=== PATIENT | female | born 1955 | race Caucasian/White ===

== ENCOUNTER 2022-09-21 10:07 | Outpatient (OUT) | payer MEDICARE, SELFPAY ==
--- NOTE | 2022-09-21 10:11 | XR_ITS ---
The [address] [address] Patient Name: GILLIAN HERMOSILLO MRN: [id number] date: 1955 Sex: F Assigned Patient Location: [facility] Current Patient Location: [facility] Accession/Order Number: [id number] Exam Date: 09/21/2022 10:30 Report Date: 09/21/2022 16:41 At the request of: JOSEPH DOOLEY Procedure: XR DEXA axial skeleton EXAMINATION: XR DEXA axial skeleton, 09/21/2022 10:30 AM EDT HISTORY: Postmenopausal Z78.0 COMPARISON: 2018. TECHNIQUE: Dual-energy X-ray absorptiometry (DEXA) bone density study performed for the axial skeleton. HISTORY: Postmenopausal Z78.0 FINDINGS: Bone mineral density AP spine L1-L4 measures 1.083 g/sq cm. T score -0.8. WHO classification: Normal. The lowest bone mineral densities the left femoral trochanter measuring 0.671 g/sq cm. T score -1.6. WHO classification: Osteopenia IMPRESSION: Osteopenia. Moderate fracture risk Electronically authenticated by: ENIO MOHAN Date: 09/21/2022 16:41
== END 2022-09-21 10:08 | disposition home or self-care (01) ==
LOC: RAD 10:07
PROVIDERS: PCP Family Medicine; Visit Provider Physician Assistant
DX: Z78.0 Asymptomatic menopausal state (principal); M85.852 Other specified disorders of bone density and structure, left thigh
CPT/HCPCS: 77080

== ENCOUNTER 2022-10-18 11:01 | Emergency (ER) | payer MEDICARE, SELFPAY ==
[2022-10-18 11:05] VITALS: BP 143/91; PULSE 95; RESP 18; TEMP 36.9; O2SAT 97; BMI 26.0
--- NOTE | 2022-10-18 11:16 | ED.LOWEXI1 ---
HPI - Extremity Injury (Lower) General Chief Complaint: Extremity Injury, Lower Stated Complaint: lower extremity injury right fallon Time Seen by Provider: 10/18/22 11:08 Source: patient Mode of arrival: walk-in Limitations: no limitations History of Present Illness HPI Narrative: 66-year-old female presents for a wound to her right lower leg sustained a week ago at the gym when she tripped and fell and scraped her leg. Now it's red. She is worried about infection. It's been more than ten years since her last tetanus shot. No purulent drainage and no fever. Related Data Previous Rx's Medication Instructions Recorded amoxicillin 875 mg-potassium 1 tab PO BID #20 tabs 10/18/22 clavulanate 125 mg tablet Allergies Allergy/AdvReac Type Severity Reaction Status Date / Time codeine Allergy Severe Verified 10/18/22 11:08 Review of Systems ROS Narrative A ten point review of systems is negative except as noted above. Exam Narrative Exam Narrative: Nurses note and vital signs reviewed and patient is not hypoxic. General: The patient appears well and in no apparent distress. Patient is resting comfortably on cart. Skin: Warm, dry, no pallor noted. there are two adjacent abrasions on the right lower leg anterolaterally. There is some mild surrounding erythema. No abscess appearing drainage or lymphangitis. Head: Normocephalic, atraumatic Eye: Normal conjunctiva, no drainage Ears, Nose, Mouth, and Throat: oral mucosa is moist. Nares patent. Cardiovascular: Regular Rate and Rhythm Respiratory: Patient is in no distress, no accessory muscle use, lungs are clear to auscultation, no wheezing, rales or rhonchi Back: non-tender GI: soft and nontender Musculoskeletal: The patient has no evidence of calf tenderness, no pitting edema, symmetrical pulses noted bilaterally Neurological: A&O, normal speech Psychiatric: Cooperative Constitutional Vital Signs, click to edit/add: Last Vital Signs Temp 98.4 F 10/18/22 11:05 Pulse 95 H 10/18/22 11:05 Resp 18 10/18/22 11:05 BP 143/91 H 10/18/22 11:05 Pulse Ox 97 10/18/22 11:05 O2 Del Method Room Air 10/18/22 11:05 Course Vital Signs Vital signs: Vital Signs Temperature 98.4 F 10/18/22 11:05 Pulse Rate 95 H 10/18/22 11:05 Respiratory Rate 18 10/18/22 11:05 Blood Pressure 143/91 H 10/18/22 11:05 Pulse Oximetry 97 10/18/22 11:05 Oxygen Delivery Method Room Air 10/18/22 11:05 Temperature 98.4 F 10/18/22 11:05 Pulse Rate 95 H 10/18/22 11:05 Respiratory Rate 18 10/18/22 11:05 Blood Pressure 143/91 H 10/18/22 11:05 Pulse Oximetry 97 10/18/22 11:05 Oxygen Delivery Method Room Air 10/18/22 11:05 MDM - Extremity Injury (Lower) MDM Narrative Medical decision making narrative: She has mild cellulitis of her leg. She doesn't require admission the hospital. She was given IM Ancef and tetanus status was updated and she was prescribed Augmentin. Treatment diagnosis and follow-up were discussed with the patient. Differential Diagnosis Differential diagnosis: Likely other (cellulitis, abscess, abrasion) Discharge Plan Discharge Chief Complaint: Extremity Injury, Lower Clinical Impression: Cellulitis Patient Disposition: Home, Self-Care Time of Disposition Decision: 11:40 Condition: Good Mode of Transportation: Private Vehicle Prescriptions / Home Meds: New amoxicillin-pot clavulanate 875-125 mg tablet 1 tab PO BID Qty: 20 0RF Instructions: Cellulitis (ED), Warm Compress or Soak (ED) Stand Alone Forms: Portal Instructions Referrals: Kenan Valle MD [Primary Care Provider] - 1 week
[2022-10-18] MEDS: ADACEL DIPH,PERTUSS(ACELL),TET VAC/PF 0.5 ML ADULT SYRINGE IM (11:38)
[2022-10-18] MEDS: CEFAZOLIN SODIUM 1,000 MG VIAL 1000 MG IM (11:47)
== END 2022-10-18 12:02 | disposition home or self-care (01) ==
PROVIDERS: Emergency Provider Emergency Medicine; PCP Family Medicine
DX: L03.115 Cellulitis of right lower limb (principal); Z23 Encounter for immunization
CPT/HCPCS: 90471; 90715; 96372; 99284

== ENCOUNTER 2022-10-21 17:39 | Emergency (ER) | payer MEDICARE, SELFPAY ==
[2022-10-21 17:51] VITALS: BP 143/93; PULSE 80; RESP 16; TEMP 36.7; O2SAT 100; BMI 26.0
--- NOTE | 2022-10-21 18:09 | ED_ITS ---
Documented by User: Belen Girard 10/21/22 18:12 HPI - General Adult General Chief complaint: Extremity Injury, Lower Stated complaint: WOUND CHECK Time Seen by Provider: 10/21/22 17:47 Source: patient Mode of arrival: walk-in History of Present Illness HPI narrative: Patient presents to the emergency room for recheck of her right lower extremity wound. Patient injured her leg while at the gym several weeks ago. She is currently on antibiotics. She states she's been covering it at night and leaving open to air during the day. wound has grass and debris in the wound. Is dry and no acute drainage noted. Appears to be healing well. Related Data Previous Rx's Medication Instructions Recorded amoxicillin 875 mg-potassium 1 tab PO BID #20 tabs 10/18/22 clavulanate 125 mg tablet etodolac 400 mg tablet (Lodine) 400 mg PO Q8H PRN pain #20 tabs 10/18/22 Allergies Allergy/AdvReac Type Severity Reaction Status Date / Time codeine Allergy Severe Verified 10/18/22 11:08 Review of Systems ROS Narrative All Systems are negative except as noted/marked.All systems reviewed and otherwise negative [facility] Medical History (Updated 10/21/22 @ 18:10 by Mandy Darden) Exam Constitutional Vital Signs, click to edit/add: Last Vital Signs Temp 98.0 F 10/21/22 17:51 Pulse 80 10/21/22 17:51 Resp 16 10/21/22 17:51 BP 143/93 H 10/21/22 17:51 Pulse Ox 100 10/21/22 17:51 O2 Del Method Room Air 10/21/22 17:51 Course Vital Signs Vital signs: Vital Signs Temperature 98.0 F 10/21/22 17:51 Pulse Rate 80 10/21/22 17:51 Respiratory Rate 16 10/21/22 17:51 Blood Pressure 143/93 H 10/21/22 17:51 Pulse Oximetry 100 10/21/22 17:51 Oxygen Delivery Method Room Air 10/21/22 17:51 Temperature 98.0 F 10/21/22 17:51 Pulse Rate 80 10/21/22 17:51 Respiratory Rate 16 10/21/22 17:51 Blood Pressure 143/93 H 10/21/22 17:51 Pulse Oximetry 100 10/21/22 17:51 Oxygen Delivery Method Room Air 10/21/22 17:51 Medical Decision Making MDM Narrative Medical decision making narrative: Patient presents here for wound evaluation. I explained to pt to keep covered during day and open to air at night. Keep it clean and dry. Patient told continue with her antibiotics. We did clean the area and redress it with bacitracin dressing. Medical Records Medical records reviewed: Yes I reviewed the patient's medical records Discharge Plan Discharge Chief Complaint: Extremity Injury, Lower Clinical Impression: Visit for wound check Patient Disposition: Home, Self-Care Time of Disposition Decision: 18:08 Condition: Good Mode of Transportation: Private Vehicle Prescriptions / Home Meds: No Action amoxicillin-pot clavulanate 875-125 mg tablet 1 tab PO BID Qty: 20 0RF etodolac [Lodine] 400 mg tablet 400 mg PO Q8H PRN (Reason: pain) Qty: 20 0RF Instructions: Abrasion (ED), Acute Wounds (ED) Stand Alone Forms: Portal Instructions Referrals: Kenan Valle MD [Primary Care Provider] - 1 week Discharge Date/Time: 10/21/22 18:37 Documented by User: Vida Perez MD 10/21/22 18:58 HPI - General Adult General Chief complaint: Extremity Injury, Lower Stated complaint: WOUND CHECK Time Seen by Provider: 10/21/22 17:47 Related Data Previous Rx's Medication Instructions Recorded amoxicillin 875 mg-potassium 1 tab PO BID #20 tabs 10/18/22 clavulanate 125 mg tablet etodolac 400 mg tablet (Lodine) 400 mg PO Q8H PRN pain #20 tabs 10/18/22 Allergies Allergy/AdvReac Type Severity Reaction Status Date / Time codeine Allergy Severe Verified 10/18/22 11:08 [facility] Medical History (Updated 10/21/22 @ 18:10 by Mandy Darden) Exam Constitutional Vital Signs, click to edit/add: Last Vital Signs Temp 98.0 F 10/21/22 17:51 Pulse 80 10/21/22 17:51 Resp 16 10/21/22 17:51 BP 143/93 H 10/21/22 17:51 Pulse Ox 100 10/21/22 17:51 O2 Del Method Room Air 10/21/22 17:51 Course Vital Signs Vital signs: Vital Signs Temperature 98.0 F 10/21/22 17:51 Pulse Rate 80 10/21/22 17:51 Respiratory Rate 16 10/21/22 17:51 Blood Pressure 143/93 H 10/21/22 17:51 Pulse Oximetry 100 10/21/22 17:51 Oxygen Delivery Method Room Air 10/21/22 17:51 Temperature 98.0 F 10/21/22 17:51 Pulse Rate 80 10/21/22 17:51 Respiratory Rate 16 10/21/22 17:51 Blood Pressure 143/93 H 10/21/22 17:51 Pulse Oximetry 100 10/21/22 17:51 Oxygen Delivery Method Room Air 10/21/22 17:51 Medical Decision Making MDM Narrative Medical decision making narrative: Patient presents here for wound evaluation. I explained to pt to keep covered during day and open to air at night. Keep it clean and dry. Patient told continue with her antibiotics. We did clean the area and redress it with bacitracin dressing. Attending physician attestation I have reviewed the mid-level documentation, agree with the documentation, medical decision making and treatment plan as outlined by the mid-level provider. Discharge Plan Discharge Chief Complaint: Extremity Injury, Lower Clinical Impression: Visit for wound check Patient Disposition: Home, Self-Care Time of Disposition Decision: 18:08 Condition: Good Mode of Transportation: Private Vehicle Prescriptions / Home Meds: No Action amoxicillin-pot clavulanate 875-125 mg tablet 1 tab PO BID Qty: 20 0RF etodolac [Lodine] 400 mg tablet 400 mg PO Q8H PRN (Reason: pain) Qty: 20 0RF Instructions: Abrasion (ED), Acute Wounds (ED) Stand Alone Forms: Portal Instructions Referrals: Kenan Valle MD [Primary Care Provider] - 1 week Discharge Date/Time: 10/21/22 18:37
[2022-10-21] MEDS: BACITRACIN 0.9 GM PACKET 1 PACKET TOPICAL (18:35)
== END 2022-10-21 18:37 | disposition home or self-care (01) ==
PROVIDERS: Emergency Provider Emergency Medicine; PCP Family Medicine
DX: Z48.00 Encounter for change or removal of nonsurgical wound dressing (principal)
CPT/HCPCS: 99282

== ENCOUNTER 2023-01-21 10:26 | Outpatient (OUT) | payer MEDICARE, SELFPAY ==
[2023-01-21 11:10] LABS: Basophils Absolute Auto 0.1 10^3/uL (0.0-0.1); Basophils Percent Auto 1.5 % (0.2-2.0); Eosinophils Absolute Auto 0.1 10^3/uL (0.0-0.7); Eosinophils Percent Auto 1.5 % (0.9-7.0); Hematocrit 38.2 % (36.0-48.0); Hemoglobin 12.2 g/dL (12.0-16.0); Immature Granulocytes Abs Auto 0.01 10^3/uL (0.00-0.03); Immature Granulocytes Pct Auto 0.3 % (0.0-0.5); Lymphocytes Absolute Auto 1.2 10^3/uL (1.2-3.8); Mean Corpuscular HGB Conc 31.9 g/dL (29.9-35.2); Mean Corpuscular Hemoglobin 26.9 pg (26.7-34.0); Mean Corpuscular Volume 84.1 fL (81.0-99.0); Mean Platelet Volume 9.9 fL (9.5-13.5); Monocytes Absolute Auto 0.3 10^3/uL (0.3-0.8); Monocytes Percent Auto 8.9 % (1.7-12.0); Neutrophils Absolute Auto 1.8 10^3/uL (1.4-6.5); Neutrophils Percent Auto 52.8 % (43.0-75.0); Platelet Count 264 10^3/uL (150-450); Red Blood Count 4.54 10^6/uL (4.20-5.40); Red Cell Distribution Width 14.2 % (11.0-15.0); White Blood Count 3.4 10^3/uL (4.0-11.0)
[2023-01-21 11:41] LABS: Alanine Aminotransferase 24 U/L (14-59); Alkaline Phosphatase 93 U/L (46-116); Anion Gap 13.7; Aspartate Amino Transferase 66 U/L (15-37); BUN Creatinine Ratio 13.9; Bilirubin Total 0.4 mg/dL (0.2-1.0); Calcium 9.2 mg/dL (8.5-10.1); Carbon Dioxide 24.8 mmol/L (21.0-32.0); Chloride 102 mmol/L (98-107); Chol HDL Ratio 2.1; Cholesterol 208 mg/dL (<=200); Estimated GFR (African America >60 (>=60); Estimated GFR (Non-African Ame 55 (>=60); Free T3 3.13 pg/mL (2.18-3.98); Glucose 87 mg/dL (74-106); HDL Cholesterol 97 mg/dL (40-60); Potassium 3.5 mmol/L (3.5-5.1); Sodium 137 mmol/L (136-145); Thyroid Stimulating Hormone 0.954 uIU/mL (0.358-3.740); Triglycerides 77 mg/dL (<=150); VLDL CHOLESTEROL 15.4 mg/dL
[2023-01-21 18:43] LABS: Estimated Average Glucose 103 mg/dL; Glycohemoglobin A1C 5.2 % (4.5-6.2)
== END 2023-01-21 10:27 | disposition home or self-care (01) ==
LOC: LAB 10:27
PROVIDERS: PCP Family Medicine; Visit Provider Family Medicine
DX: K21.9 Gastro-esophageal reflux disease without esophagitis (principal); Z23 Encounter for immunization; E04.2 Nontoxic multinodular goiter; F41.0 Panic disorder [episodic paroxysmal anxiety]; M85.80 Other specified disorders of bone density and structure, unspecified site; E78.5 Hyperlipidemia, unspecified; R73.09 Other abnormal glucose; E55.9 Vitamin D deficiency, unspecified
CPT/HCPCS: 36415; 80053; 80061; 82306; 83036; 84436; 84443; 84481; 85025

== ENCOUNTER 2023-05-29 21:09 | Outpatient (REF) | payer MEDICARE, SELFPAY ==
--- OUTSIDE RECORDS SUMMARY | 2023-05-29 21:15 | XMS_ITS | CCD ---
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 Role Phone PHYSICIAN, DEFAULT Unavailable Unavailable PHYSICIAN, DEFAULT Unavailable Unavailable JANINE VALLELAS Unavailable Unavailable JI, ABDULAZIM Unavailable Unavailable JI, ABDULAZIM Unavailable Unavailable JANINE VALLELAS Unavailable Unavailable ANAMIKA VALLE Unavailable Unavailable MS Unavailable Unavailable JI, ABDULAZIM Unavailable Unavailable MS Unavailable Unavailable BOUCHRA HARPER Unavailable Unavailable ANAMIKA VALLE Referring Unavailable ANAMIKA VALLE Primary Care Unavailable ANAMIKA VALLE Referring Unavailable ANAMIKA VALLE Primary Care Unavailable Anamika Valle Primary Care Provider MD Anamika Valle Primary Care Provider [phone] Self, Referral Attending Provider Unavailable DR ANAMIKA VALLE Admitting Unavailable TORI, DR WILLSON Attending Unavailable DR ANAMIKA VALLE Primary Care Unavailable DR ANAMIKA VALLE Consulting Unavailable DR Jeronimo Castle Consulting Unavailable DR ANAMIKA VALLE Primary Care Unavailable DR ERIS REHMAN Admitting Unavailable FLACO, DR ERIS Irwin Attending Unavailable DR ERIS REHMAN Consulting Unavailable DR Jeronimo Castle Consulting Unavailable DEXTER SAUNDERS Consulting Unavailable KELLY LEWIS Consulting Unavailable JERONIMO HERNANDES Consulting Unavailable DR ANAMIKA VALLE Admitting Unavailable DR ANAMIKA VALLE Attending Unavailable DR ANAMIKA VALLE Primary Care Unavailable DR ANAMIKA VALLE Consulting Unavailable Corrine, DR Decker Consulting Unavailable DR ANAMIKA VALLE Admitting Unavailable TORI, DR WILLSON Attending Unavailable DR ANAMIKA VALLE Primary Care Unavailable DR ANAMIKA VALLE Consulting Unavailable MARQUES, DR ENIO Vasquez Consulting Unavailable DR ANAMIKA VALLE Admitting Unavailable DR ANAMIKA VALLE Attending Unavailable DR ANAMIKA VALLE Primary Care Unavailable TORI, DR WILLSON Consulting Unavailable TOIR, DR WILLSON Admitting Unavailable TORI, DR WILLSON Attending Unavailable DR ANAMIKA VALLE Primary Care Unavailable TORI, DR WILLSON Consulting Unavailable WEST, DR ENIO Vasquez Consulting Unavailable DESTINI DOOLEY Admitting Unavailable DESTINI DOOLEY Attending Unavailable DR ANAMIKA VALLE Primary Care Unavailable DESTINI DOOLEY Consulting Unavailable Rubén MANUEL Attending Unavailable Anamika Valle Referring Unavailable Anamika Valle MD Primary Care Provider [phone] Anamika Valle MD Unavailable ANAMIKA VALLE Referring Unavailable ANAMIKA VALLE Primary Care Unavailable CLAIRE MORALES Attending Unavailable MD Anamika Valle Primary Care Provider [phone] Self, Referral Attending Provider Unavailable Anamika Valle Primary Care Unavailable Self, Referral Attending Unavailable Self, Referral Admitting Unavailable MONIE NAVARRO Attending Unavailable MONIE NAVARRO Attending Unavailable MONIE NAVARRO Attending Unavailable Allergies Allergy Classification Reported Allergen(s) Allergy Type Date of Onset Reaction(s) Facility (6 sources) Codeine; Translations: [CODEINE] Drug Allergy 5 Nausea Only [facility] Repository (1 source) Etodolac Drug Allergy 7 [facility] Repository (1 source) no latex allergy [Other] Propensity to adverse reactions 5 [facility] (1 source) OTHER; Translations: [OTHER] Propensity to adverse reactions (disorder) 5 [facility] Repository (1 source) Unable to Assess Drug allergy (disorder) 9 [facility] Repository Medications Current Medications Medication Drug Class(es) Dates Sig (Normalized) Sig (Original) cephalexin 500 mg oral capsule (2 sources) Cephalosporin Antibacterial Start: 06-01-2018 take 1 capsule by mouth three times daily cephALEXin (KEFLEX) 500 MG capsule Take 1 capsule by mouth 3 times daily 21 capsule 0 06/01/2018 Active Completed/Discontinued Medications Medication Drug Class(es) Dates Sig (Normalized) Sig (Original) ALPRAZolam 0.5 mg oral tablet (1 source) Benzodiazepine Start: 07-03-2006 take 1 tablet by mouth once at bedtime alprazolam (XANAX) 0.5 mg ORAL Tab Indications: Subjective tinnitus , Mixed conductive and sensorineural hearing loss ONE BY MOUTH EVERY HS 30 6 07/03/2006 Active Comment on above: ONE BY MOUTH EVERY H S amitriptyline hydrochloride 50 mg oral tablet (1 source) Tricyclic Antidepressant Start: 10-20-2022 take 1 tablet by mouth once daily in the evening amitriptyline (ELAVIL) 50 mg tablet Take 50 mg by mouth every evening. 0 10/20/2022 Active Comment on above: Take 50 mg by mouth every evening. amoxicillin 875 mg / clavulanate 125 mg oral tablet (1 source) Penicillin-class Antibacterial Start: 10-18-2022 take 1 tablet by mouth every twelve hours amoxicillin-clavula te acid (AUGMENTIN) 875-125 mg per tablet Take 1 tablet by mouth every 12 hours. 0 10/18/2022 Active Comment on above: Take 1 tablet by diego th every 12 hours. cyclobenzaprine hydrochloride 10 mg oral tablet (1 source) Muscle Relaxant Start: 09-14-2022 take 1 tablet by mouth three times daily cyclobenzaprine (FLEXERIL) 10 mg tablet Take 10 mg by mouth three times daily. 0 09/14/2022 Active Comment on above: Take 10 mg by mouth three times daily. doxepin hydrochloride 10 mg oral capsule (1 source) Tricyclic Antidepressant Start: 10-20-2022 take 1-2 capsules by mouth at bedtime as needed for anxiety doxepin capsule 10 mg TAKE 1 TO 2 CAPSULES BY MOUTH AT BEDTIME NEEDED FOR ANXIETY 0 10/20/2022 Active Comment on above: TAKE 1 TO 2 CAPSULES BY MOUTH AT BEDTIME NEEDED FOR ANXIETY estrogens, conjugated (prison) 0.625 mg oral tablet (1 source) Estrogen Start: 11-29-2004 take 1 tablet by mouth once daily PREMARIN 0.625 MG ORAL TAB Take one(1) tablet daily. 0 11/29/2004 Active Comment on above: Take one(1) tablet d aily. famotidine 40 mg oral tablet (1 source) Histamine-2 Receptor Antagonist Start: 09-14-2022 take 1 tablet by mouth twice daily, then take 1 tablet by mouth at bedtime famotidine (PEPCID) 40 mg tablet TAKE 1 TABLET BY MOUTH TWICE DAILY with one dose being AT BEDTIME 0 09/14/2022 Active Comment on above: TAKE 1 TABLET BY DIEGO TH TWICE DAILY with one dose being AT BEDTIME meloxicam 7.5 mg oral tablet (1 source) Nonsteroidal Anti-inflammatory Drug Start: 10-17-2022 take 1 tablet by mouth once meloxicam (MOBIC) 7.5 mg tablet Take 1 tablet by mouth every afternoon. 0 10/17/2022 Active Comment on above: Take 1 tablet by diego th every afternoon. pantoprazole 40 mg delayed release oral tablet (1 source) Proton Pump Inhibitor Start: 07-15-2022 take 1 tablet by mouth once pantoprazole DR (PROTONIX) 40 mg tablet Take 1 tablet by mouth every afternoon. 0 07/15/2022 Active Comment on above: Take 1 tablet by diego th every afternoon. raNITIdine 150 mg oral tablet (1 source) Histamine-2 Receptor Antagonist Start: 11-29-2004 take 1 tablet by mouth once daily ZANTAC 150 MG ORAL TAB Take one(1) tablet daily. 0 11/29/2004 Active Comment on above: Take one(1) tablet d aily. sucralfate 1000 mg oral tablet (1 source) Aluminum Complex Start: 09-14-2022 take 1 tablet by mouth four times daily at bedtime sucralfate (CARAFATE) 1 gram tablet TAKE 1 TABLET BY MOUTH FOUR TIMES DAILY (BEFORE MEALS & AT BEDTIME ON AN EMPTY STOMACH) 0 09/14/2022 Active Comment on above: TAKE 1 TABLET BY DIEGO TH FOUR TIMES DAILY (BEFORE MEALS & AT BEDTIME ON AN EMPTY STOMACH) Problems Active Problems Problem Classification Problem Date Documented Date Episodic/Chronic Abdominal hernia (3 sources) Ventral hernia without obstruction or gangrene; Translations: [Hernia of anterior abdominal wall] Onset: 09-05-2021 10-23-2022 Episodic Allergic reactions (1 source) Allergy status to narcotic agent status; Translations: [ALLERGY STATUS TO NARCOTIC AGENT STATUS] Onset: 03-17-2018 Episodic Immunizations and screening for infectious disease (1 source) Encounter for screening for human papillomavirus (HPV); Translations: [ENC SCREENING HUMAN PAPILLOMAVIRUS] Onset: 04-22-2022 Episodic Occlusion or stenosis of precerebral arteries (4 sources) Occlusion and stenosis of bilateral carotid arteries; Translations: [OCCLUSION AND STENOS ANDREAS CAROTID ART] Onset: 06-08-2021 Chronic Other connective tissue disease (4 sources) Radial styloid tenosynovitis [de Quervain]; Translations: [RADIAL STYLOID TENOSYNOVITIS [DE QUERVAIN]] Onset: 03-17-2018 Episodic Other ear and sense organ disorders (1 source) Conductive hearing loss; Translations: [Conductive hearing loss, unspecified] Onset: 11-14-2005 10-05-2022 Chronic Other screening for suspected conditions (not mental disorders or infectious disease) (4 sources) Encounter for screening for malignant neoplasm of cervix; Translations: [ENC SCREENING MALIG NEOPLASM CERV] Onset: 04-19-2022 Episodic Screening and history of mental health and substance abuse codes (1 source) Personal history of nicotine dependence; Translations: [PERSONAL HISTORY OF NICOTINE DEPENDENCE] Onset: 03-17-2018 Episodic Thyroid disorders (8 sources) Nontoxic single thyroid nodule; Translations: [Nontoxic multinodular goiter] Onset: 11-09-2021 Chronic Unclassified (2 sources) Unknown / UNK(Unknown) Onset: 03-17-2018 Unclassified (1 source) Encounter for screening mammogram for malignant neoplasm of breast; Translations: [Encounter for screening mammogram for malignant neoplasm of breast] Onset: 12-24-2022 Past or Other Problems Problem Classification Problem Date Documented Da te Episodic/Chronic Appendicitis and other appendiceal conditions (4 sources) Unspecified acute appendicitis; Translations: [UNSPECIFIED ACUTE APPENDICITIS] Onset: 08-31-2021 Episodic Deficiency and other anemia (1 source) Anemia, unspecified; Translations: [ANEMIA UNSPECIFIED] Onset: 11-10-2021 Episodic Diabetes mellitus without complication (1 source) Other abnormal glucose; Translations: [OTHER ABNORMAL GLUCOSE] Onset: 11-10-2021 Episodic Results Test Name Value Interpretation Reference Range Facility MM screening mammo BI w/CADo n 12-24-2022 MM screening mammo BI w/CAD [facility] [place] [address] Mammography Report Signed Patient: Xena Ewing MR#: [id number] : 1955 Acct:[id number] Age/Sex: 67 / F ADM Date: 12/24/22 Loc: [place] Room: Type: [facility] Attending Dr: Referral Self Copies to: Anamika Valle MD SELF,REFERRAL Ordering Provider: SELF,REFERRAL Date of Service: 12/24/22 MM/MM screening mammo BI w/CAD: SCREENING CLINICAL DATA: Screening for malignancy. BILATERAL SCREENING MAMMOGRAMS - FULL FIELD DIGITAL WITH TOMOSYNTHESIS AND CAD Tomosynthesis craniocaudal and mediolateral oblique views of both breasts were obtained using low- dose digital technique. Comparison is made to prior studies from December 02, 2019 through November 21, 2021. This examination was reviewed with the aid of CAD. There is a small amount of heterogeneously dense breast parenchyma been a retroareolar region. There are no developing masses, typically malignant calcifications or architectural distortion. There has been no significant interval change. MM/MM screening mammo BI w/CAD IMPRESSION: NO MAMMOGRAPHIC EVIDENCE OF MALIGNANCY. ROUTINE FOLLOW-UP IS RECOMMENDED IN ONE YEAR. RESULT CODE: 1 Negative DENSITY CODE: 3 (approximately 51-75% glandular) FOLLOW UP: 1YR The false-negative rate of mammography is approximately 10-percent. Management of a palpable abnormality must be based on clinical grounds. Patient was entered into a reminder system with a target due date for the next mammogram. Impression dictated by: Megan Lee M.D.12/24/2022 3:06 PM Dictation Location: [facility] Transcribed By: PINO 12/24/22 150 Dictated By: Megan Lee MD 12/24/22 150 Signed By: 12/24/22 1506 [facility] 10-23-2022 CNOV Office Visit (GENBMI ) -------- XENA EWING ([id number]) 1955 F T Date Time Provider Department 10/23/22 11:30 AM CLAIRE MORALES During your visit today, we recorded the following information about you: Pulse Blood pressure Weight Height 77/minute 125/71 73.1 kg 1.651 m Claire Morales MD 10/23/2022 7:37 PM Signed GENERAL SURGERY NEW PATIENT CONSULTATION HISTORY AND PHYSICAL Date: October 23, 2022 Time: 11:34 AM Name: Xena Ewing Ms. Ewing is here today for my opinion regarding ventral hernia. My final recommendation will be communicated back to the requesting physician by way of shared medical record or letter. HPI: Xena Ewing is a 66 year old female presents for evaluation of ventral hernia. Patient states she was told about this hernia at the time of the diagnosis of her acute appendicitis. She was not aware of it prior to that. She underwent lap appy on August 2021, surgery was uncomplicated, the hernia was not addressed at the time. She now presents for evaluation of this. Currently, she denies abdominal pain. She has some pain in the epigastric region when she does situps. Also has abdominal pain if she eats certain foods that don't agree with her. PAST MEDICAL HISTORY: GERD DeQuervain's tenosynovitis PAST SURGICAL HISTORY: Lap appy FAMILY HISTORY: No family history on file. SOCIAL HISTORY: Social History Tobacco Use Smoking status: Every Day Packs/day: 1.00 Years: 30.00 Total pack years: 30.00 Types: Cigarettes Smokeless tobacco: Current Tobacco comments: Vape Substance Use Topics Alcohol use: Never Comment: occasional Drug use: Yes Types: Marijuana Comment: Medical MEDICATIONS: Prior to Admission Medications: amoxicillin-clavulanic acid (AUGMENTIN) 875-125 mg per tablet Take 1 tablet by mouth every 12 hours. amitriptyline (ELAVIL) 50 mg tablet Take 50 mg by mouth every evening. cyclobenzaprine (FLEXERIL) 10 mg tablet Take 10 mg by mouth three times daily. doxepin capsule 10 mg TAKE 1 TO 2 CAPSULES BY MOUTH AT BEDTIME NEEDED FOR ANXIETY famotidine (PEPCID) 40 mg tablet TAKE 1 TABLET BY MOUTH TWICE DAILY with one dose being AT BEDTIME pantoprazole DR (PROTONIX) 40 mg tablet Take 1 tablet by mouth every afternoon. sucralfate (CARAFATE) 1 gram tablet TAKE 1 TABLET BY MOUTH FOUR TIMES DAILY (BEFORE MEALS AND AT BEDTIME ON AN EMPTY STOMACH) meloxicam (MOBIC) 7.5 mg tablet Take 1 tablet by mouth every afternoon. alprazolam (XANAX) 0.5 mg ORAL Tab ONE BY MOUTH EVERY HS PREMARIN 0.625 MG ORAL TAB Take one(1) tablet daily. (Patient not taking: Reported on 10/23/2022) ZANTAC 150 MG ORAL TAB Take one(1) tablet daily. (Patient not taking: Reported on 10/23/2022) No current facility-administered medications for this visit. ALLERGIES: ALLERGIES Allergen Reactions Codeine No Latex Allergy [O* REVIEW OF SYSTEMS: See HPI PHYSICAL EXAM: BP 125/71 Pulse 77 Ht 165.1 cm (5' 5 ) Wt 73.1 kg (161 lb 1.6 oz) BMI 26.81 kg/m? General appearance: AO, NAD Skin: warm Lungs: bilateral chest rise Heart: RRR Abdomen: soft, ND, hernia palpated supraumbilical, minimal reaction to deep palpation; healed lap scars Extremities: Normal exam of the extremities IMPRESSION: Patient is a 66yo F who presents after an incidentally-found ventral hernia. CT scan reviewed, supraumbilical fat-containing ventral hernia. Patient is currently asymptomatic from this, if not for the CT scan for appendicitis, she was unaware that she had this. I discussed with her the fat contents do not pose a risk for her currently, and that repair is not needed at this time given her lack of symptoms. I discussed with her signs to monitor for, and that repair can certainly be revisited if she develops any of those complaints. Claire Morales MD [facility] cc: Referring provider Anamika Valle [address] [facility] [id number] Medical Decision Making: Problems: Low: Stable chronic illness Data: Independent interpretation of test from other physician/QHCP Medical Decision Making Level: 3 - Low Referring Provider: ANAMIKA VALLE [[id number]] Allergies As of Date: 10/23/2022 Noted Allergy Reaction CODEINE 11/29/2004 no latex allergy [Other] 11/29/2004 Date Reviewed: 10/23/2022 Reviewed by: Shanice Juarez MA - Fully Assessed Reason for Visit: New Patient [172] Primary Visit Diagnosis:Ventral hernia without obstruction or gangrene [K43.9] Prescriptions as of 10/23/2022 - amoxicillin-clavulanic acid (AUGMENTIN) 875-125 mg per tablet Take 1 tablet by mouth every 12 hours. - amitriptyline (ELAVIL) 50 mg tablet Take 50 mg by mouth every evening. - cyclobenzaprine (FLEXERIL) 10 mg tablet Take 10 mg by mouth three times daily. - doxepin capsule 10 mg TAKE 1 TO 2 CAPSULES BY MOUTH AT BEDTIME NEEDED FOR ANXIETY - (more content not included)... Normal [facility] Physician Referralon 023 Physician Referral [id number]: 127 Normal [facility] PAP ACOG PANEL 2: 30 to 65on 04-26-2022 . . Normal [facility] Comment on above: Result Comment: Perf ormed at: WB Performed By: #### [id number] #### [facility] [address] [address] [address] Kayy Virgen Age Gdln ACOG Testing 30-65 Normal [facility] Comment on above: Performed By: #### [id number] #### [facility] [address] [address] [address] Kayy Virgen DIAGNOSIS: Comment Normal [facility] Comment on above: Result Comment: UNSA TISFACTORY FOR EVALUATION. Performed at: WB Performed By: #### [id number] #### [facility] [address] [address] [address] Kayy Virgen HPV Aptima Negative Normal Negative [facility] Comment on above: Result Comment: This nucleic acid amplification test detects fourteen high-risk HPV types (16,18,31,33,35,39,45,51,52,56,58,59,66,68) without differentiation. Performed at: =G Performed By: #### [id number] #### [facility] [address] [address] [address] Kayy Virgen HPV Genotype Reflex Comment Normal [facility] Comment on above: Result Comment: Crit eria not met, HPV Genotype not performed. Performed at: WB Performed By: #### 4 [id number] #### [facility] [address] [address] [address] Kayy Virgen Methodology: Comment Normal [facility] Comment on above: Result Comment: This liquid based ThinPrep(R) pap test was screened with the use of an image guided system. Performed at: WB Performed By: #### [id number] #### [facility] [address] [place] [address] Dr. Kayy Virgen Note: Comment Normal [facility] Comment on above: Result Comment: The Pap smear is a screening test designed to aid in the detection of premalignant and malignant conditions of the uterine cervix. It is not a diagnostic procedure and should not be used as the sole means of detecting cervical cancer. Both false-positive and false-negative reports do occur. . Performed at: WB Performed By: #### [id number] #### [facility] [address] [address] [address] Kayy Virgen Performed by: Comment Normal [facility] Comment on above: Result Comment: Arturo Peters, Engineering Operations Leader (ASCP) Performed at: [facility] Performed By: #### [id number] #### [facility] [address] [place] [address] Dr. Kayy Virgen QC reviewed by: Comment Normal [facility] Comment on above: Result Comment: Pepe Cordova, Supervisory Engineering Operations Leader (ASCP) Performed at: WB Performed By: #### 4 [id number] #### [facility] [address] [place] [address] Dr. Kayy Virgen Recommendation: Comment Normal [facility] Comment on above: Result Comment: Sugg est follow up as clinically appropriate. Performed at: WB Performed By: #### 4 [id number] #### [facility] [address] [place] [address] Dr. Kayy Virgen Specimen adequacy: Comment Normal [facility] Comment on above: Result Comment: Spec imen processed and examined but unsatisfactory for evaluation of epithelial abnormality because of insufficient cellularity. Performed at: WB Performed By: #### [id number] #### [facility] [address] [place] [address] Dr. Kayy Virgen US THYROIDon 01-05-2022 US THYROID EXAMINATION: US THYR OID HISTORY: Thyroid nodule COMPARISON: 06/29/2021, 06/21/2021 TECHNIQUE: Sonographic images of the thyroid gland were obtained. FINDINGS: The right thyroid lobe measures 5.6 x 2.9 x 2.4 cm. Single focal nodule Nodule 1:3.6 x 2.3 x 2.6 cm. Solid, hyperechoic, tall, smooth margins, no calcifications. TR 4 The thyroid isthmus measures 4 mm, homogeneous, no focal nodule The left thyroid lobe is normal in size, contour and homogeneous echotexture measuring 4.8 x 1.6 x 1.7 cm. No nodules over 1 cm IMPRESSION: Stable 3.6 cm right thyroid TR 4 nodule, previously biopsied TI-RADS: [employer] TI-RADS committee's white paper recommendations for thyroid lesions classified as TR3 (mildly suspicious) are listed below: > 1.5 cm. Follow-up ultrasound in 1, 3, and 5 years. > 2.5 cm. FNA. J. Am Anais Radiol 2017;14:587-595. Electronically authenticated by: ENIO MOHAN Date: 2022-01-05 15:25 Normal [facility] T4, T3U, FTI LABCORPon 11-10 Free Thyroxine Index 2.0 Normal 1.2-4.9 [facility] Comment on above: Performed By: #### T HYLC ####[facility] [address] [address]Dr. Kayy Virgen T3 Uptake 26 % Normal 24-39 [facility] Comment on above: Performed By: #### T HYLC ####[facility] [address] [id number]. Kayy Virgen T4 [Mass/Vol] 7.5 ug/dL Normal 4.5-12.0 [facility] Comment on above: Performed By: #### T HYLC ####[facility] [address] [address]Dr. Kayy Virgen CBC AUTO DIFFon 11-09-2021 BASO # 0.1 103/ul Normal 0.0-0.1 [facility] Comment on above: Performed By: #### C BC ####[facility] [address] [id number]. Kayy Virgen Basophils/100 WBC (Bld) 2.1 % Critically high 0.2-2.0 [facility] Comment on above: Performed By: #### C BC ####[facility] [address] [id number]. Kayy Virgen EO # 0.2 103/ul Normal 0.0-0.7 [facility] Comment on above: Performed By: #### C BC ####[facility] [address] [place], [place] [address]Dr. Kayy Virgen Eosinophils/100 WBC (Bld) 5.1 % Normal 0.9-7.0 [facility] Comment on above: Performed By: #### C BC ####[facility] [address] [place], [place] [address]Dr. Kayy Virgen Erythrocyte distribution width (RBC) [Ratio] 14.6 % Normal 11.0-15.0 [facility] Comment on above: Performed By: #### C BC ####[facility] [address] [place], [place] [address]Dr. Kayy Virgen Hematocrit (Bld) [Volume fraction] 38.5 % Normal 36.0-48.0 [facility] Comment on above: Performed By: #### C BC ####[facility] [address] [place], [place] [id number]. Kayy Virgen Hemoglobin (Bld) [Mass/Vol] 12.4 g/dL Normal 12.0-16.0 [facility] Comment on above: Performed By: #### C BC ####[facility] [address] [address]Dr. Kayy Virgen IG # 0.01 10e3/ul Normal 0.00-0.03 [facility] Comment on above: Performed By: #### C BC ####[facility] [address] [place], [place] [address]Dr. Kayy Virgen IG % 0.2 % Normal 0.0-0.5 [facility] Comment on above: Performed By: #### C BC ####[facility] [address] [id number]. Kayy Virgen LYMPH # 1.5 103/ul Normal 1.2-3.8 [facility] Comment on above: Performed By: #### C BC ####[facility] [address] [place], [place] [address]Cp. Kayy Virgen Lymphocytes/100 WBC (Bld) 33.7 % Normal 20.5-60.0 [facility] Comment on above: Performed By: #### C BC ####[facility] [address] [place] [id number]. Kayy Param MANUAL DIFF REQ NO Normal [facility] Comment on above: Performed By: #### C BC ####[facility] Zxsrqwohfn[address] [place] [id number]. Kayy Virgen MCH (RBC) [Entitic mass] 26.7 pg Normal 26.7-34.0 [facility] Comment on above: Performed By: #### C BC ####[facility] Pcndvirmwj[address] [place] [id number]. Kayy Virgen MCHC (RBC) [Mass/Vol] 32.2 g/dL Normal 29.9-35.2 [facility] Comment on above: Performed By: #### C BC ####[facility] [address]ipoibg[address] [place] [id number]. Kayy Virgen MCV (RBC) [Entitic vol] 82.8 fL Normal 81.0-99.0 [facility] Comment on above: Performed By: #### C BC ####[facility] Qxbbdvtova22[address] [place] [id number]. Kayy Virgen MONO # 0.5 103/ul Normal 0.3-0.8 [facility] Comment on above: Performed By: #### C BC ####[facility] Kxhyullmlb[address] [place] [id number]. Kayy Virgen Monocytes/100 WBC (Bld) 11.9 % Normal 1.7-12.0 [facility] Comment on above: Performed By: #### C BC ####[facility] Fqsrtajfru[address] [place] [id number]. Kayy Virgen NEUT # 2.0 103/ul Normal 1.4-6.5 [facility] Comment on above: Performed By: #### C BC ####[facility] Ljvxruseie[address] [place] [id number]. Kayy Param Neutrophils/100 WBC (Bld) 47.0 % Normal 43.0-75.0 [facility] Comment on above: Performed By: #### C BC ####[facility] Npgzxsrpkp[address] [place] [id number]. Kayy Virgen Platelet mean volume (Bld) [Entitic vol] 9.7 fL Normal 9.5-13.5 [facility] Comment on above: Performed By: #### C BC ####[facility] Rhkopmyxay[address] [place] [id number]. Kayy Virgen PLT 269 103/ul Normal 150-450 [facility] Comment on above: Performed By: #### C BC ####[facility] Defcufgbly[address] [place] [id number]. Kayy Virgen RBC 4.65 106/ul Normal 4.20-5.40 [facility] Comment on above: Performed By: #### C BC ####[facility] Fkahgqkwpy[address] [place] [id number]. Kayy Virgen WBC 4.3 103/ul Normal 4.0-11.0 [facility] Comment on above: Performed By: #### C BC ####[facility] [address]upstvlegl[address] [place] [id number] Virgen GLYCOHEMOGLOBIN A1Con 2021 ADA RECOMMENDATION SEE BELOW Normal [facility] Comment on above: Result Comment: ADA RECOMMENDED LIMIT 4.0 - 6.0 ADA THERAPEUTIC TARGET < 7.0 ACTION SUGGESTED > 7.0 Performed By: #### A 1C #### [facility] [address], [place] [address] Dr. Kayy Virgen Glucose [Mass/Vol] 117 mg/dL Normal [facility] Comment on above: Performed By: #### A 1C #### [facility] [address] [place] [address] Dr. Kayy Virgen HbA1c (Bld) [Mass fraction] 5.7 % Normal 4.5-6.2 [facility] Comment on above: Performed By: #### A 1C #### [facility] [address] [place] [address] Dr. Kayy Virgen IRONon 11-09-2021 Iron [Mass/Vol] 100.0 ug/dL Normal 50.0-170.0 [facility] Comment on above: Performed By: #### I STEPHANI #### [facility] [address] [place] [address] Dr. aKyy Virgen PROF 14(COMP METB)on 022 Albumin [Mass/Vol] 4.0 g/dL Normal 3.4-5.0 [facility] Comment on above: Performed By: #### C MP, TSH #### [facility] [address] [place] [address] Dr. Kayy Virgen Albumin/Globulin [Mass ratio] 1.1 {ratio} Normal [facility] Comment on above: Performed By: #### C MP, TSH #### [facility] [address] [place] [address] Dr. Kayy Virgen ALP [Catalytic activity/Vol] 109 U/L Normal 46-116 [facility] Comment on above: Performed By: #### C MP, TSH #### [facility] [address] [place] [address] Dr. Kayy Virgen ALT [Catalytic activity/Vol] 26 U/L Normal 14-59 [facility] Comment on above: Performed By: #### C MP, TSH #### [facility] [address] [place] [address] Dr. Kayy Virgen Anion gap [Moles/Vol] 11.2 mmol/L Normal [facility] Comment on above: Performed By: #### C MP, TSH #### [facility] [address] [place] [address] Dr. Kayy Virgen AST [Catalytic activity/Vol] 58 U/L Critically high 15-37 [facility] Comment on above: Performed By: #### C MP, TSH #### [facility] [address] [place] [address] [address] Kayy Virgen Bilirubin [Mass/Vol] 0.4 mg/dL Normal 0.2-1.0 [facility] Comment on above: Performed By: #### C MP, TSH #### [facility] [address] [place] [address] [address] Kayy Virgen Calcium [Mass/Vol] 9.8 mg/dL Normal 8.5-10.1 [facility] Comment on above: Performed By: #### C MP, TSH #### [facility] [address] [place] [address] [address] Kayy Virgen Chloride [Moles/Vol] 103 mmol/L Normal 98-107 [facility] Comment on above: Performed By: #### C MP, TSH #### [facility] [address] [place] [address] [address] Kayy Virgen CO2 [Moles/Vol] 28.2 mmol/L Normal 21.0-32.0 [facility] Comment on above: Performed By: #### C MP, TSH #### [facility] [address] [place] [address] [address] Kayy Virgen Creatinine [Mass/Vol] 0.98 mg/dL Normal 0.55-1.02 [facility] Comment on above: Performed By: #### C MP, TSH #### [facility] [address] [place] [address] [address] Kayy Virgen EGFR-AF CAMEROONIAN >60 Normal >=60 [facility] Comment on above: Performed By: #### C MP, TSH #### [facility] [address] [place] [address] [address] Kayy Virgen EGFR-NON AF CAMEROONIAN 57 mL/min/1.73m2 Critically low >=60 [facility] Comment on above: Performed By: #### C MP, TSH #### [facility] [address] [place] [address] [address] Kayy Virgen Globulin (S) [Mass/Vol] 3.8 g/dL Normal [facility] Comment on above: Performed By: #### C MP, TSH #### [facility] [address] [place] [address] [address] Kayy Virgen Glucose [Mass/Vol] 102 mg/dL Normal 74-106 [facility] Comment on above: Performed By: #### C MP, TSH #### [facility] [address] [place] [address] [address] Kayy Virgen Potassium [Moles/Vol] 4.4 mmol/L Normal 3.5-5.1 [facility] Comment on above: Performed By: #### C MP, TSH #### [facility] [address] [place] [address] [address] Kayy Virgen Protein [Mass/Vol] 7.8 g/dL Normal 6.4-8.2 [facility] Comment on above: Performed By: #### C MP, TSH #### [facility] [address] [place] [address] [address] Kayy Virgen Sodium [Moles/Vol] 138 mmol/L Normal 136-145 [facility] Comment on above: Performed By: #### C MP, TSH #### [facility] [address] [place] [address] [address] Kayy Virgen Urea nitrogen [Mass/Vol] 22.0 mg/dL Critically high 7.0-18.0 [facility] Comment on above: Performed By: #### C MP, TSH #### [facility] [address] [place] [address] [address] Kayy Virgen Urea nitrogen/Creatinine [Mass ratio] 22.4 mg/mg Normal [facility] Comment on above: Performed By: #### C MP, TSH #### [facility] [address] [place] [address] [address] Kayy Virgen TSHon 11-09-2021 TSH 1.200 uIU/mL Normal 0.358-3.740 [facility] Comment on above: Performed By: #### C MP, TSH #### [facility] [address] [place] [address] [address] Kayy Virgen AMYLASEon 08-31-2021 Amylase [Catalytic activity/Vol] 34 U/L Normal 25-115 [facility] Comment on above: Performed By: #### A MY, CMP, LIPA ####[facility] [address] [place] [address]Dr. Kayy Virgen CBC AUTO DIFFon 08-31-2021 BASO # 0.1 103/ul Normal 0.0-0.1 [facility] Comment on above: Performed By: #### C BC ####[facility] [address] [place] [address]Dr. Kayy Virgen Basophils/100 WBC (Bld) 0.8 % Normal 0.2-2.0 [facility] Comment on above: Performed By: #### C BC ####[facility] [address]ithfm[address] [place] [address]Dr. Kayy Virgen EO # 0.0 103/ul Normal 0.0-0.7 [facility] Comment on above: Performed By: #### C BC ####[facility] [address] [place], [place] [address]Dr. Kayy Virgen Eosinophils/100 WBC (Bld) 0.6 % Critically low 0.9-7.0 [facility] Comment on above: Performed By: #### C BC ####[facility] [address]eq[address] [place], [place] [address]Dr. Kayy Virgen Erythrocyte distribution width (RBC) [Ratio] 13.9 % Normal 11.0-15.0 [facility] Comment on above: Performed By: #### C BC ####[facility] [address]wo[address] [place], [place] [address]Dr. Kayy Virgen Hematocrit (Bld) [Volume fraction] 37.7 % Normal 36.0-48.0 [facility] Comment on above: Performed By: #### C BC ####[facility] [address] [place], [place] [address]Dr. Kayy Virgen Hemoglobin (Bld) [Mass/Vol] 12.3 g/dL Normal 12.0-16.0 [facility] Comment on above: Performed By: #### C BC ####[facility] [address]vkb[address] [place] [id number]. Kayy Virgen IG # 0.02 10e3/ul Normal 0.00-0.03 [facility] Comment on above: Performed By: #### C BC ####[facility] [address]xpucknl[address] [place] [id number]. Kayy Virgen IG % 0.3 % Normal 0.0-0.5 [facility] Comment on above: Performed By: #### C BC ####[facility] Aqubu[address] [place] [address]Dr. Kayy Virgen LYMPH # 1.4 103/ul Normal 1.2-3.8 [facility] Comment on above: Performed By: #### C BC ####[facility] [address]gcri[address] [place] [address]Dr. Shereesamia Virgen Lymphocytes/100 WBC (Bld) 20.8 % Normal 20.5-60.0 [facility] Comment on above: Performed By: #### C BC ####[facility] [address] [place] [address]Dr. Kayy Virgen MANUAL DIFF REQ NO Normal [facility] Comment on above: Performed By: #### C BC ####[facility] [address]umsdc[address] [place] [address]Dr. Kayy Virgen MCH (RBC) [Entitic mass] 26.9 pg Normal 26.7-34.0 [facility] Comment on above: Performed By: #### C BC ####[facility] [address]ucqpsr[address] [place] [address]Dr. Kayy Virgen MCHC (RBC) [Mass/Vol] 32.6 g/dL Normal 29.9-35.2 [facility] Comment on above: Performed By: #### C BC ####[facility] [address]thluht[address] [place] [address]Dr. Kayy Virgen MCV (RBC) [Entitic vol] 82.5 fL Normal 81.0-99.0 [facility] Comment on above: Performed By: #### C BC ####[facility] [address]coexlgw[address] [place] [id number]. Kayy Virgen MONO # 0.6 103/ul Normal 0.3-0.8 [facility] Comment on above: Performed By: #### C BC ####[facility] [address] [place] [address]Dr. Kayy Virgen Monocytes/100 WBC (Bld) 8.8 % Normal 1.7-12.0 [facility] Comment on above: Performed By: #### C BC ####[facility] E[address]crtkejs[address] [place] [address]Dr. Kayy Virgen NEUT # 4.5 103/ul Normal 1.4-6.5 [facility] Comment on above: Performed By: #### C BC ####[facility] [address] [place], [place] [address]Dr. Kayy Virgen Neutrophils/100 WBC (Bld) 68.7 % Normal 43.0-75.0 [facility] Comment on above: Performed By: #### C BC ####[facility] [address] [place], [place] [address]Dr. Kayy Virgen Platelet mean volume (Bld) [Entitic vol] 10.2 fL Normal 9.5-13.5 [facility] Comment on above: Performed By: #### C BC ####[facility] [address] [place], [place] [id number]. Kayy Virgen PLT 265 103/ul Normal 150-450 [facility] Comment on above: Performed By: #### C BC ####[facility] [address] [place], [place] [address]Dr. Kayy Virgen RBC 4.57 106/ul Normal 4.20-5.40 [facility] Comment on above: Performed By: #### C BC ####[facility] [address] [place], [place] [address]Dr. Kayy Virgen WBC 6.5 103/ul Normal 4.0-11.0 [facility] Comment on above: Performed By: #### C BC ####[facility] Unujt[address] [place], [place] [address]Dr. Kayy Virgen CT ABD/PELVIS WO CONon 08-31 CT ABD/PELVIS WO CON EXAMINATION: CT ABD/PELVIS WO CON HISTORY: UNSPECIFIED ABDOMINAL PAIN , acute bilateral lower quadrant pain COMPARISON: No relevant comparison available. TECHNIQUE: Axial, Coronal, and Sagittal images were created without IV contrast. Dose reduction techniques were achieved by using automated exposure control and/or adjustment of mA and/or kV according to patient size and/or use of iterative reconstruction technique. FINDINGS: LUNG BASES: No visible pulmonary or pleural disease. LIVER: No enlargement, atrophy, suspicious density, or significant focal lesion. BILIARY: No dilatation or calcification. PANCREAS: No lesion, fluid collection, or abnormal duct dilatation. SPLEEN: No enlargement or focal lesion. ADRENALS: No mass or enlargement. KIDNEYS: No mass, obstruction, or calcification. BOWEL/MESENTERY: Inflamed, dilated appendix 15 mm in diameter at its base, 8 mm in diameter at tip, with mild surrounding inflammatory changes. No free air or free fluid. No bowel obstruction. AORTA/VASCULAR: No aneurysm or dissection. RETROPERITONEUM: No mass or adenopathy. LYMPH NODES: No adenopathy. URINARY BLADDER: No visible focal wall thickening, lesion, or calculus. PELVIC ORGANS: No visible mass. Pelvic organs appropriate for patient age. ABDOMINAL WALL: Supraumbilical midline fat filled hernia, 4.4 cm in diameter. BONES: L5-S1 moderate degenerative disc disease. No bony lesion or fracture. OTHER: Negative. IMPRESSION: 1. Acute appendicitis 15 mm in diameter with mild-moderate periappendiceal inflammatory changes. Electronically authenticated by: JERONIMO CASTLE Date: 2021-08-31 12:25 Normal [facility] ER URINE PROFILEon 2 Bilirubin Ql (U) Negative Normal NEGATIVE [facility] Comment on above: Performed By: #### E RUR #### [facility] [address], [place] [address] Dr. Kayy Virgen Clarity (U) CLEAR Normal CLEAR [facility] Comment on above: Performed By: #### E RUR #### [facility] [address], [place] [address] Dr. Kayy Virgen Color (U) LT. YELLOW Normal YELLOW [facility] Comment on above: Performed By: #### E RUR #### [facility] [address] [place] [address] [address] Kayy CABRERA A micrscopic examina tion will be performed if indicated. Normal [facility] Comment on above: Performed By: #### E RUR #### [facility] [address] [place] [address] [address] Kayy Virgen Glucose Ql (U) Negative Normal NEGATIVE [facility] Comment on above: Performed By: #### E RUR #### [facility] [address] [place] [address] [address] Kayy Virgen Hemoglobin Ql (U) Negative Normal NEGATIVE [facility] Comment on above: Performed By: #### E RUR #### [facility] [address] [place] [address] Dr. Kayy Virgen Ketones Ql (U) Negative Normal NEGATIVE [facility] Comment on above: Performed By: #### E RUR #### [facility] [address] [place] [address] Dr. Kayy Virgen LEUKOCYTES Negative Normal NEGATIVE [facility] Comment on above: Performed By: #### E RUR #### [facility] [address] [place] [address] [address] Kayy Virgen Nitrite Ql (U) Negative Normal NEGATIVE [facility] Comment on above: Performed By: #### E RUR #### [facility] [address] [place] [address] Dr. Kayy Virgen pH (U) 6.0 [pH] Normal 5-9 [facility] Comment on above: Performed By: #### E RUR #### [facility] [address] [place] [address] Dr. Kayy Virgen SPEC GRAVITY <=1.005 Abnormal 1.005-<=1.025 [facility] Comment on above: Performed By: #### E RUR #### [facility] [address] [place] [address] Dr. Kayy Virgen UA PROTEIN Negative Normal NEGATIVE/ TRACE [facility] Comment on above: Performed By: #### E RUR #### [facility] [address] [place] [address] [address] Kayy Virgen UR MICRO IND NOT INDICATED Normal [facility] Comment on above: Performed By: #### E RUR #### [facility] [address] [place] [address] [address] Kayy Virgen Urobilinogen Qn (U) 0.2 {Cuauhtemoc'U}/dL Normal 0.2 - 1. 0 [facility] Comment on above: Performed By: #### E RUR #### [facility] [address] [place] [address] [address] Kayy Virgen LIPASEon 08-31-2021 Lipase [Catalytic activity/Vol] 73.0 U/L Normal 73.0-393.0 [facility] Comment on above: Performed By: #### A MY, CMP, LIPA #### [facility] [address] [place] [address] Dr. Kayy Virgen PROF 14(COMP METB)on 022 Albumin [Mass/Vol] 3.6 g/dL Normal 3.4-5.0 [facility] Comment on above: Performed By: #### A MY, CMP, LIPA ####[facility] [address] [place] [address]DrIrene Virgen Albumin/Globulin [Mass ratio] 0.9 {ratio} Normal [facility] Comment on above: Performed By: #### A MY, CMP, LIPA ####[facility] [address]ust[address] [place] [address]Dr. Kayy Virgen ALP [Catalytic activity/Vol] 98 U/L Normal 46-116 [facility] Comment on above: Performed By: #### A MY, CMP, LIPA ####[facility] [address] [place] [address]Dr. Kayy Virgen ALT [Catalytic activity/Vol] 22 U/L Normal 14-59 [facility] Comment on above: Performed By: #### A MY, CMP, LIPA ####[facility] [address]uttpusqf[address] [place] [address]DrIrene Virgen Anion gap [Moles/Vol] 12.6 mmol/L Normal [facility] Comment on above: Performed By: #### A MY, CMP, LIPA ####[facility] [address]pzoe[address] [place] [address]Dr. Kayy Virgen AST [Catalytic activity/Vol] 44 U/L Critically high 15-37 [facility] Comment on above: Performed By: #### A MY, CMP, LIPA ####[facility] Gigdmiteed[address] [place], [place] [address]Dr. Kayy Virgen Bilirubin [Mass/Vol] 0.5 mg/dL Normal 0.2-1.0 [facility] Comment on above: Performed By: #### A MY, CMP, LIPA ####[facility] [address] [place], [place] [address]Dr. Kayy Virgen Calcium [Mass/Vol] 9.2 mg/dL Normal 8.5-10.1 [facility] Comment on above: Performed By: #### A MY, CMP, LIPA ####[facility] [address] [place], [place] [address]Dr. Kayy Virgen Chloride [Moles/Vol] 104 mmol/L Normal 98-107 [facility] Comment on above: Performed By: #### A MY, CMP, LIPA ####[facility] [address] [place], [place] [address]Dr. Kayy Virgen CO2 [Moles/Vol] 24.3 mmol/L Normal 21.0-32.0 [facility] Comment on above: Performed By: #### A MY, CMP, LIPA ####[facility] [address] [place], [place] [address]Dr. Kayy Virgen Creatinine [Mass/Vol] 0.87 mg/dL Normal 0.55-1.02 [facility] Comment on above: Performed By: #### A MY, CMP, LIPA ####[facility] [address]brcyc[address] [place] [address]Dr. Kayy Virgen EGFR-AF CAMEROONIAN >60 Normal >=60 [facility] Comment on above: Performed By: #### A MY, CMP, LIPA ####[facility] [address]oj[address] [place] [id number]. Kayy Virgen EGFR-NON AF CAMEROONIAN >60 Normal >=60 [facility] Comment on above: Performed By: #### A MY, CMP, LIPA ####[facility] [address]beltpljik[address] [place] [address]Dr. Kayy Virgen Globulin (S) [Mass/Vol] 4.0 g/dL Normal [facility] Comment on above: Performed By: #### A MY, CMP, LIPA ####[facility] [address]jfcbc[address] [place] [address]Dr. Kayy Virgen Glucose [Mass/Vol] 96 mg/dL Normal 74-106 [facility] Comment on above: Performed By: #### A MY, CMP, LIPA ####[facility] [address]xwvngo[address] [place] [address]Dr. Kayy Virgen Potassium [Moles/Vol] 3.9 mmol/L Normal 3.5-5.1 [facility] Comment on above: Performed By: #### A MY, CMP, LIPA ####[facility] [address]vdbta[address] [place] [address]Dr. Kayy Virgen Protein [Mass/Vol] 7.6 g/dL Normal 6.4-8.2 [facility] Comment on above: Performed By: #### A MY, CMP, LIPA ####[facility] [address]zvix[address] [place] [address]Dr. Kayy Virgen Sodium [Moles/Vol] 137 mmol/L Normal 136-145 [facility] Comment on above: Performed By: #### A MY, CMP, LIPA ####[facility] [address]ffrfzxnl[address] [place] [address]Dr. Kayy Virgen Urea nitrogen [Mass/Vol] 11.0 mg/dL Normal 7.0-18.0 [facility] Comment on above: Performed By: #### A MY, CMP, LIPA ####[facility] [address]br[address] [place] [address]Dr. Kayy Virgen Urea nitrogen/Creatinine [Mass ratio] 12.6 mg/mg Normal [facility] Comment on above: Performed By: #### A MY, CMP, LIPA ####[facility] [address] [place], [place] [address]AwIrene Virgen US THYROID FN ASP BXon 07-05 US THYROID FN ASP BX Begin Addendum #1 COLLECTED DATE/TIME: 06/29/2021 13:56 EDT Final Diagnosis Report for [facility], [place], [place] (A/B) RIGHT THYROID NODULE; FINE NEEDLE ASPIRATION: -BENIGN FOLLICULAR NODULE. 07/05/[address] Valle. Verified with Laura that report was present in office. Original Report EXAMINATION: US THYROID FN ASP BX HISTORY: Thyroid nodule COMPARISON: Ultrasound thyroid 06/21/2021 TECHNIQUE: After obtaining informed consent, ultrasound-guided fine needle aspiration was performed in the usual sterile manner. FINDINGS: IMAGING: Ultrasound. BIOPSY NEEDLE: 21-gauge; 3 separate passes LOCATION: Right thyroid lobe 3.4 cm nodule. SPECIMEN TYPE: Cellular tissue. LOCAL ANESTHETIC: Buffered Xylocaine. COMPLICATIONS: None. LABORATORY: Prepared slide smears and washings for cell block evaluation. OTHER: Negative. PATHOLOGY: Pending. An addendum will be added when results are available. IMPRESSION: 1. Uneventful ultrasound guided fine needle aspiration (FNA). 2. Pathology results are pending. Normal [facility] US THYROIDon 06-21-2021 US THYROID EXAMINATION: US THYR OID HISTORY: Thyroid nodule COMPARISON: None TECHNIQUE: Sonographic images of the thyroid gland were obtained. FINDINGS: The right thyroid lobe is asymmetrically enlarged measuring 4.9 x 2.9 x 2.6 cm. Single focal nodule. Nodule 1: Mid lobe. 3.5 x 2.3 x 2.5 cm. Solid, isoechoic, tall, smooth margins, no calcifications. TR 4 The thyroid isthmus is homogeneous measuring 2.7 mm. No nodule. The left thyroid lobe is normal in size and contour with homogeneous echotexture measuring 5.0 x 1.6 x 1.7 cm. Single focal 5 mm nodule. IMPRESSION: 3.5 cm right thyroid nodule. Fine needle aspiration recommended TI-RADS: [employer] TI-RADS committee's white paper recommendations for thyroid lesions classified as TR4 (moderately suspicious) are listed below: > 1.0 cm. Follow-up ultrasound in 1, 2, 3, and 5 years. > 1.5 cm. FNA. J. Am Anais Radiol 2017;14:587-595. Electronically authenticated by: ENIO MOHAN Date: 2021-06-21 12:10 Normal [facility] US CAROTID ART BILon 03-24-2 022 US CAROTID ART ANDREAS EXAMINATION: US BRAGA TID ART ANDREAS HISTORY: Bilateral carotid artery occlusion ; chronic ringing in left ear COMPARISON: No relevant comparison available. TECHNIQUE: Duplex Doppler ultrasound analysis of carotid and vertebral arteries. . Bilateral carotid arterial duplex examination was performed using B-mode, color flow and spectral analysis. Carotid stenosis is reported according to validated velocity parameters, similar to NASCET criteria. FINDINGS: RIGHT CAROTID ARTERY: No visible stenosis or significant plaque. RIGHT VERTEBRAL: Antegrade flow. Subclavian: PSV: 91.7 cm/s EDV: 0.0 cm/s CCA: Prox: PSV: 93.0 cm/s EDV: 32.2 cm/s Mid: PSV: 73.6 cm/s EDV: 25.7 cm/s Distal: PSV: 94.2 cm/s EDV: 32.2 cm/s BULB: PSV: 63.2 cm/s EDV: 28.3 cm/s ICA: Prox: PSV: 68.4 cm/s EDV: 25.7 cm/s Mid: PSV: 79.9 cm/s EDV: 32.2 cm/s Distal: PSV: 101.1 cm/s EDV: 39.7 cm/s ECA: PSV: 99.5 cm/s EDV: 30.0 cm/s VERTEBRAL: PSV: 40.7 cm/s EDV: 14.5 cm/s ICA/CCA ratio: PSV: 1.1 EDV: 1.2 LEFT CAROTID ARTERY: No visible stenosis or significant plaque. LEFT VERTEBRAL: Antegrade flow. Subclavian: PSV: 143.7 cm/s EDV: 0.0 cm/s CCA: Prox: PSV: 122.4 cm/s EDV: 41.5 cm/s Mid: PSV: 66.1 cm/s EDV: 27.3 cm/s Distal: PSV: 74.2 cm/s EDV: 25.7 cm/s BULB: PSV: 53.2 cm/s EDV: 16.0 cm/s ICA: Prox: PSV: 74.1 cm/s EDV: 27.3 cm/s Mid: PSV: 80.6 cm/s EDV: 30.5 cm/s Distal: PSV: 93.5 cm/s EDV: 32.1 cm/s ECA: PSV: 98.4 cm/s EDV: 28.9 cm/s VERTEBRAL: PSV: 61.2 cm/s EDV: 22.5 cm/s ICA/CCA ratio: PSV: 1.3 EDV: 1.3 Other: Heterogeneous 3.6 cm nodule within right thyroid lobe. IMPRESSION: 1. 0-49% flow stenosis within the right and left carotid arteries. 2. No significant atherosclerotic disease. 3. Noted within the right thyroid lobe is a 3.6 cm heterogeneous nodule. Consider dedicated ultrasound evaluation of the thyroid gland. Spectral Doppler US Thresholds Stenosis (%) PSV (cm/sec) VICA/VCCA 0-49 <150 <2.5 50-69 150-225 2.5-4.0 >70 >225 >4.0 Electronically authenticated by: JERONIMO CASTLE Date: 2021-06-08 13:16 Normal [facility] Blood Occult Stool Screen #1 on 10-13-2019 Date, Stool #1 [id number] [facility] [place] [place] Date, Stool #2 NOT REPORTED [facility] [place] Date, Stool #3 NOT REPORTED [facility] [place] Hemoglobin.gastroin testinal spec 1 Ql (Stl) Negative NEGATIVE [facility] [place] Hemoglobin.gastroin testinal spec 2 Ql (Stl) NOT REPORTED NEGATIVE [facility] [place] Hemoglobin.gastroin testinal spec 3 Ql (Stl) NOT REPORTED NEGATIVE [facility] [place] Time, Stool #1 1200 [facility] [place] Time, Stool #2 NOT REPORTED [facility] [place] Time, Stool #3 NOT REPORTED [facility] [place] Occult Blood, Fecalon 2019 Occult Blood 1 Negative Normal [facility] Comment on above: Performed By: #### O BN #### [facility] [address] [place] [address] Cream Buyer: Eris Worthy MD Specimen [address] [facility] Comment on above: Performed By: #### O BN #### [facility] [address] [place] [address] Cream Buyer: Eris Worthy MD Specimen [address] [facility] Comment on above: Performed By: #### O BN #### [facility] [address] [place] [address] Cream Buyer: Eris Worthy MD Specimen 2 Date NOT REPORTED Normal [facility] Comment on above: Performed By: #### O BN #### [facility] [address] [place] [address] Cream Buyer: Eris Worthy MD Specimen 2 Time NOT REPORTED Normal [facility] Comment on above: Performed By: #### O BN #### [facility] [address] [place], [place] [id number] Cream Buyer: Eris Worthy MD Specimen 3 Date NOT REPORTED Normal [facility] Comment on above: Performed By: #### O BN #### [facility] [address] [place] [address] Cream Buyer: Eris Worthy MD Specimen 3 Time NOT REPORTED Normal [facility] Comment on above: Performed By: #### O BN #### [facility] [address] [place] [address] Cream Buyer: Eris Worthy MD Occult Blood 2 NOT REPORTED Normal NEG [facility] Comment on above: Performed By: #### O BN #### [facility] [address] [place] [address] Cream Buyer: Eris Worthy MD Occult Blood 3 NOT REPORTED Normal NEG [facility] Comment on above: Performed By: #### O BN #### [facility] [address] [place] [address] Cream Buyer: Eris Worthy MD Free Thyroxine Indexon 10-07 FTI Ratio 2.0 ug/dL Normal 1.4-3.1 [facility] Comment on above: Performed By: #### F TI, FE #### [address] [address] Cream Buyer: Otoniel Ash MD #### TSH, LIPR, CP, GLYHGB, CDP #### [address] [place] [address] Cream Buyer: Eris Worthy MD T4 [Mass/Vol] 29.74 % Normal 22.5-37.0 [facility] Comment on above: Performed By: #### F TI, FE #### [address] [address] Cream Buyer: Otoniel Ash MD #### TSH, LIPR, CP, GLYHGB, CDP #### [facility] [address] [place] [address] [place] [address] Cream Buyer: Eris Worthy MD T4 [Mass/Vol] 6.6 ug/dL Normal 4.5-10.9 [facility] Comment on above: Performed By: #### F TI, FE #### [address] [address] Cream Buyer: Otoniel Ash MD #### TSH, LIPR, CP, GLYHGB, CDP #### [facility] [address] [place] [address] [place] [address] Cream Buyer: Eris Worthy MD Ironon 10-08-2019 Iron [Mass/Vol] 73 ug/dL Normal 37-145 [facility] Comment on above: Performed By: #### F TI, FE #### [address] [address] Cream Buyer: Otoniel Ash MD #### TSH, LIPR, CP, GLYHGB, CDP #### [facility] [address] [place] [address] Cream Buyer: Eris Worthy MD T3 uptake and FTIon 10-08-19 Free Thyroxine Index 2 ug/dL 1.4 - 3.1 ug/dL [place] T4 [Mass/Vol] 29.74 % 22.5 - 37 % [place] T4, Total 6.6 ug/dL 4.5 - 10.9 ug/dL [place] CBC Auto Differentialon 09-16-2019 Basophils (Bld) [#/Vol] 0.07 10*3/uL [place] Basophils/100 WBC (Bld) 1 % 0 - 2 % [place] Differential Type NOT REPORTED [place] Eosinophils (Bld) [#/Vol] 0.06 10*3/uL [place] Eosinophils/100 WBC (Bld) 1 % 1 - 4 % [place] Erythrocyte distribution width (RBC) [Ratio] 14.5 % High 11.8 - 14.4 % [place] Hematocrit (Bld) [Volume fraction] 42.4 % 36.3 - 47.1 % [place] Hemoglobin (Bld) [Mass/Vol] 13.2 g/dL 11.9 - 15.1 g/dL [place] Immature granulocytes (Bld) [#/Vol] 10*3/uL [place] Immature granulocytes (Bld) [#/Vol] 0 % 0 [place] Interpretation and review of laboratory results Abnormal [place] Lymphocytes (Bld) [#/Vol] 1.87 10*3/uL [place] Lymphocytes/100 WBC (Bld) 33 % 24 - 43 % [place] MCH (RBC) [Entitic mass] 26.1 pg 25.2 - 33.5 pg [place] MCHC (RBC) [Mass/Vol] 31.1 g/dL 28.4 - 34.8 g/dL [place] MCV (RBC) [Entitic vol] 84.0 fL 82.6 - 102.9 fL [place] Monocytes (Bld) [#/Vol] 0.45 10*3/uL [place] Monocytes/100 WBC (Bld) 8 % 3 - 12 % [place] Platelet mean volume (Bld) [Entitic vol] 10.1 fL 8.1 - 13.5 fL [place] Platelets (Bld) [#/Vol] 270 10*3/uL [place] Platelets (Bld) [#/Vol] NOT REPORTED [place] RBC (Bld) [#/Vol] 5.05 10*6/uL 3.95 - 5.1 1 m/uL [place] RBC morphology finding Nom (Bld) NOT REPORTED [place] Segmented neutrophils/100 WBC (Bld) 57 % 36 - 65 % [place] Segs Absolute 3.17 [place] WBC (Bld) [#/Vol] 5.6 10*3/uL [place] WBC (Bld) [#/Vol] 0.0 10*3/uL 0.0 per 10 0 WBC [place] WBC Morphology NOT REPORTED [place] CBC with Diffon 10-07-2019 Abs. Basophil 0.07 k/uL Normal 0.00-0.20 [facility] Comment on above: Performed By: #### F TI, FE #### [facility] [address] [place] [address] Cream Buyer: Otoniel Ash MD #### TSH, LIPR, CP, GLYHGB, CDP #### [facility] [address] [place] [address] Cream Buyer: Ersi Worthy MD Abs.Imm.Granulocyte <0.03 Normal 0.00-0.30 [facility] Comment on above: Performed By: #### F TI, FE #### [address] [id number] Cream Buyer: Otoniel Ash MD #### TSH, LIPR, CP, GLYHGB, CDP #### [facility] [address] [place] [address] Dr. [place] [id number] Cream Buyer: Eris Worthy MD Abs.Neutrophil (Seg) 3.17 k/uL Normal 1.50-8.10 [facility] Comment on above: Performed By: #### F TI, FE #### [address] [address] Cream Buyer: Otoniel Ash MD #### TSH, LIPR, CP, GLYHGB, CDP #### [address] [place] [phone] Cream Buyer: Eris Worthy MD Basophils/100 WBC (Bld) 1 % Normal 0-2 [facility] Comment on above: Performed By: #### F TI, FE #### [address] [address] Cream Buyer: Otoniel Ash MD #### TSH, LIPR, CP, GLYHGB, CDP #### [address] [place] [phone] Cream Buyer: Eris Worthy MD Eosinophils (Bld) [#/Vol] 0.06 10*3/uL Normal 0.00-0.44 [facility] Comment on above: Performed By: #### F TI, FE #### [address] [id number] Cream Buyer: Otoniel Ash MD #### TSH, LIPR, CP, GLYHGB, CDP #### [facility] [address] [place] [address] Dr. [place] [id number] Cream Buyer: Eris Worthy MD Eosinophils/100 WBC (Bld) 1 % Normal 1-4 [facility] Comment on above: Performed By: #### F TI, FE #### [address] [address] Cream Buyer: Otoniel Ash MD #### TSH, LIPR, CP, GLYHGB, CDP #### [facility] [address] [place] [address] Dr. [place] [id number] Cream Buyer: Eris Worthy MD Erythrocyte distribution width (RBC) [Ratio] 14.5 % High 11.8-14.4 [facility] Comment on above: Performed By: #### F TI, FE #### [address] [address] Cream Buyer: Otoniel Ash MD #### TSH, LIPR, CP, GLYHGB, CDP #### [address] [place] [phone] Cream Buyer: Eris Wrothy MD Hematocrit (Bld) [Volume fraction] 42.4 % Normal 36.3-47.1 [facility] Comment on above: Performed By: #### F TI, FE #### [address] [address] Cream Buyer: Otoniel Ash MD #### TSH, LIPR, CP, GLYHGB, CDP #### [address] [place] [phone] Cream Buyer: Eris Worthy MD Hemoglobin (Bld) [Mass/Vol] 13.2 g/dL Normal 11.9-15.1 [facility] Comment on above: Performed By: #### F TI, FE #### [address] [id number] Cream Buyer: Otoniel Ash MD #### TSH, LIPR, CP, GLYHGB, CDP #### [address] [place] [phone] Cream Buyer: Eris Worthy MD Immature granulocytes (Bld) [#/Vol] 0 % Normal 0 [facility] Comment on above: Performed By: #### F TI, FE #### [address] [address] Cream Buyer: Otoniel Ash MD #### TSH, LIPR, CP, GLYHGB, CDP #### [address] [place] [phone] Cream Buyer: Eris Worthy MD Lymphocytes (Bld) [#/Vol] 1.87 10*3/uL Normal 1.10-3.70 [facility] Comment on above: Performed By: #### F TI, FE #### [place] [address] Cream Buyer: Otoniel Ash MD #### TSH, LIPR, CP, GLYHGB, CDP #### [address] [place] [phone] Cream Buyer: Eris Worthy MD Lymphocytes/100 WBC (Bld) 33 % Normal 24-43 [facility] Comment on above: Performed By: #### F TI, FE #### [place] [address] Cream Buyer: Otoniel Ash MD #### TSH, LIPR, CP, GLYHGB, CDP #### [address] [place] [phone] Cream Buyer: Eris Worthy MD MCH (RBC) [Entitic mass] 26.1 pg Normal 25.2-33.5 [facility] Comment on above: Performed By: #### F TI, FE #### [place] [address] Cream Buyer: Otoniel Ash MD #### TSH, LIPR, CP, GLYHGB, CDP #### [address] [place] [phone] Cream Buyer: Eris Worthy MD MCHC (RBC) [Mass/Vol] 31.1 g/dL Normal 28.4-34.8 [facility] Comment on above: Performed By: #### F TI, FE #### [address] [phone] Cream Buyer: Otoniel Ash MD #### TSH, LIPR, CP, GLYHGB, CDP #### [address] [place] [phone] Cream Buyer: Eris Worthy MD MCV (RBC) [Entitic vol] 84.0 fL Normal 82.6-102.9 [facility] Comment on above: Performed By: #### F TI, FE #### [place] [id number] Cream Buyer: Otoniel Ash MD #### TSH, LIPR, CP, GLYHGB, CDP #### [address] [place] [phone] Cream Buyer: Eris Worthy MD Monocytes (Bld) [#/Vol] 0.45 10*3/uL Normal 0.10-1.20 [facility] Comment on above: Performed By: #### F TI, FE #### [address] [id number] Cream Buyer: Otoniel Ash MD #### TSH, LIPR, CP, GLYHGB, CDP #### [address] [place] [phone] Cream Buyer: Eris Worthy MD Monocytes/100 WBC (Bld) 8 % Normal 3-12 [facility] Comment on above: Performed By: #### F TI, FE #### [address] [phone] Cream Buyer: Otoniel Ash MD #### TSH, LIPR, CP, GLYHGB, CDP #### [facility] [address] [place] [address] [place], [place] [phone] Cream Buyer: Eris Worthy MD Neutrophil (Seg) 57 % Normal 36-65 [facility] Comment on above: Performed By: #### F TI, FE #### [address] [address] Cream Buyer: Otoniel Ash MD #### TSH, LIPR, CP, GLYHGB, CDP #### [facility] [address] [place] [address] [place], [place] [phone] Cream Buyer: Eris Worthy MD NRBC Automated 0.0 per 100 WBC Normal 0.0 [facility] Comment on above: Performed By: #### F TI, FE #### [address] [id number] Cream Buyer: Otoniel Ash MD #### TSH, LIPR, CP, GLYHGB, CDP #### [facility] [address] [place] [address] [place] [phone] Cream Buyer: Eris Worthy MD Platelet mean volume (Bld) [Entitic vol] 10.1 fL Normal 8.1-13.5 [facility] Comment on above: Performed By: #### F TI, FE #### [address] [address] Cream Buyer: Otoniel Ash MD #### TSH, LIPR, CP, GLYHGB, CDP #### [address] [place], [place] [phone] Cream Buyer: Eris Worthy MD Platelets (Bld) [#/Vol] 270 10*3/uL Normal 138-453 [facility] Comment on above: Performed By: #### F TI, FE #### [address] [id number] Cream Buyer: Otoniel Ash MD #### TSH, LIPR, CP, GLYHGB, CDP #### [address] [place] [phone] Cream Buyer: Eris Worthy MD RBC (Bld) [#/Vol] 5.05 10*6/uL Normal 3.95-5.11 [facility] Comment on above: Performed By: #### F TI, FE #### [address] [address] Cream Buyer: Otoniel Ash MD #### TSH, LIPR, CP, GLYHGB, CDP #### [address] [place] [phone] ( Cream Buyer: Eris Worthy MD WBC (Bld) [#/Vol] 5.6 10*3/uL Normal 3.5-11.3 [facility] Comment on above: Performed By: #### F TI, FE #### [address] [address] Cream Buyer: Otoniel Ash MD #### TSH, LIPR, CP, GLYHGB, CDP #### [address] [place] [phone] Cream Buyer: Eris Worthy MD Auto Diff Performed NOT REPORTED Normal [facility] Comment on above: Performed By: #### F TI, FE #### [address] [address] Cream Buyer: Otoniel Ash MD #### TSH, LIPR, CP, GLYHGB, CDP #### [address] [place] [phone] Cream Buyer: Eris Worthy MD Platelets (Bld) [#/Vol] NOT REPORTED Normal [facility] Comment on above: Performed By: #### F TI, FE #### [address] [address] Cream Buyer: Otoniel Ash MD #### TSH, LIPR, CP, GLYHGB, CDP #### [facility] [address] [place] [address] Cream Buyer: Eris Worthy MD RBC morphology finding Nom (Bld) NOT REPORTED Normal [facility] Comment on above: Performed By: #### F TI, FE #### [address] [phone] Cream Buyer: Otoniel Ash MD #### TSH, LIPR, CP, GLYHGB, CDP #### [facility] [address] [place] [address] Cream Buyer: Eris Worthy MD WBC Morphology NOT REPORTED Normal [facility] Comment on above: Performed By: #### F TI, FE #### [address] [phone] Cream Buyer: Otoniel Ash MD #### TSH, LIPR, CP, GLYHGB, CDP #### [address] [place] [address] Cream Buyer: Eris Worthy MD Comp Metabolic Profon 2019 (cont.) [facility] Comment on above: Result Comment: Aver age GFR for 60-69 years old: 85 mL/min/1.73sq m Chronic Kidney Disease: <60 mL/min/1.73sq m Kidney failure: <15 mL/min/1.73sq m eGFR calculated using average adult body mass. Additional eGFR calculator available at: http://www.Youca.st.com/multiple_crcl_2012.htm Performed By: #### F TI, FE #### [address] [id number] Cream Buyer: Otoniel Ash MD #### TSH, LIPR, CP, GLYHGB, CDP #### [address] [place] [address] Cream Buyer: Eris Worthy MD Albumin [Mass/Vol] 4.5 g/dL Normal 3.5-5.2 [facility] Comment on above: Performed By: #### F TI, FE #### [address] [id number] Cream Buyer: Otoniel Ash MD #### TSH, LIPR, CP, GLYHGB, CDP #### [address] [place] [phone] Cream Buyer: Eris Worthy MD Albumin/Globulin [Mass ratio] 1.4 {ratio} Normal 1.0-2.5 [facility] Comment on above: Performed By: #### F TI, FE #### [address] [id number] Cream Buyer: Otoniel Ash MD #### TSH, LIPR, CP, GLYHGB, CDP #### [address] [place] [phone] Cream Buyer: Eris Worthy MD Alkaline Phos 94 U/L Normal 35-104 [facility] Comment on above: Performed By: #### F TI, FE #### [address] [phone] Cream Buyer: Otoniel Ash MD #### TSH, LIPR, CP, GLYHGB, CDP #### [address] [place] [phone] Cream Buyer: Eris Worthy MD ALT [Catalytic activity/Vol] 10 U/L Normal 5-33 [facility] Comment on above: Performed By: #### F TI, FE #### [address] [phone] Cream Buyer: Otoniel Ash MD #### TSH, LIPR, CP, GLYHGB, CDP #### [address] [place], [place] [phone] Cream Buyer: Eris Worthy MD Anion gap [Moles/Vol] 12 mmol/L Normal 9-17 [facility] Comment on above: Performed By: #### F TI, FE #### [address] [phone] Cream Buyer: Otoniel Ash MD #### TSH, LIPR, CP, GLYHGB, CDP #### [address] [place], [place] [phone] Cream Buyer: Eris Worthy MD AST [Catalytic activity/Vol] 40 U/L High <32 [facility] Comment on above: Performed By: #### F TI, FE #### [address] [phone] Cream Buyer: Otoniel Ash MD #### TSH, LIPR, CP, GLYHGB, CDP #### [address] [place], [place] [phone] Cream Buyer: Eris Worthy MD Bilirubin Ql (U) 0.27 mg/dL Low 0.3-1.2 [facility] Comment on above: Performed By: #### F TI, FE #### [address] [id number] Cream Buyer: Otoniel Ash MD #### TSH, LIPR, CP, GLYHGB, CDP #### [address] [place] [address] Cream Buyer: Eris Worthy MD BUN/CRE Ratio 22 High 9-20 [facility] Comment on above: Performed By: #### F TI, FE #### [address] [id number] Cream Buyer: Otoniel Ash MD #### TSH, LIPR, CP, GLYHGB, CDP #### [address] [place] [address] Cream Buyer: Eris Worthy MD Calcium [Mass/Vol] 10.0 mg/dL Normal 8.6-10.4 [facility] Comment on above: Performed By: #### F TI, FE #### [address] [id number] Cream Buyer: Otoniel Ash MD #### TSH, LIPR, CP, GLYHGB, CDP #### [address] [place] [address] Cream Buyer: Eris Worthy MD Chloride [Moles/Vol] 105 mmol/L Normal 98-107 [facility] Comment on above: Performed By: #### F TI, FE #### [address] [phone] Cream Buyer: Otoniel Ash MD #### TSH, LIPR, CP, GLYHGB, CDP #### [address] [place] [address] Cream Buyer: Eris Worthy MD CO2 [Moles/Vol] 21 mmol/L Normal 20-31 [facility] Comment on above: Performed By: #### F TI, FE #### [address] [id number] Cream Buyer: Otoniel Ash MD #### TSH, LIPR, CP, GLYHGB, CDP #### [address] [place] [address] Cream Buyer: Eris Worthy MD Creatinine [Mass/Vol] 0.79 mg/dL Normal 0.50-0.90 [facility] Comment on above: Performed By: #### F TI, FE #### [address] [id number] Cream Buyer: Otoniel Ash MD #### TSH, LIPR, CP, GLYHGB, CDP #### [address] [place], [place] [phone] Cream Buyer: Eris Worthy MD GFR, Amer >60 Normal >60 [facility] Comment on above: Performed By: #### F TI, FE #### [place] [address]37732 [place], [place] [phone] Cream Buyer: Otoniel Ash MD #### TSH, LIPR, CP, GLYHGB, CDP #### [address] [place] [address] Cream Buyer: Eris Worthy MD GFR,non Amer >60 Normal >60 [facility] Comment on above: Performed By: #### F TI, FE #### [address] [phone] Cream Buyer: Otoniel Ash MD #### TSH, LIPR, CP, GLYHGB, CDP #### [address] [place] [address] Cream Buyer: Eris Worthy MD Glucose [Mass/Vol] 99 mg/dL Normal 70-99 [facility] Comment on above: Performed By: #### F TI, FE #### [address] [id number] Cream Buyer: Otoniel Ash MD #### TSH, LIPR, CP, GLYHGB, CDP #### [address] [place], [place] [phone] Cream Buyer: Eris Worthy MD Potassium [Moles/Vol] 4.1 mmol/L Normal 3.7-5.3 [facility] Comment on above: Performed By: #### F TI, FE #### [address] [phone] Cream Buyer: Otoniel Ash MD #### TSH, LIPR, CP, GLYHGB, CDP #### [address] [place] [address] Cream Buyer: Eris Worthy MD Protein [Mass/Vol] 7.7 g/dL Normal 6.4-8.3 [facility] Comment on above: Performed By: #### F TI, FE #### [address] [id number] Cream Buyer: Otoniel Ash MD #### TSH, LIPR, CP, GLYHGB, CDP #### [address] [place] [address] Cream Buyer: Eris Worthy MD Sodium [Moles/Vol] 138 mmol/L Normal 135-144 [facility] Comment on above: Performed By: #### F TI, FE #### [address] [id number] Cream Buyer: Otoniel Ash MD #### TSH, LIPR, CP, GLYHGB, CDP #### [address] [place] [address] Cream Buyer: Eris Worthy MD Staging: Normal [facility] Comment on above: Result Comment: Stag e 1: Some kidney damage normal GFR Stage 2: Mild kidney damage GFR 60-89 Stage 3: Moderate kidney damage GFR 30-59 Stage 4: Severe kidney damage GFR 15-29 Stage 5: Severe kidney damage GFR <15 ESRD - chronic treatment by dialysis or transplant Performed By: #### F TI, FE #### [address] [id number] Cream Buyer: Otoniel Ash MD #### TSH, LIPR, CP, GLYHGB, CDP #### [address] [place] [address] Cream Buyer: Eris Worthy MD Urea nitrogen [Mass/Vol] 17 mg/dL Normal 8-23 [facility] Comment on above: Performed By: #### F TI, FE #### [address], [place] [id number] Cream Buyer: Otoniel Ash MD #### TSH, LIPR, CP, GLYHGB, CDP #### [facility] [address] [place] [address] Cream Buyer: Eris Worthy MD Comprehensive Metabolic Pane romy 10-07-2019 Albumin [Mass/Vol] 4.5 g/dL 3.5 - 5.2 g/dL [place], [place] Albumin/Globulin [Mass ratio] 1.4 {ratio} [place] ALP [Catalytic activity/Vol] 94 U/L 35 - 104 U/L [place] ALT [Catalytic activity/Vol] 10 U/L 5 - 33 U/L [place] Anion gap [Moles/Vol] 12 mmol/L 9 - 17 mmol/L [place] AST [Catalytic activity/Vol] 40 U/L High <32 [place] Bilirubin Ql (U) 0.27 mg/dL Low 0.3 - 1.2 mg/dL [place] Bun/Cre Ratio 22 [place] Calcium [Mass/Vol] 10.0 mg/dL 8.6 - 10. 4 mg/dL [place] Chloride [Moles/Vol] 105 mmol/L 98 - 107 mmol/L [place] CO2 [Moles/Vol] 21 mmol/L 20 - 31 mmol/L [place] Creatinine [Mass/Vol] 0.79 mg/dL 0.5 - 0.9 mg/dL [place] GFR >60 >60 mL/min [place] GFR Non- >60 >60 mL/min [place] Glucose [Mass/Vol] 99 mg/dL 70 - 99 mg/dL [place] Potassium [Moles/Vol] 4.1 mmol/L 3.7 - 5.3 mmol/L [place] Protein [Mass/Vol] 7.7 g/dL 6.4 - 8.3 g/dL [place] Sodium [Moles/Vol] 138 mmol/L 135 - 144 mmol/L [place] Urea nitrogen [Mass/Vol] 17 mg/dL 8 - 23 mg/dL [place] Hemoglobin A1Con 10-07-2019 HbA1c (Bld) [Mass fraction] 5.3 % Normal 4.8-5.9 [facility] Comment on above: Performed By: #### F TI, FE #### [facility] [address] [place] [address] Cream Buyer: Otoniel Ash MD #### TSH, LIPR, CP, GLYHGB, CDP #### [facility] [address] [place] [address] Cream Buyer: Eris Worthy MD HbA1c (Bld) [Mass fraction] 105 mg/dL Normal [facility] Comment on above: Result Comment: The ADA and AACC recommend providing the estimated average glucose result to permit better patient understanding of their HBA1c result. Performed By: #### F TI, FE #### [facility] [address] [place] [address] Cream Buyer: Otoniel Ash MD #### TSH, LIPR, CP, GLYHGB, CDP #### [facility] [address] [place] [address] Cream Buyer: Eris Worthy MD Glucose [Mass/Vol] 105 mg/dL [place] Comment on above: The ADA and AACC rec ommend providing the estimated average glucose result to permit better patient understanding of their HBA1c result. HbA1c (Bld) [Mass fraction] 5.3 % 4.8 - 5.9 % [place] Ironon 10-07-2019 Iron [Mass/Vol] 73 ug/dL 37 - 145 ug/dL [place] Lipid Panelon 10-07-2019 Cholesterol [Mass/Vol] 229 mg/dL High <200 [place] Comment on above: Cholesterol Guidelines: <200 Desirable 200-240 Borderline >240 Undesirable Cholesterol in HDL [Mass/Vol] 67 mg/dL >40 [place] Comment on above: HDL Guidelines: <40 Undesirable 40-59 Borderline >59 Desirable Cholesterol in LDL [Mass/Vol] 127 mg/dL 0 - 130 mg/dL [place] Comment on above: LDL Guidelines: <100 Desirable 100-129 Near to/above Desirable 130-159 Borderline >159 Undesirable Direct (measured) LDL and calculated LDL are not interchangeable tests. Cholesterol in VLDL [Mass/Vol] NOT REPORTED High 1 - 30 mg/dL [place] Cholesterol.total/C holesterol in HDL [Mass ratio] 3.4 {ratio} <5 [place] Triglyceride [Mass/Vol] 175 mg/dL High <150 [place] Comment on above: Triglyceride Guidelines: <150 Desirable 150-199 Borderline 200-499 High >499 Very high Based on AHA Guidelines for fasting triglyceride, December 2011. Lipid Profileon 10-07-2019 Cholesterol [Mass/Vol] 229 mg/dL High <200 [facility] Comment on above: Result Comment: Cholesterol Guidelines: <200 Desirable 200-240 Borderline >240 Undesirable Performed By: #### F TI, FE #### [address] [address] Cream Buyer: Otoniel Ash MD #### TSH, LIPR, CP, GLYHGB, CDP #### [facility] [address] [place] [address] Cream Buyer: Eris Worthy MD Cholesterol in HDL [Mass/Vol] 67 mg/dL Normal >40 [facility] Comment on above: Result Comment: HDL Guidelines: <40 Undesirable 40-59 Borderline >59 Desirable Performed By: #### F TI, FE #### [place] [id number] [place], [place] [id number] Cream Buyer: Otoniel Ash MD #### TSH, LIPR, CP, GLYHGB, CDP #### [facility] [address] [place] [address] Cream Buyer: Eris Worthy MD Cholesterol in LDL [Mass/Vol] 127 mg/dL Normal 0-130 [facility] Comment on above: Result Comment: LDL Guidelines: <100 Desirable 100-129 Near to/above Desirable 130-159 Borderline >159 Undesirable Direct (measured) LDL and calculated LDL are not interchangeable tests. Performed By: #### F TI, FE #### [address] [address] Cream Buyer: Otoniel Ash MD #### TSH, LIPR, CP, GLYHGB, CDP #### [facility] [address] [place] [address] [place] [place], [place] [id number] Cream Buyer: Eris Worthy MD Cholesterol.total/C holesterol in HDL [Mass ratio] 3.4 {ratio} Normal <5 [facility] Comment on above: Performed By: #### F TI, FE #### [address] [address] Cream Buyer: Otoniel Ash MD #### TSH, LIPR, CP, GLYHGB, CDP #### [address] [place] [id number] Cream Buyer: Eris Worthy MD Triglyceride [Mass/Vol] 175 mg/dL High <150 [facility] Comment on above: Result Comment: Triglyceride Guidelines: <150 Desirable 150-199 Borderline 200-499 High >499 Very high Based on AHA Guidelines for fasting triglyceride, December 2011. Performed By: #### F HUMBERTO, FE #### [address] [address] Cream Buyer: Otoniel Ash MD #### TSH, LIPR, CP, GLYHGB, CDP #### [address] [place], [place] [id number] Cream Buyer: Eris Worthy MD Cholesterol in VLDL [Mass/Vol] NOT REPORTED Normal 1-30 [facility] Comment on above: Performed By: #### F TI, FE #### [address] [address] Cream Buyer: Otoniel Ash MD #### TSH, LIPR, CP, GLYHGB, CDP #### [facility] [address] [place] [address] Cream Buyer: Eris Worthy MD Metabolic Panelon 10-07-2019 GFR/1.73 sq M predicted among non-blacks MDRD (S/P/Bld) [Vol rate/Area] [place] Comment on above: Stage 1: Some kidney damage normal GFR Stage 2: Mild kidney damage GFR 60-89 Stage 3: Moderate kidney damage GFR 30-59 Stage 4: Severe kidney damage GFR 15-29 Stage 5: Severe kidney damage GFR <15 ESRD - chronic treatment by dialysis or transplant Average GFR for 60-6 9 years old: 85 mL/min/1.73sq m Chronic Kidney Disease: <60 mL/min/1.73sq m Kidney failure: <15 mL/min/1.73sq m eGFR calculated using average adult body mass. Additional eGFR calculator available at: http://www.[employer]/multiple_crcl_2012.htm Otheron 10-07-2019 Interpretation and review of laboratory results Abnormal [place] TSH without Reflexon 020 TSH Qn 1.12 m[IU]/L [place], [place] Thyroid Stim. Horm.on 2019 TSH Qn 1.12 m[IU]/L Normal 0.30-5.00 [facility] Comment on above: Performed By: #### F TI, FE #### [facility] [address] [place] [address] Cream Buyer: Otoniel Ash MD #### TSH, LIPR, CP, GLYHGB, CDP #### [facility] [address] [place] [address] Cream Buyer: Eris Worthy MD Operative Reporton 8 Operative Report MR#: [id number] [facility] Pt. Name: Xena Ewing Room #: 0C Discharge Date: Birthdate: 1955 OPERATIVE REPORTDATE OF SURGERY: 03/17/2018SURGEON: Bart Holcomb M.D.PIPE MANUFACTURE SUPERVISOR: Carlton Galicia M.D.PREOPERATIVE DIAGNOSIS: Right recurrent de Quervain's tenosynovitis.POSTOPERAT LEEANN DIAGNOSIS: Right recurrent de Quervain's tenosynovitis.PROCEDURE PERFORMED: Revision release of right de Quervain'stenosynovitis. INTRAOPERATIVE FINDINGS: Some scarring around the tendon proximally with asignificant sub-sheath around extensor pollicis brevis.CLINICAL SUMMARY: The patient is a 62-year-old female who previouslyunderwent de Quervain's tenosynovitis at an outside facility. The patientcontinued to have symptoms in that region and subsequently sent to us forfurther evaluation and treatment. Diagnosis of recurrent de Quervain'stenosynovitis was made; therefore, we offered the patient extensorcompartment release of the 1st extensor compartment.OPERATIVE DETAILS: The patient was met in the preoperative holding areawhere informed consent was obtained. Surgical site was marked. Thepatient was wheeled back to the operating room where MAC anesthesia wasinduced and her right upper extremity was prepped and draped in normalsterile fashion. Time-out was performed to verify the patient, procedure,and laterality. No intraoperative antibiotics were necessary noradministered. We began the procedure by marking out an incision over theprevious transverse incision just proximal to the radial styloid at theregion of the 1st extensor compartment. We then infiltrated localanesthetic, then made a transverse incision, taking care to dissect slowlyto visualize the superficial radial nerve. We subsequently encountered theabductor pollicis longus tendon. It was somewhat scarred, but for the mostpart, released. Its range of motion demonstrated no subluxation volarly.We then explored further dorsally and found the extensor pollicis brevis,tendon did remain within a sheath that was significantly hypertrophied andstenotic. We then completely released this until the tendon was glidingfreely without subluxation. We then irrigated the wound with normalsaline and subsequently closed the wound with 4-0 Biosyn. The patienttolerated the procedure well. There were no complications. The patientwill be nonweightbearing to the right upper extremity. We will see thepatient back in 10 to [address] suture removal[address] Holcomb was presentfor all critical aspects of the procedure and was otherwise immediatelyavailable for assistance.Electronicall y Signed by:Bart Holcomb M.D. 03/17/2018 04:51 P Bart Holcomb M.D. I was present for the entire procedure. Date Dict: 03/17/2018/10:00 A/EMETERIO Andinoate Trans: 03/17/2018 11:55 [id number] cc: Anamika Valle M.D. [address] [facility] [address] Normal [facility] POC GLUCOSE LABon 03-17-2018 Glucose mass conc 89 mg/dL Normal 70-100 [facility] Comment on above: Performed By: #### 8 [address] ####[place] [address] Vital Signs Date Time Vital Sign Value Performing Clinician Jazmini adelina 10-23-2022 11:130400 Body height 165.1 cm Claire Morales MD Work Phone: [facility] 10-23-2022 11:13040 Body weight 73.07 kg Claire Morales MD Work Phone: [facility] 10-23-2022 11:13-0400 Diastolic blood pressure 71 mm[Hg] Claire Morales MD Work Phone: [facility] 10-23-2022 11:130400 Heart rate 77 /min Claire Morales MD Work Phone: [facility] 10-23-2022 11:13-0400 Systolic blood pressure 125 mm[Hg] Claire Morales MD Work Phone: [facility] Encounters Encounter Date Encounter Type Care Provider Facility Start: 05-09-2023 End: 05-09-2023 ambulatory MONIE NAVARRO Not Available Start: 03-28-2023 End: 03-28-2023 ambulatory MONIE Harrington JONNANTADAM Not Available Start: 01-30-2023 End: 01-30-2023 ambulatory MONIE Harrington JONNANTADAM Not Available Start: 12-24-2022 End: 12-24-2022 ambulatory Anamika Valle Facility:[facility] Start: 12-24-2022 End: 12-24-2022 ambulatory MD Anamika Valle Work Phone: [facility] Work Phone: Start: 12-24-2022 End: 12-24-2022 Patient encounter procedure MD Anamika aVlle Work Phone: [facility] Work Phone: Start: 10-23-2022 End: 10-24-2022 ambulatory ANAMIKA VALLE Facility:[facility] Start: 10-23-2022 End: 10-23-2022 Patient encounter procedure Claire Morales MD Work Phone: General Surgery Comment on above: Ventral hernia witho ut obstruction or gangrene (Primary Dx) Start: 09-14-2022 ambulatory Rubén MANUEL Facility : [facility] Start: 04-19-2022 End: 04-19-2022 ambulatory DESTINI DOOLEY Facility:[facility] Start: 01-05-2022 End: 01-06-[address] ANAMIKA VALLE Facility:[facility] Start: 12-21-2021 End: 12-21-2021 ambulatory MD Anamika Valle Work Phone: [facility] Work Phone: Start: 12-21-2021 End: 12-21-2021 Patient encounter procedure MD Anamika Valle Work Phone: [facility] Start: 11-09-2021 End: 11-10-[address] ANAMIKA VALLE Facility:[facility] Start: 08-31-2021 End: 08-31-[address] ANAMIKA VALLE Facility:[facility] Start: 06-29-2021 End: 06-29-[address] ANAMIKA VALLE Facility:[facility] Start: 06-21-2021 End: 06-22-[address] ANAMIKA VALLE Facility:[facility] Start: 06-08-2021 End: 06-09-[address] ANAMIKA VALLE Facility:[facility] Start: 10-13-2019 End: 10-14-2019 Patient encounter procedure ANAMIKA VALLE [facility] Start: 10-13-2019 End: 10-13-2019 Subsequent hospital visit by physician Anamika Valle [facility] Start: 10-07-2019 End: 10-08-2019 Patient encounter procedure ANAIMKA Irwin Babar [facility] Start: 10-07-2019 End: 10-07-2019 Subsequent hospital visit by physician [facility] Drawing Room [facility] Comment on above: Arrived Start: 03-17-2018 End: 03-18-2018 Patient encounter procedure GIOVANI HOLCOMB Facility:[facility] Start: 02-14-2018 End: 02-15-2018 Patient encounter procedure DEFAULT PHYSICIAN Facility:[facility] Procedures Date Procedure Procedure Detail Performing Clinician Start: 12-24-2022 Screening mammograph y of bilateral breasts MD Anamika Valle Work Phone: Start: 12-21-2021 Screening mammograph y of bilateral breasts MD Anamika Valle Work Phone: Start: 10-13-2019 Virus centrifuge enh ncd id imfluor stain ea ANAMIKA VALLE Start: 10-13-2019 BLOOD OCCULT STOOL S CREEN #1 Anamika Valle Work Phone: Start: 10-07-2019 Assay of iron ANAMIKA H OY Start: 10-07-2019 Assay of thyroid stimulating hormone tsh ANAMIKA HOY Start: 10-07-2019 Blood count complete auto&auto difrntl wbc ANAMIKA HOY Start: 10-07-2019 Comprehensive metabo lic panel ANAMIKA HOY Start: 10-07-2019 Hemoglobin glycosylated a1c ANAMIKA HOY Start: 10-07-2019 Lipid panel ANAMIKA HO Y Start: 10-07-2019 Thyroid horm uptk/th yroid hormone binding ratio ANAMIKA HOY Start: 10-07-2019 Assay of iron Anamika M Tori Work Phone: Start: 10-07-2019 Assay of thyroid stimulating hormone tsh Anamika Valle Work Phone: Start: 10-07-2019 Blood count complete auto&auto difrntl wbc Anamika Valle Work Phone: Start: 10-07-2019 Comprehensive metabo lic panel Anamika Valle Work Phone: Start: 10-07-2019 Hemoglobin glycosylated a1c Anamika Valle Work Phone: Start: 10-07-2019 Lipid panel Anamika Valle Work Phone: Start: 10-07-2019 Thyroid horm uptk/th yroid hormone binding ratio Anamika Valle Work Phone: Start: 03-17-2018 ANESTH LOWER ARM SURGERY [facility] Start: 03-17-2018 INCISION OF TENDON SHEATH ABDULAZIM JI Plan of Treatment Date Care Activity Detail Author Start: 06-01-2028 DTaP/Tdap/Td vaccine (2 - Td) DTaP/Tdap/Td vaccine (2 - Td) [place] Start: 10-06-2024 Lipid panel Lipid screen [place] Start: 11-16-2022 Influenza vaccination INFLUENZA (#1) [facility] Start: 04-21-2022 COVID-19 VACCINE (5 - Pfizer series) COVID-19 VACCINE (5 - Pfizer series) [facility] Start: 03-18-2022 ADVANCE DIRECTIVE DISCUSSION ADVANCE DIRECTIVE DISCUSSION [facility] Start: 03-18-2022 DEPRESSION ASSESSMENT DEPRESSION ASSESSMENT [facility] Start: 2021 BONE DENSITY BONE DENSITY [facility] Start: 11-17-2019 Influenza vaccination Flu vaccine (#1) [place] Start: 2006 Influenza vaccination LUNG CANCER SCREENING [facility] Start: 2006 Screening for malignant neoplasm of breast Breast cancer screen [place], [place] Start: 2006 Screening for malignant neoplasm of colon Colon cancer screen colonoscopy [place] Start: 2006 Shingles Vaccine (1 of 2) Shingles Vaccine (1 of 2) [place] Start: 2006 SHINGRIX VACCINE (1 of 2) SHINGRIX VACCINE (1 of 2) [facility] Start: 2001 COLOGUARD (FIT-DNA) COLOGUARD (FIT-DNA) [facility] Start: 2001 Colonoscopy COLONOSCOPY [facility] Start: 2001 COLORECTAL CANCER SCREENING COLORECTAL CANCER SCREENING [facility] Start: [address] COLONOGRAPHY [facility] Start: 2001 DIABETES SCREEN DIABETES SCREEN [facility] Start: 2001 FECAL OCCULT BLOOD FECAL OCCULT BLOOD [facility] Start: 2001 LIPID SCREEN LIPID SCREEN [facility] Start: 2001 SIGMOIDOSCOPY SIGMOIDOSCOPY [facility] Start: 1996 Lipid panel Lipid screen [place] Start: 1996 Mammography MAMMOGRAM [facility] Start: 1977 Screening for malignant neoplasm of cervix Cervical cancer screen [place] Start: 12-12-1975 Urine microalbumin profile DTAP,TDAP,TD (1 - Tdap) [facility] Start: 1974 HEPATITIS C SCREENING HEPATITIS C SCREENING [facility] Start: 1974 HIV SCREENING HIV SCREENING [facility] Start: 12-12-1971 HIV screening HIV screen [place] Start: 1962 PNEUMOCOCCAL: 65+ (1 - PCV) PNEUMOCOCCAL: 65+ (1 - PCV) [facility] Start: 1955 Hepatitis C screening Hepatitis C screen [place] Immunizations Immunization Date Immunization Notes Care Provider Angie stacy 06-01-2018 tetanus toxoid, redu tu diphtheria toxoid, and acellular pertussis vaccine, adsorbed [facility] [place] Payers Date Payer Category Payer Medicare [id number] 2022 Self-pay [id number] 2022 Medicare HUMANA MEDICARE HUMANA GOLD PLUS [id number] 2022-Present [phone] [address] [address] [place] [address] O [id number] 2019 Unknown [id number] 2019 Unknown [employer] M [employer] CHUCK - EXCHANGE [id number] 2019-Present [phone] [address] [place] [address] [id number] 1959 Medicare [id number] 1959 Medicare [id number] 1959 Private Health Insurance [facility] [id number] 1955 Unknown [id number] [id number] 47 1956 Unknown [id number] 2.16.840.1.429910.3.579.2.6 47 1956 Unknown [id number] 2.16.840.1.561253.3.579.2.1 73 1955 Unknown [id number] 2.16.840.1.362884.3.579.2.1 73 1956 Unknown [id number] 2.16.840.1.163284.3.579.2.5 93 1956 Unknown [id number] 2.16.840.1.894447.3.579.2.5 93 1956 Unknown [id number] 2.16.840.1.519141.3.579.2.5 93 1956 Unknown [id number] 2.16.840.1.211852.3.579.2.5 93 1956 Unknown [id number] 2.16.840.1.105761.3.579.2.5 93 1956 Unknown [id number] 2.16.840.1.197025.3.579.2.5 93 1956 Unknown [id number] 2.16.840.1.222944.3.579.2.5 93 1956 Unknown [id number] 2.16.840.1.497263.3.579.2.7 27 1955 Unknown [id number] 2.16.840.1.576681.3.579.2.1 259 1955 Unknown [id number] 2.16.840.1.349936.3.579.2.1 259 1955 Unknown [id number] 2.16.840.1.134373.3.579.2.1 259 Medicare Medicare [id number] Unknown [id number] Unknown Unknown HCAP/HFA/FAP Active [id number] Unknown [id number] 31 Social History Date Type Detail Facility [facility] [place] Start: 05-31-2018 Alcohol intake Ex-drinker (finding) [place] Start: 1955 Sex Assigned At Not on file [place] Exposure to SARS-CoV -2 (event) Not sure [place] Start: 1955 Sex Assigned At Female F [facility] Start: 10-23-2022 [facility] History of tobacco use Cigarette Smoker [facility] Start: 10-23-2022 Cigarettes smoked current (pack per day) - Reported 1 [facility] Start: 10-23-2022 Tobacco use and exposure User of smokeless tobacco [facility] Start: 10-23-2022 Alcohol intake Lifetime non-d roni (finding) [facility] Start: 10-23-2022 Tobacco use panel [facility] Start: 10-23-2022 Tobacco Comment [facility] Progress note 10-23-2022 Note Date & Type Note Facility 10-23-2022 Note HNO ID: [id number] Author: Claire Morales MD Service: ? Author Type: Physician Type: Progress Notes Filed: 10/23/2022 7:37 PM Note Text: GENERAL SURGERY NEW PATIENT CONSULTATION HISTORY AND PHYSICAL Date: October 23, 2022 Time: 11:34 AM Name: Xena Ewing Ms. Ewing is here today for my opinion regarding ventral hernia. My final recommendation will be communicated back to the requesting physician by way of shared medical record or letter. HPI: Xena Ewing is a 66 year old female presents for evaluation of ventral hernia. Patient states she was told about this hernia at the time of the diagnosis of her acute appendicitis. She was not aware of it prior to that. She underwent lap appy on August 2021, surgery was uncomplicated, the hernia was not addressed at the time. She now presents for evaluation of this. Currently, she denies abdominal pain. She has some pain in the epigastric region when she does situps. Also has abdominal pain if she eats certain foods that don't agree with her. PAST MEDICAL HISTORY: GERD DeQuervain's tenosynovitis PAST SURGICAL HISTORY: Lap appy FAMILY HISTORY: No family history on file. SOCIAL HISTORY: Social History Tobacco Use Smoking status: Every Day Packs/day: 1.00 Years: 30.00 Total pack years: 30.00 Types: Cigarettes Smokeless tobacco: Current Tobacco comments: Vape Substance Use Topics Alcohol use: Never Comment: occasional Drug use: Yes Types: Marijuana Comment: Medical MEDICATIONS: Prior to Admission Medications: amoxicillin-clavulanic acid (AUGMENTIN) 875-125 mg per tablet Take 1 tablet by mouth every 12 hours. amitriptyline (ELAVIL) 50 mg tablet Take 50 mg by mouth every evening. cyclobenzaprine (FLEXERIL) 10 mg tablet Take 10 mg by mouth three times daily. doxepin capsule 10 mg TAKE 1 TO 2 CAPSULES BY MOUTH AT BEDTIME NEEDED FOR ANXIETY famotidine (PEPCID) 40 mg tablet TAKE 1 TABLET BY MOUTH TWICE DAILY with one dose being AT BEDTIME pantoprazole DR (PROTONIX) 40 mg tablet Take 1 tablet by mouth every afternoon. sucralfate (CARAFATE) 1 gram tablet TAKE 1 TABLET BY MOUTH FOUR TIMES DAILY (BEFORE MEALS AND AT BEDTIME ON AN EMPTY STOMACH) meloxicam (MOBIC) 7.5 mg tablet Take 1 tablet by mouth every afternoon. alprazolam (XANAX) 0.5 mg ORAL Tab ONE BY MOUTH EVERY HS PREMARIN 0.625 MG ORAL TAB Take one(1) tablet daily. (Patient not taking: Reported on 10/23/2022) ZANTAC 150 MG ORAL TAB Take one(1) tablet daily. (Patient not taking: Reported on 10/23/2022) No current facility-administered medications for this visit. ALLERGIES: ALLERGIES Allergen Reactions Codeine No Latex Allergy [O* REVIEW OF SYSTEMS: See HPI PHYSICAL EXAM: BP 125/71 Pulse 77 Ht 165.1 cm (5' 5 ) Wt 73.1 kg (161 lb 1.6 oz) BMI 26.81 kg/m? General appearance: AO, NAD Skin: warm Lungs: bilateral chest rise Heart: RRR Abdomen: soft, ND, hernia palpated supraumbilical, minimal reaction to deep palpation; healed lap scars Extremities: Normal exam of the extremities IMPRESSION: Patient is a 66yo F who presents after an incidentally-found ventral hernia. CT scan reviewed, supraumbilical fat-containing ventral hernia. Patient is currently asymptomatic from this, if not for the CT scan for appendicitis, she was unaware that she had this. I discussed with her the fat contents do not pose a risk for her currently, and that repair is not needed at this time given her lack of symptoms. I discussed with her signs to monitor for, and that repair can certainly be revisited if she develops any of those complaints. Claire Morales MD Advanced Laparoscopic [facility] Bariatric Surgery cc: Referring provider Anamika Valle [facility] [address] Medical Decision Making: Problems: Low: Stable chronic illness Data: Independent interpretation of test from other physician/QHCP Medical Decision Making Level: 3 - Low [place] [facility] History of Present illness Narrative 10-23-2022 Claire Morales MD - 10/23/2022 11:34 AM EDT Note Date & Type Note Facility 10-23-2022 History of Presen t illness Narrative GENERAL SURGERY NEW PATIENT CONSULTATION HISTORY AND PHYSICAL Date: October 23, 2022 Time: 11:34 AM Name: Xena Ewing Ms. Ewing is here today for my opinion regarding ventral hernia. My final recommendation will be communicated back to the requesting physician by way of shared medical record or letter. HPI: Xena Ewing is a 66 year old female presents for evaluation of ventral hernia. Patient states she was told about this hernia at the time of the diagnosis of her acute appendicitis. She was not aware of it prior to that. She underwent lap appy on August 2021, surgery was uncomplicated, the hernia was not addressed at the time. She now presents for evaluation of this. Currently, she denies abdominal pain. She has some pain in the epigastric region when she does situps. Also has abdominal pain if she eats certain foods that don't agree with her. PAST MEDICAL HISTORY: GERD DeQuervain's tenosynovitis PAST SURGICAL HISTORY: Lap appy FAMILY HISTORY: No family history on file. SOCIAL HISTORY: Social History Tobacco Use Smoking status: Every Day Packs/day: 1.00 Years: 30.00 Total pack years: 30.00 Types: Cigarettes Smokeless tobacco: Current Tobacco comments: Vape Substance Use Topics Alcohol use: Never Comment: occasional Drug use: Yes Types: Marijuana Comment: Medical MEDICATIONS: Prior to Admission Medications: amoxicillin-clavulanic acid (AUGMENTIN) 875-125 mg per tablet Take 1 tablet by mouth every 12 hours. amitriptyline (ELAVIL) 50 mg tablet Take 50 mg by mouth every evening. cyclobenzaprine (FLEXERIL) 10 mg tablet Take 10 mg by mouth three times daily. doxepin capsule 10 mg TAKE 1 TO 2 CAPSULES BY MOUTH AT BEDTIME NEEDED FOR ANXIETY famotidine (PEPCID) 40 mg tablet TAKE 1 TABLET BY MOUTH TWICE DAILY with one dose being AT BEDTIME pantoprazole DR (PROTONIX) 40 mg tablet Take 1 tablet by mouth every afternoon. sucralfate (CARAFATE) 1 gram tablet TAKE 1 TABLET BY MOUTH FOUR TIMES DAILY (BEFORE MEALS & AT BEDTIME ON AN EMPTY STOMACH) meloxicam (MOBIC) 7.5 mg tablet Take 1 tablet by mouth every afternoon. alprazolam (XANAX) 0.5 mg ORAL Tab ONE BY MOUTH EVERY HS PREMARIN 0.625 MG ORAL TAB Take one(1) tablet daily. (Patient not taking: Reported on 10/23/2022) ZANTAC 150 MG ORAL TAB Take one(1) tablet daily. (Patient not taking: Reported on 10/23/2022) No current facility-administered medications for this visit. ALLERGIES: ALLERGIES Allergen Reactions Codeine No Latex Allergy [O* REVIEW OF SYSTEMS: See HPI PHYSICAL EXAM: BP 125/71 Pulse 77 Ht 165.1 cm (5' 5 ) Wt 73.1 kg (161 lb 1.6 oz) BMI 26.81 kg/m General appearance: AO, NAD Skin: warm Lungs: bilateral chest rise Heart: RRR Abdomen: soft, ND, hernia palpated supraumbilical, minimal reaction to deep palpation; healed lap scars Extremities: Normal exam of the extremities IMPRESSION: Patient is a 66yo F who presents after an incidentally-found ventral hernia. CT scan reviewed, supraumbilical fat-containing ventral hernia. Patient is currently asymptomatic from this, if not for the CT scan for appendicitis, she was unaware that she had this. I discussed with her the fat contents do not pose a risk for her currently, and that repair is not needed at this time given her lack of symptoms. I discussed with her signs to monitor for, and that repair can certainly be revisited if she develops any of those complaints. Claire Morales MD Advanced Laparoscopic and Bariatric Surgery cc: Referring provider Anamika Valle [address] [place] [id number] Medical Decision Making: Problems: Low: Stable chronic illness Data: Independent interpretation of test from other physician/QHCP Medical Decision Making Level: 3 - Low documented in this encounter [facility] Clinical Note 08-31-2021 Note Date & Type Note Facility 08-31-2021 Note OPERATIVE NOTE OPERATION DATE: 08/31/2021 PREOPERATIVE DIAGNOSIS: Acute appendicitis. POSTOPERATIVE DIAGNOSIS: Acute appendicitis. PROCEDURE PERFORMED: Laparoscopic appendectomy. SURGEON: Eris Rehman M.D. PIPE MANUFACTURE SUPERVISOR: PINA Corona ANESTHESIA: General, 0.5% Marcaine for local. SPECIMEN: Appendix. DISPOSITION: Patient was extubated in the operating room and taken to the PACU in fair condition. PROCEDURE: Patient was brought into the operating room, placed supine on the operating table. After establishment of general endotracheal anesthesia, patient's abdomen was prepped and draped in a sterile fashion and an infraumbilical incision was made. The incision was carried down through the skin using sharp dissection and through the soft tissue using electrocautery Bovie until reaching the anterior rectus fascia. The fascia was scored in the midline using electrocautery Bovie and grasped with Chris clamps and elevated. 0 Vicryl stay sutures were placed. Using blunt dissection, the peritoneum was visualized and visualized. It was grasped with hemostats and elevated and incised with the scalpel. The 12 mm balloon Roxana port was placed into the abdominal cavity and the balloon was insufflated and the abdomen insufflated with CO2 gas. The 5 mm port was placed in the right upper quadrant under direct laparoscopic visualization, and a second 5 mm port was placed in the left lower quadrant. Patient was placed in Trendelenburg position. The patient had adhesions of her cecum to the abdominal wall. This was easily taken down using blunt dissection with a laparoscopic peanut and electrocautery scissors. The appendix was visualized and it was inflamed and distended. A defect in the mesoappendix was created with the curved dissector. The base of the appendix was transected using an Endo-BARRERA stapler. The mesoappendix was transected using several firings of the Endo-BARRERA stapler. The appendix was placed in an Endocatch bag and removed via the infraumbilical port. The port was replaced and the abdomen re-insufflated with CO2 gas. There was some oozing from the staple line of the cecum. Two surgical clips were placed. Hemostasis was evident. The right lower quadrant was irrigated with normal saline and suctioned. The patient had a supraumbilical hernia. There were no contents. The hernia, at this time, will not be repaired. It was discussed with her prior to the surgery that, if she has any difficulties down the line, then we can repair it then. The infraumbilical port was removed and the fascia was re-approximated using the previously placed stay sutures. All the wounds were anesthetized with 0.5% Marcaine. The skin was re-approximated using 4-0 Monocryl subcuticular fashion. The incisions were cleaned with normal saline and dried. Tincture of Benzoin was placed on both sides of the incisions, and half inch Steri-Strips were placed along with dry sterile dressing. The patient was extubated in the operating room and taken to the PACU in fair condition. [facility] Signed and Approved by: DR ERIS REHMAN . 09/15/2021 06:33:00 [facility] Evaluation note Note Date & Type Note Facility Evaluation note No assessment information availa [facility] Work Phone: Evaluation note Note Date & Type Note Facility Evaluation note Diagnosis Ventral hernia without obstruction or gangrene- Primary Ventral hernia, unspecified, without mention of obstruction or gangrene documented in this encounter [facility] Summary Purpose Family History No Family History Records FoundNo Family History Records FoundNo Family History Records FoundNo Family History Records FoundNo Family History Records FoundNo Family History Records FoundNo Family History Records Found Advance Directives No Advanced Directives Records FoundDocuments on File Type Date 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 Advance Directives and Living Will Power of Unload Associate Advance Directive Response Recorded Date/ Time Advance Directives No June 06, 2 018 3:52pm Chief Complaint and Reason for Visit Chief Complaint Screening Additional Source Comments INFORMATION SOURCE (unrecogn ized section and content) DATE CREATED AUTHOR 03/21/2018 [facility] DATE CREATED AUTHOR AUTHOR'S ORGANIZ ATION 10/14/2019 [facility] DATE CREATED AUTHOR AUTHOR'S ORGANIZ ATION 04/27/2022 [facility] DATE CREATED AUTHOR AUTHOR'S ORGANIZ ATION 09/17/2022 [facility] DATE CREATED AUTHOR AUTHOR'S ORGANIZ ATION 10/27/2022 [facility] DATE CREATED AUTHOR AUTHOR'S ORGANIZ ATION 01/01/2023 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 Relationship Specialty Start Date End Date Anamika Valle MD PCP - General 10/24/04 Anamika Valle MD [address] [place] [address] Referring Family Medicine 10/05/22 Goals (unrecognized section and content) Goals may be documented in a n alternate sectionGoals may be documented in an alternate section Source Comments (unrecognize d section and content) In the event this informatio n is protected by the Federal Confidentiality of Alcohol and Drug Abuse Patient Records regulations: The Federal rules restrict any use of the information to criminally investigate or prosecute any alcohol or drug abuse patient.[facility] Reason for Visit (unrecogniz ed section and content) Reason Comments New Patient FOR RECORDS PERTAINING TO PATIENTS WHO ARE OR HAVE BEEN ENROLLED IN A CHEMICAL DEPENDENCY/SUBSTANCEABUSE PROGRAM, SOME INFORMATION MAY BE OMITTED. This clinical summary was aggregated from multiple sources. Caution should be exercised in using it in the provision of clinical care. This summary normalizes information from multiple sources, and as a consequence, information in this document may materially change the coding, format and clinical context of patient data. In addition, data may be omitted in some cases. CLINICAL DECISIONS SHOULD BE BASED ON THE PRIMARY CLINICAL RECORDS. [facility]. provides no warranty or guarantee of the accuracy or completeness of information in this document.
[2023-06-03 09:07] LABS: Age Gdln ACOG Testing Note (.); Pap IG (Image Guided) Note (.)
== END 2023-05-29 21:10 | disposition home or self-care (01) ==
LOC: LAB 21:09
PROVIDERS: PCP Family Medicine; Visit Provider Physician Assistant
DX: Z01.419 Encounter for gynecological examination (general) (routine) without abnormal findings (principal)
CPT/HCPCS: G0145

== ENCOUNTER 2023-07-08 16:32 | Outpatient (OUT) | payer MEDICARE, SELFPAY ==
--- NOTE | 2023-07-08 16:52 | XR_ITS ---
The [address] [address] Patient Name: GILLIAN HERMOSILLO MRN: [id number] date: 1955 Sex: F Assigned Patient Location: [facility] Current Patient Location: Accession/Order Number: [id number] Exam Date: 07/08/2023 16:42 Report Date: 07/09/2023 04:19 At the request of: ANAMIKA BENAVIDES Procedure: XR knee ANDREAS 3V PROCEDURE: XR knee ANDREAS 3V HISTORY: knee osteoarthritis M17.10 ; acute bilateral knee pain; no known injury COMPARISON: None. FINDINGS: BONES:Small periarticular degenerative osteophytes along the articular margins of all 3 compartments bilaterally. No significant joint space narrowing. No fracture, dislocation, bone lesion. SOFT TISSUES:No visible soft tissue swelling. EFFUSION:None visible. OTHER: Negative. XR/XR knee ANDREAS 3V IMPRESSION: 1. Only mild degenerative changes bilaterally. 2. No appreciable acute abnormality. Electronically authenticated by: DANNA HANNA Date: 07/09/2023 04:19
== END 2023-07-08 16:33 | disposition home or self-care (01) ==
LOC: RAD 16:33
PROVIDERS: PCP Family Medicine; Visit Provider Family Medicine
DX: M17.0 Bilateral primary osteoarthritis of knee (principal)
CPT/HCPCS: 73562

== ENCOUNTER 2023-10-07 15:16 | Outpatient (OUT) | payer MEDICARE, SELFPAY ==
--- OUTSIDE RECORDS SUMMARY | 2023-10-07 15:36 | XMS_ITS | CCD ---
Author Organization [facility] Care Team Providers Care Circle Beveler Name Role Phone PHYSICIAN, DEFAULT Unavailable Unavailable PHYSICIAN, DEFAULT Unavailable Unavailable MAKAYLA ANAMIKA Unavailable Unavailable JI, ABDULAZIM Unavailable Unavailable JI, ABDULAZIM Unavailable Unavailable JANINE VALLELAS Unavailable Unavailable ANAMIKA VALLE Unavailable Unavailable AL Unavailable Unavailable JI, ABDULAZIM Unavailable Unavailable AL Unavailable Unavailable BOUCHRA HARPER Unavailable Unavailable ANAMIKA VALLE Referring Unavailable ANAMIKA VALLE Primary Care Unavailable ANAMIKA VALLE Referring Unavailable ANAMIKA VALLE Primary Care Unavailable Anamika Valle Primary Care Provider MD Anamika Valle Primary Care Provider Self, Referral Attending Provider Unavailable DR ANAMIKA VALLE Admitting Unavailable MAKAYLA, DR WILLSON Attending Unavailable MAKAYLA, DR WILLSON Primary Care Unavailable DR ANAMIKA VALLE Consulting Unavailable DR Jeronimo Castle Consulting Unavailable DR ANAMIKA VALLE Primary Care Unavailable WIERICKA, DR ERIS Irwin Admitting Unavailable WIECEKatelin, DR ERIS Irwin Attending Unavailable WIERICKA, DR ERIS Irwin Consulting Unavailable DR Jeronimo Castle Consulting Unavailable DEXTER SAUNDERS Consulting Unavailable KELLY LEWIS Consulting Unavailable JERONIMO HERNANDES Consulting Unavailable DR ANAMIKA VALLE Admitting Unavailable MAKAYLA, DR WILLSON Attending Unavailable DR ANAMIKA VALLE Primary Care Unavailable DR ANAMIKA VALLE Consulting Unavailable Corrine, DR Decker Consulting Unavailable DR ANAMIKA VALLE Admitting Unavailable MAKAYLA, DR WILLSON Attending Unavailable DR ANAMIKA VALLE Primary Care Unavailable DR ANAMIKA VALLE Consulting Unavailable MARQUES, DR ENIO Vasquez Consulting Unavailable DR ANAMIKA VALLE Admitting Unavailable MAKAYLA, DR WILLSON Attending Unavailable MAKAYLA, DR WILLSON Primary Care Unavailable DR ANAMIKA VALLE Consulting Unavailable MAKAYLA, DR WILLSON Admitting Unavailable MAKAYLA, DR WILLSON Attending Unavailable MAKAYLA, DR WILLSON Primary Care Unavailable MAKAYLA, DR WILLSON Consulting Unavailable WEST, DR ENIO Vasquez Consulting Unavailable DESTINI DOOLEY Admitting Unavailable DESTINI DOOLEY Attending Unavailable MAKAYLA, DR WILLSON Primary Care Unavailable DESTINI DOOLEY Consulting Unavailable Rubén MANUEL Attending Unavailable Anamika Valle Referring Unavailable Anamika Valle MD Primary Care Provider [phone] Anamika Valle MD Unavailable ANAMIKA VALLE Referring Unavailable ANAMIKA VALLE Primary Care Unavailable CLAIRE MORALES Attending Unavailable MD Anamika Valle Primary Care Provider Self, Referral Attending Provider Unavailable Anamika Valle Primary Care Unavailable Self, Referral Attending Unavailable Self, Referral Admitting Unavailable MONIE NAVARRO Attending Unavailable MONIE NAVARRO Attending Unavailable MONIE NAVARRO Attending Unavailable DESI COKER Attending Unavailable MONIE NAVARRO Attending Unavailable MONIE NAVARRO Attending Unavailable Allergies Allergy Classification Reported Allergen(s) Allergy Type Date of Onset Reaction(s) Facility (6 sources) Codeine; Translations: [CODEINE] Drug Allergy 5 Nausea Only [facility] [place] Repository (1 source) Etodolac Drug Allergy 7 [facility] Repository (1 source) no latex allergy [Other] Propensity to adverse reactions 5 [facility] (1 source) OTHER; Translations: [OTHER] Propensity to adverse reactions (disorder) 5 [facility] Repository (1 source) Unable to Assess Drug allergy (disorder) 9 [facility] Repository Medications Current Medications Medication Drug [...] AT BEDTIME NEEDED FOR ANXIETY estrogens, conjugated (chcf) 0.625 mg oral tablet (1 source) Estrogen [...] n 12-24-2022 MM screening mammo BI w/CAD [facility] Main [place] [id number] Mammography Report Signed Patient: Xena Ewing MR#: [id number] : 1955 Acct:[id number] Age/Sex: 67 / F ADM Date: 12/24/22 Loc: [place] Room: Type: [facility] Attending Dr: Referral Self Copies to: Anamika [...] Megan Lee M.D.12/24/2022 3:06 PM Dictation Location: [facility] Transcribed By: [facility] 12/24/22 1506 Dictated By: Megan Lee MD 12/24/22 150 Signed By: 12/24/22 1506 [facility] CNOVon 10-23-2022 CNOV Office Visit (GENBMI ) -------- XENA EWING ([id number]) 1955 F T Date Time Provider Department [...] cc: Referring provider Anamika Valle [address] [facility] [id number] Medical Decision Making: Problems: Low: Stable chronic illness Data: Independent interpretation of test from other physician/QHCP Medical Decision Making Level: 3 - Low Referring Provider: ANAMIKA VALLE [[id number]] Allergies As of Date: 10/23/2022 Noted Allergy [...] ANXIETY - (more content not included)... Normal [facility] Physician Referralon 023 Physician Referral [phone] [id number]: 127 Normal [facility] PAP ACOG PANEL 2: 30 to 65on 04-26-2022 . . Normal [facility] Comment on above: Result Comment: Perf ormed at: WB Performed By: #### 4 [id number] #### [facility] [address] [place] [address] [address] Kayy Virgen Age Gdln ACOG Testing 30-65 Normal [facility] Comment on above: Performed By: #### 4 [id number] #### [facility] [address] [address] [address] Kayy Virgen DIAGNOSIS: Comment [facility] Comment on above: Result Comment: UNSA TISFACTORY FOR EVALUATION. Performed at: WB Performed By: #### 4 [id number] #### [facility] [address] [address] [address] Kayy Virgen HPV Aptima Negative Normal Negative [facility] Comment on above: Result Comment: This nucleic acid amplification test detects fourteen high-risk HPV types (16,18,31,33,35,39,45,51,52,56,58,59,66,68) without differentiation. Performed at: =G Performed By: #### 4 [id number] #### [facility] [address] [address] [address] Kayy Virgen HPV Genotype Reflex Comment Normal [facility] Comment on above: Result Comment: Crit eria not met, HPV Genotype not performed. Performed at: WB Performed By: #### 4 [id number] #### [facility] [address] [address] [address] Kayy Virgen Methodology: Comment Normal [facility] Comment on above: Result Comment: This liquid based ThinPrep(R) pap test was screened with the use of an image guided system. Performed at: WB Performed By: #### 4 [id number] #### [facility] [address] [address] [address] Kayy Virgen Note: Comment Normal [facility] Comment on above: Result Comment: The Pap smear is a screening test designed to aid in the detection of premalignant and malignant conditions of the uterine cervix. It is not a diagnostic procedure and should not be used as the sole means of detecting cervical cancer. Both false-positive and false-negative reports do occur. . Performed at: WB Performed By: #### 4 [id number] #### [facility] [address] [place] [address] Dr. Kayy Virgen Performed by: Comment Normal [facility] Comment on above: Result Comment: Arturo Peters, Collection Officer (ASCP) Performed at: KWCYT Performed By: #### 4 [id number] #### [facility] [address] [place] [address] Dr. Kayy Virgen QC reviewed by: Comment Normal [facility] Comment on above: Result Comment: Pepe Cordova, Supervisory Collection Officer (ASCP) Performed at: WB Performed By: #### 4 [id number] #### [facility] [address] [place] [address] Dr. Kayy Virgen Recommendation: Comment Normal [facility] Comment on above: Result Comment: Sugg est follow up as clinically appropriate. Performed at: WB Performed By: #### 4 [id number] #### [facility] [address] [address] [address] Kayy Virgen Specimen adequacy: Comment Normal [facility] Comment on above: Result Comment: Spec imen processed and examined but unsatisfactory for evaluation of epithelial abnormality because of insufficient cellularity. Performed at: WB Performed By: #### 4 [id number] #### [facility] [address] [place] [address] Dr. Kayy Virgen US THYROIDon 01-05-2022 US [...] TR 4 nodule, previously biopsied TI-RADS: The [employer] TI-RADS committee's white paper recommendations for thyroid lesions classified as TR3 (mildly suspicious) are listed below: > 1.5 cm. Follow-up ultrasound in 1, 3, and 5 years. > 2.5 cm. FNA. J. Am Anais Radiol 2017;14:587-595. Electronically authenticated by: ENIO MOHAN Date: 2022-01-05 15:25 Normal [facility] T4, T3U, FTI LABCORPon 11-10 Free Thyroxine Index 2.0 Normal 1.2-4.9 [facility] Comment on above: Performed By: #### T HYLC ####[facility] [address] [place] [address]Dr. Kayy Virgen T3 Uptake 26 % Normal 24-39 [facility] Comment on above: Performed By: #### T HYLC ####[facility] [address] [place] [address]Dr. Kayy Virgen T4 [Mass/Vol] 7.5 ug/dL Normal 4.5-12.0 [facility] Comment on above: Performed By: #### T HYLC ####[facility] [address] [place] [address]Dr. Kayy Virgen CBC AUTO DIFFon 11-09-2021 BASO # 0.1 103/ul Normal 0.0-0.1 [facility] Comment on above: Performed By: #### C BC ####[facility] [address] [place] [address]Dr. Kayy Virgen Basophils/100 WBC (Bld) 2.1 % Critically high 0.2-2.0 [facility] Comment on above: Performed By: #### C BC ####[facility] [address] [place], [place] [address]Dr. Kayy Virgen EO # 0.2 103/ul Normal 0.0-0.7 [facility] Comment on above: Performed By: #### C BC ####[facility] [address] [place], [place] [address]Dr. Kayy Virgen Eosinophils/100 WBC (Bld) 5.1 % Normal 0.9-7.0 [facility] Comment on above: Performed By: #### C BC ####[facility] [address] [place], [place] [address]Dr. Kayy Virgen Erythrocyte distribution width (RBC) [Ratio] 14.6 % Normal 11.0-15.0 [facility] Comment on above: Performed By: #### C BC ####[facility] [address] [place], [place] [address]Dr. Kayy Virgen Hematocrit (Bld) [Volume fraction] 38.5 % Normal 36.0-48.0 [facility] Comment on above: Performed By: #### C BC ####[facility] [address] [place], [place] [address]Dr. Kayy Virgen Hemoglobin (Bld) [Mass/Vol] 12.4 g/dL Normal 12.0-16.0 [facility] Comment on above: Performed By: #### C BC ####[facility] [address] [place], [place] [address]Dr. Kayy Virgen IG # 0.01 10e3/ul Normal 0.00-0.03 [facility] Comment on above: Performed By: #### C BC ####[facility] [address] [place], [place] [address]Dr. Kayy Virgen IG % 0.2 % Normal 0.0-0.5 [facility] Comment on above: Performed By: #### C BC ####[facility] [address] [place] [address]Dr. Kayy Virgen LYMPH # 1.5 103/ul Normal 1.2-3.8 [facility] Comment on above: Performed By: #### C BC ####[facility] [address] [place], [place] [address]Wi. Kayy Param Lymphocytes/100 WBC (Bld) 33.7 % Normal 20.5-60.0 [facility] Comment on above: Performed By: #### C BC ####[facility] [address] [place] [address]Dr. Kayy Param MANUAL DIFF REQ NO Normal [facility] Comment on above: Performed By: #### C BC ####[facility] [address] [place] [address]Dr. Kayy Param MCH (RBC) [Entitic mass] 26.7 pg Normal 26.7-34.0 [facility] Comment on above: Performed By: #### C BC ####[facility] [address] [place] [address]Dr. Kayy Virgen MCHC (RBC) [Mass/Vol] 32.2 g/dL Normal 29.9-35.2 [facility] Comment on above: Performed By: #### C BC ####[facility] [address] [place] [address]Dr. Kayy Param MCV (RBC) [Entitic vol] 82.8 fL Normal 81.0-99.0 [facility] Comment on above: Performed By: #### C BC ####[facility] [address] [place] [address]Dr. Kayy Virgen MONO # 0.5 103/ul Normal 0.3-0.8 [facility] Comment on above: Performed By: #### C BC ####[facility] [address] [place] [address]Dr. Kayy Param Monocytes/100 WBC (Bld) 11.9 % Normal 1.7-12.0 [facility] Comment on above: Performed By: #### C BC ####[facility] [address] [place] [address]Dr. Shereesamia Virgen NEUT # 2.0 103/ul Normal 1.4-6.5 [facility] Comment on above: Performed By: #### C BC ####[facility] [address] [place] [address]Dr. Kayy Virgen Neutrophils/100 WBC (Bld) 47.0 % Normal 43.0-75.0 [facility] Comment on above: Performed By: #### C BC ####[facility] [address] [place] [address]Dr. Kayy Virgen Platelet mean volume (Bld) [Entitic vol] 9.7 fL Normal 9.5-13.5 [facility] Comment on above: Performed By: #### C BC ####[facility] [address] [place] [address]Dr. Kayy Virgen PLT 269 103/ul Normal 150-450 [facility] Comment on above: Performed By: #### C BC ####[facility] [address] [place] [address]Dr. Kayy Viregn RBC 4.65 106/ul Normal 4.20-5.40 [facility] Comment on above: Performed By: #### C BC ####[facility] [address] [place] [address]Dr. Kayy Virgen WBC 4.3 103/ul Normal 4.0-11.0 [facility] Comment on above: Performed By: #### C BC ####[facility] [address] [place] [address]DrIrene Virgen GLYCOHEMOGLOBIN A1Con 2021 ADA RECOMMENDATION SEE BELOW Normal [facility] Comment on above: Result Comment: ADA RECOMMENDED LIMIT 4.0 - 6.0 ADA THERAPEUTIC TARGET < 7.0 ACTION SUGGESTED > 7.0 Performed By: #### A 1C #### [facility] [address] [place], [place] [address] Dr. Kayy Virgen Glucose [Mass/Vol] 117 mg/dL Normal [facility] Comment on above: Performed By: #### A 1C #### [facility] [address] [place] [address] Dr. Kayy Virgen HbA1c (Bld) [Mass fraction] 5.7 % Normal 4.5-6.2 [facility] Comment on above: Performed By: #### A 1C #### [facility] [address] [place] [address] Dr. Kayy Virgen IRONon 11-09-2021 Iron [Mass/Vol] 100.0 ug/dL Normal 50.0-170.0 [facility] Comment on above: Performed By: #### I STEPHANI #### [facility] [address] [place] [address] Dr. Kayy Virgen PROF 14(COMP METB)on 022 Albumin [Mass/Vol] 4.0 g/dL Normal 3.4-5.0 [facility] Comment on above: Performed By: #### C MP, TSH #### [facility] [address] [place] [address] Dr. Kayy Virgen Albumin/Globulin [Mass ratio] 1.1 {ratio} Normal [facility] Comment on above: Performed By: #### C MP, TSH #### [facility] [address] [place] [address] Dr. Kayy Virgen ALP [Catalytic activity/Vol] 109 U/L Normal 46-116 [facility] Comment on above: Performed By: #### C MP, TSH #### [facility] [address] [place] [address] Dr. Kayy Virgen ALT [Catalytic activity/Vol] 26 U/L Normal 14-59 [facility] Comment on above: Performed By: #### C MP, TSH #### [facility] [address] [place] [address] Dr. Kayy Virgen Anion gap [Moles/Vol] 11.2 mmol/L Normal [facility] Comment on above: Performed By: #### C MP, TSH #### [facility] [address] [place] [address] Dr. Kayy Virgen AST [Catalytic activity/Vol] 58 U/L Critically high 15-37 [facility] Comment on above: Performed By: #### C MP, TSH #### [facility] [address] [place] [address] [address] Kayy Virgen Bilirubin [Mass/Vol] 0.4 mg/dL Normal 0.2-1.0 [facility] Comment on above: Performed By: #### C MP, TSH #### [facility] [address] [place] [address] [address] Kayy Virgen Calcium [Mass/Vol] 9.8 mg/dL Normal 8.5-10.1 [facility] Comment on above: Performed By: #### C MP, TSH #### [facility] [address] [place] [address] Dr. Kayy Virgen Chloride [Moles/Vol] 103 mmol/L Normal 98-107 [facility] Comment on above: Performed By: #### C MP, TSH #### [facility] [address] [place] [address] Dr. Kayy Virgen CO2 [Moles/Vol] 28.2 mmol/L Normal 21.0-32.0 [facility] Comment on above: Performed By: #### C MP, TSH #### [facility] [address] [place] [address] Dr. Kayy Virgen Creatinine [Mass/Vol] 0.98 mg/dL Normal 0.55-1.02 [facility] Comment on above: Performed By: #### C MP, TSH #### [facility] [address] [place] [address] Dr. Kayy Virgen EGFR-AF EMIRATI >60 Normal >=60 [facility] Comment on above: Performed By: #### C MP, TSH #### [facility] [address] [place] [address] Dr. Kayy Virgen EGFR-NON AF EMIRATI 57 mL/min/1.73m2 Critically low >=60 [facility] Comment on above: Performed By: #### C MP, TSH #### [facility] [address] [place] [address] Dr. Kayy Virgen Globulin (S) [Mass/Vol] 3.8 g/dL Normal [facility] Comment on above: Performed By: #### C MP, TSH #### [facility] [address] [address] [address] Kayy Virgen Glucose [Mass/Vol] 102 mg/dL Normal 74-106 [facility] Comment on above: Performed By: #### C MP, TSH #### [facility] [address] [place] [address] Dr. Kayy Virgen Potassium [Moles/Vol] 4.4 mmol/L Normal 3.5-5.1 [facility] Comment on above: Performed By: #### C MP, TSH #### [facility] [address] [place] [address] Dr. Kayy Virgen Protein [Mass/Vol] 7.8 g/dL Normal 6.4-8.2 [facility] Comment on above: Performed By: #### C MP, TSH #### [facility] [address] [place] [address] Dr. Kayy Virgen Sodium [Moles/Vol] 138 mmol/L Normal 136-145 [facility] Comment on above: Performed By: #### C MP, TSH #### [facility] [address] [place] [address] Dr. Kayy Virgen Urea nitrogen [Mass/Vol] 22.0 mg/dL Critically high 7.0-18.0 [facility] Comment on above: Performed By: #### C MP, TSH #### [facility] [address] [place] [address] Dr. Kayy Virgen Urea nitrogen/Creatinine [Mass ratio] 22.4 mg/mg Normal [facility] Comment on above: Performed By: #### C MP, TSH #### [facility] [address] [place] [address] Dr. Kayy Virgen TSHon 11-09-2021 TSH 1.200 uIU/mL Normal 0.358-3.740 [facility] Comment on above: Performed By: #### C MP, TSH #### [facility] [address] [place] [address] Dr. Kayy Virgen AMYLASEon 08-31-2021 Amylase [Catalytic activity/Vol] 34 U/L Normal 25-115 [facility] Comment on above: Performed By: #### A MY, CMP, LIPA ####[facility] [address] [place] [address]Dr. Kayy Virgen CBC AUTO DIFFon 08-31-2021 BASO # 0.1 103/ul Normal 0.0-0.1 [facility] Comment on above: Performed By: #### C BC ####[facility] [address] [place] [address]Dr. Kayy Virgen Basophils/100 WBC (Bld) 0.8 % Normal 0.2-2.0 [facility] Comment on above: Performed By: #### C BC ####[facility] [address] [place] [address]DrIrene Virgen EO # 0.0 103/ul Normal 0.0-0.7 [facility] Comment on above: Performed By: #### C BC ####[facility] [address] [place] [address]Dr. Kayy Virgen Eosinophils/100 WBC (Bld) 0.6 % Critically low 0.9-7.0 [facility] Comment on above: Performed By: #### C BC ####[facility] [address] [place] [address]Dr. Kayy Virgen Erythrocyte distribution width (RBC) [Ratio] 13.9 % Normal 11.0-15.0 [facility] Comment on above: Performed By: #### C BC ####[facility] [address] [place] [address]Dr. Kayy Virgen Hematocrit (Bld) [Volume fraction] 37.7 % Normal 36.0-48.0 [facility] Comment on above: Performed By: #### C BC ####[facility] [address] [place] [address]Dr. Kayy Virgen Hemoglobin (Bld) [Mass/Vol] 12.3 g/dL Normal 12.0-16.0 [facility] Comment on above: Performed By: #### C BC ####[facility] [address] [place] [address]Dr. Kayy Virgen IG # 0.02 10e3/ul Normal 0.00-0.03 [facility] Comment on above: Performed By: #### C BC ####[facility] [address] [place] [address]Dr. Kayy Virgen IG % 0.3 % Normal 0.0-0.5 [facility] Comment on above: Performed By: #### C BC ####[facility] [address] [place] [address]Dr. Kayy Virgen LYMPH # 1.4 103/ul Normal 1.2-3.8 [facility] Comment on above: Performed By: #### C BC ####[facility] [address] [place] [address]Dr. Kayy Virgen Lymphocytes/100 WBC (Bld) 20.8 % Normal 20.5-60.0 [facility] Comment on above: Performed By: #### C BC ####[facility] [address] [place] [address]Dr. Shereesamia Virgen MANUAL DIFF REQ NO Normal [facility] Comment on above: Performed By: #### C BC ####[facility] [address] [place] [address]Dr. Kayy Virgen MCH (RBC) [Entitic mass] 26.9 pg Normal 26.7-34.0 [facility] Comment on above: Performed By: #### C BC ####[facility] [address] [place] [address]Dr. Kayy Virgen MCHC (RBC) [Mass/Vol] 32.6 g/dL Normal 29.9-35.2 [facility] Comment on above: Performed By: #### C BC ####[facility] [address] [place] [address]Dr. Kayy Virgen MCV (RBC) [Entitic vol] 82.5 fL Normal 81.0-99.0 [facility] Comment on above: Performed By: #### C BC ####[facility] [address] [place] [address]Dr. Kayy Virgen MONO # 0.6 103/ul Normal 0.3-0.8 [facility] Comment on above: Performed By: #### C BC ####[facility] [address] [place] [address]Dr. Kayy Virgen Monocytes/100 WBC (Bld) 8.8 % Normal 1.7-12.0 [facility] Comment on above: Performed By: #### C BC ####[facility] [address] [place] [address]Dr. Kayy Virgen NEUT # 4.5 103/ul Normal 1.4-6.5 [facility] Comment on above: Performed By: #### C BC ####[facility] [address] [place] [address]Dr. Kayy Virgen Neutrophils/100 WBC (Bld) 68.7 % Normal 43.0-75.0 [facility] Comment on above: Performed By: #### C BC ####[facility] [address] [place] [address]Dr. Kayy Virgen Platelet mean volume (Bld) [Entitic vol] 10.2 fL Normal 9.5-13.5 [facility] Comment on above: Performed By: #### C BC ####[facility] [address] [place] [address]Dr. Kayy Virgen PLT 265 103/ul Normal 150-450 [facility] Comment on above: Performed By: #### C BC ####[facility] [address] [place] [address]Dr. Kayy Virgen RBC 4.57 106/ul Normal 4.20-5.40 [facility] Comment on above: Performed By: #### C BC ####[facility] [address] [place] [address]Dr. Kayy Virgen WBC 6.5 103/ul Normal 4.0-11.0 [facility] Comment on above: Performed By: #### C BC ####[facility] [address] [place], [place] [address]Dr. Kayy Virgen CT ABD/PELVIS WO CONon 08-31 [...] JERONIMO CASTLE Date: 2021-08-31 12:25 Normal [facility] ER URINE PROFILEon 2 Bilirubin Ql (U) Negative Normal NEGATIVE [facility] Comment on above: Performed By: #### E RUR #### [facility] [address] [address] [address] Kayy Virgen Clarity (U) CLEAR Normal CLEAR [facility] Comment on above: Performed By: #### E RUR #### [facility] [address] [address] [address] Kayy Virgen Color (U) LT. YELLOW Normal YELLOW [facility] Comment on above: Performed By: #### E RUR #### [facility] [address] [address] [address] Kayy Virgen ERUDODIE A micrscopic examina tion will be performed if indicated. Normal [facility] Comment on above: Performed By: #### E RUR #### [facility] [address] [address] [address] Kayy Virgen Glucose Ql (U) Negative Normal NEGATIVE [facility] Comment on above: Performed By: #### E RUR #### [facility] [address] [address] [address] Kayy Virgen Hemoglobin Ql (U) Negative Normal NEGATIVE [facility] Comment on above: Performed By: #### E RUR #### [facility] [address] [place] [address] Dr. Kayy Virgen Ketones Ql (U) Negative Normal NEGATIVE [facility] Comment on above: Performed By: #### E RUR #### [facility] [address] [place] [address] Dr. Kayy Virgen LEUKOCYTES Negative Normal NEGATIVE [facility] Comment on above: Performed By: #### E RUR #### [facility] [address] [place] [address] Dr. Kayy Virgen Nitrite Ql (U) Negative Normal NEGATIVE [facility] Comment on above: Performed By: #### E RUR #### [facility] [address] [place] [address] Dr. Kayy Virgen pH (U) 6.0 [pH] Normal 5-9 [facility] Comment on above: Performed By: #### E RUR #### [facility] [address] [place] [address] Dr. Kayy Virgen SPEC GRAVITY <=1.005 Abnormal 1.005-<=1.025 [facility] Comment on above: Performed By: #### E RUR #### [facility] [address] [place] [address] Dr. Kayy Virgen UA PROTEIN Negative Normal NEGATIVE/ TRACE [facility] Comment on above: Performed By: #### E RUR #### [facility] [address] [address] [address] Kayy Virgen UR MICRO IND NOT INDICATED Normal [facility] Comment on above: Performed By: #### E RUR #### [facility] [address] [address] [address] Kayy Virgen Urobilinogen Qn (U) 0.2 {Cuauhtemoc'U}/dL Normal 0.2 - 1. 0 [facility] Comment on above: Performed By: #### E RUR #### [facility] [address] [address] [address] Kayy Virgen LIPASEon 08-31-2021 Lipase [Catalytic activity/Vol] 73.0 U/L Normal 73.0-393.0 [facility] Comment on above: Performed By: #### A MY, CMP, LIPA #### [facility] [address] [place] [address] Dr. Kayy Virgen PROF 14(COMP METB)on 022 Albumin [Mass/Vol] 3.6 g/dL Normal 3.4-5.0 [facility] Comment on above: Performed By: #### A MY, CMP, LIPA ####[facility] [address] [address]DrIrene Virgen Albumin/Globulin [Mass ratio] 0.9 {ratio} Normal [facility] Comment on above: Performed By: #### A MY, CMP, LIPA ####[facility] [address] [address]DrIrene Virgen ALP [Catalytic activity/Vol] 98 U/L Normal 46-116 [facility] Comment on above: Performed By: #### A MY, CMP, LIPA ####[facility] [address] [address]DrIrene Virgen ALT [Catalytic activity/Vol] 22 U/L Normal 14-59 [facility] Comment on above: Performed By: #### A MY, CMP, LIPA ####[facility] [address] [address]DrIrene Virgen Anion gap [Moles/Vol] 12.6 mmol/L Normal [facility] Comment on above: Performed By: #### A MY, CMP, LIPA ####[facility] [address] [address]Dr. Kayy Virgen AST [Catalytic activity/Vol] 44 U/L Critically high 15-37 [facility] Comment on above: Performed By: #### A MY, CMP, LIPA ####[facility] [address] [address]Dr. Kayy Virgen Bilirubin [Mass/Vol] 0.5 mg/dL Normal 0.2-1.0 [facility] Comment on above: Performed By: #### A MY, CMP, LIPA ####[facility] [address] [place], [place] [address]Dr. Kayy Virgen Calcium [Mass/Vol] 9.2 mg/dL Normal 8.5-10.1 [facility] Comment on above: Performed By: #### A MY, CMP, LIPA ####[facility] [address] [place], [place] [address]Dr. Kayy Virgen Chloride [Moles/Vol] 104 mmol/L Normal 98-107 [facility] Comment on above: Performed By: #### A MY, CMP, LIPA ####[facility] [address] [address]Dr. Kayy Virgen CO2 [Moles/Vol] 24.3 mmol/L Normal 21.0-32.0 [facility] Comment on above: Performed By: #### A MY, CMP, LIPA ####[facility] [address] [place], [place] [address]Dr. Kayy Virgen Creatinine [Mass/Vol] 0.87 mg/dL Normal 0.55-1.02 [facility] Comment on above: Performed By: #### A MY, CMP, LIPA ####[facility] [address] [address]Dr. Kayy Virgen EGFR-AF EMIRATI >60 Normal >=60 [facility] Comment on above: Performed By: #### A MY, CMP, LIPA ####[facility] [address] [id number]. Kayy Virgen EGFR-NON AF EMIRATI >60 Normal >=60 [facility] Comment on above: Performed By: #### A MY, CMP, LIPA ####[facility] [address] [address]Dr. Kayy Virgen Globulin (S) [Mass/Vol] 4.0 g/dL Normal [facility] Comment on above: Performed By: #### A MY, CMP, LIPA ####[facility] [address] [address]Dr. Kayy Virgen Glucose [Mass/Vol] 96 mg/dL Normal 74-106 [facility] Comment on above: Performed By: #### A MY, CMP, LIPA ####[facility] [address] [address]Dr. Kayy Virgen Potassium [Moles/Vol] 3.9 mmol/L Normal 3.5-5.1 [facility] Comment on above: Performed By: #### A MY, CMP, LIPA ####[facility] [address] [address]Dr. Kayy Virgen Protein [Mass/Vol] 7.6 g/dL Normal 6.4-8.2 [facility] Comment on above: Performed By: #### A MY, CMP, LIPA ####[facility] [address] [address]Dr. Kayy Virgen Sodium [Moles/Vol] 137 mmol/L Normal 136-145 [facility] Comment on above: Performed By: #### A MY, CMP, LIPA ####[facility] [address] [address]Dr. Kayy Virgen Urea nitrogen [Mass/Vol] 11.0 mg/dL Normal 7.0-18.0 [facility] Comment on above: Performed By: #### A MY, CMP, LIPA ####[facility] [address] [address]Dr. Kayy Virgen Urea nitrogen/Creatinine [Mass ratio] 12.6 mg/mg Normal [facility] Comment on above: Performed By: #### A MY, CMP, LIPA ####[facility] [address] [place], [place] [address]JwIrene Virgen US THYROID FN ASP BXon 07-05 US THYROID FN ASP BX Begin Addendum #1 COLLECTED DATE/TIME: 06/29/2021 13:56 EDT Final Diagnosis Report for [facility], [place] (A/B) RIGHT THYROID NODULE; FINE NEEDLE [...] 2. Pathology results are pending. Normal [facility] US THYROIDon 06-21-2021 US THYROID EXAMINATION: US [...] nodule. Fine needle aspiration recommended TI-RADS: The [employer] TI-RADS committee's white paper recommendations for thyroid lesions classified as TR4 (moderately suspicious) are listed below: > 1.0 cm. Follow-up ultrasound in 1, 2, 3, and 5 years. > 1.5 cm. FNA. J. Am Anais Radiol 2017;14:[id number]. Electronically authenticated by: ENIO MOHAN Date: 2021-06-21 12:10 Normal [facility] US CAROTID ART BILon -24-2 022 US CAROTID ART ANDREAS EXAMINATION: US [...] JERONIMO CASTLE Date: 2021-06-08 13:16 Normal [facility] Blood Occult Stool Screen #1 on 10-13-2019 Date, Stool #1 [id number] [facility] [place] [place] Date, Stool [...] 2019 Occult Blood 1 Negative Normal NEG [facility] Comment on above: Performed By: #### O BN #### [facility] [address] [place] [address] Talent Development Director: Eris Worthy MD Specimen 1 Date Normal [facility] Comment on above: Performed By: #### O BN #### [facility] [address] [place] [address] Talent Development Director: Eris Worthy MD Specimen 1 Time 1200 Normal [facility] Comment on above: Performed By: #### O BN #### [facility] [address] [place] [address] Talent Development Director: Eris Worthy MD Specimen 2 Date NOT REPORTED Normal [facility] Comment on above: Performed By: #### O BN #### [facility] [address] [place] [address] Talent Development Director: Eris Worthy MD Specimen 2 Time NOT REPORTED Normal [facility] Comment on above: Performed By: #### O BN #### [facility] [address] [place], [place] [id number] Talent Development Director: Eris Worthy MD Specimen 3 Date NOT REPORTED Normal [facility] Comment on above: Performed By: #### O BN #### [facility] [address] [place], [place] [id number] Talent Development Director: Eris Worthy MD Specimen 3 Time NOT REPORTED Normal [facility] Comment on above: Performed By: #### O BN #### [facility] [address] [place], [place] [id number] Talent Development Director: Eris Worthy MD Occult Blood 2 NOT REPORTED Normal NEG [facility] Comment on above: Performed By: #### O BN #### [facility] [address] [place] [address] Talent Development Director: Eris Worthy MD Occult Blood 3 NOT REPORTED Normal NEG [facility] Comment on above: Performed By: #### O BN #### [facility] [address] [place] [place] [address] Talent Development Director: Eris Worthy MD Free Thyroxine Indexon 10-07 FTI Ratio 2.0 ug/dL Normal 1.4-3.1 [facility] Comment on above: Performed By: #### F TI, FE #### [address] [id number] Talent Development Director: Otoniel Ash MD #### TSH, LIPR, CP, GLYHGB, CDP #### [facility] [address] [place] [place] [address] Talent Development Director: Eris Worthy MD T4 [Mass/Vol] 29.74 % Normal 22.5-37.0 [facility] Comment on above: Performed By: #### F TI, FE #### [address] [id number] Talent Development Director: Otoniel Ash MD #### TSH, LIPR, CP, GLYHGB, CDP #### [address] [place] [address] Talent Development Director: Eris Worthy MD T4 [Mass/Vol] 6.6 ug/dL Normal 4.5-10.9 [facility] Comment on above: Performed By: #### F TI, FE #### [address] [address] Talent Development Director: Otoniel Ash MD #### TSH, LIPR, CP, GLYHGB, CDP #### [address] [place] [address] Talent Development Director: Eris Worthy MD Ironon 10-08-2019 Iron [Mass/Vol] 73 ug/dL Normal 37-145 [facility] Comment on above: Performed By: #### F TI, FE #### [address] [address] Talent Development Director: Otoniel Ash MD #### TSH, LIPR, CP, GLYHGB, CDP #### [facility] [address] [place] [place] [address] Talent Development Director: Eris Worthy MD T3 uptake and FTIon 10-08-19 Free Thyroxine Index 2 ug/dL 1.4 - 3.1 ug/dL [place], [place] T4 [Mass/Vol] 29.74 % 22.5 - 37 % [place], [place] T4, Total 6.6 ug/dL 4.5 - 10.9 ug/dL [place], [place] CBC Auto Differentialon 09-16-2019 Basophils (Bld) [#/Vol] 0.07 10*3/uL [place] Basophils/100 WBC (Bld) 1 % 0 - 2 % [place] Differential Type NOT REPORTED [place] Eosinophils (Bld) [#/Vol] 0.06 10*3/uL [place] Eosinophils/100 WBC (Bld) 1 % 1 - 4 % [place] Erythrocyte distribution width (RBC) [Ratio] 14.5 % High 11.8 - 14.4 % [place] Hematocrit (Bld) [Volume fraction] 42.4 % 36.3 - 47.1 % [place] Hemoglobin (Bld) [Mass/Vol] 13.2 g/dL 11.9 - 15.1 g/dL [place] Immature granulocytes (Bld) [#/Vol] 10*3/uL [place] Immature granulocytes (Bld) [#/Vol] 0 % 0 [place] Interpretation and review of laboratory results Abnormal [place] Lymphocytes (Bld) [#/Vol] 1.87 10*3/uL [place] Lymphocytes/100 WBC (Bld) 33 % 24 - 43 % [place] MCH (RBC) [Entitic mass] 26.1 pg 25.2 - 33.5 pg [place] MCHC (RBC) [Mass/Vol] 31.1 g/dL 28.4 - 34.8 g/dL [place] MCV (RBC) [Entitic vol] 84.0 fL 82.6 - 102.9 fL [place] Monocytes (Bld) [#/Vol] 0.45 10*3/uL [place] Monocytes/100 WBC (Bld) 8 % 3 - 12 % [place] Platelet mean volume (Bld) [Entitic vol] 10.1 fL 8.1 - 13.5 fL [place] Platelets (Bld) [#/Vol] 270 10*3/uL [place] Platelets (Bld) [#/Vol] NOT REPORTED [place] RBC (Bld) [#/Vol] 5.05 10*6/uL 3.95 - 5.1 1 m/uL [place] RBC morphology finding Nom (Bld) NOT REPORTED [place] Segmented neutrophils/100 WBC (Bld) 57 % 36 - 65 % [place] Segs Absolute 3.17 [place] WBC (Bld) [#/Vol] 5.6 10*3/uL [place] WBC (Bld) [#/Vol] 0.0 10*3/uL 0.0 per 10 0 WBC [place] WBC Morphology NOT REPORTED [place], [place] CBC with Diffon 10-07-2019 Abs. Basophil 0.07 k/uL Normal 0.00-0.20 [facility] Comment on above: Performed By: #### F TI, FE #### [facility] [address] [place] [address] Talent Development Director: Otoniel Ash MD #### TSH, LIPR, CP, GLYHGB, CDP #### [facility] [address] [place] [address] Talent Development Director: Eris Worthy MD Abs.Imm.Granulocyte <0.03 Normal 0.00-0.30 [facility] Comment on above: Performed By: #### F TI, FE #### [address] [id number] Talent Development Director: Otoniel Ash MD #### TSH, LIPR, CP, GLYHGB, CDP #### [facility] [address] [place] [address] Dr. [place] [id number] Talent Development Director: Eris Worthy MD Abs.Neutrophil (Seg) 3.17 k/uL Normal 1.50-8.10 [facility] Comment on above: Performed By: #### F TI, FE #### [address] [id number] Talent Development Director: Otoniel Ash MD #### TSH, LIPR, CP, GLYHGB, CDP #### [address] [place] [address] Talent Development Director: Eris Worthy MD Basophils/100 WBC (Bld) 1 % Normal 0-2 [facility] Comment on above: Performed By: #### F TI, FE #### [address] [id number] Talent Development Director: Otoniel Ash MD #### TSH, LIPR, CP, GLYHGB, CDP #### [address] [place] [address] Talent Development Director: Eris Worthy MD Eosinophils (Bld) [#/Vol] 0.06 10*3/uL Normal 0.00-0.44 [facility] Comment on above: Performed By: #### F TI, FE #### [address] [id number] Talent Development Director: Otoniel Ash MD #### TSH, LIPR, CP, GLYHGB, CDP #### [facility] [address] [place] [address] Dr. [place] [address]83 Talent Development Director: Eris Worthy MD Eosinophils/100 WBC (Bld) 1 % Normal 1-4 [facility] Comment on above: Performed By: #### F TI, FE #### [address] [address] Talent Development Director: Otoniel Ash MD #### TSH, LIPR, CP, GLYHGB, CDP #### [address] [place] [address]83 Talent Development Director: Eris Worthy MD Erythrocyte distribution width (RBC) [Ratio] 14.5 % High 11.8-14.4 [facility] Comment on above: Performed By: #### F TI, FE #### [address] [address] Talent Development Director: Otoniel Ash MD #### TSH, LIPR, CP, GLYHGB, CDP #### [address] [place] [address]83 Talent Development Director: Eris Worthy MD Hematocrit (Bld) [Volume fraction] 42.4 % Normal 36.3-47.1 [facility] Comment on above: Performed By: #### F TI, FE #### [address] [address] Talent Development Director: Otoniel Ash MD #### TSH, LIPR, CP, GLYHGB, CDP #### [address] [place] [address]83 Talent Development Director: Eris Worthy MD Hemoglobin (Bld) [Mass/Vol] 13.2 g/dL Normal 11.9-15.1 [facility] Comment on above: Performed By: #### F TI, FE #### [address] [id number] Talent Development Director: Otoniel Ash MD #### TSH, LIPR, CP, GLYHGB, CDP #### [address] [place] [address]83 Talent Development Director: Eris Worthy MD Immature granulocytes (Bld) [#/Vol] 0 % Normal 0 [facility] Comment on above: Performed By: #### F TI, FE #### [address] [id number] Talent Development Director: Otoniel Ash MD #### TSH, LIPR, CP, GLYHGB, CDP #### [address] [place] [address]83 Talent Development Director: Eris Worthy MD Lymphocytes (Bld) [#/Vol] 1.87 10*3/uL Normal 1.10-3.70 [facility] Comment on above: Performed By: #### F HUMBERTO, FE #### [place] [id number] Talent Development Director: Otoniel Ash MD #### TSH, LIPR, CP, GLYHGB, CDP #### [address] [place] [address]83 Talent Development Director: Eris Worthy MD Lymphocytes/100 WBC (Bld) 33 % Normal 24-43 [facility] Comment on above: Performed By: #### F HUMBERTO, FE #### [place] [address] Talent Development Director: Otoniel Ash MD #### TSH, LIPR, CP, GLYHGB, CDP #### [address] [place] [address] Talent Development Director: Eris Worthy MD MCH (RBC) [Entitic mass] 26.1 pg Normal 25.2-33.5 [facility] Comment on above: Performed By: #### F TI, FE #### [place] [id number] Talent Development Director: Otoniel Ash MD #### TSH, LIPR, CP, GLYHGB, CDP #### [address] [place] [address]83 Talent Development Director: Eris Worthy MD MCHC (RBC) [Mass/Vol] 31.1 g/dL Normal 28.4-34.8 [facility] Comment on above: Performed By: #### F TI, FE #### [address] [id number] Talent Development Director: Otoniel Ash MD #### TSH, LIPR, CP, GLYHGB, CDP #### [address] [place] [address]83 Talent Development Director: Eris Worthy MD MCV (RBC) [Entitic vol] 84.0 fL Normal 82.6-102.9 [facility] Comment on above: Performed By: #### F TI, FE #### [address] [id number] Talent Development Director: Otoniel Ash MD #### TSH, LIPR, CP, GLYHGB, CDP #### [address] [place] [address]83 Talent Development Director: Eris Worthy MD Monocytes (Bld) [#/Vol] 0.45 10*3/uL Normal 0.10-1.20 [facility] Comment on above: Performed By: #### F TI, FE #### [address] [address] Talent Development Director: Otoniel Ash MD #### TSH, LIPR, CP, GLYHGB, CDP #### [address] [place] [address]1883 Talent Development Director: Eris Worthy MD Monocytes/100 WBC (Bld) 8 % Normal 3-12 [facility] Comment on above: Performed By: #### F TI, FE #### [address] [id number] Talent Development Director: Otoniel Ash MD #### TSH, LIPR, CP, GLYHGB, CDP #### [facility] [address] [place] [address] Talent Development Director: Eris Worthy MD Neutrophil (Seg) 57 % Normal 36-65 [facility] Comment on above: Performed By: #### F TI, FE #### [address] [id number] Talent Development Director: Otoniel Ash MD #### TSH, LIPR, CP, GLYHGB, CDP #### [facility] [address] [place], [place] 1087383 Talent Development Director: Eris Worthy MD NRBC Automated 0.0 per 100 WBC Normal 0.0 [facility] Comment on above: Performed By: #### F TI, FE #### [address] [address] Talent Development Director: Otoniel Ash MD #### TSH, LIPR, CP, GLYHGB, CDP #### [facility] [address] [place], [place] 729[address] Talent Development Director: Eris Worthy MD Platelet mean volume (Bld) [Entitic vol] 10.1 fL Normal 8.1-13.5 [facility] Comment on above: Performed By: #### F TI, FE #### [address] [address] Talent Development Director: Otoniel Ash MD #### TSH, LIPR, CP, GLYHGB, CDP #### [facility] [address] [place] [place] [address] Talent Development Director: Eris Worthy MD Platelets (Bld) [#/Vol] 270 10*3/uL Normal 138-453 [facility] Comment on above: Performed By: #### F TI, FE #### [address] [id number] Talent Development Director: Otoniel Ash MD #### TSH, LIPR, CP, GLYHGB, CDP #### [address] [place] [address] Talent Development Director: Eris Worthy MD RBC (Bld) [#/Vol] 5.05 10*6/uL Normal 3.95-5.11 [facility] Comment on above: Performed By: #### F TI, FE #### [address] [address] Talent Development Director: Otoniel Ash MD #### TSH, LIPR, CP, GLYHGB, CDP #### [address] [place] [address]1883 Talent Development Director: Eris Worthy MD WBC (Bld) [#/Vol] 5.6 10*3/uL Normal 3.5-11.3 [facility] Comment on above: Performed By: #### F TI, FE #### [address] [address] Talent Development Director: Otoniel Ash MD #### TSH, LIPR, CP, GLYHGB, CDP #### [address] [place] [address]1883 Talent Development Director: Eris Worthy MD Auto Diff Performed NOT REPORTED Normal [facility] Comment on above: Performed By: #### F TI, FE #### [address] [address] Talent Development Director: Otoniel Ash MD #### TSH, LIPR, CP, GLYHGB, CDP #### [address] [place] [address]1883 Talent Development Director: Eris Worthy MD Platelets (Bld) [#/Vol] NOT REPORTED Normal [facility] Comment on above: Performed By: #### F TI, FE #### [address] [id number] Talent Development Director: Otoniel Ash MD #### TSH, LIPR, CP, GLYHGB, CDP #### [address] [place] [address] Talent Development Director: Eris Worthy MD RBC morphology finding Nom (Bld) NOT REPORTED Normal [facility] Comment on above: Performed By: #### F TI, FE #### [address] [id number] Talent Development Director: Otoniel Ash MD #### TSH, LIPR, CP, GLYHGB, CDP #### [address] [place] [address] Talent Development Director: Eris Worthy MD WBC Morphology NOT REPORTED Normal [facility] Comment on above: Performed By: #### F TI, FE #### [address] [id number] Talent Development Director: Otoniel Ash MD #### TSH, LIPR, CP, GLYHGB, CDP #### [address] [place] [address] Talent Development Director: Eris Worthy MD Comp Metabolic Profon 2019 (cont.) Normal [facility] Comment on above: Result Comment: Aver age GFR for 60-69 years old: 85 mL/min/1.73sq m Chronic Kidney Disease: <60 mL/min/1.73sq m Kidney failure: <15 mL/min/1.73sq m eGFR calculated using average adult body mass. Additional eGFR calculator available at: http://www.[employer].com/multiple_crcl_2012.htm Performed By: #### F TI, FE #### [address] [address] Talent Development Director: Otoniel Ash MD #### TSH, LIPR, CP, GLYHGB, CDP #### [address] [place], [place] 0377283 Talent Development Director: Eris Worthy MD Albumin [Mass/Vol] 4.5 g/dL Normal 3.5-5.2 [facility] Comment on above: Performed By: #### F TI, FE #### [address] [id number] Talent Development Director: Otoniel Ash MD #### TSH, LIPR, CP, GLYHGB, CDP #### [address] [place] [id number] Talent Development Director: Eris Worthy MD Albumin/Globulin [Mass ratio] 1.4 {ratio} Normal 1.0-2.5 [facility] Comment on above: Performed By: #### F TI, FE #### [address] [id number] Talent Development Director: Otoniel Ash MD #### TSH, LIPR, CP, GLYHGB, CDP #### [address] [place], [place] [id number] Talent Development Director: Eris Worthy MD Alkaline Phos 94 U/L Normal 35-104 [facility] Comment on above: Performed By: #### F TI, FE #### [address] [address] Talent Development Director: Otoniel Ash MD #### TSH, LIPR, CP, GLYHGB, CDP #### [address] [place], [place] [id number] Talent Development Director: Eris Worthy MD ALT [Catalytic activity/Vol] 10 U/L Normal 5-33 [facility] [facility] Comment on above: Performed By: #### F TI, FE #### [address] [address] Talent Development Director: Otoniel Ash MD #### TSH, LIPR, CP, GLYHGB, CDP #### [address] [place], [place] [id number] Talent Development Director: Eris Worthy MD Anion gap [Moles/Vol] 12 mmol/L Normal 9-17 [facility] Comment on above: Performed By: #### F TI, FE #### [address] [id number] Talent Development Director: Otoniel Ash MD #### TSH, LIPR, CP, GLYHGB, CDP #### [address] [place], [place] [id number] Talent Development Director: Eris Worthy MD AST [Catalytic activity/Vol] 40 U/L High <32 [facility] Comment on above: Performed By: #### F TI, FE #### [address] [address] Talent Development Director: Otoniel Ash MD #### TSH, LIPR, CP, GLYHGB, CDP #### [address] [place], [place] [id number] Talent Development Director: Eris Worthy MD Bilirubin Ql (U) 0.27 mg/dL Low 0.3-1.2 [facility] Comment on above: Performed By: #### F TI, FE #### [address] [address] Talent Development Director: Otoniel Ash MD #### TSH, LIPR, CP, GLYHGB, CDP #### [address] [place], [place] [id number] Talent Development Director: Eris Worthy MD BUN/CRE Ratio 22 High 9-20 [facility] Comment on above: Performed By: #### F TI, FE #### [address] [address] Talent Development Director: Otoniel Ash MD #### TSH, LIPR, CP, GLYHGB, CDP #### [address] [place] [address] Talent Development Director: Eris Worthy MD Calcium [Mass/Vol] 10.0 mg/dL Normal 8.6-10.4 [facility] Comment on above: Performed By: #### F TI, FE #### [address] [id number] Talent Development Director: Otoniel Ash MD #### TSH, LIPR, CP, GLYHGB, CDP #### [address] [place] [address] Talent Development Director: Eris Worthy MD Chloride [Moles/Vol] 105 mmol/L Normal 98-107 [facility] Comment on above: Performed By: #### F TI, FE #### [address] [id number] Talent Development Director: Otoniel Ash MD #### TSH, LIPR, CP, GLYHGB, CDP #### [address] [place] [address] Talent Development Director: Eris Worthy MD CO2 [Moles/Vol] 21 mmol/L Normal 20-31 [facility] Comment on above: Performed By: #### F TI, FE #### [address] [id number] Talent Development Director: Otoniel Ash MD #### TSH, LIPR, CP, GLYHGB, CDP #### [address] [place] [address] Talent Development Director: Eris Worthy MD Creatinine [Mass/Vol] 0.79 mg/dL Normal 0.50-0.90 [facility] Comment on above: Performed By: #### F TI, FE #### [address] [id number] Talent Development Director: Otoniel Ash MD #### TSH, LIPR, CP, GLYHGB, CDP #### [facility] [address] [place], [place] [id number] Talent Development Director: Eris Worthy MD GFR, Amer >60 Normal >60 [facility] Comment on above: Performed By: #### F TI, FE #### [address] [place] [address] Talent Development Director: Otoniel Ash MD #### TSH, LIPR, CP, GLYHGB, CDP #### [facility] [address] [place] [address] Dr. [place], [place] [id number] Talent Development Director: Eris Worthy MD GFR,non Amer >60 Normal >60 [facility] Comment on above: Performed By: #### F TI, FE #### [address] [id number] Talent Development Director: Otoniel Ash MD #### TSH, LIPR, CP, GLYHGB, CDP #### [address] [place], [place] [id number] Talent Development Director: Eris Worthy MD Glucose [Mass/Vol] 99 mg/dL Normal 70-99 [facility] Comment on above: Performed By: #### F TI, FE #### [address] [address] Talent Development Director: Otoniel Ash MD #### TSH, LIPR, CP, GLYHGB, CDP #### [address] [place], [place] 5280583 Talent Development Director: Eris Worthy MD Potassium [Moles/Vol] 4.1 mmol/L Normal 3.7-5.3 [facility] Comment on above: Performed By: #### F TI, FE #### [address] 1010008 Talent Development Director: Otoniel Ash MD #### TSH, LIPR, CP, GLYHGB, CDP #### [address] [place], [place] [id number] Talent Development Director: Eris Worthy MD Protein [Mass/Vol] 7.7 g/dL Normal 6.4-8.3 [facility] Comment on above: Performed By: #### F TI, FE #### [address] [id number] Talent Development Director: Otoniel Ash MD #### TSH, LIPR, CP, GLYHGB, CDP #### [address] [place], [place] 7291083 Talent Development Director: Eris Worthy MD Sodium [Moles/Vol] 138 mmol/L Normal 135-144 [facility] Comment on above: Performed By: #### F TI, FE #### [address] [id number] Talent Development Director: Otoniel Ash MD #### TSH, LIPR, CP, GLYHGB, CDP #### [address] [place] [address] Talent Development Director: Eris Worthy MD Staging: Normal [facility] Comment on above: Result Comment: Stag e 1: Some kidney damage normal GFR Stage 2: Mild kidney damage GFR 60-89 Stage 3: Moderate kidney damage GFR 30-59 Stage 4: Severe kidney damage GFR 15-29 Stage 5: Severe kidney damage GFR <15 ESRD - chronic treatment by dialysis or transplant Performed By: #### F TI, FE #### [address] [id number] Talent Development Director: Otoniel Ash MD #### TSH, LIPR, CP, GLYHGB, CDP #### [address] [place] [address] Talent Development Director: Eris Worthy MD Urea nitrogen [Mass/Vol] 17 mg/dL Normal 8-23 [facility] Comment on above: Performed By: #### F TI, FE #### [facility] [address] [place] [address] Talent Development Director: Otoniel Ash MD #### TSH, LIPR, CP, GLYHGB, CDP #### [facility] [address] [place] [place] [address] Talent Development Director: Eris Worthy MD Comprehensive Metabolic Pane romy 10-07-2019 Albumin [Mass/Vol] 4.5 g/dL 3.5 - 5.2 g/dL [place], [place] Albumin/Globulin [Mass ratio] 1.4 {ratio} [place] ALP [Catalytic activity/Vol] 94 U/L 35 - 104 U/L [place] ALT [Catalytic activity/Vol] 10 U/L 5 - 33 U/L [place] Anion gap [Moles/Vol] 12 mmol/L 9 - 17 mmol/L [place] AST [Catalytic activity/Vol] 40 U/L High <32 [place] Bilirubin Ql (U) 0.27 mg/dL Low 0.3 - 1.2 mg/dL [place] Bun/Cre Ratio 22 High [place] Calcium [Mass/Vol] 10.0 mg/dL 8.6 - 10. 4 mg/dL [place] Chloride [Moles/Vol] 105 mmol/L 98 - 107 mmol/L [place] CO2 [Moles/Vol] 21 mmol/L 20 - 31 mmol/L [place] Creatinine [Mass/Vol] 0.79 mg/dL 0.5 - 0.9 mg/dL [place] GFR >60 >60 mL/min [place] GFR Non- >60 >60 mL/min [place] Glucose [Mass/Vol] 99 mg/dL 70 - 99 mg/dL [place] Potassium [Moles/Vol] 4.1 mmol/L 3.7 - 5.3 mmol/L [place] Protein [Mass/Vol] 7.7 g/dL 6.4 - 8.3 g/dL [place] Sodium [Moles/Vol] 138 mmol/L 135 - 144 mmol/L [place] Urea nitrogen [Mass/Vol] 17 mg/dL 8 - 23 mg/dL [place] Hemoglobin A1Con 10-07-2019 HbA1c (Bld) [Mass fraction] 5.3 % Normal 4.8-5.9 [facility] Comment on above: Performed By: #### F TI, FE #### [facility] [address] [place] [address] Talent Development Director: Otoniel Ash MD #### TSH, LIPR, CP, GLYHGB, CDP #### [facility] [address] [place] [place] [address] Talent Development Director: Eris Worthy MD HbA1c (Bld) [Mass fraction] 105 mg/dL Normal [facility] Comment on above: Result Comment: The ADA and AACC recommend providing the estimated average glucose result to permit better patient understanding of their HBA1c result. Performed By: #### F TI, FE #### [facility] [address] [place] [address] Talent Development Director: Otoniel Ash MD #### TSH, LIPR, CP, GLYHGB, CDP #### [facility] [address] [place] [place] [address] Talent Development Director: Eris Worthy MD Glucose [Mass/Vol] 105 mg/dL [place] Comment on above: The ADA and AACC rec ommend providing the estimated average glucose result to permit better patient understanding of their HBA1c result. HbA1c (Bld) [Mass fraction] 5.3 % 4.8 - 5.9 % [place] Ironon 10-07-2019 Iron [Mass/Vol] 73 ug/dL 37 - 145 ug/dL [place] Lipid Panelon 10-07-2019 Cholesterol [Mass/Vol] 229 mg/dL High <200 [place] Comment on above: Cholesterol Guidelines: <200 Desirable 200-240 Borderline >240 Undesirable Cholesterol in HDL [Mass/Vol] 67 mg/dL >40 [place] Comment on above: HDL Guidelines: <40 Undesirable 40-59 Borderline >59 Desirable Cholesterol in LDL [Mass/Vol] 127 mg/dL 0 - 130 mg/dL [place] Comment on above: LDL Guidelines: <100 Desirable 100-129 Near to/above Desirable 130-159 Borderline >159 Undesirable Direct (measured) LDL and calculated LDL are not interchangeable tests. Cholesterol in VLDL [Mass/Vol] NOT REPORTED High 1 - 30 mg/dL [place] Cholesterol.total/C holesterol in HDL [Mass ratio] 3.4 {ratio} <5 [place] Triglyceride [Mass/Vol] 175 mg/dL High <150 [place] Comment on above: Triglyceride Guidelines: <150 Desirable 150-199 Borderline 200-499 High >499 Very high Based on AHA Guidelines for fasting triglyceride, December 2011. Lipid Profileon 10-07-2019 Cholesterol [Mass/Vol] 229 mg/dL High <200 [facility] Comment on above: Result Comment: Cholesterol Guidelines: <200 Desirable 200-240 Borderline >240 Undesirable Performed By: #### F TI, FE #### [address] [id number] Talent Development Director: Otoniel Ash MD #### TSH, LIPR, CP, GLYHGB, CDP #### [facility] [address] [place] [address] [place] [address] Talent Development Director: Eris Worthy MD Cholesterol in HDL [Mass/Vol] 67 mg/dL Normal >40 [facility] Comment on above: Result Comment: HDL Guidelines: <40 Undesirable 40-59 Borderline >59 Desirable Performed By: #### F TI, FE #### [address] [id number] Talent Development Director: Otoniel Ash MD #### TSH, LIPR, CP, GLYHGB, CDP #### [facility] [address] [place] [address] [place] [address] Talent Development Director: Eris Worthy MD Cholesterol in LDL [Mass/Vol] 127 mg/dL Normal 0-130 [facility] Comment on above: Result Comment: LDL Guidelines: <100 Desirable 100-129 Near to/above Desirable 130-159 Borderline >159 Undesirable Direct (measured) LDL and calculated LDL are not interchangeable tests. Performed By: #### F TI, FE #### [address] [address] Talent Development Director: Otoniel Ash MD #### TSH, LIPR, CP, GLYHGB, CDP #### [facility] [address] [place] [address] Dr. [place], [place] [id number] Talent Development Director: Eris Worthy MD Cholesterol.total/C holesterol in HDL [Mass ratio] 3.4 {ratio} Normal <5 [facility] Comment on above: Performed By: #### F TI, FE #### [address] [address] Talent Development Director: Otoniel Ash MD #### TSH, LIPR, CP, GLYHGB, CDP #### [address] [place] [address] Talent Development Director: Eris Worthy MD Triglyceride [Mass/Vol] 175 mg/dL High <150 [facility] Comment on above: Result Comment: Triglyceride Guidelines: <150 Desirable 150-199 Borderline 200-499 High >499 Very high Based on AHA Guidelines for fasting triglyceride, December 2011. Performed By: #### F TI, FE #### [address] [address] Talent Development Director: Otoniel Ash MD #### TSH, LIPR, CP, GLYHGB, CDP #### [address] [place] [address] Talent Development Director: Eris Worthy MD Cholesterol in VLDL [Mass/Vol] NOT REPORTED Normal 1-30 [facility] Comment on above: Performed By: #### F TI, FE #### [address] [address] Talent Development Director: Otoniel Ash MD #### TSH, LIPR, CP, GLYHGB, CDP #### [facility] [address] [place] [place] [address] Talent Development Director: Eris Worthy MD Metabolic Panelon 10-07-2019 GFR/1.73 sq M predicted among non-blacks MDRD (S/P/Bld) [Vol rate/Area] [place] Comment on above: Stage 1: Some [...] body mass. Additional eGFR calculator available at: http://www.ProfitSee/multiple_crcl_2012.htm Otheron 10-07-2019 Interpretation and review of laboratory results Abnormal [place] TSH without Reflexon 020 TSH Qn 1.12 m[IU]/L [place], [place] Thyroid Stim. Horm.on 2019 TSH Qn 1.12 m[IU]/L Normal 0.30-5.00 [facility] Comment on above: Performed By: #### F TI, FE #### [facility] [address] [place] [address] Talent Development Director: Otoniel Ash MD #### TSH, LIPR, CP, GLYHGB, CDP #### [facility] [address] [place] [place] [address] Talent Development Director: Eris Worthy MD Operative Reporton 8 Operative Report MR#: [id number] [facility] Pt. Name: Xena Ewing Room #: 0C Discharge Date: Birthdate: 1955 OPERATIVE REPORTDATE OF SURGERY: 03/17/2018SURGEON: Bart Holcomb M.D.CULTURIST: Carlton Galicia M.D.PREOPERATIVE DIAGNOSIS: Right recurrent de [...] the procedure and was otherwise immediatelyavailable for assistance.Alin y Signed by:Bart Holcomb M.D. 03/17/2018 04:51 P Bart Holcomb M.D. I was present for the entire procedure. Date Dict: 03/17/2018/10:00 A/EMETERIO Andinoate Trans: 03/17/2018 11:55 A/[id number] cc: Anamika Valle M.D. [address] [facility] [phone] Normal [facility] POC GLUCOSE LABon 03-17-2018 Glucose mass conc 89 mg/dL Normal 70-100 [facility] Comment on above: Performed By: #### 8 5499 ####[facility] Vital Signs Date Time Vital Sign Value Performing Clinician Morena sahu 10-23-2022 11:13040 Body height 165.1 cm Claire Morales MD Work Phone: [facility] 10-23-2022 11:13040 Body weight 73.07 kg Claire Morales MD Work Phone: [facility] 10-23-2022 11:13-0400 Diastolic blood pressure 71 mm[Hg] Claire Morales MD Work Phone: [facility] 10-23-2022 11:13-0400 Heart rate 77 /min Claire Morales MD Work Phone: [facility] 10-23-2022 11:13040 Systolic blood pressure 125 mm[Hg] Claire Morales MD Work Phone: [facility] Encounters Encounter Date Encounter Type Care Provider Facility Start: 07-31-2023 End: 07-31-2023 ambulatory MONIE S LIEBENTHAL Not Available Start: 07-03-2023 End: 07-03-2023 ambulatory MONIE RENEEBENTHAL Not Available Start: 05-29-2023 End: 05-29-2023 ambulatory DESI COKER Not Available Start: 05-09-2023 End: 05-09-2023 ambulatory MONIE RENEEBENTHAL Not Available Start: 03-28-2023 End: 03-28-2023 ambulatory MONIE COYLENTHAL Not Available Start: 01-30-2023 End: 01-30-2023 ambulatory MONIE COYLENTHAL Not Available Start: 12-24-2022 End: 12-24-2022 ambulatory Anamika Valle Facility:[facility] Start: 12-24-2022 End: 12-24-2022 ambulatory MD Anamika Valle Work Phone: [facility] Work Phone: Start: 12-24-2022 End: 12-24-2022 Patient encounter procedure MD Anamika Valle Work Phone: [facility] Work Phone: Start: 10-23-2022 End: 10-24-2022 ambulatory ANAMIKA VALLE Facility:[facility] Start: 10-23-2022 End: 10-23-2022 Patient encounter procedure Claire Morales MD Work Phone: General Surgery Comment on above: Ventral hernia witho ut obstruction or gangrene (Primary Dx) Start: 09-14-2022 ambulatory Rubén MANUEL Facility :[facility] Start: 04-19-2022 End: 04-19-2022 ambulatory DESTINI DOOLEY Facility:[facility] Start: 01-05-2022 End: 01-06-[address] ANAMIKA VALLE Facility:[facility] Start: 12-21-2021 End: 12-21-2021 ambulatory MD Anamika Valle Work Phone: [facility] Work Phone: Start: 12-21-2021 End: 12-21-2021 Patient encounter procedure MD Anamika Valle [facility] Start: 11-09-2021 End: 11-10-[address] ANAMIKA VALLE Facility:[facility] Start: 08-31-2021 End: 08-31-[address] ANAMIKA VALLE Facility:[facility] Start: 06-29-2021 End: 06-29-[address] ANAMIKA VALLE Facility:[facility] Start: 06-21-2021 End: 06-22-[address] ANAMIKA VALLE Facility:[facility] Start: 06-08-2021 End: 06-09-[address] ANAMIKA VALLE Facility:[facility] Start: 10-13-2019 End: 10-14-2019 Patient encounter procedure [facility] Start: 10-13-2019 End: 10-13-2019 Subsequent hospital visit by physician Anamika Valle [facility] Start: 10-07-2019 End: 10-08-2019 Patient encounter procedure [facility] Start: 10-07-2019 End: 10-07-2019 Subsequent hospital visit by physician [facility] Drawing Room [facility] Comment on above: Arrived Start: 03-17-2018 End: 03-18-2018 Patient encounter procedure ABDULAZIM JI Facility:[facility] Start: 02-14-2018 End: 02-15-2018 Patient encounter procedure DEFAULT PHYSICIAN Facility:[facility] Procedures Date Procedure Procedure Detail [...] Assay of thyroid stimulating hormone tsh ANAMIKA VALLE Start: 10-07-2019 Blood count complete auto&auto difrntl wbc ANAMIKA VALLE Start: 10-07-2019 Comprehensive metabo lic panel ANAMIKA VALLE Start: 10-07-2019 Hemoglobin glycosylated a1c ANAMIKA VALLE Start: 10-07-2019 Lipid panel ANAMIKA Slater Start: 10-07-2019 Thyroid horm uptk/th yroid hormone binding ratio ANAMIKA VALLE Start: 10-07-2019 Assay of iron Anamika Valle Work Phone: Start: 10-07-2019 Assay of thyroid [...] - Td) DTaP/Tdap/Td vaccine (2 - Td) [place] Start: 10-06-2024 Lipid panel Lipid screen [place] Start: 11-16-2022 Influenza vaccination INFLUENZA (#1) [facility] Start: 04-21-2022 COVID-19 VACCINE (5 - Pfizer series) COVID-19 VACCINE (5 - Pfizer series) [facility] Start: 03-18-2022 ADVANCE DIRECTIVE DISCUSSION ADVANCE DIRECTIVE DISCUSSION [facility] Start: 03-18-2022 DEPRESSION ASSESSMENT DEPRESSION ASSESSMENT [facility] Start: 2021 BONE DENSITY BONE DENSITY [facility] Start: 11-17-2019 Influenza vaccination Flu vaccine (#1) [place] Start: 2006 Influenza vaccination LUNG CANCER SCREENING [facility] Start: 2006 Screening for malignant neoplasm of breast Breast cancer screen [place] Start: 2006 Screening for malignant neoplasm of colon Colon cancer screen colonoscopy [place] Start: 2006 Shingles Vaccine (1 of 2) Shingles Vaccine (1 of 2) [place] Start: 2006 SHINGRIX VACCINE (1 of 2) SHINGRIX VACCINE (1 of 2) [facility] Start: 2001 COLOGUARD (FIT-DNA) COLOGUARD (FIT-DNA) [facility] Start: 2001 Colonoscopy COLONOSCOPY [facility] Start: 2001 COLORECTAL CANCER SCREENING COLORECTAL CANCER SCREENING [facility] Start: [address] COLONOGRAPHY [facility] Start: 2001 DIABETES SCREEN DIABETES SCREEN [facility] Start: 2001 FECAL OCCULT BLOOD FECAL OCCULT BLOOD [facility] Start: 2001 LIPID SCREEN LIPID SCREEN [facility] Start: 2001 SIGMOIDOSCOPY SIGMOIDOSCOPY [facility] Start: 1996 Lipid panel Lipid screen [place] Start: 1996 Mammography MAMMOGRAM [facility] Start: 1977 Screening for malignant neoplasm of cervix Cervical cancer screen [place] Start: 12-12-1975 Urine microalbumin profile DTAP,TDAP,TD (1 - Tdap) [facility] Start: 1974 HEPATITIS C SCREENING HEPATITIS C SCREENING [facility] Start: 1974 HIV SCREENING HIV SCREENING [facility] Start: 12-12-1971 HIV screening HIV screen [place] Start: 1962 PNEUMOCOCCAL: 65+ (1 - PCV) PNEUMOCOCCAL: 65+ (1 - PCV) [facility] Start: 1955 Hepatitis C screening Hepatitis C screen [place] Immunizations Immunization Date Immunization Notes Care Provider Fa regis 06-01-2018 tetanus toxoid, redu tu diphtheria toxoid, and acellular pertussis vaccine, adsorbed M[facility] [place] Payers Date Payer Category Payer Medicare [id number] 2022 Self-pay [id number] 2022 Medicare HUMANA MEDICARE HUMANA GOLD PLUS [id number] 2022-Present [phone] [address] [address] [place] [address] HMO [id number] 2019 Unknown [id number] 2019 Unknown [employer] CHUCK - EXCHANGE [id number] 2019-Present [phone] [address] [place] [address] [id number] 1959 Medicare [id number] 1959 Medicare [id number] 1959 Private Health Insurance [facility] [id number] 1955 Unknown [id number] 2.16.840.1.964434.3.579.2.6 47 1956 Unknown [id number] 2.16.840.1.599353.3.579.2.6 47 1956 Unknown [id number] 2.16.840.1.575158.3.579.2.1 73 1955 Unknown [id number] 2.16.840.1.955751.3.579.2.1 73 1956 Unknown [id number] 2.16.840.1.181595.3.579.2.5 93 1956 Unknown [id number] 2.16.840.1.084251.3.579.2.5 93 1956 Unknown [id number] 2.16.840.1.954963.3.579.2.5 93 1956 Unknown [id number] 2.16.840.1.984623.3.579.2.5 93 1956 Unknown [id number] 2.16.840.1.848538.3.579.2.5 93 1956 Unknown [id number] 2.16.840.1.970982.3.579.2.5 93 1956 Unknown [id number] 2.16.840.1.812812.3.579.2.5 93 1956 Unknown [id number] 2.16.840.1.835616.3.579.2.7 27 1955 Unknown [id number] 2.16.840.1.542865.3.579.2.1 259 1955 Unknown [id number] 2.16.840.1.537802.3.579.2.1 259 1956 Unknown [id number] 2.16.840.1.624500.3.579.2.1 259 1956 Unknown [id number] 2.16.840.1.412080.3.579.2.1 259 1956 Unknown [id number] 2.16.840.1.560668.3.579.2.1 259 1955 Unknown [id number] 2.16.840.1.587459.3.579.2.1 259 Medicare Medicare [id number] Unknown [id number] Unknown Unknown HCAP/HFA/FAP Active [id number] Unknown [id number] 2.16.840.1.691960.3.579.2.5 31 Social History Date Type Detail Facility [facility]31-[facility] [place] Start: 05-31-2018 Alcohol intake Ex-drinker (finding) [place] Start: 1955 Sex Assigned At Not on file [place] Exposure to SARS-CoV -2 (event) Not sure [place] Start: 1955 Sex Assigned At Female F [facility] Start: 10-23-2022 Tobacco smoking stat us NHIS Smokes tobacco daily [facility] History of tobacco use [facility] Start: 10-23-2022 Cigarettes smoked current (pack per day) - Reported 1 [facility] Start: 10-23-2022 Tobacco use and exposure User of smokeless tobacco [facility] Start: 10-23-2022 Alcohol intake Lifetime non-d roni (finding) [facility] Start: 10-23-2022 Tobacco use panel [facility] Start: 10-23-2022 Tobacco [facility] note 10-23-2022 Note Date & Type Note Facility 10-23-2022 Note HNO ID: [id number] Author: Claire Morales MD Service: ? Author [...] cc: Referring provider Anamika Valle [address] [facility] [address] Medical Decision Making: Problems: Low: Stable chronic illness Data: Independent interpretation of test from other physician/QHCP Medical Decision Making Level: 3 - Low [facility] History of Present illness Narrative 10-23-2022 Claire [...] cc: Referring provider Anamika Valle [address] [facility] [address] Medical Decision Making: Problems: Low: Stable chronic illness Data: Independent interpretation of test from other physician/QHCP Medical Decision Making Level: 3 - Low documented in this encounter [facility] Note 08-31-2021 Note Date & Type Note Facility 08-31-2021 Note OPERATIVE NOTE OPERATION DATE: 08/31/2021 PREOPERATIVE DIAGNOSIS: Acute appendicitis. POSTOPERATIVE DIAGNOSIS: Acute appendicitis. PROCEDURE PERFORMED: Laparoscopic appendectomy. SURGEON: Eris Rehman M.D. CULTURIST: PINA Corona ANESTHESIA: General, 0.5% Marcaine for [...] taken to the PACU in fair condition. [facility] Signed and Approved by: DR ERIS REHMAN . 09/15/2021 06:33:00 [facility] Evaluation note Note Date & Type Note Facility Evaluation note [facility] Evaluation note Note Date & Type Note Facility Evaluation note Diagnosis Ventral hernia without obstruction or gangrene- Primary Ventral hernia, unspecified, without mention of obstruction or gangrene documented in this encounter [facility] Summary Purpose Family History No Family History Records FoundNo Family History Records FoundNo Family History Records FoundNo Family History Records FoundNo Family History Records FoundNo Family History Records FoundNo Family History Records Found Advance Directives No Advanced Directives Records FoundDocuments on File Type Date Recorded Patient Evp Sales Expl anation Advance Directives and Living Will Power of Weight Loss Counselor Advance Directive Response Recorded Date/ Time Advance Directives No June 06, 2 018 3:52pm Chief Complaint and Reason for Visit Chief Complaint Screening Additional Source Comments INFORMATION SOURCE (unrecogn ized section and content) DATE CREATED AUTHOR 03/21/2018 [facility] DATE CREATED AUTHOR AUTHOR'S ORGANIZ ATION [facility] DATE CREATED AUTHOR AUTHOR'S ORGANIZ ATION 04/27/2022 [facility] DATE CREATED AUTHOR AUTHOR'S ORGANIZ ATION 09/17/2022 [facility] DATE CREATED AUTHOR AUTHOR'S ORGANIZ ATION 10/27/2022 [facility] DATE CREATED AUTHOR AUTHOR'S ORGANIZ ATION 01/01/2023 [facility] DATE CREATED AUTHOR AUTHOR'S ORGANSAMMIE ATION 08/02/2023 [facility] [employer] Care Teams (unrecognized sec tion and content) Team Status: Active Member Role Status Dates Anamika Valle MD Primary Care Provider Active Team Status: Inactive Member Role Status Dates Anamika Valle MD Primary Care Provider Active Referral Self Attending Provider Active Circle Beveler Relationship Specialty Start Date End Date Anamika Valle MD PCP - General 10/24/04 Anamika Valle MD [address] [place] [address] Referring Family Medicine 10/05/22 Goals (unrecognized section [...] or prosecute any alcohol or drug abuse patient.[facility] Reason for Visit (unrecogniz ed section and [...] BE BASED ON THE PRIMARY CLINICAL RECORDS. [facility] [employer] [email or web address] provides no warranty or guarantee of the accuracy or completeness of information in this document.
[2023-10-07 15:40] LABS: Basophils Absolute Auto 0.1 10^3/uL (0.0-0.1); Basophils Percent Auto 1.2 % (0.2-2.0); Eosinophils Absolute Auto 0.1 10^3/uL (0.0-0.7); Eosinophils Percent Auto 2.1 % (0.9-7.0); Hematocrit 39.1 % (36.0-48.0); Hemoglobin 12.6 g/dL (12.0-16.0); Immature Granulocytes Abs Auto 0.01 10^3/uL (0.00-0.03); Immature Granulocytes Pct Auto 0.2 % (0.0-0.5); Lymphocytes Absolute Auto 1.3 10^3/uL (1.2-3.8); Lymphocytes Percent Auto 25.9 % (20.5-60.0); Mean Corpuscular HGB Conc 32.2 g/dL (29.9-35.2); Mean Corpuscular Hemoglobin 27.4 pg (26.7-34.0); Mean Platelet Volume 9.6 fL (9.5-13.5); Monocytes Absolute Auto 0.5 10^3/uL (0.3-0.8); Monocytes Percent Auto 9.2 % (1.7-12.0); Neutrophils Absolute Auto 3.2 10^3/uL (1.4-6.5); Neutrophils Percent Auto 61.4 % (43.0-75.0); Platelet Count 266 10^3/uL (150-450); Red Cell Distribution Width 14.4 % (11.0-15.0); White Blood Count 5.1 10^3/uL (4.0-11.0)
[2023-10-07 15:59] LABS: Partial Thromboplastin Time 29.1 sec (22.3-36.2); Prothrombin Time 10.6 sec (9.0-11.6)
[2023-10-07 16:17] LABS: Thyroid Stimulating Hormone 0.867 uIU/mL (0.358-3.740)
[2023-10-07 16:21] LABS: Free T4 1.07 ng/dL (0.76-1.46)
== END 2023-10-07 15:17 | disposition home or self-care (01) ==
LOC: LAB 15:17
PROVIDERS: PCP Family Medicine; Visit Provider Family Medicine
DX: R23.3 Spontaneous ecchymoses (principal); E03.9 Hypothyroidism, unspecified; D64.9 Anemia, unspecified; R53.83 Other fatigue
CPT/HCPCS: 36415; 82728; 83540; 84439; 84443; 85002; 85025; 85610; 85730

== ENCOUNTER 2024-01-01 09:52 | Outpatient (OUT) | payer MEDICARE, SELFPAY ==
--- OUTSIDE RECORDS SUMMARY | 2024-01-01 10:01 | XMS_ITS | CCD ---
Author Organization [facility] Care Team Providers Care Home Day Care Provider Name Role Phone PHYSICIAN, DEFAULT Unavailable Unavailable PHYSICIAN, DEFAULT Unavailable Unavailable HOY ANAMIKA Unavailable Unavailable JI, ABDULAZIM Unavailable Unavailable JI, ABDULAZIM Unavailable Unavailable HOBabar ANAMKIA Unavailable Unavailable JANINE VALLELAS Unavailable Unavailable [place] Unavailable Unavailable JI, ABDULAZIM Unavailable Unavailable [place] Unavailable Unavailable BOUCHRA HARPER Unavailable Unavailable ANAMIKA VALLE Referring Unavailable ANAMIKA VALLE Primary Care Unavailable ANAMIKA VALLE Referring Unavailable ANAMIKA VALLE Primary Care Unavailable Anamika Valle Primary Care Provider MD Anamika Valle Primary Care Provider [phone] Self, Referral Attending Provider Unavailable DR ANAMIKA VALLE Admitting Unavailable TORI, DR WILLSON Attending Unavailable TORI, DR WILLSON Primary Care Unavailable TORI, DR WILLSON Consulting Unavailable Corrine, DR Decker Consulting Unavailable DR ANAMIKA VALLE Primary Care Unavailable WIECEK, DR ERIS Irwin Admitting Unavailable WIECEK, DR ERIS Irwin Attending Unavailable WIECEK, DR ERIS Irwin Consulting Unavailable Corrine, DR Decker Consulting Unavailable DEXTER SAUNDERS Consulting Unavailable KELLY LEWIS Consulting Unavailable DANNA HERNANDES Consulting Unavailable DR ANAMIKA VALLE Admitting Unavailable TORI, DR WILLSON Attending Unavailable DR ANAMIKA VALLE Primary Care Unavailable DR ANAMIKA VALLE Consulting Unavailable Corrine, DR Decker Consulting Unavailable DR ANAMIKA VALLE Admitting Unavailable TORI, DR WILLSON Attending Unavailable TORI, DR WILLSON Primary Care Unavailable DR ANAMIKA VALLE Consulting Unavailable DR ENIO MOHAN V Consulting Unavailable DR ANAMIKA VALLE Admitting Unavailable TORI, DR WILLSON Attending Unavailable DR ANAMIKA VALLE Primary Care Unavailable TORI, DR WILLSON Consulting Unavailable TORI, DR WILLSON Admitting Unavailable DR ANAMIKA VALLE Attending Unavailable DR ANAMIKA VALLE Primary Care Unavailable DR ANAMIKA VALLE Consulting Unavailable MARQUES, DR ENIO Vasquez Consulting Unavailable DESTINI DOOLEY Admitting Unavailable DESTINI DOOLEY Attending Unavailable DR ANAMIKA VALLE Primary Care Unavailable DESTINI DOOLEY Consulting Unavailable Rubén MANUEL Attending Unavailable Anamika Valle Referring Unavailable Anamika Valle MD Primary Care Provider Anamika Valle MD Unavailable ANAMIKA VALLE Referring Unavailable ANAMIKA VALLE Primary Care Unavailable CLAIRE MORALES Attending Unavailable MD Anamika Valle Primary Care Provider Self, Referral Attending Provider Unavailable Anamika Valle MD Primary Care Provider MONIE NAVARRO Attending Unavailable MONIE NAVARRO Attending Unavailable MONIE NAVARRO Attending Unavailable DESI CURRY Attending Unavailable MONIE NAVARRO Attending Unavailable MONIE NAVARRO Attending Unavailable LUCY ESCOBAR Attending Unavailable Self, Referral Admitting Unavailable Self, Referral Attending Unavailable Anamika Valle Referring Unavailable Anamika Valle Primary Care Unavailable MD Anamika Valle Primary Care Provider [phone] MD Anamika Valle Referring Provider Self, Referral Attending Provider Unavailable Allergies Allergy Classification Reported Allergen(s) Allergy Type Date of Onset Reaction(s) Facility (9 sources) Codeine; Translations: [CODEINE] Drug Allergy 5 Nausea Only [facility] Repository (1 source) Etodolac Drug Allergy 7 [facility] Repository (1 source) no latex allergy [Other] Propensity to adverse reactions 5 [facility] (4 sources) OTHER; Translations: [OTHER] Propensity to adverse reactions (disorder) 5 [facility] Repository (3 sources) Etodolac Allergy to substance 3 [facility] (3 sources) Sulfonamides (Antibiotic) Drug Allergy 2 Hives [facility] (1 source) Unable to Assess Drug allergy (disorder) 9 [facility] Repository Medications Current Medications Medication Drug Class(es) Dates Sig (Normalized) Sig (Original) amitriptyline hydrochloride 50 mg oral tablet (4 sources) Tricyclic Antidepressant Start: 09-20-2022 amitriptyline (Elavil) 50 MG tablet 09/20/2022 Active Comment on above: Take 50 mg by mouth every evening. cephalexin 500 mg oral capsule (2 sources) Cephalosporin Antibacterial Start: 06-01-2018 take 1 capsule by mouth three times daily cephALEXin (KEFLEX) 500 MG capsule Take 1 capsule by mouth 3 times daily 21 capsule 0 06/01/2018 Active cyclobenzaprine hydrochloride 10 mg oral tablet (4 sources) Muscle Relaxant Start: 09-14-2022 take 1 tablet by mouth in the morning, then take 1 tablet by mouth in the evening, then take 1 tablet by mouth at bedtime cyclobenzaprine (Flexeril) 10 MG tablet Take 10 mg by mouth in the morning and 10 mg in the evening and 10 mg before bedtime. 09/14/2022 Active Comment on above: Take 10 mg by mouth three times daily. doxepin hydrochloride 10 mg oral capsule (4 sources) Tricyclic Antidepressant Start: 08-21-2022 take 1 capsule by mouth at bedtime as needed doxepin (SINEquan) 10 MG capsule TAKE 1 TO 2 CAPSULES BY MOUTH AT BEDTIME NEEDED FOR ANXIETY 08/21/2022 Active Comment on above: TAKE 1 TO 2 CAPSULES BY MOUTH AT BEDTIME NEEDED FOR ANXIETY famotidine 40 mg oral tablet (4 sources) Histamine-2 Receptor Antagonist Start: 09-14-2022 take 1 tablet by mouth twice daily, then take 1 tablet by mouth at bedtime famotidine (Pepcid) 40 MG tablet TAKE 1 TABLET BY MOUTH TWICE DAILY with one dose being AT BEDTIME 09/14/2022 Active Comment on above: TAKE 1 TABLET BY DIEGO TH TWICE DAILY with one dose being AT BEDTIME meloxicam 7.5 mg oral tablet (4 sources) Nonsteroidal Anti-inflammatory Drug Start: 10-17-2022 meloxicam (Mobic) 7.5 MG tablet 1 (one) time each day at the same time 10/17/2022 Active Comment on above: Take 1 tablet by diego th every afternoon. pantoprazole 40 mg delayed release oral tablet (4 sources) Proton Pump Inhibitor Start: 07-15-2022 take 1 tablet by mouth in the morning pantoprazole (ProtoNix) 40 MG EC tablet Take 40 mg by mouth in the morning. 07/15/2022 Active Start: 07-15-2022 take 1 tablet by mouth once pa ntoprazole DR (PROTONIX) 40 mg tablet Take 1 tablet by mouth every afternoon. 0 07/15/2022 Active Comment on above: Take 1 tablet by diego th every afternoon. sucralfate 1000 mg oral tablet (4 sources) Aluminum Complex Start: 09-14-2022 take 1 tablet by mouth four times daily at bedtime sucralfate (Carafate) 1 g tablet TAKE 1 TABLET BY MOUTH FOUR TIMES DAILY (BEFORE MEALS & AT BEDTIME ON AN EMPTY STOMACH) 09/14/2022 Active Comment on above: TAKE 1 TABLET BY DIEGO TH FOUR TIMES DAILY (BEFORE MEALS & AT BEDTIME ON AN EMPTY STOMACH) tiZANidine 4 mg oral tablet (3 sources) Central alpha-2 Adrenergic Agonist Start: 01-21-2023 take 2 tablets by mouth at bedtime tiZANidine (Zanaflex) 4 MG tablet 2 tablets Orally at bedtime for 90 days 01/21/2023 Active Completed/Discontinued Medications Medication Drug Class(es) Dates Sig (Normalized) Sig (Original) ALPRAZolam 0.5 mg oral tablet (1 source) Benzodiazepine Start: 07-03-2006 take 1 tablet by mouth once at bedtime alprazolam (XANAX) 0.5 mg ORAL Tab Indications: Subjective tinnitus , Mixed conductive and sensorineural hearing loss ONE BY MOUTH EVERY HS 30 6 07/03/2006 Active Comment on above: ONE BY MOUTH EVERY H S amoxicillin 875 mg / clavulanate 125 mg oral tablet (1 source) Penicillin-class Antibacterial Start: 10-18-2022 take 1 tablet by mouth every twelve hours amoxicillin-clavula te acid (AUGMENTIN) 875-125 mg per tablet Take 1 tablet by mouth every 12 hours. 0 10/18/2022 Active Comment on above: Take 1 tablet by diego th every 12 hours. estrogens, conjugated (chcf) 0.625 mg oral tablet (1 source) Estrogen Start: 11-29-2004 take 1 tablet by mouth once daily PREMARIN 0.625 MG ORAL TAB Take one(1) tablet daily. 0 11/29/2004 Active Comment on above: Take one(1) tablet d aily. raNITIdine 150 mg oral tablet (1 source) Histamine-2 Receptor Antagonist Start: 11-29-2004 take 1 tablet by mouth once daily ZANTAC 150 MG ORAL TAB Take one(1) tablet daily. 0 11/29/2004 Active Comment on above: Take one(1) tablet d aily. Problems Active Problems Problem Classification Problem Date Documented Date Episodic/Chronic Abdominal hernia (3 sources) Ventral hernia without obstruction or gangrene; Translations: [Hernia of anterior abdominal wall] Onset: 2 10-23-2022 Episodic Allergic reactions (1 source) Allergy status to narcotic agent status; Translations: [ALLERGY STATUS TO NARCOTIC AGENT STATUS] Onset: 8 Episodic Coagulation and hemorrhagic disorders (2 sources) Non-thrombocytopenic purpura; Translations: [Other nonthrombocytopenic purpura] 12-17-2023 Episodic Immunizations and screening for infectious disease (1 source) Encounter for screening for human papillomavirus (HPV); Translations: [ENC SCREENING HUMAN PAPILLOMAVIRUS] Onset: 3 Episodic Occlusion or stenosis of precerebral arteries (4 sources) Occlusion and stenosis of bilateral carotid arteries; Translations: [OCCLUSION AND STENOS ANDREAS CAROTID ART] Onset: 2 Chronic Other connective tissue disease (4 sources) Radial styloid tenosynovitis [de Quervain]; Translations: [RADIAL STYLOID TENOSYNOVITIS [DE QUERVAIN]] Onset: 8 Episodic Other ear and sense organ disorders (1 source) Conductive hearing loss; Translations: [Conductive hearing loss, unspecified] Onset: 6 10-05-2022 Chronic Other screening for suspected conditions (not mental disorders or infectious disease) (4 sources) Encounter for screening for malignant neoplasm of cervix; Translations: [ENC SCREENING MALIG NEOPLASM CERV] Onset: 3 Episodic Other skin disorders (2 sources) Actinic keratosis; Translations: [Actinic keratosis] 12-17-2023 Episodic Screening and history of mental health and substance abuse codes (1 source) Personal history of nicotine dependence; Translations: [PERSONAL HISTORY OF NICOTINE DEPENDENCE] Onset: 8 Episodic Thyroid disorders (8 sources) Nontoxic single thyroid nodule; Translations: [Nontoxic multinodular goiter] Onset: 2 Chronic Unclassified (2 sources) Unknown / UNK(Unknown) Onset: 8 Past or Other Problems Problem Classification Problem Date Documented Da te Episodic/Chronic Appendicitis and other appendiceal conditions (4 sources) Unspecified acute appendicitis; Translations: [UNSPECIFIED ACUTE APPENDICITIS] Onset: 08-31-2021 Episodic Deficiency and other anemia (1 source) Anemia, unspecified; Translations: [ANEMIA UNSPECIFIED] Onset: 11-10-2021 Episodic Diabetes mellitus without complication (1 source) Other abnormal glucose; Translations: [OTHER ABNORMAL GLUCOSE] Onset: 11-10-2021 Episodic Other connective tissue disease (3 sources) Pain in left foot; Translations: [Pain in left foot] Onset: 09-21-2022 09-21-2022 Episodic Results Test Name Value Interpretation Reference Range Facility MM screening mammo BI w/CADo n 12-27-2023 MM screening mammo BI w/CAD [facility] [place] [address] Mammography Report Signed Patient: Xena Ewing MR#: [id number] : 1955 Acct:[id number] Age/Sex: 68 / F ADM Date: 12/27/23 Loc: [place] Room: Type: [facility] Attending Dr: Referral Self Copies to: Anamika Valle MD SELF,REFERRAL Ordering Provider: SELF,REFERRAL Date of Service: 12/27/23 MM/MM screening mammo BI w/CAD: SCREENING CLINICAL DATA: Screening for malignancy. SCREENING MAMMOGRAM - FULL FIELD DIGITAL WITH TOMOSYNTHESIS AND CAD COMPARISON:Mammograms dating back to 2019 Tomosynthesis craniocaudal and mediolateral oblique views of both breasts were obtained using low- dose digital technique. This examination was reviewed with the aid of CAD. FINDINGS: The breast parenchyma is heterogeneously dense. There are no dominant masses, typically malignant calcifications or architectural distortion. [...] for the next mammogram. Impression dictated by: Blake Schmidt Jr., D.O.12/27/2023 1:07 PM Dictation Location: [facility] Transcribed By: PINO 12/27/231306 Dictated By: Blake Schmidt Jr, DO 12/27/231303 Signed By: 12/27/231306 Normal [facility] Panel Informationon 12-16 [facility] CNOV 10-23-2022 CNOV Office Visit (GENBMI ) -------- XENA EWING ([id number]) 1955 [facility] Date Time Provider Department 10/23/22 11:30 AM [...] Surgery cc: Referring provider Anamika Valle [address] [facility] [id number] Medical Decision Making: Problems: Low: Stable chronic illness Data: Independent interpretation of test from other physician/QP Medical Decision Making Level: 3 - Low Referring Provider: ANAMIKA VALLE [[id number]] Allergies As of Date: 10/23/2022 Noted Allergy [...] ANXIETY - (more content not included)... Normal [facility] Physician Referralon 023 Physician Referral [id number] [id number]: [id number] Normal [facility] PAP ACOG PANEL 2: 30 to 65on 04-26-2022 . . Normal [facility] Comment on above: Result Comment: Perf ormed at: WB Performed By: #### [id number] #### [facility] [address] [address] [address] Kayy Virgen Age Gdln ACOG Testing 30-65 Normal [facility] Comment on above: Performed By: #### 4 [id number] #### [facility] [address] [address] [address] Kayy Virgen DIAGNOSIS: Comment Normal [facility] Comment on above: Result Comment: UNSA TISFACTORY FOR EVALUATION. Performed at: WB Performed By: #### 4 [id number] #### [facility] [address] [address] [address] Kayy Virgen HPV Aptima Negative Normal Negative [facility] Comment on above: Result Comment: This nucleic acid amplification test detects fourteen high-risk HPV types (16,18,31,33,35,39,45,51,52,56,58,59,66,68) without differentiation. Performed at: =G Performed By: #### 4 [id number] #### [facility] [address] [place] [address] Dr. Kayy Virgen HPV Genotype Reflex Comment Normal [facility] Comment on above: Result Comment: Crit eria not met, HPV Genotype not performed. Performed at: WB Performed By: #### 4 [id number] #### [facility] [address] [place] [address] Dr. Kayy Virgen Methodology: Comment Normal [facility] Comment on above: Result Comment: This liquid based ThinPrep(R) pap test was screened with the use of an image guided system. Performed at: WB Performed By: #### 4 [id number] #### [facility] [address] [place] [address] Dr. Kayy Virgen Note: Comment Normal [facility] Comment on above: Result Comment: The Pap smear is a screening test designed to aid in the detection of premalignant and malignant conditions of the uterine cervix. It is not a diagnostic procedure and should not be used as the sole means of detecting cervical cancer. Both false-positive and false-negative reports do occur. . Performed at: WB Performed By: #### 4 [id number] #### [facility] [address] [place] [address] Dr. Kayy Virgen Performed by: Comment Normal [facility] Comment on above: Result Comment: Arturo Peters, General Lot Attendant (ASCP) Performed at: KWCYT Performed By: #### 4 [id number] #### [facility] [address] [address] [address] Kayy Virgen QC reviewed by: Comment Normal [facility] Comment on above: Result Comment: Pepe Cordova, Supervisory General Lot Attendant (ASCP) Performed at: WB Performed By: #### 4 [id number] #### [facility] [address] [address] [address] Kayy Virgen Recommendation: Comment Normal [facility] Comment on above: Result Comment: Sugg est follow up as clinically appropriate. Performed at: WB Performed By: #### 4 [id number] #### [facility] [address] [address] [address] Kayy Virgen Specimen adequacy: Comment Normal [facility] Comment on above: Result Comment: Spec imen processed and examined but unsatisfactory for evaluation of epithelial abnormality because of insufficient cellularity. Performed at: WB Performed By: #### 4 [id number] #### [facility] [address] [address] [address] Kayy Virgen US THYROIDon 01-05-2022 US [...] TR 4 nodule, previously biopsied TI-RADS: The [employer] TI-RADS committee's white paper recommendations for thyroid lesions classified as TR3 (mildly suspicious) are listed below: > 1.5 cm. Follow-up ultrasound in 1, 3, and 5 years. > 2.5 cm. FNA. J. Am Anais Radiol 2017;14:587-595. Electronically authenticated by: ENIO MOHAN Date: 2022-01-05 15:25 Normal [facility] T4, T3U, FTI LABCORPon 11-10 Free Thyroxine Index 2.0 Normal 1.2-4.9 [facility] Comment on above: Performed By: #### T HYLC ####[facility] [address] [address]Dr. Kayy Virgen T3 Uptake 26 % Normal 24-39 [facility] Comment on above: Performed By: #### T HYLC ####[facility] [address] [id number]. Kayy Virgen T4 [Mass/Vol] 7.5 ug/dL Normal 4.5-12.0 [facility] Comment on above: Performed By: #### T HYLC ####[facility] [address] [place], [place] [address]Dr. Kayy Param CBC AUTO DIFFon 11-09-2021 BASO # 0.1 103/ul Normal 0.0-0.1 [facility] Comment on above: Performed By: #### C BC ####[facility] [address] [place], [place] [address]Dr. Shereesamia Virgen Basophils/100 WBC (Bld) 2.1 % Critically high 0.2-2.0 [facility] Comment on above: Performed By: #### C BC ####[facility] [address] [place], [place] [address]Dr. Shereesamia Param EO # 0.2 103/ul Normal 0.0-0.7 [facility] Comment on above: Performed By: #### C BC ####[facility] [address] [place], [place] [address]Dr. Kayy Virgen Eosinophils/100 WBC (Bld) 5.1 % Normal 0.9-7.0 [facility] Comment on above: Performed By: #### C BC ####[facility] [address] [place], [place] [address]Dr. Kayy Virgen Erythrocyte distribution width (RBC) [Ratio] 14.6 % Normal 11.0-15.0 [facility] Comment on above: Performed By: #### C BC ####[facility] [address] [address]Dr. Kayy Virgen Hematocrit (Bld) [Volume fraction] 38.5 % Normal 36.0-48.0 [facility] Comment on above: Performed By: #### C BC ####[facility] [address] [address]Dr. Kayy Virgen Hemoglobin (Bld) [Mass/Vol] 12.4 g/dL Normal 12.0-16.0 [facility] Comment on above: Performed By: #### C BC ####[facility] [address] [place], [place] [address]Dr. Kayy Virgen IG # 0.01 10e3/ul Normal 0.00-0.03 [facility] Comment on above: Performed By: #### C BC ####[facility] [address] [place], [place] [address]Dr. Kayy Virgen IG % 0.2 % Normal 0.0-0.5 [facility] Comment on above: Performed By: #### C BC ####[facility] [address] [place], [place] [address]DrIrene Virgen LYMPH # 1.5 103/ul Normal 1.2-3.8 [facility] Comment on above: Performed By: #### C BC ####[facility] [address] [place], [place] [address]Dr. Kayy Virgen Lymphocytes/100 WBC (Bld) 33.7 % Normal 20.5-60.0 [facility] Comment on above: Performed By: #### C BC ####[facility] [address] [place], [place] [address]Dr. Kayy Virgen MANUAL DIFF REQ NO Normal [facility] Comment on above: Performed By: #### C BC ####[facility] [address] [address]Dr. Kayy Virgen MCH (RBC) [Entitic mass] 26.7 pg Normal 26.7-34.0 [facility] Comment on above: Performed By: #### C BC ####[facility] [address] [address]Dr. Kayy Virgen MCHC (RBC) [Mass/Vol] 32.2 g/dL Normal 29.9-35.2 [facility] Comment on above: Performed By: #### C BC ####[facility] [address] [address]Dr. Kayy Virgen MCV (RBC) [Entitic vol] 82.8 fL Normal 81.0-99.0 [facility] Comment on above: Performed By: #### C BC ####[facility] [address] [place], [place] [address]Dr. Kayy Virgen MONO # 0.5 103/ul Normal 0.3-0.8 [facility] Comment on above: Performed By: #### C BC ####[facility] [address] [place], [place] [address]Dr. Kayy Virgen Monocytes/100 WBC (Bld) 11.9 % Normal 1.7-12.0 [facility] Comment on above: Performed By: #### C BC ####[facility] [address] [place], [place] [address]Dr. Kayy Virgen NEUT # 2.0 103/ul Normal 1.4-6.5 [facility] Comment on above: Performed By: #### C BC ####[facility] [address] [place], [place] [address]Dr. Kayy Virgen Neutrophils/100 WBC (Bld) 47.0 % Normal 43.0-75.0 [facility] Comment on above: Performed By: #### C BC ####[facility] [address] [place], [place] [address]Dr. Kayy Virgen Platelet mean volume (Bld) [Entitic vol] 9.7 fL Normal 9.5-13.5 [facility] Comment on above: Performed By: #### C BC ####[facility] [address] [place], [place] [address]Dr. Kayy Virgen PLT 269 103/ul Normal 150-450 [facility] Comment on above: Performed By: #### C BC ####[facility] [address] [address]DrIrene Virgen RBC 4.65 106/ul Normal 4.20-5.40 [facility] Comment on above: Performed By: #### C BC ####[facility] [address] [id number] Virgen WBC 4.3 103/ul Normal 4.0-11.0 [facility] Comment on above: Performed By: #### C BC ####[facility] [address] [address]Dr. Kayy Virgen GLYCOHEMOGLOBIN A1Con 2021 ADA RECOMMENDATION SEE BELOW Normal [facility] Comment on above: Result Comment: ADA RECOMMENDED LIMIT 4.0 - 6.0 ADA THERAPEUTIC TARGET < 7.0 ACTION SUGGESTED > 7.0 Performed By: #### A 1C #### [facility] [address] [address] [address] Kayy Virgen Glucose [Mass/Vol] 117 mg/dL Normal [facility] Comment on above: Performed By: #### A 1C #### [facility] [address] [address] [address] Kayy Virgen HbA1c (Bld) [Mass fraction] 5.7 % Normal 4.5-6.2 [facility] Comment on above: Performed By: #### A 1C #### [facility] [address] [address] [address] Kayy Virgen IRONon 11-09-2021 Iron [Mass/Vol] 100.0 ug/dL Normal 50.0-170.0 [facility] Comment on above: Performed By: #### I STEPHANI #### [facility] [address] [address] [address] Kayy Virgen PROF 14(COMP METB)on 022 Albumin [Mass/Vol] 4.0 g/dL Normal 3.4-5.0 [facility] Comment on above: Performed By: #### C MP, TSH #### [facility] [address] [address] [address] Kayy Virgen Albumin/Globulin [Mass ratio] 1.1 {ratio} Normal [facility] Comment on above: Performed By: #### C MP, TSH #### [facility] [address] [address] [address] Kayy Virgen ALP [Catalytic activity/Vol] 109 U/L Normal 46-116 [facility] Comment on above: Performed By: #### C MP, TSH #### [facility] [address] [address] [address] Kayy Virgen ALT [Catalytic activity/Vol] 26 U/L Normal 14-59 [facility] Comment on above: Performed By: #### C MP, TSH #### [facility] [address] [place] [address] Dr. Kayy Virgen Anion gap [Moles/Vol] 11.2 mmol/L Normal [facility] Comment on above: Performed By: #### C MP, TSH #### [facility] [address] [place] [address] Dr. Kayy Virgen AST [Catalytic activity/Vol] 58 U/L Critically high 15-37 [facility] Comment on above: Performed By: #### C MP, TSH #### [facility] [address] [place] [address] Dr. Kayy Virgen Bilirubin [Mass/Vol] 0.4 mg/dL Normal 0.2-1.0 [facility] Comment on above: Performed By: #### C MP, TSH #### [facility] [address] [place] [address] Dr. Kayy Virgen Calcium [Mass/Vol] 9.8 mg/dL Normal 8.5-10.1 [facility] Comment on above: Performed By: #### C MP, TSH #### [facility] [address] [place] [address] Dr. Kayy Virgen Chloride [Moles/Vol] 103 mmol/L Normal 98-107 [facility] Comment on above: Performed By: #### C MP, TSH #### [facility] [address] [address] [address] Kayy Virgen CO2 [Moles/Vol] 28.2 mmol/L Normal 21.0-32.0 [facility] Comment on above: Performed By: #### C MP, TSH #### [facility] [address] [address] [address] Kayy Virgen Creatinine [Mass/Vol] 0.98 mg/dL Normal 0.55-1.02 [facility] Comment on above: Performed By: #### C MP, TSH #### [facility] [address] [address] [address] Kayy Virgen EGFR-AF COLOMBIAN >60 Normal >=60 [facility] Comment on above: Performed By: #### C MP, TSH #### [facility] [address] [address] [address] Kayy Virgen EGFR-NON AF COLOMBIAN 57 mL/min/1.73m2 Critically low >=60 [facility] Comment on above: Performed By: #### C MP, TSH #### [facility] [address] [address] [address] Kayy Virgen Globulin (S) [Mass/Vol] 3.8 g/dL Normal [facility] Comment on above: Performed By: #### C MP, TSH #### [facility] [address] [address] [address] Kayy Virgen Glucose [Mass/Vol] 102 mg/dL Normal 74-106 [facility] Comment on above: Performed By: #### C MP, TSH #### [facility] [address] [address] [address] Kayy Virgen Potassium [Moles/Vol] 4.4 mmol/L Normal 3.5-5.1 [facility] Comment on above: Performed By: #### C MP, TSH #### [facility] [address] [address] [address] Kayy Virgen Protein [Mass/Vol] 7.8 g/dL Normal 6.4-8.2 [facility] Comment on above: Performed By: #### C MP, TSH #### [facility] [address] [address] [address] Kayy Virgen Sodium [Moles/Vol] 138 mmol/L Normal 136-145 [facility] Comment on above: Performed By: #### C MP, TSH #### [facility] [address] [address] [address] Kayy Virgen Urea nitrogen [Mass/Vol] 22.0 mg/dL Critically high 7.0-18.0 [facility] Comment on above: Performed By: #### C MP, TSH #### [facility] [address] [address] [address] Kayy Virgen Urea nitrogen/Creatinine [Mass ratio] 22.4 mg/mg Normal [facility] Comment on above: Performed By: #### C MP, TSH #### [facility] [address] [address] [address] Kayy Virgen TSHon 11-09-2021 TSH 1.200 uIU/mL Normal 0.358-3.740 [facility] Comment on above: Performed By: #### C MP, TSH #### [facility] [address] [address] [address] Kayy Virgen AMYLASEon 08-31-2021 Amylase [Catalytic activity/Vol] 34 U/L Normal 25-115 [facility] Comment on above: Performed By: #### A MY, CMP, LIPA ####[facility] [address] [place], [place] [address]HeDr. Kayy Virgen CBC AUTO DIFFon 08-31-2021 BASO # 0.1 103/ul Normal 0.0-0.1 [facility] Comment on above: Performed By: #### C BC ####[facility] [address] [id number]. Kayy Virgen Basophils/100 WBC (Bld) 0.8 % Normal 0.2-2.0 [facility] Comment on above: Performed By: #### C BC ####[facility] [address] [id number]. Kayy Virgen EO # 0.0 103/ul Normal 0.0-0.7 [facility] Comment on above: Performed By: #### C BC ####[facility] [address] [address]Dr. Kayy Virgen Eosinophils/100 WBC (Bld) 0.6 % Critically low 0.9-7.0 [facility] Comment on above: Performed By: #### C BC ####[facility] [address] [place], [place] [address]Dr. Kayy Virgen Erythrocyte distribution width (RBC) [Ratio] 13.9 % Normal 11.0-15.0 [facility] Comment on above: Performed By: #### C BC ####[facility] [address] [place], [place] [address]Dr. Kayy Virgen Hematocrit (Bld) [Volume fraction] 37.7 % Normal 36.0-48.0 [facility] Comment on above: Performed By: #### C BC ####[facility] [address] [place], [place] [address]Dr. Kayy Virgen Hemoglobin (Bld) [Mass/Vol] 12.3 g/dL Normal 12.0-16.0 [facility] Comment on above: Performed By: #### C BC ####[facility] [address] [place], [place] [address]Dr. Kayy Virgen IG # 0.02 10e3/ul Normal 0.00-0.03 [facility] Comment on above: Performed By: #### C BC ####[facility] [address] [place], [place] [address]Dr. Kayy Virgen IG % 0.3 % Normal 0.0-0.5 [facility] Comment on above: Performed By: #### C BC ####[facility] [address] [place], [place] [address]Dr. Kayy Virgen LYMPH # 1.4 103/ul Normal 1.2-3.8 [facility] Comment on above: Performed By: #### C BC ####[facility] [address] [place], [place] [address]Dr. Kayy Virgen Lymphocytes/100 WBC (Bld) 20.8 % Normal 20.5-60.0 [facility] Comment on above: Performed By: #### C BC ####[facility] [address] [address]Dr. Kayy Virgen MANUAL DIFF REQ NO Normal [facility] Comment on above: Performed By: #### C BC ####[facility] [address] [id number]. Kayy Virgen MCH (RBC) [Entitic mass] 26.9 pg Normal 26.7-34.0 [facility] Comment on above: Performed By: #### C BC ####[facility] [address] [address]Dr. Kayy Virgen MCHC (RBC) [Mass/Vol] 32.6 g/dL Normal 29.9-35.2 [facility] Comment on above: Performed By: #### C BC ####[facility] [address] [place], [place] [address]Dr. Kayy Virgen MCV (RBC) [Entitic vol] 82.5 fL Normal 81.0-99.0 [facility] Comment on above: Performed By: #### C BC ####[facility] [address] [place], [place] [address]Dr. Kayy Virgen MONO # 0.6 103/ul Normal 0.3-0.8 [facility] Comment on above: Performed By: #### C BC ####[facility] [address] [place], [place] [address]Dr. Kayy Virgen Monocytes/100 WBC (Bld) 8.8 % Normal 1.7-12.0 [facility] Comment on above: Performed By: #### C BC ####[facility] [address] [place], [place] [address]DrIrene Virgen NEUT # 4.5 103/ul Normal 1.4-6.5 [facility] Comment on above: Performed By: #### C BC ####[facility] [address] [place], [place] [address]DrIrene Virgen Neutrophils/100 WBC (Bld) 68.7 % Normal 43.0-75.0 [facility] Comment on above: Performed By: #### C BC ####[facility] [address] [place], [place] [address]Mi. Kayy iVrgen Platelet mean volume (Bld) [Entitic vol] 10.2 fL Normal 9.5-13.5 [facility] Comment on above: Performed By: #### C BC ####[facility] [address] [place], [place] [address]Qt. Kayy Virgen PLT 265 103/ul Normal 150-450 [facility] Comment on above: Performed By: #### C BC ####[facility] [address] [place], [place] [address]Zs. Kayy Virgen RBC 4.57 106/ul Normal 4.20-5.40 [facility] Comment on above: Performed By: #### C BC ####[facility] [address] [place], [place] [address]Oj. Kayy Virgen WBC 6.5 103/ul Normal 4.0-11.0 [facility] Comment on above: Performed By: #### C BC ####[facility] [address] [place], [place] [address]Zp. Kayy Virgen CT ABD/PELVIS WO CONon 08-31 [...] mild-moderate periappendiceal inflammatory changes. Electronically authenticated by: DANNA HANNA Date: 2021-08-31 12:25 Normal [facility] ER URINE PROFILEon 2 Bilirubin Ql (U) Negative Normal NEGATIVE [facility] Comment on above: Performed By: #### E RUR #### [facility] [address] [place] [address] Dr. Kayy Virgen Clarity (U) CLEAR Normal CLEAR [facility] Comment on above: Performed By: #### E RUR #### [facility] [address] [place] [address] Dr. Kayy Virgen Color (U) LT. YELLOW Normal YELLOW [facility] Comment on above: Performed By: #### E RUR #### [facility] [address] [place] [address] Dr. Kayy Virgen ERUAHD A micrscopic examina tion will be performed if indicated. Normal [facility] Comment on above: Performed By: #### E RUR #### [facility] [address] [place] [address] Dr. Kayy Virgen Glucose Ql (U) Negative Normal NEGATIVE [facility] Comment on above: Performed By: #### E RUR #### [facility] [address] [place] [address] Dr. Kayy Virgen Hemoglobin Ql (U) Negative Normal NEGATIVE [facility] Comment on above: Performed By: #### E RUR #### [facility] [address] [place] [address] Dr. Kayy Virgen Ketones Ql (U) Negative Normal NEGATIVE [facility] Comment on above: Performed By: #### E RUR #### [facility] [address] [place] [address] Dr. Kayy Virgen LEUKOCYTES Negative Normal NEGATIVE [facility] Comment on above: Performed By: #### E RUR #### [facility] [address] [place] [address] Dr. Kayy Virgen Nitrite Ql (U) Negative Normal NEGATIVE [facility] Comment on above: Performed By: #### E RUR #### [facility] [address] [place] [address] Dr. Kayy Virgen pH (U) 6.0 [pH] Normal 5-9 [facility] Comment on above: Performed By: #### E RUR #### [facility] [address] [place] [address] Dr. Kayy Virgen SPEC GRAVITY <=1.005 Abnormal 1.005-<=1.025 [facility] Comment on above: Performed By: #### E RUR #### [facility] [address] [place] [address] Dr. Kayy Virgen UA PROTEIN Negative Normal NEGATIVE/ TRACE [facility] Comment on above: Performed By: #### E RUR #### [facility] [address] [place] [address] Dr. Kayy Virgen UR MICRO IND NOT INDICATED Normal [facility] Comment on above: Performed By: #### E RUR #### [facility] [address] [place] [address] Dr. Kayy Virgen Urobilinogen Qn (U) 0.2 {Cuauhtemoc'U}/dL Normal 0.2 - 1. 0 [facility] Comment on above: Performed By: #### E RUR #### [facility] [address] [place] [address] Dr. Kayy Virgen LIPASEon 08-31-2021 Lipase [Catalytic activity/Vol] 73.0 U/L Normal 73.0-393.0 [facility] Comment on above: Performed By: #### A MY, CMP, LIPA #### [facility] [address] [place] [address] Dr. Kayy Virgen PROF 14(COMP METB)on 022 Albumin [Mass/Vol] 3.6 g/dL Normal 3.4-5.0 [facility] Comment on above: Performed By: #### A MY, CMP, LIPA ####[facility] [address] [address]Dr. Kayy Virgen Albumin/Globulin [Mass ratio] 0.9 {ratio} Normal [facility] Comment on above: Performed By: #### A MY, CMP, LIPA ####[facility] [address] [address]Dr. Kayy Virgen ALP [Catalytic activity/Vol] 98 U/L Normal 46-116 [facility] Comment on above: Performed By: #### A MY, CMP, LIPA ####[facility] [address] [address]Dr. Kayy Virgen ALT [Catalytic activity/Vol] 22 U/L Normal 14-59 [facility] Comment on above: Performed By: #### A MY, CMP, LIPA ####[facility] [address] [address]Dr. Kayy Virgen Anion gap [Moles/Vol] 12.6 mmol/L Normal [facility] Comment on above: Performed By: #### A MY, CMP, LIPA ####[facility] [address] [address]Dr. Kayy Virgen AST [Catalytic activity/Vol] 44 U/L Critically high 15-37 [facility] Comment on above: Performed By: #### A MY, CMP, LIPA ####[facility] [address] [address]Dr. Kayy Virgen Bilirubin [Mass/Vol] 0.5 mg/dL Normal 0.2-1.0 [facility] Comment on above: Performed By: #### A MY, CMP, LIPA ####[facility] [address] [address]Dr. Kayy Virgen Calcium [Mass/Vol] 9.2 mg/dL Normal 8.5-10.1 [facility] Comment on above: Performed By: #### A MY, CMP, LIPA ####[facility] [address] [address]Dr. Kayy Virgen Chloride [Moles/Vol] 104 mmol/L Normal 98-107 [facility] Comment on above: Performed By: #### A MY, CMP, LIPA ####[facility] [address] [address]Dr. Kayy Virgen CO2 [Moles/Vol] 24.3 mmol/L Normal 21.0-32.0 [facility] Comment on above: Performed By: #### A MY, CMP, LIPA ####[facility] [address] [place], [place] [address]Dr. Kayy Virgen Creatinine [Mass/Vol] 0.87 mg/dL Normal 0.55-1.02 [facility] Comment on above: Performed By: #### A MY, CMP, LIPA ####[facility] [address] [place], [place] [address]Dr. Kayy Virgen EGFR-AF COLOMBIAN >60 Normal >=60 [facility] Comment on above: Performed By: #### A MY, CMP, LIPA ####[facility] [address] [place], [place] [address]Dr. Kayy Virgen EGFR-NON AF COLOMBIAN >60 Normal >=60 [facility] Comment on above: Performed By: #### A MY, CMP, LIPA ####[facility] [address] [place], [place] [address]Dr. Kayy Virgen Globulin (S) [Mass/Vol] 4.0 g/dL Normal [facility] Comment on above: Performed By: #### A MY, CMP, LIPA ####[facility] [address] [address]Dr. Kayy Virgen Glucose [Mass/Vol] 96 mg/dL Normal 74-106 [facility] Comment on above: Performed By: #### A MY, CMP, LIPA ####[facility] [address] [address]Dr. Kayy Virgen Potassium [Moles/Vol] 3.9 mmol/L Normal 3.5-5.1 [facility] Comment on above: Performed By: #### A MY, CMP, LIPA ####[facility] [address] [address]Dr. Kayy Virgen Protein [Mass/Vol] 7.6 g/dL Normal 6.4-8.2 [facility] Comment on above: Performed By: #### A MY, CMP, LIPA ####[facility] [address] [address]Dr. Kayy Virgen Sodium [Moles/Vol] 137 mmol/L Normal 136-145 [facility] Comment on above: Performed By: #### A MY, CMP, LIPA ####[facility] [address] [address]Dr. Kayy Virgen Urea nitrogen [Mass/Vol] 11.0 mg/dL Normal 7.0-18.0 [facility] Comment on above: Performed By: #### A MY, CMP, LIPA ####[facility] [address] [id number]. Kayy Virgen Urea nitrogen/Creatinine [Mass ratio] 12.6 mg/mg Normal [facility] Comment on above: Performed By: #### A MY, CMP, LIPA ####[facility] [address] [id number]. Kayy Virgen US THYROID FN ASP BXon 07-05 US THYROID FN ASP BX Begin Addendum #1 COLLECTED DATE/TIME: 06/29/2021 13:56 EDT Final Diagnosis Report for [facility] [place], [place] (A/B) RIGHT THYROID NODULE; FINE NEEDLE [...] (FNA). 2. Pathology results are pending. Normal [facility] US THYROIDon 06-21-2021 US THYROID EXAMINATION: US [...] nodule. Fine needle aspiration recommended TI-RADS: The [employer] TI-RADS committee's white paper recommendations for thyroid lesions classified as TR4 (moderately suspicious) are listed below: > 1.0 cm. Follow-up ultrasound in 1, 2, 3, and 5 years. > 1.5 cm. FNA. J. Am Anais Radiol 2017;14:[id number]. Electronically authenticated by: ENIO MOHAN Date: 2021-06-21 12:10 Normal [facility] US CAROTID ART BILon 022 US CAROTID ART ANDREAS EXAMINATION: US [...] 2.5-4.0 >70 >225 >4.0 Electronically authenticated by: DANNA HANNA Date: 2021-06-08 13:16 Normal [facility] Blood Occult Stool Screen #1 on 10-13-2019 Date, Stool #1 [id number] [facility] [place], [place] Date, Stool [...] 2019 Occult Blood 1 Negative Normal NEG [facility] Comment on above: Performed By: #### O BN #### [facility] [address] [place] [address] Boarding Specialist: Eris Worthy MD Specimen 1 Date [facility] Comment on above: Performed By: #### O BN #### [facility] [address] [place] [address] Boarding Specialist: Eris Worthy MD Specimen 1 Time 1200 Normal [facility] Comment on above: Performed By: #### O BN #### [facility] [address] [place] [address] Boarding Specialist: Eris Worthy MD Specimen 2 Date NOT REPORTED Normal [facility] Comment on above: Performed By: #### O BN #### [facility] [address] [place] [address] Boarding Specialist: Eris Worthy MD Specimen 2 Time NOT REPORTED Normal [facility] Comment on above: Performed By: #### O BN #### [facility] [address] [place] [address] Boarding Specialist: Eris Worthy MD Specimen 3 Date NOT REPORTED Normal [facility] Comment on above: Performed By: #### O BN #### [facility] [address] [place] [address] Boarding Specialist: Eris Worthy MD Specimen 3 Time NOT REPORTED Normal [facility] Comment on above: Performed By: #### O BN #### [facility] [address] [place] [address] Boarding Specialist: Eris Worthy MD Occult Blood 2 NOT REPORTED Normal NEG [facility] Comment on above: Performed By: #### O BN #### [facility] [address] [place] [address] Boarding Specialist: Eris Worthy MD Occult Blood 3 NOT REPORTED Normal NEG [facility] Comment on above: Performed By: #### O BN #### [facility] [address] [place], [place] [id number] Boarding Specialist: Eris Worthy MD Free Thyroxine Indexon 10-07 FTI Ratio 2.0 ug/dL Normal 1.4-3.1 [facility] Comment on above: Performed By: #### F TI, FE #### [facility] [address] [place], [place] [id number] Boarding Specialist: Otoniel Ash MD #### TSH, LIPR, CP, GLYHGB, CDP #### [facility] [address] [place] [address] Boarding Specialist: Eris Worthy MD T4 [Mass/Vol] 29.74 % Normal 22.5-37.0 [facility] Comment on above: Performed By: #### F TI, FE #### [address] [address] Boarding Specialist: Otoniel Ash MD #### TSH, LIPR, CP, GLYHGB, CDP #### [facility] [address] [place] [address] Dr[address] [place], [place] [id number] Boarding Specialist: Eris Worthy MD T4 [Mass/Vol] 6.6 ug/dL Normal 4.5-10.9 [facility] Comment on above: Performed By: #### F TI, FE #### [address] [address] Boarding Specialist: Otoniel Ash MD #### TSH, LIPR, CP, GLYHGB, CDP #### [address] [place] [address] Boarding Specialist: Eris Worthy MD Ironon 10-08-2019 Iron [Mass/Vol] 73 ug/dL Normal 37-145 [facility] Comment on above: Performed By: #### F TI, FE #### [address] [id number] Boarding Specialist: Otoniel Ash MD #### TSH, LIPR, CP, GLYHGB, CDP #### [facility] [address] [place] [address] Dr. [place], [place] [id number] Boarding Specialist: Eris Worthy MD T3 uptake and FTIon 10-08-19 Free Thyroxine Index 2 ug/dL 1.4 - 3.1 ug/dL [place], [place] T4 [Mass/Vol] 29.74 % 22.5 - 37 % [place], [place] T4, Total 6.6 ug/dL 4.5 - 10.9 ug/dL [place] CBC Auto Differentialon 09-16 Basophils (Bld) [#/Vol] 0.07 10*3/uL [place] Basophils/100 WBC (Bld) 1 % 0 - 2 % [place] Differential Type NOT REPORTED [place] Eosinophils (Bld) [#/Vol] 0.06 10*3/uL [place] Eosinophils/100 WBC (Bld) 1 % 1 - 4 % [place] Erythrocyte distribution width (RBC) [Ratio] 14.5 % High 11.8 - 14.4 % [place] Hematocrit (Bld) [Volume fraction] 42.4 % 36.3 - 47.1 % [place] Hemoglobin (Bld) [Mass/Vol] 13.2 g/dL 11.9 - 15.1 g/dL [place] Immature granulocytes (Bld) [#/Vol] 10*3/uL [place] Immature granulocytes (Bld) [#/Vol] 0 % 0 [place] Interpretation and review of laboratory results Abnormal [place] Lymphocytes (Bld) [#/Vol] 1.87 10*3/uL [place] Lymphocytes/100 WBC (Bld) 33 % 24 - 43 % [place] MCH (RBC) [Entitic mass] 26.1 pg 25.2 - 33.5 pg [place] MCHC (RBC) [Mass/Vol] 31.1 g/dL 28.4 - 34.8 g/dL [place] MCV (RBC) [Entitic vol] 84.0 fL 82.6 - 102.9 fL [place] Monocytes (Bld) [#/Vol] 0.45 10*3/uL [place] Monocytes/100 WBC (Bld) 8 % 3 - 12 % [place] Platelet mean volume (Bld) [Entitic vol] 10.1 fL 8.1 - 13.5 fL [place] Platelets (Bld) [#/Vol] 270 10*3/uL [place] Platelets (Bld) [#/Vol] NOT REPORTED [place] RBC (Bld) [#/Vol] 5.05 10*6/uL 3.95 - 5.1 1 m/uL [place] RBC morphology finding Nom (Bld) NOT REPORTED [place] Segmented neutrophils/100 WBC (Bld) 57 % 36 - 65 % [place] Segs Absolute 3.17 [place] WBC (Bld) [#/Vol] 5.6 10*3/uL [place] WBC (Bld) [#/Vol] 0.0 10*3/uL 0.0 per 10 0 WBC [place] WBC Morphology NOT REPORTED [place], [place] CBC with Diffon 10-07-2019 Abs. Basophil 0.07 k/uL Normal 0.00-0.20 [facility] Comment on above: Performed By: #### F HUMBERTO, FE #### [address] [address] Boarding Specialist: Otoniel Ash MD #### TSH, LIPR, CP, GLYHGB, CDP #### [address] [place] [id number] Boarding Specialist: Eris Worthy MD Abs.Imm.Granulocyte <0.03 Normal 0.00-0.30 [facility] Comment on above: Performed By: #### F HUMBERTO, FE #### [place] [id number] Boarding Specialist: Otoniel Ash MD #### TSH, LIPR, CP, GLYHGB, CDP #### [address] [place] [phone] Boarding Specialist: Eris Worthy MD Abs.Neutrophil (Seg) 3.17 k/uL Normal 1.50-8.10 [facility] Comment on above: Performed By: #### F HUMBERTO, FE #### [place] [id number] Boarding Specialist: Otoniel Ash MD #### TSH, LIPR, CP, GLYHGB, CDP #### [address] [place] [id number] Boarding Specialist: Eris Worthy MD Basophils/100 WBC (Bld) 1 % Normal 0-2 [facility] Comment on above: Performed By: #### F TI, FE #### [address] [address] Boarding Specialist: Otoniel Ash MD #### TSH, LIPR, CP, GLYHGB, CDP #### [address] [place] [id number] Boarding Specialist: Eris Worthy MD Eosinophils (Bld) [#/Vol] 0.06 10*3/uL Normal 0.00-0.44 [facility] Comment on above: Performed By: #### F TI, FE #### [place] [id number] Boarding Specialist: Otoniel Ash MD #### TSH, LIPR, CP, GLYHGB, CDP #### [address] [place] [id number] Boarding Specialist: Eris Worthy MD Eosinophils/100 WBC (Bld) 1 % Normal 1-4 [facility] Comment on above: Performed By: #### F TI, FE #### [place] [id number] Boarding Specialist: Otoniel Ash MD #### TSH, LIPR, CP, GLYHGB, CDP #### [address] [place] [id number] Boarding Specialist: Eris Worthy MD Erythrocyte distribution width (RBC) [Ratio] 14.5 % High 11.8-14.4 [facility] Comment on above: Performed By: #### F TI, FE #### [place] [id number] Boarding Specialist: Otoniel Ash MD #### TSH, LIPR, CP, GLYHGB, CDP #### [address] [place] [phone] Boarding Specialist: Eris Worthy MD Hematocrit (Bld) [Volume fraction] 42.4 % Normal 36.3-47.1 [facility] Comment on above: Performed By: #### F TI, FE #### [address] [id number] Boarding Specialist: Otoniel Ash MD #### TSH, LIPR, CP, GLYHGB, CDP #### [address] [place] [phone] Boarding Specialist: Eris Worthy MD Hemoglobin (Bld) [Mass/Vol] 13.2 g/dL Normal 11.9-15.1 [facility] Comment on above: Performed By: #### F TI, FE #### [address] [phone] Boarding Specialist: Otoniel Ash MD #### TSH, LIPR, CP, GLYHGB, CDP #### [address] [place] [phone] Boarding Specialist: Eris Worthy MD Immature granulocytes (Bld) [#/Vol] 0 % Normal 0 [facility] Comment on above: Performed By: #### F TI, FE #### [address] [id number] Boarding Specialist: Otoniel Ash MD #### TSH, LIPR, CP, GLYHGB, CDP #### [address] [place] [phone] Boarding Specialist: Eris Worthy MD Lymphocytes (Bld) [#/Vol] 1.87 10*3/uL Normal 1.10-3.70 [facility] Comment on above: Performed By: #### F TI, FE #### [address] [id number] Boarding Specialist: Otoniel Ash MD #### TSH, LIPR, CP, GLYHGB, CDP #### [facility] [address] [place] [address] Boarding Specialist: Eris Worthy MD Lymphocytes/100 WBC (Bld) 33 % Normal 24-43 [facility] Comment on above: Performed By: #### F TI, FE #### [address] [id number] Boarding Specialist: Otoniel Ash MD #### TSH, LIPR, CP, GLYHGB, CDP #### [facility] [address] [place] [id number] Boarding Specialist: Eris Worthy MD MCH (RBC) [Entitic mass] 26.1 pg Normal 25.2-33.5 [facility] Comment on above: Performed By: #### F TI, FE #### [address] [id number] Boarding Specialist: Otoniel Ash MD #### TSH, LIPR, CP, GLYHGB, CDP #### [address] [place] [facility] Boarding Specialist: Eris Worthy MD MCHC (RBC) [Mass/Vol] 31.1 g/dL Normal 28.4-34.8 [facility] Comment on above: Performed By: #### F TI, FE #### [address] [id number] Boarding Specialist: Otoniel Ash MD #### TSH, LIPR, CP, GLYHGB, CDP #### [facility] [address] [place] [facility] Boarding Specialist: Eris Worthy MD MCV (RBC) [Entitic vol] 84.0 fL Normal 82.6-102.9 [facility] Comment on above: Performed By: #### F TI, FE #### [address] [phone] Boarding Specialist: Otoniel Ash MD #### TSH, LIPR, CP, GLYHGB, CDP #### [address] [place] [id number] Boarding Specialist: Eris Worthy MD Monocytes (Bld) [#/Vol] 0.45 10*3/uL Normal 0.10-1.20 [facility] Comment on above: Performed By: #### F TI, FE #### [address] [phone] Boarding Specialist: Otoniel Ash MD #### TSH, LIPR, CP, GLYHGB, CDP #### [address] [place] [phone] Boarding Specialist: Eris Worthy MD Monocytes/100 WBC (Bld) 8 % Normal 3-12 [facility] Comment on above: Performed By: #### F TI, FE #### [address] [id number] Boarding Specialist: Otoniel Ash MD #### TSH, LIPR, CP, GLYHGB, CDP #### [address] [place] [phone] Boarding Specialist: Eris Worthy MD Neutrophil (Seg) 57 % Normal 36-65 [facility] Comment on above: Performed By: #### F TI, FE #### [address] [address] Boarding Specialist: Otoniel Ash MD #### TSH, LIPR, CP, GLYHGB, CDP #### [address] [place] [phone] Boarding Specialist: Eris Worthy MD NRBC Automated 0.0 per 100 WBC Normal 0.0 [facility] Comment on above: Performed By: #### F TI, FE #### [address] [phone] Boarding Specialist: Otoniel Ash MD #### TSH, LIPR, CP, GLYHGB, CDP #### [facility] [address] [place] [address] Boarding Specialist: Eris Worthy MD Platelet mean volume (Bld) [Entitic vol] 10.1 fL Normal 8.1-13.5 [facility] Comment on above: Performed By: #### F TI, FE #### [address] [address] Boarding Specialist: Otoniel Ash MD #### TSH, LIPR, CP, GLYHGB, CDP #### [address] [place], [place] [phone] Boarding Specialist: Eris Worthy MD Platelets (Bld) [#/Vol] 270 10*3/uL Normal 138-453 [facility] Comment on above: Performed By: #### F TI, FE #### [address] [address] Boarding Specialist: Otoniel Ash MD #### TSH, LIPR, CP, GLYHGB, CDP #### [address] [place], [place] [phone] Boarding Specialist: Eris Worthy MD RBC (Bld) [#/Vol] 5.05 10*6/uL Normal 3.95-5.11 [facility] Comment on above: Performed By: #### F TI, FE #### [address] [address] Boarding Specialist: Otoniel Ash MD #### TSH, LIPR, CP, GLYHGB, CDP #### [facility] [address] [place] [address] Boarding Specialist: Eris Worthy MD WBC (Bld) [#/Vol] 5.6 10*3/uL Normal 3.5-11.3 [facility] Comment on above: Performed By: #### F TI, FE #### [address] [address] Boarding Specialist: Otoniel Ash MD #### TSH, LIPR, CP, GLYHGB, CDP #### [facility] [address] [place] [address] [place], [place] [id number] Boarding Specialist: Eris Worthy MD Auto Diff Performed NOT REPORTED Normal [facility] Comment on above: Performed By: #### F TI, FE #### [address] [address] Boarding Specialist: Otoniel Ash MD #### TSH, LIPR, CP, GLYHGB, CDP #### [address] [place] [phone] Boarding Specialist: Eris Worthy MD Platelets (Bld) [#/Vol] NOT REPORTED Normal [facility] Comment on above: Performed By: #### F TI, FE #### [address] [address] Boarding Specialist: Otoniel Ash MD #### TSH, LIPR, CP, GLYHGB, CDP #### [address] [place] [phone] Boarding Specialist: Eris Worthy MD RBC morphology finding Nom (Bld) NOT REPORTED Normal [facility] Comment on above: Performed By: #### F TI, FE #### [address] [address] Boarding Specialist: Otoniel Ash MD #### TSH, LIPR, CP, GLYHGB, CDP #### [address] [place], [place] [phone] Boarding Specialist: Eris Worthy MD WBC Morphology NOT REPORTED Normal [facility] Comment on above: Performed By: #### F TI, FE #### [address] [phone] Boarding Specialist: Otoniel Ash MD #### TSH, LIPR, CP, GLYHGB, CDP #### [address] [place] [address] Boarding Specialist: Eris Worthy MD Comp Metabolic Profon 2019 (cont.) Normal [facility] Comment on above: Result Comment: Aver age GFR for 60-69 years old: 85 mL/min/1.73sq m Chronic Kidney Disease: <60 mL/min/1.73sq m Kidney failure: <15 mL/min/1.73sq m eGFR calculated using average adult body mass. Additional eGFR calculator available at: http://www.[employer]/multiple_crcl_2011.htm Performed By: #### F TI, FE #### [address] [address] Boarding Specialist: Otoniel Ash MD #### TSH, LIPR, CP, GLYHGB, CDP #### [address] [place] [address] Boarding Specialist: Eris Worthy MD Albumin [Mass/Vol] 4.5 g/dL Normal 3.5-5.2 [facility] Comment on above: Performed By: #### F TI, FE #### [address] [address] Boarding Specialist: Otoniel Ash MD #### TSH, LIPR, CP, GLYHGB, CDP #### [address] [place] [address] Boarding Specialist: Eris Worthy MD Albumin/Globulin [Mass ratio] 1.4 {ratio} Normal 1.0-2.5 [facility] Comment on above: Performed By: #### F TI, FE #### [address] [address] Boarding Specialist: Otoniel Ash MD #### TSH, LIPR, CP, GLYHGB, CDP #### [facility] [address] [place] [address] Boarding Specialist: Eris Worthy MD Alkaline Phos 94 U/L Normal 35-104 [facility] Comment on above: Performed By: #### F TI, FE #### [address] [phone] Boarding Specialist: Otoniel Ash MD #### TSH, LIPR, CP, GLYHGB, CDP #### [facility] [address] [place] [phone] Boarding Specialist: Eris Worthy MD ALT [Catalytic activity/Vol] 10 U/L Normal 5-33 [facility] Comment on above: Performed By: #### F TI, FE #### [address] [phone] Boarding Specialist: Otoniel Ash MD #### TSH, LIPR, CP, GLYHGB, CDP #### [facility] [address] [place] [phone] Boarding Specialist: Eris Worthy MD Anion gap [Moles/Vol] 12 mmol/L Normal 9-17 [facility] Comment on above: Performed By: #### F TI, FE #### [address] [address] Boarding Specialist: Otoniel Ash MD #### TSH, LIPR, CP, GLYHGB, CDP #### [facility] [address] [place] [address] Boarding Specialist: Eris Worthy MD AST [Catalytic activity/Vol] 40 U/L High <32 [facility] Comment on above: Performed By: #### F TI, FE #### [address] [phone] Boarding Specialist: Otoniel Ash MD #### TSH, LIPR, CP, GLYHGB, CDP #### [facility] [address] [place] [address] [place] [address] Boarding Specialist: Eris Worthy MD Bilirubin Ql (U) 0.27 mg/dL Low 0.3-1.2 [facility] Comment on above: Performed By: #### F TI, FE #### [address] [phone] Boarding Specialist: Otoniel Ash MD #### TSH, LIPR, CP, GLYHGB, CDP #### [facility] [address] [place] [address] Dr. [place] [phone] Boarding Specialist: Eris Worthy MD BUN/CRE Ratio 22 High 9-20 [facility] Comment on above: Performed By: #### F TI, FE #### [address] [phone] Boarding Specialist: Otoniel Ash MD #### TSH, LIPR, CP, GLYHGB, CDP #### [facility] [address] [place] [address] Dr. [place] [phone] Boarding Specialist: Eris Worthy MD Calcium [Mass/Vol] 10.0 mg/dL Normal 8.6-10.4 [facility] Comment on above: Performed By: #### F TI, FE #### [address] [id number] Boarding Specialist: Otoniel Ash MD #### TSH, LIPR, CP, GLYHGB, CDP #### [address] [place] [address] Boarding Specialist: Eris Worthy MD Chloride [Moles/Vol] 105 mmol/L Normal 98-107 [facility] Comment on above: Performed By: #### F TI, FE #### [address] [address] Boarding Specialist: Otoniel Ash MD #### TSH, LIPR, CP, GLYHGB, CDP #### [facility] [address] [place] [address] [place] [address] Boarding Specialist: Eris Worthy MD CO2 [Moles/Vol] 21 mmol/L Normal 20-31 [facility] Comment on above: Performed By: #### F TI, FE #### [address] [phone] Boarding Specialist: Otoniel Ash MD #### TSH, LIPR, CP, GLYHGB, CDP #### [facility] [address] [place] [address] Dr. [place] [phone] Boarding Specialist: Eris Worthy MD Creatinine [Mass/Vol] 0.79 mg/dL Normal 0.50-0.90 [facility] Comment on above: Performed By: #### F TI, FE #### [address] [phone] Boarding Specialist: Otoniel Ash MD #### TSH, LIPR, CP, GLYHGB, CDP #### [address] [place] [address] Boarding Specialist: Eris Worthy MD GFR, Amer >60 Normal >60 [facility] Comment on above: Performed By: #### F TI, FE #### [address] [address] Boarding Specialist: Otoniel Ash MD #### TSH, LIPR, CP, GLYHGB, CDP #### [facility] [address] [place] [address] [place] [address] Boarding Specialist: Ersi Worthy MD GFR,non Amer >60 Normal >60 [facility] Comment on above: Performed By: #### F TI, FE #### [address] [phone] Boarding Specialist: Otoniel Ash MD #### TSH, LIPR, CP, GLYHGB, CDP #### [address] [place] [address] Boarding Specialist: Eris Worthy MD Glucose [Mass/Vol] 99 mg/dL Normal 70-99 [facility] Comment on above: Performed By: #### F TI, FE #### [address] [phone] Boarding Specialist: Otoniel Ash MD #### TSH, LIPR, CP, GLYHGB, CDP #### [address] [place] [address] Boarding Specialist: Eris Worthy MD Potassium [Moles/Vol] 4.1 mmol/L Normal 3.7-5.3 [facility] Comment on above: Performed By: #### F TI, FE #### [address] [phone] Boarding Specialist: Otoniel Ash MD #### TSH, LIPR, CP, GLYHGB, CDP #### [address] [place] [address] Boarding Specialist: Eris Worthy MD Protein [Mass/Vol] 7.7 g/dL Normal 6.4-8.3 [facility] Comment on above: Performed By: #### F TI, FE #### [address] [phone] Boarding Specialist: Otoniel Ash MD #### TSH, LIPR, CP, GLYHGB, CDP #### [address] [place] [address] Boarding Specialist: Eris Worthy MD Sodium [Moles/Vol] 138 mmol/L Normal 135-144 [facility] Comment on above: Performed By: #### F TI, FE #### [address] [phone] Boarding Specialist: Otoniel Ash MD #### TSH, LIPR, CP, GLYHGB, CDP #### [facility] [address] [place] [address] [place] [address] Boarding Specialist: Eris Worthy MD Staging: Normal [facility] Comment on above: Result Comment: Stag e 1: Some kidney damage normal GFR Stage 2: Mild kidney damage GFR 60-89 Stage 3: Moderate kidney damage GFR 30-59 Stage 4: Severe kidney damage GFR 15-29 Stage 5: Severe kidney damage GFR <15 ESRD - chronic treatment by dialysis or transplant Performed By: #### F TI, FE #### [address] [address] Boarding Specialist: Otoniel Ash MD #### TSH, LIPR, CP, GLYHGB, CDP #### [address] [place] [address] Boarding Specialist: Eris Worthy MD Urea nitrogen [Mass/Vol] 17 mg/dL Normal - [facility] Comment on above: Performed By: #### F TI, FE #### [address] [address] Boarding Specialist: Otoniel Ash MD #### TSH, LIPR, CP, GLYHGB, CDP #### [facility] [address] [place] [address] [place] [address] Boarding Specialist: Eris Worthy MD [facility] Metabolic [facility] 10-07-2019 Albumin [Mass/Vol] 4.5 g/dL 3.5 - 5.2 g/dL [place], [place] Albumin/Globulin [Mass ratio] 1.4 {ratio} [place] ALP [Catalytic activity/Vol] 94 U/L 35 - 104 U/L [place] ALT [Catalytic activity/Vol] 10 U/L 5 - 33 U/L [place] Anion gap [Moles/Vol] 12 mmol/L 9 - 17 mmol/L [place] AST [Catalytic activity/Vol] 40 U/L High <32 [place] Bilirubin Ql (U) 0.27 mg/dL Low 0.3 - 1.2 mg/dL [place] Bun/Cre Ratio 22 High [place], [place] Calcium [Mass/Vol] 10.0 mg/dL 8.6 - 10. 4 mg/dL [place] Chloride [Moles/Vol] 105 mmol/L 98 - 107 mmol/L [place] CO2 [Moles/Vol] 21 mmol/L 20 - 31 mmol/L [place] Creatinine [Mass/Vol] 0.79 mg/dL 0.5 - 0.9 mg/dL [place] GFR >60 >60 mL/min [place] GFR Non- >60 >60 mL/min [place] Glucose [Mass/Vol] 99 mg/dL 70 - 99 mg/dL [place] Potassium [Moles/Vol] 4.1 mmol/L 3.7 - 5.3 mmol/L [place] Protein [Mass/Vol] 7.7 g/dL 6.4 - 8.3 g/dL [place] Sodium [Moles/Vol] 138 mmol/L 135 - 144 mmol/L [place] Urea nitrogen [Mass/Vol] 17 mg/dL 8 - 23 mg/dL [place] Hemoglobin A1Con 10-07-2019 HbA1c (Bld) [Mass fraction] 5.3 % Normal 4.8-5.9 [facility] Comment on above: Performed By: #### F TI, FE #### [facility] [address] [place] [address] Boarding Specialist: Otoniel Ash MD #### TSH, LIPR, CP, GLYHGB, CDP #### [facility] [address] [place] [address] Boarding Specialist: Eris Worthy MD HbA1c (Bld) [Mass fraction] 105 mg/dL Normal [facility] Comment on above: Result Comment: The ADA and AACC recommend providing the estimated average glucose result to permit better patient understanding of their HBA1c result. Performed By: #### F TI, FE #### [facility] [address] [place] [address] Boarding Specialist: Otoniel Ash MD #### TSH, LIPR, CP, GLYHGB, CDP #### [facility] [address] [place] [address] Boarding Specialist: Eris Worthy MD Glucose [Mass/Vol] 105 mg/dL [place] Comment on above: The ADA and AACC rec ommend providing the estimated average glucose result to permit better patient understanding of their HBA1c result. HbA1c (Bld) [Mass fraction] 5.3 % 4.8 - 5.9 % [place] Ironon 10-07-2019 Iron [Mass/Vol] 73 ug/dL 37 - 145 ug/dL [place] Lipid Panelon 10-07-2019 Cholesterol [Mass/Vol] 229 mg/dL High <200 [place] Comment on above: Cholesterol Guidelines: <200 Desirable 200-240 Borderline >240 Undesirable Cholesterol in HDL [Mass/Vol] 67 mg/dL >40 [place] Comment on above: HDL Guidelines: <40 Undesirable 40-59 Borderline >59 Desirable Cholesterol in LDL [Mass/Vol] 127 mg/dL 0 - 130 mg/dL [place] Comment on above: LDL Guidelines: <100 Desirable 100-129 Near to/above Desirable 130-159 Borderline >159 Undesirable Direct (measured) LDL and calculated LDL are not interchangeable tests. Cholesterol in VLDL [Mass/Vol] NOT REPORTED High 1 - 30 mg/dL [place] Cholesterol.total/C holesterol in HDL [Mass ratio] 3.4 {ratio} <5 [place] Triglyceride [Mass/Vol] 175 mg/dL High <150 [place] Comment on above: Triglyceride Guidelines: <150 Desirable 150-199 Borderline 200-499 High >499 Very high Based on AHA Guidelines for fasting triglyceride, December 2011. Lipid Profileon 10-07-2019 Cholesterol [Mass/Vol] 229 mg/dL High <200 [facility] Comment on above: Result Comment: Cholesterol Guidelines: <200 Desirable 200-240 Borderline >240 Undesirable Performed By: #### F TI, FE #### [address] [address] Boarding Specialist: Otoniel Ash MD #### TSH, LIPR, CP, GLYHGB, CDP #### [facility] [address] [place] [address] Dr. [place] [phone] Boarding Specialist: Eris Worthy MD Cholesterol in HDL [Mass/Vol] 67 mg/dL Normal >40 [facility] Comment on above: Result Comment: HDL Guidelines: <40 Undesirable 40-59 Borderline >59 Desirable Performed By: #### F TI, FE #### [address] [address] Boarding Specialist: Otoniel Ash MD #### TSH, LIPR, CP, GLYHGB, CDP #### [address] [place] [phone] Boarding Specialist: Eris Worthy MD Cholesterol in LDL [Mass/Vol] 127 mg/dL Normal 0-130 [facility] Comment on above: Result Comment: LDL Guidelines: <100 Desirable 100-129 Near to/above Desirable 130-159 Borderline >159 Undesirable Direct (measured) LDL and calculated LDL are not interchangeable tests. Performed By: #### F TI, FE #### [address] [address] Boarding Specialist: Otoniel Ash MD #### TSH, LIPR, CP, GLYHGB, CDP #### [address] [place] [phone] Boarding Specialist: Eris Worthy MD Cholesterol.total/C holesterol in HDL [Mass ratio] 3.4 {ratio} Normal <5 [facility] Comment on above: Performed By: #### F TI, FE #### [address] [address] Boarding Specialist: Otoniel Ash MD #### TSH, LIPR, CP, GLYHGB, CDP #### [facility] [address] [place] [address] Boarding Specialist: Eris Worthy MD Triglyceride [Mass/Vol] 175 mg/dL High <150 [facility] Comment on above: Result Comment: Triglyceride Guidelines: <150 Desirable 150-199 Borderline 200-499 High >499 Very high Based on AHA Guidelines for fasting triglyceride, December 2011. Performed By: #### F TI, FE #### [address] [id number] Boarding Specialist: Otoniel Ash MD #### TSH, LIPR, CP, GLYHGB, CDP #### [facility] [address] [place] [address] Boarding Specialist: Eris Worthy MD Cholesterol in VLDL [Mass/Vol] NOT REPORTED Normal 04-16 [facility] Comment on above: Performed By: #### F TI, FE #### [place] [id number] [place], [place] [id number] Boarding Specialist: Otoniel Ash MD #### TSH, LIPR, CP, GLYHGB, CDP #### [facility] [address] [place] [address] Boarding Specialist: Eris Worthy MD Metabolic Panelon 10-07-2019 GFR/1.73 sq M predicted among non-blacks MDRD (S/P/Bld) [Vol rate/Area] [facility], [place] Comment on above: Stage 1: Some kidney [...] body mass. Additional eGFR calculator available at: http://www.[employer]/multiple_crcl_2012.htm Otheron 10-07-2019 Interpretation and review of laboratory results Abnormal [place], [place] TSH without Reflexon 020 TSH Qn 1.12 m[IU]/L [place], [place] Thyroid Stim. Horm.on 2019 TSH Qn 1.12 m[IU]/L Normal 0.30-5.00 [facility] Comment on above: Performed By: #### F TI, FE #### [facility] [address] [place], [place] [id number] Boarding Specialist: Otoniel Ash MD #### TSH, LIPR, CP, GLYHGB, CDP #### [facility] [address] [place] [address] Boarding Specialist: Eris Worthy MD Operative Reporton 8 Operative Report MR#: [id number] [facility] Pt. Name: Xena Ewing Room #: 0C Discharge Date: Birthdate: 1955 OPERATIVE REPORTDATE OF SURGERY: 03/17/2018SURGEON: Bart Holcomb M.D.COLD ROLLER: Carlton Galicia M.D.PREOPERATIVE DIAGNOSIS: Right recurrent de [...] for the entire procedure. Date Dict: 03/17/2018/10:00 Finn/Chad Andino Trans: 03/17/2018 11:55 A/Marissa_JN:[id number] cc: Anamika Valle M.D. [address] [place] [facility] [id number] Normal [facility] POC GLUCOSE LABon 03-17-2018 Glucose mass conc 89 mg/dL Normal 70-100 [facility] Comment on above: Performed By: #### 8 5499 ####[facility] Vital Signs Date Time Vital Sign Value Performing Clinician Morena sahu 10-23-2022 11:130400 Body height 165.1 cm Claire Morales MD Work Phone: [facility] 10-23-2022 11:040 Body weight 73.07 kg Claire Morales MD Work Phone: [facility] 10-23-2022 11:040 Diastolic blood pressure 71 mm[Hg] Claire Morales MD Work Phone: [facility] 10-23-2022 11:040 Heart rate 77 /min Claire Morales MD Work Phone: [facility] 10-23-2022 11:[id number] Systolic blood pressure 125 mm[Hg] Claire Morales MD Work Phone: [facility] Encounters Encounter Date Encounter Type Care Provider Facility Start: 12-27-2023 End: 12-27-2023 Patient encounter procedure MD Anamika Valle Work Phone: [facility] Work Phone: Start: 12-27-2023 End: 12-27-2023 ambulatory Referral Self Facility:[facility] Start: 12-17-2023 End: 12-17-2023 Bamboo flowsheet Lucy A Felter THEATER EDUCATION TEACHER-[employer] LEAD TEACHER Work Phone: [facility] Start: 12-17-2023 End: 12-17-2023 Bamboo flowsheet Lucy A Felter THEATER EDUCATION TEACHER-[employer] LEAD TEACHER Work Phone: [facility] Start: 12-17-2023 End: 12-17-2023 Office outpatient new 20 minutes Lucy A Ramakrishnaer THEATER EDUCATION TEACHER-[employer]ESS[employer] LEAD TEACHER Work Phone: [facility] Comment on above: Other nonthrombocyto penic purpura (CMS/HCC) (Primary Dx); Actinic keratosis Start: 12-17-2023 End: 12-17-2023 ambulatory LUCY ESCOBAR Not Available Start: 07-31-2023 End: 07-31-2023 ambulatory MONIE NAVARRO Not Available Start: 07-03-2023 End: 07-03-2023 ambulatory MONIE Harrington LIEBENTHAL Not Available Start: 05-29-2023 End: 05-29-2023 ambulatory DESI CURRY Not Available Start: 05-09-2023 End: 05-09-2023 ambulatory MONIE RENEEBENTHAL Not Available Start: 03-28-2023 End: 03-28-2023 ambulatory MONIE RENEEBENTHAL Not Available Start: 01-30-2023 End: 01-30-2023 ambulatory MONIE COYLENTHAL Not Available Start: 12-24-2022 End: 12-24-2022 ambulatory MD Anamika Valle Work Phone: [facility] Work Phone: Start: 12-24-2022 End: 12-24-2022 Patient encounter procedure MD Anamika Valle Work Phone: [facility] Work Phone: Start: 10-23-2022 End: 10-24-2022 ambulatory ANAMIKA VALLE Facility:[facility] Start: 10-23-2022 End: 10-23-2022 Patient encounter procedure Claire Morales MD Work Phone: General Surgery Comment on above: Ventral hernia witho ut obstruction or gangrene (Primary Dx) Start: 09-14-2022 ambulatory Rubén MANUEL Facility :[facility] Start: 04-19-2022 End: 04-19-2022 ambulatory DESTINI DOOLEY Facility:[facility] Start: 01-05-2022 End: 01-06-[address] ANAMIKA VALLE Facility:[facility] Start: 12-21-2021 End: 12-21-2021 ambulatory MD Anamika Valle Work Phone: [facility] Work Phone: Start: 12-21-2021 End: 12-21-2021 Patient encounter procedure MD [facility] Val[facility] Start: 11-09-2021 End: 11-10-[address] ANAMIKA VALLE Facility:[facility] Start: 08-31-2021 End: 08-31-[address] ANAMIKA VALLE Facility:[facility] Start: 06-29-2021 End: 06-29-[address] ANAMIKA VALLE Facility:[facility] Start: 06-21-2021 End: 06-22-[address] ANAMIKA VALLE Facility:[facility] Start: 06-08-2021 End: 06-09-[address] ANAMIKA VALLE Facility:[facility] Start: 10-13-2019 End: 10-14-2019 Patient encounter procedure [facility] Start: 10-13-2019 End: 10-13-2019 Subsequent hospital visit by physician Anamika Valle [facility] Start: 10-07-2019 End: 10-08-2019 Patient encounter procedure [facility] Start: 10-07-2019 End: 10-07-2019 Subsequent hospital visit by physician [facility] Lab Drawing Room [facility] Laboratory Comment on above: Arrived Start: 03-17-2018 End: 03-18-2018 Patient encounter procedure GIOVANI JI Facility:[facility] Start: 02-14-2018 End: 02-15-2018 Patient encounter procedure DEFAULT PHYSICIAN Facility:[facility] Procedures Date Procedure Procedure Detail Performing Clinician Start: 12-27-2023 Screening mammograph y of bilateral breasts MD Anamika Valle Work Phone: Start: 12-17-2023 CRYOTHERAPY SKIN LESION Lucy Finn Escobar THEATER EDUCATION TEACH[employer]era Work Phone: Start: 12-24-2022 Screening mammograph y of bilateral breasts MD Anamika Valle Work Phone: Start: 04-19-2022 Mammography Lucy alvarez [employer] Work Phone: Start: 12-21-2021 Screening mammograph y of bilateral breasts MD Anamika Valle Work Phone: Start: 10-13-2019 Virus centrifuge enh ncd id imfluor stain juan diego VALLE Start: 10-13-2019 BLOOD OCCULT STOOL S CREEN #1 Anamika M Tori Work Phone: Start: 10-07-2019 Assay of iron [...] Start: 10-07-2019 Assay of iron Anamika M Hobabar Work Phone: Start: 10-07-2019 Assay of thyroid stimulating hormone tsh Anamika M Tori Work Phone: Start: 10-07-2019 Blood count complete auto&auto difrntl wbc Anamika M Tori Work Phone: Start: 10-07-2019 Comprehensive metabo lic panel Anamika M Tori Work Phone: Start: 10-07-2019 Hemoglobin glycosylated a1c Anamika Valle Work Phone: Start: 10-07-2019 Lipid panel Anamika M Tori Work Phone: Start: 10-07-2019 Thyroid horm uptk/th yroid hormone binding ratio Anamika Valle Work Phone: Start: 03-17-2018 ANESTH LOWER ARM SURGERY [facility]OUCHRA HARPER Start: 03-17-2018 INCISION OF TENDON SHEATH ABDULAZIM JI Plan of Treatment Date Care Activity Detail Author Start: 06-01-2028 DTaP/Tdap/Td vaccine (2 - Td) DTaP/Tdap/Td vaccine (2 - Td) [place], [place] Start: 10-06-2024 Lipid panel Lipid screen [place], [place] Start: 06-01-2024 End: 06-01-2024 Patient encounter procedure 06/01/2024 11:00 AM EDT Office Visit [facility] [address] [place] [address] [place] [address] Desi Curry, DO [address] [facility] [place] [address] [facility] Start: 12-17-2023 End: 12-17-2023 Patient encounter procedure 12/17/2023 11:05 AM EDT Office Visit [facility] [address] [place] [id number] Lucy Escobar, THEATER EDUCATION TEACHER-MONTESSORI LEAD TEACHER [address] [place] [address] Arrived [facility] Comment on above: Arrived Start: 11-17-2023 Influenza vaccination Influenza Vacc ine (#1) [facility] Start: 04-19-2023 Screening for malign ant neoplasm of breast Mammogram [facility] Start: 11-16-2022 Influenza vaccination INFLUENZA (#1) [facility] Start: 04-21-2022 COVID-19 VACCINE (5 - Pfizer series) COVID-19 VACCINE (5 - Pfizer series) [facility] Start: 03-18-2022 ADVANCE DIRECTIVE DISCUSSION ADVANCE DIRECTIVE DISCUSSION [facility] Start: 03-18-2022 DEPRESSION ASSESSMENT DEPRESSION ASS ESSMENT [facility] Start: 2021 BONE DENSITY BONE DENSITY [facility] Start: 2021 Pneumococcal Vaccine : 65+ Years (2 of 2 - PCV) Pneumococcal Vaccine: 65+ Years (2 of 2 - PCV) [facility] Start: 11-17-2019 Influenza vaccination Flu vaccine (# 1) [place], [place] Start: 2006 Influenza vaccination LUNG CANCER SC REENING [facility] Start: 2006 Screening for malign ant neoplasm of breast Breast cancer screen [place], [place] Start: 2006 Screening for malign ant neoplasm of colon Colon cancer screen colonoscopy [place], [place] Start: 2006 Shingles Vaccine (1 of 2) Shingles Vaccine (1 of 2) [place] Start: 2006 SHINGRIX VACCINE (1 of 2) SHINGRIX VACCINE (1 of 2) [facility] Start: 2001 COLOGUARD (FIT-DNA) COLOGUARD (FIT-D NA) [facility] Start: 2001 Colonoscopy COLONOSCOPY [facility] Start: 2001 COLORECTAL CANCER SCREENING COLORECTAL CANCER SCREENING [facility] Start: [address] COLONOGRAPHY [facility] Start: 2001 DIABETES SCREEN DIABETES SCREEN [facility] Start: 2001 FECAL OCCULT BLOOD FECAL OCCULT BLOO D [facility] Start: 2001 LIPID SCREEN LIPID SCREEN [facility] Start: 2001 SIGMOIDOSCOPY SIGMOIDOSCOPY [facility] Start: 1996 Lipid panel Lipid screen [place], [place] Start: 1996 Mammography MAMMOGRAM [facility] Start: 1977 Screening for malign ant neoplasm of cervix Cervical cancer screen [place], [place] Start: 12-12-1975 Urine microalbumin profile DTAP,TDAP,TD (1 - Tdap) [facility] Start: 1974 HEPATITIS C SCREENING HEPATITIS C [facility] Start: 1974 HIV SCREENING HIV SCREENING [facility] Start: 12-12-1971 HIV screening HIV screen [place], [place] Start: 1962 PNEUMOCOCCAL: 65+ (1 - PCV) PNEUMOCOCCAL: 65+ (1 - PCV) [facility] Start: 1956 Hepatitis C screening Hepatitis C [place], [place] Start: 1956 Screening for malign ant neoplasm of colon [facility] Immunizations Immunization Date Immunization Notes Care Provider Angie stacy 06-05-2018 influenza virus vaccine, unspecified formulation Lucy Escobar APRN-MONTESSORI LEAD TEACHER Work Phone: [facility] 06-01-2018 tetanus toxoid, redu tu diphtheria toxoid, and acellular pertussis vaccine, adsorbed Mth Room [place], [place] Payers Date Payer Category Payer Self-pay [id number] 2023 Medicare [id number] 2022 Medicare [id number] 2019 Unknown [id number] 2019 Unknown [employer] - EXCHANGE [id number] 2019-Present [phone] [address] [place] [address] [id number] 1959 Medicare [id number] 1959 Medicare [id number] [address] [facility] [id number] 1956 Unknown [id number] 2.16.840.1.509175.3.579.2.6 47 1956 Unknown [id number] 2.16.840.1.615050.3.579.2.6 47 1956 Unknown [id number] 2.16.840.1.714179.3.579.2.1 73 1956 Unknown [id number] 2.16.840.1.215232.3.579.2.1 73 1956 Unknown [id number] 2.16.840.1.715794.3.579.2.5 93 1956 Unknown [id number] 2.16.840.1.078638.3.579.2.5 93 1956 Unknown [id number] 2.16.840.1.097557.3.579.2.5 93 1956 Unknown [id number] 2.16.840.1.152381.3.579.2.5 93 1956 Unknown [id number] 2.16.840.1.790477.3.579.2.5 93 1956 Unknown [id number] 2.16.840.1.815131.3.579.2.5 93 1956 Unknown [id number] 2.16.840.1.830567.3.579.2.5 93 1956 Unknown [id number] 2.16.840.1.357527.3.579.2.7 27 1956 Unknown [id number] 2.16.840.1.981133.3.579.2.1 259 1956 Unknown [id number] 2.16.840.1.259100.3.579.2.1 259 1956 Unknown [id number] 2.16.840.1.700818.3.579.2.1 259 1956 Unknown [id number] 2.16.840.1.016087.3.579.2.1 259 1956 Unknown [id number] 2.16.840.1.857717.3.579.2.1 259 1956 Unknown [id number] 2.16.840.1.640648.3.579.2.1 259 1956 Unknown [id number] 2.16.840.1.240871.3.579.2.1 259 Medicare Medicare [id number] Unknown [id number] Unknown Unknown HCAP/HFA/FAP Active [id number] Unknown [id number] 2.16.840.1.290142.3.579.2.5 31 Social History Date Type Detail Facility Start: 05-31-2018 Tobacco smoking stat [facility] Former smoker [place], [place] Start: 05-31-2018 Alcohol intake Ex-drinker (finding) [place], [place] Start: 1955 Sex Assigned At Not on file M [place], [place] Exposure to SARS-CoV -2 (event) Not sure [place], [place] Start: 1955 Sex Assigned At Female F [facility] Start: 10-23-2022 Tobacco smoking stat us NHIS Smokes tobacco daily [facility] tobacco use [facility] Start: 10-23-2022 End: 12-17-2023 Cigarettes smoked current (pack per day) - Reported 1 [facility] Start: 10-23-2022 Tobacco use and exposure User of smokeless tobacco [facility] Start: 10-23-2022 End: 12-17-2023 Alcohol intake Lifetime non-drinker (finding) [facility] Start: 10-23-2022 End: 12-17-2023 Tobacco use panel [facility] Start: 10-23-2022 Tobacco [facility] Start: 09-21-2022 Tobacco smoking stat [facility] Never smoked tobacco [facility] Start: 04-27-2023 Alcohol Comment Caffine intake : 2-3 cups per day, coffee; tea [facility] History of Present illness Narrative 12-17-2023 Lucy Escobar, THEATER EDUCATION TEACHER-MONTESSORI LEAD TEACHER - 12/17/2023 11:05 AM EDT Note Date & Type Note Facility 12-17-2023 History of Presen t illness Narrative Lesions: Location: arms and legs Duration: about a month Quality: denies pain, denies itch Modifying factors: denies Associated symptoms: ' red spots' Treatments: lotion for dark spots New patient All pertinent medical history, medications, and allergies were reviewed. General Exam: alert , oriented to person, place, and time , normal affect, well appearing Unaccompanied A focused exam completed based on patient reported problems, see below: 1. Other nonthrombocytopenic purpura (CMS/HCC) (4) Left Forearm - Anterior, Left Lower Leg - Anterior, Right Forearm - Anterior, Right Lower Leg - Anterior Red or purple discolored spots on the skin Counseling and reassurance given. No treatment necessary. 2. Actinic keratosis Right Hand - Posterior Erythematous scaly papules Patient was counseled regarding these sun-induced growths that can develop into squamous cell carcinoma if left untreated. Discussed treatment with cryotherapy. It was emphasized that any treated lesions that fail to resolve should be re-evaluated. 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 Method: Liquid nitrogen was used to treat the lesion(s) with two 5-10 second freeze-thaw cycles. Number of lesions treated: 1 Post-procedure instructions: Instructions were given orally and in writing. The office will be contacted if the lesion fails to resolve despite treatment, or if a side effect develops such as abnormal crusting, scabbing, redness or tenderness Cryotherapy, skin lesion - Right Hand - Posterior Next Visit: prn for any new/changing lesions documented in this encounter [facility] Healthcare Progress note 10-23-2022 Note Date & Type Note Facility 10-23-2022 Note HNO ID: [id number] Author: Claire Morales MD Service: ? Author [...] cc: Referring provider Anamika Valle [address] [facility] [address] Medical Decision Making: Problems: Low: Stable chronic illness Data: Independent interpretation of test from other physician/QHCP Medical Decision Making Level: 3 - Low [facility] History of Present illness Narrative 10-23-2022 [...] Surgery cc: Referring provider Anamika Valle [address] [facility] [address] Medical Decision Making: Problems: Low: Stable chronic illness Data: Independent interpretation of test from other physician/QHCP Medical Decision Making Level: 3 - Low documented in this encounter [facility] Clinical Note 08-31-2021 Note Date & Type Note Facility 08-31-2021 Note OPERATIVE NOTE OPERATION DATE: 08/31/2021 PREOPERATIVE DIAGNOSIS: Acute appendicitis. POSTOPERATIVE DIAGNOSIS: Acute appendicitis. PROCEDURE PERFORMED: Laparoscopic appendectomy. SURGEON: Eris Rehman M.D. COLD ROLLER: PINA Corona ANESTHESIA: General, 0.5% Marcaine for [...] taken to the PACU in fair condition. [facility] Signed and Approved by: DR ERIS REHMAN . 09/15/2021 06:33:00 [facility] Evaluation note Note Date & Type Note Facility Evaluation note [facility] Evaluation note Note Date & Type Note Facility Evaluation note Diagnosis Ventral hernia without obstruction or gangrene- Primary Ventral hernia, unspecified, without mention of obstruction or gangrene documented in this encounter [facility] Evaluation note Note Date & Type Note Facility Evaluation note Diagnosis Other nonthrombocytopenic purpura (CMS/HCC)- Primary Actinic keratosis documented in this encounter [facility] Summary Purpose Family History No Family History Records FoundNo Family History Records FoundNo Family History Records FoundNo Family History Records FoundNo Family History Records FoundNo Family History Records FoundNo Family History Records Found Advance Directives Documents on File Type Date Recorded Patient Cause Analyst Expl anation Advance Directives and Living Will 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 [employer]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 Advance Directive Response Recorded Date/ Time Advance Directives No June 06, 2 018 3:52pm Chief Complaint and Reason for Visit Chief Complaint Screening Additional Source Comments INFORMATION SOURCE (unrecogn ized section and content) DATE CREATED AUTHOR 03/21/2018 [facility] DATE CREATED AUTHOR AUTHOR'S ORGANIZ ATION 10/14/2019 [facility] DATE CREATED AUTHOR AUTHOR'S ORGANIZ ATION 04/27/2022 [facility] DATE CREATED AUTHOR AUTHOR'S ORGANIZ ATION 09/17/2022 [facility] DATE CREATED AUTHOR AUTHOR'S ORGANIZ ATION 10/27/2022 [facility] DATE CREATED AUTHOR AUTHOR'S ORGANIZ ATION 12/18/2023 [facility] DATE CREATED AUTHOR AUTHOR'S ORGANIZ ATION 12/29/2023 [facility] Care Teams (unrecognized sec tion and content) Team Status: Active Member Role Status Dates Anamika Valle MD Primary Care Provider Active Team Status: Inactive Member Role Status Dates Anamika Valle MD Primary Care Provider Active Referral Self Attending Provider Active Home Day Care Provider Relationship Specialty Start Date End Date Anamika Valle MD PCP - General 10/24/04 Anamika Valle MD [address] [place] [address] Referring Family Medicine 10/05/22 Home Day Care Provider Relationship Specialty Start Date End Date Anamika Valle MD [address] [place] [address] PCP - General Family Medicine 09/21/22 Home Day Care Provider Relationship Specialty Start Date End Date Anamika Valle MD [address] [place] [address] PCP - General Family Medicine 09/21/22 Team Status: Inactive Member Role Status Dates Anamika Valle MD Primary Care Provide r, Referring Provider Active Start: December 27, 2023 End: December 27, 2023 Referral Self Attending Provider Active Start: O ctober 2023 End: December 27, 2023 Goals (unrecognized section and content) Goals may be documented in a n alternate sectionGoals may be documented in an alternate sectionGoals may be documented in an alternate section Source Comments (unrecognize d section and content) In the event this informatio n is protected by the Federal Confidentiality of Alcohol and Drug Abuse Patient Records regulations: The Federal rules restrict any use of the information to criminally investigate or prosecute any alcohol or drug abuse patient.[facility] Reason for Visit (unrecogniz ed section and content) Reason Comments New Patient Reason Comments Suspicious Skin Lesion FOR RECORDS PERTAINING TO PATIENTS WHO ARE [...] BE BASED ON THE PRIMARY CLINICAL RECORDS. [facility] [employer] [facility]. provides no warranty or guarantee of the accuracy or completeness of information in this document.
[2024-01-01 10:36] LABS: Basophils Percent Auto 1.2 % (0.2-2.0); Eosinophils Absolute Auto 0.1 10^3/uL (0.0-0.7); Eosinophils Percent Auto 3.1 % (0.9-7.0); Hematocrit 37.4 % (36.0-48.0); Hemoglobin 12.1 g/dL (12.0-16.0); Lymphocytes Absolute Auto 1.3 10^3/uL (1.2-3.8); Lymphocytes Percent Auto 38.3 % (20.5-60.0); Mean Corpuscular HGB Conc 32.4 g/dL (29.9-35.2); Mean Corpuscular Hemoglobin 27.3 pg (26.7-34.0); Mean Corpuscular Volume 84.4 fL (81.0-99.0); Mean Platelet Volume 9.6 fL (9.5-13.5); Monocytes Absolute Auto 0.3 10^3/uL (0.3-0.8); Monocytes Percent Auto 10.4 % (1.7-12.0); Neutrophils Absolute Auto 1.5 10^3/uL (1.4-6.5); Platelet Count 260 10^3/uL (150-450); Red Blood Count 4.43 10^6/uL (4.20-5.40); Red Cell Distribution Width 13.7 % (11.0-15.0); White Blood Count 3.3 10^3/uL (4.0-11.0)
[2024-01-01 10:50] LABS: INR 1.01; Partial Thromboplastin Time 28.6 sec (22.3-36.2); Prothrombin Time 10.7 sec (9.0-11.6)
[2024-01-01 11:45] LABS: Alanine Aminotransferase 22 U/L (14-59); Albumin Level 3.7 g/dL (3.4-5.0); Alkaline Phosphatase 71 U/L (46-116); Anion Gap 14.8; Aspartate Amino Transferase 73 U/L (15-37); BUN Creatinine Ratio 14.6; Bilirubin Total 0.3 mg/dL (0.2-1.0); Calcium 9.7 mg/dL (8.5-10.1); Carbon Dioxide 26.2 mmol/L (21.0-32.0); Chloride 105 mmol/L (98-107); Estimated GFR (African America >60 (>=60 mL/min/1.73m^2); Estimated GFR (Non-African Ame 53 (>=60 mL/min/1.73m^2); Globulin 3.6 g/dL; Glucose 80 mg/dL (74-106); Sodium 142 mmol/L (136-145); Thyroid Stimulating Hormone 1.019 uIU/mL (0.358-3.740); Total Protein 7.3 g/dL (6.4-8.2)
[2024-01-01 11:47] LABS: Free T4 0.92 ng/dL (0.76-1.46)
[2024-01-02 05:08] LABS: Vitamin B12 299 pg/mL (232-1245)
== END 2024-01-01 09:53 | disposition home or self-care (01) ==
LOC: LAB 09:54
PROVIDERS: PCP Family Medicine; Visit Provider Family Medicine
DX: R23.3 Spontaneous ecchymoses (principal); Z12.12 Encounter for screening for malignant neoplasm of rectum; D64.9 Anemia, unspecified; E03.9 Hypothyroidism, unspecified
CPT/HCPCS: 36415; 80053; 82607; 82728; 82746; 83540; 84439; 84443; 85025; 85610; 85730

== ENCOUNTER 2024-01-04 07:04 | Outpatient (REF) | payer MEDICARE, SELFPAY ==
[2024-01-05 18:23] LABS: Occult Blood Positive
[2024-01-05 18:24] LABS: Internal Control Within Normal Limits
--- OUTSIDE RECORDS SUMMARY | 2024-01-06 07:08 | XMS_ITS | CCD ---
Author Organization [facility] Care Team Providers Care Prior Authorization Technician Name Role Phone PHYSICIAN, DEFAULT Unavailable Unavailable PHYSICIAN, DEFAULT Unavailable Unavailable HOY ANAMIKA Unavailable Unavailable JI, ABDULAZIM Unavailable Unavailable JI, ABDULAZIM Unavailable Unavailable HONohemy ANAMIKA Unavailable Unavailable JANINE VALLELAS Unavailable Unavailable SC Unavailable Unavailable JI, ABDULAZIM Unavailable Unavailable SC Unavailable Unavailable BOUCHRA HARPER Unavailable Unavailable ANAMIKA [...] ANAMIKA VALLE Primary Care Unavailable WIECEK, DR ELISABETH Irwin Admitting Unavailable WIECEK, DR ELISABETH Irwin Attending Unavailable WIECEK, DR ELISABETH Irwin Consulting Unavailable Corrine, DR Decker Consulting [...] Unavailable DR ANAMIKA VALLE Primary Care Unavailable MAKAYLA, DR WILLSON Consulting Unavailable MAKAYLA, DR WILLSON Admitting Unavailable DR ANAMIKA VALLE Attending Unavailable DR ANAMIKA VALLE Primary Care Unavailable DR ANAMIKA VALLE Consulting Unavailable MARQUES, DR ENIO Vasquez Consulting Unavailable DESTINI DOOLEY Admitting Unavailable DESTINI DOOLEY Attending Unavailable DR ANAMIKA VALLE Primary Care Unavailable DESTINI DOOLEY Consulting Unavailable Rubén MANUEL Attending Unavailable Anamika Valle Referring Unavailable Anamika Valle MD Primary Care Provider [phone] Anamika Valle MD Unavailable ANAMIKA VALLE Referring Unavailable ANAMIKA VALLE Primary Care Unavailable CLAIRE MORALES Attending Unavailable MD Anamika Valle Primary Care Provider [phone] Self, Referral Attending Provider Unavailable Anamika Valle MD Primary Care Provider [phone] MONIE NAVARRO Attending Unavailable MONIE NAVARRO Attending Unavailable MONIE NAVARRO Attending Unavailable SEVERO CURRY Attending Unavailable MONIE NAVARRO Attending Unavailable MONIE NAVARRO Attending Unavailable SHIRIN ESCOBAR Attending Unavailable MD Anamika Valle Primary Care Provider [phone] MD Anamika Valle Referring Provider [phone] Self, Referral Attending Provider Unavailable Anamika Valle Referring Unavailable Anamika Valle Primary Care Unavailable Self, Referral Attending Unavailable Self, Referral Admitting Unavailable Allergies Allergy Classification Reported Allergen(s) Allergy Type Date of Onset Reaction(s) Facility (9 sources) Codeine; Translations: [CODEINE] Drug Allergy 5 Nausea Only [facility] (1 source) Etodolac Drug Allergy 7 [facility] (1 source) no latex allergy [Other] Propensity to adverse reactions 5 [facility] (4 sources) OTHER; Translations: [OTHER] Propensity to adverse reactions (disorder) 5 [facility] (3 sources) Etodolac Allergy to substance 3 [facility] (3 sources) Sulfonamides (Antibiotic) Drug Allergy 2 Hives [facility] (1 source) Unable to Assess Drug allergy (disorder) 9 [facility] Medications Current Medications [...] diego th every 12 hours. estrogens, conjugated (group home) 0.625 mg oral tablet (1 source) Estrogen [...] conditions (not mental disorders or infectious disease) (5 sources) Encounter for screening for malignant neoplasm of cervix; Translations: [Encounter for screening mammogram for malignant neoplasm of breast] Onset: 3 Episodic Other skin disorders (2 [...] n 12-27-2023 MM screening mammo BI w/CAD [facility] [place] [address] Mammography Report Signed Patient: Xena Ewing MR#: [id number] : 1955 Acct:[id number] Age/Sex: 68 / F ADM Date: 12/27/23 Loc: [place] Room: Type: [facility] Attending Dr: Referral Self Copies to: Anamika [...] Schmidt Jr., D.O.12/27/2023 1:07 PM Dictation Location: [facility] Transcribed By: PINO 12/27/231306 Dictated By: Blake Schmidt Jr, DO 12/27/231303 Signed By: 12/27/231306 Normal [facility] Panel Informationon 12-16 [facility] CNOV 10-23-2022 CNOV Office Visit (GENBMI ) -------- XENA EWING ([id number]) 1955 [facility] Date Time Provider Department 10/23/22 11:30 AM [...] Surgery cc: Referring provider Anamika Valle [address] [facility] [address] Medical Decision Making: Problems: Low: Stable chronic illness Data: [facility] Decision Making Level: 3 - Low Referring Provider: ANAMIKA VALLE [[id number]] Allergies As of Date: 10/23/2022 Noted Allergy [...] ANXIETY - (more content not included)... Normal [facility] Physician Referralon 023 Physician Referral [id number]: [id number] Normal [facility] PAP ACOG PANEL 2: 30 to 65on 04-26-2022 . . Normal [facility] Comment on above: Result Comment: Perf ormed at: WB Performed By: #### 4 [id number] #### [facility] [address] [address] [address] Kayy Virgen Age Gdln ACOG Testing 30-65 Normal [facility] Comment on above: Performed By: #### 4 [id number] #### [facility] [address] [place] [address] Dr. Kayy Virgen DIAGNOSIS: Comment Normal [facility] Comment on above: Result Comment: UNSA TISFACTORY FOR EVALUATION. Performed at: WB Performed By: #### 4 [id number] #### [facility] [address] [place] [address] Dr. Kayy Virgen HPV Aptima Negative Normal Negative [facility] Comment on above: Result Comment: This nucleic acid amplification test detects fourteen high-risk HPV types (16,18,31,33,35,39,45,51,52,56,58,59,66,68) without differentiation. Performed at: =G Performed By: #### 4 [id number] #### [facility] [address] [place] [address] Dr. Kayy Virgen HPV Genotype Reflex Comment Normal [facility] Comment on above: Result Comment: Crit eria not met, HPV Genotype not performed. Performed at: WB Performed By: #### 4 [id number] #### [facility] [address] [place] [address] Dr. Kayy Virgen Methodology: Comment Normal [facility] Comment on above: Result Comment: This liquid based ThinPrep(R) pap test was screened with the use of an image guided system. Performed at: WB Performed By: #### 4 [id number] #### [facility] [address] [place] [address] Dr. Kayy Virgen Note: Comment Normal [facility] Comment on above: Result Comment: The Pap smear is a screening test designed to aid in the detection of premalignant and malignant conditions of the uterine cervix. It is not a diagnostic procedure and should not be used as the sole means of detecting cervical cancer. Both false-positive and false-negative reports do occur. . Performed at: WB Performed By: #### 4 [id number] #### [facility] [address] [place] [address] Dr. Kayy Virgen Performed by: Comment Normal [facility] Comment on above: Result Comment: Arturo thy Fran, Recapper (ASCP) Performed at: KWCYT Performed By: #### 4 [id number] #### [facility] [address] [address] [address] Kayy Virgen QC reviewed by: Comment Normal [facility] Comment on above: Result Comment: Pepe Cordova, Supervisory Recapper (ASCP) Performed at: WB Performed By: #### 4 [id number] #### [facility] [address] [address] [address] Kayy Virgen Recommendation: Comment Normal [facility] Comment on above: Result Comment: Sugg est follow up as clinically appropriate. Performed at: WB Performed By: #### 4 [id number] #### [facility] [address] [place] [address] Dr. Kayy Virgen Specimen adequacy: Comment Normal [facility] Comment on above: Result Comment: Spec imen processed and examined but unsatisfactory for evaluation of epithelial abnormality because of insufficient cellularity. Performed at: WB Performed By: #### 4 [id number] #### [facility] [address] [address] [address] Kayy Virgen US THYROIDon 01-05-2022 US [...] TR 4 nodule, previously biopsied TI-RADS: The [employer] TI-RADS committee's white paper recommendations for thyroid lesions classified as TR3 (mildly suspicious) are listed below: > 1.5 cm. Follow-up ultrasound in 1, 3, and 5 years. > 2.5 cm. FNA. J. Am Anais Radiol 2017;14:587-595. Electronically authenticated by: ENIO MOHAN Date: 2022-01-05 15:25 Normal [facility] T4, T3U, FTI LABCORPon 11-10 Free Thyroxine Index 2.0 Normal 1.2-4.9 [facility] Comment on above: Performed By: #### T HYLC ####[facility] [address] [address]Dr. Kayy Virgen T3 Uptake 26 % Normal 24-39 [facility] Comment on above: Performed By: #### T HYLC ####[facility] [address] [place], [place] [address]Dr. Shereesamia Virgen T4 [Mass/Vol] 7.5 ug/dL Normal 4.5-12.0 [facility] Comment on above: Performed By: #### T HYLC ####[facility] [address] [place], [place] [address]Dr. Kayy Param CBC AUTO DIFFon 11-09-2021 BASO # 0.1 103/ul Normal 0.0-0.1 [facility] Comment on above: Performed By: #### C BC ####[facility] [address] [place], [place] [address]Dr. Shereesamia Virgen Basophils/100 WBC (Bld) 2.1 % Critically high 0.2-2.0 [facility] Comment on above: Performed By: #### C BC ####[facility] [address] [place], [place] [address]Dr. Kayy Param EO # 0.2 103/ul Normal 0.0-0.7 [facility] Comment on above: Performed By: #### C BC ####[facility] [address] [place], [place] [address]Dr. Kayy Virgen Eosinophils/100 WBC (Bld) 5.1 % Normal 0.9-7.0 [facility] Comment on above: Performed By: #### C BC ####[facility] [address] [place], [place] [address]Dr. Shereesamia Virgen Erythrocyte distribution width (RBC) [Ratio] 14.6 % Normal 11.0-15.0 [facility] Comment on above: Performed By: #### C BC ####[facility] [address] [address]Dr. Kayy Virgen Hematocrit (Bld) [Volume fraction] 38.5 % Normal 36.0-48.0 [facility] Comment on above: Performed By: #### C BC ####[facility] [address] [place], [place] [address]Dr. Kayy Virgen Hemoglobin (Bld) [Mass/Vol] 12.4 g/dL Normal 12.0-16.0 [facility] Comment on above: Performed By: #### C BC ####[facility] [address] [place], [place] [address]DrIrene Virgen IG # 0.01 10e3/ul Normal 0.00-0.03 [facility] Comment on above: Performed By: #### C BC ####[facility] [address] [place], [place] [address]DrIrene Virgen IG % 0.2 % Normal 0.0-0.5 [facility] Comment on above: Performed By: #### C BC ####[facility] [address] [place], [place] [address]DrIrene Virgen LYMPH # 1.5 103/ul Normal 1.2-3.8 [facility] Comment on above: Performed By: #### C BC ####[facility] [address] [place], [place] [address]DrIrene Virgen Lymphocytes/100 WBC (Bld) 33.7 % Normal 20.5-60.0 [facility] Comment on above: Performed By: #### C BC ####[facility] [address] [place], [place] [address]DrIrene Virgen MANUAL DIFF REQ NO Normal [facility] Comment on above: Performed By: #### C BC ####[facility] [address] [place], [place] [address]DrIrene Virgen MCH (RBC) [Entitic mass] 26.7 pg Normal 26.7-34.0 [facility] Comment on above: Performed By: #### C BC ####[facility] [address] [address]Dr. Kayy Virgen MCHC (RBC) [Mass/Vol] 32.2 g/dL Normal 29.9-35.2 [facility] Comment on above: Performed By: #### C BC ####[facility] [address] [place], [place] [address]DrIrene Virgen MCV (RBC) [Entitic vol] 82.8 fL Normal 81.0-99.0 [facility] Comment on above: Performed By: #### C BC ####[facility] [address] [place], [place] [address]DrIrene Virgen MONO # 0.5 103/ul Normal 0.3-0.8 [facility] Comment on above: Performed By: #### C BC ####[facility] [address] [place], [place] [address]Dr. Kayy Virgen Monocytes/100 WBC (Bld) 11.9 % Normal 1.7-12.0 [facility] Comment on above: Performed By: #### C BC ####[facility] [address] [place], [place] [address]DrIrene Virgen NEUT # 2.0 103/ul Normal 1.4-6.5 [facility] Comment on above: Performed By: #### C BC ####[facility] [address] [place], [place] [address]Dr. Kayy Virgen Neutrophils/100 WBC (Bld) 47.0 % Normal 43.0-75.0 [facility] Comment on above: Performed By: #### C BC ####[facility] [address] [place], [place] [address]DrIrene Virgen Platelet mean volume (Bld) [Entitic vol] 9.7 fL Normal 9.5-13.5 [facility] Comment on above: Performed By: #### C BC ####[facility] [address] [place], [place] [address]Dr. Kayy Virgen PLT 269 103/ul Normal 150-450 [facility] Comment on above: Performed By: #### C BC ####[facility] [address] [address]DrIrene Virgen RBC 4.65 106/ul Normal 4.20-5.40 [facility] Comment on above: Performed By: #### C BC ####[facility] [address] [id number] Virgen WBC 4.3 103/ul Normal 4.0-11.0 [facility] Comment on above: Performed By: #### C BC ####[facility] [address] [address]Dr. Kayy Virgen GLYCOHEMOGLOBIN A1Con 2021 ADA RECOMMENDATION SEE BELOW Normal [facility] Comment on above: Result Comment: ADA RECOMMENDED LIMIT 4.0 - 6.0 ADA THERAPEUTIC TARGET < 7.0 ACTION SUGGESTED > 7.0 Performed By: #### A 1C #### [facility] [address] [address] [address] aKyy Virgen Glucose [Mass/Vol] 117 mg/dL Normal [facility] Comment on above: Performed By: #### A 1C #### [facility] [address] [address] [address] Kayy Virgen HbA1c (Bld) [Mass fraction] 5.7 % Normal 4.5-6.2 [facility] Comment on above: Performed By: #### A 1C #### [facility] [address] [address] [address] Kayy Virgen IRONon 11-09-2021 Iron [Mass/Vol] 100.0 ug/dL Normal 50.0-170.0 [facility] Comment on above: Performed By: #### I STEPHANI #### [facility] [address] [address] [address] Kayy Virgen PROF 14(COMP METB)on 022 Albumin [Mass/Vol] 4.0 g/dL Normal 3.4-5.0 [facility] Comment on above: Performed By: #### C MP, TSH #### [facility] [address] [address] [address] Kayy Virgen Albumin/Globulin [Mass ratio] 1.1 {ratio} Normal [facility] Comment on above: Performed By: #### C MP, TSH #### [facility] [address] [address] [address] Kayy Virgen ALP [Catalytic activity/Vol] 109 U/L Normal 46-116 [facility] Comment on above: Performed By: #### C MP, TSH #### [facility] [address] [address] [address] Kayy Virgen ALT [Catalytic activity/Vol] 26 U/L Normal 14-59 [facility] Comment on above: Performed By: #### C MP, TSH #### [facility] [address] [address] [address] Kayy Virgen Anion gap [Moles/Vol] 11.2 mmol/L Normal [facility] Comment on above: Performed By: #### C MP, TSH #### [facility] [address] [address] [address] Kayy Virgen AST [Catalytic activity/Vol] 58 U/L Critically high 15-37 [facility] Comment on above: Performed By: #### C MP, TSH #### [facility] [address] [place] [address] Dr. Kayy Virgen Bilirubin [Mass/Vol] 0.4 mg/dL Normal 0.2-1.0 [facility] Comment on above: Performed By: #### C MP, TSH #### [facility] [address] [address] [address] Kayy Virgen Calcium [Mass/Vol] 9.8 mg/dL Normal 8.5-10.1 [facility] Comment on above: Performed By: #### C MP, TSH #### [facility] [address] [address] [address] Kayy Virgen Chloride [Moles/Vol] 103 mmol/L Normal 98-107 [facility] Comment on above: Performed By: #### C MP, TSH #### [facility] [address] [address] [address] Kayy Virgen CO2 [Moles/Vol] 28.2 mmol/L Normal 21.0-32.0 [facility] Comment on above: Performed By: #### C MP, TSH #### [facility] [address] [address] [address] Kayy Virgen Creatinine [Mass/Vol] 0.98 mg/dL Normal 0.55-1.02 [facility] Comment on above: Performed By: #### C MP, TSH #### [facility] [address] [address] [address] Kayy Virgen EGFR-AF FINNISH >60 Normal >=60 [facility] Comment on above: Performed By: #### C MP, TSH #### [facility] [address] [address] [address] Kayy Virgen EGFR-NON AF FINNISH 57 mL/min/1.73m2 Critically low >=60 [facility] Comment on above: Performed By: #### C MP, TSH #### [facility] [address] [address] [address] Kayy Virgen Globulin (S) [Mass/Vol] 3.8 g/dL Normal [facility] Comment on above: Performed By: #### C MP, TSH #### [facility] [address] [address] [address] Kayy Virgen Glucose [Mass/Vol] 102 mg/dL Normal 74-106 [facility] Comment on above: Performed By: #### C MP, TSH #### [facility] [address] [address] [address] Kayy Virgen Potassium [Moles/Vol] 4.4 mmol/L Normal 3.5-5.1 [facility] Comment on above: Performed By: #### C MP, TSH #### [facility] [address] [address] [address] Kayy Virgen Protein [Mass/Vol] 7.8 g/dL Normal 6.4-8.2 [facility] Comment on above: Performed By: #### C MP, TSH #### [facility] [address] [address] [address] Kayy Virgen Sodium [Moles/Vol] 138 mmol/L Normal 136-145 [facility] Comment on above: Performed By: #### C MP, TSH #### [facility] [address] [address] [address] Kayy Virgen Urea nitrogen [Mass/Vol] 22.0 mg/dL Critically high 7.0-18.0 [facility] Comment on above: Performed By: #### C MP, TSH #### [facility] [address] [address] [address] Kayy Virgen Urea nitrogen/Creatinine [Mass ratio] 22.4 mg/mg Normal [facility] Comment on above: Performed By: #### C MP, TSH #### [facility] [address] [address] [address] Kayy Virgen TSHon 11-09-2021 TSH 1.200 uIU/mL Normal 0.358-3.740 [facility] Comment on above: Performed By: #### C MP, TSH #### [facility] [address] [address] [address] Kayy Virgen AMYLASEon 08-31-2021 Amylase [Catalytic activity/Vol] 34 U/L Normal 25-115 [facility] Comment on above: Performed By: #### A MY, CMP, LIPA ####[facility] [address] [id number]. Kayy Virgen CBC AUTO DIFFon 08-31-2021 BASO # 0.1 103/ul Normal 0.0-0.1 [facility] Comment on above: Performed By: #### C BC ####[facility] [address] [id number]. Kayy Virgen Basophils/100 WBC (Bld) 0.8 % Normal 0.2-2.0 [facility] Comment on above: Performed By: #### C BC ####[facility] [address] [address]Dr. Kayy Virgen EO # 0.0 103/ul Normal 0.0-0.7 [facility] Comment on above: Performed By: #### C BC ####[facility] [address] [address]Dr. Kayy Virgen Eosinophils/100 WBC (Bld) 0.6 % Critically low 0.9-7.0 [facility] Comment on above: Performed By: #### C BC ####[facility] [address] [place], [place] [address]Dr. Kayy Virgen Erythrocyte distribution width (RBC) [Ratio] 13.9 % Normal 11.0-15.0 [facility] Comment on above: Performed By: #### C BC ####[facility] [address] [place], [place] [address]Dr. Kayy Virgen Hematocrit (Bld) [Volume fraction] 37.7 % Normal 36.0-48.0 [facility] Comment on above: Performed By: #### C BC ####[facility] [address] [place], [place] [address]Dr. Kayy Virgen Hemoglobin (Bld) [Mass/Vol] 12.3 g/dL Normal 12.0-16.0 [facility] Comment on above: Performed By: #### C BC ####[facility] [address] [place], [place] [address]Dr. Kayy Virgen IG # 0.02 10e3/ul Normal 0.00-0.03 [facility] Comment on above: Performed By: #### C BC ####[facility] [address] [place], [place] [address]Dr. Kayy Virgen IG % 0.3 % Normal 0.0-0.5 [facility] Comment on above: Performed By: #### C BC ####[facility] [address] [place], [place] [address]Dr. Kayy Virgen LYMPH # 1.4 103/ul Normal 1.2-3.8 [facility] Comment on above: Performed By: #### C BC ####[facility] [address] [place], [place] [address]Dr. Shereesamia Virgen Lymphocytes/100 WBC (Bld) 20.8 % Normal 20.5-60.0 [facility] Comment on above: Performed By: #### C BC ####[facility] [address] [address]Dr. Kayy Virgen MANUAL DIFF REQ NO Normal [facility] Comment on above: Performed By: #### C BC ####[facility] [address] [id number]. Kayy Virgen MCH (RBC) [Entitic mass] 26.9 pg Normal 26.7-34.0 [facility] Comment on above: Performed By: #### C BC ####[facility] [address] [address]Dr. Kayy Virgen MCHC (RBC) [Mass/Vol] 32.6 g/dL Normal 29.9-35.2 [facility] Comment on above: Performed By: #### C BC ####[facility] [address] [place], [place] [address]Dr. Kayy Virgen MCV (RBC) [Entitic vol] 82.5 fL Normal 81.0-99.0 [facility] Comment on above: Performed By: #### C BC ####[facility] [address] [place], [place] [address]Dr. Kayy Virgen MONO # 0.6 103/ul Normal 0.3-0.8 [facility] Comment on above: Performed By: #### C BC ####[facility] [address] [place], [place] [address]Dr. Kayy Virgen Monocytes/100 WBC (Bld) 8.8 % Normal 1.7-12.0 [facility] Comment on above: Performed By: #### C BC ####[facility] [address] [place], [place] [address]DrIrene Virgen NEUT # 4.5 103/ul Normal 1.4-6.5 [facility] Comment on above: Performed By: #### C BC ####[facility] [address] [place], [place] [address]Dr. Kayy Virgen Neutrophils/100 WBC (Bld) 68.7 % Normal 43.0-75.0 [facility] Comment on above: Performed By: #### C BC ####[facility] [address] [id number]. Kayy Virgen Platelet mean volume (Bld) [Entitic vol] 10.2 fL Normal 9.5-13.5 [facility] Comment on above: Performed By: #### C BC ####[facility] [address] [id number]. Kayy Virgen PLT 265 103/ul Normal 150-450 [facility] Comment on above: Performed By: #### C BC ####[facility] [address] [place], [place] [address]Mx. Kayy Virgen RBC 4.57 106/ul Normal 4.20-5.40 [facility] Comment on above: Performed By: #### C BC ####[facility] [address] [id number]. Kayy Virgen WBC 6.5 103/ul Normal 4.0-11.0 [facility] Comment on above: Performed By: #### C BC ####[facility] [address] [place], [place] [address]Y[address]. [address] CT ABD/PELVIS WO CONon 08-31 [...] DANNA HANNA Date: 2021-08-31 12:25 Normal [facility] ER URINE PROFILEon 2 Bilirubin Ql (U) Negative Normal NEGATIVE [facility] Comment on above: Performed By: #### E RUR #### [facility] [address] [place] [address] Dr. Kayy Virgen Clarity (U) CLEAR Normal CLEAR [facility] Comment on above: Performed By: #### E RUR #### [facility] [address] [place] [address] Dr. Kayy Virgen Color (U) LT. YELLOW Normal YELLOW [facility] Comment on above: Performed By: #### E RUR #### [facility] [address] [place] [address] Dr. Kayy Virgen ERUKATHLEEND A micrscopic examina tion will be performed if indicated. Normal [facility] Comment on above: Performed By: #### E RUR #### [facility] [address] [address] [address] Kayy Virgen Glucose Ql (U) Negative Normal NEGATIVE [facility] Comment on above: Performed By: #### E RUR #### [facility] [address] [address] [address] Kayy Virgen Hemoglobin Ql (U) Negative Normal NEGATIVE [facility] Comment on above: Performed By: #### E RUR #### [facility] [address] [place] [address] Dr. Kayy Virgen Ketones Ql (U) Negative Normal NEGATIVE [facility] Comment on above: Performed By: #### E RUR #### [facility] [address] [place] [address] Dr. Kayy Virgen LEUKOCYTES Negative Normal NEGATIVE [facility] Comment on above: Performed By: #### E RUR #### [facility] [address] [place] [address] Dr. Kayy Virgen Nitrite Ql (U) Negative Normal NEGATIVE [facility] Comment on above: Performed By: #### E RUR #### [facility] [address] [place] [address] Dr. Kayy Virgen pH (U) 6.0 [pH] Normal 5-9 [facility] Comment on above: Performed By: #### E RUR #### [facility] [address] [place] [address] Dr. Kayy Virgen SPEC GRAVITY <=1.005 Abnormal 1.005-<=1.025 [facility] Comment on above: Performed By: #### E RUR #### [facility] [address] [place] [address] Dr. Kayy Virgen UA PROTEIN Negative Normal NEGATIVE/ TRACE [facility] Comment on above: Performed By: #### E RUR #### [facility] [address] [place] [address] Dr. Kayy Virgen UR MICRO IND NOT INDICATED Normal [facility] Comment on above: Performed By: #### E RUR #### [facility] [address] [place] [address] Dr. Kayy Virgen Urobilinogen Qn (U) 0.2 {Cuauhtemoc'U}/dL Normal 0.2 - 1. 0 [facility] Comment on above: Performed By: #### E RUR #### [facility] [address] [place] [address] Dr. Kayy Virgen LIPASEon 08-31-2021 Lipase [Catalytic activity/Vol] 73.0 U/L Normal 73.0-393.0 [facility] Comment on above: Performed By: #### A MY, CMP, LIPA #### [facility] [address] [place] [address] Dr. Kayy Virgen PROF 14(COMP METB)on 022 Albumin [Mass/Vol] 3.6 g/dL Normal 3.4-5.0 [facility] Comment on above: Performed By: #### A MY, CMP, LIPA ####[facility] [address] [address]Dr. Kayy Virgen Albumin/Globulin [Mass ratio] 0.9 {ratio} Normal [facility] Comment on above: Performed By: #### A MY, CMP, LIPA ####[facility] [address] [place], [place] [address]Dr. Kayy Virgen ALP [Catalytic activity/Vol] 98 U/L Normal 46-116 [facility] Comment on above: Performed By: #### A MY, CMP, LIPA ####[facility] [address] [place], [place] [address]Dr. Kayy Virgen ALT [Catalytic activity/Vol] 22 U/L Normal 14-59 [facility] Comment on above: Performed By: #### A MY, CMP, LIPA ####[facility] [address] [place], [place] [address]Dr. Kayy Virgen Anion gap [Moles/Vol] 12.6 mmol/L Normal [facility] Comment on above: Performed By: #### A MY, CMP, LIPA ####[facility] [address] [place], [place] [address]Dr. Kayy Virgen AST [Catalytic activity/Vol] 44 U/L Critically high 15-37 [facility] Comment on above: Performed By: #### A MY, CMP, LIPA ####[facility] [address] [place], [place] [address]Dr. Kayy Virgen Bilirubin [Mass/Vol] 0.5 mg/dL Normal 0.2-1.0 [facility] Comment on above: Performed By: #### A MY, CMP, LIPA ####[facility] [address] [place], [place] [address]Dr. Kayy Virgen Calcium [Mass/Vol] 9.2 mg/dL Normal 8.5-10.1 [facility] Comment on above: Performed By: #### A MY, CMP, LIPA ####[facility] [address] [address]Dr. Kayy Virgen Chloride [Moles/Vol] 104 mmol/L Normal 98-107 [facility] Comment on above: Performed By: #### A MY, CMP, LIPA ####[facility] [address] [address]Dr. Kayy Virgen CO2 [Moles/Vol] 24.3 mmol/L Normal 21.0-32.0 [facility] Comment on above: Performed By: #### A MY, CMP, LIPA ####[facility] [address] [place], [place] [address]Dr. Kayy Virgen Creatinine [Mass/Vol] 0.87 mg/dL Normal 0.55-1.02 [facility] Comment on above: Performed By: #### A MY, CMP, LIPA ####[facility] [address] [place], [place] [address]Dr. Kayy Virgen EGFR-AF FINNISH >60 Normal >=60 [facility] Comment on above: Performed By: #### A MY, CMP, LIPA ####[facility] [address] [place], [place] [address]Dr. Kayy Virgen EGFR-NON AF FINNISH >60 Normal >=60 [facility] Comment on above: Performed By: #### A MY, CMP, LIPA ####[facility] [address] [place], [place] [address]Dr. Kayy Virgen Globulin (S) [Mass/Vol] 4.0 g/dL Normal [facility] Comment on above: Performed By: #### A MY, CMP, LIPA ####[facility] [address] [place], [place] [address]Dr. Kayy Virgen Glucose [Mass/Vol] 96 mg/dL Normal 74-106 [facility] Comment on above: Performed By: #### A MY, CMP, LIPA ####[facility] [address] [place], [place] [address]Dr. Kayy Vrigen Potassium [Moles/Vol] 3.9 mmol/L Normal 3.5-5.1 [facility] Comment on above: Performed By: #### A MY, CMP, LIPA ####[facility] [address] [phone]. Kayy Virgen Protein [Mass/Vol] 7.6 g/dL Normal 6.4-8.2 [facility] Comment on above: Performed By: #### A MY, CMP, LIPA ####[facility] [address] [phone]. Kayy Virgen Sodium [Moles/Vol] 137 mmol/L Normal 136-145 [facility] Comment on above: Performed By: #### A MY, CMP, LIPA ####[facility] [address] [phone]. Kayy Virgen Urea nitrogen [Mass/Vol] 11.0 mg/dL Normal 7.0-18.0 [facility] Comment on above: Performed By: #### A MY, CMP, LIPA ####[facility] [address] [phone]. Kayy Virgen Urea nitrogen/Creatinine [Mass ratio] 12.6 mg/mg Normal [facility] Comment on above: Performed By: #### A MY, CMP, LIPA ####[facility] [address] [phone]. Kayy Virgen US THYROID FN ASP BXon 07-05 US THYROID FN ASP BX Begin Addendum #1 COLLECTED DATE/TIME: 06/29/2021 13:56 EDT Final Diagnosis Report for [facility] [place] (A/B) RIGHT THYROID NODULE; FINE NEEDLE [...] (FNA). 2. Pathology results are pending. Normal [facility] US THYROIDon 06-21-2021 US THYROID EXAMINATION: [...] nodule. Fine needle aspiration recommended TI-RADS: The [employer] TI-RADS committee's white paper recommendations for thyroid lesions classified as TR4 (moderately suspicious) are listed below: > 1.0 cm. Follow-up ultrasound in 1, 2, 3, and 5 years. > 1.5 cm. FNA. J. Am Anais Radiol 2017;14:[id number]. Electronically authenticated by: ENIO MOHAN Date: 2021-06-21 12:10 Normal [facility] US CAROTID ART BILon 022 US CAROTID [...] by: DANNA HANNA Date: 2021-06-08 13:16 Normal [facility] Blood Occult Stool Screen #1 on 10-13-2019 Date, Stool #1 [id number] [facility] [place], [place] Date, Stool [...] 2019 Occult Blood 1 Negative Normal NEG [facility] Comment on above: Performed By: #### O BN #### [facility] [address] [place] [address] Manager Retail [employer]: Elisabeth Worthy MD Specimen 1 Date Normal [facility] Comment on above: Performed By: #### O BN #### [facility] [address] [place] [address] Manager Retail Store: Elisabeth Worthy MD Specimen 1 Time 1199 Normal [facility] Comment on above: Performed By: #### O BN #### [facility] [address] [place] [address] Manager Retail Store: Elisabeth Worthy MD Specimen 2 Date NOT REPORTED Normal [facility] Comment on above: Performed By: #### O BN #### [facility] [address] [place] [address] Manager Retail Store: Elisabeth Worthy MD Specimen 2 Time NOT REPORTED Normal [facility] Comment on above: Performed By: #### O BN #### [facility] [address] [place] [address] Manager Retail Store: Elisabeth Worthy MD Specimen 3 Date NOT REPORTED Normal [facility] Comment on above: Performed By: #### O BN #### [facility] [address] [place] [address] Manager Retail Store: Elisabeth Worthy MD Specimen 3 Time NOT REPORTED Normal [facility] Comment on above: Performed By: #### O BN #### [facility] [address] [place] [address] Manager Retail Store: Elisabeth Worthy MD Occult Blood 2 NOT REPORTED Normal NEG [facility] Comment on above: Performed By: #### O BN #### [facility] [address] [place] [address] Manager Retail Store: Elisabeth Worthy MD Occult Blood 3 NOT REPORTED Normal NEG [facility] Comment on above: Performed By: #### O BN #### [facility] [address] [place] [address] Manager Retail Store: Elisabeth Worthy MD Free Thyroxine Indexon 10-07 FTI Ratio 2.0 ug/dL Normal 1.4-3.1 [facility] Comment on above: Performed By: #### F TI, FE #### [facility] [address] [place] [address] Manager Retail Store: Otoniel Ash MD #### TSH, LIPR, CP, GLYHGB, CDP #### [facility] [address] [place] [address] Manager Retail Store: Elisabeth Worthy MD T4 [Mass/Vol] 29.74 % Normal 22.5-37.0 [facility] Comment on above: Performed By: #### F TI, FE #### [id number] [place] [address] Manager Retail Store: Otoniel Ash MD #### TSH, LIPR, CP, GLYHGB, CDP #### [facility] [address] [place] [address] [address] [place], [place] [phone] Manager Retail Store: Elisabeth Worthy MD T4 [Mass/Vol] 6.6 ug/dL Normal 4.5-10.9 [facility] Comment on above: Performed By: #### F TI, FE #### [address] [phone] Manager Retail Store: Otoniel Ash MD #### TSH, LIPR, CP, GLYHGB, CDP #### [facility] [address] [place] [address] [place] [address] Manager Retail Store: Elisabeth Worthy MD Ironon 10-08-2019 Iron [Mass/Vol] 73 ug/dL Normal 37-145 [facility] Comment on above: Performed By: #### F TI, FE #### [address] [phone] Manager Retail Store: Otoniel Ash MD #### TSH, LIPR, CP, GLYHGB, CDP #### [address] [place] [address] Manager Retail Store: Elisabeth Worthy MD T3 uptake and FTIon 10-08-19 Free Thyroxine Index 2 ug/dL 1.4 - 3.1 ug/dL [place] T4 [Mass/Vol] 29.74 % 22.5 - 37 % [place], [place] T4, Total 6.6 ug/dL 4.5 - 10.9 ug/dL [place] CBC Auto Differentialon 09-16 Basophils (Bld) [#/Vol] 0.07 10*3/uL [place] Basophils/100 WBC (Bld) 1 % 0 - 2 % [place] Differential Type NOT REPORTED [place] Eosinophils (Bld) [#/Vol] 0.06 10*3/uL [place] Eosinophils/100 WBC (Bld) 1 % 1 - 4 % [place] Erythrocyte distribution width (RBC) [Ratio] 14.5 % High 11.8 - 14.4 % [place] Hematocrit (Bld) [Volume fraction] 42.4 % 36.3 - 47.1 % [place] Hemoglobin (Bld) [Mass/Vol] 13.2 g/dL 11.9 - 15.1 g/dL [place] Immature granulocytes (Bld) [#/Vol] 10*3/uL [place] Immature granulocytes (Bld) [#/Vol] 0 % 0 [place] Interpretation and review of laboratory results Abnormal [place] Lymphocytes (Bld) [#/Vol] 1.87 10*3/uL [place] Lymphocytes/100 WBC (Bld) 33 % 24 - 43 % [place] MCH (RBC) [Entitic mass] 26.1 pg 25.2 - 33.5 pg [place] MCHC (RBC) [Mass/Vol] 31.1 g/dL 28.4 - 34.8 g/dL [place] MCV (RBC) [Entitic vol] 84.0 fL 82.6 - 102.9 fL [place] Monocytes (Bld) [#/Vol] 0.45 10*3/uL [place] Monocytes/100 WBC (Bld) 8 % 3 - 12 % [place] Platelet mean volume (Bld) [Entitic vol] 10.1 fL 8.1 - 13.5 fL [place] Platelets (Bld) [#/Vol] 270 10*3/uL [place] Platelets (Bld) [#/Vol] NOT REPORTED [place] RBC (Bld) [#/Vol] 5.05 10*6/uL 3.95 - 5.1 1 m/uL [place] RBC morphology finding Nom (Bld) NOT REPORTED [place] Segmented neutrophils/100 WBC (Bld) 57 % 36 - 65 % [place] Segs Absolute 3.17 [place] WBC (Bld) [#/Vol] 5.6 10*3/uL [place] WBC (Bld) [#/Vol] 0.0 10*3/uL 0.0 per 10 0 WBC [place] WBC Morphology NOT REPORTED [place], [place] CBC with Diffon 10-07-2019 Abs. Basophil 0.07 k/uL Normal 0.00-0.20 [facility] Comment on above: Performed By: #### F HUMBERTO, FE #### [address] [id number] Manager Retail Store: Otoniel Ash MD #### TSH, LIPR, CP, GLYHGB, CDP #### [address] [place] [phone] Manager Retail Store: Elisabeth Worthy MD Abs.Imm.Granulocyte <0.03 Normal 0.00-0.30 [facility] Comment on above: Performed By: #### Jeramie PAUL, FE #### [phone] Manager Retail Store: Otoniel Ash MD #### TSH, LIPR, CP, GLYHGB, CDP #### [address] [place] [phone] Manager Retail Store: Elisabeth Worthy MD Abs.Neutrophil (Seg) 3.17 k/uL Normal 1.50-8.10 [facility] Comment on above: Performed By: #### F HUMBERTO, FE #### [phone] Manager Retail Store: Otoniel Ash MD #### TSH, LIPR, CP, GLYHGB, CDP #### [address] [place] [phone] Manager Retail Store: Elisabeth Worthy MD Basophils/100 WBC (Bld) 1 % Normal 0-2 [facility] Comment on above: Performed By: #### F TI, FE #### [address] [phone] Manager Retail Store: Otoniel Ash MD #### TSH, LIPR, CP, GLYHGB, CDP #### [address] [place] [phone] Manager Retail Store: Elisabeth Worthy MD Eosinophils (Bld) [#/Vol] 0.06 10*3/uL Normal 0.00-0.44 [facility] Comment on above: Performed By: #### F TI, FE #### [phone] Manager Retail Store: Otoniel Ash MD #### TSH, LIPR, CP, GLYHGB, CDP #### [address] [place] [phone] Manager Retail Store: Elisabeth Worthy MD Eosinophils/100 WBC (Bld) 1 % Normal 1-4 [facility] Comment on above: Performed By: #### F TI, FE #### [address] [phone] Manager Retail Store: Otoniel Ash MD #### TSH, LIPR, CP, GLYHGB, CDP #### [address] [place] [phone] Manager Retail Store: Elisabeth Worthy MD Erythrocyte distribution width (RBC) [Ratio] 14.5 % High 11.8-14.4 [facility] Comment on above: Performed By: #### F TI, FE #### [phone] Manager Retail Store: Otoniel Ash MD #### TSH, LIPR, CP, GLYHGB, CDP #### [address] [place] [phone] Manager Retail Store: Elisabeth Worthy MD Hematocrit (Bld) [Volume fraction] 42.4 % Normal 36.3-47.1 [facility] Comment on above: Performed By: #### F TI, FE #### [address] [phone] Manager Retail Store: Otoniel Ash MD #### TSH, LIPR, CP, GLYHGB, CDP #### [address] [place] [phone] Manager Retail Store: Elisabeth Worthy MD Hemoglobin (Bld) [Mass/Vol] 13.2 g/dL Normal 11.9-15.1 [facility] Comment on above: Performed By: #### F TI, FE #### [address] [phone] Manager Retail Store: Otoniel Ash MD #### TSH, LIPR, CP, GLYHGB, CDP #### [address] [place] [phone] Manager Retail Store: Elisabeth Worthy MD Immature granulocytes (Bld) [#/Vol] 0 % Normal 0 [facility] Comment on above: Performed By: #### F TI, FE #### [address] [phone] Manager Retail Store: Otoniel Ash MD #### TSH, LIPR, CP, GLYHGB, CDP #### [address] [place] [phone] Manager Retail Store: Elisabeth Worthy MD Lymphocytes (Bld) [#/Vol] 1.87 10*3/uL Normal 1.10-3.70 [facility] Comment on above: Performed By: #### F TI, FE #### [address] [phone] Manager Retail Store: Otoniel Ash MD #### TSH, LIPR, CP, GLYHGB, CDP #### [facility] [address] [place] [address] Manager Retail Store: Elisabeth Worthy MD Lymphocytes/100 WBC (Bld) 33 % Normal 24-43 [facility] Comment on above: Performed By: #### F TI, FE #### [address] [phone] Manager Retail Store: Otoniel Ash MD #### TSH, LIPR, CP, GLYHGB, CDP #### [facility] [address] [place] [address] Manager Retail Store: Elisabeth Worthy MD MCH (RBC) [Entitic mass] 26.1 pg Normal 25.2-33.5 [facility] Comment on above: Performed By: #### F TI, FE #### [place] [address] Manager Retail Store: Otoniel Ash MD #### TSH, LIPR, CP, GLYHGB, CDP #### [address] [place] [id number] Manager Retail Store: Elisabeth Worthy MD MCHC (RBC) [Mass/Vol] 31.1 g/dL Normal 28.4-34.8 [facility] Comment on above: Performed By: #### F TI, FE #### [address] [phone] Manager Retail Store: Otoniel Ash MD #### TSH, LIPR, CP, GLYHGB, CDP #### [address] [place] [phone] Manager Retail Store: Elisabeth Worthy MD MCV (RBC) [Entitic vol] 84.0 fL Normal 82.6-102.9 [facility] Comment on above: Performed By: #### F TI, FE #### [address] [address] Manager Retail Store: Otoniel Ash MD #### TSH, LIPR, CP, GLYHGB, CDP #### [address] [place] [phone] Manager Retail Store: Elisabeth Worthy MD Monocytes (Bld) [#/Vol] 0.45 10*3/uL Normal 0.10-1.20 [facility] Comment on above: Performed By: #### F TI, FE #### [address] [address] Manager Retail Store: Otoniel Ash MD #### TSH, LIPR, CP, GLYHGB, CDP #### [address] [place] [phone] Manager Retail Store: Elisabeth Worthy MD Monocytes/100 WBC (Bld) 8 % Normal 3-12 [facility] Comment on above: Performed By: #### F TI, FE #### [address] [address] Manager Retail Store: Otoniel Ash MD #### TSH, LIPR, CP, GLYHGB, CDP #### [address] [place] [phone] Manager Retail Store: Elisabeth Worthy MD Neutrophil (Seg) 57 % Normal 36-65 [facility] Comment on above: Performed By: #### F TI, FE #### [address] [address] Manager Retail Store: Otoniel Ash MD #### TSH, LIPR, CP, GLYHGB, CDP #### [address] [place] [phone] Manager Retail Store: Elisabeth Worthy MD NRBC Automated 0.0 per 100 WBC Normal 0.0 [facility] Comment on above: Performed By: #### F TI, FE #### [address] [address] Manager Retail Store: Otoniel Ash MD #### TSH, LIPR, CP, GLYHGB, CDP #### [address] [place], [place] [phone] Manager Retail Store: Elisabeth Worthy MD Platelet mean volume (Bld) [Entitic vol] 10.1 fL Normal 8.1-13.5 [facility] Comment on above: Performed By: #### F TI, FE #### [address] [phone] Manager Retail Store: Otoniel Ash MD #### TSH, LIPR, CP, GLYHGB, CDP #### [address] [place] [phone] Manager Retail Store: Elisabeth Worthy MD Platelets (Bld) [#/Vol] 270 10*3/uL Normal 138-453 [facility] Comment on above: Performed By: #### F TI, FE #### [address] [address] Manager Retail Store: Otoniel Ash MD #### TSH, LIPR, CP, GLYHGB, CDP #### [address] [place], [place] [phone] Manager Retail Store: Elisabeth Worthy MD RBC (Bld) [#/Vol] 5.05 10*6/uL Normal 3.95-5.11 [facility] Comment on above: Performed By: #### F TI, FE #### [address] [phone] Manager Retail Store: Otoniel Ash MD #### TSH, LIPR, CP, GLYHGB, CDP #### [address] [place], [place] [phone] Manager Retail Store: Elisabeth Worthy MD WBC (Bld) [#/Vol] 5.6 10*3/uL Normal 3.5-11.3 [facility] Comment on above: Performed By: #### F TI, FE #### [address] [address] Manager Retail Store: Otoniel Ash MD #### TSH, LIPR, CP, GLYHGB, CDP #### [facility] [address] [place] [address] [address]. [place], [place] [phone] Manager Retail Store: Elisabeth Worthy MD Auto Diff Performed NOT REPORTED Normal [facility] Comment on above: Performed By: #### F TI, FE #### [address] [address] Manager Retail Store: Otoniel Ash MD #### TSH, LIPR, CP, GLYHGB, CDP #### [facility] [address] [place] [address] [address]. [place] [phone] Manager Retail Store: Elisabeth Worthy MD Platelets (Bld) [#/Vol] NOT REPORTED Normal [facility] Comment on above: Performed By: #### F TI, FE #### [address] [address] Manager Retail Store: Otoniel Ash MD #### TSH, LIPR, CP, GLYHGB, CDP #### [facility] [address] [place] [address] [address]. [place] [phone] Manager Retail Store: Elisabeth Worthy MD RBC morphology finding Nom (Bld) NOT REPORTED Normal [facility] Comment on above: Performed By: #### F TI, FE #### [address] [address] Manager Retail Store: Otoniel Ash MD #### TSH, LIPR, CP, GLYHGB, CDP #### [facility] [address] [place] [address] [address]. [place], [place] [phone] Manager Retail Store: Elisabeth Worthy MD WBC Morphology NOT REPORTED Normal [facility] Comment on above: Performed By: #### F TI, FE #### [address] [address] Manager Retail Store: Otoniel Ash MD #### TSH, LIPR, CP, GLYHGB, CDP #### [address] [place] [address] Manager Retail Store: Elisabeth Worthy MD Comp Metabolic Profon 2019 (cont.) [facility] Comment on above: Result Comment: Aver age GFR for 60-69 years old: 85 mL/min/1.73sq m Chronic Kidney Disease: <60 mL/min/1.73sq m Kidney failure: <15 mL/min/1.73sq m eGFR calculated using average adult body mass. Additional eGFR calculator available at: http://www.[employer]/multiple_crcl_2012.htm Performed By: #### F TI, FE #### [address] [address] Manager Retail Store: Otoniel Ash MD #### TSH, LIPR, CP, GLYHGB, CDP #### [address] [place] [address] Manager Retail Store: Elisabeth Worthy MD Albumin [Mass/Vol] 4.5 g/dL Normal 3.5-5.2 [facility] Comment on above: Performed By: #### F TI, FE #### [address] [address] Manager Retail Store: Otoniel Ash MD #### TSH, LIPR, CP, GLYHGB, CDP #### [address] [place] [address] Manager Retail Store: Elisabeth Worthy MD Albumin/Globulin [Mass ratio] 1.4 {ratio} Normal 1.0-2.5 [facility] Comment on above: Performed By: #### F TI, FE #### [address] [address] Manager Retail Store: Otoniel Ash MD #### TSH, LIPR, CP, GLYHGB, CDP #### [facility] [address] [place] [address] Manager Retail Store: Elisabeth Worthy MD Alkaline Phos 94 U/L Normal 35-104 [facility] Comment on above: Performed By: #### F TI, FE #### [address] [phone] Manager Retail Store: Otoniel Ash MD #### TSH, LIPR, CP, GLYHGB, CDP #### [facility] [address] [place] [phone] Manager Retail Store: Elisabeth Worthy MD ALT [Catalytic activity/Vol] 10 U/L Normal 5-33 [facility] Comment on above: Performed By: #### F TI, FE #### [address] [phone] Manager Retail Store: Otoniel Ash MD #### TSH, LIPR, CP, GLYHGB, CDP #### [facility] [address] [place] [phone] Manager Retail Store: Elisabeth Worthy MD Anion gap [Moles/Vol] 12 mmol/L Normal 9-17 [facility] Comment on above: Performed By: #### F TI, FE #### [address] [phone] Manager Retail Store: Otoniel Ash MD #### TSH, LIPR, CP, GLYHGB, CDP #### [facility] [address] [place] [address] Manager Retail Store: Elisabeth Worthy MD AST [Catalytic activity/Vol] 40 U/L High <32 [facility] Comment on above: Performed By: #### F TI, FE #### [address] [phone] Manager Retail Store: Otoniel Ash MD #### TSH, LIPR, CP, GLYHGB, CDP #### [facility] [address] [place] [address] [place] [address] Manager Retail Store: Elisabeth Worthy MD Bilirubin Ql (U) 0.27 mg/dL Low 0.3-1.2 [facility] Comment on above: Performed By: #### F TI, FE #### [address] [phone] Manager Retail Store: Otoniel Ash MD #### TSH, LIPR, CP, GLYHGB, CDP #### [facility] [address] [place] [address] [address]. [place] [phone] Manager Retail Store: Elisabeth Worthy MD BUN/CRE Ratio 22 High 9-20 [facility] Comment on above: Performed By: #### F TI, FE #### [address] [phone] Manager Retail Store: Otoniel Ash MD #### TSH, LIPR, CP, GLYHGB, CDP #### [facility] [address] [place] [address] Dr. [place] [phone] Manager Retail Store: Elisabeth Worthy MD Calcium [Mass/Vol] 10.0 mg/dL Normal 8.6-10.4 [facility] Comment on above: Performed By: #### F TI, FE #### [address] [phone] Manager Retail Store: Otoniel Ash MD #### TSH, LIPR, CP, GLYHGB, CDP #### [facility] [address] [place] [address] [place] [address] Manager Retail Store: Elisabeth Worthy MD Chloride [Moles/Vol] 105 mmol/L Normal 98-107 [facility] Comment on above: Performed By: #### F TI, FE #### [address] [phone] Manager Retail Store: Otoniel Ash MD #### TSH, LIPR, CP, GLYHGB, CDP #### [facility] [address] [place] [address] [place] [address] Manager Retail Store: Elisabeth Worthy MD CO2 [Moles/Vol] 21 mmol/L Normal 20-31 [facility] Comment on above: Performed By: #### F TI, FE #### [address] [phone] Manager Retail Store: Otoniel Ash MD #### TSH, LIPR, CP, GLYHGB, CDP #### [facility] [address] [place] [address] [place] [address] Manager Retail Store: Elisabeth Worthy MD Creatinine [Mass/Vol] 0.79 mg/dL Normal 0.50-0.90 [facility] Comment on above: Performed By: #### F TI, FE #### [address] [address] Manager Retail Store: Otoniel Ash MD #### TSH, LIPR, CP, GLYHGB, CDP #### [address] [place] [address] Manager Retail Store: Elisabeth Worthy MD GFR, Amer >60 Normal >60 [facility] Comment on above: Performed By: #### F TI, FE #### [address] [address] Manager Retail Store: Otoniel Ash MD #### TSH, LIPR, CP, GLYHGB, CDP #### [facility] [address] [place] [address] [place] [address] Manager Retail Store: Elisabeth Worthy MD GFR,non Amer >60 Normal >60 [facility] Comment on above: Performed By: #### F TI, FE #### [address] [address] Manager Retail Store: Otoniel Ash MD #### TSH, LIPR, CP, GLYHGB, CDP #### [address] [place] [address] Manager Retail Store: Elisabeth Worthy MD Glucose [Mass/Vol] 99 mg/dL Normal 70-99 [facility] Comment on above: Performed By: #### F TI, FE #### [address] [phone] Manager Retail Store: Otoniel Ash MD #### TSH, LIPR, CP, GLYHGB, CDP #### [address] [place] [address] Manager Retail Store: Elisabeth Worthy MD Potassium [Moles/Vol] 4.1 mmol/L Normal 3.7-5.3 [facility] Comment on above: Performed By: #### F TI, FE #### [address] [phone] Manager Retail Store: Otoniel Ash MD #### TSH, LIPR, CP, GLYHGB, CDP #### [address] [place] [address] Manager Retail Store: Elisabeth Worthy MD Protein [Mass/Vol] 7.7 g/dL Normal 6.4-8.3 [facility] Comment on above: Performed By: #### F TI, FE #### [address] [address] Manager Retail Store: Otoniel Ash MD #### TSH, LIPR, CP, GLYHGB, CDP #### [address] [place] [address] Manager Retail Store: Elisabeth Worthy MD Sodium [Moles/Vol] 138 mmol/L Normal 135-144 [facility] Comment on above: Performed By: #### F TI, FE #### [address] [phone] Manager Retail Store: Otoniel Ash MD #### TSH, LIPR, CP, GLYHGB, CDP #### [facility] [address] [place] [address] [place] [address] Manager Retail Store: Elisabeth Worthy MD Staging: Normal [facility] Comment on above: Result Comment: Stag e 1: Some kidney damage normal GFR Stage 2: Mild kidney damage GFR 60-89 Stage 3: Moderate kidney damage GFR 30-59 Stage 4: Severe kidney damage GFR 15-29 Stage 5: Severe kidney damage GFR <15 ESRD - chronic treatment by dialysis or transplant Performed By: #### F TI, FE #### [address] [phone] Manager Retail Store: Otoniel Ash MD #### TSH, LIPR, CP, GLYHGB, CDP #### [address] [place] [address] Manager Retail Store: Elisabeth Worthy MD Urea nitrogen [Mass/Vol] 17 mg/dL Normal 8-23 [facility] Comment on above: Performed By: #### F TI, FE #### [address] [phone] Manager Retail Store: Otoniel Ash MD #### TSH, LIPR, CP, GLYHGB, CDP #### [facility] [address] [place] [address] [place] [address] Manager Retail Store: Elisabeth Worthy MD [facility] Metabolic [facility] 10-07-2019 Albumin [Mass/Vol] 4.5 g/dL 3.5 - 5.2 g/dL [place] Albumin/Globulin [Mass ratio] 1.4 {ratio} [place] ALP [Catalytic activity/Vol] 94 U/L 35 - 104 U/L [place] ALT [Catalytic activity/Vol] 10 U/L 5 - 33 U/L [place] Anion gap [Moles/Vol] 12 mmol/L 9 - 17 mmol/L [place] AST [Catalytic activity/Vol] 40 U/L High <32 [place] Bilirubin Ql (U) 0.27 mg/dL Low 0.3 - 1.2 mg/dL [place] Bun/Cre Ratio 22 [place] Calcium [Mass/Vol] 10.0 mg/dL 8.6 - 10. 4 mg/dL [place] Chloride [Moles/Vol] 105 mmol/L 98 - 107 mmol/L [place] CO2 [Moles/Vol] 21 mmol/L 20 - 31 mmol/L [place] Creatinine [Mass/Vol] 0.79 mg/dL 0.5 - 0.9 mg/dL [place] GFR >60 >60 mL/min [place] GFR Non- >60 >60 mL/min [place] Glucose [Mass/Vol] 99 mg/dL 70 - 99 mg/dL [place] Potassium [Moles/Vol] 4.1 mmol/L 3.7 - 5.3 mmol/L [place] Protein [Mass/Vol] 7.7 g/dL 6.4 - 8.3 g/dL [place] Sodium [Moles/Vol] 138 mmol/L 135 - 144 mmol/L [place] Urea nitrogen [Mass/Vol] 17 mg/dL 8 - 23 mg/dL [place] Hemoglobin A1Con 10-07-2019 HbA1c (Bld) [Mass fraction] 5.3 % Normal 4.8-5.9 [facility] Comment on above: Performed By: #### F TI, FE #### [facility] [address] [place] [address] Manager Retail Store: Otoniel Ash MD #### TSH, LIPR, CP, GLYHGB, CDP #### [facility] [address] [place] [address] Manager Retail Store: Elisabeth Worthy MD HbA1c (Bld) [Mass fraction] 105 mg/dL Normal [facility] Comment on above: Result Comment: The ADA and AACC recommend providing the estimated average glucose result to permit better patient understanding of their HBA1c result. Performed By: #### F TI, FE #### [facility] [employer] [address] [place] [address] Manager Retail Store: Otoniel Ash MD #### TSH, LIPR, CP, GLYHGB, CDP #### [facility] [address] [place] [address] Manager Retail Store: Elisabeth Worthy MD Glucose [Mass/Vol] 105 mg/dL [place] Comment on above: The ADA and AACC rec ommend providing the estimated average glucose result to permit better patient understanding of their HBA1c result. HbA1c (Bld) [Mass fraction] 5.3 % 4.8 - 5.9 % [place] Ironon 10-07-2019 Iron [Mass/Vol] 73 ug/dL 37 - 145 ug/dL [place] Lipid Panelon 10-07-2019 Cholesterol [Mass/Vol] 229 mg/dL High <200 [place] Comment on above: Cholesterol Guidelines: <200 Desirable 200-240 Borderline >240 Undesirable Cholesterol in HDL [Mass/Vol] 67 mg/dL >40 [place] Comment on above: HDL Guidelines: <40 Undesirable 40-59 Borderline >59 Desirable Cholesterol in LDL [Mass/Vol] 127 mg/dL 0 - 130 mg/dL [place] Comment on above: LDL Guidelines: <100 Desirable 100-129 Near to/above Desirable 130-159 Borderline >159 Undesirable Direct (measured) LDL and calculated LDL are not interchangeable tests. Cholesterol in VLDL [Mass/Vol] NOT REPORTED High 1 - 30 mg/dL [place] Cholesterol.total/C holesterol in HDL [Mass ratio] 3.4 {ratio} <5 [place] Triglyceride [Mass/Vol] 175 mg/dL High <150 [place] Comment on above: Triglyceride Guidelines: <150 Desirable 150-199 Borderline 200-499 High >499 Very high Based on AHA Guidelines for fasting triglyceride, December 2011. Lipid Profileon 10-07-2019 Cholesterol [Mass/Vol] 229 mg/dL High <200 [facility] Comment on above: Result Comment: Cholesterol Guidelines: <200 Desirable 200-240 Borderline >240 Undesirable Performed By: #### F TI, FE #### [address] [address] Manager Retail Store: Otoniel Ash MD #### TSH, LIPR, CP, GLYHGB, CDP #### [address] [place] [phone] Manager Retail Store: Elisabeth Worthy MD Cholesterol in HDL [Mass/Vol] 67 mg/dL Normal >40 [facility] Comment on above: Result Comment: HDL Guidelines: <40 Undesirable 40-59 Borderline >59 Desirable Performed By: #### F TI, FE #### [address] [address] Manager Retail Store: Otoniel Ash MD #### TSH, LIPR, CP, GLYHGB, CDP #### [address] [place] [address] Manager Retail Store: Elisabeth Worthy MD Cholesterol in LDL [Mass/Vol] 127 mg/dL Normal 0-130 [facility] Comment on above: Result Comment: LDL Guidelines: <100 Desirable 100-129 Near to/above Desirable 130-159 Borderline >159 Undesirable Direct (measured) LDL and calculated LDL are not interchangeable tests. Performed By: #### F TI, FE #### [address] [address] Manager Retail Store: Otoniel Ash MD #### TSH, LIPR, CP, GLYHGB, CDP #### [address] [place] [address] Manager Retail Store: Elisabeth Worthy MD Cholesterol.total/C holesterol in HDL [Mass ratio] 3.4 {ratio} Normal <5 [facility] Comment on above: Performed By: #### F TI, FE #### [address] [id number] Manager Retail Store: Otoniel Ash MD #### TSH, LIPR, CP, GLYHGB, CDP #### [facility] [address] [place] [address] Manager Retail Store: Elisabeth Worthy MD Triglyceride [Mass/Vol] 175 mg/dL High <150 [facility] Comment on above: Result Comment: Triglyceride Guidelines: <150 Desirable 150-199 Borderline 200-499 High >499 Very high Based on AHA Guidelines for fasting triglyceride, December 2011. Performed By: #### F TI, FE #### [place] [id number] [place], [place] [phone] Manager Retail Store: Otoniel Ash MD #### TSH, LIPR, CP, GLYHGB, CDP #### [facility] [address] [place] [address] Manager Retail Store: Elisabeth Worthy MD Cholesterol in VLDL [Mass/Vol] NOT REPORTED Normal 04-16 [facility] Comment on above: Performed By: #### F TI, FE #### [facility] [address] [place], [place] [phone] Manager Retail Store: Otoniel Ash MD #### TSH, LIPR, CP, GLYHGB, CDP #### [facility] [address] [place] [address] Manager Retail Store: Elisabeth Worthy MD Metabolic Panelon 10-07-2019 GFR/1.73 sq M predicted among non-blacks MDRD (S/P/Bld) [Vol rate/Area] [facility], [place] Comment on above: Stage 1: Some kidney [...] body mass. Additional eGFR calculator available at: http://www.[employer].com/multiple_crcl_2012.htm Otheron 10-07-2019 Interpretation and review of laboratory results Abnormal [place] TSH without Reflexon 020 TSH Qn 1.12 m[IU]/L [place], [place] Thyroid Stim. Horm.on 2019 TSH Qn 1.12 m[IU]/L Normal 0.30-5.00 [facility] Comment on above: Performed By: #### F TI, FE #### [facility] [address] [place], [place] [id number] Manager Retail Store: Otoniel Ash MD #### TSH, LIPR, CP, GLYHGB, CDP #### [facility] [address] [place] [address] Manager Retail Store: Elisabeth Worthy MD Operative Reporton 8 Operative Report MR#: [id number] [facility] Pt. Name: Xena Ewing Room #: 0C Discharge Date: Birthdate: 1955 OPERATIVE REPORTDATE OF SURGERY: 03/17/2018SURGEON: Bart Holcomb M.D.PRODUCTION WORKER: Carlton Galicia M.D.PREOPERATIVE DIAGNOSIS: Right recurrent de [...] Dict: 03/17/2018/10:00 Finn/Chad Andino Trans: 03/17/2018 11:55 A/Marissa_JN:[id number] cc: Anamika Valle M.D. [address] [facility] [address] Normal [facility] POC GLUCOSE LABon 03-17-2018 Glucose mass conc 89 mg/dL Normal 70-100 [facility] Comment on above: Performed By: #### [id number] ####[facility] [place] [address], [facility] Vital Signs Date Time Vital Sign Value Performing Clinician Morena adelina 10-23-2022 11:130400 Body height 165.1 cm Claire Morales MD Work Phone: [facility] 10-23-2022 11:13040 Body weight 73.07 kg Claire Morales MD Work Phone: [facility] 10-23-2022 11:130400 Diastolic blood pressure 71 mm[Hg] Claire Morales MD Work Phone: [facility] 10-23-2022 11:130400 Heart rate 77 /min Claire Moarles MD Work Phone: [facility] 10-23-2022 11:130400 Systolic blood pressure 125 mm[Hg] Claire Morales MD Work Phone: [facility] Encounters Encounter Date Encounter Type Care Provider Facility Start: 12-27-2023 End: 12-27-2023 Patient encounter procedure MD Anamika Valle Work Phone: [facility] Work Phone: Start: 12-27-2023 End: 12-27-2023 ambulatory MD Anamika Valle Work Phone: [facility] Work Phone: Start: 12-17-2023 End: 12-17-2023 Bamboo flowsheet Shirin A Felter FLIGHT COORDINATOR-HYDROMETER CALIBRATOR Work Phone: [facility] Start: 12-17-2023 End: 12-17-2023 Bamboo flowsheet Shirin A Felter FLIGHT COORDINATOR-HYDROMETER CALIBRATOR Work Phone: [facility] Start: 12-17-2023 End: 12-17-2023 Office outpatient new 20 minutes Shirin A Felter FLIGHT COORDINATOR-HYDROMETER CALIBRATOR Work Phone: [facility] Comment on above: Other nonthrombocyto penic purpura (CMS/HCC) (Primary Dx); Actinic keratosis Start: 12-17-2023 End: 12-17-2023 ambulatory SHIRIN ESCOBAR Not Available Start: 07-31-2023 End: 07-31-2023 ambulatory MONIE NAVARRO Not Available Start: 07-03-2023 End: 07-03-2023 ambulatory MONIE RENEEBENTHAL Not Available Start: 05-29-2023 End: 05-29-2023 ambulatory SEVERO CURRY Not Available Start: 05-09-2023 End: 05-09-2023 ambulatory MONIE COYLENTHAL Not Available Start: 03-28-2023 End: 03-28-2023 ambulatory MONIE COYLENTHAL Not Available Start: 01-30-2023 End: 01-30-2023 ambulatory MONIE COYLENTADAM Not Available Start: 12-24-2022 End: 12-24-2022 ambulatory MD Anamika Valle Work Phone: [facility] Work Phone: Start: 12-24-2022 End: 12-24-2022 Patient encounter procedure MD Anamika Valle Work Phone: [facility] Work Phone: Start: 10-23-2022 End: 10-24-2022 ambulatory ANAMIKA VALLE Facility:[facility] Start: 10-23-2022 End: 10-23-2022 Patient encounter procedure Claire Morales MD Work Phone: General Surgery Comment on above: Ventral hernia witho ut obstruction or gangrene (Primary Dx) Start: 09-14-2022 ambulatory Rubén MANUEL Facility [facility] Start: 04-19-2022 End: 04-19-2022 ambulatory DESTINI DOOLEY Facility:[facility] Start: 01-05-2022 End: 01-06-[address] ANAMIKA VALLE Facility:[facility] Start: 12-21-2021 End: 12-21-2021 ambulatory MD Anamika Valle Work Phone: [facility] Work Phone: Start: 12-21-2021 End: 12-21-2021 Patient encounter procedure MD Anamika Valle Work Phone: [facility] Start: 11-09-2021 End: 11-10-[address] ANAMIKA VALLE Facility:[facility] Start: 08-31-2021 End: 08-31-[address] ANAMIKA VALLE Facility:[facility] Start: 06-29-2021 End: 06-29-[address] ANAMIKA VALLE Facility:[facility] Start: 06-21-2021 End: 06-22-[address] ANAMIKA VALLE Facility:[facility] Start: 06-08-2021 End: 06-09-[address] ANAMIKA VALLE Facility:[facility] Start: 10-13-2019 End: 10-14-2019 Patient encounter procedure [facility] Start: 10-13-2019 End: 10-13-2019 Subsequent hospital visit by physician Anamika Valle [facility] Start: 10-07-2019 End: 10-08-2019 Patient encounter procedure [facility] Start: 10-07-2019 End: 10-07-2019 Subsequent hospital visit by physician [facility] Drawing Room [facility] Comment on above: Arrived Start: 03-17-2018 End: 03-18-2018 Patient encounter procedure REMYAlida SEWELLJI Facility:[facility] Start: 02-14-2018 End: 02-15-2018 Patient encounter procedure DEFAULT PHYSICIAN Facility:[facility] Procedures Date Procedure Procedure Detail Performing Clinician Start: 12-27-2023 Screening mammograph y of bilateral breasts MD Anamika Valle Work Phone: Start: 12-17-2023 CRYOTHERAPY SKIN LESION Shirin Escobar FLIGHT COORDINATOR-HYDROMETER CALIBRATOR Work Phone: Start: 12-24-2022 Screening mammograph y of bilateral breasts MD Anamika Valle Work Phone: Start: 04-19-2022 Mammography Shirin alvarez FLIGHT COORDINATOR-HYDROMETER CALIBRATOR Work Phone: Start: 12-21-2021 Screening mammograph y of bilateral breasts MD Anamika Hoy Work Phone: Start: 10-13-2019 Virus centrifuge enh ncd id imfluor stain ea ANAMIKA HOY Start: 10-13-2019 BLOOD OCCULT STOOL S CREEN #1 Anamika M Hoy Work Phone: Start: 10-07-2019 Assay of iron [...] Start: 10-07-2019 Assay of iron Anamika M Hoy Work Phone: Start: 10-07-2019 Assay of thyroid stimulating hormone tsh Anamika M Hoy Work Phone: Start: 10-07-2019 Blood count complete auto&auto difrntl wbc Anamika M Hoy Work Phone: Start: 10-07-2019 Comprehensive metabo lic panel Anamika M Hoy Work Phone: Start: 10-07-2019 Hemoglobin glycosylated a1c Anamika M Hoy Work Phone: Start: 10-07-2019 Lipid panel Anamika M Hoy Work Phone: Start: 10-07-2019 Thyroid horm uptk/th yroid hormone binding ratio Anamika M Hoy Work Phone: Start: 03-17-2018 ANESTH LOWER ARM SURGERY [facility]OU[facility]RA [facility]PER Start: 03-17-2018 INCISION OF TENDON SHEATH ABDULAZIM JI Plan of Treatment Date Care Activity Detail Author Start: 06-01-2028 DTaP/Tdap/Td vaccine (2 - Td) DTaP/Tdap/Td vaccine (2 - Td) [place] Start: 10-06-2024 Lipid panel Lipid screen [place], [place] Start: 06-01-2024 End: 06-01-2024 Patient encounter procedure 06/01/2024 11:00 AM EDT Office Visit [facility] [address] [place] [id number] Severo Curry DO [address] [place] [address] [facility] Start: 12-17-2023 End: 12-17-2023 Patient encounter procedure 12/17/2023 11:05 AM EDT Office Visit [facility] [address] [place] [address] Shawn Shirin A, FLIGHT COORDINATOR-HYDROMETER CALIBRATOR [address] [place] [address] Arrived [facility] Comment on above: Arrived Start: 11-17-2023 Influenza vaccination Influenza Vacc ine (#1) [facility] Start: 04-19-2023 Screening for malign ant neoplasm of breast Mammogram [facility] Start: 11-16-2022 Influenza vaccination INFLUENZA (#1) [facility] Start: 04-21-2022 COVID-19 VACCINE (5 - Pfizer series) COVID-19 VACCINE (5 - Pfizer series) [facility] Start: 03-18-2022 ADVANCE DIRECTIVE DISCUSSION ADVANCE DIRECTIVE DISCUSSION [facility] Start: 03-18-2022 DEPRESSION ASSESSMENT DEPRESSION ASS ESSMENT [facility] Start: 2021 BONE DENSITY BONE DENSITY [facility] Start: 2021 Pneumococcal Vaccine : 65+ Years (2 of 2 - PCV) Pneumococcal Vaccine: 65+ Years (2 of 2 - PCV) [facility] Start: 11-17-2019 Influenza vaccination Flu vaccine (# 1) [place] Start: 2006 Influenza vaccination LUNG CANCER SC RAMIRO [facility] Start: 2006 Screening for malign ant neoplasm of breast Breast cancer screen [place], [place] Start: 2006 Screening for malign ant neoplasm of colon Colon cancer screen colonoscopy [place] Start: 2006 Shingles Vaccine (1 of 2) Shingles Vaccine (1 of 2) [place] Start: 2006 SHINGRIX VACCINE (1 of 2) SHINGRIX VACCINE (1 of 2) [facility] Start: 2001 COLOGUARD (FIT-DNA) COLOGUARD (FIT-D NA) [facility] Start: 2001 Colonoscopy COLONOSCOPY [facility] Start: 2001 COLORECTAL CANCER SCREENING COLORECTAL CANCER SCREENING [facility] Start: [address] COLONOGRAPHY [facility] Start: 2001 DIABETES SCREEN DIABETES SCREEN [facility] Start: 2001 FECAL OCCULT BLOOD FECAL OCCULT BLOO D [facility] Start: 2001 LIPID SCREEN LIPID SCREEN [facility] Start: 2001 SIGMOIDOSCOPY SIGMOIDOSCOPY [facility] Start: 1996 Lipid panel Lipid screen [place], [place] Start: 1996 Mammography MAMMOGRAM [facility] Start: 1977 Screening for malign ant neoplasm of cervix Cervical cancer screen [place] Start: 12-12-1975 Urine microalbumin profile DTAP,TDAP,TD (1 - Tdap) [facility] Start: 1974 HEPATITIS C SCREENING HEPATITIS C [facility] Start: 1974 HIV SCREENING HIV SCREENING [facility] Start: 12-12-1971 HIV screening HIV screen [place], [place] Start: 1962 PNEUMOCOCCAL: 65+ (1 - PCV) PNEUMOCOCCAL: 65+ (1 - PCV) [facility] Start: 1955 Hepatitis C screening Hepatitis C [place], [place] Start: 1955 Screening for malign ant neoplasm of colon [facility] Immunizations Immunization Date Immunization Notes Care Provider Angie stacy 06-05-2018 influenza virus vaccine, unspecified formulation Shirin Escobar FLIGHT COORDINATOR-HYDROMETER CALIBRATOR Work Phone: [facility] 06-01-2018 tetanus toxoid, redu tu diphtheria toxoid, and acellular pertussis vaccine, adsorbed [facility] [place] Payers Date Payer Category Payer Self-pay [id number] 2023 Medicare [id number] 2022 Medicare [id number] 2019 Unknown [id number] 2019 Unknown [employer] - EXCHANGE [id number] 2019-Present [phone] [address] [place] [address] [id number] 1959 Medicare [id number] 1959 Medicare [id number] 1959 Private Health Insurance [facility] [id number] 1955 Unknown [id number] 2.16.840.1.969381.3.579.2.6 47 1956 Unknown [id number] 2.16.840.1.237499.3.579.2.6 47 1956 Unknown [id number] 2.16.840.1.193690.3.579.2.1 73 1956 Unknown [id number] 2.16.840.1.229654.3.579.2.1 73 1956 Unknown [id number] 2.16.840.1.468513.3.579.2.5 93 1956 Unknown [id number] 2.16.840.1.636592.3.579.2.5 93 1956 Unknown [id number] 2.16.840.1.234104.3.579.2.5 93 1956 Unknown [id number] 2.16.840.1.907153.3.579.2.5 93 1956 Unknown [id number] 2.16.840.1.532494.3.579.2.5 93 1956 Unknown [id number] 2.16.840.1.943481.3.579.2.5 93 1956 Unknown [id number] 2.16.840.1.716330.3.579.2.5 93 1956 Unknown [id number] 2.16.840.1.506510.3.579.2.7 27 1955 Unknown [id number] 2.16.840.1.693161.3.579.2.1 259 1956 Unknown [id number] 2.16.840.1.550429.3.579.2.1 259 1956 Unknown [id number] 2.16.840.1.244074.3.579.2.1 259 1956 Unknown [id number] 2.16.840.1.293819.3.579.2.1 259 1956 Unknown [id number] 2.16.840.1.230426.3.579.2.1 259 1956 Unknown [id number] 2.16.840.1.311748.3.579.2.1 259 1956 Unknown [id number] 2.16.840.1.653075.3.579.2.1 259 Medicare Medicare [id number] Unknown [id number] Unknown Unknown HCAP/HFA/FAP Active [id number] Unknown [id number] 2.16.840.1.806807.3.579.2.5 31 Social History Date Type Detail Facility Start: 05-31-2018 [facility] [place] Start: 05-31-2018 Alcohol intake Ex-drinker (finding) [place] Start: 1955 Sex Assigned At Not on file M [place] Exposure to SARS-CoV -2 (event) Not sure [place] Start: 1955 Sex Assigned At Female F [facility] Start: 10-23-2022 Tobacco smoking stat [facility] History of tobacco use Cigarette Smoker [facility] Start: 10-23-2022 End: 12-17-2023 Cigarettes smoked current (pack per day) - Reported 1 [facility] Start: 10-23-2022 Tobacco use and exposure User of smokeless tobacco [facility] Start: 10-23-2022 End: 12-17-2023 Alcohol intake Lifetime non-drinker (finding) [facility] Start: 10-23-2022 End: 12-17-2023 Tobacco use panel [facility] Start: 10-23-2022 [facility] Start: 09-21-2022 [facility] tobacco [facility] Start: 04-27-2023 Alcohol Comment Caffine intake : 2-3 cups per day, coffee; tea [facility] History of Present illness Narrative 12-17-2023 EVE Estrada - 12/17/2023 11:05 AM EDT Note Date [...] limited to risks of scarring, darker or costuming supervisor pigmentary changes, recurrence, incomplete removal and infection. [...] any new/changing lesions documented in this encounter [facility] Progress note 10-23-2022 Note Date & Type Note Facility 10-23-2022 Note HNO ID: [id number] Author: Claire Morales MD Service: ? Author [...] cc: Referring provider Anamika Valle [address] [facility] [id number] Medical Decision Making: Problems: Low: Stable chronic illness Data: Independent interpretation of test from other physician/QHCP Medical Decision Making Level: 3 - Low [facility] History of Present illness Narrative 10-23-2022 Claire [...] cc: Referring provider Anamika Valle [address] [facility] [id number] Medical Decision Making: Problems: Low: Stable chronic illness Data: Independent interpretation of test from other physician/QHCP Medical Decision Making Level: 3 - Low documented in this encounter [facility] Clinical Note 08-31-2021 Note Date & Type Note Facility 08-31-2021 Note OPERATIVE NOTE OPERATION DATE: 08/31/2021 PREOPERATIVE DIAGNOSIS: Acute appendicitis. POSTOPERATIVE DIAGNOSIS: Acute appendicitis. PROCEDURE PERFORMED: Laparoscopic appendectomy. SURGEON: Elisabeth Rehman M.D. PRODUCTION WORKER: PINA Corona ANESTHESIA: General, 0.5% Marcaine for [...] taken to the PACU in fair condition. [facility] Signed and Approved by: DR ELISABETH REHMAN . 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 Advance Directives and Living Will Power of Wire Drawing Die Maker Advance Directive Response Recorded Date/ Time Advance Directives No June 06, 2 018 3:52pm Chief Complaint and Reason for Visit Chief Complaint Screening Additional Source Comments INFORMATION SOURCE (unrecogn ized section and content) DATE CREATED AUTHOR 03/21/2018 [facility] DATE CREATED AUTHOR AUTHOR'S ORGANIZ ATION 10/14/2019 [facility] DATE CREATED AUTHOR AUTHOR'S ORGANIZ ATION 04/27/2022 [facility] DATE CREATED AUTHOR AUTHOR'S ORGANIZ ATION 09/17/2022 [facility] DATE CREATED AUTHOR AUTHOR'S ORGANIZ ATION 10/27/2022 [facility] DATE CREATED AUTHOR AUTHOR'S ORGANIZ ATION 12/18/2023 [facility] EPIC DATE CREATED AUTHOR AUTHOR'S ORGANIZ ATION 01/03/2024 [facility] Care Teams (unrecognized sec tion and content) Team Status: Active Member Role Status Dates Anamika Valle MD Primary Care Provider Active Team Status: Inactive Member Role Status Dates Anamika Valle MD Primary Care Provider Active Referral Self Attending Provider Active Prior Authorization Technician Relationship Specialty Start Date End Date Anamika Valle MD PCP - General 10/24/04 Anamika Valle MD [address] [place] [address] Referring Family Medicine 10/05/22 Prior Authorization Technician Relationship Specialty Start Date End Date Anamika Valle MD [address] [place] [address] PCP - General Family Medicine 09/21/22 Prior Authorization Technician Relationship Specialty Start Date End Date Anamika Valle MD [address] [place] [address] PCP - General Family Medicine 09/21/22 Team [...] or prosecute any alcohol or drug abuse patient.[facility] Reason for Visit (unrecogniz ed section and [...] BE BASED ON THE PRIMARY CLINICAL RECORDS. [facility]. provides no warranty or guarantee of the accuracy or completeness of information in this document.
== END 2024-01-04 07:05 | disposition home or self-care (01) ==
LOC: LAB 07:04
PROVIDERS: PCP Family Medicine; Visit Provider Family Medicine
DX: R23.3 Spontaneous ecchymoses (principal); Z12.12 Encounter for screening for malignant neoplasm of rectum; D64.9 Anemia, unspecified; E03.9 Hypothyroidism, unspecified
CPT/HCPCS: G0328

== ENCOUNTER 2024-01-19 06:28 | Emergency (ER) | payer MEDICARE, SELFPAY ==
[2024-01-19 06:35] VITALS: BP 118/82; PULSE 52; TEMP 36.4; O2SAT 99; BMI 22.0
--- OUTSIDE RECORDS SUMMARY | 2024-01-19 06:35 | XMS_ITS | CCD ---
Author Organization [facility] Care Team Providers Care Illuminating Engineer Name Role Phone PHYSICIAN, DEFAULT Unavailable Unavailable PHYSICIAN, DEFAULT Unavailable Unavailable TORI ANAMIKA Unavailable Unavailable IJ, ABDULAZIM Unavailable Unavailable JI, ABDULAZIM Unavailable Unavailable JANINE VALLELAS Unavailable Unavailable JANINE VALLELAS Unavailable Unavailable VT Unavailable Unavailable JI, ABDULAZIM Unavailable Unavailable VT Unavailable Unavailable BOUCHRA HARPER Unavailable Unavailable ANAMIKA [...] Consulting Unavailable TORI, DR WILLSON Admitting Unavailable TORI, DR WILLSON Attending Unavailable TORI, DR WILLSON Primary Care Unavailable TORI, DR WILLSON Consulting Unavailable MARQUES, DR ENIO Vasquez Consulting Unavailable DESTINI DOOLEY Admitting Unavailable DESTINI DOOLEY Attending Unavailable TORI, DR WILLSON Primary Care Unavailable DESTINI DOOLEY Consulting Unavailable Anamika Valle MD Primary Care Provider [phone] Anamika Valle MD Unavailable ANAMIKA VALLE Referring Unavailable ANAMIKA VALLE Primary Care Unavailable CLAIRE MORALES Attending Unavailable MD Anamika Valle Primary Care Provider [phone] Self, Referral Attending Provider Unavailable Anamika Valle MD Primary Care Provider [phone] MONIE NAVARRO Attending Unavailable MELANIE, MONIE Harrington Attending Unavailable MONIE NAVARRO Attending Unavailable DESI CURRY Attending Unavailable MELANIE, MONIE Harrington Attending Unavailable MONIE NAVARRO Attending Unavailable LUCY ESCOBAR Attending Unavailable MD Anamika Valle Primary Care Provider [phone] MD Anamika aVlle Referring Provider [phone] Self, Referral Attending Provider Unavailable Anamika Valle Referring Unavailable Anamika Valle Primary Care Unavailable Self, Referral Attending Unavailable Self, Referral Admitting Unavailable Rubén MANUEL Attending Unavailable Anamika Valle Referring Unavailable Allergies Allergy Classification Reported Allergen(s) Allergy Type Date of Onset Reaction(s) Facility (9 sources) Codeine; Translations: [CODEINE] Drug Allergy 5 Nausea Only [facility] Repository (1 source) Etodolac Drug Allergy 7 [facility] (1 source) no latex allergy [Other] Propensity to adverse reactions 5 [facility] (4 sources) OTHER; Translations: [OTHER] Propensity to adverse reactions (disorder) 5 [facility] Repository (3 sources) Etodolac Allergy to substance 3 [facility] (3 sources) Sulfonamides (Antibiotic) Drug Allergy 2 Hives [facility] (1 source) Unable to Assess Drug allergy (disorder) 9 [facility] Repository Medications Current Medications Medication Drug [...] diego th every 12 hours. estrogens, conjugated (snf) 0.625 mg oral tablet (1 source) Estrogen [...] Test Name Value Interpretation Reference Range Facility Provider Letteron 01-10-2024 Provider Letter Provider Letter January 10, 2024 XEAN EWING [address] [place] [address] [address] [place] [id number] : 1955 Dear Gildardo, We have been trying to reach you with no success regarding a referral from Dr Valle. It is important that you return our call upon receiving this letter. Also, at the time of your call, please provide us with your current information. Thank you for your prompt attention to this matter. Sincerely, [facility] General Surgery [phone] Normal [facility] MM screening mammo BI w/CADo n 12-27-2023 MM screening mammo BI w/CAD [facility] [address] [place] [id number] Mammography Report Signed Patient: Xena Ewing MR#: [id number] : 1955 Acct:[id number] Age/Sex: 68 / F ADM Date: 12/27/23 Loc: [place] Room: Type: [facility] Attending Dr: Referral Self Copies [...] for the next mammogram. Impression dictated by: Terra Tam Jr.OIrene12/27/2023 1:07 PM Dictation Location: [facility] Transcribed By: [facility] 12/27/23 1307 Dictated By: Blake Schmidt Jr, DO 12/27/23 1304 Signed By: 12/27/23 1307 Normal [facility] Information 12-16 [facility] 10-23-2022 CNOV Office Visit (GENBMI ) -------- XENA EWING ([id number]) 1955 F T Date Time Provider Department [...] provider Anamika Valle [address] [facility] [id number] Medical Decision Making: Problems: Low: Stable chronic illness Data: Independent interpretation of test from other physician/QHCP Medical Decision Making Level: 3 - Low Referring Provider: ANAMIKA VALLE [[id number]] Allergies As of Date: 10/23/2022 Noted Allergy [...] ANXIETY - (more content not included)... Normal [facility] PAP ACOG PANEL 2: 30 to 65on 04-26-2022 . . Normal [facility] Comment on above: Result Comment: Perf ormed at: WB Performed By: #### [id number] #### [facility] [address] [address] [address] Kayy Virgen Age Gdln ACOG Testing 30-65 Normal [facility] Comment on above: Performed By: #### 4 [id number] #### [facility] [address] [address] [address] Kayy Virgen DIAGNOSIS: Comment Normal [facility] Comment on above: Result Comment: UNSA TISFACTORY FOR EVALUATION. Performed at: WB Performed By: #### 4 [id number] #### [facility] [address] [place] [address] Dr. Kayy Virgen HPV Aptima Negative Normal Negative [facility] Comment on above: Result Comment: This nucleic acid amplification test detects fourteen high-risk HPV types (16,18,31,33,35,39,45,51,52,56,58,59,66,68) without differentiation. Performed at: =G Performed By: #### 4 [id number] #### [facility] [address] [address] [address] Kayy Virgen HPV Genotype Reflex Comment Normal [facility] Comment on above: Result Comment: Crit eria not met, HPV Genotype not performed. Performed at: WB Performed By: #### 4 [id number] #### [facility] [address] [address] [address] Kayy Virgen Methodology: Comment [facility] Comment on above: Result Comment: This liquid based ThinPrep(R) pap test was screened with the use of an image guided system. Performed at: WB Performed By: #### 4 [id number] #### [facility] [address] [place] [address] Dr. Kayy Virgen Note: Comment Normal [facility] Comment on above: Result Comment: The Pap smear is a screening test designed to aid in the detection of premalignant and malignant conditions of the uterine cervix. It is not a diagnostic procedure and should not be used as the sole means of detecting cervical cancer. Both false-positive and false-negative reports do occur. . Performed at: WB Performed By: #### 4 [id number] #### [facility] [address] [place] [address] Dr. Kayy Virgen Performed by: Comment Normal [facility] Comment on above: Result Comment: Arturo Peters, Information Technology Technician (ASCP) Performed at: KWCYT Performed By: #### 4 [id number] #### [facility] [address] [place] [address] Dr. Kayy Virgen QC reviewed by: Comment Normal [facility] Comment on above: Result Comment: Pepe Cordova, Supervisory Information Technology Technician (ASCP) Performed at: WB Performed By: #### 4 [id number] #### [facility] [address] [place] [address] Dr. Kayy Virgen Recommendation: Comment Normal [facility] Comment on above: Result Comment: Sugg est follow up as clinically appropriate. Performed at: WB Performed By: #### 4 [id number] #### [facility] [address] [place] [address] Dr. Kayy Virgen Specimen adequacy: Comment Normal [facility] Comment on above: Result Comment: Spec imen processed and examined but unsatisfactory for evaluation of epithelial abnormality because of insufficient cellularity. Performed at: WB Performed By: #### 4 [id number] #### [facility] [address] [place] [address] Dr. Kayy Virgen US THYROIDon 01-05-2022 US [...] TR 4 nodule, previously biopsied TI-RADS: The [place] [employer] TI-RADS committee's white paper recommendations for thyroid lesions classified as TR3 (mildly suspicious) are listed below: > 1.5 cm. Follow-up ultrasound in 1, 3, and 5 years. > 2.5 cm. FNA. J. Am Anais Radiol 2017;14:587-595. Electronically authenticated by: ENIO MOHAN Date: 2022-01-05 15:25 Normal [facility] T4, T3U, FTI LABCORPon 11-10 Free Thyroxine Index 2.0 Normal 1.2-4.9 [facility] Comment on above: Performed By: #### T HYLC ####[facility] [address] [place] [address]Dr. Kayy Virgen T3 Uptake 26 % Normal 24-39 [facility] Comment on above: Performed By: #### T HYLC ####[facility] [address] [place] [id number]. Kayy Virgen T4 [Mass/Vol] 7.5 ug/dL Normal 4.5-12.0 [facility] Comment on above: Performed By: #### T HYLC ####[facility] [address] [place] [phone]. Kayy Virgen CBC AUTO DIFFon 11-09-2021 BASO # 0.1 103/ul Normal 0.0-0.1 [facility] Comment on above: Performed By: #### C BC ####[facility] [address] [place] [id number]. Kayy Virgen Basophils/100 WBC (Bld) 2.1 % Critically high 0.2-2.0 [facility] Comment on above: Performed By: #### C BC ####[facility] [address] [place] [address]Dr. Kayy Virgen EO # 0.2 103/ul Normal 0.0-0.7 [facility] Comment on above: Performed By: #### C BC ####[facility] [address] [place] [address]Dr. Kayy Virgen Eosinophils/100 WBC (Bld) 5.1 % Normal 0.9-7.0 [facility] Comment on above: Performed By: #### C BC ####[facility] [address] [place], [place] [address]Dr. Kayy Virgen Erythrocyte distribution width (RBC) [Ratio] 14.6 % Normal 11.0-15.0 [facility] Comment on above: Performed By: #### C BC ####[facility] [address] [place], [place] [address]Dr. Kayy Virgen Hematocrit (Bld) [Volume fraction] 38.5 % Normal 36.0-48.0 [facility] Comment on above: Performed By: #### C BC ####[facility] [address] [place], [place] [address]Dr. Kayy Virgen Hemoglobin (Bld) [Mass/Vol] 12.4 g/dL Normal 12.0-16.0 [facility] Comment on above: Performed By: #### C BC ####[facility] [address] [place], [place] [address]Dr. Kayy Virgen IG # 0.01 10e3/ul Normal 0.00-0.03 [facility] Comment on above: Performed By: #### C BC ####[facility] [address] [place], [place] [address]Dr. Kayy Virgen IG % 0.2 % Normal 0.0-0.5 [facility] Comment on above: Performed By: #### C BC ####[facility] [address] [place], [place] [address]Dr. Kayy Virgen LYMPH # 1.5 103/ul Normal 1.2-3.8 [facility] Comment on above: Performed By: #### C BC ####[facility] [address] [place], [place] [address]Dr. Kayy Virgen Lymphocytes/100 WBC (Bld) 33.7 % Normal 20.5-60.0 [facility] Comment on above: Performed By: #### C BC ####[facility] [address] [place] [address]Dr. Kayy Virgen MANUAL DIFF REQ NO Normal [facility] Comment on above: Performed By: #### C BC ####[facility] [address] [place] [phone]. Kayy Virgen MCH (RBC) [Entitic mass] 26.7 pg Normal 26.7-34.0 [facility] Comment on above: Performed By: #### C BC ####[facility] [address] [place] [address]Dr. Kayy Virgen MCHC (RBC) [Mass/Vol] 32.2 g/dL Normal 29.9-35.2 [facility] Comment on above: Performed By: #### C BC ####[facility] [address] [place], [place] [address]Dr. Kayy Virgen MCV (RBC) [Entitic vol] 82.8 fL Normal 81.0-99.0 [facility] Comment on above: Performed By: #### C BC ####[facility] [address] [place], [place] [address]Dr. Kayy Virgen MONO # 0.5 103/ul Normal 0.3-0.8 [facility] Comment on above: Performed By: #### C BC ####[facility] [address] [place], [place] [address]Dr. Kayy Virgen Monocytes/100 WBC (Bld) 11.9 % Normal 1.7-12.0 [facility] Comment on above: Performed By: #### C BC ####[facility] [address] [place], [place] [address]Dr. Kayy Virgen NEUT # 2.0 103/ul Normal 1.4-6.5 [facility] Comment on above: Performed By: #### C BC ####[facility] [address] [place], [place] [address]Dr. Kayy Virgen Neutrophils/100 WBC (Bld) 47.0 % Normal 43.0-75.0 [facility] Comment on above: Performed By: #### C BC ####[facility] [address] [place] [phone] Virgen Platelet mean volume (Bld) [Entitic vol] 9.7 fL Normal 9.5-13.5 [facility] Comment on above: Performed By: #### C BC ####[facility] [address] [place] [address]Dr. Kayy Virgen PLT 269 103/ul Normal 150-450 [facility] Comment on above: Performed By: #### C BC ####[facility] [address] [place] [address]Dr. Kayy Virgen RBC 4.65 106/ul Normal 4.20-5.40 [facility] Comment on above: Performed By: #### C BC ####[facility] [address] [place] [address]DrIrene Virgen WBC 4.3 103/ul Normal 4.0-11.0 [facility] Comment on above: Performed By: #### C BC ####[facility] [address] [place] [phone]. Kayy Virgen GLYCOHEMOGLOBIN A1Con 2021 ADA RECOMMENDATION SEE BELOW Normal [facility] Comment on above: Result Comment: ADA RECOMMENDED LIMIT 4.0 - 6.0 ADA THERAPEUTIC TARGET < 7.0 ACTION SUGGESTED > 7.0 Performed By: #### A 1C #### [facility] [address] [address] [address] Kayy Virgen Glucose [Mass/Vol] 117 mg/dL Normal [facility] Comment on above: Performed By: #### A 1C #### [facility] [address] [address] [address] Kayy Virgen HbA1c (Bld) [Mass fraction] 5.7 % Normal 4.5-6.2 [facility] Comment on above: Performed By: #### A 1C #### [facility] [address] [address] [address] Kayy Virgen IRONon 08-25-2022 Iron [Mass/Vol] 100.0 ug/dL Normal 50.0-170.0 [facility] Comment on above: Performed By: #### I STEPHANI #### [facility] [address] [place] [address] Dr. Kayy Virgen PROF 14(COMP METB)on 022 Albumin [Mass/Vol] 4.0 g/dL Normal 3.4-5.0 [facility] Comment on above: Performed By: #### C MP, TSH #### [facility] [address] [place] [address] Dr. Kayy Virgen Albumin/Globulin [Mass ratio] 1.1 {ratio} Normal [facility] Comment on above: Performed By: #### C MP, TSH #### [facility] [address] [place] [address] Dr. Kayy Virgen ALP [Catalytic activity/Vol] 109 U/L Normal 46-116 [facility] Comment on above: Performed By: #### C MP, TSH #### [facility] [address] [place] [address] Dr. Kayy Virgen ALT [Catalytic activity/Vol] 26 U/L Normal 14-59 [facility] Comment on above: Performed By: #### C MP, TSH #### [facility] [address] [place] [address] Dr. Kayy Virgen Anion gap [Moles/Vol] 11.2 mmol/L Normal [facility] Comment on above: Performed By: #### C MP, TSH #### [facility] [address] [place] [address] Dr. Kayy Virgen AST [Catalytic activity/Vol] 58 U/L Critically high 15-37 [facility] Comment on above: Performed By: #### C MP, TSH #### [facility] [address] [place] [address] Dr. Kayy Virgen Bilirubin [Mass/Vol] 0.4 mg/dL Normal 0.2-1.0 [facility] Comment on above: Performed By: #### C MP, TSH #### [facility] [address] [place] [address] Dr. Kayy Virgen Calcium [Mass/Vol] 9.8 mg/dL Normal 8.5-10.1 [facility] Comment on above: Performed By: #### C MP, TSH #### [facility] [address] [place] [address] Dr. Kayy Virgen Chloride [Moles/Vol] 103 mmol/L Normal 98-107 [facility] Comment on above: Performed By: #### C MP, TSH #### [facility] [address] [place] [address] Dr. Kayy Virgen CO2 [Moles/Vol] 28.2 mmol/L Normal 21.0-32.0 [facility] Comment on above: Performed By: #### C MP, TSH #### [facility] [address] [place] [address] Dr. Kayy Virgen Creatinine [Mass/Vol] 0.98 mg/dL Normal 0.55-1.02 [facility] Comment on above: Performed By: #### C MP, TSH #### [facility] [address] [place] [address] Dr. Kayy Virgen EGFR-AF ENGLISH >60 Normal >=60 [facility] Comment on above: Performed By: #### C MP, TSH #### [facility] [address] [place] [address] Dr. Kayy Virgen EGFR-NON AF ENGLISH 57 mL/min/1.73m2 Critically low >=60 [facility] Comment on above: Performed By: #### C MP, TSH #### [facility] [address] [place] [address] Dr. Kayy Virgen Globulin (S) [Mass/Vol] 3.8 g/dL Normal [facility] Comment on above: Performed By: #### C MP, TSH #### [facility] [address] [place] [address] Dr. Kayy Virgen Glucose [Mass/Vol] 102 mg/dL Normal 74-106 [facility] Comment on above: Performed By: #### C MP, TSH #### [facility] [address] [place] [address] Dr. Kayy Virgen Potassium [Moles/Vol] 4.4 mmol/L Normal 3.5-5.1 [facility] Comment on above: Performed By: #### C MP, TSH #### [facility] [address] [address] [address] Kayy Virgen Protein [Mass/Vol] 7.8 g/dL Normal 6.4-8.2 [facility] Comment on above: Performed By: #### C MP, TSH #### [facility] [address] [address] [address] Kayy Virgen Sodium [Moles/Vol] 138 mmol/L Normal 136-145 [facility] Comment on above: Performed By: #### C MP, TSH #### [facility] [address] [place] [address] Dr. Kayy Virgen Urea nitrogen [Mass/Vol] 22.0 mg/dL Critically high 7.0-18.0 [facility] Comment on above: Performed By: #### C MP, TSH #### [facility] [address] [place] [address] Dr. Kayy Virgen Urea nitrogen/Creatinine [Mass ratio] 22.4 mg/mg Normal [facility] Comment on above: Performed By: #### C MP, TSH #### [facility] [address] [place] [address] Dr. Kayy Virgen TSHon 11-09-2021 TSH 1.200 uIU/mL Normal 0.358-3.740 [facility] Comment on above: Performed By: #### C MP, TSH #### [facility] [address] [place] [address] Dr. Kayy Virgen AMYLASEon 08-31-2021 Amylase [Catalytic activity/Vol] 34 U/L Normal 25-115 [facility] Comment on above: Performed By: #### A MY, CMP, LIPA ####[facility] [address] [address]Dr. Kayy Virgen CBC AUTO DIFFon 08-31-2021 BASO # 0.1 103/ul Normal 0.0-0.1 [facility] Comment on above: Performed By: #### C BC ####[facility] [address] [id number]. Kayy Virgen Basophils/100 WBC (Bld) 0.8 % Normal 0.2-2.0 [facility] Comment on above: Performed By: #### C BC ####[facility] [address] [place], [place] [address]Dr. Kayy Virgen EO # 0.0 103/ul Normal 0.0-0.7 [facility] Comment on above: Performed By: #### C BC ####[facility] [address] [place], [place] [address]Dr. Kayy Virgen Eosinophils/100 WBC (Bld) 0.6 % Critically low 0.9-7.0 [facility] Comment on above: Performed By: #### C BC ####[facility] [address] [place], [place] [address]Dr. Kayy Virgen Erythrocyte distribution width (RBC) [Ratio] 13.9 % Normal 11.0-15.0 [facility] Comment on above: Performed By: #### C BC ####[facility] [address] [place], [place] [address]Dr. Kayy Virgen Hematocrit (Bld) [Volume fraction] 37.7 % Normal 36.0-48.0 [facility] Comment on above: Performed By: #### C BC ####[facility] [address] [place], [place] [address]Dr. Kayy Virgen Hemoglobin (Bld) [Mass/Vol] 12.3 g/dL Normal 12.0-16.0 [facility] Comment on above: Performed By: #### C BC ####[facility] [address] [place], [place] [address]Dr. Kayy Virgen IG # 0.02 10e3/ul Normal 0.00-0.03 [facility] Comment on above: Performed By: #### C BC ####[facility] [address] [place], [place] [address]Dr. Kayy Virgen IG % 0.3 % Normal 0.0-0.5 [facility] Comment on above: Performed By: #### C BC ####[facility] [address] [place] [address]Dr. Kayy Virgen LYMPH # 1.4 103/ul Normal 1.2-3.8 [facility] Comment on above: Performed By: #### C BC ####[facility] [address] [place] [address]Dr. Kayy Virgen Lymphocytes/100 WBC (Bld) 20.8 % Normal 20.5-60.0 [facility] Comment on above: Performed By: #### C BC ####[facility] [address] [place] [address]Dr. Kayy Virgen MANUAL DIFF REQ NO Normal [facility] Comment on above: Performed By: #### C BC ####[facility] [address] [place] [address]Dr. Kayy Virgen MCH (RBC) [Entitic mass] 26.9 pg Normal 26.7-34.0 [facility] Comment on above: Performed By: #### C BC ####[facility] [address] [place] [address]Dr. Kayy Virgen MCHC (RBC) [Mass/Vol] 32.6 g/dL Normal 29.9-35.2 [facility] Comment on above: Performed By: #### C BC ####[facility] [address] [address]Dr. Kayy Virgen MCV (RBC) [Entitic vol] 82.5 fL Normal 81.0-99.0 [facility] Comment on above: Performed By: #### C BC ####[facility] [address] [place] [address]Dr. Kayy Virgen MONO # 0.6 103/ul Normal 0.3-0.8 [facility] Comment on above: Performed By: #### C BC ####[facility] [address] [address]Dr. Kayy Virgen Monocytes/100 WBC (Bld) 8.8 % Normal 1.7-12.0 [facility] Comment on above: Performed By: #### C BC ####[facility] [address] [place] [address]Dr. Kayy Virgen NEUT # 4.5 103/ul Normal 1.4-6.5 [facility] Comment on above: Performed By: #### C BC ####[facility] [address] [place] [address]Dr. Kayy Virgen Neutrophils/100 WBC (Bld) 68.7 % Normal 43.0-75.0 [facility] Comment on above: Performed By: #### C BC ####[facility] [address] [address]Dr. Kayy Virgen Platelet mean volume (Bld) [Entitic vol] 10.2 fL Normal 9.5-13.5 [facility] Comment on above: Performed By: #### C BC ####[facility] [address] [place], [place] [address]Dr. Kayy Virgen PLT 265 103/ul Normal 150-450 [facility] Comment on above: Performed By: #### C BC ####[facility] [address] [address]Dr. Kayy Virgen RBC 4.57 106/ul Normal 4.20-5.40 [facility] Comment on above: Performed By: #### C BC ####[facility] [address] [place], [place] [address]Dr. Kayy Virgen WBC 6.5 103/ul Normal 4.0-11.0 [facility] Comment on above: Performed By: #### C BC ####[facility] [address] [place], [place] [address]Dr. Kayy Virgen CT ABD/PELVIS WO CONon 08-31 [...] by: JERONIMO CASTLE Date: 2021-08-31 12:25 Normal [facility] ER URINE PROFILEon 2 Bilirubin Ql (U) Negative Normal NEGATIVE [facility] Comment on above: Performed By: #### E RUR #### [facility] [address] [place] [address] Dr. Kayy Virgen Clarity (U) CLEAR Normal CLEAR [facility] Comment on above: Performed By: #### E RUR #### [facility] [address] [place] [address] Dr. Kayy Virgen Color (U) LT. YELLOW Normal YELLOW [facility] Comment on above: Performed By: #### E RUR #### [facility] [address] [place] [address] Dr. Kayy Virgen ERUKATHLEEND A micrscopic examina tion will be performed if indicated. Normal [facility] Comment on above: Performed By: #### E RUR #### [facility] [address] [place] [address] Dr. Kayy Virgen Glucose Ql (U) Negative Normal NEGATIVE [facility] Comment on above: Performed By: #### E RUR #### [facility] [address] [place] [address] Dr. Kayy Virgen Hemoglobin Ql (U) Negative Normal NEGATIVE [facility] Comment on above: Performed By: #### E RUR #### [facility] [address] [place] [address] Dr. Kayy Virgen Ketones Ql (U) Negative Normal NEGATIVE [facility] Comment on above: Performed By: #### E RUR #### [facility] [address] [place] [address] Dr. Kayy Virgen LEUKOCYTES Negative Normal NEGATIVE [facility] Comment on above: Performed By: #### E RUR #### [facility] [address] [place] [address] Dr. Kayy Virgen Nitrite Ql (U) Negative Normal NEGATIVE [facility] Comment on above: Performed By: #### E RUR #### [facility] [address] [place] [address] Dr. Kayy Virgen pH (U) 6.0 [pH] Normal 5-9 [facility] Comment on above: Performed By: #### E RUR #### [facility] [address] [place] [address] Dr. Kayy Virgen SPEC GRAVITY <=1.005 Abnormal 1.005-<=1.025 [facility] Comment on above: Performed By: #### E RUR #### [facility] [address] [place] [address] Dr. Kayy Virgen UA PROTEIN Negative Normal NEGATIVE/ TRACE [facility] Comment on above: Performed By: #### E RUR #### [facility] [address] [place] [address] Dr. Kayy Virgen UR MICRO IND NOT INDICATED Normal [facility] Comment on above: Performed By: #### E RUR #### [facility] [address] [place] [address] Dr. Kayy Virgen Urobilinogen Qn (U) 0.2 {Cuauhtemoc'U}/dL Normal 0.2 - 1. 0 [facility] Comment on above: Performed By: #### E RUR #### [facility] [address] [address] [address] Kayy Virgen LIPASEon 08-31-2021 Lipase [Catalytic activity/Vol] 73.0 U/L Normal 73.0-393.0 [facility] Comment on above: Performed By: #### A MY, CMP, LIPA #### [facility] [address] [address] [address] Kayy Virgen PROF 14(COMP METB)on 022 Albumin [Mass/Vol] 3.6 g/dL Normal 3.4-5.0 [facility] Comment on above: Performed By: #### A MY, CMP, LIPA ####[facility] [address] [address]Dr. Kayy iVrgen Albumin/Globulin [Mass ratio] 0.9 {ratio} Normal [facility] Comment on above: Performed By: #### A MY, CMP, LIPA ####[facility] [address] [address]Dr. Kayy Virgen ALP [Catalytic activity/Vol] 98 U/L Normal 46-116 [facility] Comment on above: Performed By: #### A MY, CMP, LIPA ####[facility] [address] [address]Dr. Kayy Virgen ALT [Catalytic activity/Vol] 22 U/L Normal 14-59 [facility] Comment on above: Performed By: #### A MY, CMP, LIPA ####[facility] [address] [address]Dr. Kayy Virgen Anion gap [Moles/Vol] 12.6 mmol/L Normal [facility] Comment on above: Performed By: #### A MY, CMP, LIPA ####[facility] [address] [address]Dr. Kayy Virgen AST [Catalytic activity/Vol] 44 U/L Critically high 15-37 [facility] Comment on above: Performed By: #### A MY, CMP, LIPA ####[facility] [address] [address]Dr. Kayy Virgen Bilirubin [Mass/Vol] 0.5 mg/dL Normal 0.2-1.0 [facility] Comment on above: Performed By: #### A MY, CMP, LIPA ####[facility] [address] [place], [place] [address]Dr. Kayy Virgen Calcium [Mass/Vol] 9.2 mg/dL Normal 8.5-10.1 [facility] Comment on above: Performed By: #### A MY, CMP, LIPA ####[facility] [address] [place], [place] [address]Dr. Kayy Virgen Chloride [Moles/Vol] 104 mmol/L Normal 98-107 [facility] Comment on above: Performed By: #### A MY, CMP, LIPA ####[facility] [address] [place], [place] [address]Dr. Kayy Virgen CO2 [Moles/Vol] 24.3 mmol/L Normal 21.0-32.0 [facility] Comment on above: Performed By: #### A MY, CMP, LIPA ####[facility] [address] [place], [place] [address]Dr. Kayy Virgen Creatinine [Mass/Vol] 0.87 mg/dL Normal 0.55-1.02 [facility] Comment on above: Performed By: #### A MY, CMP, LIPA ####[facility] [address] [place], [place] [address]Dr. Kayy Virgen EGFR-AF ENGLISH >60 Normal >=60 [facility] Comment on above: Performed By: #### A MY, CMP, LIPA ####[facility] [address] [place], [place] [address]Dr. Kayy Virgen EGFR-NON AF ENGLISH >60 Normal >=60 [facility] Comment on above: Performed By: #### A MY, CMP, LIPA ####[facility] [address] [place], [place] [address]Dr. Kayy Virgen Globulin (S) [Mass/Vol] 4.0 g/dL Normal [facility] Comment on above: Performed By: #### A MY, CMP, LIPA ####[facility] [address] [address]Dr. Kayy Virgen Glucose [Mass/Vol] 96 mg/dL Normal 74-106 [facility] Comment on above: Performed By: #### A MY, CMP, LIPA ####[facility] [address] [address]Dr. Kayy Virgen Potassium [Moles/Vol] 3.9 mmol/L Normal 3.5-5.1 [facility] Comment on above: Performed By: #### A MY, CMP, LIPA ####[facility] [address] [address]Dr. Kayy Virgen Protein [Mass/Vol] 7.6 g/dL Normal 6.4-8.2 [facility] Comment on above: Performed By: #### A MY, CMP, LIPA ####[facility] [address] [address]Dr. Kayy Virgen Sodium [Moles/Vol] 137 mmol/L Normal 136-145 [facility] Comment on above: Performed By: #### A MY, CMP, LIPA ####[facility] [address] [address]Dr. Kayy Virgen Urea nitrogen [Mass/Vol] 11.0 mg/dL Normal 7.0-18.0 [facility] Comment on above: Performed By: #### A MY, CMP, LIPA ####[facility] [address] [address]Dr. Kayy Virgen Urea nitrogen/Creatinine [Mass ratio] 12.6 mg/mg Normal [facility] Comment on above: Performed By: #### A MY, CMP, LIPA ####[facility] [address] [address]Dr. Kayy Virgen US THYROID FN ASP BXon 07-05 US THYROID FN ASP BX Begin Addendum #1 COLLECTED DATE/TIME: 06/29/2021 13:56 EDT Final Diagnosis Report for [facility] [place] (A/B) RIGHT THYROID NODULE; FINE NEEDLE [...] (FNA). 2. Pathology results are pending. Normal [facility] US THYROIDon 06-21-2021 US THYROID [...] nodule. Fine needle aspiration recommended TI-RADS: The [employer] TI-RADS committee's white paper recommendations for thyroid lesions classified as TR4 (moderately suspicious) are listed below: > 1.0 cm. Follow-up ultrasound in 1, 2, 3, and 5 years. > 1.5 cm. FNA. J. Am Anais Radiol 2017;14:587-595. Electronically authenticated by: ENIO MOHAN Date: 2021-06-21 12:10 Normal [facility] US CAROTID ART BILon 06-08- 022 US CAROTID ART ANDREAS EXAMINATION: US [...] by: JERONIMO CASTLE Date: 2021-06-08 13:16 Normal [facility] Blood Occult Stool Screen #1 on 10-13-2019 Date, Stool #1 [id number] [facility] [place], [place] Date, Stool [...] 2019 Occult Blood 1 Negative Normal NEG [facility] Comment on above: Performed By: #### O BN #### Lab [address] [place] [address] Merchandise Clerk: Eris Worthy MD Specimen 1 Date [facility] Comment on above: Performed By: #### O BN #### [facility] [address] [place] [address] Merchandise Clerk: Eris Worthy MD Specimen 1 Time 1200 Normal [facility] Comment on above: Performed By: #### O BN #### [facility] [address] [place] [address] Merchandise Clerk: Eris Worthy MD Specimen 2 Date NOT REPORTED Normal [facility] Comment on above: Performed By: #### O BN #### Lab [address] [place], [place] [id number] Merchandise Clerk: Eris Worthy MD Specimen 2 Time NOT REPORTED Normal [facility] Comment on above: Performed By: #### O BN #### [facility] [address] [place] [address] Merchandise Clerk: Eris Worthy MD Specimen 3 Date NOT REPORTED Normal [facility] Comment on above: Performed By: #### O BN #### Lab [address] [place], [place] [id number] Merchandise Clerk: Eris Worthy MD Specimen 3 Time NOT REPORTED Normal [facility] Comment on above: Performed By: #### O BN #### [facility] [address] [place], [place] [id number] Merchandise Clerk: Eris Worthy MD Occult Blood 2 NOT REPORTED Normal NEG [facility] Comment on above: Performed By: #### O BN #### Lab [address] [place] [address] Merchandise Clerk: Eris Worthy MD Occult Blood 3 NOT REPORTED Normal NEG [facility] Comment on above: Performed By: #### O BN #### [facility] [address] [place] [address] Merchandise Clerk: Eris Worthy MD Free Thyroxine Indexon 10-07 FTI Ratio 2.0 ug/dL Normal 1.4-3.1 [facility] Comment on above: Performed By: #### F TI, FE #### [address] [address] Merchandise Clerk: Otoniel Ash MD #### TSH, LIPR, CP, GLYHGB, CDP #### [address] [place] [address] Merchandise Clerk: Eris Worthy MD T4 [Mass/Vol] 29.74 % Normal 22.5-37.0 [facility] Comment on above: Performed By: #### F TI, FE #### [address] [address] Merchandise Clerk: Otoniel Ash MD #### TSH, LIPR, CP, GLYHGB, CDP #### [address] [place] [id number] Merchandise Clerk: Eris Worthy MD T4 [Mass/Vol] 6.6 ug/dL Normal 4.5-10.9 [facility] Comment on above: Performed By: #### F TI, FE #### [address] [address] Merchandise Clerk: Otoniel Ash MD #### TSH, LIPR, CP, GLYHGB, CDP #### [address] [place] [address] Merchandise Clerk: MD Porfirio Clineon 10-08-2019 Iron [Mass/Vol] 73 ug/dL Normal 37-145 [facility] Comment on above: Performed By: #### F TI, FE #### [address] [address] Merchandise Clerk: Otoniel Ash MD #### TSH, LIPR, CP, GLYHGB, CDP #### [address] [place] [address] Merchandise Clerk: Eris Worthy MD T3 uptake and FTIon 10-08-19 Free Thyroxine Index 2 ug/dL 1.4 - 3.1 ug/dL [place] T4 [Mass/Vol] 29.74 % 22.5 - 37 % [place] T4, Total 6.6 ug/dL 4.5 - 10.9 ug/dL [place] CBC Auto Differentialon -04 19-2019 Basophils (Bld) [#/Vol] 0.07 10*3/uL [place] Basophils/100 WBC (Bld) 1 % 0 - 2 % [place] Differential Type NOT REPORTED [place] Eosinophils (Bld) [#/Vol] 0.06 10*3/uL [place] Eosinophils/100 WBC (Bld) 1 % 1 - 4 % [place] Erythrocyte distribution width (RBC) [Ratio] 14.5 % High 11.8 - 14.4 % [place] Hematocrit (Bld) [Volume fraction] 42.4 % 36.3 - 47.1 % [place] Hemoglobin (Bld) [Mass/Vol] 13.2 g/dL 11.9 - 15.1 g/dL [place] Immature granulocytes (Bld) [#/Vol] 10*3/uL [place] Immature granulocytes (Bld) [#/Vol] 0 % 0 [place] Interpretation and review of laboratory results Abnormal [place] Lymphocytes (Bld) [#/Vol] 1.87 10*3/uL [place] Lymphocytes/100 WBC (Bld) 33 % 24 - 43 % [place] MCH (RBC) [Entitic mass] 26.1 pg 25.2 - 33.5 pg [place] MCHC (RBC) [Mass/Vol] 31.1 g/dL 28.4 - 34.8 g/dL [place] MCV (RBC) [Entitic vol] 84.0 fL 82.6 - 102.9 fL [place] Monocytes (Bld) [#/Vol] 0.45 10*3/uL [place] Monocytes/100 WBC (Bld) 8 % 3 - 12 % [place] Platelet mean volume (Bld) [Entitic vol] 10.1 fL 8.1 - 13.5 fL [place] Platelets (Bld) [#/Vol] 270 10*3/uL [place] Platelets (Bld) [#/Vol] NOT REPORTED [place] RBC (Bld) [#/Vol] 5.05 10*6/uL 3.95 - 5.1 1 m/uL [place] RBC morphology finding Nom (Bld) NOT REPORTED [place] Segmented neutrophils/100 WBC (Bld) 57 % 36 - 65 % [place] Segs Absolute 3.17 [place] WBC (Bld) [#/Vol] 5.6 10*3/uL [place] WBC (Bld) [#/Vol] 0.0 10*3/uL 0.0 per 10 0 WBC [place] WBC Morphology NOT REPORTED [place], [place] CBC with Diffon 10-07-2019 Abs. Basophil 0.07 k/uL Normal 0.00-0.20 [facility] Comment on above: Performed By: #### F TI, FE #### [address] [id number] Merchandise Clerk: Otoniel Ash MD #### TSH, LIPR, CP, GLYHGB, CDP #### [address] [place] [address] Merchandise Clerk: Eris Worthy MD Abs.Imm.Granulocyte <0.03 Normal 0.00-0.30 [facility] Comment on above: Performed By: #### F TI, FE #### [address] [id number] Merchandise Clerk: Otoniel Ash MD #### TSH, LIPR, CP, GLYHGB, CDP #### Lab [address] [place] [address] [place] [address] Merchandise Clerk: Eris Worthy MD Abs.Neutrophil (Seg) 3.17 k/uL Normal 1.50-8.10 [facility] Comment on above: Performed By: #### F TI, FE #### [address] [address] Merchandise Clerk: Otoniel Ash MD #### TSH, LIPR, CP, GLYHGB, CDP #### [address] [place] [id number] Merchandise Clerk: Eris Worthy MD Basophils/100 WBC (Bld) 1 % Normal 0-2 [facility] Comment on above: Performed By: #### F TI, FE #### [place] [address] Merchandise Clerk: Otoniel Ash MD #### TSH, LIPR, CP, GLYHGB, CDP #### [address] [place] [id number] Merchandise Clerk: Eris Worthy MD Eosinophils (Bld) [#/Vol] 0.06 10*3/uL Normal 0.00-0.44 [facility] Comment on above: Performed By: #### F TI, FE #### [place] [address] Merchandise Clerk: Otoniel Ash MD #### TSH, LIPR, CP, GLYHGB, CDP #### [address] [place] [phone] Merchandise Clerk: Eris Worthy MD Eosinophils/100 WBC (Bld) 1 % Normal 1-4 [facility] Comment on above: Performed By: #### F TI, FE #### [place] [address] Merchandise Clerk: Otoniel Ash MD #### TSH, LIPR, CP, GLYHGB, CDP #### [address] [place] [id number] Merchandise Clerk: Eris Worthy MD Erythrocyte distribution width (RBC) [Ratio] 14.5 % High 11.8-14.4 [facility] Comment on above: Performed By: #### F TI, FE #### [address] [address] Merchandise Clerk: Otoniel Ash MD #### TSH, LIPR, CP, GLYHGB, CDP #### [address] [place] [id number] Merchandise Clerk: Eris Worthy MD Hematocrit (Bld) [Volume fraction] 42.4 % Normal 36.3-47.1 [facility] Comment on above: Performed By: #### F TI, FE #### [address] [id number] Merchandise Clerk: Otoniel Ash MD #### TSH, LIPR, CP, GLYHGB, CDP #### [address] [place] [id number] Merchandise Clerk: Eris Worthy MD Hemoglobin (Bld) [Mass/Vol] 13.2 g/dL Normal 11.9-15.1 [facility] Comment on above: Performed By: #### F TI, FE #### [address] [address] Merchandise Clerk: Ootniel Ash MD #### TSH, LIPR, CP, GLYHGB, CDP #### [address] [place] [phone] Merchandise Clerk: Eris Worthy MD Immature granulocytes (Bld) [#/Vol] 0 % Normal 0 [facility] Comment on above: Performed By: #### F TI, FE #### [address] [id number] Merchandise Clerk: Otoniel Ash MD #### TSH, LIPR, CP, GLYHGB, CDP #### [address] [place] [address] Merchandise Clerk: Eris Worthy MD Lymphocytes (Bld) [#/Vol] 1.87 10*3/uL Normal 1.10-3.70 [facility] Comment on above: Performed By: #### F TI, FE #### [address] [id number] Merchandise Clerk: Otoniel Ash MD #### TSH, LIPR, CP, GLYHGB, CDP #### [address] [place] [address] Merchandise Clerk: Eris Worthy MD Lymphocytes/100 WBC (Bld) 33 % Normal 24-43 [facility] Comment on above: Performed By: #### F TI, FE #### [address] [id number] Merchandise Clerk: Otoniel Ash MD #### TSH, LIPR, CP, GLYHGB, CDP #### [address] [place] [id number] Merchandise Clerk: Eris Worthy MD MCH (RBC) [Entitic mass] 26.1 pg Normal 25.2-33.5 [facility] Comment on above: Performed By: #### F TI, FE #### [address] [id number] Merchandise Clerk: Otoniel Ash MD #### TSH, LIPR, CP, GLYHGB, CDP #### [address] [place] [address] Merchandise Clerk: Eris Worthy MD MCHC (RBC) [Mass/Vol] 31.1 g/dL Normal 28.4-34.8 [facility] Comment on above: Performed By: #### F TI, FE #### [address] [id number] Merchandise Clerk: Otoniel Ash MD #### TSH, LIPR, CP, GLYHGB, CDP #### [address] [place] [id number] ( Merchandise Clerk: Eris Worthy MD MCV (RBC) [Entitic vol] 84.0 fL Normal 82.6-102.9 [facility] Comment on above: Performed By: #### F TI, FE #### [address] [address] Merchandise Clerk: Otoniel Ash MD #### TSH, LIPR, CP, GLYHGB, CDP #### [address] [place] [id number] ( Merchandise Clerk: Eris Worthy MD Monocytes (Bld) [#/Vol] 0.45 10*3/uL Normal 0.10-1.20 [facility] Comment on above: Performed By: #### F TI, FE #### [place] [address] Merchandise Clerk: Otoniel sAh MD #### TSH, LIPR, CP, GLYHGB, CDP #### [address] [place] [phone] Merchandise Clerk: Eris Worthy MD Monocytes/100 WBC (Bld) 8 % Normal 3-12 [facility] Comment on above: Performed By: #### F TI, FE #### [address] [address] Merchandise Clerk: Otoniel Ash MD #### TSH, LIPR, CP, GLYHGB, CDP #### [address] [place] [phone] Merchandise Clerk: Eris Worthy MD Neutrophil (Seg) 57 % Normal 36-65 [facility] Comment on above: Performed By: #### F TI, FE #### [address] [address] Merchandise Clerk: Otoniel Ash MD #### TSH, LIPR, CP, GLYHGB, CDP #### [address] [place] [address] Merchandise Clerk: Eris Worthy MD NRBC Automated 0.0 per [address] [facility] Comment on above: Performed By: #### F TI, FE #### [address] [id number] Merchandise Clerk: Otoniel Ash MD #### TSH, LIPR, CP, GLYHGB, CDP #### [address] [place] [phone] Merchandise Clerk: Eris Worthy MD Platelet mean volume (Bld) [Entitic vol] 10.1 fL Normal 8.1-13.5 [facility] Comment on above: Performed By: #### F TI, FE #### [place] [address] Merchandise Clerk: Otoniel Ash MD #### TSH, LIPR, CP, GLYHGB, CDP #### [address] [place] [phone] Merchandise Clerk: Eris Worthy MD Platelets (Bld) [#/Vol] 270 10*3/uL Normal 138-453 [facility] Comment on above: Performed By: #### F TI, FE #### [address] [id number] Merchandise Clerk: Otoniel Ash MD #### TSH, LIPR, CP, GLYHGB, CDP #### [address] [place] [phone] Merchandise Clerk: Eris Worthy MD RBC (Bld) [#/Vol] 5.05 10*6/uL Normal 3.95-5.11 [facility] Comment on above: Performed By: #### F TI, FE #### [address] [address] Merchandise Clerk: Otoniel Ash MD #### TSH, LIPR, CP, GLYHGB, CDP #### [address] [place] [phone] Merchandise Clerk: Eris Worthy MD WBC (Bld) [#/Vol] 5.6 10*3/uL Normal 3.5-11.3 [facility] Comment on above: Performed By: #### F TI, FE #### [address] [address] Merchandise Clerk: Otoniel Ash MD #### TSH, LIPR, CP, GLYHGB, CDP #### [address] [place] [phone] Merchandise Clerk: Eris Worthy MD Auto Diff Performed NOT REPORTED Normal [facility] Comment on above: Performed By: #### F TI, FE #### [address] [address] Merchandise Clerk: Otoniel Ash MD #### TSH, LIPR, CP, GLYHGB, CDP #### [address] [place] [phone] Merchandise Clerk: Eris Worthy MD Platelets (Bld) [#/Vol] NOT REPORTED Normal [facility] Comment on above: Performed By: #### F TI, FE #### [address] [address] Merchandise Clerk: Otoniel Ash MD #### TSH, LIPR, CP, GLYHGB, CDP #### [address] [place] [phone] Merchandise Clerk: Eris Worthy MD RBC morphology finding Nom (Bld) NOT REPORTED Normal [facility] Comment on above: Performed By: #### F TI, FE #### [address] [id number] Merchandise Clerk: Otoniel Ash MD #### TSH, LIPR, CP, GLYHGB, CDP #### [address] [place] [address] Merchandise Clerk: Eris Worthy MD WBC Morphology NOT REPORTED Normal [facility] Comment on above: Performed By: #### F TI, FE #### [address] [address] Merchandise Clerk: Otoniel Ash MD #### TSH, LIPR, CP, GLYHGB, CDP #### [address] [place] [address] Merchandise Clerk: Eris Worthy MD Comp Metabolic Profon 2019 (cont.) Normal [facility] Comment on above: Result Comment: Aver age GFR for 60-69 years old: 85 mL/min/1.73sq m Chronic Kidney Disease: <60 mL/min/1.73sq m Kidney failure: <15 mL/min/1.73sq m eGFR calculated using average adult body mass. Additional eGFR calculator available at: http://www.[employer]/multiple_crcl_2012.htm Performed By: #### F TI, FE #### [address] [id number] Merchandise Clerk: Otoniel Ash MD #### TSH, LIPR, CP, GLYHGB, CDP #### [address] [place] [address] Merchandise Clerk: Eris Worthy MD Albumin [Mass/Vol] 4.5 g/dL Normal 3.5-5.2 [facility] Comment on above: Performed By: #### F TI, FE #### [address] [address] Merchandise Clerk: Otoniel Ash MD #### TSH, LIPR, CP, GLYHGB, CDP #### Lab [address] [place], [place] [id number] Merchandise Clerk: Eris Worthy MD Albumin/Globulin [Mass ratio] 1.4 {ratio} Normal 1.0-2.5 [facility] Comment on above: Performed By: #### F TI, FE #### [address] [id number] Merchandise Clerk: Otoniel Ash MD #### TSH, LIPR, CP, GLYHGB, CDP #### Lab [address] [place] [address] Merchandise Clerk: Eris Worthy MD Alkaline Phos 94 U/L Normal 35-104 [facility] Comment on above: Performed By: #### F TI, FE #### [address] [id number] Merchandise Clerk: Otoniel Ash MD #### TSH, LIPR, CP, GLYHGB, CDP #### Lab [address] [place] [address] Merchandise Clerk: Eris Worthy MD ALT [Catalytic activity/Vol] 10 U/L Normal 5-33 [facility] Comment on above: Performed By: #### F TI, FE #### [address] [id number] Merchandise Clerk: Otoniel Ash MD #### TSH, LIPR, CP, GLYHGB, CDP #### Lab [address] [place], [place] 0757[address] Merchandise Clerk: Eris Worthy MD Anion gap [Moles/Vol] 12 mmol/L Normal 9-17 [facility] Comment on above: Performed By: #### F TI, FE #### [address] [id number] Merchandise Clerk: Otoniel Ash MD #### TSH, LIPR, CP, GLYHGB, CDP #### Lab [address] [place], [place] [id number] Merchandise Clerk: Eris Worthy MD AST [Catalytic activity/Vol] 40 U/L High <32 [facility] Comment on above: Performed By: #### F TI, FE #### [address] [id number] Merchandise Clerk: Otoniel Ash MD #### TSH, LIPR, CP, GLYHGB, CDP #### Lab [address] [place] [id number] Merchandise Clerk: Eris Worthy MD Bilirubin Ql (U) 0.27 mg/dL Low 0.3-1.2 [facility] Comment on above: Performed By: #### F TI, FE #### [address] [id number] Merchandise Clerk: Otoniel Ash MD #### TSH, LIPR, CP, GLYHGB, CDP #### [address] [place] [phone] Merchandise Clerk: Eris Worthy MD BUN/CRE Ratio 22 High 9-20 [facility] Comment on above: Performed By: #### F TI, FE #### [address] [id number] Merchandise Clerk: Otoniel Ash MD #### TSH, LIPR, CP, GLYHGB, CDP #### Lab [address] [place] [address] [place] [id number] Merchandise Clerk: Eris Worthy MD Calcium [Mass/Vol] 10.0 mg/dL Normal 8.6-10.4 [facility] Comment on above: Performed By: #### F TI, FE #### [address] [id number] Merchandise Clerk: Otoniel Ash MD #### TSH, LIPR, CP, GLYHGB, CDP #### Lab [address] [place] [address] Merchandise Clerk: Eris Worthy MD Chloride [Moles/Vol] 105 mmol/L Normal 98-107 [facility] Comment on above: Performed By: #### F TI, FE #### [address] [id number] Merchandise Clerk: Otoniel Ash MD #### TSH, LIPR, CP, GLYHGB, CDP #### Lab [address] [place] [address] Merchandise Clerk: Eris Worthy MD CO2 [Moles/Vol] 21 mmol/L Normal 20-31 [facility] Comment on above: Performed By: #### F TI, FE #### [address] [id number] Merchandise Clerk: Otoniel Ash MD #### TSH, LIPR, CP, GLYHGB, CDP #### [facility] [address] [place] [address] Merchandise Clerk: Eris Worthy MD Creatinine [Mass/Vol] 0.79 mg/dL Normal 0.50-0.90 [facility] Comment on above: Performed By: #### F TI, FE #### [address] [address] Merchandise Clerk: Otoniel Ash MD #### TSH, LIPR, CP, GLYHGB, CDP #### [facility] [address] [place] [address] Merchandise Clerk: Eris Worthy MD GFR, Amer >60 Normal >60 [facility] Comment on above: Performed By: #### F TI, FE #### [address] [id number] Merchandise Clerk: Otoniel Ash MD #### TSH, LIPR, CP, GLYHGB, CDP #### [facility] [address] [place] [address] Merchandise Clerk: Eris Worthy MD GFR,non Amer >60 Normal >60 [facility] Comment on above: Performed By: #### F TI, FE #### [address] [id number] Merchandise Clerk: Otoniel Ash MD #### TSH, LIPR, CP, GLYHGB, CDP #### Lab [address] [place] [address] Merchandise Clerk: Eris Worthy MD Glucose [Mass/Vol] 99 mg/dL Normal 70-99 [facility] Comment on above: Performed By: #### F TI, FE #### [address] [address] Merchandise Clerk: Otoniel Ash MD #### TSH, LIPR, CP, GLYHGB, CDP #### [address] [place] [address] Merchandise Clerk: Eris Worthy MD Potassium [Moles/Vol] 4.1 mmol/L Normal 3.7-5.3 [facility] Comment on above: Performed By: #### F TI, FE #### [address] [address] Merchandise Clerk: Otoniel Ash MD #### TSH, LIPR, CP, GLYHGB, CDP #### [address] [place] [address] Merchandise Clerk: Eris Worthy MD Protein [Mass/Vol] 7.7 g/dL Normal 6.4-8.3 [facility] Comment on above: Performed By: #### F TI, FE #### [address] [id number] Merchandise Clerk: Otoniel Ash MD #### TSH, LIPR, CP, GLYHGB, CDP #### Lab [address] [place] [address] Merchandise Clerk: Eris Worthy MD Sodium [Moles/Vol] 138 mmol/L Normal 135-144 [facility] Comment on above: Performed By: #### F TI, FE #### [address] [id number] Merchandise Clerk: Otoniel Ash MD #### TSH, LIPR, CP, GLYHGB, CDP #### [facility] [address] [place] [address] Merchandise Clerk: Eris Worthy MD Staging: Normal [facility] Comment on above: Result Comment: Stag e 1: Some kidney damage normal GFR Stage 2: Mild kidney damage GFR 60-89 Stage 3: Moderate kidney damage GFR 30-59 Stage 4: Severe kidney damage GFR 15-29 Stage 5: Severe kidney damage GFR <15 ESRD - chronic treatment by dialysis or transplant Performed By: #### F TI, FE #### [address] [address] Merchandise Clerk: Otoniel Ash MD #### TSH, LIPR, CP, GLYHGB, CDP #### [address] [place] [address] Merchandise Clerk: Eris Worthy MD Urea nitrogen [Mass/Vol] 17 mg/dL Normal 8-23 [facility] Comment on above: Performed By: #### F TI, FE #### [address] [address] Merchandise Clerk: Otoniel Ash MD #### TSH, LIPR, CP, GLYHGB, CDP #### [facility] [address] [place] [address] Merchandise Clerk: Eris Worthy MD [facility] Metabolic [facility] 10-07-2019 Albumin [Mass/Vol] 4.5 g/dL 3.5 - 5.2 g/dL [place] Albumin/Globulin [Mass ratio] 1.4 {ratio} [place] ALP [Catalytic activity/Vol] 94 U/L 35 - 104 U/L [place] ALT [Catalytic activity/Vol] 10 U/L 5 - 33 U/L [place] Anion gap [Moles/Vol] 12 mmol/L 9 - 17 mmol/L [place] AST [Catalytic activity/Vol] 40 U/L High <32 [place] Bilirubin Ql (U) 0.27 mg/dL Low 0.3 - 1.2 mg/dL [place] Bun/Cre Ratio 22 High [place], [place] Calcium [Mass/Vol] 10.0 mg/dL 8.6 - 10. 4 mg/dL [place] Chloride [Moles/Vol] 105 mmol/L 98 - 107 mmol/L [place] CO2 [Moles/Vol] 21 mmol/L 20 - 31 mmol/L [place] Creatinine [Mass/Vol] 0.79 mg/dL 0.5 - 0.9 mg/dL [place] GFR >60 >60 mL/min [place] GFR Non- >60 >60 mL/min [place] Glucose [Mass/Vol] 99 mg/dL 70 - 99 mg/dL [place] Potassium [Moles/Vol] 4.1 mmol/L 3.7 - 5.3 mmol/L [place] Protein [Mass/Vol] 7.7 g/dL 6.4 - 8.3 g/dL [place] Sodium [Moles/Vol] 138 mmol/L 135 - 144 mmol/L [place] Urea nitrogen [Mass/Vol] 17 mg/dL 8 - 23 mg/dL [place] Hemoglobin A1Con 10-07-2019 HbA1c (Bld) [Mass fraction] 5.3 % Normal 4.8-5.9 [facility] Comment on above: Performed By: #### F TI, FE #### [facility] [address] [place], [place] [id number] Merchandise Clerk: Otoniel Ash MD #### TSH, LIPR, CP, GLYHGB, CDP #### Lab [address] [place], [place] [id number] Merchandise Clerk: Eris Worthy MD HbA1c (Bld) [Mass fraction] 105 mg/dL Normal [facility] Comment on above: Result Comment: The ADA and AACC recommend providing the estimated average glucose result to permit better patient understanding of their HBA1c result. Performed By: #### F TI, FE #### [facility] [address] [place], [place] [id number] Merchandise Clerk: Otoniel Ash MD #### TSH, LIPR, CP, GLYHGB, CDP #### Lab [address] [place] [address] [place] [address] Merchandise Clerk: Eris Worthy MD Glucose [Mass/Vol] 105 mg/dL [place] Comment on above: The ADA and AACC rec ommend providing the estimated average glucose result to permit better patient understanding of their HBA1c result. HbA1c (Bld) [Mass fraction] 5.3 % 4.8 - 5.9 % [place] Ironon 10-07-2019 Iron [Mass/Vol] 73 ug/dL 37 - 145 ug/dL [place] Lipid Panelon 10-07-2019 Cholesterol [Mass/Vol] 229 mg/dL High <200 [place] Comment on above: Cholesterol Guidelines: <200 Desirable 200-240 Borderline >240 Undesirable Cholesterol in HDL [Mass/Vol] 67 mg/dL >40 [place] Comment on above: HDL Guidelines: <40 Undesirable 40-59 Borderline >59 Desirable Cholesterol in LDL [Mass/Vol] 127 mg/dL 0 - 130 mg/dL [place] Comment on above: LDL Guidelines: <100 Desirable 100-129 Near to/above Desirable 130-159 Borderline >159 Undesirable Direct (measured) LDL and calculated LDL are not interchangeable tests. Cholesterol in VLDL [Mass/Vol] NOT REPORTED High 1 - 30 mg/dL [place] Cholesterol.total/C holesterol in HDL [Mass ratio] 3.4 {ratio} <5 [place] Triglyceride [Mass/Vol] 175 mg/dL High <150 [place] Comment on above: Triglyceride Guidelines: <150 Desirable 150-199 Borderline 200-499 High >499 Very high Based on AHA Guidelines for fasting triglyceride, December 2011. Lipid Profileon 10-07-2019 Cholesterol [Mass/Vol] 229 mg/dL High <200 [facility] Comment on above: Result Comment: Cholesterol Guidelines: <200 Desirable 200-240 Borderline >240 Undesirable Performed By: #### F TI, FE #### [address] [address] Merchandise Clerk: Otoniel Ash MD #### TSH, LIPR, CP, GLYHGB, CDP #### Lab [address] [place] [address] [place] [address] Merchandise Clerk: Eris Worthy MD Cholesterol in HDL [Mass/Vol] 67 mg/dL Normal >40 [facility] Comment on above: Result Comment: HDL Guidelines: <40 Undesirable 40-59 Borderline >59 Desirable Performed By: #### F TI, FE #### [address] [address] Merchandise Clerk: Otoniel Ash MD #### TSH, LIPR, CP, GLYHGB, CDP #### Lab [address] [place] [address] [place] [address] Merchandise Clerk: Eris Worthy MD Cholesterol in LDL [Mass/Vol] 127 mg/dL Normal 0-130 [facility] Comment on above: Result Comment: LDL Guidelines: <100 Desirable 100-129 Near to/above Desirable 130-159 Borderline >159 Undesirable Direct (measured) LDL and calculated LDL are not interchangeable tests. Performed By: #### F TI, FE #### [address] [id number] Merchandise Clerk: Otoniel Ash MD #### TSH, LIPR, CP, GLYHGB, CDP #### Lab [address] [place], [place] [id number] Merchandise Clerk: Eris Worthy MD Cholesterol.total/C holesterol in HDL [Mass ratio] 3.4 {ratio} Normal <5 [facility] Comment on above: Performed By: #### F TI, FE #### [address] [address] Merchandise Clerk: Otoniel Ash MD #### TSH, LIPR, CP, GLYHGB, CDP #### Lab [address] [place] [address] [place] [address] Merchandise Clerk: Eris Worthy MD Triglyceride [Mass/Vol] 175 mg/dL High <150 [facility] Comment on above: Result Comment: Triglyceride Guidelines: <150 Desirable 150-199 Borderline 200-499 High >499 Very high Based on AHA Guidelines for fasting triglyceride, December 2011. Performed By: #### F TI, FE #### [address] [address] Merchandise Clerk: Otoniel Ash MD #### TSH, LIPR, CP, GLYHGB, CDP #### [address] [place] [address] Merchandise Clerk: Eris Worthy MD Cholesterol in VLDL [Mass/Vol] NOT REPORTED Normal 04-16 [facility] Comment on above: Performed By: #### F TI, FE #### [address] [address] Merchandise Clerk: Otoniel Ash MD #### TSH, LIPR, CP, GLYHGB, CDP #### [address] [place] [address] Merchandise Clerk: Eris Worthy MD Metabolic Panelon 10-07-2019 GFR/1.73 sq M predicted among non-blacks MDRD (S/P/Bld) [Vol rate/Area] [facility] [place], [place] Comment on above: Stage 1: Some kidney [...] body mass. Additional eGFR calculator available at: http://www.Red Stamp/multiple_crcl_2012.htm Otheron 10-07-2019 Interpretation and review of laboratory results Abnormal [place] TSH without Reflexon 020 TSH Qn 1.12 m[IU]/L [place], [place] Thyroid Stim. Horm.on 2019 TSH Qn 1.12 m[IU]/L Normal 0.30-5.00 [facility] Comment on above: Performed By: #### F TI, FE #### [facility] [address] [place], [place] [id number] Merchandise Clerk: Otoniel Ash MD #### TSH, LIPR, CP, GLYHGB, CDP #### Lab [address] [place] [address] Merchandise Clerk: Eris Worthy MD Operative Reporton 8 Operative Report MR#: [id number] [facility] Pt. Name: Xena Ewing Room #: 0C Discharge Date: Birthdate: 1955 OPERATIVE REPORTDATE OF SURGERY: 03/17/2018SURGEON: Bart Holcomb M.D.DYE RANGE TENDER: Carlton Galicia M.D.PREOPERATIVE DIAGNOSIS: Right recurrent de [...] Dict: 03/17/2018/10:00 A/EMETERIO Andinoate Trans: 03/17/2018 11:55 [id number] cc: Anamika Valle M.D. [address] [place] [address] Normal [facility] POC GLUCOSE LABon 03-17-2018 Glucose mass conc 89 mg/dL Normal 70-100 [facility] Comment on above: Performed By: #### 8 5499 ####[facility] Vital Signs Date Time Vital Sign Value Performing Clinician Morena sahu 10-23-2022 11:13-0400 Body height 165.1 cm Claire Morales MD Work Phone: [facility] 10-23-2022 11:13-0400 Body weight 73.07 kg Claire Morales MD Work Phone: [facility] 10-23-2022 11:13-0400 Diastolic blood pressure 71 mm[Hg] Claire Morales MD Work Phone: [facility] 10-23-2022 11:13-0400 Heart rate 77 /min Claire Morales MD Work Phone: [facility] 10-23-2022 11:13-0400 Systolic blood pressure 125 mm[Hg] Claire Morales MD Work Phone: [facility] Encounters Encounter Date Encounter Type Care Provider Facility Start: 02-05-2024 ambulatory Rubén MANUEL Facility : [facility] Start: 12-27-2023 End: 12-27-2023 Patient encounter procedure MD Anamika Valle Work Phone: [facility] Work Phone: Start: 12-27-2023 End: 12-27-2023 ambulatory MD Anamika Valle Work Phone: [facility] Work Phone: Start: 12-17-2023 End: 12-17-2023 Bamboo flowsheet Lucy Briseno Felter ROOF BOLTER OPERATOR-SOCIAL WORK PROFESSOR Work Phone: [facility] Start: 12-17-2023 End: 12-17-2023 Bamboo flowsheet Lucy Briseno Felter ROOF BOLTER OPERATOR-SOCIAL WORK PROFESSOR Work Phone: [facility] Start: 12-17-2023 End: 12-17-2023 Office outpatient new 20 minutes Lucy Durbiner ROOF BOLTER OPERATOR-SOCIAL WORK PROFESSOR Work Phone: [facility] Comment on above: Other nonthrombocyto penic purpura (CMS/HCC) (Primary Dx); Actinic keratosis Start: 12-17-2023 End: 12-17-2023 ambulatory LUCY ESCOBAR Not Available Start: 07-31-2023 End: 07-31-2023 ambulatory MONIE S LIEBENTHAL Not Available Start: 07-03-2023 End: 07-03-2023 ambulatory MONIE S LIEBENTHAL Not Available Start: 05-29-2023 End: 05-29-2023 ambulatory DESI CURRY Not Available Start: 05-09-2023 End: 05-09-2023 ambulatory MONIE S LIEBENTHAL Not Available Start: 03-28-2023 End: 03-28-2023 ambulatory MONIE S LIEBENTHAL Not Available Start: 01-30-2023 End: 01-30-2023 ambulatory MONIE S LIEBENTHAL Not Available Start: 12-24-2022 End: 12-24-2022 ambulatory MD Anamika Valle Work Phone: [facility] Work Phone: Start: 12-24-2022 End: 12-24-2022 Patient encounter procedure MD Anamika Valle Work Phone: [facility] Work Phone: Start: 10-23-2022 End: 10-24-2022 ambulatory ANAMIKA VALLE Facility:[facility] Start: 10-23-2022 End: 10-23-2022 Patient encounter procedure Claire Morales MD Work Phone: General Surgery Comment on above: Ventral hernia witho ut obstruction or gangrene (Primary Dx) Start: 04-19-2022 End: 04-19-2022 ambulatory DESTINI DOOLEY Facility:[facility] Start: 01-05-2022 End: 01-06-[address] ANAMIKA VALLE Facility:[facility] Start: 12-21-2021 End: 12-21-2021 ambulatory MD Anamika Valle Work Phone: [facility] Work Phone: Start: 12-21-2021 End: 12-21-2021 Patient encounter procedure MD Anamika Valle Work Phone: [facility] Start: 11-09-2021 End: 11-10-[address] ANAMIKA VALLE Facility:[facility] Start: 08-31-2021 End: 08-31-[address] ANAMIKA VALLE Facility:[facility] Start: 06-29-2021 End: 06-29-[address] ANAMIKA VALLE Facility:[facility] Start: 06-21-2021 End: 06-22-[address] ANAMIKA VALLE Facility:[facility] Start: 06-08-2021 End: 06-09-[address] ANAMIKA VALLE Facility:[facility] Start: 10-13-2019 End: 10-14-2019 Patient encounter procedure [facility] Start: 10-13-2019 End: 10-13-2019 Subsequent hospital visit by physician Anamika Valle [facility] Start: 10-07-2019 End: 10-08-2019 Patient encounter procedure [facility] Start: 10-07-2019 End: 10-07-2019 Subsequent hospital visit by physician [facility] Lab Drawing Room [facility] Laboratory Comment on above: Arrived Start: 03-17-2018 End: 03-18-2018 Patient encounter procedure GIOVANI SEWELLAPHA Facility:[facility] Start: 02-14-2018 End: 02-15-2018 Patient encounter procedure DEFAULT PHYSICIAN Facility:[facility] Procedures Date Procedure Procedure Detail Performing Clinician Start: 12-27-2023 Screening mammograph y of bilateral breasts MD Anamika Valle Work Phone: Start: 12-17-2023 CRYOTHERAPY SKIN LESION Lucy Escobar ROOF BOLTER OPERATOR-SOCIAL WORK PROFESSOR Work Phone: Start: 12-24-2022 Screening mammograph y of bilateral breasts MD Anamika Valle Work Phone: Start: 04-19-2022 Mammography Lucy alvarez ROOF BOLTER OPERATOR-SOCIAL WORK PROFESSOR Work Phone: Start: 12-21-2021 Screening mammograph y [...] of thyroid stimulating hormone tsh Anamika M Griffiny Work Phone: Start: 10-07-2019 Blood count complete [...] - Td) DTaP/Tdap/Td vaccine (2 - Td) [facility] JOSE ALBERTO Start: 10-06-2024 Lipid panel Lipid screen [place] Start: 06-01-2024 End: 06-01-2024 Patient encounter procedure 06/01/2024 11:00 AM EDT Office Visit [facility] [address] [place] [address] Deis Curry DO [address] [place] [address] [facility] Start: 12-17-2023 End: 12-17-2023 Patient encounter procedure 12/17/2023 11:05 AM EDT Office Visit [facility] [address] [place] [address] Lucy Escobar, ROOF BOLTER OPERATOR-SOCIAL WORK PROFESSOR [address] [place] [address] Arrived [facility] Comment on above: Arrived Start: 11-17-2023 Influenza vaccination Influenza Vacc ine (#1) [facility] Start: 04-19-2023 Screening for malign ant neoplasm of breast Mammogram [facility] Start: 11-16-2022 Influenza vaccination INFLUENZA (#1) [facility] Start: 04-21-2022 COVID-19 VACCINE (5 - Pfizer series) COVID-19 VACCINE (5 - Pfizer series) [facility] Start: 03-18-2022 ADVANCE DIRECTIVE DISCUSSION ADVANCE DIRECTIVE DISCUSSION [facility] Start: 03-18-2022 DEPRESSION ASSESSMENT DEPRESSION ASS ESSMENT [facility] Start: 2021 BONE DENSITY BONE DENSITY [facility] Start: 2021 Pneumococcal Vaccine : 65+ Years (2 of 2 - PCV) Pneumococcal Vaccine: 65+ Years (2 of 2 - PCV) [facility] Start: 11-17-2019 Influenza vaccination Flu vaccine (# 1) [place] Start: 2006 Influenza vaccination LUNG CANCER [facility] Start: 2006 Screening for malign ant neoplasm of breast Breast cancer screen [place], [place] Start: 2006 Screening for malign ant neoplasm of colon Colon cancer screen colonoscopy [place] Start: 2006 Shingles Vaccine (1 of 2) Shingles Vaccine (1 of 2) [place] Start: 2006 SHINGRIX VACCINE (1 of 2) SHINGRIX VACCINE (1 of 2) [facility] Start: 2001 COLOGUARD (FIT-DNA) COLOGUARD (FIT-D NA) [facility] Start: 2001 Colonoscopy COLONOSCOPY [facility] Start: 2001 COLORECTAL CANCER SCREENING COLORECTAL CANCER SCREENING [facility] Start: [address] COLONOGRAPHY [facility] Start: 2001 DIABETES SCREEN DIABETES SCREEN [facility] Start: 2001 FECAL OCCULT BLOOD FECAL OCCULT BLOO D [facility] Start: 2001 LIPID SCREEN LIPID SCREEN [facility] Start: 2001 SIGMOIDOSCOPY SIGMOIDOSCOPY [facility] Start: 1996 Lipid panel Lipid screen [place], [place] Start: 1996 Mammography MAMMOGRAM [facility] Start: 1977 Screening for malign ant neoplasm of cervix Cervical cancer screen [place], [place] Start: 12-12-1975 Urine microalbumin profile DTAP,TDAP,TD (1 - Tdap) [facility] Start: 1974 HEPATITIS C SCREENING HEPATITIS C [facility] Start: 1974 HIV SCREENING HIV SCREENING [facility] Start: 12-12-1971 HIV screening HIV screen [place], [place] Start: 1962 PNEUMOCOCCAL: 65+ (1 - PCV) PNEUMOCOCCAL: 65+ (1 - PCV) [facility] Start: 1956 Hepatitis C screening Hepatitis C [place], [place] Start: 1955 Screening for malign ant neoplasm of colon [facility] Immunizations Immunization Date Immunization Notes Care Provider Angie stacy 06-05-2018 influenza virus vaccine, unspecified formulation Lucy Escobar ROOF BOLTER OPERATOR-SOCIAL WORK PROFESSOR Work Phone: [facility] 06-01-2018 tetanus toxoid, redu tu diphtheria toxoid, and acellular pertussis vaccine, adsorbed Mth Room [place], [place] Payers Date Payer Category Payer Self-pay [id number] 2023 Medicare [id number] 2022 Medicare [id number] 2019 Unknown [id number] 2019 Unknown [employer] M [employer] CHUCK - EXCHANGE [id number] 2019-Present [phone] [address] [place] [address] [id number] 1959 Medicare [id number] 1959 Medicare [id number] 1959 Private Health Insurance [id number] 1955 Unknown [id number] 2.16.840.1.523183.3.579.2.6 47 1956 Unknown [id number] 2.16.840.1.356250.3.579.2.6 47 1956 Unknown [id number] 2.16.840.1.446349.3.579.2.1 73 1956 Unknown [id number] 2.16.840.1.120126.3.579.2.1 73 1956 Unknown [id number] 2.16.840.1.978408.3.579.2.5 93 1956 Unknown [id number] 2.16.840.1.906766.3.579.2.5 93 1956 Unknown [id number] 2.16.840.1.136394.3.579.2.5 93 1956 Unknown [id number] 2.16.840.1.211096.3.579.2.5 93 1956 Unknown [id number] 2.16.840.1.673794.3.579.2.5 93 1956 Unknown [id number] 2.16.840.1.780581.3.579.2.5 93 1956 Unknown [id number] 2.16.840.1.784709.3.579.2.5 93 1956 Unknown [id number] 2.16.840.1.735420.3.579.2.1 259 1956 Unknown [id number] 2.16.840.1.841778.3.579.2.1 259 1956 Unknown [id number] 2.16.840.1.940798.3.579.2.1 259 1956 Unknown [id number] 2.16.840.1.911720.3.579.2.1 259 1956 Unknown [id number] 2.16.840.1.737063.3.579.2.1 259 1956 Unknown [id number] 2.16.840.1.623363.3.579.2.1 259 1956 Unknown [id number] 2.16.840.1.048886.3.579.2.1 259 1956 Unknown [id number] 2.16.840.1.142500.3.579.2.7 27 Medicare Medicare [id number] Unknown [id number] Unknown Unknown HCAP/HFA/FAP Active [id number] Unknown [id number] 2.16.840.1.458336.3.579.2.5 31 Social History Date Type Detail Facility Start: 05-31-2018 [facility] [place] Start: 05-31-2018 Alcohol intake Ex-drinker (finding) [place] Start: 1955 Sex Assigned At Not on file [place], [place] Exposure to SARS-CoV -2 (event) Not sure [place] Start: 1955 Sex Assigned At Female F [facility] Start: 10-23-2022 [facility] History of tobacco use Cigarette Smoker [facility] Start: 10-23-2022 End: 12-17-2023 Cigarettes smoked current (pack per day) - Reported 1 [facility] Start: 10-23-2022 Tobacco use and exposure User of smokeless tobacco [facility] Start: 10-23-2022 End: 12-17-2023 Alcohol intake Lifetime non-drinker (finding) [facility] Start: 10-23-2022 End: 12-17-2023 Tobacco use panel [facility] Start: 10-23-2022 Tobacco [facility] Start: 09-21-2022 [facility] Never smoked tobacco [facility] Start: 04-27-2023 Alcohol Comment Caffine intake : 2-3 cups per day, coffee; tea [facility] History of Present illness Narrative 12-17-2023 uLcy Escobar, ROOF BOLTER OPERATOR-SOCIAL WORK PROFESSOR - 12/17/2023 11:05 AM EDT Note Date [...] limited to risks of scarring, darker or kilnman pigmentary changes, recurrence, incomplete removal and infection. [...] any new/changing lesions documented in this encounter [facility] Progress note 10-23-2022 Note Date & Type Note Facility 10-23-2022 Note HNO ID: [id number] Author: Claire Morales MD Service: ? Author [...] Bariatric Surgery cc: Referring provider Anamika Valle [facility] [address] Medical Decision Making: Problems: Low: Stable chronic illness Data: Independent interpretation of test from other physician/QHCP Medical Decision Making Level: 3 - Low [facility] History of Present illness Narrative 10-23-2022 Claire [...] of shared medical record or letter. HPI: Xean Ewing is a 66 year old female [...] and Bariatric Surgery cc: Referring provider Anamika M Tori [address] [facility] [address] Medical Decision Making: Problems: Low: Stable chronic illness Data: Independent interpretation of test from other physician/QHCP Medical Decision Making Level: 3 - Low documented in this encounter [facility] Clinical Note 08-31-2021 Note Date & Type Note Facility 08-31-2021 Note OPERATIVE NOTE OPERATION DATE: 08/31/2021 PREOPERATIVE DIAGNOSIS: Acute appendicitis. POSTOPERATIVE DIAGNOSIS: Acute appendicitis. PROCEDURE PERFORMED: Laparoscopic appendectomy. SURGEON: Eris Rehman M.D. DYE RANGE TENDER: PINA Corona ANESTHESIA: General, 0.5% Marcaine for [...] taken to the PACU in fair condition. [facility] Signed and Approved by: DR ERIS REHMAN . 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 Advance Directives and Living Will Power of Gunnery/Ordnance Officer Advance Directive Response Recorded Date/ Time Advance Directives No June 06 018 3:52pm Chief Complaint and Reason for Visit Chief Complaint Screening Additional Source Comments INFORMATION SOURCE (unrecogn ized section and content) DATE CREATED AUTHOR 03/21/2018 [facility] DATE CREATED AUTHOR AUTHOR'S ORGANIZ ATION 10/14/2019 [facility] DATE CREATED AUTHOR AUTHOR'S ORGANIZ ATION 04/27/2022 [facility] DATE CREATED AUTHOR AUTHOR'S ORGANIZ ATION 10/27/2022 [facility] DATE CREATED AUTHOR AUTHOR'S ORGANIZ ATION 12/18/2023 [facility] EPIC DATE CREATED AUTHOR AUTHOR'S ORGANIZ ATION 01/03/2024 [facility] DATE CREATED AUTHOR AUTHOR'S ORGANIZ ATION 01/14/[address] [facility] Care Teams (unrecognized sec tion and content) Team Status: Active Member Role Status Dates Anamika Valle MD Primary Care Provider Active Team Status: Inactive Member Role Status Dates Anamika Valle MD Primary Care Provider Active Referral Self Attending Provider Active Illuminating Engineer Relationship Specialty Start Date End Date Anamika Valle MD PCP - General 10/24/04 Anamika Valle MD [address] [place] [address] Referring Family Medicine 10/05/22 Illuminating Engineer Relationship Specialty Start Date End Date Anamika Valle MD [address] [place] [address] PCP - General Family Medicine 09/21/22 Illuminating Engineer Relationship Specialty Start Date End Date Anamika Valle MD [address] [place] [address] PCP - General Family Medicine 09/21/22 Team Status: Inactive Member Role Status Dates Anamika Valle MD Primary Care Provide r, Referring Provider Active Start: December 27, 2023 End: December 27, 2023 Referral Self Attending Provider Active Start: O ct2023 End: December 27, 2023 Goals (unrecognized section [...] or prosecute any alcohol or drug abuse patient.[facility] Reason for Visit (unrecogniz ed section [...] BE BASED ON THE PRIMARY CLINICAL RECORDS. [facility] provides no warranty or guarantee of the accuracy or completeness of information in this document.
--- NOTE | 2024-01-19 06:46 | XR_ITS ---
The [address] [address] Patient Name: GILLIAN HERMOSILLO MRN: [id number] date: 1955 Sex: F Assigned Patient Location: ER Current Patient Location: ER Accession/Order Number: [id number] Exam Date: 01/19/2024 06:49 Report Date: 01/19/2024 07:08 At the request of: MICHELLE PEREIRA Procedure: XR knee LT 4V PROCEDURE: XR knee LT 4V HISTORY: pain COMPARISON: XR knee bilateral 422 24 mm in FINDINGS: BONES:Small periarticular degenerative osteophytes. No fracture, dislocation, or significant joint space narrowing. SOFT TISSUES:No visible soft tissue swelling. EFFUSION:Small joint effusion. OTHER: Negative. XR/XR knee LT 4V IMPRESSION: 1. Small joint effusion and mild degenerative joint disease. Electronically authenticated by: DANNA HANNA Date: 01/19/2024 07:08
[2024-01-19] MEDS: KETOROLAC TROMETHAMINE 30 MG/ML VIAL 15 MG IM (07:34)
--- NOTE | 2024-01-19 08:48 | ED.LOWEXI1 ---
HPI HPI - Extremity Injury (Lower) General Chief Complaint: Extremity Injury, Lower Stated Complaint: LE PAIN Time Seen by Provider: 01/19/24 06:44 Source: patient Mode of arrival: Wheelchair Limitations: no limitations History of Present Illness HPI Narrative: The patient is coming to us with a left knee pain and inability to put weight on her knee since yesterday night she mentioned that she was in a wedding and apparently the pain started while she was dancing, and then she could not stand up on her feet she did not have any fall or injury other than that Related Data Home Medications ?Medication ?Instructions ?Recorded ?Confirmed amitriptyline 50 mg tablet mg 01/19/24 doxepin 10 mg capsule mg 01/19/24 latanoprost 0.005 % eye drops drp ophthalmic (eye) 01/19/24 tizanidine 4 mg tablet mg 01/19/24 Previous Rx's ?Medication ?Instructions ?Recorded diclofenac sodium 50 mg 50 mg PO Q12H PRN pain #14 tabs 01/19/24 tablet,delayed release Allergies Allergy/AdvReac Type Severity Reaction Status Date / Time codeine Allergy Severe Unknown Verified 01/19/24 06:43 Sulfa (Sulfonamide Allergy Unknown Verified 01/19/24 06:43 Antibiotics) Opioid HPI Opioid Management Most Recent Pain and Opioid Data: Last Pain Scale 10 01/19/24 07:34 01/19/24 Last ED Pain Assessment 01/19/24 06:51 Last MAR Pain Assessment 01/19/24 07:34 Review of Systems ROS Status of ROS 10 or more systems reviewed and unremarkable except as noted in history and below [facility] Medical History (Updated 01/19/24 @ 07:44 by Malu Duke MD) Appendicitis ?K37 - Unspecified appendicitis (ICD-10) Social History Little interest or pleasure in doing things: not at all Feeling down, depressed, or hopeless: not at all Exam Narrative Exam Narrative: Nurses notes and vital signs reviewed and patient is not hypoxic. Left knee exam: The patient have a mild effusion of the knee with no redness no hotness no tenderness on palpation but the patient have pain with flexion of the knee with full flexion and extension preserved General: Well-appearing and in no apparent distress. Skin: Warm, dry, no pallor noted. No rash. Head: Normocephalic, atraumatic. Neck: Supple, non-tender. Eye: Pupils are equal, round and EOMI. No scleral icterus. Ears, Nose, Mouth, and Throat: TM are clear, no nasal mucosal hypertrophy. Oral mucosa is moist, no posterior oropharynx erythema, uvula is mid-line Cardiovascular: Regular Rate and Rhythm without murmur, gallop or rub. Respiratory: No accessory muscle use or respiratory distress. Lungs are clear to auscultation, no wheezing, rales or rhonchi Chest Wall: no tenderness Back: No midline thoracic or lumbar vertebral tenderness. No CVA tenderness Musculoskeletal: normal ROM, no calf or popliteal tenderness, no lower extremity edema/swelling GI: Abdomen is soft, non-distended. Normal bowel sounds. No masses appreciated. No tenderness to palpation. No rebound, guarding, or rigidity noted. Neurological: A&O x4. No cranial nerve dysfunction observed. No truncal ataxia. Moves all extremities. Sensation intact. Psychiatric: Cooperative and interactive. Normal mood and affect. Constitutional Vital Signs, click to edit/add: Last Vital Signs Temp 97.5 F L 01/19/24 06:35 Pulse 52 L 01/19/24 06:35 Resp 18 01/19/24 06:35 BP 118/82 01/19/24 06:35 Pulse Ox 99 01/19/24 06:35 O2 Del Method Room Air 01/19/24 06:35 Course Vital Signs Vital signs: Vital Signs Temperature 97.5 F L 01/19/24 06:35 Pulse Rate 52 L 01/19/24 06:35 Respiratory Rate 18 01/19/24 06:35 Blood Pressure 118/82 01/19/24 06:35 Pulse Oximetry 99 01/19/24 06:35 Oxygen Delivery Method Room Air 01/19/24 06:35 Temperature 97.5 F L 01/19/24 06:35 Pulse Rate 52 L 01/19/24 06:35 Respiratory Rate 18 01/19/24 06:35 Blood Pressure 118/82 01/19/24 06:35 Pulse Oximetry 99 01/19/24 06:35 Oxygen Delivery Method Room Air 01/19/24 06:35 MDM - Extremity Injury (Lower) MDM Narrative Medical decision making narrative: X-ray of the patient left knee shows mild effusion The patient had a knee immobilizer applied she was provided Toradol for pain She was discharged with nonweightbearing using walker as she did not want the crutches She mentioned that she have a walker at home and right now she will just follow-up with orthopedic as outpatient she was discharged with Voltaren pills as well with elevation rest and follow-up with orthopedic as the plan The patient is to follow up with primary care physician in next 2-3 days or to return to the emergency department should any of the signs or symptoms worsen or new symptoms develop. The patient agrees with the following Diagnosis and Treatment plan and the patient will be discharged home. Discharge Plan Discharge Chief Complaint: Extremity Injury, Lower Clinical Impression: Injury of knee, ligament Patient Disposition: Home, Self-Care Time of Disposition Decision: 07:43 Condition: Good Prescriptions / Home Meds: New diclofenac sodium 50 mg tablet,delayed release (DR/EC) 50 mg PO Q12H PRN (Reason: pain) Qty: 14 0RF No Action latanoprost 0.005 % drops OPHTHALMIC (EYE) tizanidine 4 mg tablet doxepin 10 mg capsule amitriptyline 50 mg tablet Print Language: Setswana Instructions: Knee Sprain (DC) Referrals: Kenan Valle MD [Primary Care Provider] - 1 week Jeronimo Romero MD [Physician] - 1 week Discharge Date/Time: 01/19/24 07:50
== END 2024-01-19 07:50 | disposition home or self-care (01) ==
PROVIDERS: Emergency Provider Student in an Organized Health Care Education/Training Program; PCP Family Medicine
DX: S89.82XA Other specified injuries of left lower leg, initial encounter (principal); X50.9XXA Other and unspecified overexertion or strenuous movements or postures, initial encounter
CPT/HCPCS: 73564; 96372; 99284; J1885

== ENCOUNTER 2024-01-21 07:38 | Outpatient (RCR) | payer MEDICARE, SELFPAY | END 2024-02-06 08:50 | disposition home or self-care (01) | LOC: HEMC 07:38 | PROVIDERS: PCP Family Medicine; Visit Provider Internal Medicine Hematology & Oncology | DX: R23.3 Spontaneous ecchymoses (principal); F17.290 Nicotine dependence, other tobacco product, uncomplicated; D72.819 Decreased white blood cell count, unspecified; R79.89 Other specified abnormal findings of blood chemistry; Z90.710 Acquired absence of both cervix and uterus | CPT/HCPCS: G0463 ==

== ENCOUNTER 2024-02-10 08:54 | Outpatient (OUT) | payer MEDICARE, SELFPAY ==
--- NOTE | 2024-02-10 09:01 | US_ITS ---
The [address] [address] Patient Name: GILLIAN HERMOSILLO MRN: [id number] date: 1955 Sex: F Assigned Patient Location: US Current Patient Location: Accession/Order Number: [id number] Exam Date: 02/10/2024 09:10 Report Date: 02/11/2024 06:42 At the request of: GEORGES BURNS Procedure: US right upper quadrant EXAMINATION: US right upper quadrant HISTORY: Spontaneous Ecchymoses COMPARISON: CT abdomen pelvis 08/31/2021 TECHNIQUE: Transabdominal evaluation of the right upper quadrant. FINDINGS: LIVER: Normal size and echotexture. Color Doppler demonstrates patent hepatic veins. PORTAL VEIN: Duplex Doppler demonstrates normal hepatopetal flow pattern with flow velocity averaging 25 cm/s. GALLBLADDER: No visible gallstones, wall thickening, or pericholecystic free fluid. Negative sonographic Burr's sign. BILIARY: No abnormal dilation or stones. Common bile duct diameter is within normal limits. PANCREAS: No visible mass, abnormal atrophy, or duct dilation. KIDNEY: No hydronephrosis. No visible mass or stones. Size: 9.3 x 4.5 x 4.0 cm US/US right upper quadrant IMPRESSION: 1. No abnormal or suspicious findings to account for patient's symptoms. Electronically authenticated by: DANNA HANNA Date: 02/11/2024 06:42
--- OUTSIDE RECORDS SUMMARY | 2024-02-10 09:15 | XMS_ITS | CCD ---
Author Organization [facility] Care Team Providers Care External Grinder Name Role Phone PHYSICIAN, DEFAULT Unavailable Unavailable PHYSICIAN, DEFAULT Unavailable Unavailable JANINE VALLELAS Unavailable Unavailable JI, ABDULAZIM Unavailable Unavailable JI, ABDULAZIM Unavailable Unavailable JANINE VALLELAS Unavailable Unavailable ANAMIKA VALLE Unavailable Unavailable [place] Unavailable Unavailable JI, ABDULAZIM Unavailable Unavailable [place] Unavailable Unavailable BOUCHRA HARPER Unavailable Unavailable ANAMIKA [...] ANAMIKA VALLE Primary Care Unavailable WIERICKA, DR ELISABETH Irwin Admitting Unavailable WIECEK, DR ELISABETH Irwin Attending Unavailable WIWOODYK, DR ELISABETH Irwin Consulting Unavailable Corrine, DR Decker Consulting Unavailable DEXTER SAUNDERS Consulting Unavailable KELLY LEWIS Consulting Unavailable DANNA HERNANDES Consulting Unavailable DR ANAMIKA VALLE Admitting Unavailable DR ANAMIKA VALLE Attending Unavailable DR ANAMIKA VALLE Primary Care Unavailable DR ANAMIKA VALLE Consulting Unavailable DR Danna Castle Consulting Unavailable DR ANAMIKA VALLE Admitting Unavailable MAKAYLA, DR WILLSON Attending Unavailable DR ANAMIKA VALLE Primary Care Unavailable DR ANAMIKA VALLE Consulting Unavailable DR ENIO MOHAN V Consulting Unavailable DR ANAMIKA VALLE Admitting Unavailable DR ANAMIKA VALLE Attending Unavailable MAKAYLA, DR WILLSON Primary Care [...] Referring Provider Self, Referral Attending Provider Unavailable Anamika Valle Referring Unavailable Anamika Valle Primary Care Unavailable Self, Referral Attending Unavailable Self, Referral Admitting Unavailable Anamika Valle Primary Care Physician GEORGES BURNS Attending Unavailable GRANT GEORGES Admitting Unavailable Rubén MANUEL Attending Unavailable Anamika Valle Referring Unavailable GEORGES BURNS Attending Unavailable GRANT GEORGES Admitting Unavailable Allergies Allergy Classification Reported Allergen(s) Allergy Type Date of Onset Reaction(s) Facility (12 sources) Codeine; Translations: [CODEINE] Drug Allergy 11-30-19 05 Nausea Only, Gastrointestinal irritation (disorder) [facility] Repository (1 source) Etodolac Drug Allergy 03-21-19 17 [facility] Repository (1 source) no latex allergy [Other] Propensity to adverse reactions 11-30-19 05 [facility] (4 sources) OTHER; Translations: [OTHER] Propensity to adverse reactions (disorder) 11-30-19 05 [facility] Repository (3 sources) Etodolac Allergy to substance 07-07-20 23 [facility] Healthcare (3 sources) Sulfonamides (Antibiotic) Drug Allergy 07-14-19 22 Hives [facility] Healthcare (1 source) Unable to Assess Drug allergy (disorder) 10-07-19 19 [facility] Repository (3 sources) Ciprofloxacin; Translations: [ciprofloxacin] Drug Allergy Patient reported problems (finding) [facility] [place] Medications Current Medications Medication Drug Class(es) Dates Sig (Normalized) Sig (Original) amitriptyline hydrochloride 50 mg oral tablet (6 sources) Tricyclic Antidepressant Start: 01-27-2024 take 1 tablet by mouth once daily at bedtime amitriptyline 50 mg Tab 50 mg = 1 tab(s), Oral, Once a day (at bedtime), Refills(s) 0 Start Date: 01/27/24 Status: Ordered Start: 09-20-2022 amitriptyline (Elavil) 50 MG tablet 09/20/2022 Active Comment on above: Take 50 mg by mouth every evening. Biotin (2 sources) Start: biotin Refills(s) 0 Start Date: 01/27/24 Status: Ordered cephalexin 500 mg oral capsule (2 sources) Cephalosporin Antibacterial Start: take 1 capsule by mouth three times daily cephALEXin (KEFLEX) 500 MG capsule Take 1 capsule by mouth 3 times daily 21 capsule 0 06/01/2018 Active cyclobenzaprine hydrochloride 10 mg oral tablet (4 sources) Muscle Relaxant Start: 023 take 1 tablet by mouth in the [...] daily. doxepin hydrochloride 10 mg oral capsule (6 sources) Tricyclic Antidepressant Start: take 1 capsule by mouth once daily doxepin 10 mg Cap 10 mg = 1 cap(s), Oral, Daily, Refills(s) 0 Start Date: 01/27/24 Status: Ordered Start: 08-21-2022 take 1 capsule by mo uth at bedtime as needed doxepin (SINEquan) 10 MG capsule TAKE 1 TO 2 CAPSULES BY MOUTH AT BEDTIME NEEDED FOR ANXIETY 08/21/2022 Active Comment on above: TAKE 1 TO 2 CAPSULES BY MOUTH AT BEDTIME NEEDED FOR ANXIETY famotidine 40 mg oral tablet (6 sources) Histamine-2 Receptor Antagonist Start: 01-27-2024 take 1 tablet by mouth twice daily Pepcid 40 mg Tab 40 mg = 1 tab(s), Oral, BID, Refills(s) 0 Start Date: 01/27/24 Status: Ordered Start: 09-14-2022 take 1 tablet by diego th twice daily, then take 1 tablet by mouth at bedtime famotidine (Pepcid) 40 MG tablet TAKE 1 TABLET BY MOUTH TWICE DAILY with one dose being AT BEDTIME 09/14/2022 Active Comment on above: TAKE 1 TABLET BY DIEGO TH TWICE DAILY with one dose being AT BEDTIME latanoprost 0.05 mg/ml ophthalmic suspension (2 sources) Prostaglandin Analog Start: 01-27-20 take 1 drop(s) into the eye(s) once daily in the evening latanoprost 0.005% ophthalmic emulsion 1 drop(s), Eye-Both, qPM, Refill(s) 0 Start Date: 01/27/24 Status: Ordered meloxicam 7.5 mg oral tablet (4 sources) Nonsteroidal Anti-inflammatory Drug Start: 10-18-19 meloxicam (Mobic) 7.5 MG tablet 1 (one) time each day at the same time 10/17/2022 Active Comment on above: Take 1 tablet by diego th every afternoon. Multi Vitamins oral tablet (2 sources) Start: 01-27-20 take 1 tablet by mouth once daily Multi Vitamins oral tablet 1 tab(s), Oral, Daily, Refill(s) 0 Start Date: 01/27/24 Status: Ordered pantoprazole 40 mg delayed release oral tablet (6 sources) Proton Pump Inhibitor Start: 01-27-20 take 1 tablet by mouth once daily Protonix 40 mg Tab-DR 40 mg = 1 tab(s), Oral, Daily, Refills(s) 0 Start Date: 01/27/24 Status: Ordered Start: 07-15-2022 take 1 tablet by diego th in the morning pantoprazole (ProtoNix) 40 MG EC tablet Take 40 mg by mouth in the morning. 07/15/2022 Active Comment on above: Take 1 [...] EMPTY STOMACH) tiZANidine 4 mg oral tablet (5 sources) Central alpha-2 Adrenergic Agonist Start: 01-27-2024 take 2 tablets by mouth at bedtime tiZANidine 4 mg Tab 8 mg = 2 tab(s), Oral, Bedtime, Refills(s) 0 Start Date: 01/27/24 Status: Ordered Start: 01-21-2023 take 2 tablets by mo ut at bedtime tiZANidine (Zanaflex) 4 MG tablet [...] diego th every 12 hours. estrogens, conjugated (detention) 0.625 mg oral tablet (1 source) Estrogen [...] purpura; Translations: [Other nonthrombocytopenic purpura] 12-17-2023 Episodic Esophageal disorders (2 sources) Gastroesophageal reflux disease 01-27-2024 Chronic Immunizations and screening for infectious disease (1 source) Encounter for screening for human papillomavirus (HPV); Translations: [ENC SCREENING HUMAN PAPILLOMAVIRUS] Onset: 3 Episodic Occlusion or stenosis of precerebral arteries (4 sources) Occlusion and stenosis of bilateral carotid arteries; Translations: [OCCLUSION AND STENOS ANDREAS CAROTID ART] Onset: 2 Chronic Other bone disease and musculoskeletal deformities (2 sources) Osteopenia 01-27-2024 Episodic Other circulatory disease (2 sources) Raynaud's phenomenon 01-27-2024 Chronic Other connective tissue disease (4 sources) Radial styloid tenosynovitis [de Quervain]; Translations: [RADIAL STYLOID TENOSYNOVITIS [DE QUERVAIN]] Onset: 8 Episodic Other diseases of kidney and ureters (2 sources) Cyst of kidney 01-27-2024 Episodic Other ear and sense organ disorders (1 source) Conductive hearing loss; Translations: [Conductive hearing loss, unspecified] Onset: 6 10-05-2022 Chronic Other ear and sense organ disorders (2 sources) Bilateral hearing loss Onset: 2 01-27-2024 Chronic Other gastrointestinal disorders (1 source) Abnormal feces; Translations: [Other fecal abnormalities] Onset: 4 Episodic Other gastrointestinal disorders (4 sources) Occult blood in stools 01-27-2024 Episodic Other nervous system disorders (2 sources) Complex regional pain syndrome type I 01-27-2024 Chronic Other screening for suspected conditions (not [...] HISTORY OF NICOTINE DEPENDENCE] Onset: 8 Episodic Spondylosis; intervertebral disc disorders; other back problems (4 sources) Cervical disc disorder; Translations: [Disorder of lumbar disc] 01-27-2024 Chronic Thyroid disorders (10 sources) Nontoxic single thyroid nodule; Translations: [Nontoxic multinodular goiter] Onset: 2 Chronic Unclassified (2 sources) Unknown / UNK(Unknown) Onset: 8 Varicose veins of lower extremity (2 sources) Varicose veins of lower extremity 01-27-2024 Episodic Past or Other Problems Problem Classification Problem [...] Test Name Value Interpretation Reference Range Facility COAGULATIONOrdered By: Jeffrey Nelson on 02-06-2024 Platelet function (closure time) collagen+EPINEPHrine induced (Bld) [Time] 96 s Normal 70 - 138 second(s) [facility] Comment on above: Interpretive Data: N ormal ASA vWD Glanzmann s Thrombasthenia ------- ------ ------- COL/EPI Normal Abnormal Abnormal Abnormal Col/ADP Normal Normal Abnormal Abnormal Plt Function Assayon Platelet function (closure time) collagen+EPINEPHrine induced (Bld) [Time] 96 second(s) Normal 70-138 [facility] Comment on above: Result Comment: Norm al ASA vWD Glanzmann???s Thrombasthenia ------- ------ ------- COL/EPI Normal Abnormal Abnormal Abnormal Col/ADP Normal Normal Abnormal Abnormal Performed By: #### 1 [id number] #### [facility] [address] [place] [address] Reference Laboratory Testing Ordered By: Paulette Frye on 02-06-2024 Test Code 469803 [id number] Invalid Interpretation Code [facility] Test Name von Willebrand Invalid Interpretation Code [facility] Ambulatory Visit Summaryon 1 04-06-2023 Ambulatory Visit Summary Ambulatory Visit Summary XENA EWING :1955 Visit Date:02/05/2024 Ambulatory Visit Instructions Your Diagnosis Positive fecal occult blood test Your Care Team Attending Physician - MAR CLARKE, Rubén Holman Primary Care Physician - Makayla CLARKE, Anamika Referring Physician - Anamika Valle MD This Is Your Medications List Contact prescribing physician if questions or concerns amitriptyline (amitriptyline 50 mg Tab) biotin doxepin (doxepin 10 mg Cap) famotidine (Pepcid 40 mg Tab) latanoprost ophthalmic (latanoprost 0.005% ophthalmic emulsion) multivitamin (Multi Vitamins oral tablet) pantoprazole (Protonix 40 mg Tab-DR) tizanidine (tiZANidine 4 mg Tab) Procedures Performed Appendectomy, Carpal tunnel release, Colonoscopy, Re-release of carpal tunnel, SHEILA BSO - Total abdominal hysterectomy and bilateral salpingo-oophorectomy. Discharge Vitals Heart Rate (Peripheral) 72 Respiratory Rate 16 Blood Pressure 132/84 Height 165 cm Height 65 in Weight 60.8 kg Weight 134.041 lb BMI 22.33 Medications What How Much When Instructions Unchanged amitriptyline (amitriptyline 50 mg Tab) 1 Tablets By Mouth Once a day (at bedtime) Contact prescribing physician if questions or concerns Unchanged biotin Contact prescribing physician if questions or concerns Unchanged doxepin (doxepin 10 mg Cap) 1 Capsules By Mouth Every day Contact prescribing physician if questions or concerns Unchanged famotidine (Pepcid 40 mg Tab) 1 Tablets By Mouth 2 times a day Contact prescribing physician if questions or concerns Unchanged latanoprost ophthalmic (latanoprost 0.005% ophthalmic emulsion) 1 Drops Both eyes Once a day (in the evening) Contact prescribing physician if questions or concerns Unchanged multivitamin (Multi Vitamins oral tablet) 1 Tablets By Mouth Every day Contact prescribing physician if questions or concerns Unchanged pantoprazole (Protonix 40 mg Tab-DR) 1 Tablets By Mouth Every day Contact prescribing physician if questions or concerns Unchanged tizanidine (tiZANidine 4 mg Tab) 2 Tablets By Mouth At bedtime Contact prescribing physician if questions or concerns Allergies Cipro (Patient reported problems) codeine (Gastrointestinal upset) Problems Ongoing - Any problem that you are currently receiving treatment for. Bilateral hearing loss Cervical disc disorder Complex regional pain syndrome type I Gastroesophageal reflux disease Lumbar disc disease Multinodular goiter Occult blood positive stool Osteopenia Positive fecal occult blood test Raynaud's phenomenon Renal cyst, left Varicose vein of leg Patient Survey You may receive a survey via text or e-mail asking about your office visit. Please share your experience with us by completing your survey. We appreciate your feedback and thank you for choosing us for your care. Normal [facility] Provider Letteron 01-10-2024 Provider Letter Provider Letter January 10, 2024 XENA EWING [address] [place] [address] : 1955 Dear Ms. Ewing, We have been trying to reach you with no success regarding a referral from Dr Valle. It is important that you return our call upon receiving this letter. Also, at the time of your call, please provide us with your current information. Thank you for your prompt attention to this matter. Sincerely, [facility] General Surgery [phone] Normal [facility] MM screening mammo BI w/CADo n 12-27-2023 MM screening mammo BI w/CAD [facility] Main [place] [address] [place] [address] Mammography Report Signed Patient: Xena Ewing MR#: [id number] : 1955 Acct:[id number] Age/Sex: 68 / F ADM Date: 12/27/23 Loc: [place] Room: Type: [facility] Attending Dr: Referral Self Copies to: Anamika [...] mammogram. Impression dictated by: Blake Schmidt Jr., D.OIrene12/27/2023 1:07 PM Dictation Location: [facility] Transcribed By: [facility] 12/27/23 1307 Dictated By: Blake Schmidt Jr, DO 12/27/23 1304 Signed By: 12/27/23 1307 Normal [facility] No Panel Informationon 12-16 [facility] 10-23-2022 CNOV Office Visit (GENBMI ) XENA EWING ([id number]) 1955 F [facility] Date Time Provider Department 10/23/22 11:30 AM [...] [address] [facility] [address] Medical Decision Making: Problems: Low: Stable chronic illness Data: Independent interpretation of test from other physician/QHCP Medical Decision Making Level: 3 - Low Referring Provider: ANAMIKA VALLE [[id number]] Allergies As of Date: 10/23/2022 Noted Allergy [...] ANXIETY - (more content not included)... Normal [facility] PAP ACOG PANEL 2: 30 to 65on 04-26-2022 . . Normal [facility] Comment on above: Result Comment: Perf ormed at: WB Performed By: #### 4 [id number] #### [facility] [address] [address] [address] Kayy Virgen Age Gdln ACOG Testing 30-65 Normal [facility] Comment on above: Performed By: #### 4 [id number] #### [facility] [address] [address] [address] Kayy Virgen DIAGNOSIS: Comment Normal [facility] Comment on above: Result Comment: UNSA TISFACTORY FOR EVALUATION. Performed at: WB Performed By: #### 4 [id number] #### [facility] [address] [address] [address] Kayy Virgen HPV Aptima Negative Normal Negative [facility] Comment on above: Result Comment: This nucleic acid amplification test detects fourteen high-risk HPV types (16,18,31,33,35,39,45,51,52,56,58,59,66,68) without differentiation. Performed at: =G Performed By: #### 4 [id number] #### [facility] [address] [address] [address] Kayy Virgen HPV Genotype Reflex Comment Normal [facility] Comment on above: Result Comment: Crit eria not met, HPV Genotype not performed. Performed at: WB Performed By: #### 4 [id number] #### [facility] [address] [place] [address] Dr. Kayy Virgen Methodology: Comment [facility] Comment on above: Result Comment: This liquid based ThinPrep(R) pap test was screened with the use of an image guided system. Performed at: WB Performed By: #### 4 [id number] #### [facility] [address] [place] [address] Dr. Kayy Virgen Note: Comment Normal [facility] Comment on above: Result [...] Performed at: WB Performed By: #### 4 [id number] #### [facility] [address] [place] [address] Dr. Kayy Virgen Performed by: Comment Normal [facility] Comment on above: Result Comment: Arturo Peters, Pick Up And Delivery Driver (ASCP) Performed at: KWCYT Performed By: #### 4 [id number] #### [facility] [address] [place] [address] Dr. Kayy Virgen QC reviewed by: Comment Normal [facility] Comment on above: Result Comment: Pepe Cordova, Supervisory Pick Up And Delivery Driver (ASCP) Performed at: WB Performed By: #### 4 [id number] #### [facility] [address] [place] [address] Dr. Kayy Virgen Recommendation: Comment Normal [facility] Comment on above: Result Comment: Sugg est follow up as clinically appropriate. Performed at: WB Performed By: #### 4 [id number] #### [facility] [address] [place] [address] Dr. Kayy Virgen Specimen adequacy: Comment Normal [facility] Comment on above: Result Comment: Spec imen processed and examined but unsatisfactory for evaluation of epithelial abnormality because of insufficient cellularity. Performed at: WB Performed By: #### 4 [id number] #### [facility] [address] [place], [place] [address] Dr. Kayy Virgen US THYROIDon 01-05-2022 US [...] TR 4 nodule, previously biopsied TI-RADS: The [employer] TI-RADS committee's white paper recommendations for thyroid lesions classified as TR3 (mildly suspicious) are listed below: > 1.5 cm. Follow-up ultrasound in 1, 3, and 5 years. > 2.5 cm. FNA. J. Am Anais Radiol 2017;14:587-595. Electronically authenticated by: ENIO MOHAN Date: 2022-01-05 15:25 Normal [facility] T4, T3U, FTI LABCORPon 11-10 Free Thyroxine Index 2.0 Normal 1.2-4.9 [facility] Comment on above: Performed By: #### T HYLC ####[facility] [address] [address]DrIrene Virgen T3 Uptake 26 % Normal 24-39 [facility] Comment on above: Performed By: #### T HYLC ####[facility] [address] [place], [place] [address]CfIrene Virgen T4 [Mass/Vol] 7.5 ug/dL Normal 4.5-12.0 The [facility] Comment on above: Performed By: #### T HYLC ####[facility] [address] [id number]. Kayy Virgen CBC AUTO DIFFon 11-09-2021 BASO # 0.1 103/ul Normal 0.0-0.1 [facility] Comment on above: Performed By: #### C BC ####[facility] [address] [address]Dr. Kayy Virgen Basophils/100 WBC (Bld) 2.1 % Critically high 0.2-2.0 [facility] Comment on above: Performed By: #### C BC ####[facility] [address] [place], [place] [address]Dr. Kayy Virgen EO # 0.2 103/ul Normal 0.0-0.7 [facility] Comment on above: Performed By: #### C BC ####[facility] [address] [place], [place] [address]Dr. Kayy Virgen Eosinophils/100 WBC (Bld) 5.1 % Normal 0.9-7.0 [facility] Comment on above: Performed By: #### C BC ####[facility] [address] [place], [place] [address]Dr. Kayy Virgen Erythrocyte distribution width (RBC) [Ratio] 14.6 % Normal 11.0-15.0 [facility] Comment on above: Performed By: #### C BC ####[facility] [address] [place], [place] [address]Dr. Kayy Virgen Hematocrit (Bld) [Volume fraction] 38.5 % Normal 36.0-48.0 [facility] Comment on above: Performed By: #### C BC ####[facility] [address] [place], [place] [address]Dr. Kayy Virgen Hemoglobin (Bld) [Mass/Vol] 12.4 g/dL Normal 12.0-16.0 [facility] Comment on above: Performed By: #### C BC ####[facility] [address] [place], [place] [address]Dr. Kayy Virgen IG # 0.01 10e3/ul Normal 0.00-0.03 [facility] Comment on above: Performed By: #### C BC ####[facility] [address] [place], [place] [address]Dr. Kayy Virgen IG % 0.2 % Normal 0.0-0.5 [facility] Comment on above: Performed By: #### C BC ####[facility] [address] [address]DrIrene Virgen LYMPH # 1.5 103/ul Normal 1.2-3.8 [facility] Comment on above: Performed By: #### C BC ####[facility] [address] [address]Dr. Kayy Virgen Lymphocytes/100 WBC (Bld) 33.7 % Normal 20.5-60.0 [facility] Comment on above: Performed By: #### C BC ####[facility] [address] [place], [place] [address]DrIrene Virgen MANUAL DIFF REQ NO Normal [facility] Comment on above: Performed By: #### C BC ####[facility] [address] [address]DrIrene Virgen MCH (RBC) [Entitic mass] 26.7 pg Normal 26.7-34.0 [facility] Comment on above: Performed By: #### C BC ####[facility] [address] [place], [place] [address]DrIrene Virgen MCHC (RBC) [Mass/Vol] 32.2 g/dL Normal 29.9-35.2 [facility] Comment on above: Performed By: #### C BC ####[facility] [address] [place], [place] [address]DrIrene Virgen MCV (RBC) [Entitic vol] 82.8 fL Normal 81.0-99.0 [facility] Comment on above: Performed By: #### C BC ####[facility] [address] [place], [place] [address]DrIrene Virgen MONO # 0.5 103/ul Normal 0.3-0.8 [facility] Comment on above: Performed By: #### C BC ####[facility] [address] [place], [place] [address]DrIrene Virgen Monocytes/100 WBC (Bld) 11.9 % Normal 1.7-12.0 [facility] Comment on above: Performed By: #### C BC ####[facility] [address] [address]Dr. Kayy Virgen NEUT # 2.0 103/ul Normal 1.4-6.5 [facility] Comment on above: Performed By: #### C BC ####[facility] [address] [address]Dr. Kayy Virgen Neutrophils/100 WBC (Bld) 47.0 % Normal 43.0-75.0 [facility] Comment on above: Performed By: #### C BC ####[facility] [address] [address]Dr. Kayy Virgen Platelet mean volume (Bld) [Entitic vol] 9.7 fL Normal 9.5-13.5 [facility] Comment on above: Performed By: #### C BC ####[facility] [address] [address]Dr. Kayy Virgen PLT 269 103/ul Normal 150-450 [facility] Comment on above: Performed By: #### C BC ####[facility] [address] [address]Dr. Kayy Virgen RBC 4.65 106/ul Normal 4.20-5.40 [facility] Comment on above: Performed By: #### C BC ####[facility] [address] [address]Dr. Kayy Virgen WBC 4.3 103/ul Normal 4.0-11.0 [facility] Comment on above: Performed By: #### C BC ####[facility] [address] [address]Dr. Kayy Virgen GLYCOHEMOGLOBIN A1Con 2021 ADA RECOMMENDATION SEE BELOW Normal [facility] Comment on above: Result Comment: ADA RECOMMENDED LIMIT 4.0 - 6.0 ADA THERAPEUTIC TARGET < 7.0 ACTION SUGGESTED > 7.0 Performed By: #### A 1C #### [facility] [address] [address] [address] Kayy Virgen Glucose [Mass/Vol] 117 mg/dL Normal [facility] Comment on above: Performed By: #### A 1C #### [facility] [address] [place] [address] Dr. Kayy Virgen HbA1c (Bld) [Mass fraction] 5.7 % Normal 4.5-6.2 [facility] Comment on above: Performed By: #### A 1C #### [facility] [address] [place] [address] Dr. Kayy Virgen IRONon 11-09-2021 Iron [Mass/Vol] 100.0 ug/dL Normal 50.0-170.0 [facility] Comment on above: Performed By: #### I STEPHANI #### [facility] [address] [place] [address] Dr. Kayy Virgen PROF 14(COMP METB)on Albumin [Mass/Vol] 4.0 g/dL Normal 3.4-5.0 [facility] Comment on above: Performed By: #### C MP, TSH #### [facility] [address] [place] [address] Dr. Kayy Virgen Albumin/Globulin [Mass ratio] 1.1 {ratio} Normal [facility] Comment on above: Performed By: #### C MP, TSH #### [facility] [address] [place] [address] Dr. Kayy Virgen ALP [Catalytic activity/Vol] 109 U/L Normal 46-116 [facility] Comment on above: Performed By: #### C MP, TSH #### [facility] [address] [place] [address] Dr. Kayy Virgen ALT [Catalytic activity/Vol] 26 U/L Normal 14-59 [facility] Comment on above: Performed By: #### C MP, TSH #### [facility] [address] [place] [address] Dr. Kayy Virgen Anion gap [Moles/Vol] 11.2 mmol/L Normal [facility] Comment on above: Performed By: #### C MP, TSH #### [facility] [address] [address] [address] Kayy Virgen AST [Catalytic activity/Vol] 58 U/L Critically high 15-37 [facility] Comment on above: Performed By: #### C MP, TSH #### [facility] [address] [address] [address] Kayy Virgen Bilirubin [Mass/Vol] 0.4 mg/dL Normal 0.2-1.0 [facility] Comment on above: Performed By: #### C MP, TSH #### [facility] [address] [address] [address] Kayy Virgen Calcium [Mass/Vol] 9.8 mg/dL Normal 8.5-10.1 [facility] Comment on above: Performed By: #### C MP, TSH #### [facility] [address] [place] [address] Dr. Kayy Virgen Chloride [Moles/Vol] 103 mmol/L Normal 98-107 [facility] Comment on above: Performed By: #### C MP, TSH #### [facility] [address] [address] [address] Kayy Virgen CO2 [Moles/Vol] 28.2 mmol/L Normal 21.0-32.0 [facility] Comment on above: Performed By: #### C MP, TSH #### [facility] [address] [place] [address] Dr. Kayy Virgen Creatinine [Mass/Vol] 0.98 mg/dL Normal 0.55-1.02 [facility] Comment on above: Performed By: #### C MP, TSH #### [facility] [address] [place] [address] Dr. Kayy Virgen EGFR-AF HUNGARIAN >60 Normal >=60 [facility] Comment on above: Performed By: #### C MP, TSH #### [facility] [address] [place] [address] Dr. Kayy Virgen EGFR-NON AF HUNGARIAN 57 mL/min/1.73m2 Critically low >=60 [facility] Comment on above: Performed By: #### C MP, TSH #### [facility] [address] [address] [address] Kayy Virgen Globulin (S) [Mass/Vol] 3.8 g/dL Normal [facility] Comment on above: Performed By: #### C MP, TSH #### [facility] [address] [address] [address] Kayy Virgen Glucose [Mass/Vol] 102 mg/dL Normal 74-106 [facility] Comment on above: Performed By: #### C MP, TSH #### [facility] [address] [address] [address] Kayy Virgen Potassium [Moles/Vol] 4.4 mmol/L Normal 3.5-5.1 [facility] Comment on above: Performed By: #### C MP, TSH #### [facility] [address] [place] [address] Dr. Kayy Virgen Protein [Mass/Vol] 7.8 g/dL Normal 6.4-8.2 [facility] Comment on above: Performed By: #### C MP, TSH #### [facility] [address] [place] [address] Dr. Kayy Virgen Sodium [Moles/Vol] 138 mmol/L Normal 136-145 [facility] Comment on above: Performed By: #### C MP, TSH #### [facility] [address] [place] [address] Dr. Kayy Virgen Urea nitrogen [Mass/Vol] 22.0 mg/dL Critically high 7.0-18.0 [facility] Comment on above: Performed By: #### C MP, TSH #### [facility] [address] [place] [address] Dr. Kayy Virgen Urea nitrogen/Creatinine [Mass ratio] 22.4 mg/mg Normal [facility] Comment on above: Performed By: #### C MP, TSH #### [facility] [address] [place] [address] Dr. Kayy Virgen TSHon 11-09-2021 TSH 1.200 uIU/mL Normal 0.358-3.740 [facility] Comment on above: Performed By: #### C MP, TSH #### [facility] [address] [place], [place] [address] Dr. Kayy Virgen AMYLASEon 08-31-2021 Amylase [Catalytic activity/Vol] 34 U/L Normal 25-115 [facility] Comment on above: Performed By: #### A MY, CMP, LIPA ####[facility] [address] [id number] Virgen CBC AUTO DIFFon 08-31-2021 BASO # 0.1 103/ul Normal 0.0-0.1 [facility] Comment on above: Performed By: #### C BC ####[facility] [address] [address]DrIrene Virgen Basophils/100 WBC (Bld) 0.8 % Normal 0.2-2.0 [facility] Comment on above: Performed By: #### C BC ####[facility] [address] [place], [place] [address]Dr. Kayy Virgen EO # 0.0 103/ul Normal 0.0-0.7 [facility] Comment on above: Performed By: #### C BC ####[facility] [address] [place], [place] [address]Dr. Kayy Virgen Eosinophils/100 WBC (Bld) 0.6 % Critically low 0.9-7.0 [facility] Comment on above: Performed By: #### C BC ####[facility] [address] [place], [place] [address]DrIrene Virgen Erythrocyte distribution width (RBC) [Ratio] 13.9 % Normal 11.0-15.0 [facility] Comment on above: Performed By: #### C BC ####[facility] [address] [place], [place] [address]DrIrene Virgen Hematocrit (Bld) [Volume fraction] 37.7 % Normal 36.0-48.0 [facility] Comment on above: Performed By: #### C BC ####[facility] [address] [place], [place] [address]DrIrene Virgen Hemoglobin (Bld) [Mass/Vol] 12.3 g/dL Normal 12.0-16.0 [facility] Comment on above: Performed By: #### C BC ####[facility] [address] [address]DrIrene [place] Virgen IG # 0.02 10e3/ul Normal 0.00-0.03 [facility] Comment on above: Performed By: #### C BC ####[facility] [address] [address]Dr. Kayy Virgen IG % 0.3 % Normal 0.0-0.5 [facility] Comment on above: Performed By: #### C BC ####[facility] [address] [place], [place] [address]DrIrene Virgen LYMPH # 1.4 103/ul Normal 1.2-3.8 [facility] Comment on above: Performed By: #### C BC ####[facility] [address] [place], [place] [address]DrIrene Virgen Lymphocytes/100 WBC (Bld) 20.8 % Normal 20.5-60.0 [facility] Comment on above: Performed By: #### C BC ####[facility] [address] [place], [place] [address]DrIrene [place] Virgen MANUAL DIFF REQ NO Normal [facility] Comment on above: Performed By: #### C BC ####[facility] [address] [place], [place] [address]DrIrene Virgen MCH (RBC) [Entitic mass] 26.9 pg Normal 26.7-34.0 [facility] Comment on above: Performed By: #### C BC ####[facility] [address] [place], [place] [address]DrIrene Sherees[place]ia Virgen MCHC (RBC) [Mass/Vol] 32.6 g/dL Normal 29.9-35.2 [facility] Comment on above: Performed By: #### C BC ####[facility] [address] [place], [place] [address]DrIrene Virgen MCV (RBC) [Entitic vol] 82.5 fL Normal 81.0-99.0 [facility] Comment on above: Performed By: #### C BC ####[facility] [address] [address]DrIrene Virgen MONO # 0.6 103/ul Normal 0.3-0.8 [facility] Comment on above: Performed By: #### C BC ####[facility] [address] [address]DrIrene Virgen Monocytes/100 WBC (Bld) 8.8 % Normal 1.7-12.0 [facility] Comment on above: Performed By: #### C BC ####[facility] [address] [place], [place] [address]DrIrene Virgen NEUT # 4.5 103/ul Normal 1.4-6.5 [facility] Comment on above: Performed By: #### C BC ####[facility] [address] [place], [place] [address]Dr. Kayy Virgen Neutrophils/100 WBC (Bld) 68.7 % Normal 43.0-75.0 [facility] Comment on above: Performed By: #### C BC ####[facility] [address] [place], [place] [address]DrIrene Virgen Platelet mean volume (Bld) [Entitic vol] 10.2 fL Normal 9.5-13.5 [facility] Comment on above: Performed By: #### C BC ####[facility] [address] [place], [place] [address]Dr. Kayy Virgen PLT 265 103/ul Normal 150-450 [facility] Comment on above: Performed By: #### C BC ####[facility] [address] [place], [place] [id number] Virgen RBC 4.57 106/ul Normal 4.20-5.40 [facility] Comment on above: Performed By: #### C BC ####[facility] [address] [id number] Virgen WBC 6.5 103/ul Normal 4.0-11.0 [facility] Comment on above: Performed By: #### C BC ####[facility] [address] [place], [place] [address]F[address]. Kay[address] Virgen CT ABD/PELVIS WO CONon 08-31 [...] periappendiceal inflammatory changes. Electronically authenticated by: DANNA CASTLE Date: 2021-08-31 12:25 Normal [facility] ER URINE PROFILEon 2 Bilirubin Ql (U) Negative Normal NEGATIVE [facility] Comment on above: Performed By: #### E RUR #### [facility] [address] [address] [address] Kayy Virgen Clarity (U) CLEAR Normal CLEAR [facility] Comment on above: Performed By: #### E RUR #### [facility] [address] [address] [address] Kayy Virgen Color (U) LT. YELLOW Normal YELLOW [facility] Comment on above: Performed By: #### E RUR #### [facility] [address] [place] [address] Dr. Kayy CABRERA A micrscopic examination will be performed if indicated. Normal [facility] Comment on above: Performed By: #### E RUR #### [facility] [address] [place] [address] Dr. Kayy Virgen Glucose Ql (U) Negative Normal NEGATIVE [facility] Comment on above: Performed By: #### E RUR #### [facility] [address] [place] [address] Dr. Kayy Virgen Hemoglobin Ql (U) Negative Normal NEGATIVE [facility] Comment on above: Performed By: #### E RUR #### [facility] [address] [place] [address] Dr. Kayy Virgen Ketones Ql (U) Negative Normal NEGATIVE The [facility] Comment on above: Performed By: #### E RUR #### [facility] [address] [place] [address] Dr. Kayy Virgen LEUKOCYTES Negative Normal NEGATIVE [facility] Comment on above: Performed By: #### E RUR #### [facility] [address] [place] [address] Dr. Kayy Virgen Nitrite Ql (U) Negative Normal NEGATIVE [facility] Comment on above: Performed By: #### E RUR #### [facility] [address] [place] [address] Dr. Kayy Virgen pH (U) 6.0 [pH] Normal 5-9 [facility] Comment on above: Performed By: #### E RUR #### [facility] [address] [place] [address] Dr. Kayy Virgen SPEC GRAVITY <=1.005 Abnormal 1.005-<=1.02 5 [facility] Comment on above: Performed By: #### E RUR #### [facility] [address] [place] [address] Dr. Kayy Virgen UA PROTEIN Negative Normal NEGATIVE/ TRACE [facility] Comment on above: Performed By: #### E RUR #### [facility] [address] [address] [address] Kayy Virgen UR MICRO IND NOT INDICATED Normal The [facility] Comment on above: Performed By: #### E RUR #### [facility] [address] [address] [address] Kayy Virgen Urobilinogen Qn (U) 0.2 {Cuauhtemoc'U}/dL Normal 0.2 - 1. 0 [facility] Comment on above: Performed By: #### E RUR #### [facility] [address] [place] [address] Dr. Kayy Virgen LIPASEon 08-31-2021 Lipase [Catalytic activity/Vol] 73.0 U/L Normal 73.0-393.0 [facility] Comment on above: Performed By: #### A MY, CMP, LIPA #### [facility] [address] [place] [address] Dr. Kayy Virgen PROF 14(COMP METB)on 022 Albumin [Mass/Vol] 3.6 g/dL Normal 3.4-5.0 [facility] Comment on above: Performed By: #### A MY, CMP, LIPA ####[facility] [address] [address]DrIrene Virgen Albumin/Globulin [Mass ratio] 0.9 {ratio} Normal [facility] Comment on above: Performed By: #### A MY, CMP, LIPA ####[facility] [address] [address]DrIrene Virgen ALP [Catalytic activity/Vol] 98 U/L Normal 46-116 [facility] Comment on above: Performed By: #### A MY, CMP, LIPA ####[facility] [address] [address]DrIrene Virgen ALT [Catalytic activity/Vol] 22 U/L Normal 14-59 [facility] Comment on above: Performed By: #### A MY, CMP, LIPA ####[facility] [address] [address]Dr. Kayy Virgen Anion gap [Moles/Vol] 12.6 mmol/L Normal [facility] Comment on above: Performed By: #### A MY, CMP, LIPA ####[facility] [address] [address]Dr. Kayy Virgen AST [Catalytic activity/Vol] 44 U/L Critically high 15-37 [facility] Comment on above: Performed By: #### A MY, CMP, LIPA ####[facility] [address] [address]Dr. Kayy Virgen Bilirubin [Mass/Vol] 0.5 mg/dL Normal 0.2-1.0 [facility] Comment on above: Performed By: #### A MY, CMP, LIPA ####[facility] [address] [place], [place] [address]Dr. Kayy Virgen Calcium [Mass/Vol] 9.2 mg/dL Normal 8.5-10.1 [facility] Comment on above: Performed By: #### A MY, CMP, LIPA ####[facility] [address] [place], [place] [address]Dr. Kayy Virgen Chloride [Moles/Vol] 104 mmol/L Normal 98-107 [facility] Comment on above: Performed By: #### A MY, CMP, LIPA ####[facility] [address] [place], [place] [address]Dr. Kayy Virgen CO2 [Moles/Vol] 24.3 mmol/L Normal 21.0-32.0 [facility] Comment on above: Performed By: #### A MY, CMP, LIPA ####[facility] [address] [place], [place] [address]Dr. Kayy Virgen Creatinine [Mass/Vol] 0.87 mg/dL Normal 0.55-1.02 [facility] Comment on above: Performed By: #### A MY, CMP, LIPA ####[facility] [address] [place], [place] [address]Dr. Kayy Virgen EGFR-AF HUNGARIAN >60 Normal >=60 [facility] Comment on above: Performed By: #### A MY, CMP, LIPA ####[facility] [address] [address]Dr. Kayy Virgen EGFR-NON AF HUNGARIAN >60 Normal >=60 [facility] Comment on above: Performed By: #### A MY, CMP, LIPA ####[facility] [address] [address]Dr. Kayy Virgen Globulin (S) [Mass/Vol] 4.0 g/dL Normal [facility] Comment on above: Performed By: #### A MY, CMP, LIPA ####[facility] [address] [address]Dr. Kayy Virgen Glucose [Mass/Vol] 96 mg/dL Normal 74-106 [facility] Comment on above: Performed By: #### A MY, CMP, LIPA ####[facility] [address] [place], [place] [address]Dr. Kayy Virgen Potassium [Moles/Vol] 3.9 mmol/L Normal 3.5-5.1 [facility] Comment on above: Performed By: #### A MY, CMP, LIPA ####[facility] [address] [place], [place] [address]Dr. Kayy Virgen Protein [Mass/Vol] 7.6 g/dL Normal 6.4-8.2 [facility] Comment on above: Performed By: #### A MY, CMP, LIPA ####[facility] [address] [address]Dr. Kayy Virgen Sodium [Moles/Vol] 137 mmol/L Normal 136-145 [facility] Comment on above: Performed By: #### A MY, CMP, LIPA ####[facility] [address] [address]Dr. Kayy Virgen Urea nitrogen [Mass/Vol] 11.0 mg/dL Normal 7.0-18.0 [facility] Comment on above: Performed By: #### A MY, CMP, LIPA ####[facility] [address] [place], [place] [address]Ig. Kayy Vrigen Urea nitrogen/Creatinine [Mass ratio] 12.6 mg/mg Normal [facility] Comment on above: Performed By: #### A MY, VASU, LIPFinn ####[facility] [address] [place], [place] [address]Cl. Kayy Virgen US THYROID FN ASP BXon 07-05 US THYROID FN ASP BX Begin Addendum #1 COLLECTED DATE/TIME: 06/29/2021 13:56 EDT Final Diagnosis Report for [facility] [place] (A/B) RIGHT THYROID NODULE; FINE NEEDLE [...] 2. Pathology results are pending. Normal [facility] US THYROIDon 06-21-2021 US THYROID [...] nodule. Fine needle aspiration recommended TI-RADS: The [employer] TI-RADS committee's white paper recommendations for thyroid lesions classified as TR4 (moderately suspicious) are listed below: > 1.0 cm. Follow-up ultrasound in 1, 2, 3, and 5 years. > 1.5 cm. FNA. J. Am Anais Radiol 2017;14:[id number]. Electronically authenticated by: ENIO MOHAN Date: 2021-06-21 12:10 Normal [facility] US CAROTID ART BILon 022 [...] >70 >225 >4.0 Electronically authenticated by: DANNA CASTLE Date: 2021-06-08 13:16 Normal [facility] Blood Occult Stool Screen #1 on 10-13-2019 Date, Stool #1 [id number] [facility] [place] [place] Date, Stool #2 NOT REPORTED [facility] [place] Date, Stool #3 NOT REPORTED [facility] [place] Hemoglobin.gastrointe stinal spec 1 Ql (Stl) Negative NEGATIVE [facility] [place] Hemoglobin.gastrointe stinal spec 2 Ql (Stl) NOT REPORTED NEGATIVE [facility] [place] Hemoglobin.gastrointe stinal spec 3 Ql (Stl) NOT REPORTED NEGATIVE [facility] [place] Time, Stool #1 1200 [facility] [place] Time, Stool #2 NOT REPORTED [facility] [place] Time, Stool #3 NOT REPORTED [facility] [place] Occult Blood, Fecalon 2019 Occult Blood 1 Negative Normal NEG [facility] Comment on above: Performed By: #### O BN #### [facility] [address] [place], [place] [id number] Customer Sales Service Manager: Elisabeth Worthy MD Specimen 1 Date [facility] Comment on above: Performed By: #### O BN #### [facility] [address] [place], [place] [id number] Customer Sales Service Manager: Elisabeth Worthy MD Specimen 1 Time 1200 Normal [facility] Comment on above: Performed By: #### O BN #### [facility] [address] [place], [place] [id number] Customer Sales Service Manager: Elisabeth Worthy MD Specimen 2 Date NOT REPORTED Normal [facility] Comment on above: Performed By: #### O BN #### [facility] [address] [place], [place] [id number] Customer Sales Service Manager: Elisabeth Worthy MD Specimen 2 Time NOT REPORTED Normal [facility] Comment on above: Performed By: #### O BN #### [facility] [address] [place], [place] [id number] Customer Sales Service Manager: Elisabeth Worthy MD Specimen 3 Date NOT REPORTED Normal [facility] Comment on above: Performed By: #### O BN #### [facility] [address] [place], [place] [id number] Customer Sales Service Manager: Elisabeth Worthy MD Specimen 3 Time NOT REPORTED Normal [facility] Comment on above: Performed By: #### O BN #### [facility] [address] [place] [address] Customer Sales Service Manager: Elisabeth Worthy MD Occult Blood 2 NOT REPORTED Normal NEG [facility] Comment on above: Performed By: #### O BN #### [facility] [address] [place] [address] Customer Sales Service Manager: Elisabeth Worthy MD Occult Blood 3 NOT REPORTED Normal NEG [facility] Comment on above: Performed By: #### O BN #### [facility] [address] [place] [address] Dr[address] [place], [place] [id number] Customer Sales Service Manager: Elisabeth Worthy MD Free Thyroxine Indexon 10-07 FTI Ratio 2.0 ug/dL Normal 1.4-3.1 [facility] Comment on above: Performed By: #### F TI, FE #### [address] [address] Customer Sales Service Manager: Otoniel Ash MD #### TSH, LIPR, CP, GLYHGB, CDP #### [address] [place] [address] Customer Sales Service Manager: Elisabeth Worthy MD T4 [Mass/Vol] 29.74 % Normal 22.5-37.0 [facility] Comment on above: Performed By: #### F TI, FE #### [address] [address] Customer Sales Service Manager: Otoniel Ash MD #### TSH, LIPR, CP, GLYHGB, CDP #### [address] [place], [place] [id number] Customer Sales Service Manager: Elisabeth Worthy MD T4 [Mass/Vol] 6.6 ug/dL Normal 4.5-10.9 [facility] Comment on above: Performed By: #### F TI, FE #### [address] [address] Customer Sales Service Manager: Otoniel Ash MD #### TSH, LIPR, CP, GLYHGB, CDP #### [address] [place] [address] Customer Sales Service Manager: Elisabeth Worthy MD Ironon 10-08-2019 Iron [Mass/Vol] 73 ug/dL Normal 37-145 [facility] Comment on above: Performed By: #### F TI, FE #### [facility] [address] [place] [address] Customer Sales Service Manager: Otoniel Ash MD #### TSH, LIPR, CP, GLYHGB, CDP #### [facility] [address] [place] [address] Customer Sales Service Manager: Elisabeth Worthy MD T3 uptake and FTIon 10-08-19 20 Free Thyroxine Index 2 ug/dL 1.4 - 3 .1 ug/dL [place] T4 [Mass/Vol] 29.74 % 22.5 - 37 % [place] T4, Total 6.6 ug/dL 4.5 - 10.9 ug/dL [place] CBC Auto Differentialon 09-16 Basophils (Bld) [#/Vol] 0.07 10*3/uL [place] Basophils/100 WBC (Bld) 1 % 0 - 2 % [place] Differential Type NOT REPORTED [place] Eosinophils (Bld) [#/Vol] 0.06 10*3/uL [place] Eosinophils/100 WBC (Bld) 1 % 1 - 4 % [place] Erythrocyte distribution width (RBC) [Ratio] 14.5 % High 11.8 - 14.4 % [place] Hematocrit (Bld) [Volume fraction] 42.4 % 36.3 - 47.1 % [place] Hemoglobin (Bld) [Mass/Vol] 13.2 g/dL 11.9 - 15.1 g/dL [place] Immature granulocytes (Bld) [#/Vol] 10*3/uL [place] Immature granulocytes (Bld) [#/Vol] 0 % 0 [place] Interpretation and review of laboratory results Abnormal [place] Lymphocytes (Bld) [#/Vol] 1.87 10*3/uL [place] Lymphocytes/100 WBC (Bld) 33 % 24 - 43 % [place] MCH (RBC) [Entitic mass] 26.1 pg 25.2 - 33.5 pg [place] MCHC (RBC) [Mass/Vol] 31.1 g/dL 28.4 - 34.8 g/dL [place] MCV (RBC) [Entitic vol] 84.0 fL 82.6 - 102.9 fL [place] Monocytes (Bld) [#/Vol] 0.45 10*3/uL [place] Monocytes/100 WBC (Bld) 8 % 3 - 12 % [place] Platelet mean volume (Bld) [Entitic vol] 10.1 fL 8.1 - 13.5 fL [place] Platelets (Bld) [#/Vol] 270 10*3/uL [place] Platelets (Bld) [#/Vol] NOT REPORTED [place] RBC (Bld) [#/Vol] 5.05 10*6/uL 3.95 - 5.1 1 m/uL [place] RBC morphology finding Nom (Bld) NOT REPORTED [place] Segmented neutrophils/100 WBC (Bld) 57 % 36 - 65 % [place] Segs Absolute 3.17 [place] WBC (Bld) [#/Vol] 5.6 10*3/uL [place] WBC (Bld) [#/Vol] 0.0 10*3/uL 0.0 per 10 0 WBC [place] WBC Morphology NOT REPORTED [place] CBC with Diffon 10-07-2019 Abs. Basophil 0.07 k/uL Normal 0.00-0.20 [facility] Comment on above: Performed By: #### F TI, FE #### [facility] [address] [place] [address] Customer Sales Service Manager: Otoniel Ash MD #### TSH, LIPR, CP, GLYHGB, CDP #### [facility] [address] [place] [address] Customer Sales Service Manager: Elisabeth Worthy MD Abs.Imm.Granulocyte <0.03 Normal 0.00-0.30 [facility] Comment on above: Performed By: #### F HUMBERTO, FE #### [place] [address] Customer Sales Service Manager: Otoniel Ash MD #### TSH, LIPR, CP, GLYHGB, CDP #### [address] [place] [address] Customer Sales Service Manager: Elisabeth Worthy MD Abs.Neutrophil (Seg) 3.17 k/uL Normal 1.50-8.10 [facility] Comment on above: Performed By: #### F HUMBERTO, FE #### [place] [address] Customer Sales Service Manager: Otoniel Ash MD #### TSH, LIPR, CP, GLYHGB, CDP #### [address] [place] [address] Customer Sales Service Manager: Elisabeth Worthy MD Basophils/100 WBC (Bld) 1 % Normal 0-2 [facility] Comment on above: Performed By: #### F HUMBERTO, FE #### [place] [address] Customer Sales Service Manager: Otoniel Ash MD #### TSH, LIPR, CP, GLYHGB, CDP #### [address] [place] [address] Customer Sales Service Manager: Elisabeth Worthy MD Eosinophils (Bld) [#/Vol] 0.06 10*3/uL Normal 0.00-0.44 [facility] Comment on above: Performed By: #### F TI, FE #### [place] [phone] Customer Sales Service Manager: Otoniel Ash MD #### TSH, LIPR, CP, GLYHGB, CDP #### [address] [place] [phone] Customer Sales Service Manager: Elisabeth Worthy MD Eosinophils/100 WBC (Bld) 1 % Normal 1-4 [facility] Comment on above: Performed By: #### F TI, FE #### [address] [phone] Customer Sales Service Manager: Otoniel Ash MD #### TSH, LIPR, CP, GLYHGB, CDP #### [address] [place] [phone] Customer Sales Service Manager: Elisabeth Worthy MD Erythrocyte distribution width (RBC) [Ratio] 14.5 % High 11.8-14.4 [facility] Comment on above: Performed By: #### F TI, FE #### [address] [phone] Customer Sales Service Manager: Otoniel Ash MD #### TSH, LIPR, CP, GLYHGB, CDP #### [address] [place] [phone] Customer Sales Service Manager: Elisabeth Worthy MD Hematocrit (Bld) [Volume fraction] 42.4 % Normal 36.3-47.1 [facility] Comment on above: Performed By: #### F TI, FE #### [address] [phone] Customer Sales Service Manager: Otoniel Ash MD #### TSH, LIPR, CP, GLYHGB, CDP #### [address] [place] [phone] Customer Sales Service Manager: Elisabeth Worthy MD Hemoglobin (Bld) [Mass/Vol] 13.2 g/dL Normal 11.9-15.1 [facility] Comment on above: Performed By: #### F TI, FE #### [address] [phone] Customer Sales Service Manager: Otoniel Ash MD #### TSH, LIPR, CP, GLYHGB, CDP #### [facility] [address] [place] [phone] Customer Sales Service Manager: Elisabeth Worthy MD Immature granulocytes (Bld) [#/Vol] 0 % Normal 0 [facility] Comment on above: Performed By: #### F TI, FE #### [address] [address] Customer Sales Service Manager: Otoniel Ash MD #### TSH, LIPR, CP, GLYHGB, CDP #### [facility] [address] [place] [phone] Customer Sales Service Manager: Elisabeth Worthy MD Lymphocytes (Bld) [#/Vol] 1.87 10*3/uL Normal 1.10-3.70 [facility] Comment on above: Performed By: #### F TI, FE #### [place] [phone] Customer Sales Service Manager: Otoniel Ash MD #### TSH, LIPR, CP, GLYHGB, CDP #### [address] [place] [phone] Customer Sales Service Manager: Elisabeth Worthy MD Lymphocytes/100 WBC (Bld) 33 % Normal 24-43 [facility] Comment on above: Performed By: #### F TI, FE #### [place] [phone] Customer Sales Service Manager: Otoniel Ash MD #### TSH, LIPR, CP, GLYHGB, CDP #### [facility] [address] [place] [address] Dr[place] [phone] Customer Sales Service Manager: Elisabeth Worthy MD MCH (RBC) [Entitic mass] 26.1 pg Normal 25.2-33.5 [facility] Comment on above: Performed By: #### F TI, FE #### [address] [phone] Customer Sales Service Manager: Otoniel Ash MD #### TSH, LIPR, CP, GLYHGB, CDP #### [address] [place] [address] Customer Sales Service Manager: Elisabeth Worthy MD MCHC (RBC) [Mass/Vol] 31.1 g/dL Normal 28.4-34.8 [facility] Comment on above: Performed By: #### F TI, FE #### [address] [phone] Customer Sales Service Manager: Otoniel Ash MD #### TSH, LIPR, CP, GLYHGB, CDP #### [address] [place] [phone] Customer Sales Service Manager: Elisabeth Worthy MD MCV (RBC) [Entitic vol] 84.0 fL Normal 82.6-102.9 [facility] Comment on above: Performed By: #### F TI, FE #### [place] [phone] Customer Sales Service Manager: Otoniel Ash MD #### TSH, LIPR, CP, GLYHGB, CDP #### [address] [place] [address] Customer Sales Service Manager: Elisabeth Worthy MD Monocytes (Bld) [#/Vol] 0.45 10*3/uL Normal 0.10-1.20 [facility] Comment on above: Performed By: #### F TI, FE #### [address] [address] Customer Sales Service Manager: Otoniel Ash MD #### TSH, LIPR, CP, GLYHGB, CDP #### [address] [place] [address] Customer Sales Service Manager: Elisabeth Worthy MD Monocytes/100 WBC (Bld) 8 % Normal 3-12 [facility] Comment on above: Performed By: #### F TI, FE #### [address] [phone] Customer Sales Service Manager: Otoniel Ash MD #### TSH, LIPR, CP, GLYHGB, CDP #### [address] [place] [address] Customer Sales Service Manager: Elisabeth Worthy MD Neutrophil (Seg) 57 % Normal 36-65 [facility] Comment on above: Performed By: #### F TI, FE #### [address] [phone] Customer Sales Service Manager: Otoniel Ash MD #### TSH, LIPR, CP, GLYHGB, CDP #### [address] [place] [address] Customer Sales Service Manager: Elisabeth Worthy MD NRBC Automated 0.0 per 100 WBC Normal 0.0 [facility] Comment on above: Performed By: #### F TI, FE #### [address] [address] Customer Sales Service Manager: Otoniel Ash MD #### TSH, LIPR, CP, GLYHGB, CDP #### [address] [place] [address] Customer Sales Service Manager: Elisabeth Worthy MD Platelet mean volume (Bld) [Entitic vol] 10.1 fL Normal 8.1-13.5 [facility] Comment on above: Performed By: #### F TI, FE #### [address] [phone] Customer Sales Service Manager: Otoniel Ash MD #### TSH, LIPR, CP, GLYHGB, CDP #### [address] [place] [address] Customer Sales Service Manager: Elisabeth Worthy MD Platelets (Bld) [#/Vol] 270 10*3/uL Normal 138-453 [facility] Comment on above: Performed By: #### F TI, FE #### [address] [address] Customer Sales Service Manager: Otoniel Ash MD #### TSH, LIPR, CP, GLYHGB, CDP #### [address] [place], [place] [phone] Customer Sales Service Manager: Elisabeth Worthy MD RBC (Bld) [#/Vol] 5.05 10*6/uL Normal 3.95-5.11 [facility] Comment on above: Performed By: #### F TI, FE #### [address] [address] Customer Sales Service Manager: Otoniel Ash MD #### TSH, LIPR, CP, GLYHGB, CDP #### [address] [place] [phone] Customer Sales Service Manager: Elisabeth Worthy MD WBC (Bld) [#/Vol] 5.6 10*3/uL Normal 3.5-11.3 [facility] Comment on above: Performed By: #### F TI, FE #### [address] [address] Customer Sales Service Manager: Otoniel Ash MD #### TSH, LIPR, CP, GLYHGB, CDP #### [address] [place] [address] Customer Sales Service Manager: Elisabeth Worthy MD Auto Diff Performed NOT REPORTED Normal [facility] Comment on above: Performed By: #### F TI, FE #### [address] [address] Customer Sales Service Manager: Otoniel Ash MD #### TSH, LIPR, CP, GLYHGB, CDP #### [address] [place], [place] [phone] Customer Sales Service Manager: Elisabeth Worthy MD Platelets (Bld) [#/Vol] NOT REPORTED Normal [facility] Comment on above: Performed By: #### F TI, FE #### [address] [address] Customer Sales Service Manager: Otoniel Ash MD #### TSH, LIPR, CP, GLYHGB, CDP #### [facility] [address] [place] [address] Dr[address] [place], [place] [phone] Customer Sales Service Manager: Elisabeth Worthy MD RBC morphology finding Nom (Bld) NOT REPORTED Normal [facility] Comment on above: Performed By: #### F TI, FE #### [address] [address] Customer Sales Service Manager: Otoniel Ash MD #### TSH, LIPR, CP, GLYHGB, CDP #### [address] [place], [place] [phone] Customer Sales Service Manager: Elisabeth Worthy MD WBC Morphology NOT REPORTED Normal [facility] Comment on above: Performed By: #### F TI, FE #### [address] [address] Customer Sales Service Manager: Otoniel Ash MD #### TSH, LIPR, CP, GLYHGB, CDP #### [address] [place], [place] [phone] Customer Sales Service Manager: Elisabeth Worthy MD Comp Metabolic Profon 2019 (cont.) Normal [facility] Comment on above: Result Comment: Aver age GFR for 60-69 years old: 85 mL/min/1.73sq m Chronic Kidney Disease: <60 mL/min/1.73sq m Kidney failure: <15 mL/min/1.73sq m eGFR calculated using average adult body mass. Additional eGFR calculator available at: http://www.[employer].com/multiple_crcl_2012.htm Performed By: #### F TI, FE #### [address] [phone] Customer Sales Service Manager: Otoniel Ash MD #### TSH, LIPR, CP, GLYHGB, CDP #### [facility] [address] [place], [place] [phone] Customer Sales Service Manager: Elisabeth Worthy MD Albumin [Mass/Vol] 4.5 g/dL Normal 3.5-5.2 [facility] Comment on above: Performed By: #### F TI, FE #### [address] [address] Customer Sales Service Manager: Otoniel Ash MD #### TSH, LIPR, CP, GLYHGB, CDP #### [facility] [address] [place] [address] Customer Sales Service Manager: Elisabeth Worthy MD Albumin/Globulin [Mass ratio] 1.4 {ratio} Normal 1.0-2.5 [facility] Comment on above: Performed By: #### F TI, FE #### [address] [address] Customer Sales Service Manager: Otoniel Ash MD #### TSH, LIPR, CP, GLYHGB, CDP #### [facility] [address] [place] [address] Dr. [place] [phone] Customer Sales Service Manager: Elisabeth Worthy MD Alkaline Phos 94 U/L Normal 35-104 [facility] Comment on above: Performed By: #### F TI, FE #### [address] [address] Customer Sales Service Manager: Otoniel Ash MD #### TSH, LIPR, CP, GLYHGB, CDP #### [address] [place] [phone] Customer Sales Service Manager: Elisabeth Worthy MD ALT [Catalytic activity/Vol] 10 U/L Normal 5-33 [facility] Comment on above: Performed By: #### F TI, FE #### [address] [address] Customer Sales Service Manager: Otoniel Ash MD #### TSH, LIPR, CP, GLYHGB, CDP #### [facility] [address] [place] [address] Customer Sales Service Manager: Elisabeth Worthy MD Anion gap [Moles/Vol] 12 mmol/L Normal 9-17 [facility] Comment on above: Performed By: #### F TI, FE #### [address] [address] Customer Sales Service Manager: Otoniel Ash MD #### TSH, LIPR, CP, GLYHGB, CDP #### [facility] [address] [place] [phone] Customer Sales Service Manager: Elisabeth Worthy MD AST [Catalytic activity/Vol] 40 U/L High <32 [facility] Comment on above: Performed By: #### F TI, FE #### [address] [address] Customer Sales Service Manager: Otoniel Ash MD #### TSH, LIPR, CP, GLYHGB, CDP #### [facility] [address] [place] [phone] Customer Sales Service Manager: Elisabeth Worthy MD Bilirubin Ql (U) 0.27 mg/dL Low 0.3-1.2 [facility] Comment on above: Performed By: #### F TI, FE #### [address] [address] Customer Sales Service Manager: Otoniel Ash MD #### TSH, LIPR, CP, GLYHGB, CDP #### [facility] [address] [address] Customer Sales Service Manager: Elisabeth Worthy MD BUN/CRE Ratio 22 High 9-20 [facility] Comment on above: Performed By: #### F TI, FE #### [address] [address] Customer Sales Service Manager: Otoniel Ash MD #### TSH, LIPR, CP, GLYHGB, CDP #### [facility] [address] [place] [address] Customer Sales Service Manager: Elisabeth Worthy MD Calcium [Mass/Vol] 10.0 mg/dL Normal 8.6-10.4 [facility] Comment on above: Performed By: #### F TI, FE #### [address] [phone] Customer Sales Service Manager: Otoniel Ash MD #### TSH, LIPR, CP, GLYHGB, CDP #### [address] [place] [phone] Customer Sales Service Manager: Elisabeth Worthy MD Chloride [Moles/Vol] 105 mmol/L Normal 98-107 [facility] Comment on above: Performed By: #### F TI, FE #### [address] [address] Customer Sales Service Manager: Otoniel Ash MD #### TSH, LIPR, CP, GLYHGB, CDP #### [address] [place] [phone] Customer Sales Service Manager: Elisabeth Worthy MD CO2 [Moles/Vol] 21 mmol/L Normal 20-31 [facility] Comment on above: Performed By: #### F TI, FE #### [address] [phone] Customer Sales Service Manager: Otoniel Ash MD #### TSH, LIPR, CP, GLYHGB, CDP #### [facility] [address] [place] [address] [place] [address] Customer Sales Service Manager: Elisabeth Worthy MD Creatinine [Mass/Vol] 0.79 mg/dL Normal 0.50-0.90 [facility] Comment on above: Performed By: #### F TI, FE #### [address] [phone] Customer Sales Service Manager: Otoniel Ash MD #### TSH, LIPR, CP, GLYHGB, CDP #### [facility] [address] [place] [address] [place] [address] Customer Sales Service Manager: Elisabeth Worthy MD GFR, Amer >60 Normal >60 [facility] Comment on above: Performed By: #### F TI, FE #### [address] [phone] Customer Sales Service Manager: Otnoiel Ash MD #### TSH, LIPR, CP, GLYHGB, CDP #### [address] [place] [address] Customer Sales Service Manager: Elisabeth Worthy MD GFR,non Amer >60 Normal >60 [facility] Comment on above: Performed By: #### F TI, FE #### [address] [phone] Customer Sales Service Manager: Otoniel Ash MD #### TSH, LIPR, CP, GLYHGB, CDP #### [address] [place] [address] Customer Sales Service Manager: Elisabeth Worthy MD Glucose [Mass/Vol] 99 mg/dL Normal 70-99 [facility] Comment on above: Performed By: #### F TI, FE #### [address] [phone] Customer Sales Service Manager: Otoniel Ash MD #### TSH, LIPR, CP, GLYHGB, CDP #### [address] [place] [address] Customer Sales Service Manager: Elisabeth Worthy MD Potassium [Moles/Vol] 4.1 mmol/L Normal 3.7-5.3 [facility] Comment on above: Performed By: #### F TI, FE #### [address] [phone] Customer Sales Service Manager: Otoniel Ash MD #### TSH, LIPR, CP, GLYHGB, CDP #### [address] [place] [address] Customer Sales Service Manager: Elisabeth Worthy MD Protein [Mass/Vol] 7.7 g/dL Normal 6.4-8.3 [facility] Comment on above: Performed By: #### F TI, FE #### [address] [phone] Customer Sales Service Manager: Otoniel Ash MD #### TSH, LIPR, CP, GLYHGB, CDP #### [address] [place] [address] Customer Sales Service Manager: Elisabeth Worthy MD Sodium [Moles/Vol] 138 mmol/L Normal 135-144 [facility] Comment on above: Performed By: #### F TI, FE #### [address] [phone] Customer Sales Service Manager: Otoniel Ash MD #### TSH, LIPR, CP, GLYHGB, CDP #### [address] [place] [address] Customer Sales Service Manager: Elisabeth Worthy MD Staging: Normal [facility] Comment on above: Result Comment: Stag e 1: Some kidney damage normal GFR Stage 2: Mild kidney damage GFR 60-89 Stage 3: Moderate kidney damage GFR 30-59 Stage 4: Severe kidney damage GFR 15-29 Stage 5: Severe kidney damage GFR <15 ESRD - chronic treatment by dialysis or transplant Performed By: #### F TI, FE #### [address] [phone] Customer Sales Service Manager: Otoniel Ash MD #### TSH, LIPR, CP, GLYHGB, CDP #### [address] [place] [address] Customer Sales Service Manager: Elisabeth Worthy MD Urea nitrogen [Mass/Vol] 17 mg/dL Normal 8-23 [facility] Comment on above: Performed By: #### F TI, FE #### [facility] [address] [place] [address] Customer Sales Service Manager: Otoniel Ash MD #### TSH, LIPR, CP, GLYHGB, CDP #### [facility] [address] [place] [address] Customer Sales Service Manager: Elisabeth Worthy MD Comprehensive Metabolic Pane [facility] 10-07-2019 Albumin [Mass/Vol] 4.5 g/dL 3.5 - 5.2 g/dL [place] Albumin/Globulin [Mass ratio] 1.4 {ratio} [place] ALP [Catalytic activity/Vol] 94 U/L 35 - 104 U/L [place] ALT [Catalytic activity/Vol] 10 U/L 5 - 33 U/L [place] Anion gap [Moles/Vol] 12 mmol/L 9 - 17 mmol/L [place] AST [Catalytic activity/Vol] 40 U/L High <32 [place] Bilirubin Ql (U) 0.27 mg/dL Low 0.3 - 1.2 mg/dL [place] Bun/Cre Ratio 22 High [place] Calcium [Mass/Vol] 10.0 mg/dL 8.6 - 10. 4 mg/dL [place] Chloride [Moles/Vol] 105 mmol/L 98 - 10 7 mmol/L [place] CO2 [Moles/Vol] 21 mmol/L 20 - 31 mmol/L [place] Creatinine [Mass/Vol] 0.79 mg/dL 0.5 - 0.9 mg/dL [place] GFR >60 >60 mL/min [place] GFR Non- >60 >60 mL/min [place] Glucose [Mass/Vol] 99 mg/dL 70 - 99 mg/dL [place] Potassium [Moles/Vol] 4.1 mmol/L 3.7 - 5.3 mmol/L [place] Protein [Mass/Vol] 7.7 g/dL 6.4 - 8.3 g/dL [place] Sodium [Moles/Vol] 138 mmol/L 135 - 144 mmol/L [place] Urea nitrogen [Mass/Vol] 17 mg/dL 8 - 23 mg/dL [place] Hemoglobin A1Con 10-07-2019 HbA1c (Bld) [Mass fraction] 5.3 % Normal 4.8-5.9 [facility] Comment on above: Performed By: #### F TI, FE #### [facility] [address] [place] [address] Customer Sales Service Manager: Otoniel Ash MD #### TSH, LIPR, CP, GLYHGB, CDP #### [facility] [address] [place] [address] Customer Sales Service Manager: Elisabeth Worthy MD HbA1c (Bld) [Mass fraction] 105 mg/dL Normal [facility] Comment on above: Result Comment: The ADA and AACC recommend providing the estimated average glucose result to permit better patient understanding of their HBA1c result. Performed By: #### F TI, FE #### [facility] [address] [place] [address] Customer Sales Service Manager: Otoniel Ash MD #### TSH, LIPR, CP, GLYHGB, CDP #### [address] [place] [address] Customer Sales Service Manager: Elisabeth Worthy MD Glucose [Mass/Vol] 105 mg/dL [place] Comment on above: The ADA and AACC rec ommend providing the estimated average glucose result to permit better patient understanding of their HBA1c result. HbA1c (Bld) [Mass fraction] 5.3 % 4.8 - 5.9 % [place] Ironon 10-07-2019 Iron [Mass/Vol] 73 ug/dL 37 - 145 ug/dL [place] Lipid Panelon 10-07-2019 Cholesterol [Mass/Vol] 229 mg/dL High <200 [place] Comment on above: Cholesterol Guidelines: <200 Desirable 200-240 Borderline >240 Undesirable Cholesterol in HDL [Mass/Vol] 67 mg/dL >40 [place] Comment on above: HDL Guidelines: <40 Undesirable 40-59 Borderline >59 Desirable Cholesterol in LDL [Mass/Vol] 127 mg/dL 0 - 130 mg/dL [place] Comment on above: LDL Guidelines: <100 Desirable 100-129 Near to/above Desirable 130-159 Borderline >159 Undesirable Direct (measured) LDL and calculated LDL are not interchangeable tests. Cholesterol in VLDL [Mass/Vol] NOT REPORTED High 1 - 30 mg/dL [place] Cholesterol.total/Cho lesterol in HDL [Mass ratio] 3.4 {ratio} <5 [place] Triglyceride [Mass/Vol] 175 mg/dL High <150 [place] Comment on above: Triglyceride Guidelines: <150 Desirable 150-199 Borderline 200-499 High >499 Very high Based on AHA Guidelines for fasting triglyceride, December 2011. Lipid Profileon 10-07-2019 Cholesterol [Mass/Vol] 229 mg/dL High <200 [facility] Comment on above: Result Comment: Cholesterol Guidelines: <200 Desirable 200-240 Borderline >240 Undesirable Performed By: #### F TI, FE #### [address] [address] Customer Sales Service Manager: Otoniel Ash MD #### TSH, LIPR, CP, GLYHGB, CDP #### [facility] [address] [place] [address] [place] [address] Customer Sales Service Manager: Elisabeth Worthy MD Cholesterol in HDL [Mass/Vol] 67 mg/dL Normal >40 [facility] Comment on above: Result Comment: HDL Guidelines: <40 Undesirable 40-59 Borderline >59 Desirable Performed By: #### F TI, FE #### [address] [phone] Customer Sales Service Manager: Otoniel Ash MD #### TSH, LIPR, CP, GLYHGB, CDP #### [facility] [address] [place] [address] [place] [address] Customer Sales Service Manager: Elisabeth Worthy MD Cholesterol in LDL [Mass/Vol] 127 mg/dL Normal 0-130 [facility] Comment on above: Result Comment: LDL Guidelines: <100 Desirable 100-129 Near to/above Desirable 130-159 Borderline >159 Undesirable Direct (measured) LDL and calculated LDL are not interchangeable tests. Performed By: #### F TI, FE #### [address] [address] Customer Sales Service Manager: Otoniel Ash MD #### TSH, LIPR, CP, GLYHGB, CDP #### [facility] [address] [place] [address] Customer Sales Service Manager: Elisabeth Worthy MD Cholesterol.total/Cho lesterol in HDL [Mass ratio] 3.4 {ratio} Normal <5 [facility] Comment on above: Performed By: #### F TI, FE #### [address] [address] Customer Sales Service Manager: Otoniel Ash MD #### TSH, LIPR, CP, GLYHGB, CDP #### [address] [place], [facility] Customer Sales Service Manager: Elisabeth Worthy MD Triglyceride [Mass/Vol] 175 mg/dL High <150 [facility] Comment on above: Result Comment: Triglyceride Guidelines: <150 Desirable 150-199 Borderline 200-499 High >499 Very high Based on AHA Guidelines for fasting triglyceride, December 2011. Performed By: #### F TI, FE #### [address] [address] Customer Sales Service Manager: Otoniel Ash MD #### TSH, LIPR, CP, GLYHGB, CDP #### [address] [place] [address] Customer Sales Service Manager: Elisabeth Worthy MD Cholesterol in VLDL [Mass/Vol] NOT REPORTED Normal 1-30 [facility] Comment on above: Performed By: #### F TI, FE #### [facility] [address] [place], [place] [id number] Customer Sales Service Manager: Otoniel Ash MD #### TSH, LIPR, CP, GLYHGB, CDP #### [facility] [address] [place] [address] Customer Sales Service Manager: Elisabeth Worthy MD Metabolic Panelon 10-07-2019 GFR/1.73 sq M predicted among non-blacks MDRD (S/P/Bld) [Vol rate/Area] [place], [place] Comment on above: Stage 1: Some [...] body mass. Additional eGFR calculator available at: http://www.Botanical Tans/multiple_crcl_2012.htm Otheron 10-07-2019 Interpretation and review of laboratory results Abnormal [place], [place] TSH without Reflexon 020 TSH Qn 1.12 m[IU]/L [place] Thyroid Stim. Horm.on 2019 TSH Qn 1.12 m[IU]/L Normal 0.30-5.00 [facility] Comment on above: Performed By: #### F HUMBERTO FE #### [id number] [place], [place] [id number] Customer Sales Service Manager: Otoniel Ash MD #### TSH, LIPR, CP, GLYHGB, CDP #### [facility] [address] [place] [address] [place] [address] Customer Sales Service Manager: Elisabeth Worthy MD Operative Reporton 8 Operative Report MR#: [id number] [facility] Pt. Name: Xena Ewing Room #: 0C Discharge Date: Birthdate: 1955 OPERATIVE REPORTDATE OF SURGERY: 03/17/2018SURGEON: Bart Holcomb M.D.CHORAL TEACHER: Carlton Galicia M.D.PREOPERATIVE DIAGNOSIS: Right recurrent de Quervain's tenosynovitis.POSTOPERA TIVE DIAGNOSIS: Right recurrent de Quervain's tenosynovitis.PROCEDURE PERFORMED: Revision release of right de Quervain'stenosynovitis .INTRAOPERATIVE FINDINGS: Some scarring around the tendon proximally [...] procedure well. There were no complications. The patientclevelandll ace nonweightbearing to the right upper extremity. We will see thepatient back in 10 to 14 [address] for suture removal[address] Dr. Holcomb was presentfor all critical aspects of the procedure and was otherwise immediatelyavailable for assistance.Electronical ly Signed by:Bart Holcomb M.D. 03/17/2018 04:51 P Alicia Holcomb M.D. I was present for the entire procedure. Date Dict: 03/17/2018/10:00 A/Carlton Galicia, EMETERIOate Trans: 03/17/2018 11:55 A/Marissa_JN:[id number]: Anamika Valle M.D. [address] [facility] [address] [address] [facility] POC GLUCOSE LABon 03-17-2018 Glucose mass conc 89 mg/dL Normal 70-[address] [facility] Comment on above: Performed By: #### 8 [id number] ####[facility] Vital Signs Date Time Vital Sign Value Performing Clinician Morena sahu 02-05-2024 14:03-0500 Blood Pressure Location Super [facility] 02-05-2024 14:03-0500 Diastolic blood pressure 84 mm[Hg] GlowbioticsL [facility] 02-05-2024 14:03-0500 Heart rate 72 /min Super [facility] 02-05-2024 14:03-0500 Respiratory rate 16 /min Rubén HuitongdaL [facility] 02-05-2024 14:03-0500 Systolic blood pressure 132 mm[Hg] Rubén ACEVEDOL [facility] 10-23-2022 11:13-0400 Body height 165.1 cm Claire Morales MD Work Phone: [facility] 10-23-2022 11:130400 Body weight 73.07 kg Claire Morales MD Work Phone: [facility] 10-23-2022 11:13-0400 Diastolic blood pressure 71 mm[Hg] Claire Morales MD Work Phone: [facility] 10-23-2022 11:13-0400 Heart rate 77 /min Claire Morales MD Work Phone: [facility] 10-23-2022 11:13-0400 Systolic blood pressure 125 mm[Hg] Claire Morales MD Work Phone: [facility] Encounters Encounter Date Encounter Type Care Provider Facility Start: 02-06-2024 End: 02-06-2024 ambulatory GEORGES BURNS Facility:[facility] Start: 02-06-2024 End: 02-06-[address] GEORGES BURNS [facility] Start: 02-05-2024 End: 02-05-2024 ambulatory Rubén MANUEL Facility:[facility] Start: 02-05-2024 End: 02-05-2024 Patient encounter procedure Rubén MANUEL [facility] Start: 12-27-2023 End: 12-27-2023 Patient encounter procedure MD Anamika Valle Work Phone: [facility] Work Phone: Start: 12-27-2023 End: 12-27-2023 ambulatory MD Anamika Valle Work Phone: [facility] Work Phone: Start: 12-17-2023 End: 12-17-2023 Bamboo flowsheet Shirin Durbiner [facility] Work Phone: [facility] Start: 12-17-2023 End: 12-17-2023 Bamboo flowsheet Shirin Durbiner [facility] Work Phone: [facility] Start: 12-17-2023 End: 12-17-2023 Office outpatient new 20 minutes Shirin Escobar [facility] Work Phone: [facility] Comment on [...] 12-24-2022 ambulatory MD Anamika Valle Work Phone: [facility] Work Phone: Start: 12-24-2022 End: 12-24-2022 Patient encounter procedure MD Anamika Valle Work Phone: [facility] Work Phone: Start: 10-23-2022 End: 10-24-2022 ambulatory ANAMIKA VALLE Facility:[facility] Start: 10-23-2022 End: 10-23-2022 Patient encounter procedure Claire Morales MD Work Phone: General Surgery Comment on above: Ventral hernia witho ut obstruction or gangrene (Primary Dx) Start: 04-19-2022 End: 04-19-2022 ambulatory DESTINI DOOLEY Facility:[facility] Start: 01-05-2022 End: 01-06-[address] ANAMIKA VALLE Facility:[facility] Start: 12-21-2021 End: 12-21-2021 ambulatory MD Anamika Valle Work Phone: [facility] Work Phone: Start: 12-21-2021 End: 12-21-2021 Patient encounter procedure MD Anamika Valle Work Phone: [facility] Start: 11-09-2021 End: 11-10-[address] ANAMIKA VALLE Facility:[facility] Start: 08-31-2021 End: 08-31-[address] ANAMIKA VALLE Facility:[facility] Start: 06-29-2021 End: 06-29-[address] ANAMIKA VALLE Facility:[facility] Start: 06-21-2021 End: 06-22-[address] ANAMIKA VALLE Facility:[facility] Start: 06-08-2021 End: 06-09-[address] ANAMIKA VALLE Facility:[facility] Start: 10-13-2019 End: 10-14-2019 Patient encounter procedure [facility] Start: 10-13-2019 End: 10-13-2019 Subsequent hospital visit by physician Anamika Valle [facility] Start: 10-07-2019 End: 10-08-2019 Patient encounter procedure [facility] Start: 10-07-2019 End: 10-07-2019 Subsequent hospital visit by physician [facility] Drawing Room [facility] Laboratory Comment on above: Arrived Start: 03-17-2018 End: 03-18-2018 Patient encounter procedure GIOVANI HOLCOMB Facility:[facility] Start: 02-14-2018 End: 02-15-2018 Patient encounter procedure DEFAULT PHYSICIAN Facility:[facility] Procedures Date Procedure Procedure Detail Performing Clinician Start: 12-27-2023 Screening mammograph y of bilateral breasts MD Anamika Valle Work Phone: Start: 12-17-2023 CRYOTHERAPY SKIN LESION Shirin Escobar [facility] Work Phone: Start: 12-24-2022 Screening mammograph y of bilateral breasts MD Anamika Valle Work Phone: Start: 04-19-2022 Mammography Shirin alvarez [facility] Work Phone: Start: 12-21-2021 Screening mammograph y [...] 03-17-2018 INCISION OF TENDON SHEATH ABDULAZIM JI Appendectomy Rubén MANUEL Colonoscopy Rubén MANUEL Decompression of med vernon nerve Rubén MANUEL Re-release of carpal tunnel Rubén MANUEL Total abdominal hysterectomy with bilateral salpingo-oophorectomy Rubén MANUEL Plan of Treatment Date Care Activity Detail Author Start: 06-01-2028 DTaP/Tdap/Td vaccine (2 - Td) DTaP/Tdap/Td vaccine (2 - Td) [place], [place] Start: 10-06-2024 Lipid panel Lipid screen [place], [place] Start: 06-01-2024 End: 06-01-2024 Patient encounter procedure 06/01/2024 11:00 AM EDT Office Visit [facility] [address] [place] [id number] Severo Curry DO [address] [place] [address] [facility] Start: 12-17-2023 End: 12-17-2023 Patient encounter procedure 12/17/2023 11:05 AM EDT Office Visit [facility] [address] [place] [id number] Shirin Escobar, [facility] [address] [place] [address] Arrived [facility] Comment on above: Arrived Start: 11-17-2023 Influenza vaccination Influenza Vacc ine (#1) [facility] Start: 04-19-2023 Screening for malign ant neoplasm of breast Mammogram [facility] Start: 11-16-2022 Influenza vaccination INFLUENZA (#1) [facility] Start: 04-21-2022 COVID-19 VACCINE (5 - Pfizer series) COVID-19 VACCINE (5 - Pfizer series) [facility] Start: 03-18-2022 ADVANCE DIRECTIVE DISCUSSION ADVANCE DIRECTIVE DISCUSSION [facility] Start: 03-18-2022 DEPRESSION ASSESSMENT DEPRESSION ASS ESSMENT [facility] Start: 2021 BONE DENSITY BONE DENSITY [facility] Start: 2021 Pneumococcal Vaccine : 65+ Years (2 of 2 - PCV) Pneumococcal Vaccine: 65+ Years (2 of 2 - PCV) [facility] Start: 11-17-2019 Influenza vaccination Flu vaccine (# 1) [place], [place] Start: 2006 Influenza vaccination LUNG CANCER [facility] Start: 2006 Screening for malign ant neoplasm of breast Breast cancer screen [place], [place] Start: 2006 Screening for malign ant neoplasm of colon Colon cancer screen colonoscopy [place], [place] Start: 2006 Shingles Vaccine (1 of 2) Shingles Vaccine (1 of 2) [place] Start: 2006 SHINGRIX VACCINE (1 of 2) SHINGRIX VACCINE (1 of 2) [facility] Start: 2001 COLOGUARD (FIT-DNA) COLOGUARD (FIT-D NA) [facility] Start: 2001 Colonoscopy COLONOSCOPY [facility] Start: 2001 COLORECTAL CANCER SCREENING COLORECTAL CANCER SCREENING [facility] Start: [address] COLONOGRAPHY [facility] Start: 2001 DIABETES SCREEN DIABETES SCREEN [facility] Start: 2001 FECAL OCCULT BLOOD FECAL OCCULT BLOO D [facility] Start: 2001 LIPID SCREEN LIPID SCREEN [facility] Start: 2001 SIGMOIDOSCOPY SIGMOIDOSCOPY [facility] Start: 1996 Lipid panel Lipid screen [place], [place] Start: 1996 Mammography MAMMOGRAM [facility] Start: 1977 Screening for malign ant neoplasm of cervix Cervical cancer screen [place] Start: 12-12-1975 Urine microalbumin profile DTAP,TDAP,TD (1 - Tdap) [facility] Start: 1974 HEPATITIS C SCREENING HEPATITIS C [facility] Start: 1974 HIV SCREENING HIV SCREENING [facility] Start: 12-12-1971 HIV screening HIV screen [place], [place] Start: 1962 PNEUMOCOCCAL: 65+ (1 - PCV) PNEUMOCOCCAL: 65+ (1 - PCV) [facility] Start: 1955 Hepatitis C screening Hepatitis C [place], [place] Start: 1955 Screening for malign ant neoplasm of colon [facility] Immunizations Immunization Date Immunization Notes Care Provider [place] 12-19-2021 SARS-CoV-2 (COVID-19 ) [id number] Rubén NILL [facility] 04-04-2021 SARS-CoV-2 (COVID-19 ) mRNA BNT-162b2 vax Rubén NILL [facility] 12-16-2020 SARS-CoV-2 (COVID-19 ) mRNA BNT-162b2 vax Rubén NILL [facility] 11-28-2020 SARS-CoV-2 (COVID-19 ) mRNA BNT-162b2 vax Rubén NILL [facility] 06-05-2018 influenza virus vaccine, unspecified formulation Shirin Shawn SCOTT-[facility] PRES[facility] Work Phone: [facility] 06-01-2018 tetanus toxoid, redu tu diphtheria toxoid, and acellular pertussis vaccine, adsorbed [place], [place] Payers Date Payer Category Payer Self-pay [id number] 2023 Medicare [id number] 2022 Medicare [id number] 2019 Unknown [id number] 2019 Unknown [employer] M [employer] CHUCK - EXCHANGE [id number] 2019-Present [phone] [address] [place] [address] [id number] 1959 Medicare [id number] 1959 Medicare [id number] 1959 [facility] Health Insurance [facility] [id number] 1955 Unknown [id number] 2.16.840.1.280852.3.579.2.6 47 1955 Unknown [id number] 2.16.840.1.465913.3.579.2.6 47 1955 Unknown [id number] 2.16.840.1.562404.3.579.2.1 73 1955 Unknown [id number] 2.16.840.1.087959.3.579.2.1 73 1955 Unknown [id number] 2.16.840.1.762068.3.579.2.5 93 1955 Unknown [id number] 2.16.840.1.720789.3.579.2.5 93 1956 Unknown [id number] 2.16.840.1.039988.3.579.2.5 93 1956 Unknown [id number] 2.16.840.1.102487.3.579.2.5 93 1956 Unknown [id number] 2.16.840.1.199317.3.579.2.5 93 1956 Unknown [id number] 2.16.840.1.525536.3.579.2.5 93 1956 Unknown [id number] 2.16.840.1.857968.3.579.2.5 93 1956 Unknown [id number] 2.16.840.1.240425.3.579.2.1 259 1955 Unknown [id number] 2.16.840.1.417446.3.579.2.1 259 1956 Unknown [id number] 2.16.840.1.073530.3.579.2.1 259 1956 Unknown [id number] 2.16.840.1.405017.3.579.2.1 259 1956 Unknown [id number] 2.16.840.1.687259.3.579.2.1 259 1956 Unknown [id number] 2.16.840.1.155139.3.579.2.1 259 1956 Unknown [id number] 2.16.840.1.664562.3.579.2.1 259 1956 Unknown [id number] 2.16.840.1.976883.3.579.2.7 27 1955 Unknown [id number] 2.16.840.1.654913.3.579.2.7 27 Medicare Medicare [id number] Unknown [id number] Unknown Unknown HCAP/HFA/FAP Active [id number] Unknown [id number] 2.16.840.1.804506.3.579.2.5 31 Social History Date Type Detail Facility Start: 05-31-2018 End: 02-05-2024 Tobacco smoking status NHIS Former smoker [facility] Start: 05-31-2018 Alcohol intake Ex-drinker (finding) [place], [place] Start: 1955 Sex Assigned At Not on file [place], [place] Exposure to SARS-CoV -2 (event) Not sure [place], [place] Start: 1955 Sex Assigned At Female F [facility] Start: 10-23-2022 Tobacco smoking stat us SDIS Smokes tobacco daily [facility] History of tobacco use Cigarette Smoker C [facility] Start: 10-23-2022 End: 12-17-2023 Cigarettes smoked current (pack per day) - Reported 1 [facility] Start: 10-23-2022 Tobacco use and exposure User of smokeless tobacco [facility] Start: 10-23-2022 End: 12-17-2023 Alcohol intake Lifetime non-drinker (finding) [facility] Start: 10-23-2022 End: 12-17-2023 Tobacco use panel [facility] Start: 10-23-2022 Tobacco Comment [facility] Start: 09-21-2022 Tobacco smoking stat [facility] Never smoked tobacco [facility] Start: 04-27-2023 Alcohol Comment Caffine intake : 2-3 cups per day, coffee; tea [facility] Functional Status Date Assessment Result Facility 02-05-2024 Functional Status N/A [facility] [place] Clinical Notes 08-31-2021 to 02-06-2024 Shirin Escobar APRN-ARTURO - 12/17/2023 11:05 AM EDTFClaire carrera MD - 10/23/2022 11:34 AM EDT Note Date & Type Note Facility 02-06-2024 Evaluation + Plan note Diagnostic Tests Pendingvon Willebrand Factor (vWF) Ag 02/06/24Lupus Anticoagulant 02/06/24vWF Activity 02/06/24 [facility] 02-05-2024 Note General Surgery Offi ce/Clinic Note Chief Complaint consultation for positive occult stool HPI Staff 68 year old female presents on consultation from Dr. Valle for positive occult stool. Denies abdominal or rectal pain. No rectal bleeding or change in bowel habits. Denies nausea or vomiting. No unexplained weight loss. Previous colonoscopy completed greater than 10 years ago and reported normal per patient- operative report could not be found. History of Present Illness 68 yo female with h/o GERD, lumbar disc disease, multinodular goiter, Raynaud's phenomenon, referred for positive fecal occult blood test; patient denies change in bms or gross blood in stools, no abd complaints; abd operations significant for appendectomy and SHEILA with BSO; no asa or NSAID use; vapes daily; no fmhx of GI malignancy or IBD. Review of Systems PHQ Score Initial Depression Screen Score: 0 SCORE ROS - Provider Constitutional: no fever, no sweats, no weight loss. Eyes: no glasses, no blurred vision, no visual loss. ENMT: no dentures, no hoarseness, no swallowing difficulties, no hearing loss, no ear infection(s), no nose bleeds. Cardiovascular: normal blood pressure, no chest pain, regular heartbeat, no heart murmur. Respiratory: no shortness of breath, no cough, no asthma, no wheezing. Gastrointestinal: no nausea, no vomiting, no diarrhea, no constipation, no blood in stool, no change in bowel habits, no abdominal pain, no hepatitis. Genitourinary: no kidney stones, no urine infection, no dysuria. Musculoskeletal: no pain, no weakness. Skin: no changing moles, no rash, no skin lumps. Neurologic: no seizures, no epilepsy, no headache. Psychiatric: no emotional or psychiatric problem. Heme/Lymph: no bleeding problems, no anemia, no blood clots, no transfusions. Allergy/Immunologic: no swollen lymph nodes/glands, no IV drug abuse. Other: Additional ROS info: Except as noted in the above Review of Systems and in the History of Present Illness, all other systems have been reviewed and are negative or noncontributory. Physical Exam Vitals & Measurements HR: 72(Peripheral) RR: 16 BP: 132/84 HT: 65 in HT: 165 cm WT: 60.8 kg WT: 134.041 lb BMI: 22.33 HEENT: normal conjunctiva, sclera clear, no scleral icterus, EOM intact, PERRLA, oral mucosa moist without lesions. Neck: trachea midline, no mass, symmetric, no thyromegaly or nodules, no adenopathy Respiratory: lungs CTA, respirations non labored. Cardiovascular: regular rate and rhythm, no murmur, no pedal edema or varicosities. Gastrointestinal: soft, non distended, no tenderness, no masses, no palpable hernias, diastasis recti no, no hepatosplenomegaly; normal bs Lymphatic: no cervical adenopathy, no supraclavicular adenopathy. Musculoskeletal: normal gait, digits and nails without infection, nodes, cyanosis, clubbing. Skin: no rashes, no lesions, no ulcers, no subcutaneous nodules, induration. Psychiatric/Neuro: oriented to time, place, person, judgement normal, affect appropriate for age, insight intact, no focal deficits. Tests: labs reviewedreview of old records completed , Discussed surgical options, risks, and possible complications with patient. Assessment/Plan 1. Positive fecal occult blood test (R19.5: Other fecal abnormalities) plan colonoscopy under anesthesia, informed consent obtained. Follow-up No qualifying data available Problem List/Past Medical History Ongoing Bilateral hearing loss Cervical disc disorder Complex regional pain syndrome type I Gastroesophageal reflux disease Lumbar disc disease Multinodular goiter Occult blood positive stool Osteopenia Positive fecal occult blood test Raynaud's phenomenon Renal cyst, left Varicose vein of leg Historical No qualifying data Procedure/Surgical History Appendectomy, Carpal tunnel release, Colonoscopy, Re-release of carpal tunnel, SHEILA BSO - Total abdominal hysterectomy and bilateral salpingo-oophorectomy. Medications amitriptyline 50 mg Tab, 50 mg= 1 tab(s), Oral, Once a day (at bedtime) biotin doxepin 10 mg Cap, 10 mg= 1 cap(s), Oral, Daily latanoprost 0.005% ophthalmic emulsion, 1 drop(s), Eye-Both, qPM Multi Vitamins oral tablet, 1 tab(s), Oral, Daily Pepcid 40 mg Tab, 40 mg= 1 tab(s), Oral, BID Protonix 40 mg Tab-DR, 40 mg= 1 tab(s), Oral, Daily tiZANidine 4 mg Tab, 8 mg= 2 tab(s), Oral, Bedtime Allergies Cipro (Patient reported problems) codeine (Gastrointestinal upset) Social History Alcohol - Denies Alcohol Use, 02/05/2024 Substance Abuse Current, Marijuana, Daily, 02/05/2024 Tobacco Former smoker, quit more than 30 days ago Tobacco Use:. Current vaping or e-cigarette use Smokeless Tobacco Use:. Cigarettes, Vaping, 1 per day. Started age 16.0 Years., 02/05/2024 Family History Diabetes mellitus type 2: Father and Sister. Hypertension: Father. Immunizations Vaccine Date Status SARS-CoV-2 (COVID-19) [id number] 12/19/2021 Recorded SARS-CoV-2 ( (more content not included)... [facility] Comment on above: Result Comment: Elec tronically Signed By: MAR CLARKE, Rubén Robbins\Date and Time Signed: 02/05/24 14:40 EST 12-17-2023 History of Present illness Narrative Lesions: Location: arms and legs [...] limited to risks of scarring, darker or produce weigher pigmentary changes, recurrence, incomplete removal and infection. [...] any new/changing lesions documented in this encounter [facility] 10-23-2022 Note HNO ID: [id number] Author: Claire Morales MD Service: ? Author [...] Bariatric Surgery cc: Referring provider Anamika Valle [facility] [address] Medical Decision Making: Problems: Low: Stable chronic illness Data: Independent interpretation of test from other physician/QHCP Medical Decision Making Level: 3 - Low [facility] 10-23-2022 History of Present illness Narrative GENERAL SURGERY NEW PATIENT CONSULTATION [...] HISTORY: GERD DeQuervain's tenosynovitis PAST SURGICAL HISTORY: Danelle vallesy FAMILY HISTORY: No family history on file. [...] Surgery cc: Referring provider Anamika Valle [address] [place] [phone] Medical Decision Making: Problems: Low: Stable chronic illness Data: Independent interpretation of test from other physician/QHCP Medical Decision Making Level: 3 - Low documented in this encounter [facility] 08-31-2021 Note OPERATIVE NOTE OPERATION DATE: 08/31/2021 PREOPERATIVE DIAGNOSIS: Acute appendicitis. POSTOPERATIVE DIAGNOSIS: Acute appendicitis. PROCEDURE PERFORMED: Laparoscopic appendectomy. SURGEON: Elisabeth Rehman M.D. CHORAL TEACHER: PINA Corona ANESTHESIA: General, 0.5% Marcaine for [...] taken to the PACU in fair condition. [facility] Signed and Approved by: DR ELISABETH REHMAN . 09/15/2021 06:33:00 [facility] Evaluation + Plan note No data available for this section [facility] [place] Evaluation note No assessment inform ation available [facility] Work Phone: Evaluation note Diagnosis Ventral hernia without obstruction or gangrene- Primary Ventral hernia, unspecified, without mention of obstruction or gangrene documented in this encounter [facility] note* Diagnosis Other nonthrombocytopenic purpura (CMS/HCC)- Primary Actinic keratosis [facility] Dis[facility] No data available for this section [facility] Progress note No data available for this [facility] Family History No Family History Records FoundNo Family History Records FoundNo Family History Records FoundNo Family History Records FoundNo Family History Records FoundNo Family History Records Found No data available for this section No data available for this section No Family History Records FoundNo Family History Records Found Advance Directives No Advanced Directives Records FoundDocuments on File Type Date Recorded Patient Bronc Buster Expl anation Advance Directives and Living Will Power of Game Show Host Advance Directive Response Recorded Date/ Time Advance Directives No June 06, 018 3:52pm Chief Complaint and Reason for Visit Chief Complaint Screening Additional Source Comments INFORMATION SOURCE (unrecogn ized section and content) DATE CREATED AUTHOR 03/21/2018 [facility] DATE CREATED AUTHOR AUTHOR'S ORGANIZ ATION 10/14/2019 [facility] DATE CREATED AUTHOR AUTHOR'S ORGANIZ ATION 04/27/2022 [facility] DATE CREATED AUTHOR AUTHOR'S ORGANIZ ATION 10/27/[address] [facility] DATE CREATED AUTHOR AUTHOR'S ORGANIZ ATION 12/18/2023 [facility] EPIC DATE CREATED AUTHOR AUTHOR'S ORGANIZ ATION 01/03/2024 [facility] DATE CREATED AUTHOR AUTHOR'S ORGANIZ ATION 02/08/2024 [facility] DATE CREATED AUTHOR AUTHOR'S ORGANIZ ATION 02/10/2024 [facility] Care Teams (unrecognized sec tion and content) Team Status: Active Member Role Status Dates Anamika Valle MD Primary Care Provider Active Team Status: Inactive Member Role Status Dates Anamika Valle MD Primary Care Provider Active Referral Self Attending Provider Active External Grinder Relationship Specialty Start Date End Date Anamika Valle MD PCP - General 8/9/05 Anamika Valle MD [address] [place] [facility] [place] [address] Referring Family Medicine 10/05/22 External Grinder Relationship Specialty Start Date End Date Anamika Valle MD [address] [place] [address] PCP - General Family Medicine 09/21/22 External Grinder Relationship Specialty Start Date End Date Anamika Valle MD [address] [place] [address] PCP - General Family Medicine 09/21/22 Team [...] may be documented in an alternate section No data available for this section No data available for this section Source Comments (unrecognize d section and content) In the event this informatio n is protected by the Federal Confidentiality of Alcohol and Drug Abuse Patient Records regulations: The Federal rules restrict any use of the information to criminally investigate or prosecute any alcohol or drug abuse patient.[facility] Reason for Visit (unrecogniz ed section [...] BE BASED ON THE PRIMARY CLINICAL RECORDS. [facility]. provides no warranty or guarantee of the accuracy or completeness of information in this document.
== END 2024-02-10 08:55 | disposition home or self-care (01) ==
LOC: US 08:54
PROVIDERS: PCP Family Medicine; Visit Provider Internal Medicine Hematology & Oncology
DX: R23.3 Spontaneous ecchymoses (principal)
CPT/HCPCS: 76705

== ENCOUNTER 2024-02-27 07:49 | Outpatient (RCR) | payer MEDICARE, SELFPAY ==
--- OUTSIDE RECORDS SUMMARY | 2024-02-27 08:12 | XMS_ITS | CCD ---
Author Organization [facility] Care Team Providers Care Supervisor Audit Clerks Name Role Phone PHYSICIAN, DEFAULT Unavailable Unavailable PHYSICIAN, DEFAULT Unavailable Unavailable JANINE VALLELAS Unavailable Unavailable JI, ABDULAZIM Unavailable Unavailable JI, ABDULAZIM Unavailable Unavailable JANINE VALLELAS Unavailable Unavailable ANAMIKA VALLE Unavailable Unavailable TN Unavailable Unavailable JI, ABDULAZIM Unavailable Unavailable TN Unavailable Unavailable BOUCHRA HARPER Unavailable Unavailable ANAMIKA VALLE Referring Unavailable ANAMIKA VALLE Primary Care Unavailable ANAMIKA VALLE Referring Unavailable ANAMIKA VALLE Primary Care Unavailable Anamika Valle Primary Care Provider MD Anamika Valle Primary Care Provider [phone] Self, Referral Attending Provider Unavailable DR ANAMIKA VALLE Admitting Unavailable MAKAYLA, DR WILLSON Attending Unavailable MAKAYLA, DR WILLSON Primary Care Unavailable DR ANAMIKA VALLE Consulting Unavailable DR Danna Castle Consulting Unavailable DR ANAMIKA VALLE Primary Care Unavailable WIERICKA, DR ELISABETH Irwin Admitting Unavailable WIECEKatelin, DR ELISABETH Irwin Attending Unavailable WIERICKA, DR ELISABETH Irwin Consulting Unavailable DR Danna Castle Consulting Unavailable DEXTER SAUNDERS Consulting Unavailable [...] Care Unavailable MAKAYLA, DR WILLSON Consulting Unavailable MARQUES, DR ENIO Vasquez Consulting Unavailable DESTINI DOOLEY Admitting Unavailable DESTINI DOOLEY Attending Unavailable MAKAYLA, DR WILLSON Primary Care Unavailable DESTINI DOOLEY Consulting Unavailable Anamika Valle MD Primary Care Provider [phone] Anamika Valle MD Unavailable ANAMIKA VALLE Referring Unavailable ANAMIKA VALLE Primary Care Unavailable CLAIRE MORALES Attending Unavailable MD Anamika Valle Primary Care Provider Self, Referral Attending Provider Unavailable Anamika Valle MD Primary Care Provider [phone] MONIE NAVARRO Attending Unavailable MONIE NAVARRO [...] Admitting Unavailable Anamika Valle Primary Care Physician GRANT, GEORGES Attending Unavailable GRANT, GEORGES Admitting Unavailable Rubén MANUEL Attending Unavailable Anamika Valle Referring Unavailable GRANT, GEORGES Attending Unavailable GRANT, GEORGES Admitting Unavailable Allergies Allergy Classification Reported Allergen(s) Allergy Type Date of Onset Reaction(s) Facility (12 sources) Codeine; Translations: [CODEINE] Drug Allergy 11-30-19 05 Nausea Only, Gastrointestinal irritation (disorder) [facility] Repository (1 source) Etodolac Drug Allergy 03-21-19 17 [facility] Repository (1 source) no latex allergy [Other] Propensity to adverse reactions 11-30-19 05 [facility] (4 sources) OTHER; Translations: [OTHER] Propensity to adverse reactions (disorder) 11-30-19 05 [facility] Repository (3 sources) Etodolac Allergy to substance 09-22-19 23 [facility] (3 sources) Sulfonamides (Antibiotic) Drug Allergy 07-14-19 22 Hives [facility] (1 source) Unable to Assess Drug allergy (disorder) 10-07-19 19 [facility] Repository (3 sources) Ciprofloxacin; Translations: [ciprofloxacin] Drug Allergy Patient reported problems (finding) [facility] General Surgery [place] Medications Current Medications Medication Drug Class(es) Dates [...] oral capsule (2 sources) Cephalosporin Antibacterial Start: 019 take 1 capsule by mouth three times [...] Start: 01-21-2023 take 2 tablets by mo [facility] at bedtime tiZANidine (Zanaflex) 4 MG tablet [...] on above: Take 1 tablet by diego every 12 hours. estrogens, conjugated (assisted) 0.625 mg oral tablet (1 source) Estrogen [...] Test Name Value Interpretation Reference Range Facility Lupus Anticoagon 02-10-2024 aPTT.lupus sensitive Coag (PPP) [Time] 29.4 second(s) Invalid Interpretation Code 0.0-43.5 [facility] Comment on above: Performed By: #### 2 [id number] #### [facility] [address] [place] [address] dRVVT Coag (PPP) [Time] 32.8 second(s) Invalid Interpretation Code 0.0-47.0 [facility] Comment on above: Performed By: #### 2 [id number] #### [facility] [address] [place] [address] Lupus anticoagulant two screening tests W Reflex Coag (PPP) [Interp] Comment: Invalid Interpretation Code [facility] Comment on above: Result Comment: No l upus anticoagulant was detected. Performed at: [address] [id number] MD Andrew Wilburn Performed By: #### 2 [id number] #### [facility] [address] [place] [address] vWF Activityon 02-10-2024 vWf ristocetin cofactor act actual/normal Platelet aggregation (PPP) [Relative time] 346 % High 50-200 [facility] Comment on above: Result Comment: Perf ormed at: [address] [id number] MD Andrew Wilburn Performed By: #### 2 [id number] #### [facility] [address] [place] [address] von Willebrand Factor (vWF) Agon 02-10-2024 vWf Ag actual/normal IA (PPP) [Relative mass conc] 368 % High 50-200 [facility] Comment on above: Result Comment: VWF may elevate in normal , in samples drawn from patients (particularly children) who are visibly stressed at the time of phlebotomy, as acute phase reactants, or in response to certain drug therapies such as DDAVP. These and other situations may increase levels compared to baseline values. For these reasons, it may be necessary to repeat testing to make a diagnosis of VWD. This test was developed and its performance characteristics determined by [employer]. It has not been cleared or approved by the Food and Drug Administration. Performed at: [address] [id number] MD Andrew Wilburn Performed By: #### 2 [id number] #### [facility] [address] [place] [address] COAGULATIONOrdered By: Jeffrey Nelson on 02-06-2024 Platelet function (closure time) collagen+EPINEPHrine induced (Bld) [Time] 96 s Normal 70 - 138 second(s) [facility] Comment on above: Interpretive Data: N ormal ASA vWD Glanzmann s Thrombasthenia ------- ------ ------- COL/EPI Normal Abnormal Abnormal Abnormal Col/ADP Normal Normal Abnormal Abnormal Plt Function Assayon Platelet function (closure time) collagen+EPINEPHrine induced (Bld) [Time] 96 second(s) Normal 70-138 [facility] Comment on above: Result Comment: Norm al ASA vWD Glanzmann???s Thrombasthenia ------- ------ ------- COL/EPI Normal Abnormal Abnormal Abnormal Col/ADP Normal Normal Abnormal Abnormal Performed By: #### 1 [id number] #### [facility] [address] [place] [address] Reference Laboratory Testing Ordered By: Paulette Frye on 02-06-2024 Test Code 930713 1 Invalid Interpretation Code [facility] Test Name von Willebrand Invalid Interpretation Code [facility] Ambulatory Visit Summaryon 1 04-06-2023 Ambulatory Visit [...] for choosing us for your care. Normal [facility] Provider Letteron 01-10-2024 Provider Letter Provider Letter January 10, 2024 XENA EWING [address] [place] [address] [address] [place], [place] [id number] : 1955 Dear Ms. Ewing, We have been trying to reach you with no success regarding a referral from Dr Valle. It is important that you return our call upon receiving this letter. Also, at the time of your call, please provide us with your current information. Thank you for your prompt attention to this matter. Sincerely, [facility] General Surgery [phone] Normal [facility] MM screening mammo BI w/CADo n 12-27-2023 MM screening mammo BI w/CAD [place] [address] Mammography Report Signed Patient: Xena Ewing MR#: [id number] : 1955 Acct:[id number] Age/Sex: 68 / F ADM Date: 12/27/23 Loc: [place] Room: Type: [facility] Attending Dr: Referral Self Copies to: Anamika [...] Jr., D.O.12/27/2023 1:07 PM Dictation Location: [facility] Transcribed By: PINO 12/27/23 1307 Dictated By: Blake Schmidt Jr, DO 12/27/23 1304 Signed By: 12/27/23 1307 Normal [facility] No Panel Informationon 12-16 [facility] CNOV 10-23-2022 CNOV Office Visit (GENBMI ) XENA EWING ([id number]) 1955 F [facility] Date Time Provider Department 10/23/22 11:30 AM [...] Surgery cc: Referring provider Anamika Valle [address] [facility] [address] Medical Decision Making: Problems: Low: Stable chronic illness Data: Independent interpretation of test from other physician/QP Medical Decision Making Level: 3 - Low Referring Provider: ANAMIKA VALLE [[id number]] Allergies As of Date: 10/23/2022 Noted Allergy [...] ANXIETY - (more content not included)... Normal [facility] PAP ACOG PANEL 2: 30 to 65on 04-26-2022 . . Normal [facility] Comment on above: Result Comment: Perf ormed at: WB Performed By: #### 4 [id number] #### [facility] [address] [address] [address] Kayy Virgen Age Gdln ACOG Testing 30-65 Normal [facility] Comment on above: Performed By: #### 4 [id number] #### [facility] [address] [address] [address] Kayy Virgen DIAGNOSIS: Comment Normal [facility] Comment on above: Result Comment: UNSA TISFACTORY FOR EVALUATION. Performed at: WB Performed By: #### 4 [id number] #### [facility] [address] [address] [address] Kayy Virgen HPV Aptima Negative Normal Negative [facility] Comment on above: Result Comment: This nucleic acid amplification test detects fourteen high-risk HPV types (16,18,31,33,35,39,45,51,52,56,58,59,66,68) without differentiation. Performed at: =G Performed By: #### 4 [id number] #### [facility] [address] [place] [address] Dr. Kayy Virgen HPV Genotype Reflex Comment Normal [facility] Comment on above: Result Comment: Crit eria not met, HPV Genotype not performed. Performed at: WB Performed By: #### 4 [id number] #### [facility] [address] [place] [address] Dr. Kayy Virgen Methodology: Comment Normal [facility] Comment on above: Result Comment: This liquid based ThinPrep(R) pap test was screened with the use of an image guided system. Performed at: WB Performed By: #### 4 [id number] #### [facility] [address] [place] [address] Dr. Kayy Virgen Note: Comment Normal [facility] Comment on above: Result Comment: The Pap smear is a screening test designed to aid in the detection of premalignant and malignant conditions of the uterine cervix. It is not a diagnostic procedure and should not be used as the sole means of detecting cervical cancer. Both false-positive and false-negative reports do occur. . Performed at: WB Performed By: #### 4 [id number] #### [facility] [address] [place] [address] Dr. Kayy Virgen Performed by: Comment Normal [facility] Comment on above: Result Comment: Arturo Peters, Personal Vehicle Advisor (ASCP) Performed at: [facility] Performed By: #### 4 [id number] #### [facility] [address] [place] [address] Dr. Kayy Virgen QC reviewed by: Comment Normal [facility] Comment on above: Result Comment: Pepe Cordova, Supervisory Personal Vehicle Advisor (ASCP) Performed at: WB Performed By: #### 4 [id number] #### [facility] [address] [place] [address] Dr. Kayy Virgen Recommendation: Comment Normal [facility] Comment on above: Result Comment: Sugg est follow up as clinically appropriate. Performed at: WB Performed By: #### 4 [id number] #### [facility] [address] [address] [address] Kayy Virgen Specimen adequacy: Comment Normal [facility] Comment on above: Result Comment: Spec imen processed and examined but unsatisfactory for evaluation of epithelial abnormality because of insufficient cellularity. Performed at: WB Performed By: #### 4 [id number] #### [facility] [address] Kayy Virgen US THYROIDon 01-05-2022 US [...] TR 4 nodule, previously biopsied TI-RADS: The [employer] TI-RADS committee's white paper recommendations for thyroid lesions classified as TR3 (mildly suspicious) are listed below: > 1.5 cm. Follow-up ultrasound in 1, 3, and 5 years. > 2.5 cm. FNA. J. Am Anais Radiol 2017;14:587-595. Electronically authenticated by: ENIO MOHAN Date: 2022-01-05 15:25 Normal [facility] T4, T3U, FTI LABCORPon 11-10 Free Thyroxine Index 2.0 Normal 1.2-4.9 [facility] Comment on above: Performed By: #### T HYLC ####[facility] [address] [address]Dr. Kayy Virgen T3 Uptake 26 % Normal 24-39 [facility] Comment on above: Performed By: #### T HYLC ####[facility] [address] [id number]. Kayy Virgen T4 [Mass/Vol] 7.5 ug/dL Normal 4.5-12.0 [facility] Comment on above: Performed By: #### T HYLC ####[facility] [address] [address]Dr. Kayy Virgen CBC AUTO DIFFon 11-09-2021 BASO # 0.1 103/ul Normal 0.0-0.1 [facility] Comment on above: Performed By: #### C BC ####[facility] [address] [id number]. Kayy Param Basophils/100 WBC (Bld) 2.1 % Critically high 0.2-2.0 [facility] Comment on above: Performed By: #### C BC ####[facility] [address] [place], [place] [address]Dr. Kayy Param EO # 0.2 103/ul Normal 0.0-0.7 [facility] Comment on above: Performed By: #### C BC ####[facility] [address] [place], [place] [address]Dr. Kayy Virgen Eosinophils/100 WBC (Bld) 5.1 % Normal 0.9-7.0 [facility] Comment on above: Performed By: #### C BC ####[facility] [address] [place], [place] [address]Dr. Kayy Virgen Erythrocyte distribution width (RBC) [Ratio] 14.6 % Normal 11.0-15.0 [facility] Comment on above: Performed By: #### C BC ####[facility] [address] [place], [place] [address]Dr. Kayy Virgen Hematocrit (Bld) [Volume fraction] 38.5 % Normal 36.0-48.0 [facility] Comment on above: Performed By: #### C BC ####[facility] [address] [place], [place] [address]Dr. Kayy Virgen Hemoglobin (Bld) [Mass/Vol] 12.4 g/dL Normal 12.0-16.0 [facility] Comment on above: Performed By: #### C BC ####[facility] [address] [id number]. Shereesamia Param IG # 0.01 10e3/ul Normal 0.00-0.03 [facility] Comment on above: Performed By: #### C BC ####[facility] [address] [address]Dr. Kayy Virgen IG % 0.2 % Normal 0.0-0.5 [facility] Comment on above: Performed By: #### C BC ####[facility] [address] [address]Dr. Kayy Virgen LYMPH # 1.5 103/ul Normal 1.2-3.8 [facility] Comment on above: Performed By: #### C BC ####[facility] [address] [address]Dr. Kayy Virgen Lymphocytes/100 WBC (Bld) 33.7 % Normal 20.5-60.0 [facility] Comment on above: Performed By: #### C BC ####[facility] [address] [address]Dr. Kayy Virgen MANUAL DIFF REQ NO Normal [facility] Comment on above: Performed By: #### C BC ####[facility] [address] [address]Dr. Kayy Virgen MCH (RBC) [Entitic mass] 26.7 pg Normal 26.7-34.0 [facility] Comment on above: Performed By: #### C BC ####[facility] [address] [address]Dr. Shereesamia Virgen MCHC (RBC) [Mass/Vol] 32.2 g/dL Normal 29.9-35.2 [facility] Comment on above: Performed By: #### C BC ####[facility] [address] [address]Dr. Kayy Virgen MCV (RBC) [Entitic vol] 82.8 fL Normal 81.0-99.0 [facility] Comment on above: Performed By: #### C BC ####[facility] [address] [address]Dr. Kayy Virgen MONO # 0.5 103/ul Normal 0.3-0.8 [facility] Comment on above: Performed By: #### C BC ####[facility] [address] [address]Dr. Kayy Virgen Monocytes/100 WBC (Bld) 11.9 % Normal 1.7-12.0 [facility] Comment on above: Performed By: #### C BC ####[facility] [address] [address]Dr. Kayy Virgen NEUT # 2.0 103/ul Normal 1.4-6.5 [facility] Comment on above: Performed By: #### C BC ####[facility] [address] [address]Dr. Kayy Virgen Neutrophils/100 WBC (Bld) 47.0 % Normal 43.0-75.0 [facility] Comment on above: Performed By: #### C BC ####[facility] [address] [place], [place] [address]Dr. Kayy Virgen Platelet mean volume (Bld) [Entitic vol] 9.7 fL Normal 9.5-13.5 [facility] Comment on above: Performed By: #### C BC ####[facility] [address] [address]Dr. Kayy Virgen PLT 269 103/ul Normal 150-450 [facility] Comment on above: Performed By: #### C BC ####[facility] [address] [address]Dr. Kayy Virgen RBC 4.65 106/ul Normal 4.20-5.40 [facility] Comment on above: Performed By: #### C BC ####[facility] [address] [address]Dr. Kayy Virgen WBC 4.3 103/ul Normal 4.0-11.0 [facility] Comment on above: Performed By: #### C BC ####[facility] [address] [address]Dr. Kayy Virgen GLYCOHEMOGLOBIN A1Con 2021 ADA RECOMMENDATION SEE BELOW Normal [facility] Comment on above: Result Comment: ADA RECOMMENDED LIMIT 4.0 - 6.0 ADA THERAPEUTIC TARGET < 7.0 ACTION SUGGESTED > 7.0 Performed By: #### A 1C #### [facility] [address] [place] [address] Dr. Kayy Virgen Glucose [Mass/Vol] 117 mg/dL Normal [facility] Comment on above: Performed By: #### A 1C #### [facility] [address] [place] [address] Dr. Kayy Virgen HbA1c (Bld) [Mass fraction] 5.7 % Normal 4.5-6.2 [facility] Comment on above: Performed By: #### A 1C #### [facility] [address] [place] [address] Dr. Kayy Virgen IRONon 11-09-2021 Iron [Mass/Vol] 100.0 ug/dL Normal 50.0-170.0 [facility] Comment on above: Performed By: #### I STEPHANI #### [facility] [address] [place] [address] Dr. Kayy Virgen PROF 14(COMP METB)on 022 Albumin [Mass/Vol] 4.0 g/dL Normal 3.4-5.0 [facility] Comment on above: Performed By: #### C MERRILL, TSH #### [facility] [address] [place] [address] Dr. Kayy Virgen Albumin/Globulin [Mass ratio] 1.1 {ratio} Normal [facility] Comment on above: Performed By: #### C MERRILL, TSH #### [facility] [address] [place] [address] Dr. Kayy Virgen ALP [Catalytic activity/Vol] 109 U/L Normal 46-116 [facility] Comment on above: Performed By: #### C MERRILL, TSH #### [facility] [address] [place] [address] Dr. Kayy Virgen ALT [Catalytic activity/Vol] 26 U/L Normal 14-59 [facility] Comment on above: Performed By: #### C MP, TSH #### [facility] [address] [address] [address] Kayy Virgen Anion gap [Moles/Vol] 11.2 mmol/L Normal [facility] Comment on above: Performed By: #### C MP, TSH #### [facility] [address] [address] [address] Kayy Virgen AST [Catalytic activity/Vol] 58 U/L Critically high 15-37 [facility] Comment on above: Performed By: #### C MP, TSH #### [facility] [address] [place] [address] Dr. Kayy Virgen Bilirubin [Mass/Vol] 0.4 mg/dL Normal 0.2-1.0 [facility] Comment on above: Performed By: #### C MP, TSH #### [facility] [address] [address] [address] Kayy Virgen Calcium [Mass/Vol] 9.8 mg/dL Normal 8.5-10.1 [facility] Comment on above: Performed By: #### C MP, TSH #### [facility] [address] [place] [address] Dr. Kayy Virgen Chloride [Moles/Vol] 103 mmol/L Normal 98-107 [facility] Comment on above: Performed By: #### C MP, TSH #### [facility] [address] [place] [address] Dr. Kayy Virgen CO2 [Moles/Vol] 28.2 mmol/L Normal 21.0-32.0 [facility] Comment on above: Performed By: #### C MP, TSH #### [facility] [address] [place] [address] Dr. Kayy Virgen Creatinine [Mass/Vol] 0.98 mg/dL Normal 0.55-1.02 [facility] Comment on above: Performed By: #### C MP, TSH #### [facility] [address] [place] [address] Dr. Kayy Virgen EGFR-AF SWEDISH >60 Normal >=60 [facility] Comment on above: Performed By: #### C MP, TSH #### [facility] [address] [address] [address] Kayy Virgen EGFR-NON AF SWEDISH 57 mL/min/1.73m2 Critically low >=60 [facility] Comment on above: Performed By: #### C MP, TSH #### [facility] [address] [address] [address] Kayy Virgen Globulin (S) [Mass/Vol] 3.8 g/dL Normal [facility] Comment on above: Performed By: #### C MP, TSH #### [facility] [address] [address] [address] Kayy Virgen Glucose [Mass/Vol] 102 mg/dL Normal 74-106 [facility] Comment on above: Performed By: #### C MP, TSH #### [facility] [address] [address] [address] Kayy Virgen Potassium [Moles/Vol] 4.4 mmol/L Normal 3.5-5.1 [facility] Comment on above: Performed By: #### C MP, TSH #### [facility] [address] [place] [address] Dr. Kayy Virgen Protein [Mass/Vol] 7.8 g/dL Normal 6.4-8.2 [facility] Comment on above: Performed By: #### C MP, TSH #### [facility] [address] [address] [address] Kayy Virgen Sodium [Moles/Vol] 138 mmol/L Normal 136-145 [facility] Comment on above: Performed By: #### C MP, TSH #### [facility] [address] [address] [address] Kayy Virgen Urea nitrogen [Mass/Vol] 22.0 mg/dL Critically high 7.0-18.0 [facility] Comment on above: Performed By: #### C MP, TSH #### [facility] [address] [address] [address] Kayy Virgen Urea nitrogen/Creatinine [Mass ratio] 22.4 mg/mg Normal [facility] Comment on above: Performed By: #### C MP, TSH #### [facility] [address] [place] [address] Dr. Kayy Virgen TSHon 11-09-2021 TSH 1.200 uIU/mL Normal 0.358-3.740 [facility] Comment on above: Performed By: #### C MP, TSH #### [facility] [address] [address] [address] Kayy Virgen AMYLASEon 08-31-2021 Amylase [Catalytic activity/Vol] 34 U/L Normal 25-115 [facility] Comment on above: Performed By: #### A MY, CMP, LIPA ####[facility] [address] [place], [place] [address]DrIrene Virgen CBC AUTO DIFFon 08-31-2021 BASO # 0.1 103/ul Normal 0.0-0.1 [facility] Comment on above: Performed By: #### C BC ####[facility] [address] [address]Dr. Kayy Virgen Basophils/100 WBC (Bld) 0.8 % Normal 0.2-2.0 [facility] Comment on above: Performed By: #### C BC ####[facility] [address] [place], [place] [address]Dr. Kayy Virgen EO # 0.0 103/ul Normal 0.0-0.7 [facility] Comment on above: Performed By: #### C BC ####[facility] L[address] [place], [place] [address]Dr. Kayy Virgen Eosinophils/100 WBC (Bld) 0.6 % Critically low 0.9-7.0 [facility] Comment on above: Performed By: #### C BC ####[facility] X[address] [place], [place] [address]Dr. Kayy Virgen Erythrocyte distribution width (RBC) [Ratio] 13.9 % Normal 11.0-15.0 [facility] Comment on above: Performed By: #### C BC ####[facility] [address] [address]Dr. Kayy Virgen Hematocrit (Bld) [Volume fraction] 37.7 % Normal 36.0-48.0 [facility] Comment on above: Performed By: #### C BC ####[facility] [address] [address]Dr. Kayy Virgen Hemoglobin (Bld) [Mass/Vol] 12.3 g/dL Normal 12.0-16.0 [facility] Comment on above: Performed By: #### C BC ####[facility] [address] [place], [place] [address]Dr. Kayy Virgen IG # 0.02 10e3/ul Normal 0.00-0.03 [facility] Comment on above: Performed By: #### C BC ####[facility] [address] [place], [place] [address]Dr. Kayy Virgen IG % 0.3 % Normal 0.0-0.5 [facility] Comment on above: Performed By: #### C BC ####[facility] [address] [place], [place] [address]Dr. Kayy Virgen LYMPH # 1.4 103/ul Normal 1.2-3.8 [facility] Comment on above: Performed By: #### C BC ####[facility] W[address] [place], [place] [address]Dr. Kayy Virgen Lymphocytes/100 WBC (Bld) 20.8 % Normal 20.5-60.0 [facility] Comment on above: Performed By: #### C BC ####[facility] [address] [place], [place] [address]Dr. Kayy Virgen MANUAL DIFF REQ NO Normal [facility] Comment on above: Performed By: #### C BC ####[facility] [address] [place], [place] [address]Dr. Kayy Virgen MCH (RBC) [Entitic mass] 26.9 pg Normal 26.7-34.0 [facility] Comment on above: Performed By: #### C BC ####[facility] [address] [id number]. Kayy Param MCHC (RBC) [Mass/Vol] 32.6 g/dL Normal 29.9-35.2 [facility] Comment on above: Performed By: #### C BC ####[facility] [address] [id number]. Kayy Virgen MCV (RBC) [Entitic vol] 82.5 fL Normal 81.0-99.0 [facility] Comment on above: Performed By: #### C BC ####[facility] [address] [place], [place] [address]Dr. Kayy Virgen MONO # 0.6 103/ul Normal 0.3-0.8 [facility] Comment on above: Performed By: #### C BC ####[facility] [address] [place], [place] [address]Dr. Kayy Virgen Monocytes/100 WBC (Bld) 8.8 % Normal 1.7-12.0 [facility] Comment on above: Performed By: #### C BC ####[facility] [address]we[address] [place], [place] [address]Dr. Kayy Virgen NEUT # 4.5 103/ul Normal 1.4-6.5 [facility] Comment on above: Performed By: #### C BC ####[facility] I[address] [place], [place] [address]Dr. Kayy Virgen Neutrophils/100 WBC (Bld) 68.7 % Normal 43.0-75.0 [facility] Comment on above: Performed By: #### C BC ####[facility] W[address] [place], [place] [address]Dr. Kayy Virgen Platelet mean volume (Bld) [Entitic vol] 10.2 fL Normal 9.5-13.5 [facility] Comment on above: Performed By: #### C BC ####[facility] [address] [place], [place] [id number]. Kayy Virgen PLT 265 103/ul Normal 150-450 [facility] Comment on above: Performed By: #### C BC ####[facility] [address] [place], [place] [address]Kc. Kayy Virgen RBC 4.57 106/ul Normal 4.20-5.40 [facility] Comment on above: Performed By: #### C BC ####[facility] [address] [place], [place] [address]UqIrene Virgen WBC 6.5 103/ul Normal 4.0-11.0 [facility] Comment on above: Performed By: #### C BC ####[facility] [address] [place], [place] [address]Bg. Kayy Virgen CT ABD/PELVIS WO CONon 08-31 [...] DANNA CASTLE Date: 2021-08-31 12:25 Normal [facility] ER URINE PROFILEon 2 Bilirubin Ql (U) Negative Normal NEGATIVE [facility] Comment on above: Performed By: #### E RUR #### [facility] [address] [place] [address] Dr. Kayy Virgen Clarity (U) CLEAR Normal CLEAR [facility] Comment on above: Performed By: #### E RUR #### [facility] [address] [place] [address] Dr. Kayy Virgen Color (U) LT. YELLOW Normal YELLOW [facility] Comment on above: Performed By: #### E RUR #### [facility] [address] [place] [address] Dr. Kayy CABRERA A micrscopic examination will be performed if indicated. Normal [facility] Comment on above: Performed By: #### E RUR #### [facility] [address] [place] [address] Dr. Kayy Virgen Glucose Ql (U) Negative Normal NEGATIVE [facility] Comment on above: Performed By: #### E RUR #### [facility] [address] [place] [address] Dr. Kayy Virgen Hemoglobin Ql (U) Negative Normal NEGATIVE [facility] Comment on above: Performed By: #### E RUR #### [facility] [address] [place] [address] Dr. Kayy Virgen Ketones Ql (U) Negative Normal NEGATIVE [facility] Comment on above: Performed By: #### E RUR #### [facility] [address] [place] [address] Dr. Kayy Virgen LEUKOCYTES Negative Normal NEGATIVE [facility] Comment on above: Performed By: #### E RUR #### [facility] [address] [place] [address] Dr. Kayy Virgen Nitrite Ql (U) Negative Normal NEGATIVE [facility] Comment on above: Performed By: #### E RUR #### [facility] [address] [place] [address] Dr. Kayy Virgen pH (U) 6.0 [pH] Normal 5-9 [facility] Comment on above: Performed By: #### E RUR #### [facility] [address] [address] [address] Kayy Virgen SPEC GRAVITY <=1.005 Abnormal 1.005-<=1.02 5 [facility] Comment on above: Performed By: #### E RUR #### [facility] [address] [address] [address] Kayy Virgen UA PROTEIN Negative Normal NEGATIVE/ TRACE [facility] Comment on above: Performed By: #### E RUR #### [facility] [address] [address] [address] Kayy Virgen UR MICRO IND NOT INDICATED Normal [facility] Comment on above: Performed By: #### E RUR #### [facility] [address] [place] [address] Dr. Kayy Virgen Urobilinogen Qn (U) 0.2 {Cuauhtemoc'U}/dL Normal 0.2 - 1. 0 [facility] Comment on above: Performed By: #### E RUR #### [facility] [address] [place] [address] Dr. Kayy Virgen LIPASEon 08-31-2021 Lipase [Catalytic activity/Vol] 73.0 U/L Normal 73.0-393.0 [facility] Comment on above: Performed By: #### A MY, CMP, LIPA #### [facility] [address] [address] [address] Kayy Virgen PROF 14(COMP METB)on 022 Albumin [Mass/Vol] 3.6 g/dL Normal 3.4-5.0 [facility] Comment on above: Performed By: #### A MY, CMP, LIPA ####[facility] [address] [place], [place] [address]Dr. Kayy Virgen Albumin/Globulin [Mass ratio] 0.9 {ratio} Normal [facility] Comment on above: Performed By: #### A MY, CMP, LIPA ####[facility] [address] [address]Dr. Kayy Virgen ALP [Catalytic activity/Vol] 98 U/L Normal 46-116 [facility] Comment on above: Performed By: #### A MY, CMP, LIPA ####[facility] [address] [address]Dr. Kayy Virgen ALT [Catalytic activity/Vol] 22 U/L Normal 14-59 [facility] Comment on above: Performed By: #### A MY, CMP, LIPA ####[facility] [address] [address]Dr. Kayy Virgen Anion gap [Moles/Vol] 12.6 mmol/L Normal Th e [facility] Comment on above: Performed By: #### A MY, CMP, LIPA ####[facility] [address] [address]Dr. Kayy Virgen AST [Catalytic activity/Vol] 44 U/L Critically high 15-37 [facility] Comment on above: Performed By: #### A MY, CMP, LIPA ####[facility] [address] [address]Dr. Kayy Virgen Bilirubin [Mass/Vol] 0.5 mg/dL Normal 0.2-1.0 [facility] Comment on above: Performed By: #### A MY, CMP, LIPA ####[facility] [address] [address]Dr. Kayy Virgen Calcium [Mass/Vol] 9.2 mg/dL Normal 8.5-10.1 [facility] Comment on above: Performed By: #### A MY, CMP, LIPA ####[facility] [address] [address]Dr. Kayy Virgen Chloride [Moles/Vol] 104 mmol/L Normal 98-107 [facility] Comment on above: Performed By: #### A MY, CMP, LIPA ####[facility] [address] [address]Dr. Kayy Virgen CO2 [Moles/Vol] 24.3 mmol/L Normal 21.0-32.0 [facility] Comment on above: Performed By: #### A MY, CMP, LIPA ####[facility] [address] [id number]. Kayy Virgen Creatinine [Mass/Vol] 0.87 mg/dL Normal 0.55-1.02 [facility] Comment on above: Performed By: #### A MY, CMP, LIPA ####[facility] [address] [address]Dr. Kayy Virgen EGFR-AF SWEDISH >60 Normal >=60 [facility] Comment on above: Performed By: #### A MY, CMP, LIPA ####[facility] [address] [address]Dr. Kayy Virgen EGFR-NON AF SWEDISH >60 Normal >=60 [facility] Comment on above: Performed By: #### A MY, CMP, LIPA ####[facility] [address] [address]Dr. Kayy Virgen Globulin (S) [Mass/Vol] 4.0 g/dL Normal [facility] Comment on above: Performed By: #### A MY, CMP, LIPA ####[facility] [address] [address]Dr. Kayy Virgen Glucose [Mass/Vol] 96 mg/dL Normal 74-106 [facility] Comment on above: Performed By: #### A MY, CMP, LIPA ####[facility] [address] [address]Dr. Kayy Virgen Potassium [Moles/Vol] 3.9 mmol/L Normal 3.5-5.1 [facility] Comment on above: Performed By: #### A MY, CMP, LIPA ####[facility] [address] [address]Dr. Kayy Virgen Protein [Mass/Vol] 7.6 g/dL Normal 6.4-8.2 [facility] Comment on above: Performed By: #### A MY, CMP, LIPA ####[facility] [address] [address]Dr. Kayy Virgen Sodium [Moles/Vol] 137 mmol/L Normal 136-145 [facility] Comment on above: Performed By: #### A MY, CMP, LIPA ####[facility] [address] [place], [place] [address]Mk. Kayy Virgen Urea nitrogen [Mass/Vol] 11.0 mg/dL Normal 7.0-18.0 [facility] Comment on above: Performed By: #### A MY, CMP, LIPA ####[facility] [address] [place], [place] [address]Fw. Kayy Virgen Urea nitrogen/Creatinine [Mass ratio] 12.6 mg/mg Normal [facility] Comment on above: Performed By: #### A MY, CMP, LIPA ####[facility] [address] [place], [place] [address]Ln. Kayy Virgen US THYROID FN ASP BXon 07-05 US THYROID FN ASP BX Begin Addendum #1 COLLECTED DATE/TIME: 06/29/2021 13:56 EDT Final Diagnosis Report for [facility] [place], [place] (A/B) RIGHT THYROID NODULE; FINE NEEDLE [...] 2. Pathology results are pending. Normal [facility] US THYROIDon 06-21-2021 US THYROID EXAMINATION: [...] nodule. Fine needle aspiration recommended TI-RADS: The [employer] TI-RADS committee's white paper recommendations for thyroid lesions classified as TR4 (moderately suspicious) are listed below: > 1.0 cm. Follow-up ultrasound in 1, 2, 3, and 5 years. > 1.5 cm. FNA. J. Am Anais Radiol 2017;14:[id number]. Electronically authenticated by: ENIO MOHAN Date: 2021-06-21 12:10 Normal [facility] US CAROTID ART BILon 24-2 022 US CAROTID ART ANDREAS EXAMINATION: US [...] DANNA CASTLE Date: 2021-06-08 13:16 Normal [facility] Blood Occult Stool Screen #1 on 10-13-2019 Date, Stool #1 [id number] [facility] [place], [place] Date, Stool #2 NOT REPORTED [facility] [place] Date, Stool #3 NOT REPORTED [facility] [place] Hemoglobin.gastrointe stinal spec 1 Ql (Stl) Negative NEGATIVE [facility] [place] Hemoglobin.gastrointe stinal spec 2 Ql (Stl) NOT REPORTED NEGATIVE [facility] [place] Hemoglobin.gastrointe stinal spec 3 Ql (Stl) NOT REPORTED NEGATIVE [facility] [place] Time, Stool #[address] [facility] [place] [place] Time, Stool #2 NOT REPORTED [facility] [place] Time, Stool #3 NOT REPORTED [facility] [place] Occult Blood, Fecalon 2019 Occult Blood 1 Negative Normal NEG [facility] Comment on above: Performed By: #### O BN #### [facility] [address] [place], [place] [phone] Customer Relations Consultant: Elisabeth Worthy MD Specimen 1 Date [facility] Comment on above: Performed By: #### O BN #### [facility] [address] [place], [place] [id number] Customer Relations Consultant: Elisabeth Worthy MD Specimen 1 Time 1199 [facility] Comment on above: Performed By: #### O BN #### [facility] [address] [place], [place] [phone] Customer Relations Consultant: Elisabeth Worthy MD Specimen 2 Date NOT REPORTED Normal [facility] Comment on above: Performed By: #### O BN #### [facility] [address] [place], [place] [phone] Customer Relations Consultant: Elisabeth Worthy MD Specimen 2 Time NOT REPORTED Normal [facility] Comment on above: Performed By: #### O BN #### [facility] [address] [place], [place] [phone] Customer Relations Consultant: Elisabeth Worthy MD Specimen 3 Date NOT REPORTED Normal [facility] Comment on above: Performed By: #### O BN #### [facility] [address] [place] [address] Customer Relations Consultant: Elisabeth Worthy MD Specimen 3 Time NOT REPORTED Normal [facility] Comment on above: Performed By: #### O BN #### [facility] [address] [place] [address] Customer Relations Consultant: Elisabeth Worthy MD Occult Blood 2 NOT REPORTED Normal NEG [facility] Comment on above: Performed By: #### O BN #### [facility] [address] [place] [address] Customer Relations Consultant: Elisabeth Worthy MD Occult Blood 3 NOT REPORTED Normal NEG [facility] Comment on above: Performed By: #### O BN #### [facility] [address] [place] [address] Customer Relations Consultant: Elisabeth Worthy MD Free Thyroxine Indexon 10-07 FTI Ratio 2.0 ug/dL Normal 1.4-3.1 [facility] Comment on above: Performed By: #### F TI, FE #### [address] [address] Customer Relations Consultant: Otoniel Ash MD #### TSH, LIPR, CP, GLYHGB, CDP #### [address] [place] [address] Customer Relations Consultant: Elisabeth Worthy MD T4 [Mass/Vol] 29.74 % Normal 22.5-37.0 [facility] Comment on above: Performed By: #### F TI, FE #### [address] [address] Customer Relations Consultant: Otoniel Ash MD #### TSH, LIPR, CP, GLYHGB, CDP #### [facility] [address] [place] [address] Customer Relations Consultant: Elisabeth Worthy MD T4 [Mass/Vol] 6.6 ug/dL Normal 4.5-10.9 [facility] Comment on above: Performed By: #### F TI, FE #### [address] [phone] Customer Relations Consultant: Otoniel Ash MD #### TSH, LIPR, CP, GLYHGB, CDP #### [facility] [address] [place] [address] Customer Relations Consultant: Elisabeth Worthy MD Ironon 10-08-2019 Iron [Mass/Vol] 73 ug/dL Normal 37-145 [facility] Comment on above: Performed By: #### F TI, FE #### [facility] [address] [place], [place] [phone] Customer Relations Consultant: Otoniel Ash MD #### TSH, LIPR, CP, GLYHGB, CDP #### [facility] [address] [place] [address] Customer Relations Consultant: Elisabeth Worthy MD T3 uptake and FTIon 10-08-19 Free Thyroxine Index 2 ug/dL 1.4 - 3 .1 ug/dL [place] T4 [Mass/Vol] 29.74 % 22.5 - 37 % [place] T4, Total 6.6 ug/dL 4.5 - 10.9 ug/dL [place] CBC Auto Differentialon 09-16 Basophils (Bld) [#/Vol] 0.07 10*3/uL [place] Basophils/100 WBC (Bld) 1 % 0 - 2 % [place] Differential Type NOT REPORTED [place] Eosinophils (Bld) [#/Vol] 0.06 10*3/uL [place] Eosinophils/100 WBC (Bld) 1 % 1 - 4 % [place] Erythrocyte distribution width (RBC) [Ratio] 14.5 % High 11.8 - 14.4 % [place] Hematocrit (Bld) [Volume fraction] 42.4 % 36.3 - 47.1 % [place] Hemoglobin (Bld) [Mass/Vol] 13.2 g/dL 11.9 - 15.1 g/dL [place] Immature granulocytes (Bld) [#/Vol] 10*3/uL [place] Immature granulocytes (Bld) [#/Vol] 0 % 0 [place] Interpretation and review of laboratory results Abnormal [place] Lymphocytes (Bld) [#/Vol] 1.87 10*3/uL [place] Lymphocytes/100 WBC (Bld) 33 % 24 - 43 % [place] MCH (RBC) [Entitic mass] 26.1 pg 25.2 - 33.5 pg [place] MCHC (RBC) [Mass/Vol] 31.1 g/dL 28.4 - 34.8 g/dL [place] MCV (RBC) [Entitic vol] 84.0 fL 82.6 - 102.9 fL [place] Monocytes (Bld) [#/Vol] 0.45 10*3/uL [place] Monocytes/100 WBC (Bld) 8 % 3 - 12 % [place] Platelet mean volume (Bld) [Entitic vol] 10.1 fL 8.1 - 13.5 fL [place] Platelets (Bld) [#/Vol] 270 10*3/uL [place] Platelets (Bld) [#/Vol] NOT REPORTED [place] RBC (Bld) [#/Vol] 5.05 10*6/uL 3.95 - 5.1 1 m/uL [place] RBC morphology finding Nom (Bld) NOT REPORTED [place] Segmented neutrophils/100 WBC (Bld) 57 % 36 - 65 % [place] Segs Absolute 3.17 [place] WBC (Bld) [#/Vol] 5.6 10*3/uL [place] WBC (Bld) [#/Vol] 0.0 10*3/uL 0.0 per 10 0 WBC [place] WBC Morphology NOT REPORTED [place] CBC with Diffon 10-07-2019 Abs. Basophil 0.07 k/uL Normal 0.00-0.20 [facility] Comment on above: Performed By: #### F TI, FE #### [address] [address] Customer Relations Consultant: Otoniel Ash MD #### TSH, LIPR, CP, GLYHGB, CDP #### [address] [place] [phone] Customer Relations Consultant: Elisabeth Worthy MD Abs.Imm.Granulocyte <0.03 Normal 0.00-0.30 [facility] Comment on above: Performed By: #### F TI, FE #### [address] [address] Customer Relations Consultant: Otoniel Ash MD #### TSH, LIPR, CP, GLYHGB, CDP #### [address] [place] [phone] Customer Relations Consultant: Elisabeth Worthy MD Abs.Neutrophil (Seg) 3.17 k/uL Normal 1.50-8.10 [place] Comment on above: Performed By: #### F TI, FE #### [address] [address] Customer Relations Consultant: Otoniel Ash MD #### TSH, LIPR, CP, GLYHGB, CDP #### [address] [place] [phone] Customer Relations Consultant: Elisabeth Worthy MD Basophils/100 WBC (Bld) 1 % Normal 0-2 [facility] Comment on above: Performed By: #### F TI, FE #### [address] [address] Customer Relations Consultant: Otoniel Ash MD #### TSH, LIPR, CP, GLYHGB, CDP #### [address] [place] [phone] Customer Relations Consultant: Elisabeth Worthy MD Eosinophils (Bld) [#/Vol] 0.06 10*3/uL Normal 0.00-0.44 [facility] Comment on above: Performed By: #### F TI, FE #### [address] [address] Customer Relations Consultant: Otoniel Ash MD #### TSH, LIPR, CP, GLYHGB, CDP #### [facility] [address] [place] [address] [place] [address] Customer Relations Consultant: Elisabeth Worthy MD Eosinophils/100 WBC (Bld) 1 % Normal 1-4 [facility] Comment on above: Performed By: #### F TI, FE #### [address] [phone] Customer Relations Consultant: Otoniel Ash MD #### TSH, LIPR, CP, GLYHGB, CDP #### [address] [place] [phone] Customer Relations Consultant: Elisabeth Worthy MD Erythrocyte distribution width (RBC) [Ratio] 14.5 % High 11.8-14.4 [facility] Comment on above: Performed By: #### F TI, FE #### [place] [address] Customer Relations Consultant: Otoniel Ash MD #### TSH, LIPR, CP, GLYHGB, CDP #### [address] [place] [phone] Customer Relations Consultant: Elisabeth Worthy MD Hematocrit (Bld) [Volume fraction] 42.4 % Normal 36.3-47.1 [facility] Comment on above: Performed By: #### F TI, FE #### [address] [phone] Customer Relations Consultant: Otoniel Ash MD #### TSH, LIPR, CP, GLYHGB, CDP #### [address] [place] [phone] Customer Relations Consultant: Elisabeth Worthy MD Hemoglobin (Bld) [Mass/Vol] 13.2 g/dL Normal 11.9-15.1 [facility] Comment on above: Performed By: #### F TI, FE #### [address] [address] Customer Relations Consultant: Otoniel Ash MD #### TSH, LIPR, CP, GLYHGB, CDP #### [address] [place] [phone] Customer Relations Consultant: Elisabeth Worthy MD Immature granulocytes (Bld) [#/Vol] 0 % Normal 0 [facility] Comment on above: Performed By: #### F TI, FE #### [address] [address] Customer Relations Consultant: Otoniel Ash MD #### TSH, LIPR, CP, GLYHGB, CDP #### [address] [place] [phone] Customer Relations Consultant: Elisabeth Worthy MD Lymphocytes (Bld) [#/Vol] 1.87 10*3/uL Normal 1.10-3.70 [facility] Comment on above: Performed By: #### F TI, FE #### [address] [phone] Customer Relations Consultant: Otoniel Ash MD #### TSH, LIPR, CP, GLYHGB, CDP #### [address] [place] [phone] Customer Relations Consultant: Elisabeth Worthy MD Lymphocytes/100 WBC (Bld) 33 % Normal 24-43 [facility] Comment on above: Performed By: #### F TI, FE #### [address] [phone] Customer Relations Consultant: Otoniel Ash MD #### TSH, LIPR, CP, GLYHGB, CDP #### [address] [place] [phone] Customer Relations Consultant: Elisabeth Worthy MD MCH (RBC) [Entitic mass] 26.1 pg Normal 25.2-33.5 [facility] Comment on above: Performed By: #### F TI, FE #### [address] [phone] Customer Relations Consultant: Otoniel Ash MD #### TSH, LIPR, CP, GLYHGB, CDP #### [address] [place] [phone] Customer Relations Consultant: Elisabeth Worthy MD MCHC (RBC) [Mass/Vol] 31.1 g/dL Normal 28.4-34.8 [facility] Comment on above: Performed By: #### F TI, FE #### [address] [phone] Customer Relations Consultant: Otoniel Ash MD #### TSH, LIPR, CP, GLYHGB, CDP #### [address] [place] [phone] Customer Relations Consultant: Elisabeth Worthy MD MCV (RBC) [Entitic vol] 84.0 fL Normal 82.6-102.9 [facility] Comment on above: Performed By: #### F TI, FE #### [address] [phone] Customer Relations Consultant: Otoniel Ash MD #### TSH, LIPR, CP, GLYHGB, CDP #### [address] [place] [address] Customer Relations Consultant: Elisabeth Worthy MD Monocytes (Bld) [#/Vol] 0.45 10*3/uL Normal 0.10-1.20 [facility] Comment on above: Performed By: #### F TI, FE #### [address] [phone] Customer Relations Consultant: Otoniel Ash MD #### TSH, LIPR, CP, GLYHGB, CDP #### [facility] [address] [place] [address] Customer Relations Consultant: Elisabeth Worthy MD Monocytes/100 WBC (Bld) 8 % Normal 3-12 [facility] Comment on above: Performed By: #### F TI, FE #### [facility] [address] [place], [place] [phone] Customer Relations Consultant: Otoniel Ash MD #### TSH, LIPR, CP, GLYHGB, CDP #### [facility] [address] [place] [address] Customer Relations Consultant: Elisabeth Worthy MD Neutrophil (Seg) 57 % Normal 36-65 [facility] Comment on above: Performed By: #### F TI, FE #### [address] [phone] Customer Relations Consultant: Otoniel Ash MD #### TSH, LIPR, CP, GLYHGB, CDP #### [facility] [address] [place] [address] Customer Relations Consultant: Elisabeth Worthy MD NRBC Automated 0.0 per 100 WBC Normal 0.0 [facility] Comment on above: Performed By: #### F TI, FE #### [place] [address] [place], [place] [phone] Customer Relations Consultant: Otoniel Ash MD #### TSH, LIPR, CP, GLYHGB, CDP #### [facility] [address] [place] [address] Customer Relations Consultant: Elisabeth Worthy MD Platelet mean volume (Bld) [Entitic vol] 10.1 fL Normal 8.1-13.5 [facility] Comment on above: Performed By: #### F TI, FE #### [place] [address] [place], [place] [phone] Customer Relations Consultant: Otoniel Ash MD #### TSH, LIPR, CP, GLYHGB, CDP #### [facility] [address] [place] [address] Customer Relations Consultant: Elisabeth Worthy MD Platelets (d) [#/Vol] 270 10*3/uL Normal 138-453 [facility] Comment on above: Performed By: #### F TI, FE #### [address] [address] Customer Relations Consultant: Otoniel Ash MD #### TSH, LIPR, CP, GLYHGB, CDP #### [address] [place] [phone] ( Customer Relations Consultant: Elisabeth Worthy MD RBC (Bld) [#/Vol] 5.05 10*6/uL Normal 3.95-5.11 [facility] Comment on above: Performed By: #### F TI, FE #### [address] [address] Customer Relations Consultant: Otoniel Ash MD #### TSH, LIPR, CP, GLYHGB, CDP #### [address] [place], [place] [phone] Customer Relations Consultant: Elisabeth Worthy MD WBC (d) [#/Vol] 5.6 10*3/uL Normal 3.5-11.3 [facility] Comment on above: Performed By: #### F TI, FE #### [address] [address] Customer Relations Consultant: Otoniel Ash MD #### TSH, LIPR, CP, GLYHGB, CDP #### [address] [place], [place] [phone] Customer Relations Consultant: Elisabeth Worthy MD Auto Diff Performed NOT REPORTED Normal [facility] Comment on above: Performed By: #### F TI, FE #### [address] [phone] Customer Relations Consultant: Otoniel Ash MD #### TSH, LIPR, CP, GLYHGB, CDP #### [address] [place] [address] Customer Relations Consultant: Elisabeth Worthy MD Platelets (Bld) [#/Vol] NOT REPORTED Normal [facility] Comment on above: Performed By: #### F TI, FE #### [address] [address] Customer Relations Consultant: Otoniel Ash MD #### TSH, LIPR, CP, GLYHGB, CDP #### [address] [place] [address] Customer Relations Consultant: Elisabeth Worthy MD RBC morphology finding Nom (Bld) NOT REPORTED Normal [facility] Comment on above: Performed By: #### F TI, FE #### [address] [address] Customer Relations Consultant: Otoniel Ash MD #### TSH, LIPR, CP, GLYHGB, CDP #### [address] [place] [address] Customer Relations Consultant: Elisabeth Worthy MD WBC Morphology NOT REPORTED Normal [facility] Comment on above: Performed By: #### F TI, FE #### [address] [address] Customer Relations Consultant: Otoniel Ash MD #### TSH, LIPR, CP, GLYHGB, CDP #### [address] [place] [address] Customer Relations Consultant: Elisabeth Worthy MD Comp Metabolic Profon 2019 (cont.) Normal [facility] Comment on above: Result Comment: Aver age GFR for 60-69 years old: 85 mL/min/1.73sq m Chronic Kidney Disease: <60 mL/min/1.73sq m Kidney failure: <15 mL/min/1.73sq m eGFR calculated using average adult body mass. Additional eGFR calculator available at: http://www.UserMojo.SmartMove/multiple_crcl_2012.htm Performed By: #### F TI, FE #### [address] [address] Customer Relations Consultant: Otoniel Ash MD #### TSH, LIPR, CP, GLYHGB, CDP #### [address] [place] [phone] Customer Relations Consultant: Elisabeth Worthy MD Albumin [Mass/Vol] 4.5 g/dL Normal 3.5-5.2 [facility] Comment on above: Performed By: #### F TI, FE #### [address] [address] Customer Relations Consultant: Otoniel Ash MD #### TSH, LIPR, CP, GLYHGB, CDP #### [address] [place] [phone] Customer Relations Consultant: Elisabeth Worthy MD Albumin/Globulin [Mass ratio] 1.4 {ratio} Normal 1.0-2.5 [facility] Comment on above: Performed By: #### F TI, FE #### [address] [address] Customer Relations Consultant: Otoniel Ash MD #### TSH, LIPR, CP, GLYHGB, CDP #### [address] [place], [place] [phone] Customer Relations Consultant: Elisabeth Worthy MD Alkaline Phos 94 U/L Normal 35-104 [facility] Comment on above: Performed By: #### F TI, FE #### [address] [address] Customer Relations Consultant: Otoniel Ash MD #### TSH, LIPR, CP, GLYHGB, CDP #### [address] [place], [place] [phone] Customer Relations Consultant: Elisabeth Worthy MD ALT [Catalytic activity/Vol] 10 U/L Normal 5-33 [facility] Comment on above: Performed By: #### F TI, FE #### [address] [phone] Customer Relations Consultant: Otoniel Ash MD #### TSH, LIPR, CP, GLYHGB, CDP #### [address] [place], [place] [phone] Customer Relations Consultant: Elisabeth Worthy MD Anion gap [Moles/Vol] 12 mmol/L Normal 9-17 [facility] Comment on above: Performed By: #### F TI, FE #### [address] [phone] Customer Relations Consultant: Otoniel Ash MD #### TSH, LIPR, CP, GLYHGB, CDP #### [address] [place], [place] [phone] Customer Relations Consultant: Elisabeth Worthy MD AST [Catalytic activity/Vol] 40 U/L High <32 [facility] Comment on above: Performed By: #### F TI, FE #### [address] [phone] Customer Relations Consultant: Otoniel Ash MD #### TSH, LIPR, CP, GLYHGB, CDP #### [address] [place], [place] [phone] Customer Relations Consultant: Elisabeth Worthy MD Bilirubin Ql (U) 0.27 mg/dL Low 0.3-1.2 [facility] Comment on above: Performed By: #### F TI, FE #### [address] [phone] Customer Relations Consultant: Otoniel Ash MD #### TSH, LIPR, CP, GLYHGB, CDP #### [facility] [address] [place], [place] [phone] Customer Relations Consultant: Elisabeth Worthy MD BUN/CRE Ratio 22 High 9-20 [facility] Comment on above: Performed By: #### F TI, FE #### [address] [phone] Customer Relations Consultant: Otoniel Ash MD #### TSH, LIPR, CP, GLYHGB, CDP #### [address] [place], [place] [phone] Customer Relations Consultant: Elisabeth Worthy MD Calcium [Mass/Vol] 10.0 mg/dL Normal 8.6-10.4 [facility] Comment on above: Performed By: #### F TI, FE #### [address] [phone] Customer Relations Consultant: Otoniel Ash MD #### TSH, LIPR, CP, GLYHGB, CDP #### [address] [place], [place] [phone] Customer Relations Consultant: Elisabeth Worthy MD Chloride [Moles/Vol] 105 mmol/L Normal 98-107 [place] Comment on above: Performed By: #### F TI, FE #### [address] [address] Customer Relations Consultant: Otoniel Ash MD #### TSH, LIPR, CP, GLYHGB, CDP #### [address] [place], [place] [phone] Customer Relations Consultant: Elisabeth Worthy MD CO2 [Moles/Vol] 21 mmol/L Normal 20-31 [facility] Comment on above: Performed By: #### F TI, FE #### [address] [phone] Customer Relations Consultant: Otoniel Ash MD #### TSH, LIPR, CP, GLYHGB, CDP #### [address] [place], [place] [phone] Customer Relations Consultant: Elisabeth Worthy MD Creatinine [Mass/Vol] 0.79 mg/dL Normal 0.50-0.90 [facility] Comment on above: Performed By: #### F TI, FE #### [address] [phone] Customer Relations Consultant: Otoniel Ash MD #### TSH, LIPR, CP, GLYHGB, CDP #### [address] [place] [address] Customer Relations Consultant: Elisabeth Worthy MD GFR, Amer >60 Normal >60 [facility] Comment on above: Performed By: #### F TI, FE #### [address] [phone] Customer Relations Consultant: Otoniel Ash MD #### TSH, LIPR, CP, GLYHGB, CDP #### [address] [place], [place] [phone] Customer Relations Consultant: Elisabeth Worthy MD GFR,non Amer >60 Normal >60 [place] Comment on above: Performed By: #### F TI, FE #### [address] [address] Customer Relations Consultant: Otoniel Ash MD #### TSH, LIPR, CP, GLYHGB, CDP #### [address] [place], [place] [phone] Customer Relations Consultant: Elisabeth Worthy MD Glucose [Mass/Vol] 99 mg/dL Normal 70-99 [facility] Comment on above: Performed By: #### F TI, FE #### [address] [address] Customer Relations Consultant: Otoniel Ash MD #### TSH, LIPR, CP, GLYHGB, CDP #### [address] [place], [place] [phone] Customer Relations Consultant: Elisabeth Worthy MD Potassium [Moles/Vol] 4.1 mmol/L Normal 3.7-5.3 [facility] Comment on above: Performed By: #### F TI, FE #### [place] [address] [place] [address] Customer Relations Consultant: Otoniel Ash MD #### TSH, LIPR, CP, GLYHGB, CDP #### [address] [place], [place] [phone] Customer Relations Consultant: Elisabeth Worthy MD Protein [Mass/Vol] 7.7 g/dL Normal 6.4-8.3 [facility] Comment on above: Performed By: #### F TI, FE #### [address] [phone] Customer Relations Consultant: Otoniel Ash MD #### TSH, LIPR, CP, GLYHGB, CDP #### [address] [place], [place] [phone] Customer Relations Consultant: Elisabeth Worthy MD Sodium [Moles/Vol] 138 mmol/L Normal 135-144 [facility] Comment on above: Performed By: #### F TI, FE #### [place] [address] [place], [place] [phone] Customer Relations Consultant: Otoniel Ash MD #### TSH, LIPR, CP, GLYHGB, CDP #### [address] [place], [place] [phone] Customer Relations Consultant: Elisabeth Worthy MD Staging: Normal [facility] Comment on above: Result Comment: Stag e 1: Some kidney damage normal GFR Stage 2: Mild kidney damage GFR 60-89 Stage 3: Moderate kidney damage GFR 30-59 Stage 4: Severe kidney damage GFR 15-29 Stage 5: Severe kidney damage GFR <15 ESRD - chronic treatment by dialysis or transplant Performed By: #### F TI, FE #### [facility] [address] [place], [place] [phone] Customer Relations Consultant: Otoniel Ash MD #### TSH, LIPR, CP, GLYHGB, CDP #### [facility] [address] [place], [place] [phone] Customer Relations Consultant: Elisabeth Worthy MD Urea nitrogen [Mass/Vol] 17 mg/dL Normal 8-23 [facility] Comment on above: Performed By: #### F TI, FE #### [facility] [address] [place], [place] [phone] Customer Relations Consultant: Otoniel Ash MD #### TSH, LIPR, CP, GLYHGB, CDP #### [facility] [address] [place] [address] Customer Relations Consultant: Elisabeth Worthy MD Comprehensive Metabolic Pane [facility] 10-07-2019 Albumin [Mass/Vol] 4.5 g/dL 3.5 - 5.2 g/dL [place], [place] Albumin/Globulin [Mass ratio] 1.4 {ratio} [place] ALP [Catalytic activity/Vol] 94 U/L 35 - 104 U/L [place] ALT [Catalytic activity/Vol] 10 U/L 5 - 33 U/L [place] Anion gap [Moles/Vol] 12 mmol/L 9 - 17 mmol/L [place] AST [Catalytic activity/Vol] 40 U/L High <32 [place] Bilirubin Ql (U) 0.27 mg/dL Low 0.3 - 1.2 mg/dL [place] Bun/Cre Ratio 22 High [place] Calcium [Mass/Vol] 10.0 mg/dL 8.6 - 10. 4 mg/dL [place] Chloride [Moles/Vol] 105 mmol/L 98 - 10 7 mmol/L [place] CO2 [Moles/Vol] 21 mmol/L 20 - 31 mmol/L [place] Creatinine [Mass/Vol] 0.79 mg/dL 0.5 - 0.9 mg/dL [place] GFR >60 >60 mL/min [place], [place] GFR Non- >60 >60 mL/min [place] Glucose [Mass/Vol] 99 mg/dL 70 - 99 mg/dL [place] Potassium [Moles/Vol] 4.1 mmol/L 3.7 - 5.3 mmol/L [place] Protein [Mass/Vol] 7.7 g/dL 6.4 - 8.3 g/dL [place] Sodium [Moles/Vol] 138 mmol/L 135 - 144 mmol/L [place] Urea nitrogen [Mass/Vol] 17 mg/dL 8 - 23 mg/dL [place] Hemoglobin A1Con 10-07-2019 HbA1c (Bld) [Mass fraction] 5.3 % Normal 4.8-5.9 [facility] Comment on above: Performed By: #### F TI, FE #### [address] [address] Customer Relations Consultant: Otoniel Ash MD #### TSH, LIPR, CP, GLYHGB, CDP #### [address] [place] [address] Customer Relations Consultant: Elisabeth Worthy MD HbA1c (Bld) [Mass fraction] 105 mg/dL Normal [facility] Comment on above: Result Comment: The ADA and AACC recommend providing the estimated average glucose result to permit better patient understanding of their HBA1c result. Performed By: #### F TI, FE #### [place] [address] [place] [address] Customer Relations Consultant: Otoniel Ash MD #### TSH, LIPR, CP, GLYHGB, CDP #### [facility] [address] [place] [address] Customer Relations Consultant: Elisabeth Worthy MD Glucose [Mass/Vol] 105 mg/dL [place] Comment on above: The ADA and AACC rec ommend providing the estimated average glucose result to permit better patient understanding of their HBA1c result. HbA1c (Bld) [Mass fraction] 5.3 % 4.8 - 5.9 % [place] Ironon 10-07-2019 Iron [Mass/Vol] 73 ug/dL 37 - 145 ug/dL [place] Lipid Panelon 10-07-2019 Cholesterol [Mass/Vol] 229 mg/dL High <200 [place] Comment on above: Cholesterol Guidelines: <200 Desirable 200-240 Borderline >240 Undesirable Cholesterol in HDL [Mass/Vol] 67 mg/dL >40 [place] Comment on above: HDL Guidelines: <40 Undesirable 40-59 Borderline >59 Desirable Cholesterol in LDL [Mass/Vol] 127 mg/dL 0 - 130 mg/dL [place] Comment on above: LDL Guidelines: <100 Desirable 100-129 Near to/above Desirable 130-159 Borderline >159 Undesirable Direct (measured) LDL and calculated LDL are not interchangeable tests. Cholesterol in VLDL [Mass/Vol] NOT REPORTED High 1 - 30 mg/dL [place] Cholesterol.total/Cho lesterol in HDL [Mass ratio] 3.4 {ratio} <5 [place] Triglyceride [Mass/Vol] 175 mg/dL High <150 [place] Comment on above: Triglyceride Guidelines: <150 Desirable 150-199 Borderline 200-499 High >499 Very high Based on AHA Guidelines for fasting triglyceride, December 2011. Lipid Profileon 10-07-2019 Cholesterol [Mass/Vol] 229 mg/dL High <200 [facility] Comment on above: Result Comment: Cholesterol Guidelines: <200 Desirable 200-240 Borderline >240 Undesirable Performed By: #### F TI, FE #### [facility] [address] [place] [address] Customer Relations Consultant: Otoniel Ash MD #### TSH, LIPR, CP, GLYHGB, CDP #### [facility] [address] [place] [address] Customer Relations Consultant: Elisabeth Worthy MD Cholesterol in HDL [Mass/Vol] 67 mg/dL Normal >40 [facility] Comment on above: Result Comment: HDL Guidelines: <40 Undesirable 40-59 Borderline >59 Desirable Performed By: #### F TI, FE #### [address] [address] Customer Relations Consultant: Otoniel Ash MD #### TSH, LIPR, CP, GLYHGB, CDP #### [address] [place] [address] Customer Relations Consultant: Elisabeth Worthy MD Cholesterol in LDL [Mass/Vol] 127 mg/dL Normal 0-130 [facility] Comment on above: Result Comment: LDL Guidelines: <100 Desirable 100-129 Near to/above Desirable 130-159 Borderline >159 Undesirable Direct (measured) LDL and calculated LDL are not interchangeable tests. Performed By: #### F TI, FE #### [address] [address] Customer Relations Consultant: Otoniel Ash MD #### TSH, LIPR, CP, GLYHGB, CDP #### [address] [place] [address] Customer Relations Consultant: Elisabeth Worthy MD Cholesterol.total/Cho lesterol in HDL [Mass ratio] 3.4 {ratio} Normal <5 [facility] Comment on above: Performed By: #### F TI, FE #### [address] [address] Customer Relations Consultant: Otoniel Ash MD #### TSH, LIPR, CP, GLYHGB, CDP #### [address] [place] [address] Customer Relations Consultant: Elisabeth Worthy MD Triglyceride [Mass/Vol] 175 mg/dL High <150 [facility] Comment on above: Result Comment: Triglyceride Guidelines: <150 Desirable 150-199 Borderline 200-499 High >499 Very high Based on AHA Guidelines for fasting triglyceride, December 2011. Performed By: #### F TI, FE #### [address] [address] Customer Relations Consultant: Otoniel Ash MD #### TSH, LIPR, CP, GLYHGB, CDP #### [facility] [address] [place] [address] Customer Relations Consultant: Elisabeth Worthy MD Cholesterol in VLDL [Mass/Vol] NOT REPORTED Normal 1-30 [facility] Comment on above: Performed By: #### F TI, FE #### [facility] [address] [place], [place] [phone] Customer Relations Consultant: Otoniel Ash MD #### TSH, LIPR, CP, GLYHGB, CDP #### [facility] [address] [place] [address] Customer Relations Consultant: Elisabeth Worthy MD Metabolic Panelon 10-07-2019 GFR/1.73 sq M predicted among non-blacks MDRD (S/P/Bld) [Vol rate/Area] [place] Comment on above: Stage 1: Some [...] body mass. Additional eGFR calculator available at: http://www.UserMojo.SmartMove/multiple_crcl_2011.htm Otheron 10-07-2019 Interpretation and review of laboratory results Abnormal [place] TSH without Reflexon 020 TSH Qn 1.12 m[IU]/L [place] Thyroid Stim. Horm.on 2019 TSH Qn 1.12 m[IU]/L Normal 0.30-5.00 [facility] Comment on above: Performed By: #### F TI, FE #### [facility] [address] [place], [place] [phone] Customer Relations Consultant: Otoniel Ash MD #### TSH, LIPR, CP, GLYHGB, CDP #### [facility] [address] [place] [address] Customer Relations Consultant: Elisabeth Worthy MD Operative Reporton 8 Operative Report MR#: [id number] [facility] Pt. Name: Xena Ewing Room #: 0C Discharge Date: Birthdate: 1955 OPERATIVE REPORTDATE OF SURGERY: 03/17/2018SURGEON: Bart Holcomb M.D.CHARCOAL UNLOADER: Carlton Galicia M.D.PREOPERATIVE DIAGNOSIS: Right recurrent de [...] for the entire procedure. Date Dict: 03/17/2018/10:00 Finn/EMETERIO Andinoate Trans: 03/17/2018 11:55 [id number] 0cc: Anamika Valle M.D. [address] [facility] [address] Normal [facility] POC GLUCOSE LABon 03-17-2018 Glucose mass conc 89 mg/dL Normal 70-100 [facility] Comment on above: Performed By: #### 8 [id number] ####[facility] Vital Signs Date Time Vital Sign Value Performing Clinician Morena sahu 02-05-2024 14:03-0500 Blood Pressure Location Rubén MANUEL [facility] 02-05-2024 14:03-0500 Diastolic blood pressure 84 mm[Hg] Rubén MANUEL [facility] 02-05-2024 14:03-0500 Heart rate 72 /min Rubén ACEVEDOL [facility] 02-05-2024 14:03-0500 Respiratory rate 16 /min Rubén NILL [facility] 02-05-2024 14:03-0500 Systolic blood pressure 132 mm[Hg] Rubén NILL [facility] 10-23-2022 11:13-0400 Body height 165.1 cm Claire Morales MD Work Phone: [facility] 10-23-2022 11:13-0400 Body weight 73.07 kg Claire Morales MD Work Phone: [facility] 10-23-2022 11:13-0400 Diastolic blood pressure 71 mm[Hg] Claire Morales MD Work Phone: [facility] 10-23-2022 11:13-0400 Heart rate 77 /min Claire Morales MD Work Phone: [facility] 10-23-2022 11:13-0400 Systolic blood pressure 125 mm[Hg] Claire Morales MD Work Phone: [facility] Encounters Encounter Date Encounter Type Care Provider Facility Start: 02-06-2024 End: 02-06-2024 ambulatory GEORGES BURNS [place] [place]: 02-06-2024 End: 02-06-[address] GEORGES BURNS [facility] Start: 02-05-2024 End: 02-05-2024 ambulatory Rubén MANUEL Facility:[facility] Start: 02-05-2024 End: 02-05-2024 Patient encounter procedure Rubén ACEVEDOL [facility] Start: 12-27-2023 End: 12-27-2023 Patient encounter procedure MD Anamika Valle Work Phone: [facility] Work Phone: Start: 12-27-2023 End: 12-27-2023 ambulatory MD Anamika Valle Work Phone: [facility] Work Phone: Start: 12-17-2023 End: 12-17-2023 Bamboo flowsheet Shirin A Felter SOLAR RESOURCE ASSESSOR-JOB PRINTER APPRENTICE Work Phone: [facility] Start: 12-17-2023 End: 12-17-2023 Bamboo flowsheet Shirin A Felter SOLAR RESOURCE ASSESSOR-JOB PRINTER APPRENTICE Work Phone: [facility] Start: 12-17-2023 End: 12-17-2023 Office outpatient new 20 minutes Shirin A Felter SOLAR RESOURCE ASSESSOR-JOB PRINTER APPRENTICE Work Phone: [facility] Comment on above: Other nonthrombocyto penic purpura (CMS/HCC) (Primary Dx); Actinic keratosis Start: 12-17-2023 End: 12-17-2023 ambulatory SHIRIN A FELTER Not Available Start: 07-31-2023 End: 07-31-2023 ambulatory MONIE S LIEBENTHAL Not Available Start: 07-03-2023 End: 07-03-2023 ambulatory MONIE S LIEBENTHAL Not Available Start: 05-29-2023 End: 05-29-2023 ambulatory SEVERO SHEELA Not Available Start: 05-09-2023 End: 05-09-2023 ambulatory MONIE S LIEBENTHAL Not Available Start: 03-28-2023 End: 03-28-2023 ambulatory MONIE S LIEBENTHAL Not Available Start: 01-30-2023 End: 01-30-2023 ambulatory MONIE S LIEBENTHAL Not Available Start: 12-24-2022 End: 12-24-2022 ambulatory MD Anamika Valle Work Phone: [facility] Work Phone: Start: 12-24-2022 End: 12-24-2022 Patient encounter procedure MD Anamika Valle Work Phone: [facility] Work Phone: Start: 10-23-2022 [...] 12-21-2021 ambulatory MD Anamika Valle Work Phone: [facility] Work Phone: Start: 12-21-2021 End: 12-21-2021 Patient encounter procedure MD Anamika Valle Work Phone: [facility] Start: 11-09-2021 End: 11-10-[address] ANAMIKA VALLE Facility:[facility] Start: 08-31-2021 End: 08-31-[address] ANAMIKA VALLE Facility:[facility] Start: 06-29-2021 End: 06-29-[address] ANAMIKA VALLE Facility:[facility] Start: 06-21-2021 End: 06-22-[address] ANAMIKA VALLE Facility:[facility] Start: 06-08-2021 End: 06-09-[address] ANAMIKA VALLE Facility:[facility] Start: 10-13-2019 End: 10-14-2019 Patient encounter procedure [facility] Start: 10-13-2019 End: 10-13-2019 Subsequent hospital visit by physician Anamika Valle [facility] Start: 10-07-2019 End: 10-08-2019 Patient encounter procedure [facility] Start: 10-07-2019 End: 10-07-2019 Subsequent hospital visit by physician [facility] Drawing Room [facility] Comment on above: Arrived Start: 03-17-2018 End: 03-18-2018 Patient encounter procedure GIOVANI HOLCOMB Facility:[facility] Start: 02-14-2018 End: 02-15-2018 Patient encounter procedure DEFAULT PHYSICIAN Facility:[facility] Procedures Date Procedure Procedure Detail Performing Clinician Start: 12-27-2023 Screening mammograph y of bilateral breasts MD Anamika Valle Work Phone: Start: 12-17-2023 CRYOTHERAPY SKIN LESION Shirin Escobar SOLAR RESOURCE ASSESSOR-JOB PRINTER APPRENTICE Work Phone: Start: 12-24-2022 Screening mammograph y of bilateral breasts MD Anamika Valle Work Phone: Start: 04-19-2022 Mammography Shirin Luna lter SOLAR RESOURCE ASSESSORCo-Work Work Phone: Start: 12-21-2021 Screening mammograph y of bilateral breasts MD Anamika Valle Work Phone: Start: 10-13-2019 Virus centrifuge enh ncd id imfluor stain ea ANAMIKA VALLE Start: 10-13-2019 BLOOD OCCULT STOOL S CREEN #1 Anamika M Makayla Work Phone: Start: 10-07-2019 Assay of iron [...] of thyroid stimulating hormone tsh Anamika M Makayla Work Phone: Start: 10-07-2019 Blood count complete [...] OF TENDON SHEATH ABDULAZIM JI Appendectomy Rubén NILL Colonoscopy Rubén NILL Decompression of med vernon nerve Rubén NILL Re-release of carpal tunnel Rubén NILL Total abdominal hysterectomy with bilateral salpingo-oophorectomy Rubén NILL Plan of Treatment Date Care Activity Detail Author Start: 06-01-2028 DTaP/Tdap/Td vaccine (2 - Td) DTaP/Tdap/Td vaccine (2 - Td) [place], [place] Start: 10-06-2024 Lipid panel Lipid screen [place], [place] Start: 06-01-2024 End: 06-01-2024 Patient encounter procedure 06/01/2024 11:00 AM EDT Office Visit [facility] [address] [id number] Severo Curry, [address] Pascual Vargas, [facility] Start: 12-17-2023 End: 12-17-2023 Patient encounter procedure 12/17/2023 11:05 AM EDT Office Visit [facility] [address] [place] [address] Shirin Escobar APRN-JOB PRINTER APPRENTICE [address] [place] [address] Arrived [facility] Comment on above: Arrived Start: 11-17-2023 Influenza vaccination Influenza Vacc ine (#1) [facility] Start: 04-19-2023 Screening for malign ant neoplasm of breast Mammogram [facility] Start: 11-16-2022 Influenza vaccination INFLUENZA (#1) [facility] Start: 04-21-2022 COVID-19 VACCINE (5 - Pfizer series) COVID-19 VACCINE (5 - Pfizer series) [facility] Start: 03-18-2022 ADVANCE DIRECTIVE DISCUSSION ADVANCE DIRECTIVE DISCUSSION [facility] Start: 03-18-2022 DEPRESSION ASSESSMENT DEPRESSION ASS ESSMENT [facility] Start: 2021 BONE DENSITY BONE DENSITY [facility] Start: 2021 Pneumococcal Vaccine : 65+ Years (2 of 2 - PCV) Pneumococcal Vaccine: 65+ Years (2 of 2 - PCV) [facility] Start: 11-17-2019 Influenza vaccination Flu vaccine (# 1) [place], [place] Start: 2006 Influenza vaccination LUNG CANCER SC REENING [facility] Start: 2006 Screening for malign ant neoplasm of breast Breast cancer screen [place], [place] Start: 2006 Screening for malign ant neoplasm of colon Colon cancer screen colonoscopy [place], [place] Start: 2006 Shingles Vaccine (1 of 2) Shingles Vaccine (1 of 2) [place] Start: 2006 SHINGRIX VACCINE (1 of 2) SHINGRIX VACCINE (1 of 2) [facility] Start: 2001 COLOGUARD (FIT-DNA) COLOGUARD (FIT-D NA) [facility] Start: 2001 Colonoscopy COLONOSCOPY [facility] Start: 2001 COLORECTAL CANCER SCREENING COLORECTAL CANCER SCREENING [facility] Start: [address] COLONOGRAPHY [facility] Start: 2001 DIABETES SCREEN DIABETES SCREEN [facility] Start: 2001 FECAL OCCULT BLOOD FECAL OCCULT BLOO D [facility] Start: 2001 LIPID SCREEN LIPID SCREEN [facility] Start: 2001 SIGMOIDOSCOPY SIGMOIDOSCOPY [facility] Start: 1996 Lipid panel Lipid screen [place], [place] Start: 1996 Mammography MAMMOGRAM [facility] Start: 1977 Screening for malign ant neoplasm of cervix Cervical cancer screen [place], [place] Start: 12-12-1975 Urine microalbumin profile DTAP,TDAP,TD (1 - Tdap) [facility] Start: 1974 HEPATITIS C SCREENING HEPATITIS C [facility] Start: 1974 HIV SCREENING HIV SCREENING [facility] Start: 12-12-1971 HIV [facility] [place] [place] Start: 1962 PNEUMOCOCCAL: 65+ (1 - PCV) PNEUMOCOCCAL: 65+ (1 - PCV) [facility] Start: 1956 Hepatitis C screening Hepatitis C ma katherine [place], [place] Start: 1956 Screening for malign ant neoplasm of colon [facility] Immunizations Immunization Date Immunization Notes Care Provider Angie sandoval 12-19-2021 SARS-CoV-2 (COVID-19 ) [id number] Rubén ACEVEDOL [facility] 04-04-2021 SARS-CoV-2 (COVID-19 ) mRNA BNT-162b2 vax Rubén NILL [facility] 12-16-2020 SARS-CoV-2 (COVID-19 ) mRNA BNT-162b2 vax Rubén NILL [facility] 11-28-2020 SARS-CoV-2 (COVID-19 ) mRNA BNT-162b2 vax Rubén NILL [facility] 06-05-2018 influenza virus vaccine, unspecified formulation Shirin Escobar SOLAR RESOURCE ASSESSOR-JOB PRINTER APPRENTICE Work Phone: [facility] 06-01-2018 tetanus toxoid, redu tu diphtheria toxoid, and acellular pertussis vaccine, adsorbed Mth Room [place], [place] Payers Date Payer Category Payer Self-pay [id number] 2023 Medicare [id number] 2022 Medicare [id number] 2019 Unknown [id number] 2019 Unknown [employer] - EXCHANGE [id number] 2019-Present [phone] [address] [place] [address] [id number] 1959 Medicare [id number] 1959 Medicare [id number] 1959 Private Health Insurance [facility] [id number] 1956 Unknown [id number] 2.16.840.1.456124.3.579.2.6 47 1956 Unknown [id number] 2.16.840.1.817975.3.579.2.6 47 1956 Unknown [id number] 2.16.840.1.844318.3.579.2.1 73 1956 Unknown [id number] 2.16.840.1.543382.3.579.2.1 73 1956 Unknown [id number] 2.16.840.1.155715.3.579.2.5 93 1956 Unknown [id number] 2.16.840.1.370592.3.579.2.5 93 1956 Unknown [id number] 2.16.840.1.275542.3.579.2.5 93 1956 Unknown [id number] 2.16.840.1.048601.3.579.2.5 93 1956 Unknown [id number] 2.16.840.1.864980.3.579.2.5 93 1956 Unknown [id number] 2.16.840.1.330260.3.579.2.5 93 1956 Unknown [id number] 2.16.840.1.746704.3.579.2.5 93 1956 Unknown [id number] 2.16.840.1.172055.3.579.2.1 259 1956 Unknown [id number] 2.16.840.1.536492.3.579.2.1 259 1956 Unknown [id number] 2.16.840.1.385272.3.579.2.1 259 1956 Unknown [id number] 2.16.840.1.146479.3.579.2.1 259 1956 Unknown [id number] 2.16.840.1.863797.3.579.2.1 259 1956 Unknown [id number] 2.16.840.1.192087.3.579.2.1 259 1956 Unknown [id number] 2.16.840.1.103030.3.579.2.1 259 1956 Unknown [id number] 2.16.840.1.435951.3.579.2.7 27 1956 Unknown [id number] 2.16.840.1.138285.3.579.2.7 27 Medicare Medicare [id number] Unknown [id number] Unknown Unknown HCAP/HFA/FAP Active [id number] Unknown [id number] 2.16.840.1.543117.3.579.2.5 31 Social History Date Type Detail Facility Start: 05-31-2018 End: 02-05-2024 Tobacco smoking status MOIS Former smoker [facility] Start: 05-31-2018 Alcohol intake Ex-drinker (finding) [place], [place] Start: 09-26-1956 Sex Assigned At Not on file M [facility], [place] Exposure to SARS-CoV -2 (event) Not sure [place], [place] Start: 1955 Sex Assigned At Female F [facility] Start: 10-23-2022 [facility] History of tobacco use Cigarette Smoker C [facility] Start: 10-23-2022 End: 12-17-2023 Cigarettes smoked current (pack per day) - Reported 1 [facility] Start: 10-23-2022 Tobacco use and exposure User of smokeless tobacco [facility] Start: 10-23-2022 End: 12-17-2023 Alcohol intake Lifetime non-drinker (finding) [facility] Start: 10-23-2022 End: 12-17-2023 Tobacco use panel [facility] Start: 10-23-2022 Tobacco Comment Vape [facility] Start: 09-21-2022 [facility] Start: 04-27-2023 Alcohol Comment Caffine intake : 2-3 cups per day, coffee; tea [facility] Functional Status Date Assessment Result Facility 02-05-2024 Functional Status N/A [facility] Clinical Notes 08-31-2021 to 02-06-2024 EVE Estrada - 12/17/2023 11:05 AM Claire Segundo MD - 10/23/2022 11:34 AM EDT Note Date & Type Note Facility 02-06-2024 Evaluation + Plan note Diagnostic Tests Pendingvon Willebrand Factor (vWF) Ag 02/06/24Lupus Anticoagulant 02/06/24vWF Activity 02/06/24 [facility] 02-05-2024 Note General Surgery Offi ce/Clinic Note [...] Father. Immunizations Vaccine Date Status SARS-CoV-2 (COVID-19) [id number] 12/19/2021 Recorded SARS-CoV-2 ( (more content not included)... [facility] Comment on above: Result Comment: Elec [...] limited to risks of scarring, darker or cd manufacturing supervisor pigmentary changes, recurrence, incomplete removal and [...] any new/changing lesions documented in this encounter [facility] 10-23-2022 Note HNO ID: [id number] Author: Claire Morales MD Service: ? Author [...] cc: Referring provider Anamika Valle [address] [facility] [address] Medical Decision Making: Problems: Low: Stable chronic illness Data: Independent interpretation of test from other physician/QHCP Medical Decision Making Level: 3 - Low [facility] 10-23-2022 History of Present illness Narrative GENERAL [...] Bariatric Surgery cc: Referring provider Anamika Valle [address] [place] [phone] Medical Decision Making: Problems: Low: Stable chronic illness Data: Independent interpretation of test from other physician/QHCP Medical Decision Making Level: 3 - Low documented in this encounter [facility] 08-31-2021 Note OPERATIVE NOTE OPERATION DATE: 08/31/2021 PREOPERATIVE DIAGNOSIS: Acute appendicitis. POSTOPERATIVE DIAGNOSIS: Acute appendicitis. PROCEDURE PERFORMED: Laparoscopic appendectomy. SURGEON: Elisabeth Rehman M.D. CHARCOAL UNLOADER: PINA Corona ANESTHESIA: General, 0.5% Marcaine for [...] taken to the PACU in fair condition. [facility] Signed and Approved by: DR ELISABETH REHMAN . 09/15/2021 06:33:00 [facility] Evaluation + Plan note No data available for this section [facility] Evaluation note No assessment inform ation available [facility] Work Phone: Evaluation note Diagnosis Ventral hernia without obstruction or gangrene- Primary Ventral hernia, unspecified, without mention of obstruction or gangrene documented in this encounter [facility] Diagnosis Other nonthrombocytopenic purpura (CMS/HCC)- Primary Actinic keratosis documented in this encounter [facility] No data available for this section [facility] Progress note No data available for this section [facility] Summary Purpose Family History No Family History [...] FoundDocuments on File Type Date Recorded 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 Advance Directives and Living Will Power of Cnc Service Technician Advance Directive Response Recorded Date/ Time Advance Directives No June 06, 2 018 3:52pm Chief Complaint and Reason for Visit Chief Complaint Screening Additional Source Comments INFORMATION SOURCE (unrecogn ized section and content) DATE CREATED AUTHOR 03/21/2018 [facility] DATE CREATED AUTHOR AUTHOR'S ORGANIZ ATION [facility] DATE CREATED AUTHOR AUTHOR'S ORGANIZ ATION 04/27/2022 [facility] DATE CREATED AUTHOR AUTHOR'S ORGANIZ ATION 10/27/2022 [facility] DATE CREATED AUTHOR AUTHOR'S ORGANIZ ATION 12/18/2023 [facility] DATE CREATED AUTHOR AUTHOR'S ORGANIZ ATION 01/03/2024 [facility] DATE CREATED AUTHOR AUTHOR'S ORGANIZ ATION 02/08/2024 [facility] DATE CREATED AUTHOR AUTHOR'S ORGANIZ ATION 02/13/[address] [facility] Care Teams (unrecognized sec tion and content) Team Status: Active Member Role Status Dates Anamika Valle MD Primary Care Provider Active Team Status: Inactive Member Role Status Dates Anamika Valle MD Primary Care Provider Active Referral Self Attending Provider Active Supervisor Audit Clerks Relationship Specialty Start Date End Date Anamika Valle MD PCP - General 10/24/04 Anamika Valle MD [address] [facility] [place] [address] Referring Family Medicine 10/05/22 Supervisor Audit Clerks Relationship Specialty Start Date End Date Anamika Valle MD [address] [place] [address] PCP - General Family Medicine 09/21/22 Supervisor Audit Clerks Relationship Specialty Start Date End Date Anamika Valle MD [address] [place] [address] PCP - General Family Medicine 09/21/22 Team [...] or prosecute any alcohol or drug abuse patient.[facility] Reason for Visit (unrecogniz ed section and [...] BE BASED ON THE PRIMARY CLINICAL RECORDS. [facility]. provides no warranty or guarantee of the accuracy or completeness of information in this document.
== END 2024-03-02 08:06 | disposition home or self-care (01) ==
LOC: HEMC 07:49
PROVIDERS: PCP Family Medicine; Visit Provider Internal Medicine Hematology & Oncology
DX: R58 Hemorrhage, not elsewhere classified (principal); F17.290 Nicotine dependence, other tobacco product, uncomplicated
CPT/HCPCS: G0463

== ENCOUNTER 2024-03-19 11:13 | Outpatient (OUT) | payer MEDICARE, SELFPAY | END 2024-03-19 11:14 | disposition home or self-care (01) | LOC: PST 11:13 | PROVIDERS: PCP Family Medicine; Visit Provider Surgery | DX: R19.5 Other fecal abnormalities (principal) ==

== ENCOUNTER 2024-03-23 12:16 | Outpatient (OUT) | payer MEDICARE, SELFPAY ==
--- NOTE | 2024-03-23 | XR_ITS ---
The [address] [address] Patient Name: GILLIAN HERMOSILLO MRN: [id number] date: 1955 Sex: F Assigned Patient Location: Current Patient Location: Accession/Order Number: [id number] Exam Date: 03/23/2024 12:22 Report Date: 03/23/2024 13:18 At the request of: DANNA KAPOOR Procedure: XR knee ANDREAS 4V EXAMINATION: XR knee ANDREAS 4V HISTORY: BILATERAL KNEE PAIN COMPARISON: No relevant comparison available. FINDINGS: RIGHT FINDINGS: BONES: Normal. No significant arthropathy or acute abnormality. Minimal marginal osteophyte formation SOFT TISSUES: Negative. No visible soft tissue swelling. OTHER: Negative. LEFT FINDINGS: BONES: Normal. No significant arthropathy or acute abnormality. Minimal marginal osteophyte formation SOFT TISSUES: Negative. No visible soft tissue swelling. OTHER: Negative. XR/XR knee ANDREAS 4V IMPRESSION: No acute abnormality Electronically authenticated by: ENIO MOHAN Date: 03/23/2024 13:18
== END 2024-03-23 12:17 | disposition home or self-care (01) ==
LOC: EC 12:16
PROVIDERS: PCP Family Medicine; Visit Provider Orthopaedic Surgery
DX: M17.0 Bilateral primary osteoarthritis of knee (principal)
CPT/HCPCS: 73564

== ENCOUNTER 2024-04-01 10:10 | Outpatient (OUT) | payer MEDICARE, SELFPAY ==
--- NOTE | 2024-04-01 10:12 | CT_ITS ---
[address] [address] Patient Name: GILLIAN HERMOSILLO MRN: [id number] date: 1955 Sex: F Assigned Patient Location: CT Current Patient Location: Accession/Order Number: [id number] Exam Date: 04/01/2024 10:23 Report Date: 04/02/2024 05:08 At the request of: GEORGES BURNS Procedure: CT lung screening low-dose EXAM: CT lung screening low-dose HISTORY: Tobacco Use Z72.0 COMPARISON: None. TECHNIQUE: Routine low-dose CT lung screen without intravenous contrast. Dose reduction techniques were achieved by using automated exposure control and/or adjustment of mA and/or kV according to patient size and/or use of iterative reconstruction technique. FINDINGS: Cardiovascular: Moderate atheromatous calcification left anterior descending coronary artery. Mild atheromatous calcification along the aortic arch, origin of the left subclavian artery and proximal abdominal aorta. Lung: Paraseptal and centrilobular emphysema. Mild irregular biapical pleural parenchymal scarring. Mild reticular atelectasis within the lingula. Nodules: There is a 6.5 mm noncalcified pleural-based right middle lobe nodule (series 3 image 101). There is a 3 mm noncalcified perifissural nodule right major fissure (series 3 image 98). There is a 4.6 mm noncalcified left apical nodule (series 3 image 18). There is a 2 mm noncalcified left upper lobe nodule (series 3 image 93). There is a 6.6 mm noncalcified pleural-based left upper lobe nodule abutting the left major fissure (series 3 image 101). There is a 2.3 mm noncalcified left lower lobe nodule (series 3 image 101). Lymphadenopathy: There are no pathologically enlarged lymph nodes. Other: Small amount of retained secretions within the trachea. The esophagus is unremarkable. Asymmetric enlargement of the right lobe of the thyroid gland containing a 3.2 cm hypodense nodule. Please refer to the thyroid ultrasound examination dated 01/05/2022 for additional information. Upper abdomen: Mild atheromatous calcification proximal abdominal aorta. Osseous: The bony structures are osteopenic. There is mild dextroscoliosis of the thoracic spine. There are discogenic degenerative changes at numerous levels along the spine. CT/CT lung screening low-dose IMPRESSION: Paraseptal and centrilobular emphysema. Noncalcified nodules ranging in size from 2 mm to 6.6 mm. There are no pathologically enlarged lymph nodes. A low-dose CT examination of the chest in 6 months is recommended. Atherosclerotic disease as described. Small amount of retained secretions within the trachea. Asymmetrical enlargement of the right lobe of the thyroid gland containing a 3.2 cm hypodense nodule. Please refer to the thyroid ultrasound examination dated 01/05/2022 for additional information. Chronic osseous findings as described. Lung rads score 3. A low-dose CT examination of the chest in 6 months is recommended. Electronically authenticated by: SHAREE EUCEDA Date: 04/02/2024 05:08
--- OUTSIDE RECORDS SUMMARY | 2024-04-01 10:30 | XMS_ITS | CCD ---
Author Organization [facility] Care Team Providers Care Research And Development Specialist Name Role Phone PHYSICIAN, DEFAULT Unavailable Unavailable PHYSICIAN, DEFAULT Unavailable Unavailable JANINE VALLELAS Unavailable Unavailable JI, ABDULAZIM Unavailable Unavailable JI, ABDULAZIM Unavailable Unavailable JANINE VALLELAS Unavailable Unavailable ANAMIKA VALLE Unavailable Unavailable NM Unavailable Unavailable JI, ABDULAZIM Unavailable Unavailable NM Unavailable Unavailable BOUCHRA HARPER Unavailable Unavailable ANAMIKA VALLE Referring Unavailable ANAMIKA VALLE Primary Care Unavailable ANAMIKA VALLE Referring Unavailable ANAMIKA VALLE Primary Care Unavailable Anamika Valle Primary Care Provider [phone] MD Anamika Valle Primary Care Provider [phone] Self, Referral Attending Provider Unavailable DR [...] Unavailable Anamika Valle MD Primary Care Provider MD Anamika Valle Primary Care Provider MD Anamika Valle Referring Provider Self, Referral Attending Provider Unavailable Anamika Valle Referring Unavailable Anamika Valle Primary Care Unavailable Self, Referral Attending Unavailable Self, Referral Admitting Unavailable Anamika Valle Primary Care Physician GRANT, GEORGES Attending Unavailable GRANT, GEORGES Admitting Unavailable Rubén MANUEL Attending Unavailable Anamika Valle Referring Unavailable GRANT, GEORGES Attending Unavailable GRANT, GEORGES Admitting Unavailable MONIE NAVARRO Attending Unavailable MONIE NAVARRO Attending Unavailable SEVERO CURRY Attending Unavailable MONIE NAVARRO Attending Unavailable MONIE NAVARRO Attending Unavailable SHIRIN ESCOBAR Attending Unavailable SEMAJ SANCHEZ Attending Unavailable Allergies Allergy Classification Reported Allergen(s) Allergy Type Date of Onset Reaction(s) Facility (15 sources) Codeine; Translations: [CODEINE] Drug Allergy 11-30-19 05 Nausea Only, Gastrointestinal irritation (disorder) [facility] Repository (1 source) Etodolac Drug Allergy 03-21-19 17 [facility] Repository (1 source) no latex allergy [Other] Propensity to adverse reactions 11-30-19 05 [facility] (7 sources) OTHER; Translations: [OTHER] Propensity to adverse reactions (disorder) 11-30-19 05 [facility] Repository (6 sources) Etodolac Allergy to substance 09-22-19 23 [facility] (6 sources) Sulfonamides (Antibiotic) Drug Allergy 07-14-19 22 Hives [facility] (1 source) Unable to Assess Drug allergy (disorder) 10-07-19 19 [facility] Repository (3 sources) Ciprofloxacin; Translations: [ciprofloxacin] Drug Allergy Patient reported problems (finding) [facility] Medications Current Medications Medication Drug Class(es) Dates Sig (Normalized) Sig (Original) amitriptyline hydrochloride 50 mg oral tablet (9 sources) Tricyclic Antidepressant Start: 09-20-2022 amitriptyline (Elavil) 50 MG tablet 09/20/2022 Active Comment on above: Take 50 mg by mouth every evening. Biotin (2 sources) Start: 01-27-2024 biotin Refills(s) 0 Start Date: 01/27/24 Status: Ordered cephalexin 500 mg oral capsule (2 sources) Cephalosporin Antibacterial Start: 06-01-2018 take 1 capsule by mouth three times daily cephALEXin (KEFLEX) 500 MG capsule Take 1 capsule by mouth 3 times daily 21 capsule 0 06/01/2018 Active cyclobenzaprine hydrochloride 10 mg oral tablet (7 sources) Muscle Relaxant Start: 09-14-2022 take 1 [...] daily. doxepin hydrochloride 10 mg oral capsule (9 sources) Tricyclic Antidepressant Start: 08-21-2022 take 1 capsule by mouth at bedtime as needed doxepin (SINEquan) 10 MG capsule TAKE 1 TO 2 CAPSULES BY MOUTH AT BEDTIME NEEDED FOR ANXIETY 08/21/2022 Active Comment on above: TAKE 1 TO 2 CAPSULES BY MOUTH AT BEDTIME NEEDED FOR ANXIETY famotidine 40 mg oral tablet (9 sources) Histamine-2 Receptor Antagonist Start: 09-14-2022 take [...] ophthalmic suspension (2 sources) Prostaglandin Analog Start: 01-27-2024 take 1 drop(s) into the eye(s) once daily in the evening latanoprost 0.005% ophthalmic emulsion 1 drop(s), Eye-Both, qPM, Refill(s) 0 Start Date: 01/27/24 Status: Ordered meloxicam 7.5 mg oral tablet (7 sources) Nonsteroidal Anti-inflammatory Drug Start: 10-17-2022 meloxicam (Mobic) 7.5 MG tablet 1 (one) time each day at the same time 10/17/2022 Active Comment on above: Take 1 tablet by diego th every afternoon. Multi Vitamins oral tablet (2 sources) Start: 01-27-2024 take 1 tablet by mouth once daily Multi Vitamins oral tablet 1 tab(s), Oral, Daily, Refill(s) 0 Start Date: 01/27/24 Status: Ordered pantoprazole 40 mg delayed release oral tablet (9 sources) Proton Pump Inhibitor Start: 07-15-2022 take 1 tablet by mouth in the morning pantoprazole (ProtoNix) 40 MG EC tablet Take 40 mg by mouth in the morning. 07/15/2022 Active Comment on above: Take 1 tablet by diego th every afternoon. sucralfate 1000 mg oral tablet (7 sources) Aluminum Complex Start: 09-14-2022 take 1 [...] EMPTY STOMACH) tiZANidine 4 mg oral tablet (8 sources) Central alpha-2 Adrenergic Agonist Start: 01-21-2023 [...] diego th every 12 hours. estrogens, conjugated (senior living) 0.625 mg oral tablet (1 source) Estrogen [...] [ENC SCREENING HUMAN PAPILLOMAVIRUS] Onset: 3 Episodic Mycoses (2 sources) Pain in toe; Translations: [Tinea unguium] 03-19-2024 Episodic Neoplasms of unspecified nature or uncertain behavior (2 sources) Neoplasm of uncertain behavior of skin; Translations: [Neoplasm of uncertain behavior of skin] 03-19-2024 Episodic Occlusion or stenosis of precerebral arteries (4 sources) Occlusion and stenosis of bilateral carotid arteries; Translations: [OCCLUSION AND STENOS JEANNE CAROTID ART] Onset: 2 Chronic Other bone disease and musculoskeletal deformities (2 sources) Osteopenia 01-27-2024 Episodic Other circulatory disease (2 sources) Raynaud's phenomenon 01-27-2024 Chronic Other connective tissue disease (4 sources) Radial styloid tenosynovitis [de Quervain]; Translations: [RADIAL STYLOID TENOSYNOVITIS [DE QUERVAIN]] Onset: 8 Episodic Other connective tissue disease (8 sources) Pain in left foot; Translations: [Pain in left foot] Onset: 3 09-21-2022 Episodic Other connective tissue disease (2 sources) Pain in right foot; Translations: [Pain in right foot] 03-19-2024 Episodic Other diseases of kidney and ureters [...] Varicose veins of lower extremity 01-27-2024 Episodic Viral infection (2 sources) Verruca plantaris; Translations: [Plantar wart] 03-19-2024 Episodic Past or Other Problems Problem Classification [...] Test Name Value Interpretation Reference Range Facility Lab Miscellaneous-LCon 03-23 Lab Miscellaneous COMMENT Invalid Interpretation Code [facility] Comment on above: Result Comment: Test Ordered: [id number] von Willebrand Genes Result Comment [facility] PDF report to be sent separately This test was developed and its performance characteristics determined by [facility]. It has not been cleared or approved by the Food and Drug Administration. Performed at: [address] [id number] PhD Alfred Hwang Performed By: #### 1 [id number] #### [facility] [address] [place] [address] Lupus Anticoagon 02-10-2024 aPTT.lupus sensitive Coag (PPP) [Time] 29.4 second(s) Invalid Interpretation Code 0.0-43.5 [facility] Comment on above: Performed By: #### 2 [id number] #### [facility] [address] [place] [address] dRVVT Coag (PPP) [Time] 32.8 second(s) Invalid Interpretation Code 0.0-47.0 [facility] Comment on above: Performed By: #### 2 [id number] #### [facility] [address] [place] [address] Lupus anticoagulant two screening tests W Reflex Coag (PPP) [Interp] Comment: Invalid Interpretation Code [facility] Comment on above: Result Comment: No l upus anticoagulant was detected. Performed at: [address] [id number] MD Andrew Wilburn Performed By: #### 2 [id number] #### [facility] [address] [place] [address] vWF Activityon 02-10-2024 vWf ristocetin cofactor act actual/normal Platelet aggregation (PPP) [Relative time] 346 % High 50-200 [facility] Comment on above: Result Comment: Perf ormed at: [address] [id number] MD Andrew Wilburn Performed By: #### 2 [id number] #### [facility] [address] [place] [address] von Willebrand Factor (vWF) Agon 02-10-2024 vWf Ag actual/normal IA (PPP) [Relative mass conc] 368 % High 50-200 [facility] Comment on above: Result Comment: VWF [...] developed and its performance characteristics determined by [employer]. It has not been cleared or approved by the Food and Drug Administration. Performed at: [address] [id number] MD Andrew Wilburn Performed By: #### 2 [id number] #### [facility] [address] [place] [id number] COAGULATIONOrdered By: Jeffrey Nelson on 02-06-2024 Platelet function (closure time) collagen+EPINEPHrine induced (Bld) [Time] 96 s Normal 70 - 138 second(s) [facility] Man [facility] Comment on above: Interpretive Data: N june ANDINO vWD Glarajimann s Thrombasthenia ------- ------ ------- COL/EPI Normal Abnormal Abnormal Abnormal Col/ADP Normal Normal Abnormal Abnormal Lab Miscellaneous-LCon 02-05 Test Code 407265 Invalid Interpretation Code [facility] Comment on above: Performed By: #### 1 [id number] #### [facility] [address] [place] [address] Test Name von Willebrand Invalid Interpretation Code [facility] Comment on above: Performed By: #### 1 [id number] #### [facility] [address] [id number] Plt Function Assayon 024 Platelet function (closure time) collagen+EPINEPHrine induced (Bld) [Time] 96 second(s) Normal 70-138 [facility] Comment on above: Result Comment: Ángel ross ASA vWD Dilip???s Thrombasthenia ------- ------ ------- COL/EPI Normal Abnormal Abnormal Abnormal Col/ADP Normal Normal Abnormal Abnormal Performed By: #### 1 [id number] #### [facility] [address] [place] [address] Reference Laboratory Testing Ordered By: Paulette Frye on 02-06-2024 Test Code 485780 1 Invalid Interpretation Code [facility] Test Name von Willebrand Invalid Interpretation Code [facility] Summaryon 1 04-06-2023 Ambulatory Visit Summary Ambulatory Visit Summary XENA EWING :1955 Visit Date:02/05/2024 Ambulatory Visit Instructions Your Diagnosis Positive fecal occult blood test Your Care Team Attending Physician - MAR CLARKE, Rubén Holman Primary Care Physician - Anamika Valle MD Referring Physician - Anamika Valle MD This [...] for choosing us for your care. Normal [facility] Provider Letteron 01-10-2024 Provider Letter Provider Letter January 10, 2024 XENA EWING [address] [place] [address] : 1955 Dear Ms. Ewing, We have been trying to reach you with no success regarding a referral from Dr Valle. It is important that you return our call upon receiving this letter. Also, at the time of your call, please provide us with your current information. Thank you for your prompt attention to this matter. Sincerely, [facility] General Surgery [phone] Normal [facility] MM screening mammo BI w/CADo n 12-27-2023 MM screening mammo BI w/CAD [facility] [place] [address] [place] [address] Mammography Report Signed Patient: Xena Ewing MR#: [id number] : 1955 Acct:[id number] Age/Sex: 68 / F ADM Date: 12/27/23 Loc: [place] Room: Type: [facility] Attending Dr: Referral Self Copies to: Anamika [...] Schmidt Jr., D.O.12/27/2023 1:07 PM Dictation Location: [facility] Transcribed By: PINO 12/27/231306 Dictated By: Blake Schmidt Jr, DO 12/27/231303 Signed By: 12/27/231306 Normal [facility] Panel Informationon 12-16 [facility] CNOV 10-23-2022 CNOV Office Visit (GENBMI ) XENA EWING ([id number]) 1955 [facility] Date Time Provider Department 10/23/22 11:30 AM [...] Surgery cc: Referring provider Anamika Valle [address] [facility] [address] Medical Decision Making: Problems: Low: Stable chronic illness Data: Independent interpretation of test [facility] other [facility] Medical Decision Making Level: 3 - Low Referring Provider: ANAMIKA VALLE [[id number]] Allergies As of Date: 10/23/2022 Noted Allergy [...] ANXIETY - (more content not included)... Normal [facility] PAP ACOG PANEL 2: 30 to 65on 04-26-2022 . . Normal [facility] Comment on above: Result Comment: Perf ormed at: WB Performed By: #### 4 [id number] #### [facility] [address] [address] [address] Kayy Virgen Age Gdln ACOG Testing 30-65 Normal [facility] Comment on above: Performed By: #### 4 [id number] #### [facility] [address] [place] [address] Dr. Kayy Virgen DIAGNOSIS: Comment Normal [facility] Comment on above: Result Comment: UNSA TISFACTORY FOR EVALUATION. Performed at: WB Performed By: #### 4 [id number] #### [facility] [address] [place] [address] Dr. Kayy Virgen HPV Aptima Negative Normal Negative [facility] Comment on above: Result Comment: This nucleic acid amplification test detects fourteen high-risk HPV types (16,18,31,33,35,39,45,51,52,56,58,59,66,68) without differentiation. Performed at: =G Performed By: #### 4 [id number] #### [facility] [address] [place] [address] Dr. Kayy Virgen HPV Genotype Reflex Comment Normal [facility] Comment on above: Result Comment: Crit eria not met, HPV Genotype not performed. Performed at: WB Performed By: #### 4 [id number] #### [facility] [address] [place] [address] Dr. Kayy Virgen Methodology: Comment Normal [facility] Comment on above: Result Comment: This liquid based ThinPrep(R) pap test was screened with the use of an image guided system. Performed at: WB Performed By: #### 4 [id number] #### [facility] [address] [place] [address] Dr. Kayy Virgen Note: Comment Normal [facility] Comment on above: Result Comment: The Pap smear is a screening test designed to aid in the detection of premalignant and malignant conditions of the uterine cervix. It is not a diagnostic procedure and should not be used as the sole means of detecting cervical cancer. Both false-positive and false-negative reports do occur. . Performed at: WB Performed By: #### 4 [id number] #### [facility] [address] [place] [address] Dr. Kayy Virgen Performed by: Comment Normal [facility] Comment on above: Result Comment: Arturo Peters, Newspaper Writer (ASCP) Performed at: [facility] Performed By: #### 4 [id number] #### [facility] [address] [place] [address] Dr. Kayy Virgen QC reviewed by: Comment Normal [facility] Comment on above: Result Comment: Pepe Cordova, Supervisory Newspaper Writer (ASCP) Performed at: WB Performed By: #### 4 [id number] #### [facility] [address] [address] [address] Kayy Virgen Recommendation: Comment Normal [facility] Comment on above: Result Comment: Sugg est follow up as clinically appropriate. Performed at: WB Performed By: #### 4 [id number] #### [facility] [address] [address] [address] Kayy Virgen Specimen adequacy: Comment Normal [facility] Comment on above: Result Comment: Spec imen processed and examined but unsatisfactory for evaluation of epithelial abnormality because of insufficient cellularity. Performed at: WB Performed By: #### 4 [id number] #### [facility] [address] [place] [address] Dr. Kayy Virgen US THYROIDon 01-05-2022 US [...] TR 4 nodule, previously biopsied TI-RADS: The [employer] TI-RADS committee's white paper recommendations for thyroid lesions classified as TR3 (mildly suspicious) are listed below: > 1.5 cm. Follow-up ultrasound in 1, 3, and 5 years. > 2.5 cm. FNA. J. Am Anais Radiol 2017;14:587-595. Electronically authenticated by: ENIO MOHAN Date: 2022-01-05 15:25 Normal [facility] T4, T3U, FTI LABCORPon 11-10 Free Thyroxine Index 2.0 Normal 1.2-4.9 [facility] Comment on above: Performed By: #### T HYLC ####[facility] [address] [address]Dr. Kayy Virgen T3 Uptake 26 % Normal 24-39 [facility] Comment on above: Performed By: #### T HYLC ####[facility] [address] [place], [place] [address]Dr. Kayy Virgen T4 [Mass/Vol] 7.5 ug/dL Normal 4.5-12.0 [facility] Comment on above: Performed By: #### T HYLC ####[facility] [address] [place], [place] [address]Dr. Kayy Virgen CBC AUTO DIFFon 11-09-2021 BASO # 0.1 103/ul Normal 0.0-0.1 [facility] Comment on above: Performed By: #### C BC ####[facility] [address] [place], [place] [address]Dr. Kayy Param Basophils/100 WBC (Bld) 2.1 % Critically high 0.2-2.0 [facility] Comment on above: Performed By: #### C BC ####[facility] [address] [place], [place] [address]Dr. Kayy Virgen EO # 0.2 103/ul Normal 0.0-0.7 [facility] Comment on above: Performed By: #### C BC ####[facility] [address] [place], [place] [address]Dr. Shereesamia Virgen Eosinophils/100 WBC (Bld) 5.1 % Normal 0.9-7.0 [facility] Comment on above: Performed By: #### C BC ####[facility] [address] [place], [place] [address]Dr. Kayy Virgen Erythrocyte distribution width (RBC) [Ratio] 14.6 % Normal 11.0-15.0 [facility] Comment on above: Performed By: #### C BC ####[facility] [address] [id number]. Kayy Virgen Hematocrit (Bld) [Volume fraction] 38.5 % Normal 36.0-48.0 [facility] Comment on above: Performed By: #### C BC ####[facility] [address] [id number]. Kayy Param Hemoglobin (Bld) [Mass/Vol] 12.4 g/dL Normal 12.0-16.0 [facility] Comment on above: Performed By: #### C BC ####[facility] [address] [address]Dr. Shereesamia Virgen IG # 0.01 10e3/ul Normal 0.00-0.03 [facility] Comment on above: Performed By: #### C BC ####[facility] [address] [address]Dr. Kayy Virgen IG % 0.2 % Normal 0.0-0.5 [facility] Comment on above: Performed By: #### C BC ####[facility] [address] [address]Dr. Shereesamia Virgen LYMPH # 1.5 103/ul Normal 1.2-3.8 [facility] Comment on above: Performed By: #### C BC ####[facility] [address] [address]Dr. Shereesamia Virgen Lymphocytes/100 WBC (Bld) 33.7 % Normal 20.5-60.0 [facility] Comment on above: Performed By: #### C BC ####[facility] [address] [address]Dr. Shereesamia Virgen MANUAL DIFF REQ NO Normal [facility] Comment on above: Performed By: #### C BC ####[facility] [address] [address]Dr. Kayy Param MCH (RBC) [Entitic mass] 26.7 pg Normal 26.7-34.0 [facility] Comment on above: Performed By: #### C BC ####[facility] [address] [place], [place] [address]Dr. Kayy Praam MCHC (RBC) [Mass/Vol] 32.2 g/dL Normal 29.9-35.2 [facility] Comment on above: Performed By: #### C BC ####[facility] [address] [id number]. Kayy Param MCV (RBC) [Entitic vol] 82.8 fL Normal 81.0-99.0 [facility] Comment on above: Performed By: #### C BC ####[facility] [address] [id number]. Shereesamia Param MONO # 0.5 103/ul Normal 0.3-0.8 [facility] Comment on above: Performed By: #### C BC ####[facility] [address] [address]Dr. Kayy Virgen Monocytes/100 WBC (Bld) 11.9 % Normal 1.7-12.0 [facility] Comment on above: Performed By: #### C BC ####[facility] [address] [address]Dr. Shereesamia Param NEUT # 2.0 103/ul Normal 1.4-6.5 [facility] Comment on above: Performed By: #### C BC ####[facility] [address] [id number]. Shereesamia Virgen Neutrophils/100 WBC (Bld) 47.0 % Normal 43.0-75.0 [facility] Comment on above: Performed By: #### C BC ####[facility] [address] [place] [id number]. Kayy Param Platelet mean volume (Bld) [Entitic vol] 9.7 fL Normal 9.5-13.5 [facility] Comment on above: Performed By: #### C BC ####[facility] [address] [id number]. Kayy Virgen PLT 269 103/ul Normal 150-450 [facility] Comment on above: Performed By: #### C BC ####[facility] [address] [id number] Virgen RBC 4.65 106/ul Normal 4.20-5.40 [facility] Comment on above: Performed By: #### C BC ####[facility] [address] [id number] Virgen WBC 4.3 103/ul Normal 4.0-11.0 [facility] Comment on above: Performed By: #### C BC ####[facility] [address] [id number]. Kayy Virgen GLYCOHEMOGLOBIN A1Con 2021 ADA RECOMMENDATION SEE BELOW Normal [facility] Comment on above: Result Comment: ADA RECOMMENDED LIMIT 4.0 - 6.0 ADA THERAPEUTIC TARGET < 7.0 ACTION SUGGESTED > 7.0 Performed By: #### A 1C #### [facility] [address] [address] [address] Kayy Virgen Glucose [Mass/Vol] 117 mg/dL Normal [facility] Comment on above: Performed By: #### A 1C #### [facility] [address] [address] [address] Kayy Virgen HbA1c (Bld) [Mass fraction] 5.7 % Normal 4.5-6.2 [facility] Comment on above: Performed By: #### A 1C #### [facility] [address] [address] [address] Kayy Virgen IRONon 11-09-2021 Iron [Mass/Vol] 100.0 ug/dL Normal 50.0-170.0 [facility] Comment on above: Performed By: #### I STEPHANI #### [facility] [address] [address] [address] Kayy Virgen PROF 14(COMP METB)on 022 Albumin [Mass/Vol] 4.0 g/dL Normal 3.4-5.0 [facility] Comment on above: Performed By: #### C MP, TSH #### [facility] [address] [address] [address] Kayy Virgen Albumin/Globulin [Mass ratio] 1.1 {ratio} Normal [facility] Comment on above: Performed By: #### C MP, TSH #### [facility] [address] [address] [address] Kayy Virgen ALP [Catalytic activity/Vol] 109 U/L Normal 46-116 [facility] Comment on above: Performed By: #### C MP, TSH #### [facility] [address] [address] [address] Kayy Virgen ALT [Catalytic activity/Vol] 26 U/L Normal 14-59 [facility] Comment on above: Performed By: #### C MP, TSH #### [facility] [address] [address] [address] Kayy Virgen Anion gap [Moles/Vol] 11.2 mmol/L Normal [facility] Comment on above: Performed By: #### C MP, TSH #### [facility] [address] [address] [address] Kayy Virgen AST [Catalytic activity/Vol] 58 U/L Critically high 15-37 [facility] Comment on above: Performed By: #### C MP, TSH #### [facility] [address] [address] Dr. Kayy Virgen Bilirubin [Mass/Vol] 0.4 mg/dL Normal 0.2-1.0 [facility] Comment on above: Performed By: #### C MP, TSH #### [facility] [address] [address] [address] Kayy Virgen Calcium [Mass/Vol] 9.8 mg/dL Normal 8.5-10.1 [facility] Comment on above: Performed By: #### C MP, TSH #### [facility] [address] [address] [address] Kayy Virgen Chloride [Moles/Vol] 103 mmol/L Normal 98-107 [facility] Comment on above: Performed By: #### C MP, TSH #### [facility] [address] [address] [address] Kayy Virgen CO2 [Moles/Vol] 28.2 mmol/L Normal 21.0-32.0 [facility] Comment on above: Performed By: #### C MP, TSH #### [facility] [address] [address] [address] Kayy Virgen Creatinine [Mass/Vol] 0.98 mg/dL Normal 0.55-1.02 [facility] Comment on above: Performed By: #### C MP, TSH #### [facility] [address] [address] [address] Kayy Virgen EGFR-AF ETHIOPIAN >60 Normal >=60 [facility] Comment on above: Performed By: #### C MP, TSH #### [facility] [address] [address] [address] Kayy Virgen EGFR-NON AF ETHIOPIAN 57 mL/min/1.73m2 Critically low >=60 [facility] Comment on above: Performed By: #### C MP, TSH #### [facility] [address] [address] [address] Kayy Virgen Globulin (S) [Mass/Vol] 3.8 g/dL Normal [facility] Comment on above: Performed By: #### C MP, TSH #### [facility] [address] [address] [address] Kayy Virgen Glucose [Mass/Vol] 102 mg/dL Normal 74-106 [facility] Comment on above: Performed By: #### C MP, TSH #### [facility] [address] [address] [address] Kayy Virgen Potassium [Moles/Vol] 4.4 mmol/L Normal 3.5-5.1 [facility] Comment on above: Performed By: #### C MP, TSH #### [facility] [address] [address] [address] Kayy Virgen Protein [Mass/Vol] 7.8 g/dL Normal 6.4-8.[address] [facility] Comment on above: Performed By: #### C MP, TSH #### [facility] [address] [address] [address] Kayy Virgen Sodium [Moles/Vol] 138 mmol/L Normal 136-145 [facility] Comment on above: Performed By: #### C MP, TSH #### [facility] [address] [address] [address] Kayy Virgen Urea nitrogen [Mass/Vol] 22.0 mg/dL Critically high 7.0-18.0 [facility] Comment on above: Performed By: #### C MP, TSH #### [facility] [address] [address] [address] Kayy Virgen Urea nitrogen/Creatinine [Mass ratio] 22.4 mg/mg Normal [facility] Comment on above: Performed By: #### C MP, TSH #### [facility] [address] [address] [address] Kayy Virgen TSHon 11-09-2021 TSH 1.200 uIU/mL Normal 0.358-3.740 [facility] Comment on above: Performed By: #### C MP, TSH #### [facility] [address] [place] [address] Dr. Kayy Virgen AMYLASEon 08-31-2021 Amylase [Catalytic activity/Vol] 34 U/L Normal 25-115 [facility] Comment on above: Performed By: #### A MY, CMP, LIPA ####[facility] [address] [place], [place] [address]Dr. Kayy Virgen CBC AUTO DIFFon 08-31-2021 BASO # 0.1 103/ul Normal 0.0-0.1 [facility] Comment on above: Performed By: #### C BC ####[facility] [address] [address]Dr. Kayy Virgen Basophils/100 WBC (Bld) 0.8 % Normal 0.2-2.0 [facility] Comment on above: Performed By: #### C BC ####[facility] [address] [place], [place] [address]DrIrene Virgen EO # 0.0 103/ul Normal 0.0-0.7 [facility] Comment on above: Performed By: #### C BC ####[facility] [address] [place], [place] [address]Dr. Kayy Virgen Eosinophils/100 WBC (Bld) 0.6 % Critically low 0.9-7.0 [facility] Comment on above: Performed By: #### C BC ####[facility] [address] [address]Dr. Kayy Virgen Erythrocyte distribution width (RBC) [Ratio] 13.9 % Normal 11.0-15.0 [facility] Comment on above: Performed By: #### C BC ####[facility] [address] [address]Dr. Kayy Virgen Hematocrit (Bld) [Volume fraction] 37.7 % Normal 36.0-48.0 [facility] Comment on above: Performed By: #### C BC ####[facility] [address] [address]Dr. Kayy Virgen Hemoglobin (Bld) [Mass/Vol] 12.3 g/dL Normal 12.0-16.0 [facility] Comment on above: Performed By: #### C BC ####[facility] [address] [place], [place] [address]Dr. Kayy Virgen IG # 0.02 10e3/ul Normal 0.00-0.03 [facility] Comment on above: Performed By: #### C BC ####[facility] [address] [place], [place] [address]Dr. Kayy Virgen IG % 0.3 % Normal 0.0-0.5 [facility] Comment on above: Performed By: #### C BC ####[facility] [address] [place], [place] [address]Dr. Kayy Virgen LYMPH # 1.4 103/ul Normal 1.2-3.8 [facility] Comment on above: Performed By: #### C BC ####[facility] [address] [place], [place] [address]Dr. Kayy Virgen Lymphocytes/100 WBC (Bld) 20.8 % Normal 20.5-60.0 [facility] Comment on above: Performed By: #### C BC ####[facility] [address] [address]Dr. Kayy Param MANUAL DIFF REQ NO Normal [facility] Comment on above: Performed By: #### C BC ####[facility] [address] [address]Dr. Kayy Virgen MCH (RBC) [Entitic mass] 26.9 pg Normal 26.7-34.0 [facility] Comment on above: Performed By: #### C BC ####[facility] [address] [place], [place] [address]Dr. Kayy Param MCHC (RBC) [Mass/Vol] 32.6 g/dL Normal 29.9-35.2 [facility] Comment on above: Performed By: #### C BC ####[facility] [address] [place], [place] [address]Dr. Shereesamia Virgen MCV (RBC) [Entitic vol] 82.5 fL Normal 81.0-99.0 [facility] Comment on above: Performed By: #### C BC ####[facility] [address] [place], [place] [address]Dr. Kayy Param MONO # 0.6 103/ul Normal 0.3-0.8 [facility] Comment on above: Performed By: #### C BC ####[facility] [address] [place], [place] [address]Dr. Kayy Virgen Monocytes/100 WBC (Bld) 8.8 % Normal 1.7-12.0 [facility] Comment on above: Performed By: #### C BC ####[facility] [address] [place], [place] [address]Dr. Shereesamia Param NEUT # 4.5 103/ul Normal 1.4-6.5 [facility] Comment on above: Performed By: #### C BC ####[facility] [address] [place], [place] [address]Dr. Kayy Virgen Neutrophils/100 WBC (Bld) 68.7 % Normal 43.0-75.0 [facility] Comment on above: Performed By: #### C BC ####[facility] [address] [place], [place] [id number]. Kayy Virgen Platelet mean volume (Bld) [Entitic vol] 10.2 fL Normal 9.5-13.5 [facility] Comment on above: Performed By: #### C BC ####[facility] [address] [place], [place] [address]St. Kayy Virgen PLT 265 103/ul Normal 150-450 [facility] Comment on above: Performed By: #### C BC ####[facility] [address] [place], [place] [address]Dv. Kayy Virgen RBC 4.57 106/ul Normal 4.20-5.40 [facility] Comment on above: Performed By: #### C BC ####[facility] [address] [id number]. Kayy Virgen WBC 6.5 103/ul Normal 4.0-11.0 [facility] Comment on above: Performed By: #### C BC ####[facility] [id number] Kayy Virgen CT ABD/PELVIS WO CONon 08-31 [...] DANNA CASTLE Date: 2021-08-31 12:25 Normal [facility] ER URINE PROFILEon 2 Bilirubin Ql (U) Negative Normal NEGATIVE [facility] Comment on above: Performed By: #### E RUR #### [facility] [address] [place] [address] Dr. Kayy Virgen Clarity (U) CLEAR Normal CLEAR [facility] Comment on above: Performed By: #### E RUR #### [facility] [address] [place] [address] Dr. Kayy Virgen Color (U) LT. YELLOW Normal YELLOW [facility] Comment on above: Performed By: #### E RUR #### [facility] [address] [place] [address] Dr. Kayy Virgen ERUDODIE A micrscopic examination will be performed if indicated. Normal [facility] Comment on above: Performed By: #### E RUR #### [facility] [address] [place] [address] Dr. Kayy Virgen Glucose Ql (U) Negative Normal NEGATIVE [facility] Comment on above: Performed By: #### E RUR #### [facility] [address] [place] [address] Dr. Kayy Virgen Hemoglobin Ql (U) Negative Normal NEGATIVE [facility] Comment on above: Performed By: #### E RUR #### [facility] [address] [place] [address] Dr. Kayy Virgen Ketones Ql (U) Negative Normal NEGATIVE [facility] Comment on above: Performed By: #### E RUR #### [facility] [address] [place] [address] Dr. Kayy Virgen LEUKOCYTES Negative Normal NEGATIVE [facility] Comment on above: Performed By: #### E RUR #### [facility] [address] [place] [address] Dr. Kayy Virgen Nitrite Ql (U) Negative Normal NEGATIVE [facility] Comment on above: Performed By: #### E RUR #### [facility] [address] [place] [address] Dr. Kayy Virgen pH (U) 6.0 [pH] Normal 5-9 [facility] Comment on above: Performed By: #### E RUR #### [facility] [address] [place] [address] Dr. Kayy Virgen SPEC GRAVITY <=1.005 Abnormal 1.005-<=1.02 5 [facility] Comment on above: Performed By: #### E RUR #### [facility] [address] [place] [address] Dr. Kayy Virgen UA PROTEIN Negative Normal NEGATIVE/ TRACE [facility] Comment on above: Performed By: #### E RUR #### [facility] [address] [place] [address] Dr. Kayy Virgen UR MICRO IND NOT INDICATED Normal [facility] Comment on above: Performed By: #### E RUR #### [facility] [address] [place] [address] Dr. Kayy Virgen Urobilinogen Qn (U) 0.2 {Cuauhtemoc'U}/dL Normal 0.2 - 1. 0 [facility] Comment on above: Performed By: #### E RUR #### [facility] [address] [place] [address] Dr. Kayy Virgen LIPASEon 08-31-2021 Lipase [Catalytic activity/Vol] 73.0 U/L Normal 73.0-393.0 [facility] Comment on above: Performed By: #### A MY, CMP, LIPA #### [facility] [address] [place] [address] Dr. Kayy Virgen PROF 14(COMP METB)on 022 Albumin [Mass/Vol] 3.6 g/dL Normal 3.4-5.0 [facility] Comment on above: Performed By: #### A MY, CMP, LIPA ####[facility] [address] [address]Dr. Kayy Param Albumin/Globulin [Mass ratio] 0.9 {ratio} Normal [facility] Comment on above: Performed By: #### A MY, CMP, LIPA ####[facility] [address] [address]Dr. Shereesamia Param ALP [Catalytic activity/Vol] 98 U/L Normal 46-116 [facility] Comment on above: Performed By: #### A MY, CMP, LIPA ####[facility] [address] [address]Dr. Kayy Virgen ALT [Catalytic activity/Vol] 22 U/L Normal 14-59 [facility] Comment on above: Performed By: #### A MY, CMP, LIPA ####[facility] [address] [place], [place] [address]Dr. Kayy Virgen Anion gap [Moles/Vol] 12.6 mmol/L Normal [facility] Comment on above: Performed By: #### A MY, CMP, LIPA ####[facility] [address] [place], [place] [address]Dr. Kayy Virgen AST [Catalytic activity/Vol] 44 U/L Critically high 15-37 [facility] Comment on above: Performed By: #### A MY, CMP, LIPA ####[facility] [address] [place], [place] [address]Dr. Kayy Virgen Bilirubin [Mass/Vol] 0.5 mg/dL Normal 0.2-1.0 [facility] Comment on above: Performed By: #### A MY, CMP, LIPA ####[facility] [address] [place], [place] [address]Dr. Kayy Virgen Calcium [Mass/Vol] 9.2 mg/dL Normal 8.5-10.1 [facility] Comment on above: Performed By: #### A MY, CMP, LIPA ####[facility] [address] [place], [place] [address]Dr. Kayy Virgen Chloride [Moles/Vol] 104 mmol/L Normal 98-107 [facility] Comment on above: Performed By: #### A MY, CMP, LIPA ####[facility] [address] [address]Dr. Kayy Virgen CO2 [Moles/Vol] 24.3 mmol/L Normal 21.0-32.0 [facility] Comment on above: Performed By: #### A MY, CMP, LIPA ####[facility] [address] [address]Dr. Kayy Virgen Creatinine [Mass/Vol] 0.87 mg/dL Normal 0.55-1.02 [facility] Comment on above: Performed By: #### A MY, CMP, LIPA ####[facility] [address] [address]Dr. Kayy Virgen EGFR-AF ETHIOPIAN >60 Normal >=60 [facility] Comment on above: Performed By: #### A MY, CMP, LIPA ####[facility] [address] [place], [place] [address]Dr. Kayy Virgen EGFR-NON AF ETHIOPIAN >60 Normal >=60 [facility] Comment on above: Performed By: #### A MY, CMP, LIPA ####[facility] [address] [address]Dr. Kayy Virgen Globulin (S) [Mass/Vol] 4.0 g/dL Normal [facility] Comment on above: Performed By: #### A MY, CMP, LIPA ####[facility] [address] [address]Dr. Kayy Virgen Glucose [Mass/Vol] 96 mg/dL Normal 74-[address] [facility] Comment on above: Performed By: #### A MY, CMP, LIPA ####[facility] [address] [address]Dr. Kayy Virgen Potassium [Moles/Vol] 3.9 mmol/L Normal 3.5-5.1 [facility] Comment on above: Performed By: #### A MY, CMP, LIPA ####[facility] [address] [place], [place] [address]Mu. Kayy Virgen Protein [Mass/Vol] 7.6 g/dL Normal 6.4-8.[address] [facility] Comment on above: Performed By: #### A MY, CMP, LIPA ####[facility] [address] [place], [place] [address]Gd. Kayy Virgen Sodium [Moles/Vol] 137 mmol/L Normal 136-[address] [facility] Comment on above: Performed By: #### A MY, CMP, LIPA ####[facility] [address] [place], [place] [address]Gh. Kayy Virgen Urea nitrogen [Mass/Vol] 11.0 mg/dL Normal 7.0-18.0 [facility] Comment on above: Performed By: #### A MY, CMP, LIPA ####[facility] [address] [place], [place] [address]Ke. Kayy Virgen Urea nitrogen/Creatinine [Mass ratio] 12.6 mg/mg Normal [facility] Comment on above: Performed By: #### A MY, CMP, LIPA ####[facility] [address] [place], [place] [address]Gl. Kayy Virgen US THYROID FN ASP BXon 07-05 US THYROID FN ASP BX Begin Addendum #1 COLLECTED DATE/TIME: 06/29/2021 13:56 EDT Final Diagnosis Report for [facility] [place] [place] (A/B) RIGHT THYROID NODULE; FINE NEEDLE [...] (FNA). 2. Pathology results are pending. Normal [facility] US THYROIDon 06-21-2021 US THYROID EXAMINATION: [...] nodule. Fine needle aspiration recommended TI-RADS: The [employer] TI-RADS committee's white paper recommendations for thyroid lesions classified as TR4 (moderately suspicious) are listed below: > 1.0 cm. Follow-up ultrasound in 1, 2, 3, and 5 years. > 1.5 cm. FNA. J. Am Anais Radiol 2017;14:[id number]. Electronically authenticated by: ENIO MOHAN Date: 2021-06-21 12:10 Normal [facility] US CAROTID ART BILon 06-08- 022 US CAROTID ART JEANNE EXAMINATION: US BRAGA TID ART JEANNE HISTORY: Bilateral carotid artery occlusion ; chronic [...] by: DANNA CASTLE Date: 2021-06-08 13:16 Normal [facility] Blood Occult Stool Screen #1 on 10-13-2019 Date, Stool #1 [id number] [facility] [place], [place] Date, Stool #2 [...] 2019 Occult Blood 1 Negative Normal NEG [facility] Comment on above: Performed By: #### O BN #### [facility] [address] [place], [place] [id number] Director Of [employer]: Elisabeth Worthy MD Specimen 1 Date [facility] Comment on above: Performed By: #### O BN #### [facility] [address] [place], [place] [id number] Director Of [employer]: Elisabeth Worthy MD Specimen 1 Time 1199 Normal [facility] Comment on above: Performed By: #### O BN #### [facility] [address] [place], [place] [id number] Director Of [employer]: Elisabeth Worthy MD Specimen 2 Date NOT REPORTED Normal [facility] Comment on above: Performed By: #### O BN #### [facility] [address] [place] [address] Director Of [employer]: Elisabeth Worthy MD Specimen 2 Time NOT REPORTED Normal [facility] Comment on above: Performed By: #### O BN #### [facility] [address] [place], [place] [id number] Director Of [employer]: Elisabeth Worthy MD Specimen 3 Date NOT REPORTED Normal [facility] Comment on above: Performed By: #### O BN #### [facility] [address] [place], [place] [id number] Director Of [employer]: Elisabeth Worthy MD Specimen 3 Time NOT REPORTED Normal [facility] Comment on above: Performed By: #### O BN #### [facility] [address] [place], [place] [id number] Director Of [employer]: Elisabeth Worthy MD Occult Blood 2 NOT REPORTED Normal NEG [facility] Comment on above: Performed By: #### O BN #### [facility] [address] [place], [place] [id number] Director Of [employer]: Elisabeth Worthy MD Occult Blood 3 NOT REPORTED Normal NEG [facility] Comment on above: Performed By: #### O BN #### [facility] [address] [place], [place] [id number] Director Of [employer]: Elisabeth Worthy MD Free Thyroxine Indexon 10-07 FTI Ratio 2.0 ug/dL Normal 1.4-3.1 [facility] Comment on above: Performed By: #### F TI, FE #### [address] [id number] Director [employer]: Otoniel Ash MD #### TSH, LIPR, CP, GLYHGB, CDP #### [facility] [address] [place], [place] [id number] Director Of [employer]: Elisabeth Worthy MD T4 [Mass/Vol] 29.74 % Normal 22.5-37.0 [facility] Comment on above: Performed By: #### F TI, FE #### [address] [place], [place] [address] Director Of [employer]: Otoniel Ash MD #### TSH, LIPR, CP, GLYHGB, CDP #### [facility] [address] [place] [address] Director Of [employer]: Elisabeth Worthy MD T4 [Mass/Vol] 6.6 ug/dL Normal 4.5-10.9 [facility] Comment on above: Performed By: #### F TI, FE #### [address] [id number] Director [employer]: Otoniel Ash MD #### TSH, LIPR, CP, GLYHGB, CDP #### [facility] [address] [place] [address] Director Of [employer]: Elisabeth Worthy MD Ironon 10-08-2019 Iron [Mass/Vol] 73 ug/dL Normal 37-145 [facility] Comment on above: Performed By: #### F TI, FE #### [address] [id number] Director Of [employer]: Otoniel Ash MD #### TSH, LIPR, CP, GLYHGB, CDP #### [facility] [address] [place] [address] [place] [address] Director Of [employer]: Elisabeth Worthy MD T3 uptake and FTIon 10-08-19 Free Thyroxine Index 2 ug/dL 1.4 - 3 .1 ug/dL [place] T4 [Mass/Vol] 29.74 % 22.5 - 37 % [place] T4, Total 6.6 ug/dL 4.5 - 10.9 ug/dL [place] CBC Auto Differentialon 09-16 Basophils (Bld) [#/Vol] 0.07 10*3/uL [place] Basophils/100 WBC (Bld) 1 % 0 - 2 % [place] Differential Type NOT REPORTED [place] Eosinophils (Bld) [#/Vol] 0.06 10*3/uL [place] Eosinophils/100 WBC (Bld) 1 % 1 - 4 % [place] Erythrocyte distribution width (RBC) [Ratio] 14.5 % High 11.8 - 14.4 % [place] Hematocrit (Bld) [Volume fraction] 42.4 % 36.3 - 47.1 % [place] Hemoglobin (Bld) [Mass/Vol] 13.2 g/dL 11.9 - 15.1 g/dL [place] Immature granulocytes (Bld) [#/Vol] 10*3/uL [place] Immature granulocytes (Bld) [#/Vol] 0 % 0 [place] Interpretation and review of laboratory results Abnormal [place] Lymphocytes (Bld) [#/Vol] 1.87 10*3/uL [place] Lymphocytes/100 WBC (Bld) 33 % 24 - 43 % [place] MCH (RBC) [Entitic mass] 26.1 pg 25.2 - 33.5 pg [place] MCHC (RBC) [Mass/Vol] 31.1 g/dL 28.4 - 34.8 g/dL [place] MCV (RBC) [Entitic vol] 84.0 fL 82.6 - 102.9 fL [place] Monocytes (Bld) [#/Vol] 0.45 10*3/uL [place] Monocytes/100 WBC (Bld) 8 % 3 - 12 % [place] Platelet mean volume (Bld) [Entitic vol] 10.1 fL 8.1 - 13.5 fL [place] Platelets (Bld) [#/Vol] 270 10*3/uL [place] Platelets (Bld) [#/Vol] NOT REPORTED [place] RBC (Bld) [#/Vol] 5.05 10*6/uL 3.95 - 5.1 1 m/uL [place] RBC morphology finding Nom (Bld) NOT REPORTED [place] Segmented neutrophils/100 WBC (Bld) 57 % 36 - 65 % [place] Segs Absolute 3.17 [place] WBC (Bld) [#/Vol] 5.6 10*3/uL [place] WBC (Bld) [#/Vol] 0.0 10*3/uL 0.0 per 10 0 WBC [place] WBC Morphology NOT REPORTED [place] CBC with Diffon 10-07-2019 Abs. Basophil 0.07 k/uL Normal 0.00-0.20 [facility] Comment on above: Performed By: #### F TI, FE #### [address] [address] Director [employer]: Otoniel Ash MD #### TSH, LIPR, CP, GLYHGB, CDP #### [address] [place] [id number] Director Of [employer]: Elisabeth Worthy MD Abs.Imm.Granulocyte <0.03 Normal 0.00-0.30 [facility] Comment on above: Performed By: #### F TI, FE #### [address] [address] Director [employer]: Otoniel Ash MD #### TSH, LIPR, CP, GLYHGB, CDP #### [address] [place] [id number] Director Of [employer]: Elisabeth Worthy MD Abs.Neutrophil (Seg) 3.17 k/uL Normal 1.50-8.10 [facility] Comment on above: Performed By: #### F TI, FE #### [address] [address] Director [employer]: Otoniel Ash MD #### TSH, LIPR, CP, GLYHGB, CDP #### [address] [place] [phone] Director [employer]: Elisabeth Worthy MD Basophils/100 WBC (Bld) 1 % Normal 0-2 [facility] Comment on above: Performed By: #### F TI, FE #### [address] [phone] Director [employer]: Otoniel Ash MD #### TSH, LIPR, CP, GLYHGB, CDP #### [address] [place] [phone] Director [employer]: Elisabeth Worthy MD Eosinophils (Bld) [#/Vol] 0.06 10*3/uL Normal 0.00-0.44 [facility] Comment on above: Performed By: #### F TI, FE #### [address] [address] Director [employer]: Otoniel Ash MD #### TSH, LIPR, CP, GLYHGB, CDP #### [address] [place] [phone] Director [employer]: Elisabeth Worthy MD Eosinophils/100 WBC (Bld) 1 % Normal 1-4 [facility] Comment on above: Performed By: #### F TI, FE #### [address] [id number] Director Of [employer] Real Estate: Otoniel Ash MD #### TSH, LIPR, CP, GLYHGB, CDP #### [address] [place] [phone] Director Of [employer] Real Estate: Elisabeth Worthy MD Erythrocyte distribution width (RBC) [Ratio] 14.5 % High 11.8-14.4 [facility] Comment on above: Performed By: #### F TI, FE #### [address] [id number] Director Of [employer] Real [employer]: Otoniel Ash MD #### TSH, LIPR, CP, GLYHGB, CDP #### [address] [place] [address] Director Of [employer] Estate: Elisabeth Worthy MD Hematocrit (Bld) [Volume fraction] 42.4 % Normal 36.3-47.1 [facility] Comment on above: Performed By: #### F TI, FE #### [address] [id number] Director Of [employer]: Otoniel Ash MD #### TSH, LIPR, CP, GLYHGB, CDP #### [facility] [address] [place] [address] Dr. [place] [phone] Director Of [employer]: Elisabeth Worthy MD Hemoglobin (Bld) [Mass/Vol] 13.2 g/dL Normal 11.9-15.1 [facility] Comment on above: Performed By: #### F TI, FE #### [address] [address] Director Of [employer]: Otoniel Ash MD #### TSH, LIPR, CP, GLYHGB, CDP #### [address] [place] [phone] Director Of [employer]: Elisabeth Worthy MD Immature granulocytes (Bld) [#/Vol] 0 % Normal 0 [facility] Comment on above: Performed By: #### F TI, FE #### [address] [address] Director Of [employer]: Otoniel Ash MD #### TSH, LIPR, CP, GLYHGB, CDP #### [address] [place] [phone] Director Of [employer]: Elisabeth Worthy MD Lymphocytes (Bld) [#/Vol] 1.87 10*3/uL Normal 1.10-3.70 [facility] Comment on above: Performed By: #### F TI, FE #### [address] [id number] Director Of [employer]: Otoniel Ash MD #### TSH, LIPR, CP, GLYHGB, CDP #### [address] [place] [phone] Director Of [employer]: Elisabeth Worthy MD Lymphocytes/100 WBC (Bld) 33 % Normal 24-43 [facility] Comment on above: Performed By: #### F TI, FE #### [address] [id number] Director Of [employer]: Otoniel Ash MD #### TSH, LIPR, CP, GLYHGB, CDP #### [address] [place] [phone] Director Of [employer]: Elisabeth Worthy MD MCH (RBC) [Entitic mass] 26.1 pg Normal 25.2-33.5 [facility] Comment on above: Performed By: #### F TI, FE #### [address] [id number] Director Of [employer]: Otoniel Ash MD #### TSH, LIPR, CP, GLYHGB, CDP #### [address] [place] [phone] Director Of [employer]: Elisabeth Worthy MD MCHC (RBC) [Mass/Vol] 31.1 g/dL Normal 28.4-34.8 [facility] Comment on above: Performed By: #### F HUMBERTO, FE #### [address] [id number] Director Of [employer]: Otoniel Ash MD #### TSH, LIPR, CP, GLYHGB, CDP #### [address] [place] [phone] Director Of [employer]: Elisabeth Worthy MD MCV (RBC) [Entitic vol] 84.0 fL Normal 82.6-102.9 [facility] Comment on above: Performed By: #### F TI, FE #### [address] [phone] Director Of [employer]: Otoniel Ash MD #### TSH, LIPR, CP, GLYHGB, CDP #### [address] [place] [phone] Director Of [employer]: Elisabeth Worthy MD Monocytes (Bld) [#/Vol] 0.45 10*3/uL Normal 0.10-1.20 [facility] Comment on above: Performed By: #### F TI, FE #### [address] [address] Director Of [employer]: Otoniel Ash MD #### TSH, LIPR, CP, GLYHGB, CDP #### [address] [place], [place] [id number] Director Of [employer]: Elisabeth Worthy MD Monocytes/100 WBC (Bld) 8 % Normal 3-12 [facility] Comment on above: Performed By: #### F TI, FE #### [address] [id number] Director Of [employer]: Otoniel Ash MD #### TSH, LIPR, CP, GLYHGB, CDP #### [address] [place] [phone] Director Of [employer]: Elisabeth Worthy MD Neutrophil (Seg) 57 % Normal 36-65 [facility] Comment on above: Performed By: #### F TI, FE #### [address] [address] Director Of [employer]: Otoniel Ash MD #### TSH, LIPR, CP, GLYHGB, CDP #### [address] [place], [place] [id number] Director Of [employer]: Elisabeth Worthy MD NRBC Automated 0.0 per 100 WBC Normal 0.0 [facility] Comment on above: Performed By: #### F TI, FE #### [address] [address] Director Of [employer]: Otoniel Ash MD #### TSH, LIPR, CP, GLYHGB, CDP #### [address] [place], [place] [id number] Director Of [employer]: Elisabeth Worthy MD Platelet mean volume (Bld) [Entitic vol] 10.1 fL Normal 8.1-13.5 [facility] Comment on above: Performed By: #### F TI, FE #### [address] [address] Director Of [employer]: Otoniel Ash MD #### TSH, LIPR, CP, GLYHGB, CDP #### [address] [place], [place] [id number] Director Of [employer]: Elisabeth Worthy MD Platelets (Bld) [#/Vol] 270 10*3/uL Normal 138-453 [facility] Comment on above: Performed By: #### F TI, FE #### [address] [address] Director Of [employer]: Otoniel Ash MD #### TSH, LIPR, CP, GLYHGB, CDP #### [address] [place], [place] [id number] Director Of [employer]: Elisabeth Worthy MD RBC (Bld) [#/Vol] 5.05 10*6/uL Normal 3.95-5.11 [facility] Comment on above: Performed By: #### F TI, FE #### [address] [address] Director Of [employer]: Otoniel Ash MD #### TSH, LIPR, CP, GLYHGB, CDP #### [address] [place], [place] [id number] Director Of [employer]: Elisabeth Worthy MD WBC (Bld) [#/Vol] 5.6 10*3/uL Normal 3.5-11.3 [facility] Comment on above: Performed By: #### F TI, FE #### [address] [address] Director Of [employer]: Otoniel Ash MD #### TSH, LIPR, CP, GLYHGB, CDP #### [address] [place] [phone] Director Of [employer]: Elisabeth Worthy MD Auto Diff Performed NOT REPORTED Normal [facility] Comment on above: Performed By: #### F TI, FE #### [address] [address] Director Of [employer]: Otoniel Ash MD #### TSH, LIPR, CP, GLYHGB, CDP #### [address] [place] [phone] Director Of [employer]: Elisabeth Worthy MD Platelets (Bld) [#/Vol] NOT REPORTED Normal [facility] Comment on above: Performed By: #### F TI, FE #### [place] [address] Director Of [employer]: Otoniel Ash MD #### TSH, LIPR, CP, GLYHGB, CDP #### [address] [place] [phone] Director Of [employer]: Elisabeth Worthy MD RBC morphology finding Nom (Bld) NOT REPORTED Normal [facility] Comment on above: Performed By: #### F TI, FE #### [address] [address] Director Of [employer]: Otoniel Ash MD #### TSH, LIPR, CP, GLYHGB, CDP #### [address] [place] [phone] Director Of [employer]: Elisabeth Worthy MD WBC Morphology NOT REPORTED Normal [facility] Comment on above: Performed By: #### F TI, FE #### [address] [address] Director Of [employer]: Otoniel Ash MD #### TSH, LIPR, CP, GLYHGB, CDP #### [address] [place] [address] Director Of [employer]: Elisabeth Worthy MD Comp Metabolic Profon 2019 (cont.) Normal [facility] Comment on above: Result Comment: Aver age GFR for 60-69 years old: 85 mL/min/1.73sq m Chronic Kidney Disease: <60 mL/min/1.73sq m Kidney failure: <15 mL/min/1.73sq m eGFR calculated using average adult body mass. Additional eGFR calculator available at: http://www.[employer]/multiple_crcl_2011.htm Performed By: #### F HUMBERTO FE #### [address] [id number] Director Of [employer]: Otoniel Ash MD #### TSH, LIPR, CP, GLYHGB, CDP #### [address] [place] [address] Director Of [employer]: Elisabeth Worthy MD Albumin [Mass/Vol] 4.5 g/dL Normal 3.5-5.2 [facility] Comment on above: Performed By: #### Jeramie PAUL, FE #### [address] [phone] Director Of [employer]: Otoniel Ash MD #### TSH, LIPR, CP, GLYHGB, CDP #### [address] [place] [address] Director Of [employer]: Elisabeth Worthy MD Albumin/Globulin [Mass ratio] 1.4 {ratio} Normal 1.0-2.5 [facility] Comment on above: Performed By: #### F HUMBERTO, FE #### [address] [phone] Director Of [employer]: Otoniel Ash MD #### TSH, LIPR, CP, GLYHGB, CDP #### [address] [place] [address] Director Of [employer]: Elisabeth Worthy MD Alkaline Phos 94 U/L Normal 35-104 [facility] Comment on above: Performed By: #### F TI, FE #### [address] [id number] Director Of [employer]: Otoniel Ash MD #### TSH, LIPR, CP, GLYHGB, CDP #### [address] [place] [address] Director Of [employer]: Elisabeth Worthy MD ALT [Catalytic activity/Vol] 10 U/L Normal 5-33 [facility] Comment on above: Performed By: #### F TI, FE #### [address] [id number] Director Of [employer]: Otoniel Ash MD #### TSH, LIPR, CP, GLYHGB, CDP #### [address] [place] [phone] Director Of [employer]: Elisabeth Worthy MD Anion gap [Moles/Vol] 12 mmol/L Normal 9-17 [facility] Comment on above: Performed By: #### F TI, FE #### [address] [id number] Director Of [employer]: Otoniel Ash MD #### TSH, LIPR, CP, GLYHGB, CDP #### [address] [place] [address] Director Of [employer]: Elisabeth Worthy MD AST [Catalytic activity/Vol] 40 U/L High <32 [facility] Comment on above: Performed By: #### F TI, FE #### [address] [phone] Director Of [employer]: Otoniel Ash MD #### TSH, LIPR, CP, GLYHGB, CDP #### [address] [place] [address] Director Of [employer]: Elisabeth Worthy MD Bilirubin Ql (U) 0.27 mg/dL Low 0.3-1.2 [facility] Comment on above: Performed By: #### F TI, FE #### [address] [phone] Director Of [employer]: Otoniel Ash MD #### TSH, LIPR, CP, GLYHGB, CDP #### [address] [place] [phone] Director Of [employer]: Elisabeth Worthy MD BUN/CRE Ratio 22 High 9-20 [facility] Comment on above: Performed By: #### F TI, FE #### [address] [phone] Director Of [employer]: Otoniel Ash MD #### TSH, LIPR, CP, GLYHGB, CDP #### [address] [place] [phone] Director Of [employer]: Elisabeth Worthy MD Calcium [Mass/Vol] 10.0 mg/dL Normal 8.6-10.4 [facility] Comment on above: Performed By: #### F TI, FE #### [address] [id number] Director Of [employer]: Otoniel Ash MD #### TSH, LIPR, CP, GLYHGB, CDP #### [address] [place] [phone] Director Of [employer]: Elisabeth Worthy MD Chloride [Moles/Vol] 105 mmol/L Normal 98-107 [facility] Comment on above: Performed By: #### F TI, FE #### [address] [phone] Director Of [employer]: Otoniel Ash MD #### TSH, LIPR, CP, GLYHGB, CDP #### [address] [place] [address] Director Of [employer]: Elisabeth Worthy MD CO2 [Moles/Vol] 21 mmol/L Normal 20-31 [facility] Comment on above: Performed By: #### F TI, FE #### [address] [address] Director Of [employer]: Otoniel Ash MD #### TSH, LIPR, CP, GLYHGB, CDP #### [address] [place], [place] [id number] Director Of [employer]: Elisabeth Worthy MD Creatinine [Mass/Vol] 0.79 mg/dL Normal 0.50-0.90 [facility] Comment on above: Performed By: #### F TI, FE #### [address] [id number] Director Of [employer]: Otoniel Ash MD #### TSH, LIPR, CP, GLYHGB, CDP #### [address] [place], [place] [id number] Director Of [employer]: Elisabeth Worthy MD GFR, Amer >60 Normal >60 [facility] Comment on above: Performed By: #### F TI, FE #### [address] [address] Director Of [employer]: Otoniel Ash MD #### TSH, LIPR, CP, GLYHGB, CDP #### [address] [place], [place] [id number] Director Of [employer]: Elisabeth Worthy MD GFR,non Amer >60 Normal >60 [facility] Comment on above: Performed By: #### F TI, FE #### [address] [address] Director Of [employer]: Otoniel Ash MD #### TSH, LIPR, CP, GLYHGB, CDP #### [address] [place], [place] [id number] Director Of [employer]: Elisabeth Worthy MD Glucose [Mass/Vol] 99 mg/dL Normal 70-99 [facility] Comment on above: Performed By: #### F TI, FE #### [address] [phone] Director Of [employer]: Otoniel Ash MD #### TSH, LIPR, CP, GLYHGB, CDP #### [address] [place] [address] Director Of [employer]: Elisabeth Worthy MD Potassium [Moles/Vol] 4.1 mmol/L Normal 3.7-5.3 [facility] Comment on above: Performed By: #### F TI, FE #### [address] [phone] Director Of [employer]: Otoniel Ash MD #### TSH, LIPR, CP, GLYHGB, CDP #### [address] [place], [place] [phone] Director Of [employer]: Elisabeth Worthy MD Protein [Mass/Vol] 7.7 g/dL Normal 6.4-8.3 [facility] Comment on above: Performed By: #### F TI, FE #### [address] [id number] Director Of [employer]: Otoniel Ash MD #### TSH, LIPR, CP, GLYHGB, CDP #### [address] [place] [address] Director Of [employer]: Elisabeth Worthy MD Sodium [Moles/Vol] 138 mmol/L Normal 135-144 [facility] Comment on above: Performed By: #### F TI, FE #### [address] [phone] Director Of [employer]: Otoniel Ash MD #### TSH, LIPR, CP, GLYHGB, CDP #### [address] [place] [address] Director Of [employer]: Elisabeth Worthy MD Staging: Normal [facility] Comment on above: Result Comment: Stag e 1: Some kidney damage normal GFR Stage 2: Mild kidney damage GFR 60-89 Stage 3: Moderate kidney damage GFR 30-59 Stage 4: Severe kidney damage GFR 15-29 Stage 5: Severe kidney damage GFR <15 ESRD - chronic treatment by dialysis or transplant Performed By: #### F TI, FE #### [place] [address] [place] [address] Director Of [employer]: Otoniel Ash MD #### TSH, LIPR, CP, GLYHGB, CDP #### [facility] [address] [place] [address] [place] [address] Director Of [employer]: Elisabeth Worthy MD Urea nitrogen [Mass/Vol] 17 mg/dL Normal 8-23 [facility] Comment on above: Performed By: #### F TI, FE #### [place] [address] [place] [address] Director Of [employer]: Otoniel Ash MD #### TSH, LIPR, CP, GLYHGB, CDP #### [address] [place] [address] Director Of [employer]: Elisabeth Worthy MD Comprehensive Metabolic Pane [facility] 10-07-2019 Albumin [Mass/Vol] 4.5 g/dL 3.5 - 5.2 g/dL [place] Albumin/Globulin [Mass ratio] 1.4 {ratio} [place] ALP [Catalytic activity/Vol] 94 U/L 35 - 104 U/L [place] ALT [Catalytic activity/Vol] 10 U/L 5 - 33 U/L [place] Anion gap [Moles/Vol] 12 mmol/L 9 - 17 mmol/L [place] AST [Catalytic activity/Vol] 40 U/L High <32 [place] Bilirubin Ql (U) 0.27 mg/dL Low 0.3 - 1.2 mg/dL [place] Bun/Cre Ratio 22 High [place] Calcium [Mass/Vol] 10.0 mg/dL 8.6 - 10. 4 mg/dL [place] Chloride [Moles/Vol] 105 mmol/L 98 - 10 7 mmol/L [place] CO2 [Moles/Vol] 21 mmol/L 20 - 31 mmol/L [place] Creatinine [Mass/Vol] 0.79 mg/dL 0.5 - 0.9 mg/dL [place] GFR >60 >60 mL/min [place], [place] GFR Non- >60 >60 mL/min [place] Glucose [Mass/Vol] 99 mg/dL 70 - 99 mg/dL [place] Potassium [Moles/Vol] 4.1 mmol/L 3.7 - 5.3 mmol/L [place] Protein [Mass/Vol] 7.7 g/dL 6.4 - 8.3 g/dL [place] Sodium [Moles/Vol] 138 mmol/L 135 - 144 mmol/L [place] Urea nitrogen [Mass/Vol] 17 mg/dL 8 - 23 mg/dL [place] Hemoglobin A1Con 10-07-2019 HbA1c (Bld) [Mass fraction] 5.3 % Normal 4.8-5.9 [facility] Comment on above: Performed By: #### F HUMBERTO, FE #### [facility] [address] [facility] [place] [address] Director Of [employer]: Otoniel Ash MD #### TSH, LIPR, CP, GLYHGB, CDP #### [facility] [address] [place] [address] Director Of [employer]: Elisabeth Worthy MD HbA1c (Bld) [Mass fraction] 105 mg/dL Normal [facility] Comment on above: Result Comment: The ADA and AACC recommend providing the estimated average glucose result to permit better patient understanding of their HBA1c result. Performed By: #### F TI, FE #### [place] [address] [place] [address] Director Of [employer]: Otoniel Ash MD #### TSH, LIPR, CP, GLYHGB, CDP #### [facility] [address] [place] [address] Director Of [employer]: Elisabeth Worthy MD Glucose [Mass/Vol] 105 mg/dL [place] Comment on above: The ADA and AACC rec ommend providing the estimated average glucose result to permit better patient understanding of their HBA1c result. HbA1c (Bld) [Mass fraction] 5.3 % 4.8 - 5.9 % [place] Ironon 10-07-2019 Iron [Mass/Vol] 73 ug/dL 37 - 145 ug/dL [place] Lipid Panelon 10-07-2019 Cholesterol [Mass/Vol] 229 mg/dL High <200 [place] Comment on above: Cholesterol Guidelines: <200 Desirable 200-240 Borderline >240 Undesirable Cholesterol in HDL [Mass/Vol] 67 mg/dL >40 [place] Comment on above: HDL Guidelines: <40 Undesirable 40-59 Borderline >59 Desirable Cholesterol in LDL [Mass/Vol] 127 mg/dL 0 - 130 mg/dL [place] Comment on above: LDL Guidelines: <100 Desirable 100-129 Near to/above Desirable 130-159 Borderline >159 Undesirable Direct (measured) LDL and calculated LDL are not interchangeable tests. Cholesterol in VLDL [Mass/Vol] NOT REPORTED High 1 - 30 mg/dL [place] Cholesterol.total/Cho lesterol in HDL [Mass ratio] 3.4 {ratio} <5 [place] Triglyceride [Mass/Vol] 175 mg/dL High <150 [place] Comment on above: Triglyceride Guidelines: <150 Desirable 150-199 Borderline 200-499 High >499 Very high Based on AHA Guidelines for fasting triglyceride, December 2011. Lipid Profileon 10-07-2019 Cholesterol [Mass/Vol] 229 mg/dL High <200 [facility] Comment on above: Result Comment: Cholesterol Guidelines: <200 Desirable 200-240 Borderline >240 Undesirable Performed By: #### F TI, FE #### [facility] [address] [place] [address] Director Of [employer]: Otoniel Ash MD #### TSH, LIPR, CP, GLYHGB, CDP #### [address] [place] [address] Director Of [employer]: Elisabeth Worthy MD Cholesterol in HDL [Mass/Vol] 67 mg/dL Normal >40 [facility] Comment on above: Result Comment: HDL Guidelines: <40 Undesirable 40-59 Borderline >59 Desirable Performed By: #### F TI, FE #### [address] [address] Director Of [employer]: Otoniel Ash MD #### TSH, LIPR, CP, GLYHGB, CDP #### [address] [place] [address] Director Of [employer]: Elisabeth Worthy MD Cholesterol in LDL [Mass/Vol] 127 mg/dL Normal 0-130 [facility] Comment on above: Result Comment: LDL Guidelines: <100 Desirable 100-129 Near to/above Desirable 130-159 Borderline >159 Undesirable Direct (measured) LDL and calculated LDL are not interchangeable tests. Performed By: #### F TI, FE #### [address] [address] Director Of [employer]: Otoniel Ash MD #### TSH, LIPR, CP, GLYHGB, CDP #### [address] [place] [address] Director Of [employer]: Elisabeth Worthy MD Cholesterol.total/Cho lesterol in HDL [Mass ratio] 3.4 {ratio} Normal <5 [facility] Comment on above: Performed By: #### F TI, FE #### [address] [address] Director Of [employer]: Otoniel Ash MD #### TSH, LIPR, CP, GLYHGB, CDP #### [address] [place] [address] Director Of [employer]: Elisabeth Worthy MD Triglyceride [Mass/Vol] 175 mg/dL High <150 [facility] Comment on above: Result Comment: Triglyceride Guidelines: <150 Desirable 150-199 Borderline 200-499 High >499 Very high Based on AHA Guidelines for fasting triglyceride, December 2011. Performed By: #### F TI, FE #### [facility] [address] [place], [place] [id number] Director Of [employer]: Otoniel Ash MD #### TSH, LIPR, CP, GLYHGB, CDP #### [facility] [address] [place] [address] Director Of [employer]: Elisabeth Worthy MD Cholesterol in VLDL [Mass/Vol] NOT REPORTED Normal 04-16 [facility] Comment on above: Performed By: #### F TI, FE #### [facility] [address] [place], [place] [id number] Director Of [employer]: Otoniel Ash MD #### TSH, LIPR, CP, GLYHGB, CDP #### [facility] [address] [place] [address] Director Of [employer]: Elisabeth Worthy MD Metabolic Panelon 10-07-2019 GFR/1.73 sq M predicted among non-blacks MDRD (S/P/Bld) [Vol rate/Area] [place], [place] Comment on above: Stage 1: Some [...] body mass. Additional eGFR calculator available at: http://www.[employer]duct[employer]/multiple_crcl_2012.htm Otheron 10-07-2019 Interpretation and review of laboratory results Abnormal [place] TSH without Reflexon 020 TSH Qn 1.12 m[IU]/L [place] Thyroid Stim. Horm.on 2019 TSH Qn 1.12 m[IU]/L Normal 0.30-5.00 [facility] Comment on above: Performed By: #### F TI, FE #### [facility] [address] [place] [address] Director Of [employer]: Otoniel Ash MD #### TSH, LIPR, CP, GLYHGB, CDP #### [facility] [address] [place] [address] Director Of [employer]: Elisabeth Worthy MD Operative Reporton 8 Operative Report MR#: [id number] [facility] Pt. Name: Xena Ewing Room #: 0C Discharge Date: Birthdate: 1955 OPERATIVE REPORTDATE OF SURGERY: 03/17/2018SURGEON: Bart Holcomb M.D.COPPER PLATE PRINTER: Carlton Galicia M.D.PREOPERATIVE DIAGNOSIS: Right recurrent de [...] Dict: 03/17/2018/10:00 Finn/Chad Andino Trans: 03/17/2018 11:55 A/Marissa_JN:[id number]: Anamika Valle M.D. [facility] [address] [facility] [place] [facility] [id number] Normal [facility] POC GLUCOSE LABon 03-17-2018 Glucose mass conc 89 mg/dL Normal 70-100 [facility] Comment on above: Performed By: #### 8 [id number] ####[facility] Vital Signs Date Time Vital Sign Value Performing Clinician Facility 03-19-2024 15:44-0500 Body height 165.1 cm Semaj Sanchez DPM Work Phone: [facility] 03-19-2024 15:44-0500 Body mass index (BMI) [Ratio] 21.47 kg/m2 Semaj Sanchez DPM Work Phone: [facility] 03-19-2024 15:44-0500 Body weight 58.51 kg Semaj Sanchez DPM Work Phone: [facility] 03-19-2024 15:44-0500 Respiratory rate 18 /min Semaj Sanchez DPM Work Phone: [facility] 02-05-2024 14:03-0500 Blood Pressure Location Rubén NILL [facility] 02-05-2024 14:03-0500 Diastolic blood pressure 84 mm[Hg] Rubén NILL [facility] 02-05-2024 14:03-0500 Heart rate 72 /min Rubén NILL [facility] 02-05-2024 14:03-0500 Respiratory rate 16 /min Rubén NILL [facility] 02-05-2024 14:03-0500 Systolic blood pressure 132 mm[Hg] Rubén NILL [facility] 10-23-2022 11:13-0400 Body height 165.1 cm Claire Morales MD Work Phone: [facility] 10-23-2022 11:13-0400 Body weight 73.07 kg Claire Morales MD Work Phone: [facility] 10-23-2022 11:13-0400 Diastolic blood pressure 71 mm[Hg] Claire Morales MD Work Phone: [facility] 10-23-2022 11:130 Heart rate 77 /min Claire Morales MD Work Phone: [facility] 10-23-2022 11:130400 Systolic blood pressure 125 mm[Hg] Claire Morales MD Work Phone: [facility] Encounters Encounter Date Encounter Type Care Provider Facility Start: 03-19-2024 End: 03-19-2024 Office outpatient visit 15 minutes Semaj Sanchez DPM Work Phone: [facility] Comment on above: Neoplasm of uncertai n behavior of skin (Primary Dx); Verruca plantaris; Foot pain, right; Foot pain, left; Pain due to onychomycosis of toenails of both feet Start: 03-19-2024 End: 03-19-2024 ambulatory SEMAJ SANCHEZ Not Available Start: 03-19-2024 End: 03-19-2024 Bamboo flowsheet Semaj Sanchez DPM Work Phone: [facility] Start: 03-19-2024 End: 03-19-2024 Bamboo flowsheet Semaj Sanchez DPM Work Phone: [facility] Start: 02-06-2024 End: 02-06-2024 ambulatory GEORGES BURNS Facility:[facility] Start: 02-06-2024 End: 02-06-[address] GEORGES BURNS [facility] Start: 02-05-2024 End: 02-05-2024 ambulatory Rubén MANUEL Facility:[facility] Start: 02-05-2024 End: 02-05-2024 Patient encounter procedure Rubén MANUEL [facility] Start: 12-27-2023 End: 12-27-2023 Patient encounter procedure MD Anamika Valle Work Phone: [facility] Work Phone: Start: 12-27-2023 End: 12-27-2023 ambulatory MD Anamika Valle Work Phone: [facility] Work Phone: Start: 12-17-2023 End: 12-17-2023 Bamboo flowsheet Shirin Durbiner TABLE HAND-CONTROLS DESIGNER Work Phone: [facility] Start: 12-17-2023 End: 12-17-2023 Bamboo flowsheet Shirin Briseno Felter TABLE HAND-CONTROLS DESIGNER Work Phone: [facility] Start: 12-17-2023 End: 12-17-2023 Office outpatient new 20 minutes Shirin Durbiner TABLE HAND-CONTROLS DESIGNER Work Phone: [facility] Comment on [...] 12-24-2022 ambulatory MD Anamika Valle Work Phone: [facility] Work Phone: Start: 12-24-2022 End: 12-24-2022 Patient encounter procedure MD Anamika Valle Work Phone: [facility] Work Phone: Start: 10-23-2022 End: 10-24-2022 ambulatory ANAMIKA VALLE Facility:[facility] Start: 10-23-2022 End: 10-23-2022 Patient encounter procedure Claire Morales MD Work Phone: General Surgery Comment on above: Ventral hernia witho ut obstruction or gangrene (Primary Dx) Start: 04-19-2022 End: 04-19-2022 ambulatory DESTINI DOOLEY Facility:[facility] Start: 01-05-2022 End: 01-06-[address] ANAMIKA VALLE Facility:[facility] Start: 12-21-2021 End: 12-21-2021 ambulatory MD Anamika Valle Work Phone: [facility] Work Phone: Start: 12-21-2021 End: 12-21-2021 Patient encounter procedure MD Anamika Valle Work Phone: [facility] Start: 11-09-2021 End: 11-10-[address] ANAMIKA VALLE Facility:[facility] Start: 08-31-2021 End: 08-31-[address] ANAMIKA VALLE Facility:[facility] Start: 06-29-2021 End: 06-29-[address] ANAMIKA VALLE Facility:[facility] Start: 06-21-2021 End: 06-22-[address] ANAMIKA VALLE Facility:[facility] Start: 06-08-2021 End: 06-09-[address] ANAMIKA VALLE Facility:[facility] Start: 10-13-2019 End: 10-14-2019 Patient encounter procedure [facility] Start: 10-13-2019 End: 10-13-2019 Subsequent hospital visit by physician Anamika Valle [facility] Start: 10-07-2019 End: 10-08-2019 Patient encounter procedure [facility] Start: 10-07-2019 End: 10-07-2019 Subsequent hospital visit by physician [facility] Drawing Room [facility] Comment on above: Arrived Start: 03-17-2018 End: 03-18-2018 Patient encounter procedure GIOVANI HOLCOMB Facility:[facility] Start: 02-14-2018 End: 02-15-2018 Patient encounter procedure DEFAULT PHYSICIAN Facility:[facility] Procedures Date Procedure Procedure Detail Performing Clinician Start: 12-27-2023 Screening mammograph y of bilateral breasts MD Anamika Valle Work Phone: Start: 12-17-2023 CRYOTHERAPY SKIN LESION Shirin Escobar TABLE HAND-CONTROLS DESIGNER Work Phone: Start: 12-24-2022 Screening mammograph y of bilateral breasts MD Anamika Valle Work Phone: Start: 04-19-2022 Mammography Shirin alvarez TABLE HANDFraxion Work Phone: Start: 12-21-2021 Screening mammograph y [...] horm uptk/th yroid hormone binding ratio ANAMIKA HOBabar Start: 10-07-2019 Assay of iron Anamika M [...] OF TENDON SHEATH ABDULAZIM JI Appendectomy Rubén ACEVEDOL Colonoscopy Rubén NILL Decompression of med vernon nerve Rubén NILL Re-release of carpal tunnel Rubén NILL Total abdominal hysterectomy with bilateral salpingo-oophorectomy Rubén ACEVEDOL Plan of Treatment Date Care Activity Detail Author Start: 06-01-2028 DTaP/Tdap/Td vaccine (2 - Td) DTaP/Tdap/Td vaccine (2 - Td) [place], [place] Start: 10-06-2024 Lipid panel Lipid screen [place], [place] Start: 06-01-2024 End: 06-01-2024 Patient encounter procedure 06/01/2024 11:00 AM EDT Office Visit [facility] [address] [place] [address] Severo Curry DO [address] [place] [address] [facility] Start: 03-19-2024 End: 03-19-2024 Patient encounter procedure 03/19/2024 3:50 PM EST Office Visit [facility] [address] [place] [phone] Semaj Sanchez, DPM [address] [facility] [address] [place] [address] [facility] Start: 12-17-2023 End: 12-17-2023 Patient encounter procedure 12/17/2023 11:05 AM EDT Office Visit [facility] [address] [place] [address] Shirin Escobar, TABLE HAND-CONTROLS DESIGNER [address] [place] [address] Arrived [facility] Comment on above: Arrived Start: 11-17-2023 Influenza vaccination Influenza Vacc ine (#1) [facility] Start: 04-19-2023 Screening for malign ant neoplasm of breast Mammogram [facility] Start: 11-16-2022 Influenza vaccination INFLUENZA (#1) [facility] Start: 04-21-2022 COVID-19 VACCINE (5 - Pfizer series) COVID-19 VACCINE (5 - Pfizer series) [facility] Start: 03-18-2022 ADVANCE DIRECTIVE DISCUSSION ADVANCE DIRECTIVE DISCUSSION [facility] Start: 03-18-2022 DEPRESSION ASSESSMENT DEPRESSION ASS ESSMENT [facility] Start: 2021 BONE DENSITY BONE DENSITY [facility] Start: 2021 Pneumococcal Vaccine : 65+ Years (2 of 2 - PCV) Pneumococcal Vaccine: 65+ Years (2 of 2 - PCV) [facility] Start: 11-17-2019 Influenza vaccination Flu vaccine (# 1) [place], [place] Start: 2006 Influenza vaccination LUNG CANCER SC REENING [facility] Start: 2006 Screening for malign ant neoplasm of breast Breast cancer screen [place], [place] Start: 2006 Screening for malign ant neoplasm of colon Colon cancer screen colonoscopy [place] Start: 2006 Shingles Vaccine (1 of 2) Shingles Vaccine (1 of 2) [place] Start: 2006 SHINGRIX VACCINE (1 of 2) SHINGRIX VACCINE (1 of 2) [facility] Start: 2001 COLOGUARD (FIT-DNA) COLOGUARD (FIT-D NA) [facility] Start: 2001 Colonoscopy COLONOSCOPY [facility] Start: 2001 COLORECTAL CANCER SCREENING COLORECTAL CANCER SCREENING [facility] Start: [address] COLONOGRAPHY [facility] Start: 2001 DIABETES SCREEN DIABETES SCREEN [facility] Start: 2001 FECAL OCCULT BLOOD FECAL OCCULT BLOO D [facility] Start: 2001 LIPID SCREEN LIPID SCREEN [facility] Start: 2001 SIGMOIDOSCOPY SIGMOIDOSCOPY [facility] Start: 1996 Lipid panel Lipid screen [place], [place] Start: 1996 Mammography MAMMOGRAM [facility] Start: 1977 Screening for malign ant neoplasm of cervix Cervical cancer screen [place], [place] Start: 12-12-1975 Urine microalbumin profile DTAP,TDAP,TD (1 - Tdap) [facility] Start: 1974 HEPATITIS C SCREENING HEPATITIS C [facility] Start: 1974 HIV SCREENING HIV SCREENING [facility] Start: 12-12-1971 [facility] [place] [place] Start: 1962 PNEUMOCOCCAL: 65+ (1 - PCV) PNEUMOCOCCAL: 65+ (1 - PCV) [facility] Start: 1956 Hepatitis C screening Hepatitis C ok katherine [place], [place] Start: 1956 Screening for malign ant neoplasm of colon [facility] Immunizations Immunization Date Immunization Notes Care Provider Angie sandoval 12-19-2021 SARS-CoV-2 (COVID-19 ) [id number] Rubén MANUEL [facility] 04-04-2021 SARS-CoV-2 (COVID-19 ) mRNA BNT-162b2 vax Rubén ACEVEDOL [facility] 12-16-2020 SARS-CoV-2 (COVID-19 ) mRNA BNT-162b2 vax Rubén ACEVEDOL [facility] 11-28-2020 SARS-CoV-2 (COVID-19 ) mRNA BNT-162b2 vax Rubén ACEVEDOL [facility] 06-05-2018 influenza virus vaccine, unspecified formulation Shirin Escobar APRN-CONTROLS DESIGNER Work Phone: [facility] 06-01-2018 tetanus toxoid, redu tu diphtheria toxoid, and acellular pertussis vaccine, adsorbed Mth Room [place], [place] Payers Date Payer Category Payer Self-pay [id number] 2023 Medicare (Managed Care) JAVIER DAY [id number] 2023 Medicare [id number] 2022 Medicare [id number] 2019 Unknown [id number] 2019 Unknown [employer] M [employer] CHUCK - EXCHANGE [id number] 2019-Present [phone] [address] [place] [address] [id number] 1959 Medicare [id number] 1959 Medicare [id number] 1959 Private Health Insurance 101 [id number] 1956 Unknown [id number] 2.16.840.1.875408.3.579.2. 647 1956 Unknown [id number] 2.16.840.1.510339.3.579.2. 647 1956 Unknown [id number] 2.16.840.1.994469.3.579.2. 173 1956 Unknown [id number] 2.16.840.1.120421.3.579.2. 173 1956 Unknown [id number] 2.16.840.1.898617.3.579.2. 593 1956 Unknown [id number] 2.16.840.1.194763.3.579.2. 593 1956 Unknown [id number] 2.16.840.1.930296.3.579.2. 593 1956 Unknown [id number] 2.16.840.1.381488.3.579.2. 593 1956 Unknown [id number] 2.16.840.1.717987.3.579.2. 593 1956 Unknown [id number] 2.16.840.1.535567.3.579.2. 593 1956 Unknown [id number] 2.16.840.1.010183.3.579.2. 593 1956 Unknown [id number] 2.16.840.1.040190.3.579.2. 727 1956 Unknown [id number] 2.16.840.1.035615.3.579.2. 727 1956 Unknown [id number] 2.16.840.1.420120.3.579.2. 1259 1956 Unknown [id number] 2.16.840.1.997712.3.579.2. 1259 1956 Unknown [id number] 2.16.840.1.205996.3.579.2. 1259 1956 Unknown [id number] 2.16.840.1.386545.3.579.2. 1259 1956 Unknown [id number] 2.16.840.1.240308.3.579.2. 1259 1956 Unknown [id number] 2.16.840.1.792173.3.579.2. 1259 1956 Unknown [id number] 2.16.840.1.309663.3.579.2. 1259 Medicare Medicare [id number] Unknown [id number] Unknown Unknown HCAP/HFA/FAP Active [id number] Unknown [id number] 2.16.840.1.893735.3.579.2. 531 Social History Date Type Detail Facility Start: 05-31-2018 End: 02-05-2024 Tobacco smoking status NHIS Former smoker [facility] Start: 05-31-2018 Alcohol intake Ex-drinker (finding) [place], [place] Start: 1955 Sex Assigned At Not on file [place] Exposure to SARS-CoV -2 (event) Not sure [place], [place] Start: 1955 Sex Assigned At Female F [facility] Start: 10-23-2022 Tobacco smoking stat us NHIS Smokes tobacco daily [facility] History of tobacco use Cigarette Smoker [facility] Start: 10-23-2022 End: 12-17-2023 Cigarettes smoked current (pack per day) - Reported 1 [facility] Start: 10-23-2022 End: 03-19-2024 Tobacco use and exposure User of smokeless tobacco [facility] Start: 10-23-2022 End: 03-19-2024 Alcohol intake Lifetime non-drinker (finding) [facility] Start: 10-23-2022 End: 12-17-2023 Tobacco use panel [facility] Start: 10-23-2022 Tobacco Comment Vape [facility] Start: 09-21-2022 End: 03-19-2024 Tobacco smoking status NHIS Never smoked tobacco [facility] Start: 04-27-2023 Alcohol Comment Caffine intake : 2-3 cups per day, coffee; tea [facility] Functional Status Date Assessment Result Facility 02-05-2024 Functional Status N/A [facility] Clinical Notes 08-31-2021 to 03-19-2024 Semaj Sanchez, COREY - 03/19/2024 3:50 PM Mily Escobar, TYLER-ARTURO - 12/17/2023 11:05 AM LEAHTFClaire carrera MD - 10/23/2022 11:34 AM EDT Note Date & Type Note Facility 03-19-2024 History of Present illness Narrative Patient: Xena Ewing : 1955 PCP: Anamika Valle MD SUBJECTIVE This is a 68 y.o. female that presents today with a CC of elongated, thick nails. Pt states nails have been elongated and thick for many years and cause pain with ambulation in shoegear. Pt has tried previous treatment with minimal relief. Pt presents today for nail care and treatment. And also has longstanding history of painful lesions to left and right foot and states she has tried to trim lesions with minimal improvement states it is sharp and painful with ambulation up to an 8/10 at times Allergies: Allergies Allergen Reactions Codeine Nausea Only Other Reaction(s): GI Disturbance Etodolac Other Reaction(s): itching Other Sulfa Antibiotics Hives Other Reaction(s): Unknown Past Medical History: Past Medical History: Diagnosis Date Appendicitis, acute 2021 Cramps of lower extremity at hs Osteopenia Tendonitis jeanne hands Medications: Current Outpatient Medications: amitriptyline (Elavil) 50 MG tablet, , Disp: , Rfl: cyclobenzaprine (Flexeril) 10 MG tablet, Take 10 mg by mouth in the morning and 10 mg in the evening and 10 mg before bedtime., Disp: , Rfl: doxepin (SINEquan) 10 MG capsule, TAKE 1 TO 2 CAPSULES BY MOUTH AT BEDTIME NEEDED FOR ANXIETY, Disp: , Rfl: famotidine (Pepcid) 40 MG tablet, TAKE 1 TABLET BY MOUTH TWICE DAILY with one dose being AT BEDTIME, Disp: , Rfl: meloxicam (Mobic) 7.5 MG tablet, 1 (one) time each day at the same time, Disp: , Rfl: pantoprazole (ProtoNix) 40 MG EC tablet, Take 40 mg by mouth in the morning., Disp: , Rfl: sucralfate (Carafate) 1 g tablet, TAKE 1 TABLET BY MOUTH FOUR TIMES DAILY (BEFORE MEALS & AT BEDTIME ON AN EMPTY STOMACH), Disp: , Rfl: tiZANidine (Zanaflex) 4 MG tablet, 2 tablets Orally at bedtime for 90 days, Disp: , Rfl: Social History: Social History Socioeconomic History Marital status: Spouse name: Not on file Number of children: Not on file Years of education: Not on file Highest education level: Not on file Occupational History Not on file Tobacco Use Smoking status: Never Smokeless tobacco: Current Substance and Sexual Activity Alcohol use: Never Comment: Caffine intake: 2-3 cups per day, coffee; tea Drug use: Not on file Sexual activity: Not on file Other Topics Concern Not on file Social History Narrative Not on file Social Drivers of Health Financial Resource Strain: Not on file Food Insecurity: Not on file Transportation Needs: Not on file Physical Activity: Not on file Stress: Not on file Social Connections: Not on file Intimate Partner Violence: Not on file Housing Stability: Not on file ROS: General: denies fever, chills, fatigue, malaise Gastrointestinal: denies abdominal pain, ulcers, or changes in appetite or bowel habits Musculoskeletal: denies arthritis, denies loss of strength, pain to hip, knees, back Cardiovascular: denies CP, palpitations, irregular rhythms OBJECTIVE LE EXAM: DERM: Elongated thick yellow crumbly nails digits 1 through 10. diminished hair growth b/l feet. Nummular lesion measuring at the left and right sub 3rd metatarsal region of 0.2 cm x 0.2 cm in the right sub 5th metatarsal region of 0.2 cm x 0.2 cm measuring VASC: Positive palpable pedal pulses bilaterally NEURO: Gross sensation intact to bilateral feet ORTHO: Positive pain on palpation to nails 1 through 10 Positive pain on palpation to bilateral foot lesions ASSESSMENT 1. Neoplasm of uncertain behavior of skin 2. Verruca plantaris 3. Foot pain, right 4. Foot pain, left 5. Pain due to onychomycosis of toenails of both feet PLAN Discussed proper foot care with patient today. Debride nails in length and thickness digits 1 through 10 Discussed condition in detail with patient today and discussed conservative treatments and possible excisional biopsy of lesion in the future for pathological diagnosis of specimen. Patient may take [id number]-ewhchhh NSAID p.r.n. for pain Application of salinocaine acid medication to lesion/lesions located at right foot Informed pt of risks and benefits of procedure including high reoccurence rate, infection, pain and consent given. Application of DSD post procedure. Application of salinocaine acid medication to lesion/lesions located at left foot Informed pt of risks and benefits of procedure including high reoccurence rate, infection, pain and consent given. Application of DSD post procedure. Semaj Sanchez DPM documented in this encounter [facility] 02-06-2024 Evaluation + Plan note Diagnostic Tests Pendingvon Willebrand Factor (vWF) Ag 02/06/24Lupus Anticoagulant 02/06/24vWF Activity 02/06/24 [facility] 02-05-2024 Note General Surgery Offi ce/Clinic [...] Father. Immunizations Vaccine Date Status SARS-CoV-2 (COVID-19) [id number].[id number] 12/19/2021 Recorded SARS-CoV-2 ( (more content not included)... [facility] Comment on above: Result Comment: Elec [...] limited to risks of scarring, darker or heel emery buffer pigmentary changes, recurrence, incomplete removal and infection. [...] any new/changing lesions documented in this encounter [facility] 10-23-2022 Note HNO ID: [id number] Author: Claire Morales MD Service: ? Author [...] Surgery cc: Referring provider Anamika Valle [address] [facility] [address] Medical Decision Making: Problems: Low: Stable chronic illness Data: Independent interpretation of test from other physician/QHCP Medical Decision Making Level: 3 - Low [facility] 10-23-2022 History of Present illness Narrative GENERAL [...] cc: Referring provider Anamika Valle [address] [facility] [address] Medical Decision Making: Problems: Low: Stable chronic illness Data: Independent interpretation of test from other physician/QHCP Medical Decision Making Level: 3 - Low documented in this encounter [facility] 08-31-2021 Note OPERATIVE NOTE OPERATION DATE: 08/31/2021 PREOPERATIVE DIAGNOSIS: Acute appendicitis. POSTOPERATIVE DIAGNOSIS: Acute appendicitis. PROCEDURE PERFORMED: Laparoscopic appendectomy. SURGEON: Elisabeth Rehman M.D. COPPER PLATE PRINTER: PINA Corona ANESTHESIA: General, 0.5% Marcaine for [...] to the PACU in fair condition. [facility] Signed and Approved by: DR ELISABETH REHMAN . 09/15/2021 06:33:00 [facility] Evaluation + Plan note No data available for this section [facility] Evaluation note No assessment inform ation available [facility] Work Phone: Evaluation note Diagnosis Ventral hernia without obstruction or gangrene- Primary Ventral hernia, unspecified, without mention of obstruction or gangrene [facility] Diagnosis Other nonthrombocytopenic purpura (CMS/HCC)- Primary Actinic keratosis documented in this encounter [facility] Healthcare[facility] note* Diagnosis Neoplasm of uncertain behavior of skin- Primary Verruca plantaris Plantar wart Foot pain, right Pain in soft tissues of limb Foot pain, left Pain in soft tissues of limb Pain due to onychomycosis of toenails of both feet documented in this encounter [facility] Discharge instructions No data available for this section [facility] Progress note No data available for this section [facility] Summary Purpose Family History No Family History [...] FoundDocuments on File Type Date 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 Advance Directives and Living Will 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 Advance Directive Response Recorded Date/ Time Advance Directives No June 06, 2 018 3:52pm Chief Complaint and Reason for Visit Chief Complaint Screening Additional Source Comments INFORMATION SOURCE (unrecogn ized section and content) DATE CREATED AUTHOR 03/21/2018 [facility] DATE CREATED AUTHOR AUTHOR'S ORGANIZ ATION 10/14/2019 [facility] DATE CREATED AUTHOR AUTHOR'S ORGANIZ ATION 04/27/2022 [facility] DATE CREATED AUTHOR AUTHOR'S ORGANIZ ATION 10/27/2022 [facility] DATE CREATED AUTHOR AUTHOR'S ORGANIZ ATION 01/03/2024 [facility] DATE CREATED AUTHOR AUTHOR'S ORGANIZ ATION 02/08/2024 [facility] DATE CREATED AUTHOR AUTHOR'S ORGANIZ ATION 02/13/2024 [facility] DATE CREATED AUTHOR AUTHOR'S ORGANIZ ATION 03/27/2024 [facility] EPIC DATE CREATED AUTHOR AUTHOR'S ORGANIZ ATION 03/29/2024 [facility] Care Teams (unrecognized sec tion and content) Team Status: Active Member Role Status Dates Anamika Valle MD Primary Care Provider Active Team Status: Inactive Member Role Status Dates Anamika Valle MD Primary Care Provider Active Referral Self Attending Provider Active Research And Development Specialist Relationship Specialty Start Date End Date Anamika Valle MD PCP - General 10/24/04 Anamika Valle MD [address] [place] [facility] [address] Referring Family Medicine 10/05/22 Research And Development Specialist Relationship Specialty Start Date End Date Anamika Valle MD [address] [place] [address] PCP - General Family Medicine 09/21/22 Research And Development Specialist Relationship Specialty Start Date End Date Anamika Valle MD [address] [place] [facility] [address] PCP - General Family Medicine 09/21/22 Team Status: Inactive Member Role Status Dates Anamika Valle MD Primary Care Provide r, Referring Provider Active Start: December 27, 2023 End: December 27, 2023 Referral Self Attending Provider Active Start: O ctober 2023 End: December 27, 2023 Research And Development Specialist Relationship Specialty Start Date End Date Anamika Valle MD [address] [place] [facility] [address] PCP - General Family Medicine 09/21/22 Goals (unrecognized section and content) Goals may [...] or prosecute any alcohol or drug abuse patient.[facility] Reason for Visit (unrecogniz ed section and content) Reason Comments New Patient Reason Comments Suspicious Skin Lesion Reason Comments Foot Callouses Bl callous FOR RECORDS PERTAINING TO PATIENTS WHO ARE [...] BE BASED ON THE PRIMARY CLINICAL RECORDS. [employer] [facility]. provides no warranty or guarantee of the accuracy or completeness of information in this document.
== END 2024-04-01 10:11 | disposition home or self-care (01) ==
LOC: CT 10:10
PROVIDERS: PCP Family Medicine; Visit Provider Internal Medicine Hematology & Oncology
DX: R23.3 Spontaneous ecchymoses (principal); J43.8 Other emphysema; Z87.891 Personal history of nicotine dependence
CPT/HCPCS: 71271

== ENCOUNTER 2024-04-13 10:12 | Outpatient (OUT) | payer MEDICARE, SELFPAY | END 2024-04-13 10:13 | disposition home or self-care (01) | LOC: PST 10:13 | PROVIDERS: PCP Family Medicine; Visit Provider Surgery | DX: Z01.818 Encounter for other preprocedural examination (principal); R19.5 Other fecal abnormalities ==

== ENCOUNTER 2024-04-15 06:16 | Day surgery (SDC) | payer MEDICARE, SELFPAY ==
--- NOTE | 2024-04-15 | OP_ITS ---
OPERATION DATE: 04/15/2024 PREOPERATIVE DIAGNOSIS: Positive fecal occult blood test. POSTOPERATIVE DIAGNOSIS: Mild sigmoid diverticulosis. PROCEDURE: Colonoscopy to cecum. SURGEON: Rubén Champion M.D. ANESTHESIA: Monitored anesthesia care. ESTIMATED BLOOD LOSS: Zero. INDICATIONS AND CONSENT: Patient is a 68-year-old female presents for evaluation of positive fecal occult blood test. Indications, risks, benefits, alternatives of proceeding with colonoscopy were explained extensively to the patient, including the risks of bleeding, colon perforation or anesthetic complications. All of her questions were answered. Informed consent was obtained. PROCEDURE: Patient brought to the operating room, placed in the left lateral decubitus position. Monitored anesthesia care was provided. Rectal exam was performed which showed no masses or blood. The scope was inserted into the anal canal. Under direct visualization was advanced. With the aid of abdominal compression, it was advanced to the cecum where cecal markings were clearly identified. There was noted to be a good prep. Upon withdrawal of the scope, mucosal surfaces were carefully examined. There were no mass lesions or polyps. No inflammatory changes or ulcerations. Within the sigmoid colon, there was mild sigmoid diverticulosis without inflammatory changes or scarring. The scope was retroflexed in the anal canal. There were some prominent rectal veins. No significant hemorrhoidal disease. No old or new blood. The scope was then withdrawn. Patient tolerated procedure well, was sent to recovery room in good condition. Follow up screening colonoscopy should be in 10 years. CC: Kenan Valle M.D. [facility]
--- OUTSIDE RECORDS SUMMARY | 2024-04-15 06:19 | XMS_ITS | CCD ---
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 Name Role Phone PHYSICIAN, DEFAULT Unavailable Unavailable PHYSICIAN, DEFAULT Unavailable Unavailable JANINE VALLELAS Unavailable Unavailable JI, ABDULAZIM Unavailable Unavailable JI, ABDULAZIM Unavailable Unavailable JANINE VALLELAS Unavailable Unavailable ANAMIKA VALLE Unavailable Unavailable GA Unavailable Unavailable JI, ABDULAZIM Unavailable Unavailable GA Unavailable Unavailable BOUCHRA HARPER Unavailable Unavailable ANAMIKA VALLE Referring Unavailable ANAMIKA VALLE Primary Care Unavailable ANAMIKA VALLE Referring Unavailable ANAMIKA VALLE Primary Care Unavailable Anamika Valle Primary Care Provider MD Anamika Valle Primary Care Provider [phone] Self, Referral Attending Provider Unavailable DR ANAMIKA VALLE Admitting Unavailable MAKAYLA, DR WILLSON Attending Unavailable MAKAYLA, DR WILLSON Primary Care Unavailable MAKAYLA, DR WILLSON Consulting Unavailable DR Danna Castle Consulting Unavailable DR ANAMIKA VALLE Primary Care Unavailable WIDR ELISABETH BARNETT Admitting Unavailable WIECEKatelin, DR ELISABETH Irwin Attending Unavailable WIERICKA, DR ELISABETH Irwin Consulting Unavailable Corrine, DR [...] Valle MD Primary Care Provider [phone] MD Anamika Valle Primary Care Provider MD Anamika Valle Referring Provider Self, Referral Attending Provider Unavailable Anamika Valle Referring Unavailable Anamika Valle Primary Care Unavailable Self, Referral Attending Unavailable Self, Referral Admitting Unavailable Anamika Valle Primary Care Physician GRANT, GEORGES Attending Unavailable GRANT, GEORGES Admitting Unavailable Rubén MANUEL Attending Unavailable Anamika Valle Referring Unavailable GRANT, GEORGES Attending Unavailable GRANT, GEORGES Admitting Unavailable SEMAJ SANCHEZ Attending Unavailable MONIE NAVARRO Attending Unavailable SEVERO CURRY Attending Unavailable MONIE NAVARRO Attending Unavailable MONIE NAVARRO Attending Unavailable SHIRIN ESCOBAR Attending Unavailable SEMAJ SANCHEZ Attending Unavailable Allergies Allergy Classification Reported Allergen(s) Allergy Type Date of Onset Reaction(s) Facility (18 sources) Codeine; Translations: [CODEINE] Drug Allergy 11-30-19 05 Nausea Only, Gastrointestinal irritation (disorder) [facility] Repository (1 source) Etodolac Drug Allergy 03-21-19 17 [facility] Repository (1 source) no latex allergy [Other] Propensity to adverse reactions 11-30-19 05 [facility] (10 sources) OTHER; Translations: [OTHER] Propensity to adverse reactions (disorder) 11-30-19 05 [facility] Repository (9 sources) Etodolac Allergy to substance 09-22-19 23 [facility] (9 sources) Sulfonamides (Antibiotic) Drug Allergy 07-14-19 22 Hives [facility] (1 source) Unable to Assess Drug allergy (disorder) 10-07-19 19 [facility] Repository (3 sources) Ciprofloxacin; Translations: [ciprofloxacin] Drug Allergy Patient reported problems (finding) [facility] [place] Medications Current Medications Medication Drug Class(es) Dates Sig (Normalized) Sig (Original) amitriptyline hydrochloride 50 mg oral tablet (12 sources) Tricyclic Antidepressant Start: 09-20-2022 amitriptyline (Elavil) [...] Active cyclobenzaprine hydrochloride 10 mg oral tablet (10 sources) Muscle Relaxant Start: 09-14-2022 take 1 [...] daily. doxepin hydrochloride 10 mg oral capsule (12 sources) Tricyclic Antidepressant Start: 08-21-2022 take 1 capsule by mouth at bedtime as needed doxepin (SINEquan) 10 MG capsule TAKE 1 TO 2 CAPSULES BY MOUTH AT BEDTIME NEEDED FOR ANXIETY 08/21/2022 Active Comment on above: TAKE 1 TO 2 CAPSULES BY MOUTH AT BEDTIME NEEDED FOR ANXIETY famotidine 40 mg oral tablet (12 sources) Histamine-2 Receptor Antagonist Start: 09-14-2022 take [...] Status: Ordered meloxicam 7.5 mg oral tablet (10 sources) Nonsteroidal Anti-inflammatory Drug Start: 10-17-2022 meloxicam [...] pantoprazole 40 mg delayed release oral tablet (12 sources) Proton Pump Inhibitor Start: 07-15-2022 take 1 tablet by mouth in the morning pantoprazole (ProtoNix) 40 MG EC tablet Take 40 mg by mouth in the morning. 07/15/2022 Active Comment on above: Take 1 tablet by diego th every afternoon. sucralfate 1000 mg oral tablet (10 sources) Aluminum Complex Start: 09-14-2022 take 1 [...] EMPTY STOMACH) tiZANidine 4 mg oral tablet (11 sources) Central alpha-2 Adrenergic Agonist Start: 01-21-2023 [...] diego th every 12 hours. estrogens, conjugated (fci) 0.625 mg oral tablet (1 source) Estrogen [...] Onset: 8 Episodic Other connective tissue disease (13 sources) Pain in left foot; Translations: [Pain in left foot] Onset: 3 09-21-2022 Episodic Other connective tissue disease (4 sources) Pain in right foot; Translations: [Pain [...] of lower extremity 01-27-2024 Episodic Viral infection (4 sources) Verruca plantaris; Translations: [Plantar wart] 03-19-2024 [...] 03-23 Lab Miscellaneous COMMENT Invalid Interpretation Code [facility] Comment on above: Result Comment: Test Ordered: [id number] von Willebrand Genes Result Comment MNEGA PDF report to be sent separately This test was developed and its performance characteristics determined by [facility]. It has not been cleared or approved by the Food and Drug Administration. Performed at: [address] [id number] PhD Alfred Hwang Performed By: #### 1 [id number] #### [facility] Laboratory [address] [place] [address] Lupus Anticoagon 02-10-2024 aPTT.lupus sensitive Coag (PPP) [Time] 29.4 second(s) Invalid Interpretation Code 0.0-43.5 [facility] Comment on above: Performed By: #### 2 [id number] #### [facility] [address] [place] [address] dRVVT Coag (PPP) [Time] 32.8 second(s) Invalid Interpretation Code 0.0-47.0 [facility] Comment on above: Performed By: #### 2 [id number] #### [facility] [address] [place] [address] Lupus anticoagulant two screening tests W Reflex Coag (PPP) [Interp] Comment: Invalid Interpretation Code [facility] Comment on above: Result Comment: No l upus anticoagulant was detected. Performed at: [address] [id number] MD Andrew Wilburn Performed By: #### 2 [id number] #### [facility] [address] [place] [address] vWF Activityon 02-10-2024 vWf ristocetin cofactor act actual/normal Platelet aggregation (PPP) [Relative time] 346 % High 50-200 [facility] Comment on above: Result Comment: Perf ormed at: [address] [id number] MD Andrew Wilburn Performed By: #### 2 [id number] #### [facility] [address] [place] [address] von Willebrand Factor (vWF) Agon 02-10-2024 vWf Ag actual/normal [place] (PPP) [Relative mass conc] 368 % High 50-200 [facility] Comment on above: Result Comment: VWF may [...] developed and its performance characteristics determined by [employer] It has not been cleared or approved by the Food and Drug Administration. Performed at: [address] [id number] MD Andrew Wilburn Performed By: #### 2 [id number] #### [facility] Laboratory [address] [place] [id number] COAGULATIONOrdered By: Jeffrey Nelson on 02-06-2024 Platelet function (closure time) collagen+EPINEPHrine induced (Bld) [Time] 96 s Normal 70 - 138 second(s) [facility] Comment on above: Interpretive Data: N june ASA vWD Glansherimann s Thrombasthenia ------- ------ ------- COL/EPI Normal Abnormal Abnormal Abnormal Col/ADP Normal Normal Abnormal Abnormal Lab Miscellaneous-LCon 02-05 Test Code 497080 Invalid Interpretation Code [facility] Comment on above: Performed By: #### 1 [id number] #### [facility] [address] [place] [address] Test Name von Willebrand Invalid Interpretation Code [facility] Comment on above: Performed By: #### 1 [id number] #### [facility] [address] [id number] Plt Function Assayon 024 Platelet function (closure time) collagen+EPINEPHrine induced (Bld) [Time] 96 second(s) Normal 70-138 [facility] Comment on above: Result Comment: Ángel ross ASA vWD Moimann???s Thrombasthenia ------- ------ ------- COL/EPI Normal Abnormal Abnormal Abnormal Col/ADP Normal Normal Abnormal Abnormal Performed By: #### 1 [id number] #### [facility] [address] [place] [address] Reference Laboratory Testing Ordered By: Paulette Frye on 02-06-2024 Test Code 889295 1 Invalid Interpretation Code [facility] Test Name von Willebrand Invalid Interpretation Code [facility] Summaryon 1 04-06-2023 Ambulatory Visit [...] for choosing us for your care. Normal [facility] Provider Letteron 01-10-2024 Provider Letter Provider Letter January 10, 2024 XENA EWING [address] [place] [address] : 1955 Dear Irene Gildardo, We have been trying to reach you with no success regarding a referral from Dr Valle. It is important that you return our call upon receiving this letter. Also, at the time of your call, please provide us with your current information. Thank you for your prompt attention to this matter. Sincerely, [facility] General Surgery [phone] Normal [facility] MM screening mammo BI w/CADo n 12-27-2023 MM screening mammo BI w/CAD [facility] [address] Mammography Report Signed Patient: Xena Ewing MR#: [id number] : 1955 Acct:[id number] Age/Sex: 68 / F ADM Date: 12/27/23 Loc: [place] Room: Type: [facility] [address] Attending Dr: Referral Self Copies to: Anamika [...] Schmidt Jr., D.O.12/27/2023 1:07 PM Dictation Location: [facility] Transcribed By: PINO 12/27/231306 Dictated By: Blake Schmidt Jr, DO 12/27/231303 Signed By: 12/27/231306 Normal [facility] Panel Informationon 12-16 [facility] CNOV 10-23-2022 CNOV Office Visit (GENBMI ) XENA EWING ([id number]) 1955 [facility] Date Time Provider Department 10/23/22 [...] Surgery cc: Referring provider Anamika Valle [address] [facility] [id number] Medical Decision Making: Problems: Low: Stable chronic illness Data: Independent interpretation of test from other physician[facility] Medical Decision Making Level: 3 - Low Referring Provider: ANAMIKA VALLE [[id number]] Allergies As of Date: 10/23/2022 Noted Allergy [...] ANXIETY - (more content not included)... Normal [facility] PAP ACOG PANEL 2: 30 to 65on 04-26-2022 . . Normal [facility] Comment on above: Result Comment: Perf ormed at: WB Performed By: #### 4 [id number] #### [facility] [address] [place] [address] Dr. Kayy Virgen Age Gdln ACOG Testing 30-65 Normal [facility] Comment on above: Performed By: #### 4 [id number] #### [facility] [address] [address] [address] Kayy Virgen DIAGNOSIS: Comment Normal [facility] Comment on above: Result Comment: UNSA TISFACTORY FOR EVALUATION. Performed at: WB Performed By: #### 4 [id number] #### [facility] [address] [place] [address] Dr. Kayy Virgen HPV Aptima Negative Normal Negative [facility] Comment on above: Result Comment: This nucleic acid amplification test detects fourteen high-risk HPV types (16,18,31,33,35,39,45,51,52,56,58,59,66,68) without differentiation. Performed at: =G Performed By: #### 4 [id number] #### [facility] [address] [place] [address] Dr. Kayy Virgen HPV Genotype Reflex Comment Normal [facility] Comment on above: Result Comment: Crit eria not met, HPV Genotype not performed. Performed at: WB Performed By: #### 4 [id number] #### [facility] [address] [place] [address] Dr. Kayy Virgen Methodology: Comment Normal [facility] Comment on above: Result Comment: This liquid based ThinPrep(R) pap test was screened with the use of an image guided system. Performed at: WB Performed By: #### 4 [id number] #### [facility] [address] [place] [address] Dr. Kayy Virgen Note: Comment Normal [facility] Comment on above: Result Comment: The Pap smear is a screening test designed to aid in the detection of premalignant and malignant conditions of the uterine cervix. It is not a diagnostic procedure and should not be used as the sole means of detecting cervical cancer. Both false-positive and false-negative reports do occur. . Performed at: WB Performed By: #### 4 [id number] #### [facility] [address] [place] [address] Dr. Kayy Virgen Performed by: Comment Normal [facility] Comment on above: Result Comment: Arturo Peters, Electronic Commerce Specialist (ASCP) Performed at: KWCYT Performed By: #### 4 [id number] #### [facility] [address] [place] [address] Dr. Kayy Virgen QC reviewed by: Comment Normal [facility] Comment on above: Result Comment: Pepe Cordova, Supervisory Electronic Commerce Specialist (ASCP) Performed at: WB Performed By: #### 4 [id number] #### [facility] [address] [address] [address] Kayy Virgen Recommendation: Comment Normal [facility] Comment on above: Result Comment: Sugg est follow up as clinically appropriate. Performed at: WB Performed By: #### 4 [id number] #### [facility] [address] [address] [address] Kayy Virgen Specimen adequacy: Comment Normal [facility] Comment on above: Result Comment: Spec imen processed and examined but unsatisfactory for evaluation of epithelial abnormality because of insufficient cellularity. Performed at: WB Performed By: #### 4 [id number] #### [facility] [address] [address] [address] Kayy Virgen US THYROIDon 01-05-2022 US [...] by: ENIO MOHAN Date: 2022-01-05 15:25 Normal [facility] T4, T3U, FTI LABCORPon 11-10 Free Thyroxine Index 2.0 Normal 1.2-4.9 [facility] Comment on above: Performed By: #### T HYLC ####[facility] [address] [address]Dr. Kayy Virgen T3 Uptake 26 % Normal 24-39 [facility] Comment on above: Performed By: #### T HYLC ####[facility] [address] [place], [place] [address]Dr. Kayy Param T4 [Mass/Vol] 7.5 ug/dL Normal 4.5-12.0 [facility] Comment on above: Performed By: #### T HYLC ####[facility] [address] [place], [place] [address]Dr. Kayy Virgen CBC AUTO DIFFon 11-09-2021 BASO # 0.1 103/ul Normal 0.0-0.1 [facility] Comment on above: Performed By: #### C BC ####[facility] [address] [place], [place] [address]Dr. Shereesamia Virgen Basophils/100 WBC (Bld) 2.1 % Critically high 0.2-2.0 [facility] Comment on above: Performed By: #### C BC ####[facility] [address] [place], [place] [address]Dr. Kayy Param EO # 0.2 103/ul Normal 0.0-0.7 [facility] Comment on above: Performed By: #### C BC ####[facility] [address] [place], [place] [address]Dr. Kayy Virgen Eosinophils/100 WBC (Bld) 5.1 % Normal 0.9-7.0 [facility] Comment on above: Performed By: #### C BC ####[facility] [address] [place], [place] [address]Dr. Kayy Param Erythrocyte distribution width (RBC) [Ratio] 14.6 % Normal 11.0-15.0 [facility] Comment on above: Performed By: #### C BC ####[facility] [address] [address]Dr. Kayy Virgen Hematocrit (Bld) [Volume fraction] 38.5 % Normal 36.0-48.0 [facility] Comment on above: Performed By: #### C BC ####[facility] [address] [address]Dr. Shereesamia Virgen Hemoglobin (Bld) [Mass/Vol] 12.4 g/dL Normal 12.0-16.0 [facility] Comment on above: Performed By: #### C BC ####[facility] [address] [place], [place] [address]Dr. Kayy Virgen IG # 0.01 10e3/ul Normal 0.00-0.03 [facility] Comment on above: Performed By: #### C BC ####[facility] [address] [place], [place] [address]Dr. Kayy Virgen IG % 0.2 % Normal 0.0-0.5 [facility] Comment on above: Performed By: #### C BC ####[facility] [address] [place], [place] [address]Dr. Kayy Virgen LYMPH # 1.5 103/ul Normal 1.2-3.8 [facility] Comment on above: Performed By: #### C BC ####[facility] [address] [place], [place] [address]DrIrene Virgen Lymphocytes/100 WBC (Bld) 33.7 % Normal 20.5-60.0 [facility] Comment on above: Performed By: #### C BC ####[facility] [address] [address]DrIrene Virgen MANUAL DIFF REQ NO Normal [facility] Comment on above: Performed By: #### C BC ####[facility] [address] [place], [place] [address]DrIrene Virgen MCH (RBC) [Entitic mass] 26.7 pg Normal 26.7-34.0 [facility] Comment on above: Performed By: #### C BC ####[facility] [address] [place], [place] [address]Dr. Kayy Param MCHC (RBC) [Mass/Vol] 32.2 g/dL Normal 29.9-35.2 [facility] Comment on above: Performed By: #### C BC ####[facility] [address] [address]Dr. Kayy Virgen MCV (RBC) [Entitic vol] 82.8 fL Normal 81.0-99.0 [facility] Comment on above: Performed By: #### C BC ####[facility] [address] [address]Dr. Kayy Virgen MONO # 0.5 103/ul Normal 0.3-0.8 [facility] Comment on above: Performed By: #### C BC ####[facility] [address] [place], [place] [address]Dr. Kayy Virgen Monocytes/100 WBC (Bld) 11.9 % Normal 1.7-12.0 [facility] Comment on above: Performed By: #### C BC ####[facility] [address] [place], [place] [address]Dr. Kayy Virgen NEUT # 2.0 103/ul Normal 1.4-6.5 [facility] Comment on above: Performed By: #### C BC ####[facility] [address] [place], [place] [address]Dr. Kayy Virgen Neutrophils/100 WBC (Bld) 47.0 % Normal 43.0-75.0 [facility] Comment on above: Performed By: #### C BC ####[facility] [address] [place], [place] [address]Dr. Kayy Virgen Platelet mean volume (Bld) [Entitic vol] 9.7 fL Normal 9.5-13.5 [facility] Comment on above: Performed By: #### C BC ####[facility] [address] [place], [place] [address]Dr. Kayy Virgen PLT 269 103/ul Normal 150-450 [facility] Comment on above: Performed By: #### C BC ####[facility] [address] [address]Dr. Kayy Virgen RBC 4.65 106/ul Normal 4.20-5.40 [facility] Comment on above: Performed By: #### C BC ####[facility] [address] [id number]. Kayy Virgen WBC 4.3 103/ul Normal 4.0-11.0 [facility] Comment on above: Performed By: #### C BC ####[facility] [address] [id number]. Kayy Virgen GLYCOHEMOGLOBIN A1Con 2021 ADA RECOMMENDATION SEE BELOW Normal [facility] Comment on above: Result Comment: ADA RECOMMENDED LIMIT 4.0 - 6.0 ADA THERAPEUTIC TARGET < 7.0 ACTION SUGGESTED > 7.0 Performed By: #### A 1C #### [facility] [address] [address] [address] Kayy Virgen Glucose [Mass/Vol] 117 mg/dL Normal [facility] Comment on above: Performed By: #### A 1C #### [facility] [address] [address] [address] Kayy Virgen HbA1c (Bld) [Mass fraction] 5.7 % Normal 4.5-6.2 [facility] Comment on above: Performed By: #### A 1C #### [facility] [address] [address] [address] Kayy Virgen IRONon 11-09-2021 Iron [Mass/Vol] 100.0 ug/dL Normal 50.0-170.0 [facility] Comment on above: Performed By: #### I STEPHANI #### [facility] [address] [address] [address] Kayy Virgen PROF 14(COMP METB)on 022 Albumin [Mass/Vol] 4.0 g/dL Normal 3.4-5.0 [facility] Comment on above: Performed By: #### C MP, TSH #### [facility] [address] [address] [address] Kayy Virgen Albumin/Globulin [Mass ratio] 1.1 {ratio} Normal [facility] Comment on above: Performed By: #### C MP, TSH #### [facility] [address] [address] [address] Kayy Virgen ALP [Catalytic activity/Vol] 109 U/L Normal 46-116 [facility] Comment on above: Performed By: #### C MP, TSH #### [facility] [address] [address] [address] Kayy Virgen ALT [Catalytic activity/Vol] 26 U/L Normal 14-59 [facility] Comment on above: Performed By: #### C MP, TSH #### [facility] [address] [address] [address] Kayy Virgen Anion gap [Moles/Vol] 11.2 mmol/L Normal [facility] Comment on above: Performed By: #### C MP, TSH #### [facility] [address] [address] [address] Kayy Virgen AST [Catalytic activity/Vol] 58 U/L Critically high 15-37 [facility] Comment on above: Performed By: #### C MP, TSH #### [facility] [address] [address] [address] Kayy Virgen Bilirubin [Mass/Vol] 0.4 mg/dL Normal 0.2-1.0 [facility] Comment on above: Performed By: #### C MP, TSH #### [facility] [address] [address] [address] Kayy Virgen Calcium [Mass/Vol] 9.8 mg/dL Normal 8.5-10.1 [facility] Comment on above: Performed By: #### C MP, TSH #### [facility] [address] [address] [address] Kayy Virgen Chloride [Moles/Vol] 103 mmol/L Normal 98-107 [facility] Comment on above: Performed By: #### C MP, TSH #### [facility] [address] [address] [address] Kayy Virgen CO2 [Moles/Vol] 28.2 mmol/L Normal 21.0-32.0 [facility] Comment on above: Performed By: #### C MP, TSH #### [facility] [address] [address] [address] Kayy Virgen Creatinine [Mass/Vol] 0.98 mg/dL Normal 0.55-1.02 [facility] Comment on above: Performed By: #### C MP, TSH #### [facility] [address] [address] [address] Kayy Virgen EGFR-AF ALBANIAN >60 Normal >=60 [facility] Comment on above: Performed By: #### C MP, TSH #### [facility] Laboratory [address] [address] [address] Kayy Virgen EGFR-NON AF ALBANIAN 57 mL/min/1.73m2 Critically low >=60 [facility] Comment on above: Performed By: #### C MP, TSH #### [facility] Laboratory [address] [address] [address] Kayy Virgen Globulin (S) [Mass/Vol] 3.8 g/dL Normal [facility] Comment on above: Performed By: #### C MP, TSH #### [facility] Laboratory [address] [address] [address] Kayy Virgen Glucose [Mass/Vol] 102 mg/dL Normal 74-106 [facility] Comment on above: Performed By: #### C MP, TSH #### [facility] Laboratory [address] [address] [address] Kayy Virgen Potassium [Moles/Vol] 4.4 mmol/L Normal 3.5-5.1 [facility] Comment on above: Performed By: #### C MP, TSH #### [facility] Laboratory [address] [address] [address] Kayy Virgen Protein [Mass/Vol] 7.8 g/dL Normal 6.4-8.2 [facility] Comment on above: Performed By: #### C MP, TSH #### [facility] Laboratory [address] [address] [address] Kayy Virgen Sodium [Moles/Vol] 138 mmol/L Normal 136-145 [facility] Comment on above: Performed By: #### C MP, TSH #### [facility] Laboratory [address] [address] [address] Kayy Virgen Urea nitrogen [Mass/Vol] 22.0 mg/dL Critically high 7.0-18.0 [facility] Comment on above: Performed By: #### C MP, TSH #### [facility] Laboratory [address] [address] [address] Kayy Virgen Urea nitrogen/Creatinine [Mass ratio] 22.4 mg/mg Normal [facility] Comment on above: Performed By: #### C MP, TSH #### [facility] Laboratory [address] [address] [address] Kayy Virgen TSHon 11-09-2021 TSH 1.200 uIU/mL Normal 0.358-3.[address] [facility] Comment on above: Performed By: #### C MP, TSH #### [facility] Laboratory [address] [address] [address] Kayy Virgen AMYLASEon 08-31-2021 Amylase [Catalytic activity/Vol] 34 U/L Normal 25-115 [facility] Comment on above: Performed By: #### A MY, CMP, LIPA ####[facility] [address] [place], [place] [address]DrIrene Virgen CBC AUTO DIFFon 08-31-2021 BASO # 0.1 103/ul Normal 0.0-0.1 [facility] Comment on above: Performed By: #### C BC ####[facility] [address] [place], [place] [address]DrIrene Virgen Basophils/100 WBC (Bld) 0.8 % Normal 0.2-2.0 [facility] Comment on above: Performed By: #### C BC ####[facility] [address] [place], [place] [address]DrIrene Virgen EO # 0.0 103/ul Normal 0.0-0.7 [facility] Comment on above: Performed By: #### C BC ####[facility] [address] [place], [place] [address]DrIrene Virgen Eosinophils/100 WBC (Bld) 0.6 % Critically low 0.9-7.0 [facility] Comment on above: Performed By: #### C BC ####[facility] [address] [address]Dr. Kayy Virgen Erythrocyte distribution width (RBC) [Ratio] 13.9 % Normal 11.0-15.0 [facility] Comment on above: Performed By: #### C BC ####[facility] [address] [place], [place] [address]Dr. Kayy Virgen Hematocrit (Bld) [Volume fraction] 37.7 % Normal 36.0-48.0 [facility] Comment on above: Performed By: #### C BC ####[facility] [address] [place], [place] [address]Dr. Kayy Virgen Hemoglobin (Bld) [Mass/Vol] 12.3 g/dL Normal 12.0-16.0 [facility] Comment on above: Performed By: #### C BC ####[facility] [address] [place], [place] [address]Dr. Kayy Virgen IG # 0.02 10e3/ul Normal 0.00-0.03 [facility] Comment on above: Performed By: #### C BC ####[facility] [address] [place], [place] [address]Dr. Kayy Virgen IG % 0.3 % Normal 0.0-0.5 [facility] Comment on above: Performed By: #### C BC ####[facility] [address] [place], [place] [address]Dr. Kayy Virgen LYMPH # 1.4 103/ul Normal 1.2-3.8 [facility] Comment on above: Performed By: #### C BC ####[facility] [address] [place], [place] [address]Dr. Kayy Virgen Lymphocytes/100 WBC (Bld) 20.8 % Normal 20.5-60.0 [facility] Comment on above: Performed By: #### C BC ####[facility] [address] [place], [place] [address]Dr. Kayy Virgen MANUAL DIFF REQ NO Normal [facility] Comment on above: Performed By: #### C BC ####[facility] [address] [address]Dr. Kayy Param MCH (RBC) [Entitic mass] 26.9 pg Normal 26.7-34.0 [facility] Comment on above: Performed By: #### C BC ####[facility] [address] [address]Dr. Kayy Param MCHC (RBC) [Mass/Vol] 32.6 g/dL Normal 29.9-35.2 [facility] Comment on above: Performed By: #### C BC ####[facility] [address] [address]Dr. Kayy Virgen MCV (RBC) [Entitic vol] 82.5 fL Normal 81.0-99.0 [facility] Comment on above: Performed By: #### C BC ####[facility] [address] [address]Dr. Kayy Virgen MONO # 0.6 103/ul Normal 0.3-0.8 [facility] Comment on above: Performed By: #### C BC ####[facility] [address] [address]Dr. Kayy Virgen Monocytes/100 WBC (Bld) 8.8 % Normal 1.7-12.0 [facility] Comment on above: Performed By: #### C BC ####[facility] [address] [address]DrIrene Virgen NEUT # 4.5 103/ul Normal 1.4-6.5 [facility] Comment on above: Performed By: #### C BC ####[facility] [address] [address]DrIrene Virgen Neutrophils/100 WBC (Bld) 68.7 % Normal 43.0-75.0 [facility] Comment on above: Performed By: #### C BC ####[facility] [address] [place], [place] [address]Dr. Kayy Virgen Platelet mean volume (Bld) [Entitic vol] 10.2 fL Normal 9.5-13.5 [facility] Comment on above: Performed By: #### C BC ####[facility] [address] [place], [place] [address]Ep. Kayy Virgen PLT 265 103/ul Normal 150-450 [facility] Comment on above: Performed By: #### C BC ####[facility] [address] [id number]. Kayy Virgen RBC 4.57 106/ul Normal 4.20-5.40 [facility] Comment on above: Performed By: #### C BC ####[facility] [address] [id number]. Kayy Virgen WBC 6.5 103/ul Normal 4.0-11.0 [facility] Comment on above: Performed By: #### C BC ####[facility] [id number] Kayy Virgen CT ABD/PELVIS WO CONon 08-31 [...] DANNA CASTLE Date: 2021-08-31 12:25 Normal [facility] ER URINE PROFILEon 2 Bilirubin Ql (U) Negative Normal NEGATIVE [facility] Comment on above: Performed By: #### E RUR #### [facility] Laboratory [address] [place] [address] Dr. Kayy Virgen Clarity (U) CLEAR Normal CLEAR [facility] Comment on above: Performed By: #### E RUR #### [facility] Laboratory [address] [place] [address] Dr. Kayy Virgen Color (U) LT. YELLOW Normal YELLOW [facility] Comment on above: Performed By: #### E RUR #### [facility] Laboratory [address] [place] [address] Dr. Kayy Virgen ERUDODIE A micrscopic examination will be performed if indicated. Normal [facility] Comment on above: Performed By: #### E RUR #### [facility] Laboratory [address] [place] [address] Dr. Kayy Virgen Glucose Ql (U) Negative Normal NEGATIVE [facility] Comment on above: Performed By: #### E RUR #### [facility] Laboratory [address] [address] [address] Kayy Virgen Hemoglobin Ql (U) Negative Normal NEGATIVE [facility] Comment on above: Performed By: #### E RUR #### [facility] Laboratory [address] [place] [address] Dr. Kayy Virgen Ketones Ql (U) Negative Normal NEGATIVE [facility] Comment on above: Performed By: #### E RUR #### [facility] Laboratory [address] [place] [address] Dr. Kayy Virgen LEUKOCYTES Negative Normal NEGATIVE [facility] Comment on above: Performed By: #### E RUR #### [facility] Laboratory [address] [place] [address] Dr. Kayy Virgen Nitrite Ql (U) Negative Normal NEGATIVE [facility] Comment on above: Performed By: #### E RUR #### [facility] Laboratory [address] [place] [address] Dr. Kayy Virgen pH (U) 6.0 [pH] Normal 5-9 [facility] Comment on above: Performed By: #### E RUR #### [facility] Laboratory [address] [place] [address] Dr. Kayy Virgen SPEC GRAVITY <=1.005 Abnormal 1.005-<=1.02 5 [facility] Comment on above: Performed By: #### E RUR #### [facility] Laboratory [address] [place] [address] Dr. Kayy Virgen UA PROTEIN Negative Normal NEGATIVE/ TRACE [facility] Comment on above: Performed By: #### E RUR #### [facility] Laboratory [address] [place] [address] Dr. Kayy Virgen UR MICRO IND NOT INDICATED Normal [facility] Comment on above: Performed By: #### E RUR #### [facility] Laboratory [address] [place] [address] Dr. Kayy Virgen Urobilinogen Qn (U) 0.2 {Cuauhtemoc'U}/dL Normal 0.2 - 1. 0 [facility] Comment on above: Performed By: #### E RUR #### [facility] Laboratory [address] [place] [address] Dr. Kayy Virgen LIPASEon 08-31-2021 Lipase [Catalytic activity/Vol] 73.0 U/L Normal 73.0-393.0 [facility] Comment on above: Performed By: #### A MY, CMP, LIPA #### [facility] Laboratory [address] [place] [address] Dr. Kayy Virgen PROF 14(COMP METB)on Albumin [Mass/Vol] 3.6 g/dL Normal 3.4-5.0 [facility] Comment on above: Performed By: #### A MY, CMP, LIPA ####[facility] [address] [address]Dr. Kayy Param Albumin/Globulin [Mass ratio] 0.9 {ratio} Normal [facility] Comment on above: Performed By: #### A MY, CMP, LIPA ####[facility] [address] [address]Dr. Kayy Param ALP [Catalytic activity/Vol] 98 U/L Normal 46-116 [facility] Comment on above: Performed By: #### A MY, CMP, LIPA ####[facility] [address] [place], [place] [address]Dr. Kayy Param ALT [Catalytic activity/Vol] 22 U/L Normal 14-59 [facility] Comment on above: Performed By: #### A MY, CMP, LIPA ####[facility] [address] [place], [place] [address]Dr. Kayy Virgen Anion gap [Moles/Vol] 12.6 mmol/L Normal [facility] Comment on above: Performed By: #### A MY, CMP, LIPA ####[facility] [address] [place], [place] [address]Dr. Shereesamia Virgen AST [Catalytic activity/Vol] 44 U/L Critically high 15-37 [facility] Comment on above: Performed By: #### A MY, CMP, LIPA ####[facility] [address] [place], [place] [address]Dr. Kayy Virgen Bilirubin [Mass/Vol] 0.5 mg/dL Normal 0.2-1.0 [facility] Comment on above: Performed By: #### A MY, CMP, LIPA ####[facility] [address] [place], [place] [address]Dr. Kayy Virgen Calcium [Mass/Vol] 9.2 mg/dL Normal 8.5-10.1 [facility] Comment on above: Performed By: #### A MY, CMP, LIPA ####[facility] [address] [place], [place] [address]Dr. Kayy Virgen Chloride [Moles/Vol] 104 mmol/L Normal 98-107 [facility] Comment on above: Performed By: #### A MY, CMP, LIPA ####[facility] [address] [address]Dr. Kayy Virgen CO2 [Moles/Vol] 24.3 mmol/L Normal 21.0-32.0 [facility] Comment on above: Performed By: #### A MY, CMP, LIPA ####[facility] [address] [address]Dr. Kayy Virgen Creatinine [Mass/Vol] 0.87 mg/dL Normal 0.55-1.02 [facility] Comment on above: Performed By: #### A MY, CMP, LIPA ####[facility] [address] [address]Dr. Kayy Virgen EGFR-AF ALBANIAN >60 Normal >=60 [facility] Comment on above: Performed By: #### A MY, CMP, LIPA ####[facility] [address] [address]Dr. Kayy Virgen EGFR-NON AF ALBANIAN >60 Normal >=60 [facility] Comment on above: Performed By: #### A MY, CMP, LIPA ####[facility] [address] [address]Dr. Kayy Virgen Globulin (S) [Mass/Vol] 4.0 g/dL Normal [facility] Comment on above: Performed By: #### A MY, CMP, LIPA ####[facility] [address] [address]Dr. Kayy Virgen Glucose [Mass/Vol] 96 mg/dL Normal 74-106 [facility] Comment on above: Performed By: #### A MY, CMP, LIPA ####[facility] [address] [address]Dr. Kayy Virgen Potassium [Moles/Vol] 3.9 mmol/L Normal 3.5-5.1 [facility] Comment on above: Performed By: #### A MY, CMP, LIPA ####[facility] [address] [place], [place] [address]Ym. Kayy Virgen Protein [Mass/Vol] 7.6 g/dL Normal 6.4-8.2 [facility] Comment on above: Performed By: #### A MY, CMP, LIPA ####[facility] [address] [place], [place] [address]Ie. Kayy Virgen Sodium [Moles/Vol] 137 mmol/L Normal 136-145 [facility] Comment on above: Performed By: #### A MY, CMP, LIPA ####[facility] [address] [place], [place] [address]Nv. Kayy Virgen Urea nitrogen [Mass/Vol] 11.0 mg/dL Normal 7.0-18.0 [facility] Comment on above: Performed By: #### A MY, CMP, LIPA ####[facility] [address] [place], [place] [address]Ya. Kayy Virgen Urea nitrogen/Creatinine [Mass ratio] 12.6 mg/mg Normal [facility] Comment on above: Performed By: #### A MY, CMP, LIPA ####[facility] [address] [place], [place] [address]Du. Kayy Virgen US THYROID FN ASP BXon 07-05 US THYROID FN ASP BX Begin Addendum #1 COLLECTED DATE/TIME: 06/29/2021 13:56 EDT Final Diagnosis Report for [facility] [place] (A/B) RIGHT THYROID NODULE; FINE NEEDLE [...] (FNA). 2. Pathology results are pending. Normal [facility] US THYROIDon 06-21-2021 US THYROID EXAMINATION: [...] by: ENIO MOHAN Date: 2021-06-21 12:10 Normal [facility] US CAROTID ART BILon 03-24-2 022 US CAROTID ART JEANNE EXAMINATION: US [...] by: DANNA CASTLE Date: 2021-06-08 13:16 Normal [facility] Blood Occult Stool Screen #1 on 10-13-2019 Date, Stool #1 [id number] [facility] [place] [place] Date, Stool #2 [...] 2019 Occult Blood 1 Negative Normal NEG [facility] Comment on above: Performed By: #### O BN #### [facility] Lab [address] [place], [place] [id number] [employer] Officer: Elisabeth Worthy MD Specimen 1 Date Normal [facility] Comment on above: Performed By: #### O BN #### [facility] [address] [place], [place] [id number] [employer] Officer: Elisabeth Worthy MD Specimen 1 Time 1199 Normal [facility] Comment on above: Performed By: #### O BN #### [facility] [address] [place], [place] [id number] [employer] Officer: Elisabeth Worthy MD Specimen 2 Date NOT REPORTED Normal [facility] Comment on above: Performed By: #### O BN #### [facility] [address] [place], [place] [id number] [employer] Officer: Elisabeth Worthy MD Specimen 2 Time NOT REPORTED Normal [facility] Comment on above: Performed By: #### O BN #### [facility] [address] [place], [place] [id number] [employer] Officer: Elisabeth Worthy MD Specimen 3 Date NOT REPORTED Normal [facility] Comment on above: Performed By: #### O BN #### [facility] [address] [place], [place] [id number] [employer] Officer: Elisabeth Worthy MD Specimen 3 Time NOT REPORTED Normal [facility] Comment on above: Performed By: #### O BN #### [facility] [address] [place], [place] [id number] [employer] Officer: Elisabeth Worthy MD Occult Blood 2 NOT REPORTED Normal NEG [facility] Comment on above: Performed By: #### O BN #### [facility] [address] [place], [place] [id number] [employer] Officer: Elisabeth Worthy MD Occult Blood 3 NOT REPORTED Normal NEG [facility] Comment on above: Performed By: #### O BN #### [facility] [address] [place], [place] [id number] [employer] Officer: Elisabeth Worthy MD Free Thyroxine Indexon 10-07 FTI Ratio 2.0 ug/dL Normal 1.4-3.1 [facility] Comment on above: Performed By: #### F TI, FE #### [address] [id number] [employer] Officer: Otoniel Ash MD #### TSH, LIPR, CP, GLYHGB, CDP #### [facility] [address] [place] [address] [employer] Officer: Elisabeth Worthy MD T4 [Mass/Vol] 29.74 % Normal 22.5-37.0 [facility] Comment on above: Performed By: #### F TI, FE #### [address] [id number] [employer] Officer: Otoniel Ash MD #### TSH, LIPR, CP, GLYHGB, CDP #### [facility] [address] [place] [address] [employer] Officer: Elisabeth Worthy MD T4 [Mass/Vol] 6.6 ug/dL Normal 4.5-10.9 [facility] Comment on above: Performed By: #### F TI, FE #### [address] [place], [place] [address] [employer] Officer: Otoniel Ash MD #### TSH, LIPR, CP, GLYHGB, CDP #### [facility] [address] [place] [address] [employer] Officer: Elisabeth Worthy MD Ironon 10-08-2019 Iron [Mass/Vol] 73 ug/dL Normal 37-145 [facility] Comment on above: Performed By: #### F TI, FE #### [address] [id number] [employer] Officer: Otoniel Ash MD #### TSH, LIPR, CP, GLYHGB, CDP #### [facility] [address] [place] [address] [place] [address] [employer] Officer: Elisabeth Worthy MD T3 uptake and FTIon 10-08-19 20 Free Thyroxine Index 2 ug/dL 1.4 - 3 .1 ug/dL [place] T4 [Mass/Vol] 29.74 % 22.5 - 37 % [place] T4, Total 6.6 ug/dL 4.5 - 10.9 ug/dL [place] CBC Auto Differentialon 09-16 Basophils (Bld) [#/Vol] 0.07 10*3/uL [place] Basophils/100 WBC (Bld) 1 % 0 - 2 % [place] Differential Type NOT REPORTED [place] Eosinophils (Bld) [#/Vol] 0.06 10*3/uL [place] Eosinophils/100 WBC (Bld) 1 % 1 - 4 % [place] Erythrocyte distribution width (RBC) [Ratio] 14.5 % High 11.8 - 14.4 % [place] Hematocrit (Bld) [Volume fraction] 42.4 % 36.3 - 47.1 % [place] Hemoglobin (Bld) [Mass/Vol] 13.2 g/dL 11.9 - 15.1 g/dL [place] Immature granulocytes (Bld) [#/Vol] 10*3/uL [place] Immature granulocytes (Bld) [#/Vol] 0 % 0 [place] Interpretation and review of laboratory results Abnormal [place] Lymphocytes (Bld) [#/Vol] 1.87 10*3/uL [place] Lymphocytes/100 WBC (Bld) 33 % 24 - 43 % [place] MCH (RBC) [Entitic mass] 26.1 pg 25.2 - 33.5 pg [place] MCHC (RBC) [Mass/Vol] 31.1 g/dL 28.4 - 34.8 g/dL [place] MCV (RBC) [Entitic vol] 84.0 fL 82.6 - 102.9 fL [place] Monocytes (Bld) [#/Vol] 0.45 10*3/uL [place] Monocytes/100 WBC (Bld) 8 % 3 - 12 % [place] Platelet mean volume (Bld) [Entitic vol] 10.1 fL 8.1 - 13.5 fL [place] Platelets (Bld) [#/Vol] 270 10*3/uL [place] Platelets (Bld) [#/Vol] NOT REPORTED [place] RBC (Bld) [#/Vol] 5.05 10*6/uL 3.95 - 5.1 1 m/uL [place] RBC morphology finding Nom (Bld) NOT REPORTED [place] Segmented neutrophils/100 WBC (Bld) 57 % 36 - 65 % [place] Segs Absolute 3.17 [place] WBC (Bld) [#/Vol] 5.6 10*3/uL [place] WBC (Bld) [#/Vol] 0.0 10*3/uL 0.0 per 10 0 WBC [place] WBC Morphology NOT REPORTED [place] CBC with Diffon 10-07-2019 Abs. Basophil 0.07 k/uL Normal 0.00-0.20 [facility] Comment on above: Performed By: #### F TI, FE #### [address] [address] [employer] Officer: Otoniel Ash MD #### TSH, LIPR, CP, GLYHGB, CDP #### [address] [place] [id number] [employer] Officer: Elisabeth Worthy MD Abs.Imm.Granulocyte <0.03 Normal 0.00-0.30 [facility] Comment on above: Performed By: #### F TI, FE #### [address] [address] [employer] Officer: Otoniel Ash MD #### TSH, LIPR, CP, GLYHGB, CDP #### [address] [place] [id number] [employer] Officer: Elisabeth Worthy MD Abs.Neutrophil (Seg) 3.17 k/uL Normal 1.50-8.10 [facility] Comment on above: Performed By: #### F TI, FE #### [address] [address] [employer] Officer: Otoniel Ash MD #### TSH, LIPR, CP, GLYHGB, CDP #### [address] [place] [id number] [employer] Officer: Elisabeth Worthy MD Basophils/100 WBC (Bld) 1 % Normal 0-2 [facility] Comment on above: Performed By: #### F TI, FE #### [address] [id number] [employer] Officer: Otoniel Ash MD #### TSH, LIPR, CP, GLYHGB, CDP #### [address] [place] [id number] [employer] Officer: Elisabeth Worthy MD Eosinophils (Bld) [#/Vol] 0.06 10*3/uL Normal 0.00-0.44 [facility] Comment on above: Performed By: #### F TI, FE #### [address] [id number] [employer] Officer: Otoniel Ash MD #### TSH, LIPR, CP, GLYHGB, CDP #### [address] [place] [id number] [employer] Officer: Elisabeth Worthy MD Eosinophils/100 WBC (Bld) 1 % Normal 1-4 [facility] Comment on above: Performed By: #### F TI, FE #### [address] [id number] [employer] Officer: Otoniel Ash MD #### TSH, LIPR, CP, GLYHGB, CDP #### [address] [place] [id number] [employer] Officer: Elisabeth Worthy MD Erythrocyte distribution width (RBC) [Ratio] 14.5 % High 11.8-14.4 [facility] Comment on above: Performed By: #### F TI, FE #### [address] [id number] [employer] Officer: Otoniel Ash MD #### TSH, LIPR, CP, GLYHGB, CDP #### [address] [place] [id number] [employer] Officer: Elisabeth Worthy MD Hematocrit (Bld) [Volume fraction] 42.4 % Normal 36.3-47.1 [facility] Comment on above: Performed By: #### F TI, FE #### [address] [id number] [employer] Officer: Otoniel Ash MD #### TSH, LIPR, CP, GLYHGB, CDP #### [address] [place] [id number] [employer] Officer: Elisabeth Worthy MD Hemoglobin (Bld) [Mass/Vol] 13.2 g/dL Normal 11.9-15.1 [facility] [facility] Comment on above: Performed By: #### F TI, FE #### [address] [address] [employer] Officer: Otoniel Ash MD #### TSH, LIPR, CP, GLYHGB, CDP #### [address] [place] [phone] [employer] Officer: Elisabeth Worthy MD Immature granulocytes (Bld) [#/Vol] 0 % Normal 0 [facility] Comment on above: Performed By: #### F TI, FE #### [address] [address] [employer] Officer: Otoniel Ash MD #### TSH, LIPR, CP, GLYHGB, CDP #### [address] [place] [phone] [employer] Officer: Elisabeth Worthy MD Lymphocytes (Bld) [#/Vol] 1.87 10*3/uL Normal 1.10-3.70 [facility] Comment on above: Performed By: #### F TI, FE #### [address] [id number] [employer] Officer: Otoniel Ash MD #### TSH, LIPR, CP, GLYHGB, CDP #### [address] [place] [phone] [employer] Officer: Elisabeth Worthy MD Lymphocytes/100 WBC (Bld) 33 % Normal 24-43 [facility] Comment on above: Performed By: #### F TI, FE #### [address] [address] [employer] Officer: Otoniel Ash MD #### TSH, LIPR, CP, GLYHGB, CDP #### [address] [place] [phone] [employer] Officer: Eilsabeth Worthy MD MCH (RBC) [Entitic mass] 26.1 pg Normal 25.2-33.5 [facility] Comment on above: Performed By: #### F TI, FE #### [address] [id number] [employer] Officer: Otoniel Ash MD #### TSH, LIPR, CP, GLYHGB, CDP #### [address] [place] [phone] [employer] Officer: Elisabeth Worthy MD MCHC (RBC) [Mass/Vol] 31.1 g/dL Normal 28.4-34.8 [facility] Comment on above: Performed By: #### F HUMBRETO, FE #### [place] [address] [employer] Officer: Otoniel Ash MD #### TSH, LIPR, CP, GLYHGB, CDP #### [address] [place] [phone] [employer] Officer: Elisabeth Worthy MD MCV (RBC) [Entitic vol] 84.0 fL Normal 82.6-102.9 [facility] Comment on above: Performed By: #### F TI, FE #### [address] [phone] [employer] Officer: Otoniel Ash MD #### TSH, LIPR, CP, GLYHGB, CDP #### [address] [place], [place] [id number] [employer] Officer: Elisabeth Worthy MD Monocytes (Bld) [#/Vol] 0.45 10*3/uL Normal 0.10-1.20 [facility] Comment on above: Performed By: #### F TI, FE #### [address] [phone] [employer] Officer: Otoniel Ash MD #### TSH, LIPR, CP, GLYHGB, CDP #### [address] [place] [address] [employer] Officer: Elisabeth Worthy MD Monocytes/100 WBC (Bld) 8 % Normal 3-12 [facility] Comment on above: Performed By: #### F TI, FE #### [address] [id number] [employer] Officer: Otoniel Ash MD #### TSH, LIPR, CP, GLYHGB, CDP #### [address] [place] [address] [employer] Officer: Elisabeth Worthy MD Neutrophil (Seg) 57 % Normal 36-65 [facility] Comment on above: Performed By: #### F TI, FE #### [address] [id number] [employer] Officer: Otoniel Ash MD #### TSH, LIPR, CP, GLYHGB, CDP #### [address] [place] [address] [employer] Officer: Elisabeth Worthy MD NRBC Automated 0.0 per 100 WBC Normal 0.0 [facility] Comment on above: Performed By: #### F TI, FE #### [address] [phone] [employer] Officer: Otoniel Ash MD #### TSH, LIPR, CP, GLYHGB, CDP #### [address] [place] [phone] [employer] Officer: Elisabeth Worthy MD Platelet mean volume (Bld) [Entitic vol] 10.1 fL Normal 8.1-13.5 [facility] Comment on above: Performed By: #### F TI, FE #### [address] [address] [employer] Officer: Otoniel Ash MD #### TSH, LIPR, CP, GLYHGB, CDP #### [address] [place], [place] [id number] [employer] Officer: Elisabeth Worthy MD Platelets (Bld) [#/Vol] 270 10*3/uL Normal 138-453 [facility] Comment on above: Performed By: #### F TI, FE #### [address] [address] [employer] Officer: Otoniel Ash MD #### TSH, LIPR, CP, GLYHGB, CDP #### [address] [place] [phone] [employer] Officer: Elisabeth Worthy MD RBC (Bld) [#/Vol] 5.05 10*6/uL Normal 3.95-5.11 [facility] Comment on above: Performed By: #### F TI, FE #### [address] [address] [employer] Officer: Otoniel Ash MD #### TSH, LIPR, CP, GLYHGB, CDP #### [address] [place], [place] [id number] [employer] Officer: Elisabeth Worthy MD WBC (Bld) [#/Vol] 5.6 10*3/uL Normal 3.5-11.3 [facility] Comment on above: Performed By: #### F TI, FE #### [address] [address] [employer] Officer: Otoniel Ash MD #### TSH, LIPR, CP, GLYHGB, CDP #### [address] [place] [phone] [employer] Officer: Elisabeth Worthy MD Auto Diff Performed NOT REPORTED Normal [facility] Comment on above: Performed By: #### F TI, FE #### [address] [address] [employer] Officer: Otoniel Ash MD #### TSH, LIPR, CP, GLYHGB, CDP #### [address] [place] [phone] [employer] Officer: Elisabeth Worthy MD Platelets (Bld) [#/Vol] NOT REPORTED Normal [facility] Comment on above: Performed By: #### F TI, FE #### [address] [address] [employer] Officer: Otoniel Ash MD #### TSH, LIPR, CP, GLYHGB, CDP #### [address] [place] [phone] [employer] Officer: Elisabeth Worthy MD RBC morphology finding Nom (Bld) NOT REPORTED Normal [facility] Comment on above: Performed By: #### F TI, FE #### [address] [address] [employer] Officer: Otoniel Ash MD #### TSH, LIPR, CP, GLYHGB, CDP #### [facility] [address] [place] [address] Dr. [place] [id number] [employer] Officer: Elisabeth Worthy MD WBC Morphology NOT REPORTED Normal [facility] Comment on above: Performed By: #### F TI, FE #### [address] [address] [employer] Officer: Otoniel Ash MD #### TSH, LIPR, CP, GLYHGB, CDP #### [address] [place] [address] [employer] Officer: lEisabeth Worthy MD Comp Metabolic Profon 2019 (cont.) [facility] Comment on above: Result Comment: Aver age GFR for 60-69 years old: 85 mL/min/1.73sq m Chronic Kidney Disease: <60 mL/min/1.73sq m Kidney failure: <15 mL/min/1.73sq m eGFR calculated using average adult body mass. Additional eGFR calculator available at: http://www.[employer]/multiple_crcl_2011.htm Performed By: #### Jeraime PAUL FE #### [address] [id number] [employer] Officer: Otoniel Ash MD #### TSH, LIPR, CP, GLYHGB, CDP #### [address] [place] [phone] [employer] Officer: Elisabeth Worthy MD Albumin [Mass/Vol] 4.5 g/dL Normal 3.5-5.2 [facility] Comment on above: Performed By: #### Jeramie PAUL FE #### [address] [id number] [employer] Officer: Otoniel Ash MD #### TSH, LIPR, CP, GLYHGB, CDP #### [address] [place] [phone] [employer] Officer: Elisabeth Worthy MD Albumin/Globulin [Mass ratio] 1.4 {ratio} Normal 1.0-2.5 [facility] Comment on above: Performed By: #### Jeramie PAUL, FE #### [address] [phone] [employer] War[employer] Officer: Otoniel Ash MD #### TSH, LIPR, CP, GLYHGB, CDP #### [address] [place] [address] [employer] Officer: Elisabeth Worthy MD Alkaline Phos 94 U/L Normal 35-104 [facility] Comment on above: Performed By: #### F TI, FE #### [address] [id number] [employer] Officer: Otoniel Ash MD #### TSH, LIPR, CP, GLYHGB, CDP #### [address] [place] [address] [employer] War[employer] Officer: Elisabeth Worthy MD ALT [Catalytic activity/Vol] 10 U/L Normal 5-33 [facility] Comment on above: Performed By: #### F TI, FE #### [address] [id number] [employer] War[employer] Officer: Otoniel Ash MD #### TSH, LIPR, CP, GLYHGB, CDP #### [address] [place] [address] [employer] Officer: Elisabeth Worthy MD Anion gap [Moles/Vol] 12 mmol/L Normal 9-17 [facility] Comment on above: Performed By: #### F TI, FE #### [address] [phone] [employer] War[employer] Officer: Otoniel Ash MD #### TSH, LIPR, CP, GLYHGB, CDP #### [address] [place] [address] [employer] Officer: Elisabeth Worthy MD AST [Catalytic activity/Vol] 40 U/L High <32 [facility] Comment on above: Performed By: #### F TI, FE #### [address] [id number] [employer] War[employer] Officer: Otoniel Ash MD #### TSH, LIPR, CP, GLYHGB, CDP #### [address] [place] [address] [employer] Officer: Elisabeth Worthy MD Bilirubin Ql (U) 0.27 mg/dL Low 0.3-1.2 [facility] Comment on above: Performed By: #### F TI, FE #### [address] [id number] [employer] War[employer] Officer: Otoniel Ash MD #### TSH, LIPR, CP, GLYHGB, CDP #### [address] [place] [address] [employer] War[employer] Officer: Elisabeth Worthy MD BUN/CRE Ratio 22 High 9-20 [facility] Comment on above: Performed By: #### F TI, FE #### [address] [id number] [employer] Officer: Otoniel Ash MD #### TSH, LIPR, CP, GLYHGB, CDP #### [address] [place] [phone] [employer] War[employer] Officer: Elisabeth Worthy MD Calcium [Mass/Vol] 10.0 mg/dL Normal 8.6-10.4 [facility] Comment on above: Performed By: #### F TI, FE #### [address] [id number] [employer] Officer: Otoniel Ash MD #### TSH, LIPR, CP, GLYHGB, CDP #### [address] [place] [phone] [employer] Officer: Elisabeth Worthy MD Chloride [Moles/Vol] 105 mmol/L Normal 98-107 [facility] Comment on above: Performed By: #### F TI, FE #### [address] [id number] [employer] War[employer] Officer: Otoniel Ash MD #### TSH, LIPR, CP, GLYHGB, CDP #### [address] [place] [phone] [employer] War[employer] Officer: Elisabeth Worthy MD CO2 [Moles/Vol] 21 mmol/L Normal 20-31 [facility] Comment on above: Performed By: #### F TI, FE #### [address] [address] [employer] Officer: Otoniel Ash MD #### TSH, LIPR, CP, GLYHGB, CDP #### [address] [place] [address] [employer] War[employer] Officer: Elisabeth Worthy MD Creatinine [Mass/Vol] 0.79 mg/dL Normal 0.50-0.90 [facility] Comment on above: Performed By: #### F TI, FE #### [address] [id number] [employer] War[employer] Officer: Otoniel Ash MD #### TSH, LIPR, CP, GLYHGB, CDP #### [address] [place], [place] [id number] [employer] War[employer] Officer: Elisabeth Worthy MD GFR, Amer >60 Normal >60 [facility] Comment on above: Performed By: #### F TI, FE #### [address] [address] [employer] Officer: Otoniel Ash MD #### TSH, LIPR, CP, GLYHGB, CDP #### [address] [place], [place] [id number] [employer] War[employer] Officer: Elisabeth Worthy MD GFR,non Amer >60 Normal >60 [facility] Comment on above: Performed By: #### F TI, FE #### [address] [address] [employer] War[employer] Officer: Otoniel Ash MD #### TSH, LIPR, CP, GLYHGB, CDP #### [address] [place] [address] [employer]/Anti Air Warfare Officer: Elisabeth Worthy MD Glucose [Mass/Vol] 99 mg/dL Normal 70-99 [facility] Comment on above: Performed By: #### F TI, FE #### [address] [address] [employer] Officer: Otoniel Ash MD #### TSH, LIPR, CP, GLYHGB, CDP #### [address] [place] [phone] [employer] Officer: Elisabeth Worthy MD Potassium [Moles/Vol] 4.1 mmol/L Normal 3.7-5.3 [facility] Comment on above: Performed By: #### F TI, FE #### [address] [phone] [employer] Officer: Otoniel Ash MD #### TSH, LIPR, CP, GLYHGB, CDP #### [address] [place] [phone] [employer] War[employer] Officer: lEisabeth Worthy MD Protein [Mass/Vol] 7.7 g/dL Normal 6.4-8.3 [facility] Comment on above: Performed By: #### F TI, FE #### [address] [phone] [employer] Officer: Otoniel Ash MD #### TSH, LIPR, CP, GLYHGB, CDP #### [address] [place] [id number] [employer] Officer: Elisabeth Worthy MD Sodium [Moles/Vol] 138 mmol/L Normal 135-144 [facility] Comment on above: Performed By: #### F TI, FE #### [address] [id number] [employer] Officer: Otoniel Ash MD #### TSH, LIPR, CP, GLYHGB, CDP #### [address] [place] [address] [employer] Officer: Elisabeth Worthy MD Staging: Normal [facility] Comment on above: Result Comment: Stag e 1: Some kidney damage normal GFR Stage 2: Mild kidney damage GFR 60-89 Stage 3: Moderate kidney damage GFR 30-59 Stage 4: Severe kidney damage GFR 15-29 Stage 5: Severe kidney damage GFR <15 ESRD - chronic treatment by dialysis or transplant Performed By: #### F TI, FE #### [place] [address] [place], [place] 6958108 [employer] Officer: Otoniel Ash MD #### TSH, LIPR, CP, GLYHGB, CDP #### [facility] [address] [place] [address] [place] [address] [employer] Officer: Elisabeth Worthy MD Urea nitrogen [Mass/Vol] 17 mg/dL Normal 8-23 [facility] Comment on above: Performed By: #### F TI, FE #### [address] [address] [employer] War[employer] Officer: Otoniel Ash MD #### TSH, LIPR, CP, GLYHGB, CDP #### [address] [place] [address] [employer] Officer: Elisabeth Worthy MD Comprehensive Metabolic Pane [facility] 10-07-2019 Albumin [Mass/Vol] 4.5 g/dL 3.5 - 5.2 g/dL [place] Albumin/Globulin [Mass ratio] 1.4 {ratio} [place] ALP [Catalytic activity/Vol] 94 U/L 35 - 104 U/L [place] ALT [Catalytic activity/Vol] 10 U/L 5 - 33 U/L [place] Anion gap [Moles/Vol] 12 mmol/L 9 - 17 mmol/L [place] AST [Catalytic activity/Vol] 40 U/L High <32 [place] Bilirubin Ql (U) 0.27 mg/dL Low 0.3 - 1.2 mg/dL [place] Bun/Cre Ratio 22 High [place] Calcium [Mass/Vol] 10.0 mg/dL 8.6 - 10. 4 mg/dL [place] Chloride [Moles/Vol] 105 mmol/L 98 - 10 7 mmol/L [place] CO2 [Moles/Vol] 21 mmol/L 20 - 31 mmol/L [place] Creatinine [Mass/Vol] 0.79 mg/dL 0.5 - 0.9 mg/dL [place] GFR >60 >60 mL/min [place] GFR Non- >60 >60 mL/min [place] Glucose [Mass/Vol] 99 mg/dL 70 - 99 mg/dL [place] Potassium [Moles/Vol] 4.1 mmol/L 3.7 - 5.3 mmol/L [place] Protein [Mass/Vol] 7.7 g/dL 6.4 - 8.3 g/dL [place] Sodium [Moles/Vol] 138 mmol/L 135 - 144 mmol/L [place] Urea nitrogen [Mass/Vol] 17 mg/dL 8 - 23 mg/dL [place] Hemoglobin A1Con 10-07-2019 HbA1c (Bld) [Mass fraction] 5.3 % Normal 4.8-5.9 [facility] Comment on above: Performed By: #### F TI, FE #### [facility] [address] [place] [address] [employer] Officer: Otoniel Ash MD #### TSH, LIPR, CP, GLYHGB, CDP #### [facility] [address] [place] [address] [employer] Officer: Elisabeth Worthy MD HbA1c (Bld) [Mass fraction] 105 mg/dL Normal [facility] Comment on above: Result Comment: The ADA and AACC recommend providing the estimated average glucose result to permit better patient understanding of their HBA1c result. Performed By: #### F TI, FE #### [place] [address] [place], [place] [id number] [employer] Officer: Otoniel Ash MD #### TSH, LIPR, CP, GLYHGB, CDP #### [facility] [address] [place] [address] [employer] Officer: Elisabeth Worthy MD Glucose [Mass/Vol] 105 mg/dL [place] Comment on above: The ADA and AACC rec ommend providing the estimated average glucose result to permit better patient understanding of their HBA1c result. HbA1c (Bld) [Mass fraction] 5.3 % 4.8 - 5.9 % [place] Ironon 10-07-2019 Iron [Mass/Vol] 73 ug/dL 37 - 145 ug/dL [place] Lipid Panelon 10-07-2019 Cholesterol [Mass/Vol] 229 mg/dL High <200 [place] Comment on above: Cholesterol Guidelines: <200 Desirable 200-240 Borderline >240 Undesirable Cholesterol in HDL [Mass/Vol] 67 mg/dL >40 [place] Comment on above: HDL Guidelines: <40 Undesirable 40-59 Borderline >59 Desirable Cholesterol in LDL [Mass/Vol] 127 mg/dL 0 - 130 mg/dL [place] Comment on above: LDL Guidelines: <100 Desirable 100-129 Near to/above Desirable 130-159 Borderline >159 Undesirable Direct (measured) LDL and calculated LDL are not interchangeable tests. Cholesterol in VLDL [Mass/Vol] NOT REPORTED High 1 - 30 mg/dL [place] Cholesterol.total/Cho lesterol in HDL [Mass ratio] 3.4 {ratio} <5 [place] Triglyceride [Mass/Vol] 175 mg/dL High <150 [place] Comment on above: Triglyceride Guidelines: <150 Desirable 150-199 Borderline 200-499 High >499 Very high Based on AHA Guidelines for fasting triglyceride, December 2011. Lipid Profileon 10-07-2019 Cholesterol [Mass/Vol] 229 mg/dL High <200 [facility] Comment on above: Result Comment: Cholesterol Guidelines: <200 Desirable 200-240 Borderline >240 Undesirable Performed By: #### F TI, FE #### [facility] [address] [place], [place] [id number] [employer] Officer: Otoniel Ash MD #### TSH, LIPR, CP, GLYHGB, CDP #### [address] [place] [address] [employer] Officer: Elisabeth Worthy MD Cholesterol in HDL [Mass/Vol] 67 mg/dL Normal >40 [facility] Comment on above: Result Comment: HDL Guidelines: <40 Undesirable 40-59 Borderline >59 Desirable Performed By: #### F TI, FE #### [address] [address] [employer] Officer: Otoniel Ash MD #### TSH, LIPR, CP, GLYHGB, CDP #### [address] [place] [address] [employer] Officer: Elisabeth Worthy MD Cholesterol in LDL [Mass/Vol] 127 mg/dL Normal 0-130 [facility] Comment on above: Result Comment: LDL Guidelines: <100 Desirable 100-129 Near to/above Desirable 130-159 Borderline >159 Undesirable Direct (measured) LDL and calculated LDL are not interchangeable tests. Performed By: #### F TI, FE #### [address] [address] [employer] Officer: Otoniel Ash MD #### TSH, LIPR, CP, GLYHGB, CDP #### [address] [place] [address] [employer] Officer: Elisabeth Worthy MD Cholesterol.total/Cho lesterol in HDL [Mass ratio] 3.4 {ratio} Normal <5 [facility] Comment on above: Performed By: #### F TI, FE #### [address] [address] [employer] Officer: Otoniel Ash MD #### TSH, LIPR, CP, GLYHGB, CDP #### [address] [place] [address] [employer]/Anti [employer] War[employer] Officer: Elisabeth Worthy MD Triglyceride [Mass/Vol] 175 mg/dL High <150 [facility] Comment on above: Result Comment: Triglyceride Guidelines: <150 Desirable 150-199 Borderline 200-499 High >499 Very high Based on AHA Guidelines for fasting triglyceride, December 2011. Performed By: #### F TI, FE #### [facility] [address] [place], [place] 1984908 [employer] Officer: Otoniel Ash MD #### TSH, LIPR, CP, GLYHGB, CDP #### [facility] [address] [place] [address] [employer] Officer: Elisabeth Worthy MD Cholesterol in VLDL [Mass/Vol] NOT REPORTED Normal 04-16 [facility] Comment on above: Performed By: #### F TI, FE #### [facility] [address] [place], [place] [id number] [employer] Officer: Otoniel Ash MD #### TSH, LIPR, CP, GLYHGB, CDP #### [facility] [address] [place] [address] [employer] Officer: Elisabeth Worthy MD Metabolic Panelon 10-07-2019 GFR/1.73 sq M predicted among non-blacks MDRD (S/P/Bld) [Vol rate/Area] [place], [place] Comment on above: Stage 1: Some [...] body mass. Additional eGFR calculator available at: http://www.[employer]/multiple_crcl_2012.htm Otheron 10-07-2019 Interpretation and review of laboratory results Abnormal [place] TSH without Reflexon 020 TSH Qn 1.12 m[IU]/L [place] Thyroid Stim. Horm.on 2019 TSH Qn 1.12 m[IU]/L Normal 0.30-5.00 [facility] Comment on above: Performed By: #### F TI, FE #### [facility] [address] [place] [address] [employer] Officer: Otoniel Ash MD #### TSH, LIPR, CP, GLYHGB, CDP #### [facility] [address] [place] [address] [employer] Officer: Elisabeth Worthy MD Operative Reporton 8 Operative Report MR#: [id number] [facility] Pt. Name: Xena Ewing Room #: 0C Discharge Date: Birthdate: 1955 OPERATIVE REPORTDATE OF SURGERY: 03/17/2018SURGEON: Bart Holcomb M.D.FACILITY MAINTENANCE MECHANIC: Carlton Galicia M.D.PREOPERATIVE DIAGNOSIS: Right recurrent de [...] Dict: 03/17/2018/10:00 Finn/Chad Andino Trans: 03/17/2018 11:55 A/Marissa_JN:[id number]: Anamika Valle M.D. [facility] [address] [facility] [place] [address] Normal [facility] POC GLUCOSE LABon 03-17-2018 Glucose mass conc 89 mg/dL Normal 70-100 [facility] Comment on above: Performed By: #### 8 [id number] ####[facility] [place], [place] [id number] [place] [address] Vital Signs Date Time Vital Sign Value Performing Clinician Facility 04-09-2024 10:48-0500 Body height 165.1 cm Semaj Sanchez DPM Work Phone: [facility] 04-09-2024 10:48-0500 Body mass index (BMI) [Ratio] 21.47 kg/m2 Semaj Sanchez DPM Work Phone: [facility] 04-09-2024 10:48-0500 Body weight 58.51 kg Semaj Sanchez DPM Work Phone: [facility] 04-09-2024 10:48-0500 Respiratory rate 18 /min Semaj Sanchez DPM Work Phone: [facility] 03-19-2024 15:44-0500 Body height 165.1 cm Semaj Sanchez DPM Work Phone: [facility] 03-19-2024 15:44-0500 Body mass index (BMI) [Ratio] 21.47 kg/m2 Semaj Sanchez DPM Work Phone: [facility] 03-19-2024 15:44-0500 Body weight 58.51 kg Semaj Sanchez DPM Work Phone: [facility] 03-19-2024 15:44-0500 Respiratory rate 18 /min Semaj Sanchez DPM Work Phone: [facility] 02-05-2024 14:03-0500 Blood Pressure Location Rubén NILL [facility] 02-05-2024 14:03-0500 Diastolic blood pressure 84 mm[Hg] Rubén NILL [facility] 02-05-2024 14:03-0500 Heart rate 72 /min Rubén NILL [facility] 02-05-2024 14:03-0500 Respiratory rate 16 /min Rubén NILL [facility] 02-05-2024 14:03-0500 Systolic blood pressure 132 mm[Hg] Rubén MANUEL [facility] [place] 10-23-2022 11:13-0400 Body height 165.1 cm Claire Morales MD Work Phone: [facility] 10-23-2022 11:13-0400 Body weight 73.07 kg Claire Morales MD Work Phone: [facility] 10-23-2022 11:13-0400 Diastolic blood pressure 71 mm[Hg] Claire Morales MD Work Phone: [facility] 10-23-2022 11:130400 Heart rate 77 /min Claire Morales MD Work Phone: [facility] 10-23-2022 11:13-0400 Systolic blood pressure 125 mm[Hg] Claire Morales MD Work Phone: [facility] Encounters Encounter Date Encounter Type Care Provider Facility Start: 04-09-2024 End: 04-09-2024 Bamboo flowsheet Semaj Sanchez DPM Work Phone: [facility] Start: 04-09-2024 End: 04-09-2024 Bamboo flowsheet Semaj Sanchez DPM Work Phone: [facility] Start: 04-09-2024 End: 04-09-2024 Patient encounter procedure Semaj Sanchez DPM Work Phone: [facility] Comment on above: Verruca plantaris (P rimary Dx); Foot pain, right; Foot pain, left Start: 04-09-2024 End: 04-09-2024 ambulatory SEMAJ SANCHEZ Not Available Start: 03-19-2024 End: 03-19-2024 Office outpatient visit 15 minutes Semja Sanchez DPM Work Phone: [facility] Comment on above: Neoplasm of [...] Start: 02-06-2024 End: 02-06-2024 ambulatory GEORGES BURNS Facility[facility] Start: 02-06-2024 End: 02-06-[address] GEORGES BURNS [facility] Start: 02-05-2024 End: 02-05-2024 ambulatory Rubén MANUEL Facility:[facility] Start: 02-05-2024 End: 02-05-2024 Patient encounter procedure Rubén MANUEL [facility] Start: 12-27-2023 End: 12-27-2023 Patient encounter procedure MD Anamika Valle Work Phone: [facility] Work Phone: Start: 12-27-2023 End: 12-27-2023 ambulatory MD Aanmika Valle Work Phone: [facility] Work Phone: Start: 12-17-2023 End: 12-17-2023 Bamboo flowsheet Shirin Escobar CHILDREN'S CHOIR DIRECTOR-GENETICS NURSE Work Phone: [facility] Start: 12-17-2023 End: 12-17-2023 Bamboo flowsheet Shirincheryl Durbiner CHILDREN'S CHOIR DIRECTOR-GENETICS NURSE Work Phone: [facility] Start: 12-17-2023 End: 12-17-2023 Office outpatient new 20 minutes Shirin Escobar CHILDREN'S CHOIR DIRECTOR-GENETICS NURSE Work Phone: [facility] Comment on above: Other nonthrombocyto penic purpura (CMS/HCC) (Primary Dx); Actinic keratosis Start: 12-17-2023 End: 12-17-2023 ambulatory SHIRIN ESCOBAR Not Available Start: 07-31-2023 End: 07-31-2023 ambulatory MONIE Harrington LIEBENTHAL Not Available Start: 07-03-2023 End: 07-03-2023 ambulatory MONIE S LIEBENTHAL Not Available Start: 05-29-2023 End: 05-29-2023 ambulatory SEVERO CURRY Not Available Start: 05-09-2023 End: 05-09-2023 ambulatory MONIE Harrington L[place] Not Available Start: 12-24-2022 End: 12-24-2022 ambulatory MD Anamika Valle Work Phone: [facility] Work Phone: Start: 12-24-2022 End: 12-24-2022 Patient encounter procedure MD Anamika Valle Work Phone: [facility] Work Phone: Start: 10-23-2022 End: 10-24-2022 ambulatory ANAMIKA VALLE Facility:[facility] Start: 10-23-2022 End: 10-23-2022 Patient encounter procedure Claire Morales MD Work Phone: General Surgery Comment on above: Ventral hernia witho ut obstruction or gangrene (Primary Dx) Start: 04-19-2022 End: 04-19-2022 ambulatory DESTINI DOOLEY Facility:[facility] Start: 01-05-2022 End: 01-06-[address] ANAMIKA VALLE Facility:[facility] Start: 12-21-2021 End: 12-21-2021 ambulatory MD Anamika Valle Work Phone: [facility] Work Phone: Start: 12-21-2021 End: 12-21-2021 Patient encounter procedure MD Anamika Valle [facility] Start: 11-09-2021 End: [...] Subsequent hospital visit by physician Anamika Valle [facility] Start: 10-07-2019 End: 10-08-2019 Patient encounter procedure [facility] Start: 10-07-2019 End: 10-07-2019 Subsequent hospital visit by physician [facility] Drawing Room [facility] Comment on above: Arrived Start: 03-17-2018 End: 03-18-2018 Patient encounter procedure GIOVANI HOLCOMB Facility:[facility] Start: 02-14-2018 End: 02-15-2018 Patient encounter procedure DEFAULT PHYSICIAN Facility:[facility] Procedures Date Procedure Procedure Detail Performing Clinician Start: 12-27-2023 Screening mammograph y of bilateral breasts MD Anamika Valle Work Phone: Start: 12-17-2023 CRYOTHERAPY SKIN LESION Shirin Escobar CHILDREN'S CHOIR DIRECTORTranslateMedia Work Phone: Start: 12-24-2022 Screening mammograph y of bilateral breasts MD Anamika Valle Work Phone: Start: 04-19-2022 Mammography Shirin alvarez CHILDREN'S CHOIR DIRECTORTranslateMedia Work Phone: Start: 12-21-2021 Screening mammograph y [...] horm uptk/th yroid hormone binding ratio Anamika Moyay Work Phone: Start: 03-17-2018 ANESTH LOWER ARM SURGERY BOUCHRA HARPER Start: 03-17-2018 INCISION OF TENDON SHEATH ABDULAZIM JI Appendectomy Rubén ACEVEDOL Colonoscopy Rubén CURTISL Decompression of med vernon nerve Rubén CURTISL Re-release of carpal tunnel Rubén ACEVEDOL Total abdominal hysterectomy with bilateral salpingo-oophorectomy Rubén ACEVEDOL Plan of Treatment Date Care Activity Detail Author Start: 06-01-2028 DTaP/Tdap/Td vaccine (2 - Td) DTa[facility]Tdap[facility] Start: 10-06-2024 Lipid panel Lipid screen [place], [place] Start: 06-01-2024 End: 06-01-2024 Patient encounter procedure 06/01/2024 11:00 AM EDT Office Visit [facility] [address] [place] [phone] Severo Curry DO [address] [place] [address] [facility] Start: 05-28-2024 End: 05-28-2024 Patient encounter procedure 05/28/2024 11:00 AM EDT Procedure Visit [facility] [address] [email or web address] [address] [place] [address] Semaj Sanchez DPM [address] [address] [facility] Start: 04-09-2024 End: 04-09-2024 Patient encounter procedure 04/09/2024 11:00 AM EST Office Visit [facility] [address] [address] Semaj Sanchez DPM [address] [address] Verruca plantaris (Primary Dx); Foot pain, right; Foot pain, left [facility] Comment on above: Verruca plantaris (P rimary Dx); Foot pain, right; Foot pain, left Start: 03-19-2024 End: 03-19-2024 Patient encounter procedure 03/19/2024 3:50 PM EST Office Visit [facility] [address] [facility] [address] [place] [address] Semaj Sanchez DPM [address] [id number] [facility] Start: 12-17-2023 End: 12-17-2023 Patient encounter procedure 12/17/2023 11:05 AM EDT Office Visit [facility] [address] [place] [phone] Shirin Escobar, CHILDREN'S CHOIR DIRECTOR-GENETICS NURSE [address] [place] [address] Arrived [facility] Comment on above: Arrived Start: 11-17-2023 Influenza vaccination Influenza Vacc ine (#1) [facility] Start: 04-19-2023 Screening for malign ant neoplasm of breast Mammogram [facility] Start: 11-16-2022 Influenza vaccination INFLUENZA (#1) [facility] Start: 04-21-2022 COVID-19 VACCINE (5 - Pfizer series) COVID-19 VACCINE (5 - Pfizer series) [facility] Start: 03-18-2022 ADVANCE DIRECTIVE DISCUSSION ADVANCE DIRECTIVE DISCUSSION [facility] Start: 03-18-2022 DEPRESSION ASSESSMENT DEPRESSION ASS ESSMENT [facility] Start: 2021 BONE DENSITY BONE DENSITY [facility] Start: 2021 Pneumococcal Vaccine : 65+ Years (2 of 2 - PCV) Pneumococcal Vaccine: 65+ Years (2 of 2 - PCV) [facility] Start: 11-17-2019 Influenza vaccination Flu vaccine (# 1) [place], [place] Start: 2006 Influenza vaccination LUNG CANCER SC REENING [facility] Start: 2006 Screening for malign ant neoplasm of breast Breast cancer screen [place], [place] Start: 2006 Screening for malign ant neoplasm of colon Colon cancer screen colonoscopy [place], [place] Start: 2006 Shingles Vaccine (1 of 2) Shingles Vaccine (1 of 2) [place] Start: 2006 SHINGRIX VACCINE (1 of 2) SHINGRIX VACCINE (1 of 2) [facility] Start: 2001 COLOGUARD (FIT-DNA) COLOGUARD (FIT-D NA) [facility] Start: 2001 Colonoscopy COLONOSCOPY [facility] Start: 2001 COLORECTAL CANCER SCREENING COLORECTAL CANCER SCREENING [facility] Start: [address] COLONOGRAPHY [facility] Start: 2001 DIABETES SCREEN DIABETES SCREEN [facility] Start: 2001 FECAL OCCULT BLOOD FECAL OCCULT BLOO D [facility] Start: 2001 LIPID SCREEN LIPID SCREEN [facility] Start: 2001 SIGMOIDOSCOPY SIGMOIDOSCOPY [facility] Start: 1996 Lipid panel Lipid screen [place], [place] Start: 1996 Mammography MAMMOGRAM [facility] Start: 1977 Screening for malign ant neoplasm of cervix Cervical cancer screen [place], [place] Start: 12-12-1975 Urine microalbumin profile DTAP,TDAP,TD (1 - Tdap) [facility] Start: 1974 HEPATITIS C SCREENING [facility]IT[facility] Start: 1974 HIV SCREENING HIV SCREENING [facility] Start: 12-12-1971 HIV screening HIV screen [place], [place] Start: 1962 PNEUMOCOCCAL: 65+ (1 - PCV) PNEUMOCOCCAL: 65+ (1 - PCV) [facility] Start: 1956 Hepatitis C screening Hepatitis C ct erikzane [place], [place] Start: 1956 Screening for malign ant neoplasm of colon [facility] Immunizations Immunization Date Immunization Notes Care Provider Angie sandoval 12-19-2021 SARS-CoV-2 (COVID-19 ) [id number] Rubén MANUEL [facility] 04-04-2021 SARS-CoV-2 (COVID-19 ) mRNA BNT-162b2 vax Rubén ACEVEDOL [facility] 12-16-2020 SARS-CoV-2 (COVID-19 ) mRNA BNT-162b2 vax Rubén ACEVEDOL [facility] 11-28-2020 SARS-CoV-2 (COVID-19 ) mRNA BNT-162b2 vax Rubén ACEVEDOL [facility] [place] 06-05-2018 influenza virus vaccine, unspecified formulation Shirin Escobar CHILDREN'S CHOIR DIRECTOR-GENETICS NURSE Work Phone: [facility] 06-01-2018 tetanus toxoid, redu tu diphtheria toxoid, and acellular pertussis vaccine, adsorbed [facility] [place] Payers Date Payer Category Payer Self-pay [id number] 2023 Medicare (Managed Care) [employer] [id number] 2023 Medicare [id number] 2022 Medicare [id number] 2019 Unknown [id number] 2019 Unknown [employer] - EXCHANGE [id number] 2019-Present [phone] [address] [place] [address] [id number]. [id number] 1959 Medicare [id number] 1959 Medicare [id number] 1959 Private Health Insurance [id number] 1956 Unknown [id number] 2.16.840.1.822088.3.579.2. 647 1956 Unknown [id number] 2.16.840.1.182879.3.579.2. 647 1956 Unknown [id number] 2.16.840.1.586863.3.579.2. 173 1956 Unknown [id number] 2.16.840.1.519182.3.579.2. 173 1956 Unknown [id number] 2.16.840.1.162486.3.579.2. 593 1956 Unknown [id number] 2.16.840.1.440315.3.579.2. 593 1956 Unknown [id number] 2.16.840.1.587728.3.579.2. 593 1956 Unknown [id number] 2.16.840.1.163722.3.579.2. 593 1956 Unknown [id number] 2.16.840.1.596352.3.579.2. 593 1956 Unknown [id number] 2.16.840.1.127838.3.579.2. 593 1956 Unknown [id number] 2.16.840.1.085949.3.579.2. 593 1956 Unknown [id number] 2.16.840.1.086610.3.579.2. 727 1956 Unknown [id number] 2.16.840.1.170010.3.579.2. 727 1956 Unknown [id number] 2.16.840.1.818154.3.579.2. 1259 1956 Unknown [id number] 2.16.840.1.156599.3.579.2. 1259 1956 Unknown [id number] 2.16.840.1.165021.3.579.2. 1259 1956 Unknown [id number] 2.16.840.1.022842.3.579.2. 1259 1956 Unknown [id number] 2.16.840.1.983209.3.579.2. 1259 1956 Unknown [id number] 2.16.840.1.843126.3.579.2. 1259 1956 Unknown [id number] 2.16.840.1.887270.3.579.2. 1259 Medicare Medicare [id number] Unknown [id number] Unknown Unknown HCAP/HFA/FAP Active [id number] Unknown [id number] 2..840.1.619647.3.579.2. 531 Social History Date Type Detail Facility Start: 05-31-2018 End: 02-05-2024 Tobacco smoking status NHIS Former smoker [facility] Start: 05-31-2018 Alcohol intake Ex-drinker (finding) [place], [place] Start: 1955 Sex Assigned At Not on file [place] Exposure to SARS-CoV -2 (event) Not sure [place], [place] Start: 1955 Sex Assigned At Female F [facility] Start: 10-23-2022 Tobacco smoking stat us [facility] Smokes tobacco daily [facility] History of tobacco use Cigarette Smoker C [facility] Start: 10-23-2022 End: 03-19-2024 Cigarettes smoked current (pack per day) - Reported 1 [facility] Start: 10-23-2022 End: 03-19-2024 Tobacco use and exposure User of smokeless tobacco [facility] Start: 10-23-2022 End: 03-19-2024 Alcohol intake Lifetime non-drinker (finding) [facility] Start: 10-23-2022 End: 03-19-2024 Tobacco use panel [facility] Start: 10-23-2022 Tobacco Comment [facility] Start: 09-21-2022 End: 03-19-2024 Tobacco smoking status NHIS Never smoked tobacco [facility] Start: 04-27-2023 Alcohol Comment Caffine intake : 2-3 cups per day, coffee; tea [facility] Functional Status Date Assessment Result Facility 02-05-2024 Functional Status N/A [facility] [place] Clinical Notes 08-31-2021 to 04-09-2024 Semaj Sanchez, TOMER - 04/09/2024 11:00 AM Thien Sanchez, COREY - 03/19/2024 3:50 PM Mily Escobar APRN-ARTURO - 12/17/2023 11:05 AM LEAHTFClaire carrera MD - 10/23/2022 11:34 AM EDT Note Date & Type Note Facility 04-09-2024 History of Present illness Narrative Patient: Xena Ewing : 1955 PCP: Anamika Valle MD SUBJECTIVE Patient presents today for follow up of skin lesion/neoplasm of unknown origin to the left and right foot Pt states that previous treatment of acid tx with some improvement Pt rates pain the pain on a 1-10 scale an intensity of 4 Pt presents today for followup. Allergies: Allergies Allergen Reactions Codeine Nausea Only [...] 5th metatarsal region of 0.2 cm x 0.1 cm measuring VASC: Positive palpable pedal pulses bilaterally NEURO: Gross sensation intact to bilateral feet ORTHO: Positive pain on palpation to nails 1 through 10 Positive pain on palpation to bilateral foot lesions ASSESSMENT 1. Verruca plantaris 2. Foot pain, right 3. Foot pain, left PLAN Application of salinocaine acid medication to lesion/lesions [...] DPM documented in this encounter [facility] 03-19-2024 History of Present illness Narrative Patient: [...] pathological diagnosis of specimen. Patient may take [id number] NSAID p.r.n. for pain Application of salinocaine [...] DPM documented in this encounter [facility] 02-06-2024 Evaluation + Plan note Diagnostic Tests Pendingvon Willebrand Factor (vWF) Ag 02/06/24Lupus Anticoagulant 02/06/24vWF Activity 02/06/24 [facility] 02-05-2024 Note General Surgery Offi ce/Clinic [...] Father. Immunizations Vaccine Date Status SARS-CoV-2 (COVID-19) [id number] 12/19/2021 Recorded SARS-CoV-2 ( (more content not included)... [facility] Comment on above: Result Comment: Elec tronically [...] limited to risks of scarring, darker or yarn worker pigmentary changes, recurrence, incomplete removal and infection. [...] lesions documented in this encounter [facility] 10-23-2022 Note HNO ID: [id number] Author: Claire Morales MD Service: ? Author [...] Surgery cc: Referring provider Anamika Valle [address] [facility] [address] Medical Decision Making: Problems: Low: Stable chronic illness Data: Independent interpretation of test from other physician/QHCP Medical Decision Making Level: 3 - Low [facility] 10-23-2022 History of Present illness Narrative [...] cc: Referring provider Anamika Valle [address] [facility] [address] Medical Decision Making: Problems: Low: Stable chronic illness Data: Independent interpretation of test from other physician/QHCP Medical Decision Making Level: 3 - Low documented in this encounter [facility] 08-31-2021 Note OPERATIVE NOTE OPERATION DATE: 08/31/2021 PREOPERATIVE DIAGNOSIS: Acute appendicitis. POSTOPERATIVE DIAGNOSIS: Acute appendicitis. PROCEDURE PERFORMED: Laparoscopic appendectomy. SURGEON: Elisabeth Rehman M.D. FACILITY MAINTENANCE MECHANIC: PINA Corona ANESTHESIA: General, 0.5% Marcaine for [...] taken to the PACU in fair condition. [facility] Signed and Approved by: DR ELISABETH REHMAN . 09/15/2021 06:33:00 [facility] Evaluation + Plan note No data available for this section [facility] [place] Evaluation note No assessment inform ation available [facility] Work Phone: Evaluation note Diagnosis Ventral hernia without obstruction or gangrene- Primary Ventral hernia, unspecified, without mention of obstruction or gangrene [facility] Other nonthrombocytopenic purpura (CMS/HCC)- Primary Actinic keratosis documented in this encounter [facility] Healthcare[facility] note* Diagnosis Neoplasm of uncertain behavior of skin- Primary Verruca plantaris Plantar wart Foot pain, right Pain in soft tissues of limb Foot pain, left Pain in soft tissues of limb Pain due to onychomycosis of toenails of both feet [facility] Diagnosis Verruca plantaris- Primary Plantar wart Foot pain, right Pain in soft tissues of limb Foot pain, left Pain in soft tissues of limb [facility] Discharge instructions No data available for this section [facility] [place] Progress note No data available for this section [facility] [place] Summary Purpose Family History No Family History [...] FoundDocuments on File Type Date Recorded 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 Advance Directives and Living Will Power of Reception Interviewer Advance Directive Response Recorded Date/ Time Advance Directives No June 06 018 3:52pm Chief Complaint and Reason for Visit Chief Complaint Screening Additional Source Comments INFORMATION SOURCE (unrecogn ized section and content) DATE CREATED AUTHOR 03/21/2018 [facility] DATE CREATED AUTHOR AUTHOR'S ORGANIZ ATION 10/14/2019 [facility] DATE CREATED AUTHOR AUTHOR'S ORGANIZ ATION 04/27/2022 [facility] DATE CREATED AUTHOR AUTHOR'S ORGANIZ ATION 10/27/2022 [facility] DATE CREATED AUTHOR AUTHOR'S ORGANIZ ATION 01/03/2024 [facility] DATE CREATED AUTHOR AUTHOR'S ORGANIZ ATION 02/08/2024 [facility] DATE CREATED AUTHOR AUTHOR'S ORGANIZ ATION 02/13/2024 [facility] DATE CREATED AUTHOR AUTHOR'S ORGANIZ ATION 03/29/2024 [facility] DATE CREATED AUTHOR AUTHOR'S ORGANIZ ATION 04/11/2024 [facility] Special[facility] EPIC Care Teams (unrecognized sec tion and content) Team Status: Active Member Role Status Dates Anamika Valle MD Primary Care Provider Active Team Status: Inactive Member Role Status Dates Anamika Valle MD Primary Care Provider Active Referral Self Attending Provider Active 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 Relationship Specialty Start Date End Date Anamika Valle MD PCP - General 10/24/04 Anamika Valle MD [address] [place] [facility] [place] [address] Referring Family Medicine 10/05/22 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 Relationship Specialty Start Date End Date Anamika Valle MD [address] [facility] [place] [address] PCP - General Family Medicine 09/21/22 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 Relationship Specialty Start Date End Date Anamika Valle MD [address] [facility] [place] [address] PCP - General Family Medicine 09/21/22 Team Status: Inactive Member Role Status Dates Anamika Valle MD Primary Care Provide r, Referring Provider Active Start: December 27, 2023 End: December 27, 2023 Referral Self Attending Provider Active Start: O wy2023 End: December 27, 2023 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 Relationship Specialty Start Date End Date Anamika Valle MD [address] [facility] [place] [address] PCP - General Family Medicine 09/21/22 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 Relationship Specialty Start Date End Date Anamika Valle MD [address] [facility] [address] PCP - General Family Medicine 09/21/22 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 [employer] provides no warranty or guarantee of the accuracy or completeness of information in this document.
[2024-04-15 06:48] VITALS: BP 128/82; PULSE 90; TEMP 36.2; O2SAT 99; BMI 21.8
[2024-04-15] MEDS: 0.9 % SODIUM CHLORIDE 500 ML 50 ML IV (06:57)
[2024-04-15 07:48] VITALS: BP 117/69; PULSE 74; O2SAT 98
[2024-04-15 08:03] VITALS: BP 145/83; PULSE 83; O2SAT 98
== END 2024-04-15 08:22 | disposition home or self-care (01) ==
PROVIDERS: PCP Family Medicine; Visit Provider Surgery
PROC: (CPT 45378; principal; 2024-04-15 07:30)
DX: R19.5 Other fecal abnormalities (principal); K57.30 Diverticulosis of large intestine without perforation or abscess without bleeding; Z90.710 Acquired absence of both cervix and uterus; F17.290 Nicotine dependence, other tobacco product, uncomplicated; K21.9 Gastro-esophageal reflux disease without esophagitis; I73.00 Raynaud's syndrome without gangrene; E04.2 Nontoxic multinodular goiter
CPT/HCPCS: 45378; J2704

== ENCOUNTER 2024-06-01 14:46 | Outpatient (REF) | payer MEDICARE, SELFPAY ==
--- OUTSIDE RECORDS SUMMARY | 2024-06-01 15:08 | XMS_ITS | CCD ---
Author Organization [facility] Care Team Providers Care Manuscript Editor Name Role Phone PHYSICIAN, DEFAULT Unavailable Unavailable PHYSICIAN, DEFAULT Unavailable Unavailable JANINE VALLELAS Unavailable Unavailable JI, ABDULAZIM Unavailable Unavailable JI, ABDULAZIM Unavailable Unavailable JANINE VALLELAS Unavailable Unavailable ANAMIKA VALLE Unavailable Unavailable [place] Unavailable Unavailable JI, ABDULAZIM Unavailable Unavailable [place] Unavailable Unavailable BOUCHRA HARPER Unavailable Unavailable ANAMIKA VALLE Referring Unavailable ANAMIKA VALLE Primary Care Unavailable ANAMIKA VALLE Referring Unavailable ANAMIKA VALLE Primary Care Unavailable Anamika Valle Primary Care Provider MD Anamika Valle Primary Care Provider [phone] Self, Referral Attending Provider Unavailable DR [...] LEWIS Consulting Unavailable DANNA HERNANDES Consulting Unavailable MAKAYLA, DR WILLSON Admitting Unavailable MAKAYLA, DR WLILSON Attending Unavailable MAKAYLA, DR WILLSON Primary Care [...] GEORGES Admitting Unavailable Rubén MANUEL Attending Unavailable SEMAJ SANCHEZ Attending Unavailable SEMAJ SANCHEZ Attending Unavailable MONIE NAVARRO Attending Unavailable MONIE NAVARRO Attending Unavailable SHIRIN ESCOBAR Attending Unavailable SEMAJ SANCHEZ Attending Unavailable Allergies Allergy Classification Reported Allergen(s) Allergy Type Date of Onset Reaction(s) Facility (20 sources) Codeine; Translations: [CODEINE] Drug Allergy 11-30-19 05 Nausea Only, Gastrointestinal irritation (disorder) [facility] Repository (1 source) Etodolac Drug Allergy 03-21-19 17 [facility] Repository (1 source) no latex allergy [Other] Propensity to adverse reactions 11-30-19 05 [facility] (15 sources) OTHER; Translations: [OTHER] Propensity to adverse reactions (disorder) 11-30-19 05 [facility] Repository (14 sources) Etodolac Allergy to substance 09-22-19 23 [facility] (14 sources) Sulfonamides (Antibiotic) Drug Allergy 07-14-19 22 Hives [facility] (1 source) Unable to Assess Drug allergy (disorder) 10-07-19 19 [facility] Repository (6 sources) Ciprofloxacin; Translations: [ciprofloxacin] Drug Allergy 06-02-19 25 Patient reported problems (finding) [facility] Medications Current Medications Medication Drug Class(es) Dates Sig (Normalized) Sig (Original) amitriptyline hydrochloride 50 mg oral tablet (17 sources) Tricyclic Antidepressant Start: 09-20-2022 End: 06-01-2024 amitriptyline (Elavil) 50 MG tablet 09/20/2022 06/01/2024 Discontinued (Other) Comment on above: Take 50 mg by [...] Active cyclobenzaprine hydrochloride 10 mg oral tablet (15 sources) Muscle Relaxant Start: 09-14-2022 take 1 [...] daily. doxepin hydrochloride 10 mg oral capsule (17 sources) Tricyclic Antidepressant Start: 08-21-2022 take 1 capsule by mouth at bedtime as needed doxepin (SINEquan) 10 MG capsule TAKE 1 TO 2 CAPSULES BY MOUTH AT BEDTIME NEEDED FOR ANXIETY 08/21/2022 Active Comment on above: TAKE 1 TO 2 CAPSULES BY MOUTH AT BEDTIME NEEDED FOR ANXIETY famotidine 40 mg oral tablet (17 sources) Histamine-2 Receptor Antagonist Start: 09-14-2022 take [...] Status: Ordered meloxicam 7.5 mg oral tablet (15 sources) Nonsteroidal Anti-inflammatory Drug Start: 10-17-2022 meloxicam [...] pantoprazole 40 mg delayed release oral tablet (17 sources) Proton Pump Inhibitor Start: 07-15-2022 take 1 tablet by mouth in the morning pantoprazole (ProtoNix) 40 MG EC tablet Take 40 mg by mouth in the morning. 07/15/2022 Active Comment on above: Take 1 tablet by diego th every afternoon. sucralfate 1000 mg oral tablet (15 sources) Aluminum Complex Start: 09-14-2022 take 1 [...] EMPTY STOMACH) tiZANidine 4 mg oral tablet (16 sources) Central alpha-2 Adrenergic Agonist Start: 01-21-2023 [...] diego th every 12 hours. estrogens, conjugated (alf) 0.625 mg oral tablet (1 source) Estrogen [...] SCREENING HUMAN PAPILLOMAVIRUS] Onset: 3 Episodic Mycoses (3 sources) Pain in toe; Translations: [Tinea unguium] [...] Onset: 8 Episodic Other connective tissue disease (5 sources) Pain in right foot; Translations: [Pain [...] conditions (not mental disorders or infectious disease) (7 sources) Encounter for screening for malignant neoplasm of cervix; Translations: [Encounter for screening mammogram for malignant neoplasm of breast] Onset: 3 Episodic Other skin disorders (2 sources) Actinic keratosis; Translations: [Actinic keratosis] 12-17-2023 Episodic Residual codes; unclassified (2 sources) Postmenopausal state; Translations: [Asymptomatic menopausal state] 06-01-2024 Episodic Screening and history of mental health [...] of lower extremity 01-27-2024 Episodic Viral infection (5 sources) Verruca plantaris; Translations: [Plantar wart] 03-19-2024 [...] Onset: 11-10-2021 Episodic Other connective tissue disease (19 sources) Pain in left foot; Translations: [Pain in left foot] Onset: 09-21-2022 09-21-2022 Episodic Results Test Name Value Interpretation Reference Range Facility Lab Miscellaneous-LCon 03-23 Lab Miscellaneous COMMENT Invalid Interpretation Code [facility] Comment on above: Result Comment: Test Ordered: [id number] von Willebrand Genes Result Comment MNEGA PDF report to be sent separately This test was developed and its performance characteristics determined by [employer]. It has not been cleared or approved by the Food and Drug Administration. Performed at: [address] [id number] PhD Alfred Hwang Performed By: #### 1 [id number] #### [facility] [address] [place] [id number] Lupus Anticoagon 02-10-2024 aPTT.lupus sensitive Coag (PPP) [Time] 29.4 second(s) Invalid Interpretation Code 0.0-43.[address] [facility] Comment on above: Performed By: #### 2 [id number] #### [facility] [address] [place] [address] dRVVT Coag (PPP) [Time] 32.8 second(s) Invalid Interpretation Code 0.0-47.[address] [facility] Comment on above: Performed By: #### 2 [id number] #### [facility] [address] [place] [address] Lupus anticoagulant two screening tests W Reflex Coag (PPP) [Interp] Comment: Invalid Interpretation Code [facility] Comment on above: Result Comment: No l upus anticoagulant was detected. Performed at: [address] [id number] MD Andrew Wilburn Performed By: #### 2 [id number] #### [facility] [address] [place] [address] vWF Activityon 02-10-2024 vWf ristocetin cofactor act actual/normal Platelet aggregation (PPP) [Relative time] 346 % High 50-200 [facility] Comment on above: Result Comment: Perf ormed at: [address] [id number] MD Andrew Wilburn Performed By: #### 2 [id number] #### [facility] [address] [place] [address] von Willebrand Factor (vWF) Agon 02-10-2024 vWf Ag actual/normal IA (PPP) [Relative mass conc] 368 % High 50-[address] [facility] Comment on above: Result Comment: VWF [...] developed and its performance characteristics determined by [employer]. It has not been cleared or approved by the Food and Drug Administration. Performed at: [address] [id number] MD Andrew Wilburn Performed By: #### 2 [id number] #### [facility] [address] [id number] COAGULATIONOrdered By: Jeffrey Nelson on 02-06-2024 Platelet function (closure time) collagen+EPINEPHrine induced (Bld) [Time] 96 s Normal 70 - 138 second(s) [facility] Comment on above: Interpretive Data: N ormal ASA vWD Glanzmann s Thrombasthenia ------- ------ ------- COL/EPI Normal Abnormal Abnormal Abnormal Col/ADP Normal Normal Abnormal Abnormal Lab Miscellaneous-LCon 02-05 Test Code 821034 Invalid Interpretation Code [facility] Comment on above: Performed By: #### 1 [id number] #### [facility] [address] [place] [address] Test Name von Willebrand Invalid Interpretation Code [facility] Comment on above: Performed By: #### 1 [id number] #### [facility] [address] [id number] Plt Function Assayon 024 Platelet function (closure time) collagen+EPINEPHrine induced (Bld) [Time] 96 second(s) Normal 70-138 [facility] Comment on above: Result Comment: Norm al ASA vWD Glanzmann???s Thrombasthenia ------- ------ ------- COL/EPI Normal Abnormal Abnormal Abnormal Col/ADP Normal Normal Abnormal Abnormal Performed By: #### 1 [id number] #### [facility] [address] [id number] Reference Laboratory Testing Ordered By: Paulette Frye on 02-06-2024 Test Code 887115 1 Invalid Interpretation Code [facility] Test Name von Willebrand Invalid Interpretation Code [facility] Ambulatory Visit Summaryon 1 04-06-2023 Ambulatory Visit [...] for choosing us for your care. Normal [facility] Provider Letteron 01-10-2024 Provider Letter Provider Letter January 10, 2024 [address] [place] [address] : 1955 Dear Irene Gildardo, We have been trying to reach you with no success regarding a referral from Dr Valle. It is important that you return our call upon receiving this letter. Also, at the time of your call, please provide us with your current information. Thank you for your prompt attention to this matter. Sincerely, [facility] General Surgery [phone] [facility] MM screening mammo BI w/CADo n 12-27-2023 MM screening mammo BI w/CAD [facility] [place] [address] Mammography Report Signed Patient: Xena Ewing MR#: [id number] : 1955 Acct:[id number] Age/Sex: 68 / F ADM Date: 12/27/23 Loc: [place] Room: Type: [facility] Attending Dr: Referral Self Copies to: [...] mammogram. Impression dictated by: Blake Schmidt Jr., DShikha12/27/2023 1:07 PM Dictation Location: [facility] Transcribed By: PWS 12/27/231306 Dictated By: Blake Schmidt Jr, DO 12/27/231303 Signed By: 12/27/23 130 Normal [facility] Panel Informationon 12-16 [facility] CNOV 10-23-2022 CNOV Office Visit (GENBMI ) XENA EWING ([id number]) 1955 [facility] Date Time Provider Department 10/23/22 11:30 [...] Surgery cc: Referring provider Anamika Valle [address] [facility] [phone] Medical Decision Making: Problems: Low: Stable chronic illness Data: Independent interpretation of test from other physician/QP Medical Decision Making Level: 3 - Low Referring Provider: ANAMIKA VALLE [[id number]] Allergies As of Date: 10/23/2022 Noted Allergy [...] ANXIETY - (more content not included)... Normal [facility] PAP ACOG PANEL 2: 30 to 65on 04-26-2022 . . Normal [facility] Comment on above: Result Comment: Perf ormed at: WB Performed By: #### 4 [id number] #### [facility] [address] [place] [address] Dr. Kayy Virgen Age Gdln ACOG Testing 30-[address] [facility] Comment on above: Performed By: #### 4 [id number] #### [facility] [address] [place] [address] Dr. Kayy Virgen DIAGNOSIS: Comment Normal [facility] Comment on above: Result Comment: UNSA TISFACTORY FOR EVALUATION. Performed at: WB Performed By: #### 4 [id number] #### [facility] [address] [address] [address] Kayy Virgen HPV Aptima Negative Normal Negative [facility] Comment on above: Result Comment: This nucleic acid amplification test detects fourteen high-risk HPV types (16,18,31,33,35,39,45,51,52,56,58,59,66,68) without differentiation. Performed at: =G Performed By: #### 4 [id number] #### [facility] [address] [place] [address] Dr. Kayy Virgen HPV Genotype Reflex Comment Normal [facility] Comment on above: Result Comment: Crit eria not met, HPV Genotype not performed. Performed at: WB Performed By: #### 4 [id number] #### [facility] [address] [place] [address] Dr. Kayy Virgen Methodology: Comment [facility] Comment on above: Result Comment: This liquid based ThinPrep(R) pap test was screened with the use of an image guided system. Performed at: WB Performed By: #### 4 [id number] #### [facility] [address] [place] [address] Dr. Kayy Virgen Note: Comment Normal [facility] Comment on above: Result Comment: The Pap smear is a screening test designed to aid in the detection of premalignant and malignant conditions of the uterine cervix. It is not a diagnostic procedure and should not be used as the sole means of detecting cervical cancer. Both false-positive and false-negative reports do occur. . Performed at: WB Performed By: #### 4 [id number] #### [facility] [address] [address] [address] Kayy Virgen Performed by: Comment Normal [facility] Comment on above: Result Comment: Arturo Peters, Inspection Machine Tender (ASCP) Performed at: [facility] Performed By: #### 4 [id number] #### [facility] [address] [address] [address] Kayy Virgen QC reviewed by: Comment Normal [facility] Comment on above: Result Comment: Pepe Cordova, Supervisory Inspection Machine Tender (ASCP) Performed at: WB Performed By: #### 4 [id number] #### [facility] [address] [address] [address] Kayy Virgen Recommendation: Comment Normal [facility] Comment on above: Result Comment: Sugg est follow up as clinically appropriate. Performed at: WB Performed By: #### 4 [id number] #### [facility] [address] [place] [address] Dr. Kayy Virgen Specimen adequacy: Comment Normal [facility] Comment on above: Result Comment: Spec imen processed and examined but unsatisfactory for evaluation of epithelial abnormality because of insufficient cellularity. Performed at: WB Performed By: #### 4 [id number] #### [facility] [address] [place] [address] Dr. Kayy Virgen US THYROIDon 01-05-2022 US [...] TR 4 nodule, previously biopsied TI-RADS: The [employer] TI-RADS committee's white paper recommendations for thyroid lesions classified as TR3 (mildly suspicious) are listed below: > 1.5 cm. Follow-up ultrasound in 1, 3, and 5 years. > 2.5 cm. FNA. JIrene Am Anais Radiol 2017;14:587-595. Electronically authenticated by: ENIO MOHAN Date: 2022-01-05 15:25 Normal [facility] T4, T3U, FTI LABCORPon 11-10 Free Thyroxine Index 2.0 Normal 1.2-4.9 [facility] Comment on above: Performed By: #### T HYLC ####[facility] [address] [place], [place] [address]Dr. Kayy Virgen T3 Uptake 26 % Normal 24-39 [facility] Comment on above: Performed By: #### T HYLC ####[facility] [address] [place], [place] [address]Dr. Kayy Virgen T4 [Mass/Vol] 7.5 ug/dL Normal 4.5-12.0 [facility] Comment on above: Performed By: #### T HYLC ####[facility] [address] [place], [place] [address]Dr. Kayy Virgen CBC AUTO DIFFon 11-09-2021 BASO # 0.1 103/ul Normal 0.0-0.1 [facility] Comment on above: Performed By: #### C BC ####[facility] [address] [place], [place] [address]Dr. Kayy Virgen Basophils/100 WBC (Bld) 2.1 % Critically high 0.2-2.0 [facility] Comment on above: Performed By: #### C BC ####[facility] [address] [place], [place] [address]Dr. Kayy Virgen EO # 0.2 103/ul Normal 0.0-0.7 [facility] Comment on above: Performed By: #### C BC ####[facility] [address] [place], [place] [address]Dr. Kayy Virgen Eosinophils/100 WBC (Bld) 5.1 % Normal 0.9-7.0 [facility] Comment on above: Performed By: #### C BC ####[facility] [address] [place], [place] [address]Dr. Kayy Virgen Erythrocyte distribution width (RBC) [Ratio] 14.6 % Normal 11.0-15.[address] [facility] Comment on above: Performed By: #### C BC ####[facility] [address] [address]Dr. Kayy Virgen Hematocrit (Bld) [Volume fraction] 38.5 % Normal 36.0-48.[address] [facility] Comment on above: Performed By: #### C BC ####[facility] [address] [place], [place] [address]Dr. Kayy Virgen Hemoglobin (Bld) [Mass/Vol] 12.4 g/dL Normal 12.0-16.[address] [facility] Comment on above: Performed By: #### C BC ####[facility] [address] [place], [place] [address]Dr. Kayy Virgen IG # 0.01 10e3/ul Normal 0.00-0.[address] [facility] Comment on above: Performed By: #### C BC ####[facility] [address] [place], [place] [address]Dr. Kayy Virgen IG % 0.2 % Normal 0.0-0.[address] [facility] Comment on above: Performed By: #### C BC ####[facility] [address] [place], [place] [address]DrIrene Kayy Virgen LYMPH # 1.5 103/ul Normal 1.2-3.[address] [facility] Comment on above: Performed By: #### C BC ####[facility] [address] [place], [place] [address]DrIrene Shereesamia Virgen Lymphocytes/100 WBC (Bld) 33.7 % Normal 20.5-60.0 [facility] Comment on above: Performed By: #### C BC ####[facility] [address] [place], [place] [address]Dr. Shereesamia Virgen MANUAL DIFF REQ NO Normal [facility] Comment on above: Performed By: #### C BC ####[facility] [address] [place], [place] [address]Dr. Shereesamia Virgen MCH (RBC) [Entitic mass] 26.7 pg Normal 26.7-34.[address] [facility] Comment on above: Performed By: #### C BC ####[facility] [address] [address]Dr. Kayy Virgen MCHC (RBC) [Mass/Vol] 32.2 g/dL Normal 29.9-35.[address] [facility] Comment on above: Performed By: #### C BC ####[facility] [address] [place], [place] [address]DrIrene Virgen MCV (RBC) [Entitic vol] 82.8 fL Normal 81.0-99.0 [facility] Comment on above: Performed By: #### C BC ####[facility] [address] [place], [place] [address]DrIrene Virgen MONO # 0.5 103/ul Normal 0.3-0.8 [facility] Comment on above: Performed By: #### C BC ####[facility] [address] [place], [place] [address]DrIrene Virgen Monocytes/100 WBC (Bld) 11.9 % Normal 1.7-12.0 [facility] Comment on above: Performed By: #### C BC ####[facility] [address] [place], [place] [address]DrIrene Virgen NEUT # 2.0 103/ul Normal 1.4-6.5 [facility] Comment on above: Performed By: #### C BC ####[facility] [address] [place], [place] [address]DrIrene Virgen Neutrophils/100 WBC (Bld) 47.0 % Normal 43.0-75.0 [facility] Comment on above: Performed By: #### C BC ####[facility] [address] [place], [place] [address]DrIrene Virgen Platelet mean volume (Bld) [Entitic vol] 9.7 fL Normal 9.5-13.5 [facility] Comment on above: Performed By: #### C BC ####[facility] [address] [place], [place] [address]DrIrene Virgen PLT 269 103/ul Normal 150-450 [facility] Comment on above: Performed By: #### C BC ####[facility] [address] [address]DrIrene Virgen RBC 4.65 106/ul Normal 4.20-5.[address] [facility] Comment on above: Performed By: #### C BC ####[facility] [address] [address]DrIrene Virgen WBC 4.3 103/ul Normal 4.0-11.[address] [facility] Comment on above: Performed By: #### C BC ####[facility] [address] [address]Dr. Kayy Virgen GLYCOHEMOGLOBIN A1Con 2021 ADA RECOMMENDATION SEE BELOW Normal [facility] Comment on above: Result Comment: ADA RECOMMENDED LIMIT 4.0 - 6.0 ADA THERAPEUTIC TARGET < 7.0 ACTION SUGGESTED > 7.0 Performed By: #### A 1C #### [facility] [address] [address] [address] Kayy Virgen Glucose [Mass/Vol] 117 mg/dL Normal [facility] Comment on above: Performed By: #### A 1C #### [facility] [address] [address] [address] Kayy Virgen HbA1c (Bld) [Mass fraction] 5.7 % Normal 4.5-6.[address] [facility] Comment on above: Performed By: #### A 1C #### [facility] [address] [address] [address] Kayy Virgen IRONon 11-09-2021 Iron [Mass/Vol] 100.0 ug/dL Normal 50.0-170.0 [facility] Comment on above: Performed By: #### I STEPHANI #### [facility] [address] [address] [address] Kayy Virgen PROF 14(COMP METB)on Albumin [Mass/Vol] 4.0 g/dL Normal 3.4-5.0 [facility] Comment on above: Performed By: #### C MP TSH #### [facility] [address] [address] [address] Kayy Virgen Albumin/Globulin [Mass ratio] 1.1 {ratio} Normal [facility] Comment on above: Performed By: #### C MP, TSH #### [facility] [address] [address] [address] Kayy Virgen ALP [Catalytic activity/Vol] 109 U/L Normal 46-[address] [facility] Comment on above: Performed By: #### C MP, TSH #### [facility] [address] [address] [address] Kayy Virgen ALT [Catalytic activity/Vol] 26 U/L Normal 14-[address] [facility] Comment on above: Performed By: #### C MP, TSH #### [facility] [address] [address] [address] Kayy Virgen Anion gap [Moles/Vol] 11.2 mmol/L Normal [facility] Comment on above: Performed By: #### C MP, TSH #### [facility] [address] [address] [address] Kayy Virgen AST [Catalytic activity/Vol] 58 U/L Critically high 15-[address] [facility] Comment on above: Performed By: #### C MP, TSH #### [facility] [address] [address] [address] Kayy Virgen Bilirubin [Mass/Vol] 0.4 mg/dL Normal 0.2-1.[address] [facility] Comment on above: Performed By: #### C MP, TSH #### [facility] [address] [address] [address] Kayy Virgen Calcium [Mass/Vol] 9.8 mg/dL Normal 8.5-10.1 [facility] Comment on above: Performed By: #### C MP, TSH #### [facility] [address] [address] [address] Kayy Virgen Chloride [Moles/Vol] 103 mmol/L Normal 98-[address] [facility] Comment on above: Performed By: #### C MP, TSH #### [facility] [address] [address] [address] Kayy Virgen CO2 [Moles/Vol] 28.2 mmol/L Normal 21.0-32.0 [facility] Comment on above: Performed By: #### C MP, TSH #### [facility] [address] [address] [address] Kayy Virgen Creatinine [Mass/Vol] 0.98 mg/dL Normal 0.55-1.02 [facility] Comment on above: Performed By: #### C MP, TSH #### [facility] [address] [address] [address] Kayy Virgen EGFR-AF RWANDAN >60 Normal >=60 [facility] Comment on above: Performed By: #### C MP, TSH #### [facility] [address] [address] [address] Kayy Virgen EGFR-NON AF RWANDAN 57 mL/min/1.73m2 Critically low >=60 [facility] Comment on above: Performed By: #### C MP, TSH #### [facility] [address] [address] [address] Kayy Virgen Globulin (S) [Mass/Vol] 3.8 g/dL Normal [facility] Comment on above: Performed By: #### C MP, TSH #### [facility] [address] [address] [address] Kayy Virgen Glucose [Mass/Vol] 102 mg/dL Normal 74-106 [facility] Comment on above: Performed By: #### C MP, TSH #### [facility] [address] [address] [address] Kayy Virgen Potassium [Moles/Vol] 4.4 mmol/L Normal 3.5-5.1 [facility] Comment on above: Performed By: #### C MP, TSH #### [facility] [address] [address] [address] Kayy Virgen Protein [Mass/Vol] 7.8 g/dL Normal 6.4-8.2 [facility] Comment on above: Performed By: #### C MP, TSH #### [facility] [address] [address] [address] Kayy Virgen Sodium [Moles/Vol] 138 mmol/L Normal 136-145 [facility] Comment on above: Performed By: #### C MP, TSH #### [facility] [address] [address] [address] Kayy Virgen Urea nitrogen [Mass/Vol] 22.0 mg/dL Critically high 7.0-18.[address] [facility] Comment on above: Performed By: #### C MP, TSH #### [facility] [address] [address] [address] Kayy Virgen Urea nitrogen/Creatinine [Mass ratio] 22.4 mg/mg Normal [facility] Comment on above: Performed By: #### C MP, TSH #### [facility] [address] [address] [address] Kayy Virgen TSHon 11-09-2021 TSH 1.200 uIU/mL Normal 0.358-3.740 [facility] Comment on above: Performed By: #### C MP, TSH #### [facility] [address] [address] [address] Kayy Virgen AMYLASEon 08-31-2021 Amylase [Catalytic activity/Vol] 34 U/L Normal 25-[address] [facility] Comment on above: Performed By: #### A MY, CMP, LIPA ####[facility] [address] [address]Dr. Kayy Virgen CBC AUTO DIFFon 08-31-2021 BASO # 0.1 103/ul Normal 0.0-0.[address] [facility] Comment on above: Performed By: #### C BC ####[facility] [address] [address]Dr. Kayy Virgen Basophils/100 WBC (Bld) 0.8 % Normal 0.2-2.[address] [facility] Comment on above: Performed By: #### C BC ####[facility] [address] [address]Dr. Kayy Virgen EO # 0.0 103/ul Normal 0.0-0.7 [facility] Comment on above: Performed By: #### C BC ####[facility] [address] [address]Dr. Kayy Param Eosinophils/100 WBC (Bld) 0.6 % Critically low 0.9-7.[address] [facility] Comment on above: Performed By: #### C BC ####[facility] [address] [place], [place] [address]Dr. Kayy Virgen Erythrocyte distribution width (RBC) [Ratio] 13.9 % Normal 11.0-15.0 [facility] Comment on above: Performed By: #### C BC ####[facility] [address] [place], [place] [address]Dr. Kayy Virgen Hematocrit (Bld) [Volume fraction] 37.7 % Normal 36.0-48.0 [facility] Comment on above: Performed By: #### C BC ####[facility] [address] [place], [place] [address]Dr. Kayy Virgen Hemoglobin (Bld) [Mass/Vol] 12.3 g/dL Normal 12.0-16.0 [facility] Comment on above: Performed By: #### C BC ####[facility] [address] [place], [place] [address]Dr. Kayy Virgen IG # 0.02 10e3/ul Normal 0.00-0.03 [facility] Comment on above: Performed By: #### C BC ####[facility] [address] [place], [place] [address]Dr. Kayy Virgen IG % 0.3 % Normal 0.0-0.5 [facility] Comment on above: Performed By: #### C BC ####[facility] [address] [place], [place] [address]Dr. Kayy Virgen LYMPH # 1.4 103/ul Normal 1.2-3.8 [facility] Comment on above: Performed By: #### C BC ####[facility] [address] [place], [place] [address]Dr. Kayy Virgen Lymphocytes/100 WBC (Bld) 20.8 % Normal 20.5-60.[address] [facility] Comment on above: Performed By: #### C BC ####[facility] [address] [address]DrIrene Virgen MANUAL DIFF REQ NO Normal [facility] Comment on above: Performed By: #### C BC ####[facility] [address] [address]DrIrene Virgen MCH (RBC) [Entitic mass] 26.9 pg Normal 26.7-34.[address] [facility] Comment on above: Performed By: #### C BC ####[facility] [address] [place], [place] [address]DrIrene Virgen MCHC (RBC) [Mass/Vol] 32.6 g/dL Normal 29.9-35.2 [facility] Comment on above: Performed By: #### C BC ####[facility] T[address] [place], [place] [address]DrIrene Virgen MCV (RBC) [Entitic vol] 82.5 fL Normal 81.0-99.0 [facility] Comment on above: Performed By: #### C BC ####[facility] [address] [place], [place] [address]DrIrene Virgen MONO # 0.6 103/ul Normal 0.3-0.[address] [facility] Comment on above: Performed By: #### C BC ####[facility] [address] [place], [place] [address]DrIrene Virgen Monocytes/100 WBC (Bld) 8.8 % Normal 1.7-12.0 [facility] Comment on above: Performed By: #### C BC ####[facility] [address] [place], [place] [address]DrIrene Virgen NEUT # 4.5 103/ul Normal 1.4-6.5 [facility] Comment on above: Performed By: #### C BC ####[facility] [address] [place], [place] [address]DrIrene Virgen Neutrophils/100 WBC (Bld) 68.7 % Normal 43.0-75.[address] [facility] Comment on above: Performed By: #### C BC ####[facility] [address] [id number]. Kayy Virgen Platelet mean volume (Bld) [Entitic vol] 10.2 fL Normal 9.5-13.[address] [facility] Comment on above: Performed By: #### C BC ####[facility] [address] [id number]. Kayy Virgen PLT 265 103/ul Normal 150-450 [facility] Comment on above: Performed By: #### C BC ####[facility] [address] [address]Dr. Kayy Virgen RBC 4.57 106/ul Normal 4.20-5.[address] [facility] Comment on above: Performed By: #### C BC ####[facility] [address] [address]Dr. Kayy Virgen WBC 6.5 103/ul Normal 4.0-11.0 [facility] Comment on above: Performed By: #### C BC ####[facility] [id number]. Kayy Virgen CT ABD/PELVIS WO CONon 08-31 [...] DANNA CASTLE Date: 2021-08-31 12:25 Normal [facility] ER URINE PROFILEon 2 Bilirubin Ql (U) Negative Normal NEGATIVE [facility] Comment on above: Performed By: #### E RUR #### [facility] [address] [place] [address] Dr. Kayy Virgen Clarity (U) CLEAR Normal CLEAR [facility] Comment on above: Performed By: #### E RUR #### [facility] [address] [place] [address] Dr. Kayy Virgen Color (U) LT. YELLOW Normal YELLOW [facility] Comment on above: Performed By: #### E RUR #### [facility] [address] [place] [address] Dr. Kayy CABRERA A micrscopic examination will be performed if indicated. Normal [facility] Comment on above: Performed By: #### E RUR #### [facility] [address] [address] [address] Kayy Virgen Glucose Ql (U) Negative Normal NEGATIVE [facility] Comment on above: Performed By: #### E RUR #### [facility] [address] [address] [address] Kayy Virgen Hemoglobin Ql (U) Negative Normal NEGATIVE [facility] Comment on above: Performed By: #### E RUR #### [facility] [address] [place] [address] Dr. Kayy Virgen Ketones Ql (U) Negative Normal NEGATIVE [facility] Comment on above: Performed By: #### E RUR #### [facility] [address] [place] [address] Dr. Kayy Virgen LEUKOCYTES Negative Normal NEGATIVE [facility] Comment on above: Performed By: #### E RUR #### [facility] [address] [place] [address] Dr. Kayy Virgen Nitrite Ql (U) Negative Normal NEGATIVE [facility] Comment on above: Performed By: #### E RUR #### [facility] [address] [place] [address] Dr. Kayy Virgen pH (U) 6.0 [pH] Normal 5-[address] [facility] Comment on above: Performed By: #### E RUR #### [facility] [address] [place] [address] Dr. Kayy Virgen SPEC GRAVITY <=1.005 Abnormal 1.005-<=1.[address] [facility] Comment on above: Performed By: #### E RUR #### [facility] [address] [place] [address] Dr. Kayy Virgen UA PROTEIN Negative Normal NEGATIVE/ TRACE [facility] Comment on above: Performed By: #### E RUR #### [facility] [address] [place] [address] Dr. Kayy Virgen UR MICRO IND NOT INDICATED Normal [facility] Comment on above: Performed By: #### E RUR #### [facility] [address] [place] [address] Dr. Kayy Virgen Urobilinogen Qn (U) 0.2 {Cuauhtemoc'U}/dL Normal 0.2 - 1. [address] [facility] Comment on above: Performed By: #### E RUR #### [facility] [address] [place] [address] Dr. Kayy Virgen LIPASEon 08-31-2021 Lipase [Catalytic activity/Vol] 73.0 U/L Normal 73.0-393.[address] [facility] Comment on above: Performed By: #### A MY, CMP, LIPA #### [facility] [address] [place] [address] Dr. Kayy Virgen PROF 14(COMP METB)on 022 Albumin [Mass/Vol] 3.6 g/dL Normal 3.4-5.0 [facility] Comment on above: Performed By: #### A MY, CMP, LIPA ####[facility] [address] [address]Dr. Kayy Virgen Albumin/Globulin [Mass ratio] 0.9 {ratio} Normal [facility] Comment on above: Performed By: #### A MY, CMP, LIPA ####[facility] [address] [place], [place] [address]Dr. Kayy Virgen ALP [Catalytic activity/Vol] 98 U/L Normal 46-[address] [facility] Comment on above: Performed By: #### A MY, CMP, LIPA ####[facility] [address] [place], [place] [address]Dr. Kayy Virgen ALT [Catalytic activity/Vol] 22 U/L Normal 14-[address] [facility] Comment on above: Performed By: #### A MY, CMP, LIPA ####[facility] [address] [address]Dr. Kayy Virgen Anion gap [Moles/Vol] 12.6 mmol/L Normal [facility] Comment on above: Performed By: #### A MY, CMP, LIPA ####[facility] [address] [address]Dr. Kayy Virgen AST [Catalytic activity/Vol] 44 U/L Critically high 15-[address] [facility] Comment on above: Performed By: #### A MY, CMP, LIPA ####[facility] T[address] [place], [place] [address]Dr. Kayy Virgen Bilirubin [Mass/Vol] 0.5 mg/dL Normal 0.2-1.[address] [facility] Comment on above: Performed By: #### A MY, CMP, LIPA ####[facility] A[address] [place], [place] [address]Dr. Kayy Virgen Calcium [Mass/Vol] 9.2 mg/dL Normal 8.5-10.1 [facility] Comment on above: Performed By: #### A MY, CMP, LIPA ####[facility] [address] [address]Dr. Kayy Virgen Chloride [Moles/Vol] 104 mmol/L Normal 98-107 [facility] Comment on above: Performed By: #### A MY, CMP, LIPA ####[facility] [address] [address]Dr. Kayy Virgen CO2 [Moles/Vol] 24.3 mmol/L Normal 21.0-32.0 [facility] Comment on above: Performed By: #### A MY, CMP, LIPA ####[facility] [address] [place], [place] [address]Dr. Kayy Virgen Creatinine [Mass/Vol] 0.87 mg/dL Normal 0.55-1.02 [facility] Comment on above: Performed By: #### A MY, CMP, LIPA ####[facility] [address] [place], [place] [address]Dr. Kayy Virgen EGFR-AF RWANDAN >60 Normal >=60 [facility] Comment on above: Performed By: #### A MY, CMP, LIPA ####[facility] X[address] [place], [place] [address]Dr. Kayy Virgen EGFR-NON AF RWANDAN >60 Normal >=60 [facility] Comment on above: Performed By: #### A MY, CMP, LIPA ####[facility] [address] [place], [place] [address]Dr. Kayy Virgen Globulin (S) [Mass/Vol] 4.0 g/dL Normal [facility] Comment on above: Performed By: #### A MY, CMP, LIPA ####[facility] [address] [place], [place] [address]Dr. Kayy Virgen Glucose [Mass/Vol] 96 mg/dL Normal 74-106 [facility] Comment on above: Performed By: #### A MY, CMP, LIPA ####[facility] Myups[address] [place], [place] [address]Dr. Kayy Virgen Potassium [Moles/Vol] 3.9 mmol/L Normal 3.5-5.1 [facility] Comment on above: Performed By: #### A MY, CMP, LIPA ####[facility] [address] [id number]. Kayy Virgen Protein [Mass/Vol] 7.6 g/dL Normal 6.4-8.2 [facility] Comment on above: Performed By: #### A MY, CMP, LIPA ####[facility] [address] [address]Dr. Kayy Virgen Sodium [Moles/Vol] 137 mmol/L Normal 136-145 [facility] Comment on above: Performed By: #### A MY, CMP, LIPA ####[facility] [address] [address]Dr. Kayy Virgen Urea nitrogen [Mass/Vol] 11.0 mg/dL Normal 7.0-18.0 [facility] Comment on above: Performed By: #### A MY, CMP, LIPA ####[facility] [address] [id number]. Kayy Virgen Urea nitrogen/Creatinine [Mass ratio] 12.6 mg/mg Normal [facility] Comment on above: Performed By: #### A MY, CMP, LIPA ####[facility] [address] [id number]. Kayy Virgen US THYROID FN ASP BXon 07-05 US THYROID FN ASP BX Begin Addendum #1 COLLECTED DATE/TIME: 06/29/2021 13:56 EDT Final Diagnosis Report for [facility] [place] (A/B) RIGHT THYROID NODULE; FINE NEEDLE [...] (FNA). 2. Pathology results are pending. Normal [facility] US THYROIDon 06-21-2021 US THYROID [...] nodule. Fine needle aspiration recommended TI-RADS: The [employer] TI-RADS committee's white paper recommendations for thyroid lesions classified as TR4 (moderately suspicious) are listed below: > 1.0 cm. Follow-up ultrasound in 1, 2, 3, and 5 years. > 1.5 cm. FNA. J. Am Anais Radiol 2017;14:[id number]. Electronically authenticated by: ENIO MOHAN Date: 2021-06-21 12:[address] [facility] US CAROTID ART BILon 022 US CAROTID ART JEANNE EXAMINATION: US [...] by: DANNA CASTLE Date: 2021-06-08 13:[address] [facility] Blood Occult Stool Screen #1 on 10-13-2019 Date, Stool #1 [id number] [facility] [place] [place] Date, Stool #2 [...] 2019 Occult Blood 1 Negative Normal NEG [facility] Comment on above: Performed By: #### O BN #### [facility] [address] [place] [address] [employer] Operator: Elisabeth Worthy MD Specimen 1 Date [facility] Comment on above: Performed By: #### O BN #### [facility] [address] [place] [address] [employer] Operator: Elisabeth Worthy MD Specimen 1 Time 1199 Normal [facility] Comment on above: Performed By: #### O BN #### [facility] [address] [place] [address] [employer] Operator: Elisabeth Worthy MD Specimen 2 Date NOT REPORTED Normal [facility] Comment on above: Performed By: #### O BN #### [facility] [address] [place] [address] [employer] Operator: Elisabeth Worthy MD Specimen 2 Time NOT REPORTED Normal [facility] Comment on above: Performed By: #### O BN #### [facility] [address] [place] [address] [employer] Operator: Elisabeth Worthy MD Specimen 3 Date NOT REPORTED Normal [facility] Comment on above: Performed By: #### O BN #### [facility] [address] [place] [address] [employer] Operator: Elisabeth Worthy MD Specimen 3 Time NOT REPORTED Normal [facility] Comment on above: Performed By: #### O BN #### [facility] [address] [place] [address] [employer] Operator: Elisabeth Worthy MD Occult Blood 2 NOT REPORTED Normal NEG [facility] Comment on above: Performed By: #### O BN #### [facility] [address] [place] [address] [employer] Operator: Elisabeth Worthy MD Occult Blood 3 NOT REPORTED Normal [facility] Comment on above: Performed By: #### O BN #### [facility] [address] [place] [address] [employer] Operator: Elisabeth Worthy MD Free Thyroxine Indexon 10-07 FTI Ratio 2.0 ug/dL Normal 1.4-3.1 [facility] Comment on above: Performed By: #### F TI, FE #### [facility] [address] [place] [address] [employer] Operator: Otoniel Ash MD #### TSH, LIPR, CP, GLYHGB, CDP #### [facility] [address] [place] [address] [employer] Operator: Elisabeth Worthy MD T4 [Mass/Vol] 29.74 % Normal 22.5-37.0 [facility] Comment on above: Performed By: #### F TI, FE #### [address] [address] [employer] Operator: Otoniel Ash MD #### TSH, LIPR, CP, GLYHGB, CDP #### [facility] [address] [place] [address] Dr. [place], [place] [id number] [employer] Operator: Elisabeth Worthy MD T4 [Mass/Vol] 6.6 ug/dL Normal 4.5-10.9 [facility] Comment on above: Performed By: #### F TI, FE #### [address] [id number] [employer] Operator: Otoniel Ash MD #### TSH, LIPR, CP, GLYHGB, CDP #### [facility] [address] [place] [address] [place] [address] [employer] Operator: Elisabeth Worthy MD Ironon 10-08-2019 Iron [Mass/Vol] 73 ug/dL Normal 37-145 [facility] Comment on above: Performed By: #### F TI, FE #### [address] [address] [employer] Operator: Otoniel Ash MD #### TSH, LIPR, CP, GLYHGB, CDP #### [address] [place] [address] [employer] Operator: Elisabeth Worthy MD T3 uptake and FTIon 10-08-19 20 Free Thyroxine Index 2 ug/dL 1.4 - 3 .1 ug/dL [place] T4 [Mass/Vol] 29.74 % 22.5 - 37 % [place] T4, Total 6.6 ug/dL 4.5 - 10.9 ug/dL [place] CBC Auto Differentialon 09-16 Basophils (Bld) [#/Vol] 0.07 10*3/uL [place] Basophils/100 WBC (Bld) 1 % 0 - 2 % [place] Differential Type NOT REPORTED [place] Eosinophils (Bld) [#/Vol] 0.06 10*3/uL [place] Eosinophils/100 WBC (Bld) 1 % 1 - 4 % [place] Erythrocyte distribution width (RBC) [Ratio] 14.5 % High 11.8 - 14.4 % [place] Hematocrit (Bld) [Volume fraction] 42.4 % 36.3 - 47.1 % [place] Hemoglobin (Bld) [Mass/Vol] 13.2 g/dL 11.9 - 15.1 g/dL [place] Immature granulocytes (Bld) [#/Vol] 10*3/uL [place] Immature granulocytes (Bld) [#/Vol] 0 % 0 [place] Interpretation and review of laboratory results Abnormal [place] Lymphocytes (Bld) [#/Vol] 1.87 10*3/uL [place] Lymphocytes/100 WBC (Bld) 33 % 24 - 43 % [place] MCH (RBC) [Entitic mass] 26.1 pg 25.2 - 33.5 pg [place] MCHC (RBC) [Mass/Vol] 31.1 g/dL 28.4 - 34.8 g/dL [place] MCV (RBC) [Entitic vol] 84.0 fL 82.6 - 102.9 fL [place] Monocytes (Bld) [#/Vol] 0.45 10*3/uL [place] Monocytes/100 WBC (Bld) 8 % 3 - 12 % [place] Platelet mean volume (Bld) [Entitic vol] 10.1 fL 8.1 - 13.5 fL [place] Platelets (Bld) [#/Vol] 270 10*3/uL [place] Platelets (Bld) [#/Vol] NOT REPORTED [place] RBC (Bld) [#/Vol] 5.05 10*6/uL 3.95 - 5.1 1 m/uL [place] RBC morphology finding Nom (Bld) NOT REPORTED [place] Segmented neutrophils/100 WBC (Bld) 57 % 36 - 65 % [place] Segs Absolute 3.17 [place] WBC (Bld) [#/Vol] 5.6 10*3/uL [place] WBC (Bld) [#/Vol] 0.0 10*3/uL 0.0 per 10 0 WBC [place] WBC Morphology NOT REPORTED [place] CBC with Diffon 10-07-2019 Abs. Basophil 0.07 k/uL Normal 0.00-0.20 [facility] Comment on above: Performed By: #### F TI, FE #### [place] [address] [employer] Operator: Otoniel Ash MD #### TSH, LIPR, CP, GLYHGB, CDP #### [address] [place] [phone] [employer] Operator: Elisabeth Worthy MD Abs.Imm.Granulocyte <0.03 Normal 0.00-0.30 [facility] Comment on above: Performed By: #### F HUMBERTO, FE #### [place] [id number] [employer] Operator: Otoniel Ash MD #### TSH, LIPR, CP, GLYHGB, CDP #### [address] [place] [phone] [employer] Operator: Elisabeth Worthy MD Abs.Neutrophil (Seg) 3.17 k/uL Normal 1.50-8.10 [facility] Comment on above: Performed By: #### F TI, FE #### [place] [phone] [employer] Operator: Otoniel Ash MD #### TSH, LIPR, CP, GLYHGB, CDP #### [address] [place] [phone] [employer] Operator: Elisabeth Worthy MD Basophils/100 WBC (Bld) 1 % Normal 0-2 [facility] Comment on above: Performed By: #### F TI, FE #### [address] [address] [employer] Operator: Otoniel Ash MD #### TSH, LIPR, CP, GLYHGB, CDP #### [address] [place] [phone] [employer] Operator: Elisabeth Worthy MD Eosinophils (Bld) [#/Vol] 0.06 10*3/uL Normal 0.00-0.44 [facility] Comment on above: Performed By: #### F TI, FE #### [place] [phone] [employer] Operator: Otoniel Ash MD #### TSH, LIPR, CP, GLYHGB, CDP #### [address] [place] [phone] [employer] Operator: Elisabeth Worthy MD Eosinophils/100 WBC (Bld) 1 % Normal 1-4 [facility] Comment on above: Performed By: #### F TI, FE #### [place] [phone] [employer] Operator: Otoniel Ash MD #### TSH, LIPR, CP, GLYHGB, CDP #### [address] [place] [phone] [employer] Operator: Elisabeth Worthy MD Erythrocyte distribution width (RBC) [Ratio] 14.5 % High 11.8-14.4 [facility] Comment on above: Performed By: #### F TI, FE #### [place] [address] [employer] Operator: Otoniel Ash MD #### TSH, LIPR, CP, GLYHGB, CDP #### [address] [place] [phone] [employer] Operator: Elisabeth Worthy MD Hematocrit (Bld) [Volume fraction] 42.4 % Normal 36.3-47.1 [facility] Comment on above: Performed By: #### F TI, FE #### [address] [phone] [employer] Operator: Otoniel Ash MD #### TSH, LIPR, CP, GLYHGB, CDP #### [address] [place] [phone] [employer] Operator: Elisabeth Worthy MD Hemoglobin (Bld) [Mass/Vol] 13.2 g/dL Normal 11.9-15.1 [facility] Comment on above: Performed By: #### F TI, FE #### [address] [phone] [employer] Operator: Otoniel Ash MD #### TSH, LIPR, CP, GLYHGB, CDP #### [address] [place] [phone] [employer] Ribbon Machine Operator: Elisabeth Worthy MD Immature granulocytes (Bld) [#/Vol] 0 % Normal 0 [facility] Comment on above: Performed By: #### F TI, FE #### [address] [phone] [employer] Operator: Otoniel Ash MD #### TSH, LIPR, CP, GLYHGB, CDP #### [address] [place] [phone] [employer] Machine Operator: Elisabeth Worthy MD Lymphocytes (Bld) [#/Vol] 1.87 10*3/uL Normal 1.10-3.70 [facility] Comment on above: Performed By: #### F TI, FE #### [address] [id number] [employer] Machine Operator: Otoniel Ash MD #### TSH, LIPR, CP, GLYHGB, CDP #### [facility] [address] [place] [address] [employer] Operator: Elisabeth Worthy MD Lymphocytes/100 WBC (Bld) 33 % Normal 24-43 [facility] Comment on above: Performed By: #### F TI, FE #### [address] [phone] [employer] Operator: Otoniel Ash MD #### TSH, LIPR, CP, GLYHGB, CDP #### [address] [place] [phone] [employer] Operator: Elisabeth Worthy MD MCH (RBC) [Entitic mass] 26.1 pg Normal 25.2-33.5 [facility] Comment on above: Performed By: #### F TI, FE #### [address] [address] [employer] Operator: Otoniel Ash MD #### TSH, LIPR, CP, GLYHGB, CDP #### [address] [place] [facility]83 [employer] Operator: Elisabeth Worthy MD MCHC (RBC) [Mass/Vol] 31.1 g/dL Normal 28.4-34.8 [facility] Comment on above: Performed By: #### F TI, FE #### [address] [phone] [employer] Machine Operator: Otoniel Ash MD #### TSH, LIPR, CP, GLYHGB, CDP #### [address] [place] [facility]83 [employer] Machine Operator: Elisabeth Worthy MD MCV (RBC) [Entitic vol] 84.0 fL Normal 82.6-102.9 [facility] Comment on above: Performed By: #### F TI, FE #### [address] [phone] [employer] Operator: Otoniel Ash MD #### TSH, LIPR, CP, GLYHGB, CDP #### [address] [place] [phone] [employer] Operator: Elisabeth Worthy MD Monocytes (Bld) [#/Vol] 0.45 10*3/uL Normal 0.10-1.20 [facility] Comment on above: Performed By: #### F TI, FE #### [address] [phone] [employer] Operator: Otoniel Ash MD #### TSH, LIPR, CP, GLYHGB, CDP #### [address] [place] [phone] [employer] Rib[employer] Machine Operator: Elisabeth Worthy MD Monocytes/100 WBC (Bld) 8 % Normal 3-12 [facility] Comment on above: Performed By: #### F TI, FE #### [address] [phone] [employer] Rib[employer] Machine Operator: Otoniel Ash MD #### TSH, LIPR, CP, GLYHGB, CDP #### [address] [place] [phone] [employer] Rib[employer] Machine Operator: Elisabeth Worthy MD Neutrophil (Seg) 57 % Normal 36-65 [facility] Comment on above: Performed By: #### F TI, FE #### [address] [address] [employer] Operator: Otoniel Ash MD #### TSH, LIPR, CP, GLYHGB, CDP #### [address] [place] [phone] [employer] Machine Operator: Elisabeth Worthy MD NRBC Automated 0.0 per 100 WBC Normal 0.0 [facility] Comment on above: Performed By: #### F TI, FE #### [address] [phone] [employer] Machine Operator: Otoinel Ash MD #### TSH, LIPR, CP, GLYHGB, CDP #### [address] [place] [address] [employer] Machine Operator: Elisabeth Worthy MD Platelet mean volume (Bld) [Entitic vol] 10.1 fL Normal 8.1-13.5 [facility] Comment on above: Performed By: #### F TI, FE #### [address] [address] [employer] Operator: Otoniel Ash MD #### TSH, LIPR, CP, GLYHGB, CDP #### [address] [place] [phone] [employer] Machine Operator: Elisabeth Worthy MD Platelets (Bld) [#/Vol] 270 10*3/uL Normal 138-453 [facility] Comment on above: Performed By: #### F TI, FE #### [address] [address] [employer] Rib[employer] Machine Operator: Otoniel Ash MD #### TSH, LIPR, CP, GLYHGB, CDP #### [address] [place] [phone] [employer] Machine Operator: Elisabeth Worthy MD RBC (Bld) [#/Vol] 5.05 10*6/uL Normal 3.95-5.11 [facility] Comment on above: Performed By: #### F TI, FE #### [address] [address] [employer] Machine Operator: Otoniel Ash MD #### TSH, LIPR, CP, GLYHGB, CDP #### [address] [place] [address] [employer] Machine Operator: Elisabeth Worthy MD WBC (Bld) [#/Vol] 5.6 10*3/uL Normal 3.5-11.3 [facility] Comment on above: Performed By: #### F TI, FE #### [address] [address] [employer] Machine Operator: Otoniel Ash MD #### TSH, LIPR, CP, GLYHGB, CDP #### [facility] [address] [place] [address] [place], [place] [phone] [employer] Ribbon Machine Operator: Elisabeth Worthy MD Auto Diff Performed NOT REPORTED Normal [facility] Comment on above: Performed By: #### F TI, FE #### [address] [address] [employer] Rib[employer] Machine Operator: Otoniel Ash MD #### TSH, LIPR, CP, GLYHGB, CDP #### [address] [place] [phone] [employer] Rib[employer] Machine Operator: Elisabeth Worthy MD Platelets (Bld) [#/Vol] NOT REPORTED Normal [facility] Comment on above: Performed By: #### F TI, FE #### [address] [address] [employer] Rib[employer] Machine Operator: Otoniel Ash MD #### TSH, LIPR, CP, GLYHGB, CDP #### [address] [place] [phone] [employer] Ribbon Machine Operator: Elisabeth Worthy MD RBC morphology finding Nom (Bld) NOT REPORTED Normal [facility] Comment on above: Performed By: #### F TI, FE #### [address] [address] [employer] Operator: Otoniel Ash MD #### TSH, LIPR, CP, GLYHGB, CDP #### [address] [place], [place] [phone] [employer] Machine Operator: Elisabeth Worthy MD WBC Morphology NOT REPORTED Normal [facility] Comment on above: Performed By: #### F TI, FE #### [address] [phone] [employer] Operator: Otoniel Ash MD #### TSH, LIPR, CP, GLYHGB, CDP #### [address] [place] [address] [employer] Rib[employer] Machine Operator: Elisabeth Worthy MD Comp Metabolic Profon 2019 (cont.) Normal [facility] Comment on above: Result Comment: Aver age GFR for 60-69 years old: 85 mL/min/1.73sq m Chronic Kidney Disease: <60 mL/min/1.73sq m Kidney failure: <15 mL/min/1.73sq m eGFR calculated using average adult body mass. Additional eGFR calculator available at: http://www.[employer]/multiple_crcl_2012.htm Performed By: #### F TI, FE #### [address] [address] [employer] Rib[employer] Machine Operator: Otoniel Ash MD #### TSH, LIPR, CP, GLYHGB, CDP #### [address] [place] [address] [employer] Machine Operator: Elisabeth Worthy MD Albumin [Mass/Vol] 4.5 g/dL Normal 3.5-5.2 [facility] Comment on above: Performed By: #### F TI, FE #### [address] [address] [employer] Rib[employer] Machine Operator: Otoniel Ash MD #### TSH, LIPR, CP, GLYHGB, CDP #### [address] [place] [address] [employer] Machine Operator: Elisabeth Worthy MD Albumin/Globulin [Mass ratio] 1.4 {ratio} Normal 1.0-2.5 [facility] Comment on above: Performed By: #### F TI, FE #### [address] [phone] [employer] Machine Operator: Otoniel Ash MD #### TSH, LIPR, CP, GLYHGB, CDP #### [facility] [address] [place] [address] [employer] Ribbon Machine Operator: Elisabeth Worthy MD Alkaline Phos 94 U/L Normal 35-104 [facility] Comment on above: Performed By: #### F TI, FE #### [address] [phone] [employer] Rib[employer] Machine Operator: Otoniel Ash MD #### TSH, LIPR, CP, GLYHGB, CDP #### [facility] [address] [place] [address] [employer] Machine Operator: Elisabeth Worthy MD ALT [Catalytic activity/Vol] 10 U/L Normal 5-33 [facility] Comment on above: Performed By: #### F TI, FE #### [address] [id number] [employer] Machine Operator: Otoniel Ash MD #### TSH, LIPR, CP, GLYHGB, CDP #### [facility] [address] [place] [address] [employer] Machine Operator: Elisabeth Worthy MD Anion gap [Moles/Vol] 12 mmol/L Normal 9-17 [facility] Comment on above: Performed By: #### F TI, FE #### [address] [phone] [employer] Operator: Otoniel Ash MD #### TSH, LIPR, CP, GLYHGB, CDP #### [facility] [address] [place] [address] [employer] Ribbon Machine Operator: Elisabeth Worthy MD AST [Catalytic activity/Vol] 40 U/L High <32 [facility] Comment on above: Performed By: #### F TI, FE #### [address] [phone] [employer] Rib[employer] Machine Operator: Otoniel Ash MD #### TSH, LIPR, CP, GLYHGB, CDP #### [facility] [address] [place] [address] [employer] Rib[employer] Machine Operator: Elisabeth Worthy MD Bilirubin Ql (U) 0.27 mg/dL Low 0.3-1.2 [facility] Comment on above: Performed By: #### F TI, FE #### [address] [phone] [employer] Rib[employer] Machine Operator: Otoniel Ash MD #### TSH, LIPR, CP, GLYHGB, CDP #### [facility] [address] [place] [phone] [employer] Rib[employer] Machine Operator: Elisabeth Worthy MD BUN/CRE Ratio 22 High 9-20 [facility] Comment on above: Performed By: #### F TI, FE #### [address] [phone] [employer] Rib[employer] Machine Operator: Otoniel Ash MD #### TSH, LIPR, CP, GLYHGB, CDP #### [facility] [address] [place] [address] Dr. [place] [phone] [employer] Rib[employer] Machine Operator: Elisabeth Worthy MD Calcium [Mass/Vol] 10.0 mg/dL Normal 8.6-10.4 [facility] Comment on above: Performed By: #### F TI, FE #### [address] [phone] [employer] Rib[employer] Machine Operator: Otoniel Ash MD #### TSH, LIPR, CP, GLYHGB, CDP #### [facility] [address] [place] [address] [place] [address] [employer] Rib[employer] Machine Operator: Elisabeth Worthy MD Chloride [Moles/Vol] 105 mmol/L Normal 98-107 [facility] Comment on above: Performed By: #### F TI, FE #### [address] [phone] [employer] Ribbon Machine Operator: Otoniel Ash MD #### TSH, LIPR, CP, GLYHGB, CDP #### [facility] [address] [place] [address] [place] [address] [employer] Ribbon Machine Operator: Elisabeth Worthy MD CO2 [Moles/Vol] 21 mmol/L Normal 20-31 [facility] Comment on above: Performed By: #### F TI, FE #### [address] [address] [employer] Rib[employer] Machine Operator: Otoniel Ash MD #### TSH, LIPR, CP, GLYHGB, CDP #### [address] [place] [phone] [employer] Rib[employer] Machine Operator: Elisabeth Worthy MD Creatinine [Mass/Vol] 0.79 mg/dL Normal 0.50-0.90 [facility] Comment on above: Performed By: #### F TI, FE #### [address] [phone] [employer] Rib[employer] Machine Operator: Otoniel Ash MD #### TSH, LIPR, CP, GLYHGB, CDP #### [address] [place] [phone] [employer] Ribbon Machine Operator: Elisabeth Worthy MD GFR, Amer >60 Normal >60 [facility] Comment on above: Performed By: #### F TI, FE #### [address] [address] [employer] Rib[employer] Machine Operator: Otoniel Ash MD #### TSH, LIPR, CP, GLYHGB, CDP #### [facility] [address] [place] [address] [place] [address] [employer] Ribbon Machine Operator: Elisabeth Worthy MD GFR,non Amer >60 Normal >60 [facility] Comment on above: Performed By: #### F TI, FE #### [address] [address] [employer] Rib[employer] Machine Operator: Otoniel Ash MD #### TSH, LIPR, CP, GLYHGB, CDP #### [address] [place] [phone] [employer] Rib[employer] Machine Operator: Elisabeth Worthy MD Glucose [Mass/Vol] 99 mg/dL Normal 70-99 [facility] Comment on above: Performed By: #### F TI, FE #### [address] [address] [employer] Rib[employer] Machine Operator: Otoniel Ash MD #### TSH, LIPR, CP, GLYHGB, CDP #### [address] [place] [phone] [employer] Rib[employer] Machine Operator: Elisabeth Worthy MD Potassium [Moles/Vol] 4.1 mmol/L Normal 3.7-5.3 [facility] Comment on above: Performed By: #### F TI, FE #### [address] [address] [employer] Rib[employer] Machine Operator: Otoniel Ash MD #### TSH, LIPR, CP, GLYHGB, CDP #### [address] [place] [phone] [employer] Rib[employer] Machine Operator: Elisabeth Worthy MD Protein [Mass/Vol] 7.7 g/dL Normal 6.4-8.3 [facility] Comment on above: Performed By: #### F TI, FE #### [address] [address] [employer] Rib[employer] Machine Operator: Otoniel Ash MD #### TSH, LIPR, CP, GLYHGB, CDP #### [address] [place] [phone] [employer] Rib[employer] Machine Operator: Elisabeth Worthy MD Sodium [Moles/Vol] 138 mmol/L Normal 135-144 [facility] Comment on above: Performed By: #### F TI, FE #### [address] [id number] [employer] Rib[employer] Machine Operator: Otoniel Ash MD #### TSH, LIPR, CP, GLYHGB, CDP #### [facility] [address] [place] [address] [place] [address] [employer] Ribbon Machine Operator: Elisabeth Worthy MD Staging: Normal [facility] Comment on above: Result Comment: Stag e 1: Some kidney damage normal GFR Stage 2: Mild kidney damage GFR 60-89 Stage 3: Moderate kidney damage GFR 30-59 Stage 4: Severe kidney damage GFR 15-29 Stage 5: Severe kidney damage GFR <15 ESRD - chronic treatment by dialysis or transplant Performed By: #### F TI, FE #### [address] [address] [employer] Rib[employer] Machine Operator: Otoniel Ash MD #### TSH, LIPR, CP, GLYHGB, CDP #### [address] [place] [address] [employer] Rib[employer] Machine Operator: Elisabeth Worthy MD Urea nitrogen [Mass/Vol] 17 mg/dL Normal 11-07 [facility] Comment on above: Performed By: #### F TI, FE #### [address] [address] [employer] Rib[employer] Machine Operator: Otoniel Ash MD #### TSH, LIPR, CP, GLYHGB, CDP #### [address] [place] [address] [employer] Ribbon Machine Operator: Elisabeth Worthy MD [facility] [place] 10-07-2019 Albumin [Mass/Vol] 4.5 g/dL 3.5 - 5.2 g/dL [place], [place] Albumin/Globulin [Mass ratio] 1.4 {ratio} [place] ALP [Catalytic activity/Vol] 94 U/L 35 - 104 U/L [place] ALT [Catalytic activity/Vol] 10 U/L 5 - 33 U/L [place] Anion gap [Moles/Vol] 12 mmol/L 9 - 17 mmol/L [place] AST [Catalytic activity/Vol] 40 U/L High <32 [place] Bilirubin Ql (U) 0.27 mg/dL Low 0.3 - 1.2 mg/dL [place] Bun/Cre Ratio 22 High [place] Calcium [Mass/Vol] 10.0 mg/dL 8.6 - 10. 4 mg/dL [place] Chloride [Moles/Vol] 105 mmol/L 98 - 10 7 mmol/L [place] CO2 [Moles/Vol] 21 mmol/L 20 - 31 mmol/L [place] Creatinine [Mass/Vol] 0.79 mg/dL 0.5 - 0.9 mg/dL [place] GFR >60 >60 mL/min [place], [place] GFR Non- >60 >60 mL/min [place] Glucose [Mass/Vol] 99 mg/dL 70 - 99 mg/dL [place] Potassium [Moles/Vol] 4.1 mmol/L 3.7 - 5.3 mmol/L [place] Protein [Mass/Vol] 7.7 g/dL 6.4 - 8.3 g/dL [place] Sodium [Moles/Vol] 138 mmol/L 135 - 144 mmol/L [place] Urea nitrogen [Mass/Vol] 17 mg/dL 8 - 23 mg/dL [place] Hemoglobin A1Con 10-07-2019 HbA1c (Bld) [Mass fraction] 5.3 % Normal 4.8-5.9 [facility] Comment on above: Performed By: #### F TI, FE #### [facility] [employer] [address] [place] [address] [employer] Ribbon Machine Operator: Otoniel Ash MD #### TSH, LIPR, CP, GLYHGB, CDP #### [facility] [address] [place] [address] [employer] Rib[employer] Machine Operator: Elisabeth Worthy MD HbA1c (Bld) [Mass fraction] 105 mg/dL Normal [facility] Comment on above: Result Comment: The ADA and AACC recommend providing the estimated average glucose result to permit better patient understanding of their HBA1c result. Performed By: #### F TI, FE #### [facility] [employer] [address] [place] [address] [employer] Ribbon Machine Operator: Otoniel Ash MD #### TSH, LIPR, CP, GLYHGB, CDP #### [facility] [address] [place] [address] [employer] Ribbon Machine Operator: Elisabeth Worthy MD Glucose [Mass/Vol] 105 mg/dL [place] Comment on above: The ADA and AACC rec ommend providing the estimated average glucose result to permit better patient understanding of their HBA1c result. HbA1c (Bld) [Mass fraction] 5.3 % 4.8 - 5.9 % [place] Ironon 10-07-2019 Iron [Mass/Vol] 73 ug/dL 37 - 145 ug/dL [place] Lipid Panelon 10-07-2019 Cholesterol [Mass/Vol] 229 mg/dL High <200 [place] Comment on above: Cholesterol Guidelines: <200 Desirable 200-240 Borderline >240 Undesirable Cholesterol in HDL [Mass/Vol] 67 mg/dL >40 [place] Comment on above: HDL Guidelines: <40 Undesirable 40-59 Borderline >59 Desirable Cholesterol in LDL [Mass/Vol] 127 mg/dL 0 - 130 mg/dL [place] Comment on above: LDL Guidelines: <100 Desirable 100-129 Near to/above Desirable 130-159 Borderline >159 Undesirable Direct (measured) LDL and calculated LDL are not interchangeable tests. Cholesterol in VLDL [Mass/Vol] NOT REPORTED High 1 - 30 mg/dL [place] Cholesterol.total/Cho lesterol in HDL [Mass ratio] 3.4 {ratio} <5 [place] Triglyceride [Mass/Vol] 175 mg/dL High <150 [place] Comment on above: Triglyceride Guidelines: <150 Desirable 150-199 Borderline 200-499 High >499 Very high Based on AHA Guidelines for fasting triglyceride, December 2011. Lipid Profileon 10-07-2019 Cholesterol [Mass/Vol] 229 mg/dL High <200 [facility] Comment on above: Result Comment: Cholesterol Guidelines: <200 Desirable 200-240 Borderline >240 Undesirable Performed By: #### F TI, FE #### [address] [address] [employer] Machine Operator: Otoniel Ash MD #### TSH, LIPR, CP, GLYHGB, CDP #### [address] [place] [phone] [employer] Rib[employer] Machine Operator: Elisabeth Worthy MD Cholesterol in HDL [Mass/Vol] 67 mg/dL Normal >40 [facility] Comment on above: Result Comment: HDL Guidelines: <40 Undesirable 40-59 Borderline >59 Desirable Performed By: #### F TI, FE #### [address] [address] [employer] Rib[employer] Machine Operator: Otoniel Ash MD #### TSH, LIPR, CP, GLYHGB, CDP #### [address] [place] [phone] [employer] Rib[employer] Machine Operator: Elisabeth Worthy MD Cholesterol in LDL [Mass/Vol] 127 mg/dL Normal 0-130 [facility] Comment on above: Result Comment: LDL Guidelines: <100 Desirable 100-129 Near to/above Desirable 130-159 Borderline >159 Undesirable Direct (measured) LDL and calculated LDL are not interchangeable tests. Performed By: #### F TI, FE #### [address] [address] [employer] Machine Operator: Otoniel Ash MD #### TSH, LIPR, CP, GLYHGB, CDP #### [address] [place] [address] [employer] Rib[employer] Machine Operator: Elisabeth Worthy MD Cholesterol.total/Cho lesterol in HDL [Mass ratio] 3.4 {ratio} Normal <5 [facility] Comment on above: Performed By: #### F TI, FE #### [address] [address] [employer] Machine Operator: Otoniel Ash MD #### TSH, LIPR, CP, GLYHGB, CDP #### [facility] [address] [place] [address] [employer] Rib[employer] Machine Operator: Elisabeth Worthy MD Triglyceride [Mass/Vol] 175 mg/dL High <150 [facility] Comment on above: Result Comment: Triglyceride Guidelines: <150 Desirable 150-199 Borderline 200-499 High >499 Very high Based on AHA Guidelines for fasting triglyceride, December 2011. Performed By: #### F TI, FE #### [address] [phone] [employer] Machine Operator: Otoniel Ash MD #### TSH, LIPR, CP, GLYHGB, CDP #### [facility] [address] [place] [address] [employer] Rib[employer] Machine Operator: Elisabeth Worthy MD Cholesterol in VLDL [Mass/Vol] NOT REPORTED Normal 04-16 [facility] Comment on above: Performed By: #### F TI, FE #### [id number] [place], [place] [id number] [employer] Machine Operator: Otoniel Ash MD #### TSH, LIPR, CP, GLYHGB, CDP #### [facility] [address] [place] [address] [place] [address] [employer] Machine Operator: Elisabeth Worthy MD Metabolic Panelon 10-07-2019 GFR/1.73 sq M predicted among non-blacks MDRD (S/P/Bld) [Vol rate/Area] [facility], [place] Comment on above: Stage 1: Some kidney [...] body mass. Additional eGFR calculator available at: http://www.[employer]/multiple_crcl_2012.htm Otheron 10-07-2019 Interpretation and review of laboratory results Abnormal [place], [place] TSH without Reflexon 020 TSH Qn 1.12 m[IU]/L [place] Thyroid Stim. Horm.on 2019 TSH Qn 1.12 m[IU]/L Normal 0.30-5.00 [facility] Comment on above: Performed By: #### F TI, FE #### [facility] [employer] [address] [place], [place] [id number] [employer] Machine Operator: Otoniel Ash MD #### TSH, LIPR, CP, GLYHGB, CDP #### [facility] [address] [place] [address] [employer] Machine Operator: Elisabeth Worthy MD Operative Reporton 8 Operative Report MR#: [id number] [facility] Pt. Name: Xena Ewing Room #: 0C Discharge Date: Birthdate: 1955 OPERATIVE REPORTDATE OF SURGERY: 03/17/2018SURGEON: Bart Holcomb M.D.TOOTH POLISHER: Carlton Galicia M.D.PREOPERATIVE DIAGNOSIS: Right recurrent de [...] for the entire procedure. Date Dict: 03/17/2018/10:00 A/Chad Andino Trans: 03/17/2018 11:55 A/Marissa_JN:[id number]: Anamika Valle M.D. [address] [facility] [id number] Normal [facility] POC GLUCOSE LABon 03-17-2018 Glucose mass conc 89 mg/dL Normal 70-100 [facility] Comment on above: Performed By: #### [id number] ####[facility] Vital Signs Date Time Vital Sign Value Performing Clinician Facility 06-01-2024 11:12-0400 Body mass index (BMI) [Ratio] 21.6 kg/m2 Severo Patricio DO Work Phone: [facility] 06-01-2024 11:12-0400 Body weight 58.88 kg Severo Patricio DO Work Phone: [facility] 06-01-2024 11:12-0400 Diastolic blood pressure 74 mm[Hg] Severo Patricio DO Work Phone: [facility] 06-01-2024 11:12-0400 Systolic blood pressure 124 mm[Hg] Severo Patricio DO Work Phone: [facility] 05-28-2024 11:26-0400 Body height 165.1 cm Semaj Brown DPM Work Phone: [facility] 05-28-2024 11:26-0400 Body mass index (BMI) [Ratio] 21.47 kg/m2 Semaj Brown DPM Work Phone: [facility] 05-28-2024 11:26-0400 Body weight 58.51 kg Semaj Brown DPM Work Phone: [facility] 05-28-2024 11:26-0400 Respiratory rate 18 /min Semaj Brown DPM Work Phone: [facility] 04-09-2024 10:48-0500 Body height 165.1 cm Semaj Brown DPM Work Phone: [facility] 04-09-2024 10:48-0500 Body mass index (BMI) [Ratio] 21.47 kg/m2 Semaj Brown DPM Work Phone: [facility] 04-09-2024 10:48-0500 Body weight 58.51 kg Semaj Brown DPM Work Phone: [facility] 04-09-2024 10:48-0500 Respiratory rate 18 /min Semaj Daniel DPM Work Phone: [facility] 03-19-2024 15:44-0500 Body height 165.1 cm Semaj Daniel DPM Work Phone: [facility] 03-19-2024 15:44-0500 Body mass index (BMI) [Ratio] 21.47 kg/m2 Semaj Daniel DPM Work Phone: [facility] 03-19-2024 15:44-0500 Body weight 58.51 kg Semaj Daniel DPM Work Phone: [facility] 03-19-2024 15:44-0500 Respiratory rate 18 /min Semaj Daniel DPM Work Phone: [facility] 02-05-2024 14:03-0500 Blood Pressure Location Rubén NILL [facility] 02-05-2024 14:03-0500 Diastolic blood pressure 84 mm[Hg] Rubén NILL [facility] 02-05-2024 14:03-0500 Heart rate 72 /min Rubén NILL [facility] 02-05-2024 14:03-0500 Respiratory rate 16 /min Rubén NILL [facility] 02-05-2024 14:03-0500 Systolic blood pressure 132 mm[Hg] Rubén NILL [facility] 10-23-2022 11:13-0400 Body height 165.1 cm Claire Morales MD Work Phone: [facility] 10-23-2022 11:13-0400 Body weight 73.07 kg Claire Morales MD Work Phone: [facility] 10-23-2022 11:13-0400 Diastolic blood pressure 71 mm[Hg] Claire Morales MD Work Phone: [facility] 10-23-2022 11:13-0400 Heart rate 77 /min Claire Morales MD Work Phone: [facility] 10-23-2022 11:13-0400 Systolic blood pressure 125 mm[Hg] Claire Morales MD Work Phone: [facility] Encounters Encounter Date Encounter Type Care Provider Facility Start: 06-01-2024 End: 06-01-2024 Bamboo flowsheet Severo Patricio DO Work Phone: [facility] Start: 06-01-2024 End: 06-01-2024 Bamboo flowsheet Severo Patricio DO Work Phone: [facility] Start: 06-01-2024 End: 06-01-2024 Patient encounter procedure Severo Patricio DO Work Phone: [facility] Work Phone: Start: 06-01-2024 End: 06-01-2024 Periodic preventive med est patient 65yrs& older Severo Patricio DO Work Phone: [facility] Comment on above: Well woman exam with routine gynecological exam; Breast cancer screening by mammogram; Postmenopausal state Start: 05-28-2024 End: 05-28-2024 Bamboo flowsheet Semaj Sanchez DPM Work Phone: [facility] Start: 05-28-2024 End: 05-28-2024 Bamboo flowsheet Semaj Sanchez DPM Work Phone: [facility] Start: 05-28-2024 End: 05-28-2024 ambulatory SEMAJ SANCHEZ Not Available Start: 05-28-2024 End: 05-28-2024 Patient encounter procedure Semaj Sanchez DPM Work Phone: [facility] Comment on above: 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 (Primary Dx); Verruca plantaris; Foot pain, right; Foot pain, left Start: 04-15-2024 End: 04-15-2024 ambulatory Rubén MANUEL Facility:[id number] Start: 04-09-2024 End: 04-09-2024 Bamboo flowsheet Semaj Sanchez DPM Work Phone: [facility] Start: 04-09-2024 End: 04-09-2024 Bamboo flowsheet Semaj Sanchez DPM Work Phone: [facility] Start: 04-09-2024 End: 04-09-2024 Patient encounter procedure Semaj Sanchez DPM Work Phone: [facility] Comment on above: Verruca plantaris (P rimary Dx); Foot pain, right; Foot pain, left Start: 04-09-2024 End: 04-09-2024 ambulatory SEMAJ SANCHEZ Not Available Start: 03-19-2024 End: 03-19-2024 Office outpatient visit 15 minutes Semaj Sanchez DPM Work Phone: [facility] Comment on above: Neoplasm [...] Start: 02-06-2024 End: 02-06-2024 ambulatory GEORGES BURNS Facility:[facility] Start: 02-06-2024 End: 02-06-[address] GEORGES BURNS [facility] Start: 02-05-2024 End: 02-05-2024 ambulatory Rubén MANUEL Facility: [facility] Start: 02-05-2024 End: 02-05-2024 Patient encounter procedure Rubén Holman [facility] Start: 12-27-2023 End: 12-27-2023 Patient encounter procedure MD Anamika Valle Work Phone: [facility] Work Phone: Start: 12-27-2023 End: 12-27-2023 ambulatory MD Anamika Valle Work Phone: [facility] Work Phone: Start: 12-17-2023 End: 12-17-2023 Bamboo flowsheet Shirin A Felter TECHNICAL CABLE JOINTER-AED TRAINER Work Phone: [facility] Start: 12-17-2023 End: 12-17-2023 Bamboo flowsheet Shirin A Felter TECHNICAL CABLE JOINTER-AED TRAINER Work Phone: [facility] Start: 12-17-2023 End: 12-17-2023 Office outpatient new 20 minutes Shirin A Felter TECHNICAL CABLE JOINTER-AED TRAINER Work Phone: [facility] Comment on above: Other nonthrombocyto penic purpura (CMS/HCC) (Primary Dx); Actinic keratosis Start: 12-17-2023 End: 12-17-2023 ambulatory SHIRIN A FELTER Not Available Start: 07-31-2023 End: 07-31-2023 ambulatory MONIE NAVARRO Not Available Start: 07-03-2023 End: 07-03-2023 ambulatory MONIE NAVARRO Not Available Start: 12-24-2022 End: 12-24-2022 ambulatory MD Anamika Valle Work Phone: [facility] Work Phone: Start: 12-24-2022 End: 12-24-2022 Patient encounter procedure MD Anamika Valle Work Phone: [facility] Work Phone: Start: 10-23-2022 End: 10-24-2022 ambulatory ANAMIKA VALLE Facility:[facility] Start: 10-23-2022 End: 10-23-2022 Patient encounter procedure Claire Morales MD Work Phone: General Surgery Comment on above: Ventral hernia witho ut obstruction or gangrene (Primary Dx) Start: 04-19-2022 End: 04-19-2022 ambulatory DESTINI DOOLEY Facility:[facility] Start: 01-05-2022 End: 01-06-[address] ANAMIKA VALLE Facility:[facility] Start: 12-21-2021 End: 12-21-2021 ambulatory MD Anamika Valle Work Phone: [facility] Work Phone: Start: 12-21-2021 End: 12-21-2021 Patient encounter procedure MD Anamika Valle Work Phone: [facility] Start: 11-09-2021 End: 11-10-[address] ANAMIKA VALLE Facility:[facility] Start: 08-31-2021 End: 08-31-[address] ANAMIKA VALLE Facility:[facility] Start: 06-29-2021 End: 06-29-[address] ANAMIKA VALLE Facility:[facility] Start: 06-21-2021 End: 06-22-[address] ANAMIKA VALLE Facility:[facility] Start: 06-08-2021 End: 06-09-[address] ANAMIKA VALLE Facility:[facility] Start: 10-13-2019 End: 10-14-2019 Patient encounter procedure [facility] Start: 10-13-2019 End: 10-13-2019 Subsequent hospital visit by physician Anamika KEATING Laboratory Start: 10-07-2019 End: 10-08-2019 Patient encounter procedure [facility] Start: 10-07-2019 End: 10-07-2019 Subsequent hospital visit by physician [facility] Lab Drawing Room [facility] Laboratory Comment on above: Arrived Start: 03-17-2018 End: 03-18-2018 Patient encounter procedure GIOVANI HOLCOMB Facility:[facility] Start: 02-14-2018 End: 02-15-2018 Patient encounter procedure DEFAULT PHYSICIAN Facility:[facility] Procedures Date Procedure Procedure Detail Performing Clinician Start: 12-27-2023 Screening mammograph y of bilateral breasts MD Anamika Valle Work Phone: Start: 12-17-2023 CRYOTHERAPY SKIN LESION Shirin Escobar TECHNICAL CABLE JOINTERMir Tesen Work Phone: Start: 12-24-2022 Screening mammograph y of bilateral breasts MD Anamika Valle Work Phone: Start: 04-19-2022 Mammography Shirin Luna ltreese TECHNICAL CABLE JOINTERMir Tesen Work Phone: Start: 12-21-2021 Screening mammograph y [...] Start: 03-17-2018 ANESTH LOWER ARM SURGERY BOUCHRA HAPRER Start: 03-17-2018 INCISION OF TENDON SHEATH ABDULAZIM JI Appendectomy Rubén NILL Colonoscopy Rubén NILL Decompression of med vernon nerve Rubén NILL Re-release of carpal tunnel Rubén NILL Total abdominal hysterectomy with bilateral salpingo-oophorectomy Rubén NILL Plan of Treatment Date Care Activity Detail Author Start: 06-01-2028 DTaP/Tdap/Td vaccine (2 - Td) DTaP/Tdap/Td vaccine (2 - Td) [place], [place] Start: 10-06-2024 Lipid panel Lipid screen [place], [place] Start: 08-06-2024 End: 08-06-2024 Patient encounter procedure 08/06/2024 11:20 AM EDT Procedure Visit [facility] [address] [phone] Semaj Sanchez DPM [address] [address] [facility] Start: 06-11-2024 End: 06-11-2024 Patient encounter procedure 06/11/2024 11:30 AM EDT Office Visit [facility] [address] [facility] [address] [place] [phone] Semaj Sanchez DPM [address] [address] [facility] Start: 06-01-2024 End: 06-01-2025 DXA Skeletal system Views for bone density DEXA bone density Imaging Routine Postmenopausal state Expected: 06/01/2024 (Approximate), Expires: 06/01/2025 [facility] Comment on above: Expected: 06/01/2024 (Approximate), Expires: 06/01/2025 Start: 06-01-2024 End: 08-01-2025 MG Breast - bilateral Screening Bilateral screening mammogram Imaging Routine Breast cancer screening by mammogram Expected: 06/01/2024, Expires: 08/01/2025 [facility] Work Phone: Comment on above: Expected: 06/01/2024 , Expires: 08/01/2025 Start: 06-01-2024 End: 06-01-2024 Patient encounter procedure [facility] Comment on above: Arrived Start: 05-28-2024 End: 05-28-2024 Patient encounter procedure 05/28/2024 11:00 AM EDT Procedure Visit [facility] [address] [place] [address] Semaj Sanchez DPM [address] [address] [facility] Start: 04-09-2024 End: 04-09-2024 Patient encounter procedure 04/09/2024 11:00 AM EST Office Visit [facility] [address] [place] [address] Semaj Sanchez DPM [address] [address] Verruca plantaris (Primary Dx); Foot pain, right; Foot pain, left [facility] Comment on above: Verruca plantaris (P rimary Dx); Foot pain, right; Foot pain, left Start: 03-19-2024 End: 03-19-2024 Patient encounter procedure 03/19/2024 3:50 PM EST Office Visit [facility] [address] [place] [phone] Semaj Sanchez, COREY [address] [facility] [address] [place] [address] [facility] Start: 12-17-2023 End: 12-17-2023 Patient encounter procedure 12/17/2023 11:05 AM EDT Office Visit [facility] [address] [place] [phone] Shirin Escobar, TECHNICAL CABLE JOINTER-AED TRAINER [address] [place] [address] Arrived [facility] Comment on above: Arrived Start: 11-17-2023 Influenza vaccination Influenza Vacc ine (#1) [facility] Start: 04-19-2023 Screening for malign ant neoplasm of breast Mammogram [facility] Start: 11-16-2022 Influenza vaccination INFLUENZA (#1) [facility] Start: 04-21-2022 COVID-19 VACCINE (5 - Pfizer series) COVID-19 VACCINE (5 - Pfizer series) [facility] Start: 03-18-2022 ADVANCE DIRECTIVE DISCUSSION ADVANCE DIRECTIVE DISCUSSION [facility] Start: 03-18-2022 DEPRESSION ASSESSMENT DEPRESSION ASS ESSMENT [facility] Start: 2021 BONE DENSITY BONE DENSITY [facility] Start: 2021 Pneumococcal Vaccine : 65+ Years (2 of 2 - PCV) Pneumococcal Vaccine: 65+ Years (2 of 2 - PCV) [facility] Start: 11-17-2019 Influenza vaccination Flu vaccine (# 1) [place], [place] Start: 2006 Influenza vaccination LUNG CANCER SC RAMIRO [facility] Start: 2006 Screening for malign ant neoplasm of breast Breast cancer screen [place], [place] Start: 2006 Screening for malign ant neoplasm of colon Colon cancer screen colonoscopy [place], [place] Start: 2006 Shingles Vaccine (1 of 2) Shingles Vaccine (1 of 2) [place] Start: 2006 SHINGRIX VACCINE (1 of 2) SHINGRIX VACCINE (1 of 2) [facility] Start: 2001 COLOGUARD (FIT-DNA) COLOGUARD (FIT-D NA) [facility] Start: 2001 Colonoscopy COLONOSCOPY [facility] Start: 2001 COLORECTAL CANCER SCREENING COLORECTAL CANCER SCREENING [facility] Start: [address] [facility] Start: 2001 DIABETES SCREEN DIABETES SCREEN [facility] Start: 2001 FECAL OCCULT BLOOD FECAL OCCULT BLOO D [facility] Start: 2001 LIPID SCREEN LIPID SCREEN [facility] Start: 2001 SIGMOIDOSCOPY SIGMOIDOSCOPY [facility] Start: 1996 Lipid panel Lipid screen [place], [place] Start: 1996 Mammography MAMMOGRAM [facility] Start: 1977 Screening for malign ant neoplasm of cervix Cervical cancer screen [place], [place] Start: 12-12-1975 Urine microalbumin profile DTAP,TDAP,TD (1 - Tdap) [facility] Start: 1974 HEPATITIS C SCREENING HEPATITIS C [facility] Start: 1974 HIV SCREENING HIV SCREENING [facility] Start: 12-12-1971 [facility] [place] [place] Start: 1962 PNEUMOCOCCAL: 65+ (1 - PCV) PNEUMOCOCCAL: 65+ (1 - PCV) [facility] Start: 1956 Hepatitis C screening Hepatitis C de katherine [place], [place] Start: 1956 Screening for malign ant neoplasm of colon [facility] THIN PREP TIS PAP AN D HR HPV DNA THIN PREP TIS PAP AND HR HPV DNA Pathology and Cytology Routine Well woman exam with routine gynecological exam Ordered: 06/01/2024 [facility] Comment on above: Ordered: 06/01/2024 Immunizations Immunization Date Immunization Notes Care Provider Angie stacy 12-19-2021 SARS-CoV-2 (COVID-19 ) [id number] Rubén MANUEL [facility] 04-04-2021 SARS-CoV-2 (COVID-19 ) mRNA BNT-162b2 vax Rubén CURTISL [facility] 12-16-2020 SARS-CoV-2 (COVID-19 ) mRNA BNT-162b2 vax Rubén NILL [facility] 11-28-2020 SARS-CoV-2 (COVID-19 ) mRNA BNT-162b2 vax Rubén NILL [facility] 06-05-2018 influenza virus vaccine, unspecified formulation Shirin Escobar TECHNICAL CABLE JOINTER-AED TRAINER Work Phone: [facility] 06-01-2018 tetanus toxoid, redu tu diphtheria toxoid, and acellular pertussis vaccine, adsorbed [facility] Room [place] Payers Date Payer Category Payer Self-pay [id number] 2023 Medicare (Managed Care) [employer] [id number] 2023 Medicare [id number] 2022 Medicare [id number]. [id number] 2019 Unknown [id number] 2019 Unknown MEDICAL EMELY [employer] - EXCHANGE [id number] 2019-Present [phone] [address] [place] [address] [id number]. [id number] 1959 Medicare [id number] 1959 Medicare [id number] 1959 Private Health Insurance [facility] [id number] 1956 Unknown [id number] 2.16.840.1.711853.3.579.2. 647 1956 Unknown [id number] 2.16.840.1.672948.3.579.2. 647 1956 Unknown [id number] 2.16.840.1.359638.3.579.2. 173 1956 Unknown [id number] 2.16.840.1.975518.3.579.2. 173 1956 Unknown [id number] 2.16.840.1.187197.3.579.2. 593 1956 Unknown [id number] 2.16.840.1.948365.3.579.2. 593 1956 Unknown [id number] 2.16.840.1.914363.3.579.2. 593 1956 Unknown [id number] 2.16.840.1.931009.3.579.2. 593 1956 Unknown [id number] 2.16.840.1.043604.3.579.2. 593 1956 Unknown [id number] 2.16.840.1.823274.3.579.2. 593 1956 Unknown [id number] 2.16.840.1.343998.3.579.2. 593 1956 Unknown [id number] 2.16.840.1.064611.3.579.2. 727 1956 Unknown [id number] 2.16.840.1.769508.3.579.2. 727 1956 Unknown [id number] 2.16.840.1.600788.3.579.2. 727 1956 Unknown [id number] 2.16.840.1.732292.3.579.2. 1259 1956 Unknown [id number] 2.16.840.1.051548.3.579.2. 1259 1956 Unknown [id number] 2.16.840.1.709212.3.579.2. 1259 1956 Unknown [id number] 2.16.840.1.467962.3.579.2. 1259 1956 Unknown [id number] 2.16.840.1.435818.3.579.2. 1259 1956 Unknown [id number] 2.16.840.1.894291.3.579.2. 1259 Medicare Medicare [id number] Unknown [id number] Unknown Unknown HCAP/HFA/FAP Active [id number] Unknown [id number] 2.16.840.1.258895.3.579.2. 531 Social History Date Type Detail Facility Start: 05-31-2018 End: 02-05-2024 Tobacco smoking status VTIS Former smoker [facility] Start: 05-31-2018 Alcohol intake Ex-drinker (finding) [place], [place] Start: 1955 Sex Assigned At Not on file [place] Exposure to SARS-CoV -2 (event) Not sure [place], [place] Start: 1955 Sex Assigned At Female F [facility] Start: 10-23-2022 [facility] History of tobacco use Cigarette Smoker C [facility] Start: 10-23-2022 End: 05-28-2024 Cigarettes smoked current (pack per day) - Reported 1 [facility] Start: 10-23-2022 End: 03-19-2024 Tobacco use and exposure User of smokeless tobacco [facility] Start: 10-23-2022 End: 05-28-2024 Alcohol intake Lifetime non-drinker (finding) [facility] Start: 10-23-2022 End: 05-28-2024 Tobacco use panel [facility] Start: 10-23-2022 Tobacco [facility] Start: 09-21-2022 End: 03-19-2024 Tobacco smoking status NHIS Never smoked tobacco [facility] Start: 04-27-2023 Alcohol Comment Caffine intake : 2-3 cups per day, coffee; tea [facility] Functional Status Date Assessment Result Facility 02-05-2024 Functional Status N/A [facility] Clinical Notes 08-31-2021 to 06-01-2024 Monica Silva, APPLICATION ASSISTANT - 06/01/2024 11:00 AM Riki Sanchez, DPAlida - 05/28/2024 11:00 AM EDLita Sanchez, DPM - 04/09/2024 11:00 AM ESTSemaj Sanchez, [facility] - 03/19/2024 3:50 PM EST Note Date & Type Note Facility 06-01-2024 History of Present illness Narrative Reason for Appointment: Patient ID: Xena Ewing is a 68 y.o. female who presents for Well Women Visit Patient presents today for Annual Exam. MEDICATIONS Current Outpatient Medications Medication Instructions cyclobenzaprine (FLEXERIL) 10 mg, Oral, 3 times daily doxepin (SINEquan) 10 MG capsule TAKE 1 TO 2 CAPSULES BY MOUTH AT BEDTIME NEEDED FOR ANXIETY famotidine (Pepcid) 40 MG tablet TAKE 1 TABLET BY MOUTH TWICE DAILY with one dose being AT BEDTIME meloxicam (Mobic) 7.5 MG tablet Every 24 hours pantoprazole (PROTONIX) 40 mg, Oral, Daily sucralfate (Carafate) 1 g tablet TAKE 1 TABLET BY MOUTH FOUR TIMES DAILY (BEFORE MEALS & AT BEDTIME ON AN EMPTY STOMACH) tiZANidine (Zanaflex) 4 MG tablet 2 tablets Orally at bedtime for 90 days ALLERGIES Allergies Allergen Reactions Ciprofloxacin Other Reaction(s): Patient reported problems Codeine Nausea Only Other Reaction(s): GI Disturbance Other Reaction(s): Gastrointestinal upset Etodolac Other Reaction(s): itching Other Sulfa Antibiotics Hives Other Reaction(s): Unknown PROBLEMS Active Ambulatory Problems Diagnosis Date Noted Foot pain, left 09/21/2022 Resolved Ambulatory Problems Diagnosis Date Noted No Resolved Ambulatory Problems Past Medical History: Diagnosis Date Appendicitis, acute 2021 Cramps of lower extremity Osteopenia Tendonitis HISTORY PAST MEDICAL HISTORY SOCIAL HISTORY Past Medical History: Diagnosis Date Appendicitis, acute 2021 Cramps of lower extremity at hs Osteopenia Tendonitis jeanne hands Social History Tobacco Use Smoking status: Never Smokeless tobacco: Current Substance Use Topics Alcohol use: Never Comment: Caffine intake: 2-3 cups per day, coffee; tea Drug use: Not on file FAMILY HISTORY Family History Problem Relation Name Age of Onset Other (MVA) Mother Bone cancer Father Diabetes Father Heart disease Father Stroke Father Cancer Father Diabetes Sister Osteoarthritis Sister SURGICAL HISTORY Past Surgical History: Procedure Laterality Date APPENDECTOMY 08/2021 CARPAL TUNNEL RELEASE Bilateral RT 1998, LT 1999 DE QUERVAIN'S RELEASE INNER EAR SURGERY 2006 repair ear drum LAPAROSCOPY DIAGNOSTIC / BIOPSY / ASPIRATION / LYSIS TOTAL ABDOMINAL HYSTERECTOMY W/ BILATERAL SALPINGOOPHORECTOMY 1996 TYMPANOPLASTY 2006 ULNAR NERVE REPAIR Right 2002 WRIST SURGERY Left 2017 REVIEW OF SYSTEMS Review of Systems: Review of Systems Constitutional: Negative. HENT: Negative. Eyes: Negative. Respiratory: Negative. Cardiovascular: Negative. Gastrointestinal: Negative. Genitourinary: Negative. Musculoskeletal: Negative. Skin: Negative. Neurological: Negative. All other systems reviewed and are negative. Hematological: Negative. Endocrine: Negative. Allergic/Immunologic: Negative. OBJECTIVE Objective: Physical Exam Constitutional: Appearance: Normal appearance. She is well-developed. Genitourinary: Vulva normal. Vaginal cuff intact. Breasts: Breasts are soft. Right: Normal. Left: Normal. Cardiovascular: Rate and Rhythm: Normal rate and regular rhythm. Pulmonary: Effort: Pulmonary effort is normal. Breath sounds: Normal breath sounds. Abdominal: General: Bowel sounds are normal. There is no distension. Palpations: Abdomen is soft. Tenderness: There is no abdominal tenderness. There is no guarding or rebound. Musculoskeletal: General: No swelling. Normal range of motion. Right lower leg: No edema. Left lower leg: No edema. Neurological: Mental Status: She is alert and oriented to person, place, and time. Skin: General: Skin is warm and dry. Psychiatric: Mood and Affect: Mood normal. Behavior: Behavior normal. Vitals and nursing note reviewed. Exam conducted with a consultant present. Vitals: Estimated body mass index is 21.6 kg/m as calculated from the following: Height as of 05/28/24: 5' 5 . Weight as of this encounter: 129 lb 12.8 oz. BP: 124/74 No LMP recorded. ASSESSMENT & PLAN ICD-10-CM 1. Well woman exam with routine gynecological exam Z01.419 THIN PREP TIS PAP AND HR HPV DNA 2. Breast cancer screening by mammogram Z12.31 Bilateral screening mammogram Bilateral screening mammogram 3. Postmenopausal state Z78.0 DEXA bone density Annual Exam: Patient presents today for an annual exam. Patient states she is doing well and has no complaints. Pap was obtained without difficulty. Orders Placed This Encounter Procedures Bilateral screening mammogram DEXA bone density Follow Up: Patient is to return in one year for annual unless needed otherwise. Documented by Monica Silva NP on behalf of: Severo Curry DO documented in this encounter [facility] 05-28-2024 History of Present illness Narrative Patient: Xena Ewing : 1955 PCP: Anamika Valle MD SUBJECTIVE Patient presents today for follow up of skin lesion/neoplasm of unknown origin to the left and right foot Pt states that previous treatment of acid tx with some improvement Pt rates pain the pain on a 1-10 scale an intensity of 3 Pt presents today for followup. Patient presents today with a CC of elongated, thick nails. Pt states nails have been elongated and thick for many years and cause pain with ambulation in shoegear. Pt has tried previous treatment with minimal relief. Pt presents today for nail care and treatment. Allergies: Allergies Allergen Reactions Codeine Nausea Only [...] and right sub 3rd metatarsal region of 0.1 cm x 0.2 cm in the right sub 5th metatarsal region of 0.2 cm x 0.1 cm measuring VASC: Positive palpable pedal pulses bilaterally NEURO: Gross sensation intact to bilateral feet ORTHO: Positive pain on palpation to toenails of the left 1,2,3,4,5 toes and right 1,2,3,4,5 toes Positive pain on palpation to bilateral foot lesions ASSESSMENT 1. Pain due to onychomycosis of toenails of both feet 2. Verruca plantaris 3. Foot pain, right 4. Foot pain, left PLAN Discussed proper foot care with patient today. Debride nails in length and thickness digits 1 through 10 Application of salinocaine acid medication to lesion/lesions [...] Semaj Sanchez DPM documented in this encounter [facility] 04-09-2024 History of Present illness Narrative Patient: [...] Semaj Sanchez DPM documented in this encounter [facility] 03-19-2024 History of Present illness Narrative Patient: [...] pathological diagnosis of specimen. Patient may take [id number] NSAID p.r.n. for pain Application of salinocaine [...] Semaj Sanchez DPM documented in this encounter [facility] 02-06-2024 Evaluation + Plan note Diagnostic Tests Pendingvon Willebrand Factor (vWF) Ag 02/06/24Lupus Anticoagulant 02/06/24vWF Activity 02/06/24 [facility] 02-05-2024 Note General Surgery Offi [...] Father. Immunizations Vaccine Date Status SARS-CoV-2 (COVID-19) [id number] 12/19/2021 Recorded SARS-CoV-2 ( (more content not included)... [facility] Comment on above: Result Comment: Elec [...] limited to risks of scarring, darker or plant physiologist pigmentary changes, recurrence, incomplete removal and infection. [...] any new/changing lesions documented in this encounter [facility] 10-23-2022 Note HNO ID: [id number] Author: Claire Morales MD Service: ? Author [...] Bariatric Surgery cc: Referring provider Anamika Valle [facility] [facility] [id number] Medical Decision Making: Problems: Low: Stable chronic illness Data: Independent interpretation of test from other physician/QHCP Medical Decision Making Level: 3 - Low [facility] 10-23-2022 History of Present illness Narrative [...] Bariatric Surgery cc: Referring provider Anamika Valle [address] [place] [phone] Medical Decision Making: Problems: Low: Stable chronic illness Data: Independent interpretation of test from other physician/QHCP Medical Decision Making Level: 3 - Low documented in this encounter [facility] 08-31-2021 Note OPERATIVE NOTE OPERATION DATE: 08/31/2021 PREOPERATIVE DIAGNOSIS: Acute appendicitis. POSTOPERATIVE DIAGNOSIS: Acute appendicitis. PROCEDURE PERFORMED: Laparoscopic appendectomy. SURGEON: Elisabeth Rehman M.D. TOOTH POLISHER: PINA Corona ANESTHESIA: General, 0.5% Marcaine for [...] to the PACU in fair condition. [facility] Signed and Approved by: DR ELISABETH REHMAN . 09/15/2021 06:33:00 [facility] Evaluation + Plan note No data available for this section [facility] General Surgery [place] Evaluation note No assessment inform ation available [facility] Work Phone: Evaluation note Diagnosis Ventral hernia without obstruction or gangrene- Primary Ventral hernia, unspecified, without mention of obstruction or gangrene [facility] Other nonthrombocytopenic purpura (CMS/HCC)- Primary Actinic keratosis documented in this encounter [facility] HealthcareEvaluation note* Diagnosis Neoplasm of uncertain behavior of skin- Primary Verruca plantaris Plantar wart Foot pain, right Pain in soft tissues of limb Foot pain, left Pain in soft tissues of limb Pain due to onychomycosis of toenails of both feet documented in this encounter [facility] HealthcareEvaluation note* Diagnosis Verruca plantaris- Primary Plantar wart Foot pain, right Pain in soft tissues of limb Foot pain, left Pain in soft tissues of limb documented in this encounter [facility] HealthcareEvaluation note* Diagnosis Pain due to onychomycosis of toenails of both feet- Primary Verruca plantaris Plantar wart Foot pain, right Pain in soft tissues of limb Foot pain, left Pain in soft tissues of limb documented in this encounter [facility] HealthcareEvaluation note* Diagnosis Well woman exam with routine gynecological exam Routine gynecological examination Breast cancer screening by mammogram Postmenopausal state Asymptomatic postmenopausal status (age-related) (natural) [facility] No data available for this section [facility] Progress note No data available for this section 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 Advance Directives and Living Will Power of Senior Cyber Security Analyst Advance Directive Response Recorded Date/ Time Advance Directives No June 06, 2 018 3:52pm Chief Complaint and Reason for Visit Chief Complaint Screening Additional Source Comments INFORMATION SOURCE (unrecogn ized section and content) DATE CREATED AUTHOR 03/21/2018 [facility] DATE CREATED AUTHOR AUTHOR'S ORGANIZ ATION 10/14/2019 [facility] DATE CREATED AUTHOR AUTHOR'S ORGANIZ ATION 04/27/2022 [facility] DATE CREATED AUTHOR AUTHOR'S ORGANIZ ATION 10/27/2022 [facility] DATE CREATED AUTHOR AUTHOR'S ORGANIZ ATION 01/03/[address] [facility] DATE CREATED AUTHOR AUTHOR'S ORGANIZ ATION 02/08/2024 [facility] DATE CREATED AUTHOR AUTHOR'S ORGANIZ ATION 02/13/2024 [facility] DATE CREATED AUTHOR AUTHOR'S ORGANIZ ATION 04/19/2024 [facility] DATE CREATED AUTHOR AUTHOR'S ORGANIZ ATION 05/31/2024 [facility] Care Teams (unrecognized sec tion and content) Team Status: Active Member Role Status Dates Anamika Valle MD Primary Care Provider Active Team Status: Inactive Member Role Status Dates Anamika Valle MD Primary Care Provider Active Referral Self Attending Provider Active Manuscript Editor Relationship Specialty Start Date End Date Anamika Valle MD PCP - General 10/24/04 Anamika Valle MD [address] [place] [address] Referring Family Medicine 10/05/22 Manuscript Editor Relationship Specialty Start Date End Date Anamika Valle MD [address] [place] [address] PCP - General Family Medicine 09/21/22 Manuscript Editor Relationship Specialty Start Date End Date Anamika Valle MD [address] [place] [address] PCP - General Family Medicine 09/21/22 Team Status: Inactive Member Role Status Dates Anamika Valle MD Primary Care Provide r, Referring Provider Active Start: December 27, 2023 End: December 27, 2023 Referral Self Attending Provider Active Start: O ctober 2023 End: December 27, 2023 Manuscript Editor Relationship Specialty Start Date End Date Anamika Valle MD [address] [place] [address] PCP - General Family Medicine 09/21/22 Manuscript Editor Relationship Specialty Start Date End Date Anamika Valle MD [address] [place] [place] [address] PCP - General Family Medicine 09/21/22 Manuscript Editor Relationship Specialty Start Date End Date Anamika Valle MD [address] [place] [place] [address] PCP - General Family Medicine 09/21/22 Manuscript Editor Relationship Specialty Start Date End Date Anamika Valle MD [address] [place] [place] [address] PCP - General Family Medicine 09/21/22 Manuscript Editor Relationship Specialty Start Date End Date Anamika Valle MD [address] [place] [place] [address] PCP - General Family Medicine 09/21/22 Manuscript Editor Relationship Specialty Start Date End Date Anamika Valle MD [address] [place] [address] PCP - General Family Medicine 09/21/22 Goals [...] or prosecute any alcohol or drug abuse patient.[facility] Reason for Visit (unrecogniz ed section and content) Reason Comments New Patient Reason Comments Suspicious Skin Lesion Reason Comments Foot Callouses Bl callous Reason Comments Follow-up Rt lesion check Reason Comments Toenail Care Non dm nail care Reason Comments Well Women Visit FOR RECORDS PERTAINING TO PATIENTS WHO ARE [...] BE BASED ON THE PRIMARY CLINICAL RECORDS. [employer] [facility]. provides no warranty or guarantee of the accuracy or completeness of information in this document.
[2024-06-03 22:09] LABS: Age Gdln ACOG Testing Note (.); Pap IG (Image Guided) Note (.)
== END 2024-06-01 14:47 | disposition home or self-care (01) ==
LOC: LAB 14:46
PROVIDERS: PCP Family Medicine; Visit Provider Obstetrics & Gynecology
DX: Z01.419 Encounter for gynecological examination (general) (routine) without abnormal findings (principal)
CPT/HCPCS: 88175

== ENCOUNTER 2024-09-28 09:18 | Outpatient (OUT) | payer MEDICARE, SELFPAY ==
--- OUTSIDE RECORDS SUMMARY | 2024-09-28 09:39 | XMS_ITS | CCD ---
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 Date: 2022-01-05 15:25 Normal [facility] T4, T3U, FTI LABCORPon 11-10 Free Thyroxine Index 2.0 Normal 1.2-4.9 [facility] Comment on above: Performed By: #### T HYLC ####[facility] [address] [address]Dr. Kayy Virgen T3 Uptake 26 % Normal 24-39 [facility] Comment on above: Performed By: #### T HYLC ####[facility] [address] [place], [place] [address]Dr. Kayy Virgen T4 [Mass/Vol] 7.5 ug/dL Normal 4.5-12.0 [facility] Comment on above: Performed By: #### T HYLC ####[facility] [address] [address]Dr. Kayy Virgen CBC AUTO DIFFon 11-09-2021 BASO # 0.1 103/ul Normal 0.0-0.1 [facility] Comment on above: Performed By: #### C BC ####[facility] [address] [place], [place] [address]Dr. Kayy Virgen Basophils/100 WBC (Bld) 2.1 % Critically high 0.2-2.0 [facility] Comment on above: Performed By: #### C BC ####[facility] [address] [address]Dr. Kayy Virgen EO # 0.2 103/ul Normal 0.0-0.7 [facility] Comment on above: Performed By: #### C BC ####[facility] [address] [place], [place] [address]Dr. Kayy Virgen Eosinophils/100 WBC (Bld) 5.1 % Normal 0.9-7.0 [facility] Comment on above: Performed By: #### C BC ####[facility] [address] [place], [place] [address]Dr. Kayy Virgen Erythrocyte distribution width (RBC) [Ratio] 14.6 % Normal 11.0-15.0 [facility] Comment on above: Performed By: #### C BC ####[facility] [address] [place], [place] [address]Dr. Kayy Virgen Hematocrit (Bld) [Volume fraction] 38.5 % Normal 36.0-48.0 [facility] Comment on above: Performed By: #### C BC ####[facility] [address] [place], [place] [address]Dr. Kayy Virgen Hemoglobin (Bld) [Mass/Vol] 12.4 g/dL Normal 12.0-16.0 [facility] Comment on above: Performed By: #### C BC ####[facility] [address] [place], [place] [address]Dr. Kayy Virgen IG # 0.01 10e3/ul Normal 0.00-0.03 [facility] Comment on above: Performed By: #### C BC ####[facility] [address] [place], [place] [address]Dr. Kayy Virgen IG % 0.2 % Normal 0.0-0.5 [facility] Comment on above: Performed By: #### C BC ####[facility] [address] [place], [place] [address]Dr. Kayy Virgen LYMPH # 1.5 103/ul Normal 1.2-3.8 [facility] Comment on above: Performed By: #### C BC ####[facility] [address] [place], [place] [address]Dr. Kayy Virgen Lymphocytes/100 WBC (Bld) 33.7 % Normal 20.5-60.0 [facility] Comment on above: Performed By: #### C BC ####[facility] [address] [place], [place] [address]Dr. Kayy Virgen MANUAL DIFF REQ NO Normal [facility] Comment on above: Performed By: #### C BC ####[facility] [address] [id number]. Kayy Param MCH (RBC) [Entitic mass] 26.7 pg Normal 26.7-34.0 [facility] Comment on above: Performed By: #### C BC ####[facility] [address] [id number]. Kayy Virgen MCHC (RBC) [Mass/Vol] 32.2 g/dL Normal 29.9-35.2 [facility] Comment on above: Performed By: #### C BC ####[facility] [address] [id number]. Shereesamia Virgen MCV (RBC) [Entitic vol] 82.8 fL Normal 81.0-99.0 [facility] Comment on above: Performed By: #### C BC ####[facility] [address] [place], [place] [address]Dr. Kayy Virgen MONO # 0.5 103/ul Normal 0.3-0.8 [facility] Comment on above: Performed By: #### C BC ####[facility] [address] [place], [place] [address]Dr. Shereesamia Virgen Monocytes/100 WBC (Bld) 11.9 % Normal 1.7-12.0 [facility] Comment on above: Performed By: #### C BC ####[facility] [address] [place], [place] [address]Dr. Shereesamia Virgen NEUT # 2.0 103/ul Normal 1.4-6.5 [facility] Comment on above: Performed By: #### C BC ####[facility] [address] [place], [place] [id number]. Kayy Virgen Neutrophils/100 WBC (Bld) 47.0 % Normal 43.0-75.0 [facility] Comment on above: Performed By: #### C BC ####[facility] [address] [place], [place] [address]Dr. Kayy Virgen Platelet mean volume (Bld) [Entitic vol] 9.7 fL Normal 9.5-13.5 [facility] Comment on above: Performed By: #### C BC ####[facility] [address] [place], [place] [address]Lt. Kayy Virgen PLT 269 103/ul Normal 150-450 [facility] Comment on above: Performed By: #### C BC ####[facility] [address] [place], [place] [address]Eu. Kayy Virgen RBC 4.65 106/ul Normal 4.20-5.40 [facility] Comment on above: Performed By: #### C BC ####[facility] [address] [place], [place] [address]Bl. Kayy Virgen WBC 4.3 103/ul Normal 4.0-11.0 [facility] Comment on above: Performed By: #### C BC ####[facility] [address] [id number] Virgen GLYCOHEMOGLOBIN A1Con 2021 ADA RECOMMENDATION SEE BELOW Normal [facility] Comment on above: Result Comment: ADA RECOMMENDED LIMIT 4.0 - 6.0 ADA THERAPEUTIC TARGET < 7.0 ACTION SUGGESTED > 7.0 Performed By: #### A 1C #### [facility] [address] [address] [address] Kayy Virgen Glucose [Mass/Vol] 117 mg/dL Normal [facility] Comment on above: Performed By: #### A 1C #### [facility] [address] [address] [address] Kayy Virgen HbA1c (Bld) [Mass fraction] 5.7 % Normal 4.5-6.2 [facility] Comment on above: Performed By: #### A 1C #### [facility] [address] [address] [address] Kayy Virgen IRONon 11-09-2021 Iron [Mass/Vol] 100.0 ug/dL Normal 50.0-170.0 [facility] Comment on above: Performed By: #### I STEPHANI #### [facility] [address] [address] [address] Kayy Virgen PROF 14(COMP METB)on 08-25-2 022 Albumin [Mass/Vol] 4.0 g/dL Normal 3.4-5.0 [facility] Comment on above: Performed By: #### C MP, TSH #### [facility] [address] [place] [address] Dr. Kayy Virgen Albumin/Globulin [Mass ratio] 1.1 {ratio} Normal [facility] Comment on above: Performed By: #### C MP, TSH #### [facility] [address] [address] [address] Kayy Virgen ALP [Catalytic activity/Vol] 109 U/L Normal 46-116 [facility] Comment on above: Performed By: #### C MP, TSH #### [facility] [address] [place] [address] Dr. Kayy Virgen ALT [Catalytic activity/Vol] 26 U/L Normal 14-59 [facility] Comment on above: Performed By: #### C MP, TSH #### [facility] [address] [place] [address] Dr. Kayy Virgen Anion gap [Moles/Vol] 11.2 mmol/L Normal [facility] Comment on above: Performed By: #### C MP, TSH #### [facility] [address] [place] [address] Dr. Kayy Virgen AST [Catalytic activity/Vol] 58 U/L Critically high 15-37 [facility] Comment on above: Performed By: #### C MP, TSH #### [facility] [address] [place] [address] Dr. aKyy Virgen Bilirubin [Mass/Vol] 0.4 mg/dL Normal 0.2-1.0 [facility] Comment on above: Performed By: #### C MP, TSH #### [facility] [address] [place] [address] Dr. Kayy Virgen Calcium [Mass/Vol] 9.8 mg/dL Normal 8.5-10.1 [facility] Comment on above: Performed By: #### C MP, TSH #### [facility] [address] [place] [address] Dr. Kayy Virgen Chloride [Moles/Vol] 103 mmol/L Normal 98-107 [facility] Comment on above: Performed By: #### C MP, TSH #### [facility] [address] [address] [address] Kayy Virgen CO2 [Moles/Vol] 28.2 mmol/L Normal 21.0-32.0 [facility] Comment on above: Performed By: #### C MP, TSH #### [facility] [address] [address] [address] Kayy Virgen Creatinine [Mass/Vol] 0.98 mg/dL Normal 0.55-1.02 [facility] Comment on above: Performed By: #### C MP, TSH #### [facility] [address] [address] [address] Kayy Virgen EGFR-AF MARTINIQUAIS >60 Normal >=60 [facility] Comment on above: Performed By: #### C MP, TSH #### [facility] [address] [address] [address] Kayy Virgen EGFR-NON AF MARTINIQUAIS 57 mL/min/1.73m2 Critically low >=60 [facility] Comment on above: Performed By: #### C MP, TSH #### [facility] [address] [address] [address] Kayy Virgen Globulin (S) [Mass/Vol] 3.8 g/dL Normal [facility] Comment on above: Performed By: #### C MP, TSH #### [facility] [address] [address] [address] Kayy Virgen Glucose [Mass/Vol] 102 mg/dL Normal 74-106 [facility] Comment on above: Performed By: #### C MP, TSH #### [facility] [address] [address] [address] Kayy Virgen Potassium [Moles/Vol] 4.4 mmol/L Normal 3.5-5.1 [facility] Comment on above: Performed By: #### C MP, TSH #### [facility] [address] [address] [address] Kayy Virgen Protein [Mass/Vol] 7.8 g/dL Normal 6.4-8.2 [facility] Comment on above: Performed By: #### C MP, TSH #### [facility] [address] [address] [address] Kayy Virgen Sodium [Moles/Vol] 138 mmol/L Normal 136-145 [facility] Comment on above: Performed By: #### C MP, TSH #### [facility] [address] [address] [address] Kayy Virgen Urea nitrogen [Mass/Vol] 22.0 mg/dL Critically high 7.0-18.0 [facility] Comment on above: Performed By: #### C MP, TSH #### [facility] [address] [place] [address] Dr. Kayy Virgen Urea nitrogen/Creatinine [Mass ratio] 22.4 mg/mg Normal [facility] Comment on above: Performed By: #### C MP, TSH #### [facility] [address] [address] [address] Kayy Virgen TSHon 11-09-2021 TSH 1.200 uIU/mL Normal 0.358-3.740 [facility] Comment on above: Performed By: #### C MP, TSH #### [facility] [address] [place] [address] Dr. Kayy Virgen AMYLASEon 08-31-2021 Amylase [Catalytic activity/Vol] 34 U/L Normal 25-115 [facility] Comment on above: Performed By: #### A MY, CMP, LIPA ####[facility] [address] [address]Dr. Kayy Virgen CBC AUTO DIFFon 08-31-2021 BASO # 0.1 103/ul Normal 0.0-0.1 [facility] Comment on above: Performed By: #### C BC ####[facility] [address] [address]Dr. Kayy Virgen Basophils/100 WBC (Bld) 0.8 % Normal 0.2-2.0 [facility] Comment on above: Performed By: #### C BC ####[facility] [address] [id number]. Kayy Virgen EO # 0.0 103/ul Normal 0.0-0.7 [facility] Comment on above: Performed By: #### C BC ####[facility] [address] [id number]. Kayy Virgen Eosinophils/100 WBC (Bld) 0.6 % Critically low 0.9-7.0 [facility] Comment on above: Performed By: #### C BC ####[facility] [address] [place], [place] [address]Dr. Kayy Virgen Erythrocyte distribution width (RBC) [Ratio] 13.9 % Normal 11.0-15.0 [facility] Comment on above: Performed By: #### C BC ####[facility] [address] [place], [place] [address]Dr. Kayy Virgen Hematocrit (Bld) [Volume fraction] 37.7 % Normal 36.0-48.0 [facility] Comment on above: Performed By: #### C BC ####[facility] [address] [place], [place] [address]Dr. Kayy Virgen Hemoglobin (Bld) [Mass/Vol] 12.3 g/dL Normal 12.0-16.0 [facility] Comment on above: Performed By: #### C BC ####[facility] [address] [place], [place] [address]Dr. Kayy Virgen IG # 0.02 10e3/ul Normal 0.00-0.03 [facility] Comment on above: Performed By: #### C BC ####[facility] [address] [place], [place] [address]Dr. Kayy Virgen IG % 0.3 % Normal 0.0-0.5 [facility] Comment on above: Performed By: #### C BC ####[facility] [address] [place], [place] [address]Dr. Kayy Virgen LYMPH # 1.4 103/ul Normal 1.2-3.8 [facility] Comment on above: Performed By: #### C BC ####[facility] [address] [address]Dr. Kayy Virgen Lymphocytes/100 WBC (Bld) 20.8 % Normal 20.5-60.0 [facility] Comment on above: Performed By: #### C BC ####[facility] [address] [id number]. Shereesamia Virgen MANUAL DIFF REQ NO Normal [facility] Comment on above: Performed By: #### C BC ####[facility] [address] [id number]. Kayy Param MCH (RBC) [Entitic mass] 26.9 pg Normal 26.7-34.0 [facility] Comment on above: Performed By: #### C BC ####[facility] [address] [place], [place] [address]Dr. Kayy Param MCHC (RBC) [Mass/Vol] 32.6 g/dL Normal 29.9-35.2 [facility] Comment on above: Performed By: #### C BC ####[facility] [address] [id number]. Kayy Param MCV (RBC) [Entitic vol] 82.5 fL Normal 81.0-99.0 [facility] Comment on above: Performed By: #### C BC ####[facility] [address] [place], [place] [address]Dr. Shereesamia Param MONO # 0.6 103/ul Normal 0.3-0.8 [facility] Comment on above: Performed By: #### C BC ####[facility] [address] [place], [place] [address]Dr. Shereesamia Virgen Monocytes/100 WBC (Bld) 8.8 % Normal 1.7-12.0 [facility] Comment on above: Performed By: #### C BC ####[facility] [address] [place], [place] [address]Dr. Kayy Virgen NEUT # 4.5 103/ul Normal 1.4-6.5 [facility] Comment on above: Performed By: #### C BC ####[facility] [address] [id number]. Kayy Virgen Neutrophils/100 WBC (Bld) 68.7 % Normal 43.0-75.0 [facility] Comment on above: Performed By: #### C BC ####[facility] [address] [id number]. Kayy Virgen Platelet mean volume (Bld) [Entitic vol] 10.2 fL Normal 9.5-13.5 [facility] Comment on above: Performed By: #### C BC ####[facility] [address] [id number]. Kayy Virgen PLT 265 103/ul Normal 150-450 [facility] Comment on above: Performed By: #### C BC ####[facility] [address] [address]Dr. Kayy Virgen RBC 4.57 106/ul Normal 4.20-5.40 [facility] Comment on above: Performed By: #### C BC ####[facility] [address] [address]Dr. Kayy Virgen WBC 6.5 103/ul Normal 4.0-11.0 [facility] Comment on above: Performed By: #### C BC ####[facility] [address] [id number]. Kayy Virgen CT ABD/PELVIS WO CONon 08-31 [...] DANNA CASTLE Date: 2021-08-31 12:25 Normal [facility] ER URINE PROFILEon 2 Bilirubin Ql (U) Negative Normal NEGATIVE [facility] Comment on above: Performed By: #### E RUR #### [facility] [address] [place] [address] Dr. Kayy Virgen Clarity (U) CLEAR Normal CLEAR [facility] Comment on above: Performed By: #### E RUR #### [facility] [address] [place] [address] Dr. Kayy Virgen Color (U) LT. YELLOW Normal YELLOW [facility] Comment on above: Performed By: #### E RUR #### [facility] [address] [place] [address] Dr. Kayy IRBYKathy A micrscopic examination will be performed if indicated. Normal [facility] Comment on above: Performed By: #### E RUR #### [facility] [address] [place] [address] Dr. Kayy Virgen Glucose Ql (U) Negative Normal NEGATIVE [facility] Comment on above: Performed By: #### E RUR #### [facility] [address] [place] [address] Dr. Kayy Virgen Hemoglobin Ql (U) Negative Normal NEGATIVE [facility] Comment on above: Performed By: #### E RUR #### [facility] [address] [address] [address] Kayy Virgen Ketones Ql (U) Negative Normal NEGATIVE [facility] Comment on above: Performed By: #### E RUR #### [facility] [address] [place] [address] Dr. Kayy Virgen LEUKOCYTES Negative Normal NEGATIVE [facility] Comment on above: Performed By: #### E RUR #### [facility] [address] [place] [address] Dr. Kayy Virgen Nitrite Ql (U) Negative Normal NEGATIVE [facility] Comment on above: Performed By: #### E RUR #### [facility] [address] [place] [address] Dr. Kayy Virgen pH (U) 6.0 [pH] Normal 5-9 [facility] Comment on above: Performed By: #### E RUR #### [facility] [address] [place] [address] Dr. Kayy Virgen SPEC GRAVITY <=1.005 Abnormal 1.005-<=1.02 5 [facility] Comment on above: Performed By: #### E RUR #### [facility] [address] [place] [address] Dr. Kayy Virgen UA PROTEIN Negative Normal NEGATIVE/ TRACE [facility] Comment on above: Performed By: #### E RUR #### [facility] [address] [place] [address] Dr. Kayy Virgen UR MICRO IND NOT INDICATED Normal [facility] Comment on above: Performed By: #### E RUR #### [facility] [address] [place] [address] Dr. Kayy Virgen Urobilinogen Qn (U) 0.2 {Cuauhtemoc'U}/dL Normal 0.2 - 1. 0 [facility] Comment on above: Performed By: #### E RUR #### [facility] [address] [place] [address] Dr. Kayy Virgen LIPASEon 08-31-2021 Lipase [Catalytic activity/Vol] 73.0 U/L Normal 73.0-393.0 [facility] Comment on above: Performed By: #### A MY, CMP, LIPA #### [facility] [address] [address] [address] Kayy Virgen PROF 14(COMP METB)on 022 Albumin [Mass/Vol] 3.6 g/dL Normal 3.4-5.0 [facility] Comment on above: Performed By: #### A MY, CMP, LIPA ####[facility] [address] [address]Dr. Kayy Virgen Albumin/Globulin [Mass ratio] 0.9 {ratio} Normal [facility] Comment on above: Performed By: #### A MY, CMP, LIPA ####[facility] [address] [address]Dr. Kayy Virgen ALP [Catalytic activity/Vol] 98 U/L Normal 46-116 [facility] Comment on above: Performed By: #### A MY, CMP, LIPA ####[facility] [address] [address]Dr. Kayy Virgen ALT [Catalytic activity/Vol] 22 U/L Normal 14-59 [facility] Comment on above: Performed By: #### A MY, CMP, LIPA ####[facility] [address] [address]Dr. Kayy Virgen Anion gap [Moles/Vol] 12.6 mmol/L Normal [facility] Comment on above: Performed By: #### A MY, CMP, LIPA ####[facility] [address] [address]Dr. Kayy Virgen AST [Catalytic activity/Vol] 44 U/L Critically high 15-37 [facility] Comment on above: Performed By: #### A MY, CMP, LIPA ####[facility] [address] [address]Dr. Kayy Virgen Bilirubin [Mass/Vol] 0.5 mg/dL Normal 0.2-1.0 [facility] Comment on above: Performed By: #### A MY, CMP, LIPA ####[facility] [address] [address]Dr. Kayy Virgen Calcium [Mass/Vol] 9.2 mg/dL Normal 8.5-10.1 [facility] Comment on above: Performed By: #### A MY, CMP, LIPA ####[facility] [address] [place], [place] [address]Dr. Kayy Virgen Chloride [Moles/Vol] 104 mmol/L Normal 98-107 [facility] Comment on above: Performed By: #### A MY, CMP, LIPA ####[facility] [address] [place], [place] [address]Dr. Kayy Virgen CO2 [Moles/Vol] 24.3 mmol/L Normal 21.0-32.0 [facility] Comment on above: Performed By: #### A MY, CMP, LIPA ####[facility] [address] [place], [place] [address]Dr. Kayy Virgen Creatinine [Mass/Vol] 0.87 mg/dL Normal 0.55-1.02 [facility] Comment on above: Performed By: #### A MY, CMP, LIPA ####[facility] [address] [place], [place] [address]Dr. Kayy Virgen EGFR-AF MARTINIQUAIS >60 Normal >=60 [facility] Comment on above: Performed By: #### A MY, CMP, LIPA ####[facility] [address] [place], [place] [address]Dr. Kayy Virgen EGFR-NON AF MARTINIQUAIS >60 Normal >=60 [facility] Comment on above: Performed By: #### A MY, CMP, LIPA ####[facility] [address] [place], [place] [address]Dr. Kayy Virgen Globulin (S) [Mass/Vol] 4.0 g/dL Normal [facility] Comment on above: Performed By: #### A MY, CMP, LIPA ####[facility] [address] [place], [place] [address]Dr. Kayy Virgen Glucose [Mass/Vol] 96 mg/dL Normal 74-106 [facility] Comment on above: Performed By: #### A MY, CMP, LIPA ####[facility] [id number] [place], [place] [address]Zt. Kayy Virgen Potassium [Moles/Vol] 3.9 mmol/L Normal 3.5-5.1 [facility] Comment on above: Performed By: #### A MY, CMP, LIPA ####[facility] [id number] [place] [id number]. Kayy Virgen Protein [Mass/Vol] 7.6 g/dL Normal 6.4-8.2 [facility] Comment on above: Performed By: #### A MY, CMP, LIPA ####[facility] [id number] [place] [id number]. Kayy Virgen Sodium [Moles/Vol] 137 mmol/L Normal 136-145 [facility] Comment on above: Performed By: #### A MY, CMP, LIPA ####[facility] [id number] [place] [id number]. Kayy Virgen Urea nitrogen [Mass/Vol] 11.0 mg/dL Normal 7.0-18.0 [facility] Comment on above: Performed By: #### A MY, CMP, LIPA ####[facility] [id number] [place] [id number]. Kayy Virgen Urea nitrogen/Creatinine [Mass ratio] 12.6 mg/mg Normal [facility] Comment on above: Performed By: #### A MY, CMP, LIPA ####[facility] [id number] [place] [id number]. Kayy Virgen US THYROID FN ASP BXon 07-05 US THYROID FN ASP BX Begin Addendum #1 COLLECTED DATE/TIME: 06/29/2021 13:56 EDT Final Diagnosis Report for [facility] [place] (A/B) RIGHT THYROID NODULE; FINE NEEDLE [...] (FNA). 2. Pathology results are pending. Normal [facility] US THYROIDon 06-21-2021 US THYROID [...] nodule. Fine needle aspiration recommended TI-RADS: The [employer] TI-RADS committee's white paper recommendations for thyroid lesions classified as TR4 (moderately suspicious) are listed below: > 1.0 cm. Follow-up ultrasound in 1, 2, 3, and 5 years. > 1.5 cm. FNA. J. Am Anais Radiol 2017;14:[id number]. Electronically authenticated by: ENIO MOHAN Date: 2021-06-21 12:10 Normal [facility] US CAROTID ART BILon 022 [...] by: DANNA CASTLE Date: 2021-06-08 13:16 Normal [facility] Blood Occult Stool Screen #1 on 10-13-2019 Date, Stool #1 [id number] [facility] [place], [place] Date, Stool #2 [...] 2019 Occult Blood 1 Negative Normal NEG [facility] Comment on above: Performed By: #### O BN #### [facility] [address] [place] [address] Wellness Nurse: Elisabeth Worthy MD Specimen 1 Date [facility] Comment on above: Performed By: #### O BN #### [facility] [address] [place] [address] Wellness Nurse: Elisabeth Worthy MD Specimen 1 Time 1199 [facility] Comment on above: Performed By: #### O BN #### [facility] [address] [place] [address] Wellness Nurse: Elisabeth Worthy MD Specimen 2 Date NOT REPORTED Normal [facility] Comment on above: Performed By: #### O BN #### [facility] [address] [place], [place] [id number] Wellness Nurse: Elisabeth Worthy MD Specimen 2 Time NOT REPORTED Normal [facility] Comment on above: Performed By: #### O BN #### [facility] [address] [place], [place] [phone] Wellness Nurse: Elisabeth Worthy MD Specimen 3 Date NOT REPORTED Normal [facility] Comment on above: Performed By: #### O BN #### [facility] [address] [place], [place] [phone] Wellness Nurse: Elisabeth Worthy MD Specimen 3 Time NOT REPORTED Normal [facility] Comment on above: Performed By: #### O BN #### [facility] [address] [place], [place] [phone] Wellness Nurse: Elisabeth Worthy MD Occult Blood 2 NOT REPORTED Normal NEG [facility] Comment on above: Performed By: #### O BN #### [facility] [address] [place], [place] [phone] Wellness Nurse: Elisabeth Worthy MD Occult Blood 3 NOT REPORTED Normal NEG [facility] Comment on above: Performed By: #### O BN #### [facility] [address] [place], [place] [phone] Wellness Nurse: Elisabeth Worthy MD Free Thyroxine Indexon 10-07 FTI Ratio 2.0 ug/dL Normal 1.4-3.1 [facility] Comment on above: Performed By: #### F TI, FE #### [facility] [address] [place] [address] Wellness Nurse: Otoinel Ash MD #### TSH, LIPR, CP, GLYHGB, CDP #### [facility] [address] [place], [place] [phone] Wellness Nurse: Elisabeth Worthy MD T4 [Mass/Vol] 29.74 % Normal 22.5-37.0 [facility] Comment on above: Performed By: #### F TI, FE #### [address] [address] Wellness Nurse: Otoniel Ash MD #### TSH, LIPR, CP, GLYHGB, CDP #### [address] [place] [phone] Wellness Nurse: Elisabeth Worthy MD T4 [Mass/Vol] 6.6 ug/dL Normal 4.5-10.9 [facility] Comment on above: Performed By: #### F TI, FE #### [address] [phone] Wellness Nurse: Otoniel Ash MD #### TSH, LIPR, CP, GLYHGB, CDP #### [address] [place] [phone] Wellness Nurse: Elisabeth Worthy MD Ironon 10-08-2019 Iron [Mass/Vol] 73 ug/dL Normal 37-145 [facility] Comment on above: Performed By: #### F TI, FE #### [address] [phone] Wellness Nurse: Otoniel Ash MD #### TSH, LIPR, CP, GLYHGB, CDP #### [address] [place] [phone] Wellness Nurse: Elisabeth Worthy MD T3 uptake and FTIon 10-08-19 Free Thyroxine Index 2 ug/dL 1.4 - 3 .1 ug/dL [place] T4 [Mass/Vol] 29.74 % 22.5 - 37 % [place] T4, Total 6.6 ug/dL 4.5 - 10.9 ug/dL [place] CBC Auto Differentialon 09-16-2019 Basophils (Bld) [#/Vol] 0.07 10*3/uL [place] Basophils/100 WBC (Bld) 1 % 0 - 2 % [place] Differential Type NOT REPORTED [place] Eosinophils (Bld) [#/Vol] 0.06 10*3/uL [place] Eosinophils/100 WBC (Bld) 1 % 1 - 4 % [place] Erythrocyte distribution width (RBC) [Ratio] 14.5 % High 11.8 - 14.4 % [place] Hematocrit (Bld) [Volume fraction] 42.4 % 36.3 - 47.1 % [place] Hemoglobin (Bld) [Mass/Vol] 13.2 g/dL 11.9 - 15.1 g/dL [place] Immature granulocytes (Bld) [#/Vol] 10*3/uL [place] Immature granulocytes (Bld) [#/Vol] 0 % 0 [place] Interpretation and review of laboratory results Abnormal [place] Lymphocytes (Bld) [#/Vol] 1.87 10*3/uL [place] Lymphocytes/100 WBC (Bld) 33 % 24 - 43 % [place] MCH (RBC) [Entitic mass] 26.1 pg 25.2 - 33.5 pg [place] MCHC (RBC) [Mass/Vol] 31.1 g/dL 28.4 - 34.8 g/dL [place] MCV (RBC) [Entitic vol] 84.0 fL 82.6 - 102.9 fL [place] Monocytes (Bld) [#/Vol] 0.45 10*3/uL [place] Monocytes/100 WBC (Bld) 8 % 3 - 12 % [place] Platelet mean volume (Bld) [Entitic vol] 10.1 fL 8.1 - 13.5 fL [place] Platelets (Bld) [#/Vol] 270 10*3/uL [place] Platelets (Bld) [#/Vol] NOT REPORTED [place] RBC (Bld) [#/Vol] 5.05 10*6/uL 3.95 - 5.1 1 m/uL [place] RBC morphology finding Nom (Bld) NOT REPORTED [place] Segmented neutrophils/100 WBC (Bld) 57 % 36 - 65 % [place] Segs Absolute 3.17 [place] WBC (Bld) [#/Vol] 5.6 10*3/uL [place] WBC (Bld) [#/Vol] 0.0 10*3/uL 0.0 per 10 0 WBC [place] WBC Morphology NOT REPORTED [place] CBC with Diffon 10-07-2019 Abs. Basophil 0.07 k/uL Normal 0.00-0.20 [facility] Comment on above: Performed By: #### F TI, FE #### [address] [phone] Wellness Nurse: Otoniel Ash MD #### TSH, LIPR, CP, GLYHGB, CDP #### [facility] [address] [place] [address] Wellness Nurse: Elisabeth Worthy MD Abs.Imm.Granulocyte <0.03 Normal 0.00-0.30 [facility] Comment on above: Performed By: #### F TI, FE #### [address] [phone] Wellness Nurse: Otoniel Ash MD #### TSH, LIPR, CP, GLYHGB, CDP #### [facility] [address] [place] [address] Wellness Nurse: Elisabeth Worthy MD Abs.Neutrophil (Seg) 3.17 k/uL Normal 1.50-8.[address] [facility] Comment on above: Performed By: #### F TI, FE #### [address] [address] Wellness Nurse: Otoniel Ash MD #### TSH, LIPR, CP, GLYHGB, CDP #### [facility] [address] [place] [phone] Wellness Nurse: Elisabeth Worthy MD Basophils/100 WBC (Bld) 1 % Normal 0-2 [facility] Comment on above: Performed By: #### F TI, FE #### [address] [phone] Wellness Nurse: Otoniel Ash MD #### TSH, LIPR, CP, GLYHGB, CDP #### [address] [place] [phone] Wellness Nurse: Elisabeth Worthy MD Eosinophils (Bld) [#/Vol] 0.06 10*3/uL Normal 0.00-0.44 [facility] Comment on above: Performed By: #### F TI, FE #### [place] [address] Wellness Nurse: Otoniel Ash MD #### TSH, LIPR, CP, GLYHGB, CDP #### [address] [place] [phone] Wellness Nurse: Elisabeth Worthy MD Eosinophils/100 WBC (Bld) 1 % Normal 1-4 [facility] Comment on above: Performed By: #### F TI, FE #### [place] [address] Wellness Nurse: Otoniel Ash MD #### TSH, LIPR, CP, GLYHGB, CDP #### [address] [place] [phone] Wellness Nurse: Elisabeth Worthy MD Erythrocyte distribution width (RBC) [Ratio] 14.5 % High 11.8-14.4 [facility] Comment on above: Performed By: #### F TI, FE #### [address] [phone] Wellness Nurse: Otoniel Ash MD #### TSH, LIPR, CP, GLYHGB, CDP #### [address] [place] [phone] Wellness Nurse: Elisabeth Worthy MD Hematocrit (Bld) [Volume fraction] 42.4 % Normal 36.3-47.1 [facility] Comment on above: Performed By: #### F TI, FE #### [address] [phone] Wellness Nurse: Otoniel Ash MD #### TSH, LIPR, CP, GLYHGB, CDP #### [address] [place] [phone] Wellness Nurse: Elisabeth Worthy MD Hemoglobin (Bld) [Mass/Vol] 13.2 g/dL Normal 11.9-15.1 [facility] Comment on above: Performed By: #### F TI, FE #### [address] [phone] Wellness Nurse: Otoniel Ash MD #### TSH, LIPR, CP, GLYHGB, CDP #### [address] [place] [phone] Wellness Nurse: Elisabeth Worthy MD Immature granulocytes (Bld) [#/Vol] 0 % Normal 0 [facility] Comment on above: Performed By: #### F TI, FE #### [address] [phone] Wellness Nurse: Otoniel Ash MD #### TSH, LIPR, CP, GLYHGB, CDP #### [address] [place] [phone] Wellness Nurse: Elisabeth Worthy MD Lymphocytes (Bld) [#/Vol] 1.87 10*3/uL Normal 1.10-3.70 [facility] Comment on above: Performed By: #### F TI, FE #### [address] [phone] Wellness Nurse: Otoniel Ash MD #### TSH, LIPR, CP, GLYHGB, CDP #### [address] [place], [place] [phone] Wellness Nurse: Elisabeth Worthy MD Lymphocytes/100 WBC (Bld) 33 % Normal 24-43 [facility] Comment on above: Performed By: #### F TI, FE #### [address] [phone] Wellness Nurse: Otoniel Ash MD #### TSH, LIPR, CP, GLYHGB, CDP #### [address] [place], [place] [phone] Wellness Nurse: Elisabeth Worthy MD MCH (RBC) [Entitic mass] 26.1 pg Normal 25.2-33.5 [facility] Comment on above: Performed By: #### F TI, FE #### [address] [phone] Wellness Nurse: Otoniel Ash MD #### TSH, LIPR, CP, GLYHGB, CDP #### [address] [place] [address] Wellness Nurse: Elisabeth Worthy MD MCHC (RBC) [Mass/Vol] 31.1 g/dL Normal 28.4-34.8 [facility] Comment on above: Performed By: #### F TI, FE #### [address] [phone] Wellness Nurse: Otoniel Ash MD #### TSH, LIPR, CP, GLYHGB, CDP #### [address] [place] [address] Wellness Nurse: Elisabeth Worthy MD MCV (RBC) [Entitic vol] 84.0 fL Normal 82.6-102.9 [facility] Comment on above: Performed By: #### F TI, FE #### [address] [address] Wellness Nurse: Otoniel Ash MD #### TSH, LIPR, CP, GLYHGB, CDP #### [facility] [address] [place] [address] Dr. [place], [place] [phone] Wellness Nurse: Elisabeth Worthy MD Monocytes (Bld) [#/Vol] 0.45 10*3/uL Normal 0.10-1.20 [facility] Comment on above: Performed By: #### F TI, FE #### [address] [address] Wellness Nurse: Otoniel Ash MD #### TSH, LIPR, CP, GLYHGB, CDP #### [address] [place] [phone] Wellness Nurse: Elisabeth Worthy MD Monocytes/100 WBC (Bld) 8 % Normal 3-12 [facility] Comment on above: Performed By: #### F TI, FE #### [address] [address] Wellness Nurse: Otoniel Ash MD #### TSH, LIPR, CP, GLYHGB, CDP #### [address] [place], [place] [phone] Wellness Nurse: Elisabeth Worthy MD Neutrophil (Seg) 57 % Normal 36-65 [facility] Comment on above: Performed By: #### F TI, FE #### [address] [address] Wellness Nurse: Otoniel Ash MD #### TSH, LIPR, CP, GLYHGB, CDP #### [address] [place], [place] [phone] Wellness Nurse: Elisabeth Worthy MD NRBC Automated 0.0 per 100 WBC Normal 0.0 [facility] Comment on above: Performed By: #### F TI, FE #### [address] [address] Wellness Nurse: Otoniel Ash MD #### TSH, LIPR, CP, GLYHGB, CDP #### [facility] [address] [place] [address] Dr. [place], [place] [phone] Wellness Nurse: Elisabeth Worthy MD Platelet mean volume (Bld) [Entitic vol] 10.1 fL Normal 8.1-13.5 [facility] Comment on above: Performed By: #### F TI, FE #### [address] [address] Wellness Nurse: Otoniel Ash MD #### TSH, LIPR, CP, GLYHGB, CDP #### [address] [place] [phone] Wellness Nurse: Elisabeth Worthy MD Platelets (Bld) [#/Vol] 270 10*3/uL Normal 138-453 [facility] Comment on above: Performed By: #### F TI, FE #### [address] [address] Wellness Nurse: Otoniel Ash MD #### TSH, LIPR, CP, GLYHGB, CDP #### [facility] [address] [place] [address] Dr. [place] [phone] Wellness Nurse: Elisabeth Worthy MD RBC (Bld) [#/Vol] 5.05 10*6/uL Normal 3.95-5.11 [facility] Comment on above: Performed By: #### F TI, FE #### [address] [address] Wellness Nurse: Otoniel Ash MD #### TSH, LIPR, CP, GLYHGB, CDP #### [facility] [address] [place] [address] Dr. [place] [phone] Wellness Nurse: Elisabeth Worthy MD WBC (Bld) [#/Vol] 5.6 10*3/uL Normal 3.5-11.3 [facility] Comment on above: Performed By: #### F TI, FE #### [address] [address] Wellness Nurse: Otoniel Ash MD #### TSH, LIPR, CP, GLYHGB, CDP #### [address] [place] [phone] Wellness Nurse: Elisabeth Worthy MD Auto Diff Performed NOT REPORTED Normal [facility] Comment on above: Performed By: #### F TI, FE #### [address] [address] Wellness Nurse: Otoniel Ash MD #### TSH, LIPR, CP, GLYHGB, CDP #### [address] [place] [address] Wellness Nurse: Elisabeth Worthy MD Platelets (Bld) [#/Vol] NOT REPORTED Normal [facility] Comment on above: Performed By: #### F TI, FE #### [address] [address] Wellness Nurse: Otoniel Ash MD #### TSH, LIPR, CP, GLYHGB, CDP #### [address] [place] [address] Wellness Nurse: Elisabeth Worthy MD RBC morphology finding Nom (Bld) NOT REPORTED Normal [facility] Comment on above: Performed By: #### F TI, FE #### [address] [address] Wellness Nurse: Otoniel Ash MD #### TSH, LIPR, CP, GLYHGB, CDP #### [address] [place] [phone] Wellness Nurse: Elisabeth Worthy MD WBC Morphology NOT REPORTED Normal [facility] Comment on above: Performed By: #### F TI, FE #### [place] [address] [place] [address] Wellness Nurse: Otoniel Ash MD #### TSH, LIPR, CP, GLYHGB, CDP #### [address] [place] [address] Wellness Nurse: Elisabeth Worthy MD Comp Metabolic Profon 2019 (cont.) Normal [facility] Comment on above: Result Comment: Aver age GFR for 60-69 years old: 85 mL/min/1.73sq m Chronic Kidney Disease: <60 mL/min/1.73sq m Kidney failure: <15 mL/min/1.73sq m eGFR calculated using average adult body mass. Additional eGFR calculator available at: http://www.Tweetwall/multiple_crcl_2011.htm Performed By: #### F TI, FE #### [address] [address] Wellness Nurse: Otoniel Ash MD #### TSH, LIPR, CP, GLYHGB, CDP #### [address] [place] [address] Wellness Nurse: Elisabeth Worthy MD Albumin [Mass/Vol] 4.5 g/dL Normal 3.5-5.2 [facility] Comment on above: Performed By: #### F TI, FE #### [address] [address] Wellness Nurse: Otoniel Ash MD #### TSH, LIPR, CP, GLYHGB, CDP #### [address] [place] [address] Wellness Nurse: Elisabeth Worthy MD Albumin/Globulin [Mass ratio] 1.4 {ratio} Normal 1.0-2.5 [facility] Comment on above: Performed By: #### F TI, FE #### [place] [address] [place] [address] Wellness Nurse: Otoniel Ash MD #### TSH, LIPR, CP, GLYHGB, CDP #### [facility] [address] [place], [place] [phone] Wellness Nurse: Elisabeth Worthy MD Alkaline Phos 94 U/L Normal 35-104 [facility] Comment on above: Performed By: #### F TI, FE #### [place] [address] [place] [address] Wellness Nurse: Otoniel Ash MD #### TSH, LIPR, CP, GLYHGB, CDP #### [address] [place] [address] Wellness Nurse: Elisabeth Worthy MD ALT [Catalytic activity/Vol] 10 U/L Normal 5-33 [facility] Comment on above: Performed By: #### F TI, FE #### [address] [address] Wellness Nurse: Otoniel Ash MD #### TSH, LIPR, CP, GLYHGB, CDP #### [address] [place] [address] Wellness Nurse: Elisabeth Worthy MD Anion gap [Moles/Vol] 12 mmol/L Normal 9-17 [facility] Comment on above: Performed By: #### F TI, FE #### [place] [address] [place] [address] Wellness Nurse: Otoniel Ash MD #### TSH, LIPR, CP, GLYHGB, CDP #### [facility] [address] [place] [address] [place], [place] [phone] Wellness Nurse: Elisabeth Worthy MD AST [Catalytic activity/Vol] 40 U/L High <32 [facility] Comment on above: Performed By: #### F TI, FE #### [address] [phone] Wellness Nurse: Otoniel Ash MD #### TSH, LIPR, CP, GLYHGB, CDP #### [address] [place], [place] [phone] Wellness Nurse: Elisabeth Worthy MD Bilirubin Ql (U) 0.27 mg/dL Low 0.3-1.2 [facility] Comment on above: Performed By: #### F TI, FE #### [address] [address] Wellness Nurse: Otoniel Ash MD #### TSH, LIPR, CP, GLYHGB, CDP #### [address] [place] [address] Wellness Nurse: Elisabeth Worthy MD BUN/CRE Ratio 22 High 9-20 [facility] Comment on above: Performed By: #### F TI, FE #### [address] [address] Wellness Nurse: Otoniel Ash MD #### TSH, LIPR, CP, GLYHGB, CDP #### [address] [place] [address] Wellness Nurse: Elisabeth Worthy MD Calcium [Mass/Vol] 10.0 mg/dL Normal 8.6-10.4 [facility] Comment on above: Performed By: #### F TI, FE #### [address] [address] Wellness Nurse: Otoniel Ash MD #### TSH, LIPR, CP, GLYHGB, CDP #### [address] [place] [address] Wellness Nurse: Elisabeth Worthy MD Chloride [Moles/Vol] 105 mmol/L Normal 98-[address] [facility] Comment on above: Performed By: #### F TI, FE #### [address] [address] Wellness Nurse: Otoniel Ash MD #### TSH, LIPR, CP, GLYHGB, CDP #### [facility] [address] [place] [address] Dr. [place], [place] [phone] Wellness Nurse: Elisabeth Worthy MD CO2 [Moles/Vol] 21 mmol/L Normal 20-31 [facility] Comment on above: Performed By: #### F TI, FE #### [address] [address] Wellness Nurse: Otoniel Ash MD #### TSH, LIPR, CP, GLYHGB, CDP #### [address] [place], [place] [phone] Wellness Nurse: Elisabeth Worthy MD Creatinine [Mass/Vol] 0.79 mg/dL Normal 0.50-0.90 [facility] Comment on above: Performed By: #### F TI, FE #### [address] [address] Wellness Nurse: Otoniel Ash MD #### TSH, LIPR, CP, GLYHGB, CDP #### [facility] [address] [place] [address] [place], [place] [phone] Wellness Nurse: Elisabeth Worthy MD GFR, Amer >60 Normal >60 [facility] Comment on above: Performed By: #### F TI, FE #### [address] [address] Wellness Nurse: Otoniel Ash MD #### TSH, LIPR, CP, GLYHGB, CDP #### [facility] [address] [place] [address] Dr. [place], [place] [phone] Wellness Nurse: Elisabeth Worthy MD GFR,non Amer >60 Normal >[address] [facility] Comment on above: Performed By: #### F TI, FE #### [address] [address] Wellness Nurse: Otoniel Ash MD #### TSH, LIPR, CP, GLYHGB, CDP #### [address] [place], [place] [phone] Wellness Nurse: Elisabeth Worthy MD Glucose [Mass/Vol] 99 mg/dL Normal 70-99 [facility] Comment on above: Performed By: #### F TI, FE #### [address] [address] Wellness Nurse: Otoniel Ash MD #### TSH, LIPR, CP, GLYHGB, CDP #### [address] [place] [address] Wellness Nurse: Elisabeth Worthy MD Potassium [Moles/Vol] 4.1 mmol/L Normal 3.7-5.3 [facility] Comment on above: Performed By: #### F TI, FE #### [address] [address] Wellness Nurse: Otoniel Ash MD #### TSH, LIPR, CP, GLYHGB, CDP #### [address] [place], [place] [phone] Wellness Nurse: Elisabeth Worthy MD Protein [Mass/Vol] 7.7 g/dL Normal 6.4-8.3 [facility] Comment on above: Performed By: #### F TI, FE #### [address] [address] Wellness Nurse: Otoniel Ash MD #### TSH, LIPR, CP, GLYHGB, CDP #### [address] [place] [address] Wellness Nurse: Elisabeth Worthy MD Sodium [Moles/Vol] 138 mmol/L Normal 135-144 [facility] Comment on above: Performed By: #### F TI, FE #### [place] [place], [place] [id number] Wellness Nurse: Otoniel Ash MD #### TSH, LIPR, CP, GLYHGB, CDP #### [address] [place] [address] Wellness Nurse: Elisabeth Worthy MD Staging: Normal [facility] Comment on above: Result Comment: Stag e 1: Some kidney damage normal GFR Stage 2: Mild kidney damage GFR 60-89 Stage 3: Moderate kidney damage GFR 30-59 Stage 4: Severe kidney damage GFR 15-29 Stage 5: Severe kidney damage GFR <15 ESRD - chronic treatment by dialysis or transplant Performed By: #### F TI, FE #### [address] [address] Wellness Nurse: Otoniel Ash MD #### TSH, LIPR, CP, GLYHGB, CDP #### [address] [place] [address] Wellness Nurse: Elisabeth Worthy MD Urea nitrogen [Mass/Vol] 17 mg/dL Normal 8- [facility] Comment on above: Performed By: #### F TI, FE #### [address] [id number] Wellness Nurse: Otoniel Ash MD #### TSH, LIPR, CP, GLYHGB, CDP #### [address] [place] [address] Wellness Nurse: Elisabeth Worthy MD Comprehensive Metabolic Pane [facility] 10-07-2019 Albumin [Mass/Vol] 4.5 g/dL 3.5 - 5.2 g/dL [place] Albumin/Globulin [Mass ratio] 1.4 {ratio} [place] ALP [Catalytic activity/Vol] 94 U/L 35 - 104 U/L [place] ALT [Catalytic activity/Vol] 10 U/L 5 - 33 U/L [place] Anion gap [Moles/Vol] 12 mmol/L 9 - 17 mmol/L [place] AST [Catalytic activity/Vol] 40 U/L High <32 [place] Bilirubin Ql (U) 0.27 mg/dL Low 0.3 - 1.2 mg/dL [place] Bun/Cre Ratio 22 High [place] Calcium [Mass/Vol] 10.0 mg/dL 8.6 - 10. 4 mg/dL [place] Chloride [Moles/Vol] 105 mmol/L 98 - 10 7 mmol/L [place] CO2 [Moles/Vol] 21 mmol/L 20 - 31 mmol/L [place] Creatinine [Mass/Vol] 0.79 mg/dL 0.5 - 0.9 mg/dL [place] GFR >60 >60 mL/min [place] GFR Non- >60 >60 mL/min [place] Glucose [Mass/Vol] 99 mg/dL 70 - 99 mg/dL [place] Potassium [Moles/Vol] 4.1 mmol/L 3.7 - 5.3 mmol/L [place] Protein [Mass/Vol] 7.7 g/dL 6.4 - 8.3 g/dL [place] Sodium [Moles/Vol] 138 mmol/L 135 - 144 mmol/L [place] Urea nitrogen [Mass/Vol] 17 mg/dL 8 - 23 mg/dL [place] Hemoglobin A1Con 10-07-2019 HbA1c (Bld) [Mass fraction] 5.3 % Normal 4.8-5.9 [facility] Comment on above: Performed By: #### F NGOC PAUL #### [facility] [address] [place] [address] Wellness Nurse: Otoniel Ash MD #### TSH, LIPR, CP, GLYHGB, CDP #### [facility] [address] [address] Wellness Nurse: Elisabeth Worthy MD HbA1c (Bld) [Mass fraction] 105 mg/dL Normal [facility] Comment on above: Result Comment: The ADA and AACC recommend providing the estimated average glucose result to permit better patient understanding of their HBA1c result. Performed By: #### F TI, FE #### [facility] [address] [place] [address] Wellness Nurse: Otoniel Ash MD #### TSH, LIPR, CP, GLYHGB, CDP #### [facility] [address] [address] Wellness Nurse: Elisabeth Worthy MD Glucose [Mass/Vol] 105 mg/dL [place] Comment on above: The ADA and AACC rec ommend providing the estimated average glucose result to permit better patient understanding of their HBA1c result. HbA1c (Bld) [Mass fraction] 5.3 % 4.8 - 5.9 % [place] Ironon 10-07-2019 Iron [Mass/Vol] 73 ug/dL 37 - 145 ug/dL [place] Lipid Panelon 10-07-2019 Cholesterol [Mass/Vol] 229 mg/dL High <200 [place] Comment on above: Cholesterol Guidelines: <200 Desirable 200-240 Borderline >240 Undesirable Cholesterol in HDL [Mass/Vol] 67 mg/dL >40 [place] Comment on above: HDL Guidelines: <40 Undesirable 40-59 Borderline >59 Desirable Cholesterol in LDL [Mass/Vol] 127 mg/dL 0 - 130 mg/dL [place] Comment on above: LDL Guidelines: <100 Desirable 100-129 Near to/above Desirable 130-159 Borderline >159 Undesirable Direct (measured) LDL and calculated LDL are not interchangeable tests. Cholesterol in VLDL [Mass/Vol] NOT REPORTED High 1 - 30 mg/dL [place] Cholesterol.total/Cho lesterol in HDL [Mass ratio] 3.4 {ratio} <5 [place] Triglyceride [Mass/Vol] 175 mg/dL High <150 [place] Comment on above: Triglyceride Guidelines: <150 Desirable 150-199 Borderline 200-499 High >499 Very high Based on AHA Guidelines for fasting triglyceride, December 2011. Lipid Profileon 10-07-2019 Cholesterol [Mass/Vol] 229 mg/dL High <200 [facility] Comment on above: Result Comment: Cholesterol Guidelines: <200 Desirable 200-240 Borderline >240 Undesirable Performed By: #### F TI, FE #### [address] [place] [address] Wellness Nurse: Otoniel Ash MD #### TSH, LIPR, CP, GLYHGB, CDP #### [facility] [address] [place] [address] Wellness Nurse: Elisabeth Worthy MD Cholesterol in HDL [Mass/Vol] 67 mg/dL Normal >40 [facility] Comment on above: Result Comment: HDL Guidelines: <40 Undesirable 40-59 Borderline >59 Desirable Performed By: #### F TI, FE #### [address] [address] Wellness Nurse: Otoniel Ash MD #### TSH, LIPR, CP, GLYHGB, CDP #### [facility] [address] [place] [address] Wellness Nurse: Elisabeth Worthy MD Cholesterol in LDL [Mass/Vol] 127 mg/dL Normal 0-130 [facility] Comment on above: Result Comment: LDL Guidelines: <100 Desirable 100-129 Near to/above Desirable 130-159 Borderline >159 Undesirable Direct (measured) LDL and calculated LDL are not interchangeable tests. Performed By: #### F TI, FE #### [address] [address] Wellness Nurse: Otoniel Ash MD #### TSH, LIPR, CP, GLYHGB, CDP #### [facility] [address] [address] Wellness Nurse: Elisabeth Worthy MD Cholesterol.total/Cho lesterol in HDL [Mass ratio] 3.4 {ratio} Normal <5 [facility] Comment on above: Performed By: #### F TI, FE #### [facility] [address] [place], [place] [id number] Wellness Nurse: Otoniel Ash MD #### TSH, LIPR, CP, GLYHGB, CDP #### [facility] [address] [address] Wellness Nurse: Elisabeth Worthy MD Triglyceride [Mass/Vol] 175 mg/dL High <150 [facility] Comment on above: Result Comment: Triglyceride Guidelines: <150 Desirable 150-199 Borderline 200-499 High >499 Very high Based on AHA Guidelines for fasting triglyceride, December 2011. Performed By: #### F HUMBERTO, FE #### [address] [place] [address] Wellness Nurse: Otoniel Ash MD #### TSH, LIPR, CP, GLYHGB, CDP #### [facility] [address] [place] [address] [place] [address] Wellness Nurse: Elisabeth Worthy MD Cholesterol in VLDL [Mass/Vol] NOT REPORTED Normal 04-16 [facility] Comment on above: Performed By: #### F , FE #### [address] [place], [place] [id number] Wellness Nurse: Otoniel Ash MD #### TSH, LIPR, CP, GLYHGB, CDP #### [facility] [address] [place] [address] [place] [address] Wellness Nurse: Elisabeth Worthy MD Metabolic Panelon 10-07-2019 GFR/1.73 sq M predicted among non-blacks MDRD (S/P/Bld) [Vol rate/Area] [facility] [place] Comment on above: Stage 1: Some kidney [...] body mass. Additional eGFR calculator available at: http://www.Tweetwall/multiple_crcl_2012.htm Otheron 10-07-2019 Interpretation and review of laboratory results Abnormal [place] TSH without Reflexon 020 TSH Qn 1.12 m[IU]/L [place] Thyroid Stim. Horm.on 2019 TSH Qn 1.12 m[IU]/L Normal 0.30-5.00 [facility] Comment on above: Performed By: #### F TI, FE #### [facility] [address] [place] [address] Wellness Nurse: Otoniel Ash MD #### TSH, LIPR, CP, GLYHGB, CDP #### [facility] [address] [place] [address] Wellness Nurse: Elisabeth Wortyh MD Operative Reporton 8 Operative Report MR#: [id number] [facility] Pt. 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 [address], [facility] [address] [address] [facility] POC GLUCOSE LABon 03-17-2018 Glucose mass conc 89 mg/dL Normal 70-[address] [facility] Comment on above: Performed By: #### 8 [id number] ####[facility] [place], [place] [address] Vital Signs Date Time Vital Sign Value Performing Clinician Facility 09-10-2024 09:18-0400 Body height 165.1 cm Semaj Brown DPM Work Phone: [facility] 09-10-2024 09:18-0400 Body mass index (BMI) [Ratio] 21.47 kg/m2 Semaj Brown DPM Work Phone: [facility] 09-10-2024 09:18-0400 Body weight 58.51 kg Semaj Brown DPM Work Phone: [facility] 09-10-2024 09:18-0400 Respiratory rate 18 /min Semaj Brown DPM Work Phone: [facility] 08-27-2024 08:42-0400 Body height 165.1 cm Semaj Brown DPM Work Phone: [facility] 08-27-2024 08:42-0400 Body mass index (BMI) [Ratio] 21.47 kg/m2 Semaj Brown DPM Work Phone: [facility] 08-27-2024 08:42-0400 Body weight 58.51 kg Semaj Brown DPM Work Phone: [facility] 08-27-2024 08:42-0400 Respiratory rate 18 /min Semaj Brown DPM Work Phone: [facility] 08-13-2024 08:41-0400 Body height 165.1 cm Semaj Brown DPM Work Phone: [facility] 08-13-2024 08:41-0400 Body mass index (BMI) [Ratio] 21.47 kg/m2 Semaj Brown DPM Work Phone: [facility] 08-13-2024 08:41-0400 Body weight 58.51 kg Semaj Brown DPM Work Phone: [facility] 08-13-2024 08:41-0400 Respiratory rate 18 /min Semaj Brown DPM Work Phone: [facility] 07-30-2024 09:19-0400 Body height 165.1 cm Semaj Brown DPM Work Phone: [facility] 07-30-2024 09:19-0400 Body mass index (BMI) [Ratio] 21.47 kg/m2 Semaj Brown DPM Work Phone: [facility] 07-30-2024 09:19-0400 Body weight 58.51 kg Semaj Brown DPM Work Phone: [facility] 07-30-2024 09:19-0400 Respiratory rate 16 /min Semaj Brown DPM Work Phone: [facility] 07-09-2024 08:48-0400 Body height 165.1 cm Semaj Brown DPM Work Phone: [facility] 07-09-2024 08:48-0400 Body mass index (BMI) [Ratio] 21.47 kg/m2 Semaj Brown DPM Work Phone: [facility] 07-09-2024 08:48-0400 Body weight 58.51 kg Semaj Brown DPM Work Phone: [facility] 07-09-2024 08:48-0400 Respiratory rate 18 /min Semaj Brown DPM Work Phone: [facility] 06-01-2024 11:12-0400 Body mass index (BMI) [Ratio] 21.6 kg/m2 Severo Patricio DO Work Phone: [facility] 06-01-2024 11:12-0400 Body weight 58.88 kg Severo Patricio DO Work Phone: [facility] 06-01-2024 11:12-0400 Diastolic blood pressure 74 mm[Hg] Severo Patricio DO Work Phone: [facility] 06-01-2024 11:12-0400 Systolic blood pressure 124 mm[Hg] Severo Patricio DO Work Phone: [facility] 05-28-2024 11:26-0400 Body height 165.1 cm Semaj Brown DPM Work Phone: [facility] 05-28-2024 11:26-0400 Body mass index (BMI) [Ratio] 21.47 kg/m2 Semaj Brown DPM Work Phone: [facility] 05-28-2024 11:26-0400 Body weight 58.51 kg Semaj Brown DPM Work Phone: [facility] 05-28-2024 11:26-0400 Respiratory rate 18 /min Semaj Brown DPM Work Phone: [facility] 04-09-2024 10:48-0500 Body height 165.1 cm Semaj Brown DPM Work Phone: [facility] 04-09-2024 10:48-0500 Body mass index (BMI) [Ratio] 21.47 kg/m2 Semaj Brown DPM Work Phone: [facility] 04-09-2024 10:48-0500 Body weight 58.51 kg Semaj Brown DPM Work Phone: [facility] 04-09-2024 10:48-0500 Respiratory rate 18 /min Semaj Brown DPM Work Phone: [facility] 03-19-2024 15:44-0500 Body height 165.1 cm Semaj Brown DPM Work Phone: [facility] 03-19-2024 15:44-0500 Body mass index (BMI) [Ratio] 21.47 kg/m2 Semaj Brown DPM Work Phone: [facility] 03-19-2024 15:44-0500 Body weight 58.51 kg Semaj Sanchez DPM Work Phone: [facility] 03-19-2024 15:44-0500 Respiratory rate 18 /min Semaj Eli DPM Work Phone: [facility] 02-05-2024 14:03-0500 Blood Pressure Location Rubén NILL [facility] 02-05-2024 14:03-0500 Diastolic blood pressure 84 mm[Hg] Rubén NILL [facility] 02-05-2024 14:03-0500 Heart rate 72 /min Rubén NILL [facility] 02-05-2024 14:03-0500 Respiratory rate 16 /min Rubén NILL [facility] 02-05-2024 14:03-0500 Systolic blood pressure 132 mm[Hg] Rubén NILL [facility] 10-23-2022 11:13-0400 Body height 165.1 cm Claire West MD Work Phone: [facility] 10-23-2022 11:13-0400 Body weight 73.07 kg Claire West MD Work Phone: [facility] 10-23-2022 11:13-0400 Diastolic blood pressure 71 mm[Hg] Claire West MD Work Phone: [facility] 10-23-2022 11:13-0400 Heart rate 77 /min Claire West MD Work Phone: [facility] 10-23-2022 11:13-0400 Systolic blood pressure 125 mm[Hg] Claire West MD Work Phone: [facility] Encounters Encounter Date Encounter Type Care Provider Facility Start: 09-16-2024 End: 09-16-2024 Office outpatient visit 25 minutes Marianna Amaya MD Work Phone: [facility] Comment on above: Other atopic dermati tis (Primary Dx); Neoplasm of unspecified behavior of bone, soft tissue, and skin Start: 09-16-2024 End: 09-16-2024 ambulatory MARIANNA AMAYA Not Available Start: 09-16-2024 End: 09-16-2024 Bambothaddeus Amaya MD Work Phone: [facility] Start: 09-16-2024 End: 09-16-2024 Bamboo flowsvandana Amaya MD Work Phone: [facility] Start: 09-10-2024 End: 09-10-2024 Bamboo flowsheet Semaj Sanchez DPM Work Phone: [facility] Start: 09-10-2024 End: 09-10-2024 Bamboo flowsheet Semaj Snachez DPM Work Phone: [facility] Start: 09-10-2024 End: 09-10-2024 ambulatory SEMAJ SANCHEZ Not Available Start: 09-10-2024 End: 09-10-2024 Office outpatient visit 15 minutes Semaj Sanchez DPM Work Phone: [facility] Comment on above: Verruca plantaris (P rimary Dx); Foot pain, left; Neoplasm of uncertain behavior of skin Start: 09-09-2024 End: 09-09-2024 Patient encounter procedure Alejandra Weston MD Work Phone: Otolaryngology Comment on above: 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); Tinnitus, unspecified laterality; Temporomandibular joint disorder Start: 09-09-2024 End: 09-09-2024 ambulatory ANAMIKA VALLE Facility:[facility] Start: 08-27-2024 End: 08-27-2024 Bamboo flowsheet Semaj Sanchez DPM Work Phone: [facility] Start: 08-27-2024 End: 08-27-2024 Bamboo flowsheet Semaj Sanchez DPM Work Phone: [facility] Start: 08-27-2024 End: 08-27-2024 Office outpatient visit 15 minutes Semaj Sanchez DPM Work Phone: [facility] Comment on above: Neoplasm of uncertai n behavior of skin (Primary Dx); Verruca plantaris; Foot pain, left Start: 08-27-2024 End: 08-27-2024 ambulatory SEMAJ SANCHEZ Not Available Start: 08-14-2024 End: 08-14-2024 Transcribe Orders Anamika Valle MD Work Phone: Referring Physician Comment on above: Tinnitus, unspecifie d laterality (Primary Dx) Start: 08-13-2024 End: 08-13-2024 Bamboo flowsheet Semaj Sanchez DPM Work Phone: [facility] Start: 08-13-2024 End: 08-13-2024 Bamboo flowsheet Semaj Sanchez DPM Work Phone: [facility] Start: 08-13-2024 End: 08-13-2024 Patient encounter procedure Semaj Sanchez DPM Work Phone: [facility] Comment on above: Neoplasm of uncertai n behavior of skin (Primary Dx) Start: 08-13-2024 End: 08-13-2024 ambulatory SEMAJ SANCHEZ Not Available Start: 07-30-2024 End: 07-30-2024 Bamboo flowsheet Semaj Sanchez DPM Work Phone: [facility] Start: 07-30-2024 End: 07-30-2024 Bamboo flowsheet Semaj Finn Brown DPM Work Phone: [facility] Start: 07-30-2024 End: 07-30-2024 Patient encounter procedure Semaj Sanchez DPM Work Phone: [facility] Comment on above: Verruca plantaris (P rimary Dx); Foot pain, right; Foot pain, left Start: 07-30-2024 End: 07-30-2024 ambulatory SEMAJ SANCHEZ Not Available Start: 07-09-2024 End: 07-09-2024 Bamboo flowsheet Semaj Sanchez DPM Work Phone: [facility] Start: 07-09-2024 End: 07-09-2024 Bamboo flowsheet Semaj Sanchez DPM Work Phone: [facility] Start: 07-09-2024 End: 07-09-2024 Patient encounter procedure Semaj Sanchez DPM Work Phone: [facility] Comment on above: Verruca plantaris (P rimary Dx); Foot pain, right; Foot pain, left Start: 07-09-2024 End: 07-09-2024 ambulatory SEMAJ SANCHEZ Not Available Start: 06-01-2024 End: 06-01-2024 Bamboo flowsheet Severo Patricio DO Work Phone: [facility] Start: 06-01-2024 End: 06-01-2024 Bamboo flowsheet Severo Patricio DO Work Phone: [facility] Start: 06-01-2024 End: 06-01-2024 Patient encounter procedure Severo Patricio DO Work Phone: [facility] Work Phone: Start: 06-01-2024 End: 06-01-2024 Periodic preventive med est patient 65yrs& older Severo Patricio DO Work Phone: [facility] Comment on above: Well woman exam with routine gynecological exam; Breast cancer screening by mammogram; Postmenopausal state Start: 06-01-2024 End: 06-01-2024 ambulatory SEVERO PATRICIO Not Available Start: 05-28-2024 End: 05-28-2024 Bamboo flowsheet Semaj Sanchez DPM Work Phone: [facility] Start: 05-28-2024 End: 05-28-2024 Bamboo flowsheet Semaj Sanchez DPM Work Phone: [facility] Start: 05-28-2024 End: 05-28-2024 ambulatory SEMAJ SANCHEZ Not Available Start: 05-28-2024 End: 05-28-2024 Patient encounter procedure Semaj Sanchez DPM Work Phone: [facility] Comment on above: 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 (Primary Dx); Verruca plantaris; Foot pain, right; Foot pain, left Start: 04-15-2024 End: 04-15-2024 ambulatory Rubén MANUEL Facility:[id number] Start: 04-09-2024 End: 04-09-2024 Bamboo flowsheet Semaj Sanchez DPM Work Phone: [facility] Start: 04-09-2024 End: 04-09-2024 Bamboo flowsheet Semaj Sanchez DPM Work Phone: [facility] Start: 04-09-2024 End: 04-09-2024 Patient encounter procedure Semaj Sanchez DPM Work Phone: [facility] Comment on above: Verruca plantaris (P rimary Dx); Foot pain, right; Foot pain, left Start: 04-09-2024 End: 04-09-2024 ambulatory SEMAJ SANCHEZ Not Available Start: 03-19-2024 End: 03-19-2024 Office outpatient visit 15 minutes Semaj Sanchez DPM Work Phone: [facility] Comment on above: Neoplasm of uncertai [...] Start: 02-06-2024 End: 02-06-2024 ambulatory GEORGES BURNS [place] Start: 02-06-2024 End: 02-06-[address] GEORGES BURNS [facility] Start: 02-05-2024 End: 02-05-2024 ambulatory Rubén MANUEL Facility:[facility] Start: 02-05-2024 End: 02-05-2024 Patient encounter procedure Rubén MANUEL [facility] Start: 12-27-2023 End: 12-27-2023 Patient encounter procedure MD Anamika Valle Work Phone: [facility] Work Phone: Start: 12-27-2023 End: 12-27-2023 ambulatory MD Anamika Valle Work Phone: [facility] Work Phone: Start: 12-17-2023 End: 12-17-2023 Bamboo flowsheet Shirin A Felter FIELD SUPERVISOR-VICE PRESIDENT OF HUMAN RESOURCES Work Phone: [facility] Start: 12-17-2023 End: 12-17-2023 Bamboo flowsheet Shirin A Felter FIELD SUPERVISOR-VICE PRESIDENT OF HUMAN RESOURCES Work Phone: [facility] Start: 12-17-2023 End: 12-17-2023 Office outpatient new 20 minutes Shirin A Felter FIELD SUPERVISOR-VICE PRESIDENT OF HUMAN RESOURCES Work Phone: [facility] Comment on above: Other nonthrombocyto penic purpura (CMS/HCC) (Primary Dx); Actinic keratosis Start: 12-17-2023 End: 12-17-2023 ambulatory SHIRIN ESCOBAR Not Available Start: 12-24-2022 End: 12-24-2022 ambulatory MD Anamika Valle Work Phone: [facility] Work Phone: Start: 12-24-2022 End: 12-24-2022 Patient encounter procedure MD Anamika Valle Work Phone: [facility] Work Phone: Start: 10-23-2022 End: 10-23-2022 Patient encounter procedure Claire West MD Work Phone: General Surgery Comment on above: Ventral hernia witho ut obstruction or gangrene (Primary Dx) Start: 04-19-2022 End: 04-19-2022 ambulatory DESTINI DOOLEY Facility:[facility] Start: 01-05-2022 End: 01-06-[address] ANAMIKA VALLE Facility:[facility] Start: 12-21-2021 End: 12-21-2021 ambulatory MD Anamika Valle Work Phone: [facility] Work Phone: Start: 12-21-2021 End: 12-21-2021 Patient encounter procedure MD Anamika Valle Work Phone: [facility] Start: 11-09-2021 End: 11-10-[address] ANAMIKA VALLE Facility:[facility] Start: 08-31-2021 End: 08-31-[address] ANAMIKA VALLE Facility:[facility] Start: 06-29-2021 End: 06-29-[address] ANAMIKA VALLE Facility:[facility] Start: 06-21-2021 End: 06-22-[address] ANAMIKA VALLE Facility:[facility] Start: 06-08-2021 End: 06-09-[address] ANAMIKA VALLE Facility:[facility] Start: 10-13-2019 End: 10-14-2019 Patient encounter procedure ANAMIKA M HOY [facility] Start: 10-13-2019 End: 10-13-2019 Subsequent hospital visit by physician Anamika Valle [facility] Start: 10-07-2019 End: 10-08-2019 Patient encounter procedure ANAMIKA Irwin Babar [facility] Start: 10-07-2019 End: 10-07-2019 Subsequent hospital visit by physician [facility] Drawing Room [facility] Laboratory Comment on above: Arrived Start: 03-17-2018 End: 03-18-2018 Patient encounter procedure GIOVANI HOLCOMB Facility:[facility] Start: 02-14-2018 End: 02-15-2018 Patient encounter procedure DEFAULT PHYSICIAN Facility:[facility] Procedures Date Procedure Procedure Detail Performing Clinician Start: 09-16-2024 SKIN / NAIL BIOPSY Varindernahum Amaya MD Work Phone: Start: 12-27-2023 Screening mammograph y of bilateral breasts MD Anamika Valle Work Phone: Start: 12-17-2023 CRYOTHERAPY SKIN LESION Shirin Escobar FIELD SUPERVISORTamr Work Phone: Start: 12-24-2022 Screening mammograph y of bilateral breasts MD Anamika Valle Work Phone: Start: 04-19-2022 Mammography Shirin alvarez FIELD SUPERVIS[employer]amr Work Phone: Start: 12-21-2021 Screening mammograph y of bilateral breasts MD Anamika Valle Work Phone: Start: 10-13-2019 Virus centrifuge enh ncd id imfluor stain ea ANAMIKA VALLE Start: 10-13-2019 BLOOD OCCULT STOOL S CREEN #1 Anamika Alida Griffinbabar Work Phone: Start: 10-07-2019 Assay of iron ANAMIKA H OY Start: 10-07-2019 Assay of thyroid stimulating hormone tsh ANAMIKA MAKAYLA Start: 10-07-2019 Blood count complete auto&auto difrntl wbc ANAMIKA VALLE Start: 10-07-2019 Comprehensive metabo lic panel ANAMIKA VALLE Start: 10-07-2019 Hemoglobin glycosylated a1c ANAMIKA VALLE Start: 10-07-2019 Lipid panel ANAMIKA Babar Start: 10-07-2019 Thyroid horm uptk/th yroid hormone [...] binding ratio Anamika Valle Work Phone: Start: 10-07-2019 Lipid 1996 panel - S sammi or Plasma Anamika Valle MD Work Phone: Start: 03-17-2018 ANESTH LOWER ARM SURGERY [facility]OUCHRA HARPER Start: 03-17-2018 INCISION OF TENDON SHEATH ABDULAZIM JI Appendectomy Rubén MANUEL Colonoscopy Rubén MANUEL Decompression of med vernon nerve Rubén MANUEL Re-release of carpal tunnel Rubén MANUEL Total abdominal hysterectomy with bilateral salpingo-oophorectomy Rubén MANUEL Plan of Treatment Date Care Activity Detail Author Start: 12-12-2031 RSV Vaccine (1 - 1-dose 75+ series) RSV Vaccine (1 - 1-dose 75+ series) [facility] Start: 06-01-2028 DTaP/Tdap/Td vaccine (2 - Td) DTaP/Tdap/Td vaccine (2 - Td) [place] Start: 06-01-2028 Urine microalbumin profile DTaP,Tdap,Td Vaccine (2 - Td or Tdap) [facility] Start: 06-03-2025 End: 06-03-2025 Patient encounter procedure 06/03/2025 11:00 AM EDT Office Visit [facility] [address] [place] [address] Severo Curry DO [address] [place] [address] [facility] Start: 11-16-2024 Influenza vaccination [facility] Start: 10-06-2024 Lipid panel [facility] Start: 10-01-2024 End: 10-01-2024 Patient encounter procedure 10/01/2024 9:10 AM EDT Office Visit [facility] [address] [facility] [address] [place] [id number] Semaj Sanchez, DPM [address] [address] [facility] Start: 09-16-2024 End: 09-16-2024 Patient encounter procedure 09/16/2024 2:35 PM EDT Office Visit [facility] [address] [place] [phone] Marianna Amaya MD [address] [place] [address] Arrived [facility] Comment on above: Arrived Start: 08-27-2024 End: 08-27-2024 Patient encounter procedure 08/27/2024 8:50 AM EDT Office Visit [facility] [address] [place] [address] Semaj Sanchez DPM [address] [address] Neoplasm of uncertain behavior of skin (Primary Dx) [facility] Comment on above: Neoplasm of uncertain behavior of skin ( Primary Dx) Start: 08-13-2024 End: 08-13-2024 Patient encounter procedure 08/13/2024 8:40 AM EDT Office Visit [facility] [address] [place] [address] Semaj Sanchez DPM [address] [address] Neoplasm of uncertain behavior of skin (Primary Dx) [facility] Comment on above: Neoplasm of uncertain behavior of skin ( Primary Dx) Start: 08-06-2024 End: 08-06-2024 Patient encounter procedure 08/06/2024 11:20 AM EDT Procedure Visit [facility] [address] [facility] [address] [place] [address] Semaj Sanchez DPM [address] [address] [facility] Start: 07-30-2024 End: 07-30-2024 Patient encounter procedure 07/30/2024 9:30 AM EDT Office Visit [facility] [address] [facility] [address] [place] [address] Semaj Sanchez DPM [address] [address] Verruca plantaris (Primary Dx); Foot pain, right; Foot pain, left [facility] Comment on above: Verruca plantaris (Primary Dx); Foot pain, right; Foot pain, left Start: 07-09-2024 End: 07-09-2024 Patient encounter procedure 07/09/2024 8:50 AM EDT Office Visit [facility] [address] [facility] [address] [place] [address] Semaj Sanchez DPM [address] [address] Arrived [facility] Comment on above: Arrived Start: 06-11-2024 End: 06-11-2024 Patient encounter procedure 06/11/2024 11:30 AM EDT Office Visit [facility] [address] [facility] [address] [place] [address] Semaj Sanchez DPM [address] [address] [facility] Start: 06-01-2024 End: 06-01-2025 DXA Skeletal system Views for bone density DEXA bone density Imaging Routine Postmenopausal state Expected: 06/01/2024 (Approximate), Expires: 06/01/2025 [facility] Comment on above: Expected: 06/01/2024 (Approximate), Expi res: 06/01/2025 Start: 06-01-2024 End: 08-01-2025 MG Breast - bilateral Screening Bilateral screening mammogram Imaging Routine Breast cancer screening by mammogram Expected: 06/01/2024, Expires: 08/01/2025 [facility] Work Phone: Comment on above: Expected: 06/01/2024, Expires: Start: 06-01-2024 End: 06-01-2024 Patient encounter procedure [facility] Comment on above: Arrived Start: 05-28-2024 End: 05-28-2024 Patient encounter procedure 05/28/2024 11:00 AM EDT Procedure Visit [facility] [address] [facility] [address] [place] [address] Semaj Sanchez DPM [address] [address] [facility] Start: 04-09-2024 End: 04-09-2024 Patient encounter procedure 04/09/2024 11:00 AM EST Office Visit [facility] [address] [facility] [address] [place] [address] Semaj Sanchez, DPM [address] [address] Verruca plantaris (Primary Dx); Foot pain, right; Foot pain, left [facility] Comment on above: Verruca plantaris (Primary Dx); Foot pain, right; Foot pain, left Start: 03-19-2024 End: 03-19-2024 Patient encounter procedure 03/19/2024 3:50 PM EST Office Visit [facility] [address] [place] [id number] Semaj Sanchze DPM [address] [facility] [address] [place] [address] [facility] Start: 03-18-2024 Advance Directive Discussion Advance Directive Discussion [facility] Start: 03-18-2024 Medicare [facility] Annual Wellness Visit Medicare Advantage Annual Wellness Visit [facility] Start: 12-17-2023 End: 12-17-2023 Patient encounter procedure 12/17/2023 11:05 AM EDT Office Visit [facility] [address] [place] [address] Shirin Escobar APRN-VICE PRESIDENT OF HUMAN RESOURCES [address] [place] [address] Arrived [facility] Comment on above: Arrived Start: 11-17-2023 Covid-19 Vaccine ( season) Covid-19 Vaccine ( season) [facility] Start: 11-17-2023 Influenza vaccination Influenza Vaccine (#1) [facility] Start: 04-19-2023 Screening for malignant neoplasm of breast [facility] Start: 11-16-2022 Influenza vaccination INFLUENZA (#1) [facility] Start: 10-06-2022 Diabetes Screening Diabetes Screening [facility] Start: 04-21-2022 COVID-19 VACCINE (5 - Pfizer series) COVID-19 VACCINE (5 - Pfizer series) [facility] Start: 03-18-2022 ADVANCE DIRECTIVE DISCUSSION ADVANCE DIRECTIVE DISCUSSION [facility] Start: 03-18-2022 DEPRESSION ASSESSMENT DEPRESSION ASSESSMENT [facility] Start: 2021 BONE DENSITY BONE DENSITY [facility] Start: 09-26-2022 Pneumococcal Vaccine: 65+ Years (2 of 2 - PCV) Pneumococcal Vaccine: 65+ Years (2 of 2 - PCV) [facility] Start: 2021 Screening for osteoporosis Bone Density Screening [facility] Start: 11-17-2019 Influenza vaccination Flu vaccine (#1) [place], [place] Start: 06-27-2016 Pneumococcal Vaccine: 50+ (2 of 2 - PCV) Pneumococcal Vaccine: 50+ (2 of 2 - PCV) [facility] Start: 06-27-2016 Pneumococcal Vaccine: 65+ Years (2 of 2 - PCV) Pneumococcal Vaccine: 65+ Years (2 of 2 - PCV) [facility] Start: 2006 Influenza vaccination LUNG CANCER SCREENING [facility] Start: 2006 Screening for malignant neoplasm of breast Breast cancer screen [place], [place] Start: 2006 Screening for malignant neoplasm of colon Colon cancer screen colonoscopy [place] Start: 2006 Screening for malignant neoplasm of lung Lung Cancer Screening [facility] Start: 2006 Shingles Vaccine (1 of 2) Shingles Vaccine (1 of 2) [place] Start: 2006 SHINGRIX VACCINE (1 of 2) SHINGRIX VACCINE (1 of 2) [facility] Start: 2001 COLOGUARD (FIT-DNA) COLOGUARD (FIT-DNA) [facility] Start: 2001 Colonoscopy COLONOSCOPY [facility] Start: 2001 COLORECTAL CANCER SCREENING COLORECTAL CANCER SCREENING [facility] Start: [address] COLONOGRAPHY [facility] Start: 2001 DIABETES SCREEN DIABETES SCREEN [facility] Start: 2001 FECAL OCCULT BLOOD FECAL OCCULT BLOOD [facility] Start: 2001 LIPID SCREEN LIPID SCREEN [facility] Start: 2001 Screening for malignant neoplasm of colon [facility] Start: 2001 SIGMOIDOSCOPY SIGMOIDOSCOPY [facility] Start: 1996 Lipid panel Lipid screen [place], [place] Start: 1996 Mammography MAMMOGRAM [facility] Start: 1996 Screening for malignant neoplasm of breast Mammogram Screening [facility] Start: 1977 Screening for malignant neoplasm of cervix Cervical cancer screen [place], [place] Start: 12-12-1975 Urine microalbumin profile DTAP,TDAP,TD (1 - Tdap) [facility] Start: 1974 Anxiety Screening Anxiety Screening [facility] Start: 1974 Depression Screening Depression Screening [facility] Start: 1974 HEPATITIS C SCREENING HEPATITIS C SCREENING [facility] Start: 1974 Hepatitis C screening Hepatitis C Screening [facility] Start: 1974 HIV SCREENING HIV SCREENING [facility] Start: 12-12-1971 HIV screening HIV screen [place], [place] Start: 1962 PNEUMOCOCCAL: 65+ (1 - PCV) PNEUMOCOCCAL: 65+ (1 - PCV) [facility] Start: 1956 Hepatitis C screening Hepatitis C screen [place], [place] Start: 1956 Screening for malignant neoplasm of colon [facility] Dermatopathology exam Dermatopat hology exam Pathology and Cytology Timed Neoplasm of unspecified behavior of bone, soft tissue, and skin Release Upon Ordering for 1 Occurrences starting 09/16/2024 [facility] Work Phone: Comment on above: Release Upon Ordering for 1 Occurrences starting 09/16/2024 THIN PREP TIS PAP AN D HR HPV DNA THIN PREP TIS PAP AND HR HPV DNA Pathology and Cytology Routine Well woman exam with routine gynecological exam Ordered: 06/01/2024 [facility] Comment on above: Ordered: 06/01/2024 End: 09-10-2025 [facility] Audiology Routine Tinnitus, unspecified laterality Mixed conductive and sensorineural hearing loss of left ear with restricted hearing of right ear 1 Occurrences starting 09/09/2024 until 09/10/2025 [facility] Work Phone: Comment on above: 1 Occurrences starting 09/09/2024 until 09/10/2025 Immunizations Immunization Date Immunization Notes Care Provider Fa cility 12-19-2021 SARS-CoV-2 (COVID-19 ) [id number] Rubén MANUEL [facility] 04-04-2021 SARS-CoV-2 (COVID-19 ) mRNA BNT-162b2 vax Rubén MANUEL [facility] 12-16-2020 SARS-CoV-2 (COVID-19 ) mRNA BNT-162b2 vax Rubén MANUEL [facility] 11-28-2020 SARS-CoV-2 (COVID-19 ) mRNA BNT-162b2 vax Rubén MANUEL [facility] 06-05-2018 influenza virus vaccine, unspecified formulation Shirin Escobar FIELD SUPERVISOR-VICE PRESIDENT OF HUMAN RESOURCES Work Phone: [facility] 06-01-2018 tetanus toxoid, redu tu diphtheria toxoid, and acellular pertussis vaccine, adsorbed [facility] [place] Payers Date Payer Category Payer Self-pay [id number] 2023 Medicare (Managed Care) [id number] 2023 Medicare [id number] 2022 Medicare [id number] 2019 Unknown [id number] 2019 Unknown [employer] - EXCHANGE [id number] 2019-Present [phone] [address] [place] [address] [id number] 1959 Medicare [id number] 1959 Medicare [id number] 1959 Private Health Insurance [id number] 1956 Unknown [id number] 2.16.840.1.251937.3.579.2.6 47 1956 Unknown [id number] 2.16.840.1.984421.3.579.2.6 47 1956 Unknown [id number] 2.16.840.1.576877.3.579.2.1 73 1956 Unknown [id number] 2.16.840.1.733732.3.579.2.1 73 1956 Unknown [id number] 2.16.840.1.534984.3.579.2.5 93 1956 Unknown [id number] 2.16.840.1.937782.3.579.2.5 93 1956 Unknown [id number] 2.16.840.1.501488.3.579.2.5 93 1956 Unknown [id number] 2.16.840.1.042523.3.579.2.5 93 1956 Unknown [id number] 2.16.840.1.677248.3.579.2.5 93 1956 Unknown [id number] 2.16.840.1.968235.3.579.2.5 93 1956 Unknown [id number] 2.16.840.1.871232.3.579.2.5 93 1956 Unknown [id number] 2.16.840.1.534864.3.579.2.7 27 1956 Unknown [id number] 2.16.840.1.285853.3.579.2.7 27 1956 Unknown [id number] 2.16.840.1.691729.3.579.2.7 27 1956 Unknown [id number] 2.16.840.1.700767.3.579.2.1 259 1956 Unknown [id number] 2.16.840.1.961519.3.579.2.1 259 1956 Unknown [id number] 2.16.840.1.837538.3.579.2.1 259 1956 Unknown [id number] 2.16.840.1.069072.3.579.2.1 259 1956 Unknown [id number] 2.16.840.1.477895.3.579.2.1 259 1956 Unknown [id number] 2.16.840.1.566583.3.579.2.1 259 1956 Unknown [id number] 2.16.840.1.625642.3.579.2.1 259 1956 Unknown [id number] 2.16.840.1.685789.3.579.2.1 259 1956 Unknown [id number] 2.16.840.1.079594.3.579.2.1 259 1956 Unknown [id number] 2.16.840.1.431741.3.579.2.1 259 1956 Unknown [id number] 2.16.840.1.382581.3.579.2.1 259 Medicare Medicare [id number] Unknown [id number] Unknown Unknown HCAP/HFA/FAP Active [id number] Unknown [id number] 2.16840.1.789277.3.579.2.5 31 Social History Date Type Detail Facility Start: 05-31-2018 End: 02-05-2024 Tobacco smoking status NHIS Former smoker [facility] Start: 05-31-2018 Alcohol intake Ex-drinker (finding) [place], [place] Start: 1955 Sex Assigned At Not on file M [place] Exposure to SARS-CoV -2 (event) Not sure [place] Start: 1955 Sex Assigned At Female F [facility] Start: 10-23-2022 Tobacco smoking stat us NHIS Smokes tobacco daily [facility] History of tobacco use Cigarette Smoker C [facility] Start: 10-23-2022 End: 09-16-2024 Cigarettes smoked current (pack per day) - Reported 1 [facility] Start: 10-23-2022 End: 03-19-2024 Tobacco use and exposure User of smokeless tobacco [facility] Start: 10-23-2022 End: 09-16-2024 Alcohol intake Lifetime non-drinker (finding) [facility] Start: 10-23-2022 End: 09-16-2024 Tobacco use panel [facility] Start: 10-23-2022 Tobacco [facility] Start: 09-21-2022 End: 03-19-2024 Tobacco smoking status NHIS Never smoked tobacco [facility] Start: 04-27-2023 Alcohol Comment Caffine intake : 2-3 cups per day, coffee; tea [facility] National Score (1-10 0), lower number is lower risk 94 [facility] Functional Status Date Assessment Result Facility 02-05-2024 Functional Status N/A [facility] General Surgery [place] Clinical Notes 08-31-2021 to 09-16-2024 Marianna Amaya MD - 09/16/2024 2:35 PM Riki Sanchez DPM - 09/10/2024 9:10 AM Alejandra Gatica MD - 09/09/2024 12:18 PM Riki Sanchez DPM - 08/27/2024 8:40 AM EDT Note Date & Type Note Facility 09-16-2024 History of Present illness Narrative Images from the original note were not included. Lesions: Location: mid back Duration: months Quality: itchy Modifying factors: aggravated by picking Associated symptoms: non-healing, red Treatments: none Established patient of ROSALBA Interiano, Previous patient of Steve Anderson MD All pertinent medical history, medications, and allergies were reviewed. General Exam: alert, oriented to person, place, and time, normal affect, well appearing Unaccompanied A focused exam completed based on patient reported problems, see below: Skin Exam 1. NEOPLASM OF UNSPECIFIED BEHAVIOR OF BONE, SOFT TISSUE, AND SKIN Mid Back [place] papule Lesion biopsy Type of biopsy: tangential Informed consent: discussed and consent obtained Informed consent comment: The risks and benefits of the biopsy were discussed. Risks include but are not limited to bleeding, infection, scarring, pain, and nerve damage. An opportunity to ask questions prior to the procedure was permitted and all questions were answered. Patient was prepped and draped in usual sterile fashion: area cleansed with alcohol. Anesthesia: the lesion was anesthetized in a standard fashion Anesthetic: 1% lidocaine w/ epinephrine 1-100,000 buffered w/ 8.4% NaHCO3 Instrument used: DermaBlade Hemostasis achieved with: electrodesiccation Outcome: patient tolerated procedure well Outcome comment: The specimen was placed in a prelabeled formalin container to be sent for pathology Post-procedure details: sterile dressing applied and wound care instructions given Post-procedure details comment: Emphasized need to contact clinic for any signs of infection, uncontrollable bleeding, or complications. Dressing type: bandage Additional details: Photo taken Amount of lidocaine used: 1cc Specimen A - Dermatopathology exam Differential Diagnosis: BCC Check Margins: No Size of lesion: 1.2 x 1.0 cm 2. OTHER ATOPIC DERMATITIS Torso - Posterior (Back) Scaly erythematous plaques +/- dyspigmentation, lichenification, excoriations. Flaring today Discussed that atopic dermatitis is a chronic condition that can be controlled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 tissues of limb documented [facility]* Diagnosis 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 Tinnitus, unspecified laterality Temporomandibular joint disorder Temporomandibular joint disorders, unspecified [facility] Diagnosis Verruca plantaris- Primary Plantar wart Foot pain, left Pain in soft tissues of limb Neoplasm of uncertain behavior of skin documented [facility]* Diagnosis Other atopic dermatitis- Primary Neoplasm of unspecified behavior of bone, soft tissue, and skin documented [facility] N[facility]* Semaj Sanchez, DPM - 07/30/2024 9:30 AM EDT Patient: Xena Ewing : 1955 PCP: Anamika Valle MD SUBJECTIVE Patient presents today for follow up of skin lesion/neoplasm of unknown origin to the left and right foot Pt states that previous treatment of acid tx with some improvement Pt rates pain the pain on a 1-10 scale an intensity of 4 Pt presents today for followup. Allergies: Allergies Allergen Reactions Ciprofloxacin Other Reaction(s): Patient reported problems Codeine Nausea Only Other Reaction(s): GI Disturbance Other Reaction(s): Gastrointestinal upset Etodolac Other Reaction(s): itching Other Sulfa Antibiotics Hives Other Reaction(s): Unknown Past Medical History: Past Medical History: Diagnosis Date Appendicitis, acute 2021 Cramps of lower extremity at hs Osteopenia Tendonitis jeanne hands Medications: Current Outpatient Medications: cyclobenzaprine (Flexeril) 10 MG tablet, Take 10 [...] feet. Nummular lesion measuring at the left sub 3rd metatarsal has resolved and right sub 3rd metatarsal region of 0.1 cm x 0.1 cm in the right sub 5th metatarsal region of 0.05 cm x 0.05cm measuring VASC: Positive palpable pedal pulses bilaterally [...] procedure including high reoccurence rate, infection, pain andconsent given. Application of DSD post procedure. Application of salinocaine acid medication to lesion/lesions located at left foot Informed pt of risks and benefits of procedure including high reoccurence rate, infection, pain andconsent given. Application of DSD post procedure. 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 Advance Directives and Living Will Power of Rod And Tube Straightener Advance Directive Response Recorded Date/ Time Advance Directives No June 06, 2 018 3:52pm Chief Complaint and Reason for Visit Chief Complaint Screening Additional Source Comments INFORMATION SOURCE (unrecogn ized section and content) DATE CREATED AUTHOR 03/21/2018 [facility] DATE CREATED AUTHOR AUTHOR'S ORGANIZ ATION [facility] DATE CREATED AUTHOR AUTHOR'S ORGANIZ ATION 04/27/2022 [facility] DATE CREATED AUTHOR AUTHOR'S ORGANIZ ATION 01/03/2024 [facility] DATE CREATED AUTHOR AUTHOR'S ORGANIZ ATION 02/08/2024 [facility] DATE CREATED AUTHOR AUTHOR'S ORGANIZ ATION 02/13/2024 [facility] DATE CREATED AUTHOR AUTHOR'S ORGANIZ ATION 04/19/2024 Hermann Wilcox [facility] DATE CREATED AUTHOR AUTHOR'S ORGANIZ ATION 09/10/2024 [facility] DATE CREATED AUTHOR AUTHOR'S ORGANIZ ATION 09/19/2024 [facility] EPIC Care Teams (unrecognized sec tion and content) Team Status: Active Member Role Status Dates Anamika Valle MD Primary Care Provider Active Team Status: Inactive Member Role Status Dates Anamika Valle MD Primary Care Provider Active Referral Self Attending Provider Active Advice Clerk Relationship Specialty Start Date End Date Anamika Valle MD PCP - General 10/24/04 Anamika Valle MD [address] [place] [address] Referring Family Medicine 10/05/22 Advice Clerk Relationship Specialty Start Date End Date Anamika Valle MD [address] [place] [address] PCP - General Family Medicine 09/21/22 Advice Clerk Relationship Specialty Start Date End Date Anamika Valle MD [address] [place] [address] PCP - General Family Medicine 09/21/22 Team Status: Inactive Member Role Status Dates Anamika Valle MD Primary Care Provide r, Referring Provider Active Start: December 27, 2023 End: December 27, 2023 Referral Self Attending Provider Active Start: O ctober 2023 End: December 27, 2023 Advice Clerk Relationship Specialty Start Date End Date Anamika Valle MD [address] [place] [address] PCP - General Family Medicine 09/21/22 Advice Clerk Relationship Specialty Start Date End Date Anamika Valle MD [address] [facility] [place] [address] PCP - General Family Medicine 09/21/22 Advice Clerk Relationship Specialty Start Date End Date Anamika Valle MD [address] [facility] [place] [address] PCP - General Family Medicine 09/21/22 Advice Clerk Relationship Specialty Start Date End Date Anamika Valle MD [address] [facility] [place] [address] PCP - General Family Medicine 09/21/22 Advice Clerk Relationship Specialty Start Date End Date Anamika Valle MD [address] [facility] [place] [address] PCP - General Family Medicine 09/21/22 Advice Clerk Relationship Specialty Start Date End Date Anamika Valle MD [address] [facility] [place] [address] PCP - General Family Medicine 09/21/22 Advice Clerk Relationship Specialty Start Date End Date Anamika Valle MD [address] [facility] [place] [address] PCP - General Family Medicine 09/21/22 Advice Clerk Relationship Specialty Start Date End Date Anamika Valle MD [address] [facility] [place] [address] PCP - General Family Medicine 09/21/22 Advice Clerk Relationship Specialty Start Date End Date Anamika Valle MD PCP - General 10/24/04 Anamika Valle MD [address] [place] [id number] Referring Family Medicine 10/05/22 Advice Clerk Relationship Specialty Start Date End Date Anamika Valle MD PCP - General 10/24/04 Anamika Valle MD [address] [place] [address] Referring Family Medicine 10/05/22 Goals (unrecognized section [...] or prosecute any alcohol or drug abuse patient.[facility] the event this information is protected by the Federal Confidentiality of Alcohol and Drug Abuse Patient Records regulations: The Federal rules restrict any use of the information to criminally investigate or prosecute any alcohol or drug abuse patient.[facility] Hospital[facility] the event this information is protected by the Federal Confidentiality of Alcohol and Drug Abuse Patient Records regulations: The Federal rules restrict any use of the information to criminally investigate or prosecute any alcohol or drug abuse patient.[facility] Reason for Visit (unrecogniz ed section and content) Reason Comments New Patient Reason Comments Suspicious Skin Lesion Reason Comments Foot Callouses Bl callous Reason Comments Follow-up Rt lesion check Reason Comments Toenail Care Non dm nail care Reason Comments Well Women Visit Reason Comments Foot Callouses Reason Comments Plantar Warts Rt lesion biopsy Reason Comments Follow-up 14d s/p rt e/o lesio n Reason Comments Ear Problem Specialty Diagnoses / Procedures Referred By Contac t Referred To Contact Ent - Otolaryngology Diagnoses Tinnitus, unspecified laterality Procedures CONSULT TO ENT OFFICE/OUTPATIENT [facility] 60 MINUTES Anamika Valle MD [address] [id number] Phone: tel: fax: Referral ID Status Reason Start Date Expiration Date V isits Requested Visits Authorized [id number] Closed PCP Requested Referral 08/14/2024 08/14/2025 1 1 Reason Comments Follow-up 2wk lesion check FOR RECORDS PERTAINING TO PATIENTS [...] BE BASED ON THE PRIMARY CLINICAL RECORDS. [facility] [email or web address] [facility]. provides no warranty or guarantee of the accuracy or completeness of information in this document.
== END 2024-09-28 09:19 | disposition home or self-care (01) ==
LOC: RAD 09:18
PROVIDERS: PCP Family Medicine; Visit Provider Obstetrics & Gynecology
DX: Z78.0 Asymptomatic menopausal state (principal)
CPT/HCPCS: 77080

== ENCOUNTER 2024-10-26 09:46 | Outpatient (OUT) | payer MEDICARE, SELFPAY ==
--- NOTE | 2024-10-26 10:08 | CT_ITS ---
The [address] [address] Patient Name: GILLIAN HERMOSILLO MRN: [id number] date: 1955 Sex: F Assigned Patient Location: CT Current Patient Location: CT Accession/Order Number: [id number] Exam Date: 10/26/2024 11:40 Report Date: 10/26/2024 11:44 At the request of: ANAMIKA BENAVIDES MD Procedure: CT chest wo con CT CHEST WITHOUT IV CONTRAST: CLINICAL HISTORY: Lung Nodule R91.9 COMPARISON: Lung screening CT 04/02/2024 TECHNIQUE: Spiral images were obtained through the chest without IV contrast. This CT exam was performed using one or more following dose reduction techniques: Automated exposure control, adjustment of the mA and/or kV according to patient size, or use of iterative reconstruction technique. FINDINGS: Mediastinum:Right thyroid lobe nodule measuring 3.6 cm. Vascular appears normal in caliber. Pulmonary trunk appears nondilated. No pericardial effusion. No lymphadenopathy. The esophagus is grossly unremarkable. Lungs:Emphysema. No consolidation pneumothorax or pleural effusion. Mild lung scarring. Multiple postinflammatory nodules are seen involving the lungs largest measuring 6 mm within the right middle lobe series 4 image 71. No new or enlarging suspicious pulmonary nodules. Abd:No acute findings. Soft tissues/Bones: No acute findings. Osseous structures demonstrate degenerative change. CT/CT chest wo con IMPRESSION: No new or enlarging suspicious pulmonary nodules. LUNG-RADS: Category 2, Benign appearance or behavior. Management: Continue annual lung screening with LDCT in 12 months. Impression dictated by: Blake Schmidt Jr., D.O. 10/26/2024 11:44 AM Dictation Location: [employer] Electronically authenticated by: [id number] Y Date: 10/26/2024 11:44
== END 2024-10-26 09:47 | disposition home or self-care (01) ==
LOC: CT 09:47
PROVIDERS: PCP Family Medicine; Visit Provider Family Medicine
DX: R91.8 Other nonspecific abnormal finding of lung field (principal)
CPT/HCPCS: 71250

== ENCOUNTER 2024-11-02 09:49 | Emergency (ER) | payer MEDICARE, SELFPAY ==
[2024-11-02 09:55] VITALS: BP 141/94; PULSE 75; TEMP 37; O2SAT 100; BMI 21.0
--- OUTSIDE RECORDS SUMMARY | 2024-11-02 09:59 | XMS_ITS | CCD ---
Author Organization [facility] Care Team Providers Care Hvac Service Tech Name Role Phone PHYSICIAN, DEFAULT Unavailable Unavailable [...] Care Unavailable Anamika Valle Primary Care Provider [phone] MD Anamika Valle Primary Care Provider Self, Referral Attending Provider Unavailable DR ANAMIKA VALLE Admitting Unavailable MAKAYLA, DR WILLSON Attending Unavailable MAKAYLA, DR WILLSON Primary Care Unavailable MAKAYLA, DR WILLSON Consulting Unavailable DR Dnana Castle Consulting Unavailable DR ANAMIKA VALLE Primary [...] Care Unavailable DR ANAMIKA VALLE Consulting Unavailable MAKAYAL, DR WILLSON Admitting Unavailable MAKAYLA, DR WILLSON [...] Unavailable GRANT, GEORGES Admitting Unavailable Rubén MANUEL R Attending Unavailable Anamika Valle MD Primary Care Provider Anamika Valle MD Primary Care Provider Anamika Valle MD Unavailable ANAMIKA VALLE Referring Unavailable ANAMIKA VALLE Primary Care Unavailable ALEJANDRA WESTON Attending Unavailable SEMAJ SANCHEZ A Attending Unavailable SEMAJ SANCHEZ Attending Unavailable SEVERO CURRY Attending Unavailable SEMAJ SANCHEZ A Attending Unavailable BROWN, SEMAJ A Attending Unavailable BROWN, SEMAJ A Attending Unavailable BROWN, SEMAJ A Attending Unavailable ELI, SEMAJ A Attending Unavailable MARIANNA AMAYA A Attending Unavailable BARBIE SANCHEZS A Attending Unavailable EVERETT SILVA Attending Unavailable VICTORIA MARTIN Attending Unavailable SHIRIN ECSOBAR A Attending Unavailable SEMAJ SANCHEZ A Attending Unavailable Allergies Allergy Classification Reported Allergen(s) Allergy Type Date of Onset Reaction(s) Facility (20 sources) Codeine; Translations: [CODEINE] Drug Allergy 11-30-19 05 Nausea Only, Gastrointestinal irritation (disorder) [facility] (1 source) Etodolac Drug Allergy 03-21-19 17 [facility] (2 sources) no latex allergy [Other] Propensity to adverse reactions 11-30-19 05 [facility] (20 sources) Etodolac Allergy to substance 09-22-19 23 [facility] (20 sources) Sulfonamides (Antibiotic) Drug Allergy 07-14-19 22 Hives [facility] (20 sources) Other Propensity to adverse reactions 11-30-19 05 [facility] (1 source) Unable to Assess Drug allergy (disorder) 10-07-19 19 [facility] Repository (20 sources) Ciprofloxacin; Translations: [ciprofloxacin] Drug Allergy 06-02-19 25 Patient reported problems (finding) [facility] Medications Current Medications Medication Drug Class(es) Dates Sig (Normalized) Sig (Original) alendronic acid 70 mg oral tablet (4 sources) Bisphosphonate Start: 10-19-2024 End: 10-19-2025 take 1 tablet by mouth in the morning alendronate (Fosamax) 70 MG tablet Indications: Osteopenia of hip, unspecified laterality Take 1 tablet (70 mg) by mouth every 7 (seven) days Take in the morning with a full glass of water, on an empty stomach, and do not take anything else by mouth or lie down for the next 30 min. 4 tablet 11 10/19/2024 10/19/2025 Active ALPRAZolam 0.5 mg oral tablet (3 sources) [...] AT BEDTIME NEEDED FOR ANXIETY estrogens, conjugated (senior care) 0.625 mg oral tablet (3 sources) Estrogen [...] AT BEDTIME latanoprost 0.05 mg/ml ophthalmic solution (12 sources) Prostaglandin Analog Start: 08-02-2024 take 1 [...] Comment on above: Take 1 tablet by mouth every afternoon. Multi Vitamins oral tablet (2 sources) Start: 01-27-2024 take 1 tablet by mouth once daily Multi Vitamins oral tablet 1 tab(s), Oral, Daily, Refill(s) 0 Start Date: 01/27/24 Status: Ordered mupirocin 0.02 mg/mg topical ointment (1 source) RNA Synthetase Inhibitor Antibacterial Start: 10-23-2024 mupirocin (Bactroban) 2 % ointment Indications: 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 Apply to affected area daily for 7 days, 30 day supply 22 g 10/23/2024 Active Start: 10-23-2024 mupirocin (Ariela troban) 2 % ointment Indications: 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 Apply to affected area daily for 7 days, 30 day supply 22 g 10/23/2024 Active pantoprazole 40 mg delayed release oral tablet [...] on above: TAKE 1 TABLET BY DIEGO FOUR TIMES DAILY (BEFORE MEALS & AT BEDTIME ON AN EMPTY STOMACH) tiZANidine 4 mg oral tablet (20 sources) Central alpha-2 Adrenergic Agonist Start: 01-21-2023 tiZANidine (Zanaflex) 4 MG tablet 01/21/2023 Active Start: 01-21-2023 take 2 tablets by mo [facility] at bedtime tiZANidine (Zanaflex) 4 MG tablet 2 tablets Orally at bedtime for 90 days 01/21/2023 Active triamcinolone acetonide 1 mg/ml topical cream (9 sources) Corticosteroid Start: 09-16-2024 triamcinolone (Kenalog) 0.1 [...] [ALLERGY STATUS TO NARCOTIC AGENT STATUS] Onset: Episodic Coagulation and hemorrhagic disorders (2 sources) [...] (HPV); Translations: [ENC SCREENING HUMAN PAPILLOMAVIRUS] Onset: Episodic Mycoses (3 sources) Pain in toe; Translations: [Tinea unguium] 03-19-2024 Episodic Neoplasms of unspecified nature or uncertain behavior (12 sources) Neoplasm of uncertain behavior of skin; Translations: [Neoplasm of uncertain behavior of skin] 03-19-2024 Episodic Occlusion or stenosis of precerebral arteries (4 sources) Occlusion and stenosis of bilateral carotid arteries; Translations: [OCCLUSION AND STENOS JEANNE CAROTID ART] Onset: 2 Chronic Other bone disease and musculoskeletal deformities (4 sources) Osteopenia; Translations: [Other specified disorders of bone density and structure, unspecified thigh] 01-27-2024 Episodic Other circulatory disease (2 sources) [...] pain syndrome type I 01-27-2024 Chronic Other non-epithelial cancer of skin (1 source) Basal cell carcinoma of upper back; Translations: [Basal cell carcinoma of skin of other part of trunk] 10-23-2024 Episodic Other screening for suspected conditions (not mental [...] Test Name Value Interpretation Reference Range Facility Mohs surgeryon 10-23-2024 Consent obtained: written (The rationale for Mohs as well as the risks, benefits, and alternatives. The risks of infection, scarring, bleeding, prolonged wound healing, incomplete removal, allergy to anesthesia or meds, nerve injury, and recurrence were addressed.) [place] Protocol: Procedure explained and questions answered to patient or proxy's satisfaction: Yes Test results available and properly labeled: Yes Pathology report reviewed: Yes Photo or diagram used for site identification: Yes Site/side marked: Yes Anesthesia: Anesthesia method: local infiltration Local anesthetic: lidocaine 1% WITH epi and sodium bicarbonate Procedure Details: Biopsy accession number: [id number] Biopsy lab: [facility] Date of biopsy: 09/16/2024 Frozen section biopsy performed: Yes Pre-Op diagnosis: basal cell carcinoma BCC subtype: infiltrative and nodular MohsAIQ Surgical site (if tumor spans multiple areas, please select predominant area): trunk (excluding nipple/areola) Surgical site (from skin exam): Mid Back Pre-operative length (cm): 1.2 Pre-operative width (cm): 1 Indications for Mohs surgery: anatomic location where tissue conservation is critical, ill-defined borders and aggressive histology Previously treated? No Mohs Appropriate Use Criteria Score: 8 Details of micrographic surgery: Mohs accession number: [id number] Micrographic Surgery Details: Number of Mohs stages: 2 Post surgery depth of defect: subcutaneous fat Stage 1 Comments: The area was prepped with Betadine, draped in a sterile fashion, and infiltrated with local anesthetic. Sterile technique was used throughout the procedure. The marked area of clinical tumor with a small rim of clinically normal surrounding skin was removed using Mohs technique with beveled edges. Hash clark were placed for orientation of the specimen. Hemostasis was achieved with electrodessication. After hemostasis, the defect was measured and recorded, a temporary sterile dressing was placed over the wound, and the patient was escorted to the waiting area. The specimen was oriented, mapped, and if necessary, divided into sections. A Mohs map was prepared. The specimen was placed in a labeled yoan dish and was taken to the Mohs lab where it was chromacoded and processed. Mohs sections were prepared with serial tissue sections, stained, and evaluated by Dr. Martin for interpretation of deep and peripheral margins. The Mohs map was marked accordingly. Amount of lidocaine used: 3.0 cc Estimated blood loss: 1.0 cc Defect size: 2.3 x 1.5 cm Number of blocks per stage: 1 Number of positive blocks: 1 Tumor features identified on Mohs section: basal carcinoma Depth of tumor invasion after stage: subcutaneous fat Stage 2 Comments: The patient returned to the procedure room, the dressing was remove, the tumor area was re-prepped and draped, and anesthesia was assessed and augmented as necessary. A layer of tissue around the positive margin(s) was removed, and the tissue was oriented, mapped, and processed in an identical fashion as for Stage 1. Hemostasis was achieved and dressing placed as in Stage 1. The patient was escorted to the waiting area. As with Stage 1, Mohs sections were prepared with serial tissue sections, stained, and evaluated by Dr. Martni for interpretation of deep and peripheral margins. The Mohs map was updated. Assistants: Monique Hatfield MA Amount of lidocaine used: 3.0 cc Estimated blood loss: < 1.0 cc Defect size: 2.5 x 1.5 cm Number of blocks: 1 Number of positive blocks: Tumor free margins were obtained and the Mohs procedure was considered complete. Tumor features identified on Mohs section: no tumor identified Depth of tumor invasion after stage: subcutaneous fat Patient tolerance of procedure: tolerated well, no immediate complications Antibiotics: Were antibiotics given on the day of surgery?: No [facility] Skin repairon 10-23-2024 Complexity: Intermediate Final length (cm): 3.5 Informed consent: discussed and consent obtained Reason for type of repair: allow closure of the large defect Undermining: edges undermined Undermining comment: The surrounding tissue was undermined until the skin edges could be approximated without undue tension. Any tissue redundancies were removed. Subcutaneous layers (deep stitches): Suture size: 3-0 Suture type comment: Biosyn Stitches: Buried horizontal mattress (Closure was performed in a layered fashion with subcutaneous tissue closed first using tension-bearing absorbable sutures to the level of the superficial fascia.) Fine/surface layer approximation (top stitches): Suture size: 3-0 Suture type: Prolene (polypropylene) Stitches: simple running Stitches comment: Epicuticular skin sutures were then placed with minimal tension. Suture removal (days): 14 Outcome: patient tolerated procedure well with no complications Post-procedure details: sterile dressing applied and wound care instructions given Post-procedure details comment: It was emphasized to the patient to contact the office for any signs of infection, uncontrollable bleeding, or complications. Dressing type: bandage [facility] No Panel Informationon 09-16 Type of biopsy: [...] Photo taken Amount of lidocaine used: 1cc [facility] No Panel InformationOrdered By: Aydee Heart on 09-16-2024 [facility] CNOVon 09-09-2024 CNOV Office Visit (OTOLBD ) XENA EWING ([id number]) 1955 F [facility] Date Time Provider Department 09/09/24 12:00 PM ALEJANDRA WESTON OTOLBD During your visit today, we recorded the following information about you: Alejandra Weston MD 09/09/2024 4:46 PM Signed SECTION OF OTOLOGY, NEUROTOLOGY AND LATERAL SKULL BASE SURGERY Department of Otolaryngology - Head and Neck Surgery [facility] September 09, 2024 09/09/2024 Xena Ewing [...] Tobacco Use: High Risk (08/27/2024) Received from [facility] Patient History Smoking Tobacco Use: Never [...] lesions, n (more content not included)... Normal [facility] Lab Miscellaneous-LCon 03-23 Lab Miscellaneous COMMENT Invalid Interpretation Code [facility] Comment on above: Result Comment: Test Ordered: [id number] von Willebrand Genes Result Comment MNEGA PDF report to be sent separately This test was developed and its performance characteristics determined by [facility]. It has not been cleared or approved by the Food and Drug Administration. Performed at: [address] [id number] PhD Alfred Hwang Performed By: #### 1 [id number] #### [facility] [address] [place] [address] 06476 Lupus Anticoagon 02-10-2024 aPTT.lupus sensitive Coag (PPP) [Time] 29.4 second(s) Invalid Interpretation Code 0.0-43.5 [facility] Comment on above: Performed By: #### 2 [id number] #### [facility] [address] [place] [address] 03206 dRVVT Coag (PPP) [Time] 32.8 second(s) Invalid Interpretation Code 0.0-47.0 [facility] Comment on above: Performed By: #### 2 [id number] #### [facility] [address] [place] [address] 78716 Lupus anticoagulant two screening tests W Reflex Coag (PPP) [Interp] Comment: Invalid Interpretation Code [facility] Comment on above: Result Comment: No l upus anticoagulant was detected. Performed at: [address] [id number] MD Andrew Wilburn Performed By: #### 2 [id number] #### [facility] [address] [place] [address] 56068 vWF Activityon 02-10-2024 vWf ristocetin cofactor act actual/normal Platelet aggregation (PPP) [Relative time] 346 % High 50-200 [facility] Comment on above: Result Comment: Perf ormed at: [address] [id number] MD Andrew Wilburn Performed By: #### 2 [id number] #### [facility] [address] [place] [address] 13254 von Willebrand Factor (vWF) Agon 02-10-2024 vWf Ag actual/normal IA (PPP) [Relative mass conc] 368 % High 50-200 [facility] Comment on above: Result Comment: VWF may [...] developed and its performance characteristics determined by [employer]. It has not been cleared or approved by the Food and Drug Administration. Performed at: [address] [id number] MD Andrew Wilburn Performed By: #### 2 [id number] #### [facility] [address] [place] [address] COAGULATIONOrdered By: Jeffrey Nelson on 02-06-2024 Platelet function (closure time) collagen+EPINEPHrine induced (Bld) [Time] 96 s Normal 70 - 138 second(s) [facility] Comment on above: Interpretive Data: N ormal ASA vWD Glanzmann s Thrombasthenia ------- ------ ------- COL/EPI Normal Abnormal Abnormal Abnormal Col/ADP Normal Normal Abnormal Abnormal Lab Miscellaneous-LCon 02-05 Test Code 789150 Invalid Interpretation Code [facility] Comment on above: Performed By: #### 1 [id number] #### [facility] [address] [place] [address] Test Name von Willebrand Invalid Interpretation Code [facility] Comment on above: Performed By: #### 1 [id number] #### [facility] [address] [place] [address] Plt Function Assayon 024 Platelet function (closure time) collagen+EPINEPHrine induced (Bld) [Time] 96 second(s) Normal 70-138 [facility] Comment on above: Result Comment: Norm al ASA vWD Glaangus???s Thrombasthenia ------- ------ ------- COL/EPI Normal Abnormal Abnormal Abnormal Col/ADP Normal Normal Abnormal Abnormal Performed By: #### 1 [id number] #### [facility] [address] [place] [address] Reference Laboratory Testing Ordered By: Paulette Frye on 02-06-2024 Test Code 869587 1 Invalid Interpretation Code [facility] SendOuts Test Name von Willebrand Invalid Interpretation Code [facility] Summaryon 1 04-06-2023 Ambulatory [...] you for choosing us for your care. [facility] Provider Letteron 01-10-2024 Provider Letter Provider Letter January 10, 2024 XENA EWING [address] [place] [address] [address] [place] [phone] : 1955 Dear Gildardo, We have been trying to reach you with no success regarding a referral from Dr Valle. It is important that you return our call upon receiving this letter. Also, at the time of your call, please provide us with your current information. Thank you for your prompt attention to this matter. Sincerely, [facility] General Surgery [phone] [facility] MM screening mammo BI w/CADo n 12-27-2023 MM screening mammo BI w/CAD [facility] Main [address] [address] Mammography Report Signed Patient: Xena Ewing MR#: [id number] : 1955 Acct:[id number] Age/Sex: 68 / F ADM Date: 12/27/23 Loc: [place] Room: Type: REG CLI Attending Dr: Referral Self Copies to: [...] Schmidt Jr., D.O.12/27/2023 1:07 PM Dictation Location: [facility] Transcribed By: [facility] 12/27/23 1307 Dictated By: Blake Schmidt Jr, DO 12/27/23 130 Signed By: 12/27/23 1307 Normal [facility] No Panel Informationon 12-16 [facility] ACOG PANEL 2: 30 to 65on 04-26-2022 . . Normal [facility] Comment on above: Result Comment: Perf ormed at: [facility] Performed By: #### 4 [id number] #### [facility] [address] [address] [address] Kayy Virgen Age Gdln ACOG Testing 30-65 Normal [facility] Comment on above: Performed By: #### 4 [id number] #### [facility] [address] [place], [place] [address] Dr. Kayy Virgen DIAGNOSIS: Comment Normal [facility] Comment on above: Result Comment: UNSA TISFACTORY FOR EVALUATION. Performed at: WB Performed By: #### 4 [id number] #### [facility] [address] [address] [address] Kayy Virgen HPV Aptima Negative Normal Negative [facility] Comment on above: Result Comment: This nucleic acid amplification test detects fourteen high-risk HPV types (16,18,31,33,35,39,45,51,52,56,58,59,66,68) without differentiation. Performed at: =G Performed By: #### 4 [id number] #### [facility] [address] [address] [address] Kayy Virgen HPV Genotype Reflex Comment Normal [facility] Comment on above: Result Comment: Crit eria not met, HPV Genotype not performed. Performed at: WB Performed By: #### 4 [id number] #### [facility] [address] [place] [address] Dr. Kayy Virgen Methodology: Comment Normal [facility] Comment on above: Result Comment: This liquid based ThinPrep(R) pap test was screened with the use of an image guided system. Performed at: WB Performed By: #### 4 [id number] #### [facility] [address] [place] [address] Dr. Kayy Virgen Note: Comment Normal [facility] Comment on above: Result Comment: The Pap smear is a screening test designed to aid in the detection of premalignant and malignant conditions of the uterine cervix. It is not a diagnostic procedure and should not be used as the sole means of detecting cervical cancer. Both false-positive and false-negative reports do occur. . Performed at: WB Performed By: #### 4 [id number] #### [facility] [address] [place] [address] Dr. Kayy Virgen Performed by: Comment Normal [facility] Comment on above: Result Comment: Arturo Peters, Back Office Medical Assistant (ASCP) Performed at: [facility] Performed By: #### 4 [id number] #### [facility] [address] [place] [address] Dr. Kayy Virgen QC reviewed by: Comment Normal [facility] Comment on above: Result Comment: Pepe Cordova, Supervisory Back Office Medical Assistant (ASCP) Performed at: WB Performed By: #### 4 [id number] #### [facility] [address] [address] [address] Kayy Virgen Recommendation: Comment Normal [facility] Comment on above: Result Comment: Sugg est follow up as clinically appropriate. Performed at: WB Performed By: #### 4 [id number] #### [facility] [address] [address] [address] Kayy Virgen Specimen adequacy: Comment Normal [facility] Comment on above: Result Comment: Spec imen processed and examined but unsatisfactory for evaluation of epithelial abnormality because of insufficient cellularity. Performed at: WB Performed By: #### 4 [id number] #### [facility] [address] [place] [address] Dr. Kayy Virgen US THYROIDon 01-05-2022 US [...] TR 4 nodule, previously biopsied TI-RADS: The [employer] TI-RADS committee's white paper recommendations for thyroid lesions classified as TR3 (mildly suspicious) are listed below: > 1.5 cm. Follow-up ultrasound in 1, 3, and 5 years. > 2.5 cm. FNA. J. Am Anais Radiol 2017;14:587-595. Electronically authenticated by: ENIO MOHAN Date: 2022-01-05 15:25 Normal [facility] T4, T3U, FTI LABCORPon 11-10 Free Thyroxine Index 2.0 Normal 1.2-4.9 [facility] Comment on above: Performed By: #### T HYLC ####[facility] [address] [id number]. Kayy Virgen T3 Uptake 26 % Normal 24-39 [facility] Comment on above: Performed By: #### T HYLC ####[facility] [address] [id number]. Kayy Virgen T4 [Mass/Vol] 7.5 ug/dL Normal 4.5-12.0 [facility] Comment on above: Performed By: #### T HYLC ####[facility] [address] [id number]. Shereesamia Virgen CBC AUTO DIFFon 11-09-2021 BASO # 0.1 103/ul Normal 0.0-0.1 [facility] Comment on above: Performed By: #### C BC ####[facility] [address] [place], [place] [address]Dr. Kayy Virgen Basophils/100 WBC (Bld) 2.1 % Critically high 0.2-2.0 [facility] Comment on above: Performed By: #### C BC ####[facility] [address] [place], [place] [address]Dr. Shereesamia Virgen EO # 0.2 103/ul Normal 0.0-0.7 [facility] Comment on above: Performed By: #### C BC ####[facility] [address] [place], [place] [address]Dr. Kayy Virgen Eosinophils/100 WBC (Bld) 5.1 % Normal 0.9-7.0 [facility] Comment on above: Performed By: #### C BC ####[facility] [address] [place], [place] [address]Dr. Shereesamia Virgen Erythrocyte distribution width (RBC) [Ratio] 14.6 % Normal 11.0-15.0 [facility] Comment on above: Performed By: #### C BC ####[facility] [address] [place], [place] [address]Dr. Kayy Virgen Hematocrit (Bld) [Volume fraction] 38.5 % Normal 36.0-48.0 [facility] Comment on above: Performed By: #### C BC ####[facility] [address] [id number]. Kayy Virgen Hemoglobin (Bld) [Mass/Vol] 12.4 g/dL Normal 12.0-16.0 [facility] Comment on above: Performed By: #### C BC ####[facility] [address] [id number]. Kayy Virgen IG # 0.01 10e3/ul Normal 0.00-0.03 [facility] Comment on above: Performed By: #### C BC ####[facility] [address] [address]Dr. Kayy Virgen IG % 0.2 % Normal 0.0-0.5 [facility] Comment on above: Performed By: #### C BC ####[facility] [address] [address]Dr. Kayy Param LYMPH # 1.5 103/ul Normal 1.2-3.8 [facility] Comment on above: Performed By: #### C BC ####[facility] [address] [address]Dr. Kayy Param Lymphocytes/100 WBC (Bld) 33.7 % Normal 20.5-60.0 [facility] Comment on above: Performed By: #### C BC ####[facility] [address] [address]Dr. Shereesamia Virgen MANUAL DIFF REQ NO Normal [facility] Comment on above: Performed By: #### C BC ####[facility] [address] [id number]. Kayy Virgen MCH (RBC) [Entitic mass] 26.7 pg Normal 26.7-34.0 [facility] Comment on above: Performed By: #### C BC ####[facility] [address] [id number]. Kayy Param MCHC (RBC) [Mass/Vol] 32.2 g/dL Normal 29.9-35.2 [facility] Comment on above: Performed By: #### C BC ####[facility] [address] [place] [address] [phone]. Kayy Virgen MCV (RBC) [Entitic vol] 82.8 fL Normal 81.0-99.0 [facility] Comment on above: Performed By: #### C BC ####[facility] [address] [place] [address] [phone]. Kayy Virgen MONO # 0.5 103/ul Normal 0.3-0.8 [facility] Comment on above: Performed By: #### C BC ####[facility] [address] [place] [address] [phone]. Shereesamia Virgen Monocytes/100 WBC (Bld) 11.9 % Normal 1.7-12.0 [facility] Comment on above: Performed By: #### C BC ####[facility] [address] [place], [place] [address]Dr. Kayy Param NEUT # 2.0 103/ul Normal 1.4-6.5 [facility] Comment on above: Performed By: #### C BC ####[facility] [address] [place], [place] [address]Dr. Shereesamia Virgen Neutrophils/100 WBC (Bld) 47.0 % Normal 43.0-75.0 [facility] Comment on above: Performed By: #### C BC ####[facility] Mbvhntbg[address] [place], [place] [address]Dr. Kayy Virgen Platelet mean volume (Bld) [Entitic vol] 9.7 fL Normal 9.5-13.5 [facility] Comment on above: Performed By: #### C BC ####[facility] Bhsk[address]xtxs[address] [place], [place] [address]Dr. Kayy Virgen PLT 269 103/ul Normal 150-450 [facility] Comment on above: Performed By: #### C BC ####[facility] Tetwmfp[address] [place], [place] [address]Dr. Kayy Virgen RBC 4.65 106/ul Normal 4.20-5.40 [facility] Comment on above: Performed By: #### C BC ####[facility] [address] [place] [address] [phone]. Kayy Virgen WBC 4.3 103/ul Normal 4.0-11.0 [facility] Comment on above: Performed By: #### C BC ####[facility] [address] [place] [address] [phone]. Kayy Virgen GLYCOHEMOGLOBIN A1Con 2021 ADA RECOMMENDATION SEE BELOW Normal [facility] Comment on above: Result Comment: ADA RECOMMENDED LIMIT 4.0 - 6.0 ADA THERAPEUTIC TARGET < 7.0 ACTION SUGGESTED > 7.0 Performed By: #### A 1C #### [facility] [address] [place] [address] Dr. Kayy Virgen Glucose [Mass/Vol] 117 mg/dL Normal [facility] Comment on above: Performed By: #### A 1C #### [facility] [address] [place] [address] Dr. Kayy Virgen HbA1c (Bld) [Mass fraction] 5.7 % Normal 4.5-6.2 [facility] Comment on above: Performed By: #### A 1C #### [facility] [address] [place] [address] Dr. Kayy Virgen IRONon 11-09-2021 Iron [Mass/Vol] 100.0 ug/dL Normal 50.0-170.0 [facility] Comment on above: Performed By: #### I STEPHANI #### [facility] [address] [place] [address] Dr. Kayy Virgen PROF 14(COMP METB)on 022 Albumin [Mass/Vol] 4.0 g/dL Normal 3.4-5.0 [facility] Comment on above: Performed By: #### C MERRILL, TSH #### [facility] [address] [place] [address] Dr. Kayy Virgen Albumin/Globulin [Mass ratio] 1.1 {ratio} Normal [facility] Comment on above: Performed By: #### C MERRILL, TSH #### [facility] [address] [place] [address] Dr. Kayy Virgen ALP [Catalytic activity/Vol] 109 U/L Normal 46-116 [facility] Comment on above: Performed By: #### C MP, TSH #### [facility] [address] [address] [address] Kayy Virgen ALT [Catalytic activity/Vol] 26 U/L Normal 14-59 [facility] Comment on above: Performed By: #### C MP, TSH #### [facility] [address] [address] [address] Kayy Virgen Anion gap [Moles/Vol] 11.2 mmol/L Normal Th [facility] Comment on above: Performed By: #### C MP, TSH #### [facility] [address] [place] [address] Dr. Kayy Virgen AST [Catalytic activity/Vol] 58 U/L Critically high 15-37 [facility] Comment on above: Performed By: #### C MP, TSH #### [facility] [address] [address] [address] Kayy Virgen Bilirubin [Mass/Vol] 0.4 mg/dL Normal 0.2-1.0 [facility] Comment on above: Performed By: #### C MP, TSH #### [facility] [address] [place] [address] Dr. Kayy Virgen Calcium [Mass/Vol] 9.8 mg/dL Normal 8.5-10.1 [facility] Comment on above: Performed By: #### C MP, TSH #### [facility] [address] [address] [address] Kayy Virgen Chloride [Moles/Vol] 103 mmol/L Normal 98-107 [facility] Comment on above: Performed By: #### C MP, TSH #### [facility] [address] [address] [address] Kayy Virgen CO2 [Moles/Vol] 28.2 mmol/L Normal 21.0-32.0 [facility] Comment on above: Performed By: #### C MP, TSH #### [facility] [address] [place] [address] Dr. Kayy Virgen Creatinine [Mass/Vol] 0.98 mg/dL Normal 0.55-1.02 [facility] Comment on above: Performed By: #### C MP, TSH #### [facility] [address] [address] [address] Kayy Virgen EGFR-AF GAMBIAN >60 Normal >=60 [facility] Comment on above: Performed By: #### C MP, TSH #### [facility] [address] [address] [address] Kayy Virgen EGFR-NON AF GAMBIAN 57 mL/min/1.73m2 Critically low >=60 [facility] Comment on above: Performed By: #### C MP, TSH #### [facility] [address] [address] [address] Kayy Virgen Globulin (S) [Mass/Vol] 3.8 g/dL Normal [facility] Comment on above: Performed By: #### C MP, TSH #### [facility] [address] [address] [address] Kayy Virgen Glucose [Mass/Vol] 102 mg/dL Normal 74-106 [facility] Comment on above: Performed By: #### C MP, TSH #### [facility] [address] [address] [address] Kayy Virgen Potassium [Moles/Vol] 4.4 mmol/L Normal 3.5-5.1 [facility] Comment on above: Performed By: #### C MP, TSH #### [facility] [address] [address] [address] Kayy Virgen Protein [Mass/Vol] 7.8 g/dL Normal 6.4-8.2 [facility] Comment on above: Performed By: #### C MP, TSH #### [facility] [address] [address] [address] Kayy Virgen Sodium [Moles/Vol] 138 mmol/L Normal 136-145 [facility] Comment on above: Performed By: #### C MP, TSH #### [facility] [address] [address] [address] Kayy Virgen Urea nitrogen [Mass/Vol] 22.0 mg/dL Critically high 7.0-18.0 [facility] Comment on above: Performed By: #### C MP, TSH #### [facility] [address] [address] [address] Kayy Virgen Urea nitrogen/Creatinine [Mass ratio] 22.4 mg/mg Normal [facility] Comment on above: Performed By: #### C MP, TSH #### [facility] [address] [address] [address] Kayy Virgen TSHon 11-09-2021 TSH 1.200 uIU/mL Normal 0.358-3.740 [facility] Comment on above: Performed By: #### C MP, TSH #### [facility] [address] [place] [address] Dr. Kayy Virgen AMYLASEon 08-31-2021 Amylase [Catalytic activity/Vol] 34 U/L Normal 25-115 [facility] Comment on above: Performed By: #### A MY, CMP, LIPA ####[facility] [address] [address]Dr. Kayy Virgen CBC AUTO DIFFon 08-31-2021 BASO # 0.1 103/ul Normal 0.0-0.1 [facility] Comment on above: Performed By: #### C BC ####[facility] [address] [address]Dr. Kayy Virgen Basophils/100 WBC (Bld) 0.8 % Normal 0.2-2.0 [facility] Comment on above: Performed By: #### C BC ####[facility] [address] [place] [address]DrIrene Virgen EO # 0.0 103/ul Normal 0.0-0.7 [facility] Comment on above: Performed By: #### C BC ####[facility] [address] [place] [address]Dr. Kayy Virgen Eosinophils/100 WBC (Bld) 0.6 % Critically low 0.9-7.0 [facility] Comment on above: Performed By: #### C BC ####[facility] [address] [place], [place] [address]Dr. Kayy Virgen Erythrocyte distribution width (RBC) [Ratio] 13.9 % Normal 11.0-15.0 [facility] Comment on above: Performed By: #### C BC ####[facility] [address] [place], [place] [address]Dr. Kayy Virgen Hematocrit (Bld) [Volume fraction] 37.7 % Normal 36.0-48.0 [facility] Comment on above: Performed By: #### C BC ####[facility] [address] [place], [place] [address]Dr. Kayy Virgen Hemoglobin (Bld) [Mass/Vol] 12.3 g/dL Normal 12.0-16.0 [facility] Comment on above: Performed By: #### C BC ####[facility] [address] [place], [place] [address]Dr. Kayy Virgen IG # 0.02 10e3/ul Normal 0.00-0.03 [facility] Comment on above: Performed By: #### C BC ####[facility] [address] [place], [place] [address]Dr. Kayy Virgen IG % 0.3 % Normal 0.0-0.5 [facility] Comment on above: Performed By: #### C BC ####[facility] [address] [place], [place] [address]Dr. Kayy Virgen LYMPH # 1.4 103/ul Normal 1.2-3.8 [facility] Comment on above: Performed By: #### C BC ####[facility] [address] [place], [place] [address]Dr. Kayy Virgen Lymphocytes/100 WBC (Bld) 20.8 % Normal 20.5-60.0 [facility] Comment on above: Performed By: #### C BC ####[facility] [address] [place], [place] [address]Dr. Kayy Virgen MANUAL DIFF REQ NO Normal [facility] Comment on above: Performed By: #### C BC ####[facility] [address] [place] [phone]. Kayy Param MCH (RBC) [Entitic mass] 26.9 pg Normal 26.7-34.0 [facility] Comment on above: Performed By: #### C BC ####[facility] [address] [place] [phone]. Kayy Param MCHC (RBC) [Mass/Vol] 32.6 g/dL Normal 29.9-35.2 [facility] Comment on above: Performed By: #### C BC ####[facility] [address] [place] [address]Dr. Shereesamia Virgen MCV (RBC) [Entitic vol] 82.5 fL Normal 81.0-99.0 [facility] Comment on above: Performed By: #### C BC ####[facility] [address] [place], [place] [address]Dr. Kayy Virgen MONO # 0.6 103/ul Normal 0.3-0.8 [facility] Comment on above: Performed By: #### C BC ####[facility] [address] [place], [place] [address]Dr. Shereesamia Virgen Monocytes/100 WBC (Bld) 8.8 % Normal 1.7-12.0 [facility] Comment on above: Performed By: #### C BC ####[facility] [address] [place], [place] [address]Dr. Kayy Virgen NEUT # 4.5 103/ul Normal 1.4-6.5 [facility] Comment on above: Performed By: #### C BC ####[facility] [address] [place], [place] [address]Dr. Kayy Virgen Neutrophils/100 WBC (Bld) 68.7 % Normal 43.0-75.0 [facility] Comment on above: Performed By: #### C BC ####[facility] Gh[address] [place], [place] [address]Dr. Kayy Virgen Platelet mean volume (Bld) [Entitic vol] 10.2 fL Normal 9.5-13.5 [facility] Comment on above: Performed By: #### C BC ####[facility] [address] [place], [place] [address]Hb. Kayy Virgen PLT 265 103/ul Normal 150-450 [facility] Comment on above: Performed By: #### C BC ####[facility] [address] [place], [place] [address]Yd. Kayy Virgen RBC 4.57 106/ul Normal 4.20-5.40 [facility] Comment on above: Performed By: #### C BC ####[facility] [address] [place], [place] [address]Cl. Kayy Virgen WBC 6.5 103/ul Normal 4.0-11.0 [facility] Comment on above: Performed By: #### C BC ####[facility] [address] [place], [place] [address]Do. Kayy Virgen CT ABD/PELVIS WO CONon 08-31 [...] DANNA CASTLE Date: 2021-08-31 12:25 Normal [facility] ER URINE PROFILEon 2 Bilirubin Ql (U) Negative Normal NEGATIVE The [facility] Comment on above: Performed By: #### E RUR #### [facility] [address] [place] [address] Dr. Kayy Virgen Clarity (U) CLEAR Normal CLEAR [facility] Comment on above: Performed By: #### E RUR #### [facility] [address] [place] [address] Dr. Kayy Virgen Color (U) LT. YELLOW Normal YELLOW [facility] Comment on above: Performed By: #### E RUR #### [facility] [address] [place] [address] Dr. Kayy CABRERA A micrscopic examination will be performed if indicated. Normal [facility] Comment on above: Performed By: #### E RUR #### [facility] [address] [place] [address] Dr. Kayy Virgen Glucose Ql (U) Negative Normal NEGATIVE [facility] Comment on above: Performed By: #### E RUR #### [facility] [address] [place] [address] Dr. Kayy Virgen Hemoglobin Ql (U) Negative Normal NEGATIVE [facility] Comment on above: Performed By: #### E RUR #### [facility] [address] [place] [address] Dr. Kayy Virgen Ketones Ql (U) Negative Normal NEGATIVE [facility] Comment on above: Performed By: #### E RUR #### [facility] [address] [place] [address] Dr. Kayy Virgen LEUKOCYTES Negative Normal NEGATIVE [facility] Comment on above: Performed By: #### E RUR #### [facility] [address] [place] [address] Dr. Kayy Virgen Nitrite Ql (U) Negative Normal NEGATIVE [facility] Comment on above: Performed By: #### E RUR #### [facility] [address] [address] [address] Kayy Virgen pH (U) 6.0 [pH] Normal 5-9 [facility] Comment on above: Performed By: #### E RUR #### [facility] [address] [address] [address] Kayy Virgen SPEC GRAVITY <=1.005 Abnormal 1.005-<=1.[address] [place] [address] Comment on above: Performed By: #### E RUR #### [facility] [address] [address] [address] Kayy Virgen UA PROTEIN Negative Normal NEGATIVE/ TRACE [facility] Comment on above: Performed By: #### E RUR #### [facility] [address] [place] [address] Dr. aKyy Virgen UR MICRO IND NOT INDICATED Normal [facility] Comment on above: Performed By: #### E RUR #### [facility] [address] [place] [address] Dr. Kayy Virgen Urobilinogen Qn (U) 0.2 {Cuauhtemoc'U}/dL Normal 0.2 - 1. 0 [facility] Comment on above: Performed By: #### E RUR #### [facility] [address] [place] [address] Dr. Kayy Virgen LIPASEon 08-31-2021 Lipase [Catalytic activity/Vol] 73.0 U/L Normal 73.0-393.0 [facility] Comment on above: Performed By: #### A MY, CMP, LIPA #### [facility] [address] [address] [address] Kayy Virgen PROF 14(COMP METB)on 022 Albumin [Mass/Vol] 3.6 g/dL Normal 3.4-5.0 [facility] Comment on above: Performed By: #### A MY, CMP, LIPA ####[facility] [address] [place] [address]Dr. Kayy Virgen Albumin/Globulin [Mass ratio] 0.9 {ratio} Normal [facility] Comment on above: Performed By: #### A MY, CMP, LIPA ####[facility] [address] [address]Dr. Kayy Virgen ALP [Catalytic activity/Vol] 98 U/L Normal 46-116 [facility] Comment on above: Performed By: #### A MY, CMP, LIPA ####[facility] [address] [place] [address]Dr. Kayy Virgen ALT [Catalytic activity/Vol] 22 U/L Normal 14-59 [facility] Comment on above: Performed By: #### A MY, CMP, LIPA ####[facility] [address] [place] [address]Dr. Kayy Virgen Anion gap [Moles/Vol] 12.6 mmol/L Normal [facility] Comment on above: Performed By: #### A MY, CMP, LIPA ####[facility] [address] [place] [address]Dr. Kayy Virgen AST [Catalytic activity/Vol] 44 U/L Critically high 15-37 [facility] Comment on above: Performed By: #### A MY, CMP, LIPA ####[facility] [address] [place] [address]Dr. Kayy Virgen Bilirubin [Mass/Vol] 0.5 mg/dL Normal 0.2-1.0 [facility] Comment on above: Performed By: #### A MY, CMP, LIPA ####[facility] [address] [place] [address]Dr. Kayy Virgen Calcium [Mass/Vol] 9.2 mg/dL Normal 8.5-10.1 [facility] Comment on above: Performed By: #### A MY, CMP, LIPA ####[facility] [address] [address]Dr. Kayy Virgen Chloride [Moles/Vol] 104 mmol/L Normal 98-107 [facility] Comment on above: Performed By: #### A MY, CMP, LIPA ####[facility] [address] [place] [id number]. Kayy Virgen CO2 [Moles/Vol] 24.3 mmol/L Normal 21.0-32.[address] [facility] Comment on above: Performed By: #### A MY, CMP, LIPA ####[facility] [address] [place] [address]Dr. Kayy Virgen Creatinine [Mass/Vol] 0.87 mg/dL Normal 0.55-1.02 [facility] Comment on above: Performed By: #### A MY, CMP, LIPA ####[facility] [address] [address]Dr. Kayy Virgen EGFR-AF GAMBIAN >60 Normal >=[address] [facility] Comment on above: Performed By: #### A MY, CMP, LIPA ####[facility] [address] [place] [address]Dr. Kayy Param EGFR-NON AF GAMBIAN >60 Normal >=60 [facility] Comment on above: Performed By: #### A MY, CMP, LIPA ####[facility] [address] [place] [address]Dr. Kayy Virgen Globulin (S) [Mass/Vol] 4.0 g/dL Normal [facility] Comment on above: Performed By: #### A MY, CMP, LIPA ####[facility] [address] [place] [address]Dr. Kayy Virgen Glucose [Mass/Vol] 96 mg/dL Normal 74-106 [facility] Comment on above: Performed By: #### A MY, CMP, LIPA ####[facility] [address] [place] [address]Dr. Kayy Virgen Potassium [Moles/Vol] 3.9 mmol/L Normal 3.5-5.1 [facility] Comment on above: Performed By: #### A MY, CMP, LIPA ####[facility] [address] [place] [address]Dr. Kayy Param Protein [Mass/Vol] 7.6 g/dL Normal 6.4-8.2 [facility] Comment on above: Performed By: #### A MY, CMP, LIPA ####[facility] [address] [place], [place] [address]Kh. Kayy Virgen Sodium [Moles/Vol] 137 mmol/L Normal 136-145 [facility] Comment on above: Performed By: #### A MY, CMP, LIPA ####[facility] [address] [place], [place] [address]Es. Kayy Virgen Urea nitrogen [Mass/Vol] 11.0 mg/dL Normal 7.0-18.0 [facility] Comment on above: Performed By: #### A MY, CMP, LIPA ####[facility] [address] [place], [place] [address]Rn. Kayy Virgen Urea nitrogen/Creatinine [Mass ratio] 12.6 mg/mg Normal [facility] Comment on above: Performed By: #### A MY, CMP, LIPA ####[facility] [address] [place], [place] [address]Tm. Kayy Virgen US THYROID FN ASP BXon 07-05 US THYROID FN ASP BX Begin Addendum #1 COLLECTED DATE/TIME: 06/29/2021 13:56 EDT Final Diagnosis Report for [place], [place] (A/B) RIGHT THYROID NODULE; FINE NEEDLE [...] 2. Pathology results are pending. Normal [facility] US THYROIDon 06-21-2021 US THYROID EXAMINATION: US [...] nodule. Fine needle aspiration recommended TI-RADS: The [employer] TI-RADS committee's white paper recommendations for thyroid lesions classified as TR4 (moderately suspicious) are listed below: > 1.0 cm. Follow-up ultrasound in 1, 2, 3, and 5 years. > 1.5 cm. FNA. J. Am Anais Radiol 2017;14:[id number]. Electronically authenticated by: ENIO MOHAN Date: 2021-06-21 12:10 Normal [facility] US CAROTID ART BILon 022 US CAROTID [...] DANNA CASTLE Date: 2021-06-08 13:16 Normal [facility] Blood Occult Stool Screen #1 on 10-13-2019 Date, Stool #1 [id number] [facility] [place], [place] Date, Stool #2 [...] [place], [place] Time, Stool #3 NOT REPORTED [facility]- [place], [place] Occult Blood, Fecalon 2019 Occult Blood 1 Negative Normal NEG [facility] in Hospital Comment on above: Performed By: #### O BN #### [facility] [address] [place] [address] [address] Mechanic: Elisabeth Worthy MD Specimen 1 Date [facility] Comment on above: Performed By: #### O BN #### [facility] [address] [place] [address] [address] Mechanic: Elisabeth Wrothy MD Specimen 1 Time 1199 [facility] Comment on above: Performed By: #### O BN #### [facility] [address] [place] [address] [address] Mechanic: Elisabeth Worthy MD Specimen 2 Date NOT REPORTED Normal [facility] Comment on above: Performed By: #### O BN #### [facility] [address] [place] [address] [address] [employer] Mechanic: Elisabeth Worthy MD Specimen 2 Time NOT REPORTED Normal [facility] Comment on above: Performed By: #### O BN #### [facility] [address] [place] [address] [address] Mechanic: Elisabeth Worthy MD Specimen 3 Date NOT REPORTED Normal [facility] Comment on above: Performed By: #### O BN #### [facility] [address] [place], [place] [id number] [employer] Mechanic: Elisabeth Worthy MD Specimen 3 Time NOT REPORTED Normal [facility] Comment on above: Performed By: #### O BN #### [facility] [address] [place], [place] [id number] [employer] Mechanic: Elisabeth Worthy MD Occult Blood 2 NOT REPORTED Normal NEG [facility] Comment on above: Performed By: #### O BN #### [facility] [address] [place] [address] [address] Mechanic: Elisabeth Worthy MD Occult Blood 3 NOT REPORTED Normal NEG [facility] Comment on above: Performed By: #### O BN #### [facility] [address] [place] [id number] [employer] Mechanic: Elisabeth Worthy MD Free Thyroxine Indexon 10-07 FTI Ratio 2.0 ug/dL Normal 1.4-3.1 [facility] Comment on above: Performed By: #### Jeramie PAUL FE #### [address] [id number] [address] [employer] Mechanic: Otoniel Ash MD #### TSH, LIPR, CP, GLYHGB, CDP #### [facility] [address] [place] [address] [address] Mechanic: Elisabeth Worthy MD T4 [Mass/Vol] 29.74 % Normal 22.5-37.0 [facility] Comment on above: Performed By: #### F HUMBERTO, FE #### [address] [id number] [address] [employer] Mechanic: Otoniel Ash MD #### TSH, LIPR, CP, GLYHGB, CDP #### [facility] [address] [place] [address] [address] Mechanic: Elisabeth Worthy MD T4 [Mass/Vol] 6.6 ug/dL Normal 4.5-10.9 [facility] Comment on above: Performed By: #### F TI, FE #### [facility] [address] [place], [place] [id number] Railroad Track Mechanic: Otoniel Ash MD #### TSH, LIPR, CP, GLYHGB, CDP #### [facility] [address] [place] [address] [address] Mechanic: Elisabeth Worthy MD Ironon 10-08-2019 Iron [Mass/Vol] 73 ug/dL Normal 37-145 [facility] Comment on above: Performed By: #### F TI, FE #### [facility] [address] [place], [place] [id number] Railroad Track Mechanic: Otoniel Ash MD #### TSH, LIPR, CP, GLYHGB, CDP #### [facility] [address] [place] [address] [address] Mechanic: Elisabeth Worthy MD T3 uptake and FTIon 10-08-19 Free Thyroxine Index 2 ug/dL 1.4 - 3 .1 ug/dL [place] T4 [Mass/Vol] 29.74 % 22.5 - 37 % [place] T4, Total 6.6 ug/dL 4.5 - 10.9 ug/dL [place] CBC Auto Differentialon 09-16 Basophils (Bld) [#/Vol] 0.07 10*3/uL [place] Basophils/100 WBC (Bld) 1 % 0 - 2 % [place] Differential Type NOT REPORTED [place] Eosinophils (Bld) [#/Vol] 0.06 10*3/uL [place] Eosinophils/100 WBC (Bld) 1 % 1 - 4 % [place] Erythrocyte distribution width (RBC) [Ratio] 14.5 % High 11.8 - 14.4 % [place] Hematocrit (Bld) [Volume fraction] 42.4 % 36.3 - 47.1 % [place] Hemoglobin (Bld) [Mass/Vol] 13.2 g/dL 11.9 - 15.1 g/dL [place] Immature granulocytes (Bld) [#/Vol] 10*3/uL [place] Immature granulocytes (Bld) [#/Vol] 0 % 0 [place] Interpretation and review of laboratory results Abnormal [place] Lymphocytes (Bld) [#/Vol] 1.87 10*3/uL [place] Lymphocytes/100 WBC (Bld) 33 % 24 - 43 % [place] MCH (RBC) [Entitic mass] 26.1 pg 25.2 - 33.5 pg [place] MCHC (RBC) [Mass/Vol] 31.1 g/dL 28.4 - 34.8 g/dL [place] MCV (RBC) [Entitic vol] 84.0 fL 82.6 - 102.9 fL [place] Monocytes (Bld) [#/Vol] 0.45 10*3/uL [place] Monocytes/100 WBC (Bld) 8 % 3 - 12 % [place] Platelet mean volume (Bld) [Entitic vol] 10.1 fL 8.1 - 13.5 fL [place] Platelets (Bld) [#/Vol] 270 10*3/uL [place] Platelets (Bld) [#/Vol] NOT REPORTED [place] RBC (Bld) [#/Vol] 5.05 10*6/uL 3.95 - 5.1 1 m/uL [place] RBC morphology finding Nom (Bld) NOT REPORTED [place] Segmented neutrophils/100 WBC (Bld) 57 % 36 - 65 % [place] Segs Absolute 3.17 [place] WBC (Bld) [#/Vol] 5.6 10*3/uL [place] WBC (Bld) [#/Vol] 0.0 10*3/uL 0.0 per 10 0 WBC [place] WBC Morphology NOT REPORTED [place] CBC with Diffon 10-07-2019 Abs. Basophil 0.07 k/uL Normal 0.00-0.20 [facility] Comment on above: Performed By: #### F TI, FE #### [address] [address] [address] [employer] Mechanic: Otoniel Ash MD #### TSH, LIPR, CP, GLYHGB, CDP #### [facility] [address] [place] [address] [place] [address] [employer] Mechanic: Elisabeth Worthy MD Abs.Imm.Granulocyte <0.03 Normal 0.00-0.30 [facility] Comment on above: Performed By: #### F TI, FE #### [place] [address] [address] [employer] Mechanic: Otoniel Ash MD #### TSH, LIPR, CP, GLYHGB, CDP #### [facility] [address] [place] [address] [place] [phone] [employer] Mechanic: Elisabeth Worthy MD Abs.Neutrophil (Seg) 3.17 k/uL Normal 1.50-8.[address] [facility] Comment on above: Performed By: #### F TI, FE #### [place] [address] [address] [employer] Mechanic: Otoniel Ash MD #### TSH, LIPR, CP, GLYHGB, CDP #### [address] [place] [phone] [employer] Mechanic: Elisabeth Worthy MD Basophils/100 WBC (Bld) 1 % Normal 0-2 [facility] Comment on above: Performed By: #### F TI, FE #### [address] [address] [address] Mechanic: Otoniel Ash MD #### TSH, LIPR, CP, GLYHGB, CDP #### [facility] [address] [place] [phone] [employer] Mechanic: Elisabeth Worthy MD Eosinophils (Bld) [#/Vol] 0.06 10*3/uL Normal 0.00-0.44 [facility] Comment on above: Performed By: #### F TI, FE #### [address] [id number] [address] [employer] Mechanic: Otoniel Ash MD #### TSH, LIPR, CP, GLYHGB, CDP #### [address] [place] [phone] [employer] Mechanic: Elisabeth Worthy MD Eosinophils/100 WBC (Bld) 1 % Normal 1-4 [facility] Comment on above: Performed By: #### F TI, FE #### [address] [address] [address] Mechanic: Otoniel Ash MD #### TSH, LIPR, CP, GLYHGB, CDP #### [address] [place] [phone] [employer] Mechanic: Elisabeth Worthy MD Erythrocyte distribution width (RBC) [Ratio] 14.5 % High 11.8-14.4 [facility] Comment on above: Performed By: #### F TI, FE #### [address] [id number] [address] [employer] Mechanic: Otoniel Ash MD #### TSH, LIPR, CP, GLYHGB, CDP #### [address] [place] [phone] [employer] Mechanic: Elisabeth Worthy MD Hematocrit (Bld) [Volume fraction] 42.4 % Normal 36.3-47.1 [facility] Comment on above: Performed By: #### F TI, FE #### [address] [id number] [address] [employer] Mechanic: Otoniel Ash MD #### TSH, LIPR, CP, GLYHGB, CDP #### [address] [place] [address] [address] Mechanic: Elisabeth Worthy MD Hemoglobin (Bld) [Mass/Vol] 13.2 g/dL Normal 11.9-15.1 [facility] Comment on above: Performed By: #### F TI, FE #### [address] [id number] [address] [employer] Mechanic: Otoniel Ash MD #### TSH, LIPR, CP, GLYHGB, CDP #### [address] [place] [phone] [employer] Mechanic: Elisabeth Worthy MD Immature granulocytes (Bld) [#/Vol] 0 % Normal 0 [facility] Comment on above: Performed By: #### F TI, FE #### [address] [id number] [address] [employer] Mechanic: Otoniel Ash MD #### TSH, LIPR, CP, GLYHGB, CDP #### [address] [place] [phone] [employer] Mechanic: Elisabeth Worthy MD Lymphocytes (Bld) [#/Vol] 1.87 10*3/uL Normal 1.10-3.70 [facility] Comment on above: Performed By: #### F TI, FE #### [address] [id number] [address] [employer] Mechanic: Otoniel Ash MD #### TSH, LIPR, CP, GLYHGB, CDP #### [address] [place] [address] [address] Mechanic: Elisabeth Worthy MD Lymphocytes/100 WBC (Bld) 33 % Normal 24-43 [facility] Comment on above: Performed By: #### F TI, FE #### [address] [id number] [address] [employer] Mechanic: Otoniel Ash MD #### TSH, LIPR, CP, GLYHGB, CDP #### [address] [place] [phone] [employer] Mechanic: Elisabeth Worthy MD MCH (RBC) [Entitic mass] 26.1 pg Normal 25.2-33.5 [facility] Comment on above: Performed By: #### F TI, FE #### [address] [address] [address] Mechanic: Otoniel Ash MD #### TSH, LIPR, CP, GLYHGB, CDP #### [address] [place] [phone] [employer] Mechanic: Elisabeth Worthy MD MCHC (RBC) [Mass/Vol] 31.1 g/dL Normal 28.4-34.[address] [facility] Comment on above: Performed By: #### F TI, FE #### [address] [address] [address] Mechanic: Otoniel Ash MD #### TSH, LIPR, CP, GLYHGB, CDP #### [address] [place] [phone] [employer] Mechanic: Elisabeth Worthy MD MCV (RBC) [Entitic vol] 84.0 fL Normal 82.6-102.9 [facility] Comment on above: Performed By: #### F TI, FE #### [address] [id number] [address] [employer] Mechanic: Otoniel Ash MD #### TSH, LIPR, CP, GLYHGB, CDP #### [address] [place] [phone] [employer] Mechanic: Elisabeth Worthy MD Monocytes (Bld) [#/Vol] 0.45 10*3/uL Normal 0.10-1.20 [facility] Comment on above: Performed By: #### F TI, FE #### [place] [id number] [place] [address] [address] [employer] Mechanic: Otoniel Ash MD #### TSH, LIPR, CP, GLYHGB, CDP #### [facility] [address] [place], [place] [phone] [employer] Mechanic: Elisabeth Worthy MD Monocytes/100 WBC (Bld) 8 % Normal 3-12 [facility] Comment on above: Performed By: #### F TI, FE #### [address] [phone] [address] [employer] Mechanic: Otoniel Ash MD #### TSH, LIPR, CP, GLYHGB, CDP #### [address] [place] [phone] [employer] Mechanic: Elisabeth Worthy MD Neutrophil (Seg) 57 % Normal 36-65 [facility] Comment on above: Performed By: #### F TI, FE #### [address] [address] [address] Mechanic: Otoniel Ash MD #### TSH, LIPR, CP, GLYHGB, CDP #### [address] [place] [phone] [employer] Mechanic: Elisabeth Worthy MD NRBC Automated 0.0 per 100 WBC Normal 0.0 [facility] Comment on above: Performed By: #### F TI, FE #### [address] [address] [address] [employer] Mechanic: Otoniel Ash MD #### TSH, LIPR, CP, GLYHGB, CDP #### [facility] [address] [place], [place] [id number] [employer] Mechanic: Elisabeth Worthy MD Platelet mean volume (Bld) [Entitic vol] 10.1 fL Normal 8.1-13.5 [facility] Comment on above: Performed By: #### F TI, FE #### [address] [address] [address] Mechanic: Otoniel Ash MD #### TSH, LIPR, CP, GLYHGB, CDP #### [address] [place], [place] [phone] [employer] Mechanic: Elisabeth Worthy MD Platelets (Bld) [#/Vol] 270 10*3/uL Normal 138-453 [facility] Comment on above: Performed By: #### F TI, FE #### [address] [address] [address] Mechanic: Otoniel Ash MD #### TSH, LIPR, CP, GLYHGB, CDP #### [address] [place] [phone] [employer] Mechanic: Elisabeth Worthy MD RBC (Bld) [#/Vol] 5.05 10*6/uL Normal 3.95-5.11 [facility] Comment on above: Performed By: #### F TI, FE #### [address] [address] [address] [employer] Mechanic: Otoniel Ash MD #### TSH, LIPR, CP, GLYHGB, CDP #### [address] [place] [phone] [employer] Mechanic: Elisabeth Worthy MD WBC (Bld) [#/Vol] 5.6 10*3/uL Normal 3.5-11.3 [facility] Comment on above: Performed By: #### F TI, FE #### [address] [address] [address] [employer] Mechanic: Otoniel Ash MD #### TSH, LIPR, CP, GLYHGB, CDP #### [address] [place] [phone] [employer] Mechanic: Elisabeth Worthy MD Auto Diff Performed NOT REPORTED Normal [facility] Comment on above: Performed By: #### F TI, FE #### [address] [address] [address] [employer] Mechanic: Otoniel Ash MD #### TSH, LIPR, CP, GLYHGB, CDP #### [address] [place] [phone] [employer] Mechanic: Elisabeth Worthy MD Platelets (Bld) [#/Vol] NOT REPORTED Normal [facility] Comment on above: Performed By: #### F TI, FE #### [address] [address] [address] Mechanic: Otoniel Ash MD #### TSH, LIPR, CP, GLYHGB, CDP #### [address] [place] [address] [address] [employer] Mechanic: Elisabeth Worthy MD RBC morphology finding Nom (Bld) NOT REPORTED Normal [facility] Comment on above: Performed By: #### F TI, FE #### [address] [address] [address] Mechanic: Otoniel Ash MD #### TSH, LIPR, CP, GLYHGB, CDP #### [address] [place] [phone] [employer] Mechanic: Elisabeth Worthy MD WBC Morphology NOT REPORTED Normal [facility] Comment on above: Performed By: #### F TI, FE #### [address] [address] [address] Mechanic: Otoniel Ash MD #### TSH, LIPR, CP, GLYHGB, CDP #### [address] [place] [phone] [employer] Mechanic: Elisabeth Worthy MD Comp Metabolic Profon 2019 (cont.) Normal [facility] Comment on above: Result Comment: Aver age GFR for 60-69 years old: 85 mL/min/1.73sq m Chronic Kidney Disease: <60 mL/min/1.73sq m Kidney failure: <15 mL/min/1.73sq m eGFR calculated using average adult body mass. Additional eGFR calculator available at: http://www.[employer]/multiple_crcl_2011.htm Performed By: #### F TI, FE #### [address] [address] [address] Mechanic: Otoniel Ash MD #### TSH, LIPR, CP, GLYHGB, CDP #### [facility] [address] [place] [address] [address] Mechanic: Elisabeth Worthy MD Albumin [Mass/Vol] 4.5 g/dL Normal 3.5-5.2 [facility] Comment on above: Performed By: #### F TI, FE #### [address] [address] [address] [employer] Mechanic: Otoniel Ash MD #### TSH, LIPR, CP, GLYHGB, CDP #### [facility] [address] [place] [address] [address] Mechanic: Elisabeth Worthy MD Albumin/Globulin [Mass ratio] 1.4 {ratio} Normal 1.0-2.5 [facility] Comment on above: Performed By: #### F TI, FE #### [address] [address] [address] [employer] Mechanic: Otoniel Ash MD #### TSH, LIPR, CP, GLYHGB, CDP #### [facility] [address] [place] [address] [address] Mechanic: Elisabeth Worthy MD Alkaline Phos 94 U/L Normal 35-104 [facility] Comment on above: Performed By: #### F TI, FE #### [address] [address] [address] [employer] Mechanic: Otoniel Ash MD #### TSH, LIPR, CP, GLYHGB, CDP #### [facility] [address] [place], [place] [phone] [employer] Track Mechanic: Elisabeth Worthy MD ALT [Catalytic activity/Vol] 10 U/L Normal 5-33 [facility] Comment on above: Performed By: #### F TI, FE #### [address] [address] [address] Mechanic: Otoniel Ash MD #### TSH, LIPR, CP, GLYHGB, CDP #### [address] [place], [place] [phone] [employer] Track Mechanic: Elisabeth Worthy MD Anion gap [Moles/Vol] 12 mmol/L Normal 9-[address] [facility] Comment on above: Performed By: #### F TI, FE #### [address] [address] [address] Mechanic: Otoniel Ash MD #### TSH, LIPR, CP, GLYHGB, CDP #### [address] [place], [place] [phone] [employer] Track Mechanic: Elisabeth Worthy MD AST [Catalytic activity/Vol] 40 U/L High <32 [facility] Comment on above: Performed By: #### F TI, FE #### [address] [address] [address] [employer] Mechanic: Otoniel Ash MD #### TSH, LIPR, CP, GLYHGB, CDP #### [address] [place], [place] 7303283 [employer] Mechanic: Elisabeth Worthy MD Bilirubin Ql (U) 0.27 mg/dL Low 0.3-1.2 [facility] Comment on above: Performed By: #### F TI, FE #### [address] [address] [address] Mechanic: Otoniel Ash MD #### TSH, LIPR, CP, GLYHGB, CDP #### [facility] [address] [place], [place] [phone] [employer] Track Mechanic: Elisabeth Worthy MD BUN/CRE Ratio 22 High 9-20 [facility] Comment on above: Performed By: #### F TI, FE #### [address] [address] [address] Mechanic: Otoniel Ash MD #### TSH, LIPR, CP, GLYHGB, CDP #### [facility] [address] [place] [place] [address] [place]. [place], [place] [phone] [employer] Mechanic: Elisabeth Worthy MD Calcium [Mass/Vol] 10.0 mg/dL Normal 8.6-10.4 [facility] Comment on above: Performed By: #### F TI, FE #### [address] [address] [address] Mechanic: Otoniel Ash MD #### TSH, LIPR, CP, GLYHGB, CDP #### [facility] [address] [place] [address] Dr. [place], [place] [phone] [employer] Track Mechanic: Elisabeth Worthy MD Chloride [Moles/Vol] 105 mmol/L Normal 98-[address] [facility] Comment on above: Performed By: #### F TI, FE #### [address] [address] [address] Mechanic: Otoniel Ash MD #### TSH, LIPR, CP, GLYHGB, CDP #### [facility] [address] [place] [place] [address] [place], [place] [phone] [employer] Track Mechanic: Elisabeth Worthy MD CO2 [Moles/Vol] 21 mmol/L Normal 20-31 [facility] Comment on above: Performed By: #### F TI, FE #### [address] [address] [address] Mechanic: Otoniel Ash MD #### TSH, LIPR, CP, GLYHGB, CDP #### [address] [place], [place] 0805183 [employer] Track Mechanic: Elisabeth Worthy MD Creatinine [Mass/Vol] 0.79 mg/dL Normal 0.50-0.[address] [facility] Comment on above: Performed By: #### F TI, FE #### [address] [address] [address] Mechanic: Otoniel Ash MD #### TSH, LIPR, CP, GLYHGB, CDP #### [facility] [address] [place] [address] [place] [address] [address] Mechanic: Elisabeth Worthy MD GFR, Amer >60 Normal >60 [facility] Comment on above: Performed By: #### F TI, FE #### [address] [address] [address] Mechanic: Otoniel Ash MD #### TSH, LIPR, CP, GLYHGB, CDP #### [facility] [address] [place] [place] [address] [place]. [place], [place] [phone] [employer] Mechanic: Elisabeth Worthy MD GFR,non Amer >60 Normal >[address] [facility] Comment on above: Performed By: #### F TI, FE #### [address] [address] [address] Mechanic: Otoniel Ash MD #### TSH, LIPR, CP, GLYHGB, CDP #### [address] [place] [address] [address] Mechanic: Elisabeth Worthy MD Glucose [Mass/Vol] 99 mg/dL Normal 70-99 [facility] Comment on above: Performed By: #### F TI, FE #### [address] [address] [address] Mechanic: Otoniel Ash MD #### TSH, LIPR, CP, GLYHGB, CDP #### [address] [place], [place] [phone] [employer] Track Mechanic: Elisabeth Worthy MD Potassium [Moles/Vol] 4.1 mmol/L Normal 3.7-5.[address] [facility] Comment on above: Performed By: #### F TI, FE #### [address] [address] [address] Mechanic: Otoniel Ash MD #### TSH, LIPR, CP, GLYHGB, CDP #### [facility] [address] [place] [address] Dr. [place], [place] [phone] [employer] Mechanic: Elisabeth Worthy MD Protein [Mass/Vol] 7.7 g/dL Normal 6.4-8.3 [facility] Comment on above: Performed By: #### F TI, FE #### [address] [address] [address] Mechanic: Otoniel Ash MD #### TSH, LIPR, CP, GLYHGB, CDP #### [address] [place], [place] 2874483 [employer] Track Mechanic: Elisabeth Worthy MD Sodium [Moles/Vol] 138 mmol/L Normal 135-144 [facility] Comment on above: Performed By: #### F TI, FE #### [address] [address] [address] Mechanic: Otoniel Ash MD #### TSH, LIPR, CP, GLYHGB, CDP #### [address] [place], [place] [phone] [employer] Track Mechanic: Elisabeth Worthy MD Staging: Normal [facility] Comment on above: Result Comment: Stag e 1: Some kidney damage normal GFR Stage 2: Mild kidney damage GFR 60-89 Stage 3: Moderate kidney damage GFR 30-59 Stage 4: Severe kidney damage GFR 15-29 Stage 5: Severe kidney damage GFR <15 ESRD - chronic treatment by dialysis or transplant Performed By: #### F TI, FE #### [facility] [address] [place], [place] [id number] Railroad Track Mechanic: Otoinel Ash MD #### TSH, LIPR, CP, GLYHGB, CDP #### [facility] [address] [place] [address] [address] Mechanic: Elisabeth Worthy MD Urea nitrogen [Mass/Vol] 17 mg/dL Normal 8- [facility] Comment on above: Performed By: #### F TI, FE #### [facility] [address] [place], [place] [phone] [employer] Track Mechanic: Otoniel Ash MD #### TSH, LIPR, CP, GLYHGB, CDP #### [facility] [address] [place] [address] [address] Mechanic: Elisabeth Worthy MD Comprehensive Metabolic Pane [facility] 10-07-2019 Albumin [Mass/Vol] 4.5 g/dL 3.5 - 5.2 g/dL [place] Albumin/Globulin [Mass ratio] 1.4 {ratio} [place] ALP [Catalytic activity/Vol] 94 U/L 35 - 104 U/L [place] ALT [Catalytic activity/Vol] 10 U/L 5 - 33 U/L [place] Anion gap [Moles/Vol] 12 mmol/L 9 - 17 mmol/L [place] AST [Catalytic activity/Vol] 40 U/L High <32 [place] Bilirubin Ql (U) 0.27 mg/dL Low 0.3 - 1.2 mg/dL [place] Bun/Cre Ratio 22 High [place] Calcium [Mass/Vol] 10.0 mg/dL 8.6 - 10. 4 mg/dL [place] Chloride [Moles/Vol] 105 mmol/L 98 - 10 7 mmol/L [place] CO2 [Moles/Vol] 21 mmol/L 20 - 31 mmol/L [place] Creatinine [Mass/Vol] 0.79 mg/dL 0.5 - 0.9 mg/dL [place] GFR >60 >60 mL/min [place] GFR Non- >60 >60 mL/min [place] Glucose [Mass/Vol] 99 mg/dL 70 - 99 mg/dL [place] Potassium [Moles/Vol] 4.1 mmol/L 3.7 - 5.3 mmol/L [place] Protein [Mass/Vol] 7.7 g/dL 6.4 - 8.3 g/dL [place] Sodium [Moles/Vol] 138 mmol/L 135 - 144 mmol/L [place] Urea nitrogen [Mass/Vol] 17 mg/dL 8 - 23 mg/dL [place] Hemoglobin A1Con 10-07-2019 HbA1c (Bld) [Mass fraction] 5.3 % Normal 4.8-5.9 [facility] Comment on above: Performed By: #### Jeramie PAUL FE #### [address] [address] [address] Mechanic: Otoniel Ash MD #### TSH, LIPR, CP, GLYHGB, CDP #### [facility] [address] [place] [address] [address] Mechanic: Elisabeth Worthy MD HbA1c (Bld) [Mass fraction] 105 mg/dL Normal [facility] Comment on above: Result Comment: The ADA and AACC recommend providing the estimated average glucose result to permit better patient understanding of their HBA1c result. Performed By: #### F TI, FE #### [place] [id number] [place], [place] [id number] Railroad Track Mechanic: Otoniel Ash MD #### TSH, LIPR, CP, GLYHGB, CDP #### [facility] [address] [place] [address] [address] Mechanic: Elisabeth Worthy MD Glucose [Mass/Vol] 105 mg/dL [place] Comment on above: The ADA and AACC rec ommend providing the estimated average glucose result to permit better patient understanding of their HBA1c result. HbA1c (Bld) [Mass fraction] 5.3 % 4.8 - 5.9 % [place] Ironon 10-07-2019 Iron [Mass/Vol] 73 ug/dL 37 - 145 ug/dL [place] Lipid Panelon 10-07-2019 Cholesterol [Mass/Vol] 229 mg/dL High <200 [place] Comment on above: Cholesterol Guidelines: <200 Desirable 200-240 Borderline >240 Undesirable Cholesterol in HDL [Mass/Vol] 67 mg/dL >40 [place] Comment on above: HDL Guidelines: <40 Undesirable 40-59 Borderline >59 Desirable Cholesterol in LDL [Mass/Vol] 127 mg/dL 0 - 130 mg/dL [place] Comment on above: LDL Guidelines: <100 Desirable 100-129 Near to/above Desirable 130-159 Borderline >159 Undesirable Direct (measured) LDL and calculated LDL are not interchangeable tests. Cholesterol in VLDL [Mass/Vol] NOT REPORTED High 1 - 30 mg/dL [place] Cholesterol.total/Cho lesterol in HDL [Mass ratio] 3.4 {ratio} <5 [place] Triglyceride [Mass/Vol] 175 mg/dL High <150 [place] Comment on above: Triglyceride Guidelines: <150 Desirable 150-199 Borderline 200-499 High >499 Very high Based on AHA Guidelines for fasting triglyceride, December 2011. Lipid Profileon 10-07-2019 Cholesterol [Mass/Vol] 229 mg/dL High <200 [facility] Comment on above: Result Comment: Cholesterol Guidelines: <200 Desirable 200-240 Borderline >240 Undesirable Performed By: #### F TI, FE #### [facility] [address] [place] [address] [address] [employer] Mechanic: Otoniel Ash MD #### TSH, LIPR, CP, GLYHGB, CDP #### [facility] [address] [place], [place] [phone] [employer] Track Mechanic: Elisabeth Worthy MD Cholesterol in HDL [Mass/Vol] 67 mg/dL Normal >40 [facility] Comment on above: Result Comment: HDL Guidelines: <40 Undesirable 40-59 Borderline >59 Desirable Performed By: #### F TI, FE #### [place] [id number] [place] [address] [address] Mechanic: Otoniel Ash MD #### TSH, LIPR, CP, GLYHGB, CDP #### [facility] [address] [place] [address] [address] Mechanic: Elisabeth Worthy MD Cholesterol in LDL [Mass/Vol] 127 mg/dL Normal 0-130 [facility] Comment on above: Result Comment: LDL Guidelines: <100 Desirable 100-129 Near to/above Desirable 130-159 Borderline >159 Undesirable Direct (measured) LDL and calculated LDL are not interchangeable tests. Performed By: #### F TI, FE #### [address] [address] [address] Mechanic: Otoniel Ash MD #### TSH, LIPR, CP, GLYHGB, CDP #### [address] [place] [phone] [employer] Mechanic: Elisabeth Worthy MD Cholesterol.total/Cho lesterol in HDL [Mass ratio] 3.4 {ratio} Normal <5 [facility] Comment on above: Performed By: #### F TI, FE #### [id number] [place] [address] [address] Mechanic: Otoniel Ash MD #### TSH, LIPR, CP, GLYHGB, CDP #### [facility] [address] [place], [place] [phone] [employer] Mechanic: Elisabeth Worthy MD Triglyceride [Mass/Vol] 175 mg/dL High <150 [facility] Comment on above: Result Comment: Triglyceride Guidelines: <150 Desirable 150-199 Borderline 200-499 High >499 Very high Based on AHA Guidelines for fasting triglyceride, December 2011. Performed By: #### F TI, FE #### [facility] [address], [place] [id number] Railroad Track Mechanic: Otoniel Ash MD #### TSH, LIPR, CP, GLYHGB, CDP #### [facility] [address] [place] [address] Railroad Track Mechanic: Elisabeth Worthy MD Cholesterol in VLDL [Mass/Vol] NOT REPORTED Normal 04-16 [facility] Comment on above: Performed By: #### F TI, FE #### [facility] [address], [place] [id number] Railroad Track Mechanic: Otoniel Ash MD #### TSH, LIPR, CP, GLYHGB, CDP #### [facility] [address] [place] [address] Railroad Track Mechanic: Elisabeth Worthy MD Metabolic Panelon 10-07-2019 GFR/1.73 sq M predicted among non-blacks MDRD (S/P/Bld) [Vol rate/Area] [place], [place] Comment on above: Stage 1: Some [...] body mass. Additional eGFR calculator available at: http://[email or web address].htm Otheron 10-07-2019 Interpretation and review of laboratory results Abnormal [place], [place] TSH without Reflexon 020 TSH Qn 1.12 m[IU]/L [place], [place] Thyroid Stim. Horm.on 2019 TSH Qn 1.12 m[IU]/L Normal 0.30-5.00 [facility] Comment on above: Performed By: #### F TI, FE #### [facility] [address] [place] [address] Railroad Track Mechanic: Otoniel Ash MD #### TSH, LIPR, CP, GLYHGB, CDP #### [facility] [address] [place] [address] Railroad Track Mechanic: Elisabeth Worthy MD Operative Reporton 8 Operative Report MR#: [id number] [facility] Pt. Name: Xena Ewing Room #: 0C Discharge Date: Birthdate: 1955 OPERATIVE REPORTDATE OF SURGERY: 03/17/2018SURGEON: Bart Holcomb M.D.TEST LEAD APPLICATION TESTING: Carlton Galicia M.D.PREOPERATIVE DIAGNOSIS: Right recurrent de [...] Dict: 03/17/2018/10:00 Finn/Chad Andino Trans: 03/17/2018 11:55 A/[id number]: Anamika Valle M.D. [address], [facility] [address] [facility] POC GLUCOSE LABon 03-17-2018 Glucose mass conc 89 mg/dL Normal 70-[address] [facility] Comment on above: Performed By: #### [id number] ####[facility] [place] [address], [facility] Vital Signs Date Time Vital Sign Value Performing Clinician Facility 10-23-2024 09:44-0400 Diastolic blood pressure 78 mm[Hg] Victoria Martin MD Work Phone: [facility] 10-23-2024 09:44-0400 Systolic blood pressure 138 mm[Hg] Victoria Martin MD Work Phone: [facility] 10-01-2024 09:29-0400 Body height 165.1 cm Semaj Brown DPM Work Phone: [facility] 10-01-2024 09:29-0400 Body mass index (BMI) [Ratio] 21.47 kg/m2 Semaj Brown DPM Work Phone: [facility] 10-01-2024 09:29-0400 Body weight 58.51 kg Semaj Brown DPM Work Phone: [facility] 10-01-2024 09:29-0400 Respiratory rate 18 /min Semaj Brown DPM Work Phone: [facility] 09-10-2024 09:18-0400 Body height 165.1 cm Semaj Brown DPM Work Phone: [facility] 09-10-2024 09:18-0400 Body mass index (BMI) [Ratio] 21.47 kg/m2 Semaj Brown DPM Work Phone: [facility] 09-10-2024 09:18-0400 Body weight 58.51 kg Semaj Brown DPM Work Phone: [facility] 09-10-2024 09:18-0400 Respiratory rate 18 /min Semaj Brown DPM Work Phone: [facility] 08-27-2024 08:42-0400 Body height 165.1 cm Semaj Brown DPM Work Phone: [facility] 08-27-2024 08:42-0400 Body mass index (BMI) [Ratio] 21.47 kg/m2 Semaj Brown DPM Work Phone: [facility] 08-27-2024 08:42-0400 Body weight 58.51 kg Semaj Brown DPM Work Phone: [facility] 08-27-2024 08:42-0400 Respiratory rate 18 /min Semaj Brown DPM Work Phone: [facility] 08-13-2024 08:41-0400 Body height 165.1 cm Semaj Brown DPM Work Phone: [facility] 08-13-2024 08:41-0400 Body mass index (BMI) [Ratio] 21.47 kg/m2 Semaj Brown DPM Work Phone: [facility] 08-13-2024 08:41-0400 Body weight 58.51 kg Semaj Brown DPM Work Phone: [facility] 08-13-2024 08:41-0400 Respiratory rate 18 /min Semaj Brown DPM Work Phone: [facility] 07-30-2024 09:19-0400 Body height 165.1 cm Semaj Brown DPM Work Phone: [facility] 07-30-2024 09:19-0400 Body mass index (BMI) [Ratio] 21.47 kg/m2 Semaj Brown DPM Work Phone: [facility] 07-30-2024 09:19-0400 Body weight 58.51 kg Semaj Brown DPM Work Phone: [facility] 07-30-2024 09:19-0400 Respiratory rate 16 /min Semaj Brown DPM Work Phone: [facility] 07-09-2024 08:48-0400 Body height 165.1 cm Semaj Brown DPM Work Phone: [facility] 07-09-2024 08:48-0400 Body mass index (BMI) [Ratio] 21.47 kg/m2 Semaj Brown DPM Work Phone: [facility] 07-09-2024 08:48-0400 Body weight 58.51 kg Semaj Brown DPM Work Phone: [facility] 07-09-2024 08:48-0400 Respiratory rate 18 /min Semaj Brown DPM Work Phone: [facility] 06-01-2024 11:12-0400 Body mass index (BMI) [Ratio] 21.6 kg/m2 Severo Patricio DO Work Phone: [facility] 06-01-2024 11:12-0400 Body weight 58.88 kg Severo Patricio DO Work Phone: [facility] 06-01-2024 11:12-0400 Diastolic blood pressure 74 mm[Hg] Severo Patricio DO Work Phone: [facility] 06-01-2024 11:12-0400 Systolic blood pressure 124 mm[Hg] Severo Patricio DO Work Phone: [facility] 05-28-2024 11:26-0400 Body height 165.1 cm Semaj Brown DPM Work Phone: [facility] 05-28-2024 11:26-0400 Body mass index (BMI) [Ratio] 21.47 kg/m2 Semaj Brown DPM Work Phone: [facility] 05-28-2024 11:26-0400 Body weight 58.51 kg Semaj Brown DPM Work Phone: [facility] 05-28-2024 11:26-0400 Respiratory rate 18 /min Semaj Brown DPM Work Phone: [facility] 04-09-2024 10:48-0500 Body height 165.1 cm Semaj Brown DPM Work Phone: [facility] 04-09-2024 10:48-0500 Body mass index (BMI) [Ratio] 21.47 kg/m2 Semaj Brown DPM Work Phone: [facility] 04-09-2024 10:48-0500 Body weight 58.51 kg Semaj Brown DPM Work Phone: [facility] 04-09-2024 10:48-0500 Respiratory rate 18 /min Semaj Sanchez DPM Work Phone: [facility] 03-19-2024 15:44-0500 Body height 165.1 cm Semaj Sanchez DPM Work Phone: [facility] 03-19-2024 15:44-0500 Body mass index (BMI) [Ratio] 21.47 kg/m2 Semaj Sanchez DPM Work Phone: [facility] 03-19-2024 15:44-0500 Body weight 58.51 kg Semaj Sanchez DPM Work Phone: [facility] 03-19-2024 15:44-0500 Respiratory rate 18 /min Semaj Sanchez DPM Work Phone: [facility] 02-05-2024 14:03-0500 Blood Pressure Location Rubén NILL [facility] 02-05-2024 14:03-0500 Diastolic blood pressure 84 mm[Hg] Rubén NILL [facility] 02-05-2024 14:03-0500 Heart rate 72 /min Rubén NILL [facility] 02-05-2024 14:03-0500 Respiratory rate 16 /min Rubén NILL [facility] 02-05-2024 14:03-0500 Systolic blood pressure 132 mm[Hg] Rubén NILL [facility] 10-23-2022 11:13-0400 Body height 165.1 cm Claire West MD Work Phone: [facility] 10-23-2022 11:13-0400 Body weight 73.07 kg Claire West MD Work Phone: [facility] 10-23-2022 11:13-0400 Diastolic blood pressure 71 mm[Hg] Claire West MD Work Phone: [facility] 10-23-2022 11:130400 Heart rate 77 /min Claire West MD Work Phone: [facility] 10-23-2022 11:130400 Systolic blood pressure 125 mm[Hg] Claire West MD Work Phone: [facility] Encounters Encounter Date Encounter Type Care Provider Facility Start: 10-23-2024 End: 10-23-2024 Bamboo flowsvandana Martin MD [facility] Start: 10-23-2024 End: 10-23-2024 Bamboo daniel Martin MD [facility] Start: 10-23-2024 End: 10-23-2024 Patient encounter procedure Victoria Martin MD Work Phone: [facility] Comment on above: 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 Start: 10-23-2024 End: 10-23-2024 ambulatory VICTORIA MARTIN Not Available Start: 10-19-2024 End: 10-19-2024 ambulatory EVERETT SILVA Not Available Start: 10-19-2024 End: 10-19-2024 Patient encounter procedure Everett Silva TIRE MAN Work Phone: [facility] Comment on above: Osteopenia of hip, u nspecified laterality (Primary Dx) Start: 10-01-2024 End: 10-01-2024 Bamboo flowsheet Semaj Sanchez DPM Work Phone: [facility] Start: 10-01-2024 End: 10-01-2024 Bamboo flowsheet Semaj Sanchez DPM Work Phone: [facility] Start: 10-01-2024 End: 10-01-2024 ambulatory SEMAJ SANCHEZ Not Available Start: 10-01-2024 End: 10-01-2024 Office outpatient visit 15 minutes Semaj Sanchez DPM Work Phone: [facility] Comment on above: Neoplasm of uncertai n behavior of skin (Primary Dx) Start: 09-16-2024 End: 09-16-2024 Office outpatient visit 25 minutes Marianna Amaya MD Work Phone: [facility] Comment on above: Other atopic dermati tis (Primary Dx); Neoplasm of unspecified behavior of bone, soft tissue, and skin Start: 09-16-2024 End: 09-16-2024 ambulatory MARIANNA AMAYA Not Available Start: 09-16-2024 End: 09-16-2024 Bamboo flowsvandana Amaya MD [facility] Phone[facility] Start: 09-16-2024 End: 09-16-2024 Bamedmund Amaya MD Work Phone: [facility] Start: 09-10-2024 End: 09-10-2024 Bamboo flowsheet Semaj Sanchez DPM Work Phone: [facility] Start: 09-10-2024 End: 09-10-2024 Bamboo flowsheet Semaj Sanchez DPM Work Phone: [facility] Start: 09-10-2024 End: 09-10-2024 ambulatory SEMAJ SANCHEZ Not Available Start: 09-10-2024 End: 09-10-2024 Office outpatient visit 15 minutes Semaj Sanchez DPM Work Phone: [facility] Comment on above: Verruca plantaris [...] Start: 09-09-2024 End: 09-09-2024 ambulatory ANAMIKA VALLE Facility:[facility] Start: 08-27-2024 End: 08-27-2024 Bamboo flowsheet Semaj [...] Phone: [facility] Comment on above: Verruca plantaris (P rimary Dx); Foot pain, right; Foot pain, left Start: 07-30-2024 End: 07-30-2024 ambulatory SEMAJ SANCHEZ Not Available Start: 07-09-2024 End: 07-09-2024 Bamboo flowsheet Semaj Sanchez DPM Work Phone: [facility] Start: 07-09-2024 End: 07-09-2024 Bamboo flowsheet Semaj Sanchez DPM Work Phone: [facility] Start: 07-09-2024 End: 07-09-2024 Patient encounter procedure Semaj Sanchez DPM Work Phone: [facility] Comment on above: Verruca [...] Bamboo flowsheet Semaj Sanchez DPM Work Phone: [facility] Start: 05-28-2024 End: 05-28-2024 Bamboo flowsheet Semaj Sanchez DPM Work Phone: [facility] Start: 05-28-2024 End: 05-28-2024 ambulatory SEMAJ SANCHEZ Not Available Start: 05-28-2024 End: 05-28-2024 Patient encounter procedure Semaj Sanchez DPM Work Phone: [facility] Comment on above: 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 (Primary Dx); Verruca plantaris; Foot pain, right; Foot pain, left Start: 04-15-2024 End: 04-15-2024 ambulatory Rubén MANUEL Facility:[id number] Start: 04-09-2024 End: 04-09-2024 Bamboo flowsheet Semaj Sanchez DPM Work Phone: [facility] Start: 04-09-2024 End: 04-09-2024 Bamboo flowsheet Semaj Sanchez DPM Work Phone: [facility] Start: 04-09-2024 End: 04-09-2024 Patient encounter procedure Semaj Sanchez DPM Work Phone: [facility] Comment on above: Verruca plantaris (P rimary Dx); Foot pain, right; Foot pain, left Start: 04-09-2024 End: 04-09-2024 ambulatory SEMAJ SANCHEZ Not Available Start: 03-19-2024 End: 03-19-2024 Office outpatient visit 15 minutes Semaj Sanchez DPM Work Phone: [facility] Comment on above: Neoplasm [...] Start: 02-06-2024 End: 02-06-2024 ambulatory GEORGES BURNS Facility:[facility] Start: 02-06-2024 End: 02-06-[address] GEORGES BURNS [facility] Start: 02-05-2024 End: 02-05-2024 ambulatory Rubén MANUEL Facility:[facility] Start: 02-05-2024 End: 02-05-2024 Patient encounter procedure Rubén MANUEL [facility] Start: 12-27-2023 End: 12-27-2023 Patient encounter procedure MD Anamika Valle Work Phone: [facility] Work Phone: Start: 12-27-2023 End: 12-27-2023 ambulatory MD Anamika Valle Work Phone: [facility] Work Phone: Start: 12-17-2023 End: 12-17-2023 Bamboo flowsheet Shirin Escobar DISTRIBUTOR SALES MANAGER-REGISTERED NURSE SUPERVISOR Work Phone: [facility] Start: 12-17-2023 End: 12-17-2023 Bamboo flowsheet Shirin Escobar DISTRIBUTOR SALES MANAGER-REGISTERED NURSE SUPERVISOR Work Phone: [facility] Start: 12-17-2023 End: 12-17-2023 Office outpatient new 20 minutes Shirin A Felter DISTRIBUTOR SALES MANAGER-REGISTERED NURSE SUPERVISOR Work Phone: [facility] Comment on above: Other nonthrombocyto penic purpura (CMS/HCC) (Primary Dx); Actinic keratosis Start: 12-17-2023 End: 12-17-2023 ambulatory SHIRIN A FELTER Not Available Start: 12-24-2022 End: 12-24-2022 ambulatory MD Anamika Valle Work Phone: [facility] Work Phone: Start: 12-24-2022 End: 12-24-2022 Patient encounter procedure MD Anamika Valle [facility] Phone[facility] Work Phone: Start: 10-23-2022 End: 10-23-2022 Patient encounter procedure Claire West MD Work Phone: General Surgery Comment on above: Ventral hernia witho ut obstruction or gangrene (Primary Dx) Start: 04-19-2022 End: 04-19-2022 ambulatory DESTINI DOOLEY Facility:[facility] Start: 01-05-2022 End: 01-06-[address] ANAMIKA VALLE Facility:[facility] Start: 12-21-2021 End: 12-21-2021 ambulatory MD Anamika Valle Work Phone: [facility] Work Phone: Start: 12-21-2021 End: 12-21-2021 Patient encounter procedure MD Anamika Valle Work Phone[facility] Start: 11-09-2021 End: 11-10-[address] ANAMIKA VALLE Facility:[facility] Start: 08-31-2021 End: 08-31-[address] ANAMIKA VALLE Facility:[facility] Start: 06-29-2021 End: 06-29-[address] ANAMIKA VALLE Facility:[facility] Start: 06-21-2021 End: 06-22-[address] ANAMIKA VALLE Facility:[facility] Start: 06-08-2021 End: 06-09-[address] ANAMIKA VALLE Facility: Start: 10-13-2019 End: 10-14-2019 Patient encounter procedure [facility] Start: 10-13-2019 End: 10-13-2019 Subsequent hospital visit by physician Anamika Valle [facility] Start: 10-07-2019 End: 10-08-2019 Patient encounter procedure [facility] Start: 10-07-2019 End: 10-07-2019 Subsequent hospital visit by physician [facility] Drawing Room [facility] Comment on above: Arrived Start: 03-17-2018 End: 03-18-2018 Patient encounter procedure GIOVANI HOLCOMB Facility:[facility] Start: 02-14-2018 End: 02-15-2018 Patient encounter procedure DEFAULT PHYSICIAN Facility:[facility] Procedures Date Procedure Procedure Detail Performing Clinician Start: 10-23-2024 SKIN REPAIR Victoria manuel MD Work Phone: Start: 10-23-2024 MOHS SURGERY Victoria manuel MD Work Phone: Start: 09-16-2024 SKIN / NAIL BIOPSY Varinder Amaya MD Work Phone: Start: 12-27-2023 Screening mammograph y of bilateral breasts MD Anamika Valle Work Phone: Start: 12-17-2023 CRYOTHERAPY SKIN LESION Shirin A Felter DISTRIBUTOR SALES MANAGER-REGISTERED NURSE SUPERVISOR Work Phone: Start: 12-24-2022 Screening mammograph y of bilateral breasts MD Anamika Valle Work Phone: Start: 04-19-2022 Mammography Shirin Fe lter DISTRIBUTOR SALES MANAGER-REGISTERED NURSE SUPERVISOR Work Phone: Start: 12-21-2021 Screening mammograph y of bilateral breasts MD Anamika Valle Work Phone: Start: 10-13-2019 Virus centrifuge enh ncd id imfluor stain juan diego VALLE Start: 10-13-2019 BLOOD OCCULT STOOL S CREEN #1 Anamika Valle Work Phone: Start: 10-07-2019 Assay of iron ANAMIKA H OY Start: 10-07-2019 Assay of thyroid stimulating hormone tsh ANAMIKA PEARLY Start: 10-07-2019 Blood count complete auto&auto difrntl wbc ANAMIKA VALLE Start: 10-07-2019 Comprehensive metabo lic panel ANAMIKA HOY Start: 10-07-2019 Hemoglobin glycosylated a1c ANAMIKA HOY Start: 10-07-2019 Lipid panel ANAMIKA HO Y Start: 10-07-2019 Thyroid horm uptk/th yroid hormone binding ratio ANAMIKA VALLE Start: 10-07-2019 Assay of iron Anamika M Makayla Work Phone: Start: 10-07-2019 Assay of thyroid stimulating hormone tsh Anamika M Makayla Work Phone: Start: 10-07-2019 Blood count complete auto&auto difrntl wbc Anamika Valle Work Phone: Start: 10-07-2019 Comprehensive metabo lic panel Anamika M Makayla Work Phone: Start: 10-07-2019 Hemoglobin glycosylated a1c Anamika Valle Work Phone: Start: 10-07-2019 Lipid panel Anamika M Makayla Work Phone: Start: 10-07-2019 Thyroid horm uptk/th [...] RSV Vaccine (1 - 1-dose 75+ series) [facility] Start: 06-01-2028 DTaP/Tdap/Td vaccine (2 - Td) DTaP/Tdap/Td vaccine (2 - Td) [facility] [place] Start: 06-01-2028 Urine microalbumin profile DTaP,Tdap,Td Vaccine (2 - Td or Tdap) [facility] Start: 06-03-2025 End: 06-03-2025 Patient encounter procedure [facility] Start: 11-16-2024 Influenza vaccination [facility] Start: 11-06-2024 End: 11-06-2024 Patient encounter procedure 11/06/2024 10:30 AM EDT Office Visit [facility] [address] [place] [address] Victoria Martin MD [address] [place] [address] [facility] Start: 10-23-2024 End: 10-23-2024 Patient encounter procedure [facility] Comment on above: Arrived Start: 10-06-2024 Lipid panel [facility] Start: 10-01-2024 End: 10-01-2024 Patient encounter procedure 10/01/2024 9:10 AM EDT Office Visit [facility] [address] [place] [address] Semaj Sanchez DPM [address] [facility] [address] [place] [address] [facility] Start: 09-16-2024 End: 09-16-2024 Patient encounter procedure 09/16/2024 2:35 PM EDT Office Visit [facility] [address] [place] [address] Marianna Amaya MD [address] [place] [address] Arrived [facility] Comment on above: Arrived Start: 08-27-2024 End: 08-27-2024 Patient encounter procedure 08/27/2024 8:50 AM EDT Office Visit [facility] [address] [facility] [address] [place] [address] Semaj Sanchez, DPM [address] [address] Neoplasm of uncertain behavior of skin (Primary Dx) [facility] Comment on above: Neoplasm of uncertain behavior of skin ( Primary Dx) Start: 08-13-2024 End: 08-13-2024 Patient encounter procedure 08/13/2024 8:40 AM EDT Office Visit [facility] [address] [facility] [address] [place] [address] Semaj Sanchez, DPM [address] [address] Neoplasm of uncertain behavior of skin (Primary Dx) [facility] Comment on above: Neoplasm of uncertain behavior of skin ( Primary Dx) Start: 08-06-2024 End: 08-06-2024 Patient encounter procedure 08/06/2024 11:20 AM EDT Procedure Visit [facility] [address] [facility] [address] [place] [address] Semaj Sanchez, DPM [address] [address] [facility] Start: 07-30-2024 End: 07-30-2024 Patient encounter procedure 07/30/2024 9:30 AM EDT Office Visit [facility] [address] [facility] [address] [place] [address] Semaj Sanchez, DPM [address] [address] Verruca plantaris (Primary Dx); Foot pain, right; Foot pain, left [facility] Comment on above: Verruca plantaris (Primary Dx); Foot pain, right; Foot pain, left Start: 07-09-2024 End: 07-09-2024 Patient encounter procedure 07/09/2024 8:50 AM EDT Office Visit [facility] [address] [facility] [address] [place] [phone] eSmaj Sanchez DPM [address] [address] Arrived [facility] Comment on above: Arrived Start: 06-11-2024 End: 06-11-2024 Patient encounter procedure 06/11/2024 11:30 AM EDT Office Visit [facility] [address] [facility] [address] [place] [phone] Semaj Sanchez DPM [address] [address] [facility] Start: 06-01-2024 End: 06-01-2025 DXA Skeletal system Views for bone density DEXA bone density Imaging Routine Postmenopausal state Expected: 06/01/2024 (Approximate), Expires: 06/01/2025 [facility] Comment on above: Expected: 06/01/2024 (Approximate), Expi res: 06/01/2025 Start: 06-01-2024 End: 08-01-2025 MG Breast - bilateral Screening Bilateral screening mammogram Imaging Routine Breast cancer screening by mammogram Expected: 06/01/2024, Expires: 08/01/2025 [facility] Work Phone: Comment on above: Expected: 06/01/2024, Expires: Start: 06-01-2024 End: 06-01-2024 Patient encounter procedure [facility] Comment on above: Arrived Start: 05-28-2024 End: 05-28-2024 Patient encounter procedure 05/28/2024 11:00 AM EDT Procedure Visit [facility] [address] [facility] [address] [place] [id number] Semaj Sanchez DPM [address] [address] [facility] Start: 04-09-2024 End: 04-09-2024 Patient encounter procedure 04/09/2024 11:00 AM EST Office Visit [facility] [address] [facility] [address] [place] [address] Semaj Sanchez DPM [address] [address] Verruca plantaris (Primary Dx); Foot pain, right; Foot pain, left [facility] Comment on above: Verruca plantaris (Primary Dx); Foot pain, right; Foot pain, left Start: 03-19-2024 End: 03-19-2024 Patient encounter procedure 03/19/2024 3:50 PM EST Office Visit [facility] [address] [facility] [address] [place] [address] Semaj Sanchez DPM [address] [address] [facility] Start: 03-18-2024 Advance Directive Discussion Advance Directive Discussion [facility] Start: 03-18-2024 Medicare Advantage Annual Wellness Visit Medicare Advantage Annual Wellness Visit [facility] Start: 12-17-2023 End: 12-17-2023 Patient encounter procedure 12/17/2023 11:05 AM EDT Office Visit [facility] [address] [place] [address] Shirin Escobar, DISTRIBUTOR SALES MANAGER-REGISTERED NURSE SUPERVISOR [address] [place] [address] Arrived [facility] Comment on above: Arrived Start: 11-17-2023 Covid-19 Vaccine () Covid-19 Vaccine () [facility] Start: 11-17-2023 Influenza vaccination Influenza Vaccine (#1) [facility] Start: 04-19-2023 Screening for malignant neoplasm of breast [facility] Start: 11-16-2022 Influenza vaccination INFLUENZA (#1) [facility] Start: 10-06-2022 Diabetes Screening Diabetes Screening [facility] Start: 04-21-2022 COVID-19 VACCINE (5 - Pfizer series) COVID-19 VACCINE (5 - Pfizer series) [facility] Start: 03-18-2022 ADVANCE DIRECTIVE DISCUSSION ADVANCE DIRECTIVE DISCUSSION [facility] Start: 03-18-2022 DEPRESSION ASSESSMENT DEPRESSION ASSESSMENT [facility] Start: 2021 BONE DENSITY BONE DENSITY [facility] Start: 2021 Pneumococcal Vaccine: 65+ Years (2 of 2 - PCV) Pneumococcal Vaccine: 65+ Years (2 of 2 - PCV) [facility] Start: 2021 Screening for osteoporosis Bone Density Screening [facility] Start: 11-17-2019 Influenza vaccination Flu vaccine (#1) [place] Start: 06-27-2016 Pneumococcal Vaccine: 50+ (2 of 2 - PCV) Pneumococcal Vaccine: 50+ (2 of 2 - PCV) [facility] Start: 06-27-2016 Pneumococcal Vaccine: 65+ Years (2 of 2 - PCV) Pneumococcal Vaccine: 65+ Years (2 of 2 - PCV) [facility] Start: 2006 Influenza vaccination LUNG CANCER SCREENING [facility] Start: 2006 Screening for malignant neoplasm of breast Breast cancer screen [place], [place] Start: 2006 Screening for malignant neoplasm of colon Colon cancer screen colonoscopy [place] Start: 2006 Screening for malignant neoplasm of lung Lung Cancer Screening [facility] Start: 2006 Shingles Vaccine (1 of 2) Shingles Vaccine (1 of 2) [place] Start: 2006 SHINGRIX VACCINE (1 of 2) SHINGRIX VACCINE (1 of 2) [facility] Start: 2001 COLOGUARD (FIT-DNA) COLOGUARD (FIT-DNA) [facility] Start: 2001 Colonoscopy COLONOSCOPY [facility] Start: 2001 COLORECTAL CANCER SCREENING COLORECTAL CANCER SCREENING [facility] Start: [address] COLONOGRAPHY [facility] Start: 2001 DIABETES SCREEN DIABETES SCREEN [facility] Start: 2001 FECAL OCCULT BLOOD FECAL OCCULT BLOOD [facility] Start: 2001 LIPID SCREEN LIPID SCREEN [facility] Start: 2001 Screening for malignant neoplasm of colon [facility] Start: 2001 SIGMOIDOSCOPY SIGMOIDOSCOPY [facility] Start: 1996 Lipid panel Lipid screen [place] Start: 1996 Mammography MAMMOGRAM [facility] Start: 1996 Screening for malignant neoplasm of breast Mammogram Screening [facility] Start: 1977 Screening for malignant neoplasm of cervix Cervical cancer screen [place] Start: 12-12-1975 Urine microalbumin profile DTAP,TDAP,TD (1 - Tdap) [facility] Start: 1974 Anxiety Screening Anxiety Screening [facility] Start: 1974 Depression Screening Depression Screening [facility] Start: 1974 HEPATITIS C SCREENING HEPATITIS C SCREENING [facility] Start: 1974 Hepatitis C screening Hepatitis C Screening [facility] Start: 1974 HIV SCREENING HIV SCREENING [facility] Start: 12-12-1971 HIV screening HIV screen [place] Start: 1962 PNEUMOCOCCAL: 65+ (1 - PCV) PNEUMOCOCCAL: 65+ (1 - PCV) [facility] Start: 1956 Hepatitis C screening Hepatitis C screen [place], [place] Start: 1956 Screening for malignant neoplasm of colon [facility] Dermatopathology exam Dermatopat hology exam Pathology and Cytology Timed Neoplasm of unspecified behavior of bone, soft tissue, and skin Release Upon Ordering for 1 Occurrences starting 09/16/2024 [facility] Work Phone: Comment on above: Release Upon Ordering for 1 Occurrences starting 09/16/2024 THIN PREP TIS PAP AN D HR HPV DNA THIN PREP TIS PAP AND HR HPV DNA Pathology and Cytology Routine Well woman exam with routine gynecological exam Ordered: 06/01/2024 [facility] Comment on above: Ordered: 06/01/2024 End: 09-10-2025 [facility] Audiology Routine Tinnitus, unspecified laterality Mixed conductive and sensorineural hearing loss of left ear with restricted hearing of right ear 1 Occurrences starting 09/09/2024 until 09/10/2025 [facility] Work Phone: Comment on above: 1 Occurrences starting 09/09/2024 until 09/10/2025 Immunizations Immunization Date Immunization Notes Care Provider Angie stacy 12-19-2021 SARS-CoV-2 (COVID-19 ) [id number] Rubén NILL [facility] 04-04-2021 SARS-CoV-2 (COVID-19 ) mRNA BNT-162b2 vax Rubén NILL [facility] 12-16-2020 SARS-CoV-2 (COVID-19 ) mRNA BNT-162b2 vax Rubén NILL [facility] 11-28-2020 SARS-CoV-2 (COVID-19 ) mRNA BNT-162b2 vax Rubén NILL [facility] 06-05-2018 influenza virus vaccine, unspecified formulation Shirin Durbinreese DISTRIBUTOR SALES MANAGERED[facility] Work Phone: [facility] 06-01-2018 tetanus toxoid, redu tu diphtheria toxoid, and acellular pertussis vaccine, adsorbed [facility] Room [place] Payers Date Payer Category Payer Self-pay [id number] 2023 Medicare (Managed Care) [id number]. [id number] 2023 Medicare [id number] 2022 Medicare [id number] 2019 Unknown [id number] 2019 Unknown [employer] - EXCHANGE [id number] 2019-Present [phone] [address] [place] [address] [id number] 1959 Medicare [id number] 1959 Medicare [id number] 1959 Private Health Insurance [facility] [id number] 1956 Unknown [id number] 2.16.840.1.874430.3.579.2.6 47 1956 Unknown [id number] 2.16.840.1.251070.3.579.2.6 47 1956 Unknown [id number] 2.16.840.1.024871.3.579.2.1 73 1956 Unknown [id number] 2.16.840.1.407890.3.579.2.1 73 1956 Unknown [id number] 2.16.840.1.211011.3.579.2.5 93 1956 Unknown [id number] 2.16.840.1.749892.3.579.2.5 93 1956 Unknown [id number] 2.16.840.1.640619.3.579.2.5 93 1956 Unknown [id number] 2.16.840.1.155344.3.579.2.5 93 1956 Unknown [id number] 2.16.840.1.506709.3.579.2.5 93 1956 Unknown [id number] 2.16.840.1.564787.3.579.2.5 93 1956 Unknown [id number] 2.16.840.1.066222.3.579.2.5 93 1956 Unknown [id number] 2.16.840.1.330536.3.579.2.7 27 1956 Unknown [id number] 2.16.840.1.130603.3.579.2.7 1956 Unknown [id number] 2.16.840.1.410524.3.579.2.7 27 1956 Unknown [id number] 2.16.840.1.806697.3.579.2.1 259 1956 Unknown [id number] 2.16.840.1.023391.3.579.2.1 259 1956 Unknown [id number] 2.16.840.1.104646.3.579.2.1 259 1956 Unknown [id number] 2.16.840.1.698014.3.579.2.1 259 1956 Unknown [id number] 2.16.840.1.637835.3.579.2.1 259 1956 Unknown [id number] 2.16.840.1.013998.3.579.2.1 1956 Unknown [id number] 2.16.840.1.689704.3.579.2.1 259 1956 Unknown [id number] 2.16.840.1.187225.3.579.2.1 259 1956 Unknown [id number] 2.16.840.1.581002.3.579.2.1 259 1956 Unknown [id number] 2.16.840.1.219209.3.579.2.1 259 1956 Unknown [id number] 2.16.840.1.895097.3.579.2.1 259 1956 Unknown [id number] 2.16.840.1.899053.3.579.2.1 259 1956 Unknown [id number] 2.16.840.1.453893.3.579.2.1 259 1956 Unknown [id number] 2.16.840.1.248177.3.579.2.1 259 Medicare Medicare [id number] Unknown [id number] Unknown Unknown HCAP/HFA/FAP Active [id number] Unknown [id number] 2.16.840.1.621271.3.579.2.5 31 Social History Date Type Detail Facility Start: 05-31-2018 End: 02-05-2024 Tobacco smoking status NHIS Former smoker [facility] Start: 05-31-2018 Alcohol intake Ex-drinker (finding) [place], [place] Start: 1955 Sex Assigned At Not on file [place] Exposure to SARS-CoV -2 (event) Not sure [place] Start: 1955 Sex Assigned At Female F [facility] Start: 10-23-2022 Tobacco smoking stat us NHIS Smokes tobacco daily [facility] History of tobacco use Cigarette Smoker C [facility] Start: 10-23-2022 End: 10-23-2024 Cigarettes smoked current (pack per day) - Reported 1 [facility] Start: 10-23-2022 End: 03-19-2024 Tobacco use and exposure User of smokeless tobacco [facility] Start: 10-23-2022 End: 10-23-2024 Alcohol intake Lifetime non-drinker (finding) [facility] Start: 10-23-2022 End: 10-23-2024 [facility] Start: 10-23-2022 Tobacco Comment Vape Jose Armandoa [facility] Start: 09-21-2022 End: 03-19-2024 Tobacco smoking status NHIS Never smoked tobacco [facility] Start: 04-27-2023 Alcohol Comment Caffine intake : 2-3 cups per day, coffee; tea [facility] Healthcare National Score (1-10 0), lower number is lower risk 94 [facility] Functional Status Date Assessment Result Facility 02-05-2024 Functional Status N/A [facility] General Surgery [place] Clinical Notes 08-31-2021 to 10-23-2024 Victoria Martin MD - 10/23/2024 9:00 AM EDTEverett Silva NP - 10/19/2024 9:30 AM LEAHTSemaj Sanchez DPM - 10/01/2024 9:10 AM Lilli Amaya MD - 09/16/2024 2:35 PM EDT Note Date & Type Note Facility 10-23-2024 History of Present illness Narrative Images from the original note were not included. Mohs Surgery Location: mid back Date of biopsy: 09/16/2024 Diagnosis: Basal Cell Carcinoma Established patient All pertinent medical history, medications, and allergies were reviewed. General Exam: alert, oriented to person, place, and time, normal affect, well appearing Unaccompanied A focused exam completed based on patient reported problems, see below: Skin Exam 1. BASAL CELL CARCINOMA (BCC) OF UPPER BACK Mid Back [place] macule at biopsy site Re-measured today at 1.3 x 1.0 cm Mohs surgery Consent obtained: written (The rationale for Mohs as well as the risks, benefits, and alternatives. The risks of infection, scarring, bleeding, prolonged wound healing, incomplete removal, allergy to anesthesia or meds, nerve injury, and recurrence were addressed.) [place] Protocol: Procedure explained and questions answered to patient or proxy's satisfaction: Yes Test results available and properly labeled: Yes Pathology report reviewed: Yes Photo or diagram used for site identification: Yes Site/side marked: Yes Anesthesia: Anesthesia method: local infiltration Local anesthetic: lidocaine 1% WITH epi and sodium bicarbonate Procedure Details: Biopsy accession number: [id number] Biopsy lab: [email or web address] Date of biopsy: 09/16/2024 Frozen section biopsy performed: Yes Pre-Op diagnosis: basal cell carcinoma BCC subtype: infiltrative and nodular MohsAIQ Surgical site (if tumor spans multiple areas, please select predominant area): trunk (excluding nipple/areola) Surgical site (from skin exam): Mid Back Pre-operative length (cm): 1.2 Pre-operative width (cm): 1 Indications for Mohs surgery: anatomic location where tissue conservation is critical, ill-defined borders and aggressive histology Previously treated? No Mohs Appropriate Use Criteria Score: 8 Details of micrographic surgery: Mohs accession number: [id number] Micrographic Surgery Details: Number of Mohs stages: 2 Post surgery depth of defect: subcutaneous fat Stage 1 Comments: The area was prepped with Betadine, draped in a sterile fashion, and infiltrated with local anesthetic. Sterile technique was used throughout the procedure. The marked area of clinical tumor with a small rim of clinically normal surrounding skin was removed using Mohs technique with beveled edges. Hash clark were placed for orientation of the specimen. Hemostasis was achieved with electrodessication. After hemostasis, the defect was measured and recorded, a temporary sterile dressing was placed over the wound, and the patient was escorted to the waiting area. The specimen was oriented, mapped, and if necessary, divided into sections. A Mohs map was prepared. The specimen was placed in a labeled yoan dish and was taken to the Mohs lab where it was chromacoded and processed. Mohs sections were prepared with serial tissue sections, stained, and evaluated by Dr. Martin for interpretation of deep and peripheral margins. The Mohs map was marked accordingly. Amount of lidocaine used: 3.0 cc Estimated blood loss: 1.0 cc Defect size: 2.3 x 1.5 cm Number of blocks per stage: 1 Number of positive blocks: 1 Tumor features identified on Mohs section: basal carcinoma Depth of tumor invasion after stage: subcutaneous fat Stage 2 Comments: The patient returned to the procedure room, the dressing was remove, the tumor area was re-prepped and draped, and anesthesia was assessed and augmented as necessary. A layer of tissue around the positive margin(s) was removed, and the tissue was oriented, mapped, and processed in an identical fashion as for Stage 1. Hemostasis was achieved and dressing placed as in Stage 1. The patient was escorted to the waiting area. As with Stage 1, Mohs sections were prepared with serial tissue sections, stained, and evaluated by Dr. Martin for interpretation of deep and peripheral margins. The Mohs map was updated. Assistants: Monique Hatfield MA Amount of lidocaine used: 3.0 cc Estimated blood loss: < 1.0 cc Defect size: 2.5 x 1.5 cm Number of blocks: 1 Number of positive blocks: Tumor free margins were obtained and the Mohs procedure was considered complete. Tumor features identified on Mohs section: no tumor identified Depth of tumor invasion after stage: subcutaneous fat Patient tolerance of procedure: tolerated well, no immediate complications Antibiotics: Were antibiotics given on the day of surgery?: No mupirocin (Bactroban) 2 % ointment Apply to affected area daily for 7 days, 30 day supply Skin repair Complexity: Intermediate Final length (cm): 3.5 Informed consent: discussed and consent obtained Reason for type of repair: allow closure of the large defect Undermining: edges undermined Undermining comment: The surrounding tissue was undermined until the skin edges could be approximated without undue tension. Any tissue redundancies were removed. Subcutaneous layers (deep stitches): Suture size: 3-0 Suture type comment: Biosyn Stitches: Buried horizontal mattress (Closure was performed in a layered fashion with subcutaneous tissue closed first using tension-bearing absorbable sutures to the level of the superficial fascia.) Fine/surface layer approximation (top stitches): Suture size: 3-0 Suture type: Prolene (polypropylene) Stitches: simple running Stitches comment: Epicuticular skin sutures were then placed with minimal tension. Suture removal (days): 14 Outcome: patient tolerated procedure well with no complications Post-procedure details: sterile dressing applied and wound care instructions given Post-procedure details comment: It was emphasized to the patient to contact the office for any signs of infection, uncontrollable bleeding, or complications. Dressing type: bandage Next visit: REC 6 month skin check, 14 day S/R documented in this encounter [facility] 10-19-2024 History of Present illness Narrative Reason for Appointment: Patient ID: Xena Ewing is a 68 y.o. female who presents for No chief complaint on file. Patient presents today via telephone call for a telehealth appointment. Patients Phone #: [phone] (mobile) Date: 10/19/2024 Time: 10:14 AM of the visit Platform Used: Audio call performed via in house telephone system. Location of Patient and Provider: Patient at home, provider at clinic Consent for Telehealth: Patient provided verbal consent to conduct the visit virtually via audio only phone call Current Medications: has a current medication list which includes the following prescription(s): alendronate, cyclobenzaprine, doxepin, famotidine, latanoprost, meloxicam, pantoprazole, sucralfate, tizanidine, and triamcinolone. Medical History: Active Ambulatory Problems Diagnosis Date Noted Foot pain, left 09/21/2022 Resolved Ambulatory Problems Diagnosis Date Noted No Resolved Ambulatory Problems Past Medical History: Diagnosis Date Appendicitis, acute 2021 Cramps of lower extremity Osteopenia Tendonitis Family History Problem Relation Name Age of Onset Other (MVA) Mother Bone cancer Father Diabetes Father Heart disease Father Stroke Father Cancer Father Diabetes Sister Osteoarthritis Sister Social History Tobacco Use Smoking status: Never Smokeless tobacco: Current Substance Use Topics Alcohol use: Never Comment: Caffine intake: 2-3 cups per day, coffee; tea Drug use: Not on file Past Surgical History: Procedure Laterality Date APPENDECTOMY 08/2021 CARPAL TUNNEL RELEASE Bilateral RT 1997, LT 1998 DE QUERVAIN'S RELEASE INNER EAR SURGERY 2005 repair ear drum LAPAROSCOPY DIAGNOSTIC / BIOPSY / ASPIRATION / LYSIS TOTAL ABDOMINAL HYSTERECTOMY W/ BILATERAL SALPINGOOPHORECTOMY 1996 TYMPANOPLASTY 2006 ULNAR NERVE REPAIR Right 2002 WRIST SURGERY Left 2017 Allergies Allergen Reactions Ciprofloxacin Other Reaction(s): Patient reported problems Codeine Nausea Only Other Reaction(s): GI Disturbance Other Reaction(s): Gastrointestinal upset Etodolac Other Reaction(s): itching Other Sulfa Antibiotics Hives Other Reaction(s): Unknown Vitals: Estimated body mass index is 21.47 kg/m as calculated from the following: Height as of 10/01/24: 5' 5 . Weight as of 10/01/24: 129 lb. BP: No LMP recorded. Assessment/Plan Encounter Diagnosis Name Primary? Osteopenia of hip, unspecified laterality Yes Reviewed Dexa scan with patient and Dexa Scan comparison from 2022 to 2024 and Osteopenia diagnosis. Patient will continue with weight bearing exercise. She is currently taking the recommend dose of Calcium and will begin taking Vitamin D 400-800IU and will add Fosamax weekly. Will repeat DEXA scan in 1 year. Today's telehealth visit consisted of spending 10 minutes talking to patient on the phone. Documented by Everett Silva NP on behalf of: Everett Silva NP documented in this encounter [facility] 10-01-2024 History of Present illness Narrative Patient: Xena Ewing : 1955 PCP: Anamika Valle MD SUBJECTIVE Patient presents today for follow up of right foot skin bx and is 14 d s/p biopsy Patient denies N/F/V/C. Pt states she has been WB with improvement. Allergies: Allergies Allergen Reactions Ciprofloxacin Other Reaction(s): [...] , Rfl: doxepin (SINEquan) 10 MG capsule, , Disp: , Rfl: famotidine (Pepcid) 40 MG tablet, , Disp: , Rfl: latanoprost (Xalatan) 0.005 % ophthalmic solution, instill 1 drop in both eyes at bedtime, Disp: , Rfl: meloxicam (Mobic) 7.5 MG tablet, 1 (one) time each day at the same time, Disp: , Rfl: pantoprazole (ProtoNix) 40 MG EC tablet, Take 40 mg by mouth Daily, Disp: , Rfl: sucralfate (Carafate) 1 g tablet, , Disp: , Rfl: tiZANidine (Zanaflex) 4 MG tablet, , Disp: , Rfl: triamcinolone (Kenalog) 0.1 % cream, Apply to affected areas, up to twice a day when flared, do not use one the face, groin, or underarms, 30 day supply, Disp: 454 g, Rfl: 11 Social History: Social History Socioeconomic History Marital [...] through 10. diminished hair growth b/l feet. Sutures intact to right with foot with negative erythema or drainage. VASC: Positive palpable pedal pulses bilaterally NEURO: Gross sensation intact to bilateral feet ORTHO: Positive pain on palpation to toenails of the left 1,2,3,4,5 toes and right 1,2,3,4,5 toes minimal foot pain to left foot scar negative pain on palpation of right foot lesion PATH: report of involuting and verruca to the right foot with scar ASSESSMENT 1. Neoplasm of uncertain behavior of skin PLAN Removal of sutures today and may begin to get foot wet. Pt to take nsaids as needed PRN pain Reviewed path report today. Semaj Sanchez DPM documented in this encounter [facility] 09-16-2024 History of Present illness Narrative Images [...] BONE, SOFT TISSUE, AND SKIN Mid Back [place] papule Lesion biopsy Type of biopsy: tangential [...] any new/changing lesions documented in this encounter [facility] 09-10-2024 History of Present illness Narrative Patient: eXna Ewing : 1955 PCP: Anamika Valle MD [...] Semaj Sanchez DPM documented in this encounter [facility] 09-09-2024 Note HNO ID: [id number] Author: ALEJANDRA WESTON MD Service: ? Author Type: Physician Type: Progress Notes Filed: 09/09/2024 16:46 Note Text: SECTION OF OTOLOGY, NEUROTOLOGY AND LATERAL SKULL BASE SURGERY Department of Otolaryngology - Head and Neck Surgery [facility] September 09, 2024 09/09/2024 Xena Ewing [...] Tobacco Use: High Risk (08/27/2024) Received from [facility] Patient History Smoking Tobacco Use: Never [...] side and sensorineu (more content not included)... [facility] 09-09-2024 History of Present illness Narrative Images from the original note were not included. SECTION OF OTOLOGY, NEUROTOLOGY AND LATERAL SKULL BASE SURGERY Department of Otolaryngology - Head and Neck Surgery [facility] September 09, 2024 09/09/2024 Xena Ewing [...] Tobacco Use: High Risk (08/27/2024) Received from [facility] Patient History Smoking Tobacco Use: Never [...] Referred to [facility] for comprehensive evaluation and treatment plan. Noted [...] MD Otology/Neurotology/Lateral Skull-Base Surgery Head and Neck [facility] Medical Decision Making: Problems: Moderate: New problem with uncertain prognosis Data: Unique source(s) for external note(s) reviewed: 1 Unique test result(s) reviewed: 1 Unique test(s) ordered: 1 Risk: Minimal: Minimal risk from testing/treatment Medical Decision Making Level: 4 - Moderate documented in this encounter [facility] 08-27-2024 History of Present illness Narrative Patient: [...] Semaj Sanchez DPM documented in this encounter [facility] 08-13-2024 History of Present illness Narrative [...] care. Right foot lesion specimen sent to [facility] for pathology report Semaj Sanchez DPM documented in this encounter [facility] 07-09-2024 History of Present illness Narrative [...] Semaj Sanchez DPM documented in this encounter [facility] 06-01-2024 History of Present illness Narrative [...] nursing note reviewed. Exam conducted with a tangled yarn worker present. Vitals: Estimated body mass index is [...] for annual unless needed otherwise. Documented by Everett Silva NP on behalf of: Severo Curry DO documented in this encounter [facility] 05-28-2024 History of Present illness Narrative [...] Semaj Sanchez DPM documented in this encounter [facility] 04-09-2024 History of Present illness Narrative [...] Semaj Sanchez DPM documented in this encounter [facility] 03-19-2024 History of Present illness Narrative [...] pathological diagnosis of specimen. Patient may take [id number] NSAID p.r.n. for pain Application of salinocaine [...] Semaj Sanchez DPM documented in this encounter [facility] 02-06-2024 Evaluation + Plan note Diagnostic Tests Pendingvon Willebrand Factor (vWF) Ag 02/06/24Lupus Anticoagulant 02/06/24vWF Activity 02/06/[address] [facility] 02-05-2024 Note General Surgery Offi ce/Clinic [...] Father. Immunizations Vaccine Date Status SARS-CoV-2 (COVID-19) [id number] 12/19/2021 Recorded SARS-CoV-2 ( (more content not included)... [facility] Comment on above: Result Comment: Elec tronically [...] limited to risks of scarring, darker or hand booked folder and stitcher pigmentary changes, recurrence, incomplete removal and infection. [...] any new/changing lesions documented in this encounter [facility] 10-23-2022 History of Present illness Narrative [...] Bariatric Surgery cc: Referring provider Anamika Valle [address] [place] [id number] Medical Decision Making: Problems: Low: Stable chronic illness Data: Independent interpretation of test from other physician/QHCP Medical Decision Making Level: 3 - Low documented in this encounter [facility] 08-31-2021 Note OPERATIVE NOTE OPERATION DATE: 08/31/2021 PREOPERATIVE DIAGNOSIS: Acute appendicitis. POSTOPERATIVE DIAGNOSIS: Acute appendicitis. PROCEDURE PERFORMED: Laparoscopic appendectomy. SURGEON: Elisabeth Rehman M.D. TEST LEAD APPLICATION TESTING: PINA Corona ANESTHESIA: General, 0.5% Marcaine for [...] DR ELISABETH REHMAN . 09/15/2021 06:33:00 [facility] Evaluation + Plan note No data available for this section [facility] [place] Evaluation note No assessment inform ation available [facility] Work Phone: Evaluation note Diagnosis Ventral hernia without obstruction or gangrene- Primary Ventral hernia, unspecified, without mention of obstruction or gangrene [facility] Other nonthrombocytopenic purpura (CMS/HCC)- Primary Actinic keratosis documented in this encounter [facility]* Diagnosis Neoplasm of uncertain behavior [...] [facility] Diagnosis Pain due to onychomycosis of toenails of both feet- Primary Verruca plantaris Plantar wart Foot pain, right Pain in soft tissues of limb Foot pain, left Pain in soft tissues of limb [facility] Diagnosis Well woman exam with [...] unspecified laterality- Primary [facility] Neoplasm of uncertain behavior of skin- Primary Verruca plantaris Plantar wart Foot pain, left Pain in soft tissues of limb [facility] Diagnosis 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 Tinnitus, unspecified laterality Temporomandibular joint disorder Temporomandibular joint disorders, unspecified [facility] Verruca plantaris- Primary Plantar wart Foot pain, left Pain in soft tissues of limb Neoplasm of uncertain behavior of skin [facility] Diagnosis Other atopic dermatitis- Primary Neoplasm of unspecified behavior of bone, soft tissue, and skin [facility] Diagnosis Neoplasm of uncertain behavior of skin- Primary [facility] Diagnosis Osteopenia of hip, unspecified laterality- Primary [facility] Diagnosis 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 [facility] [...] follow-up Semaj Sanchez DPM [facility] No data available for this section [facility] Progress note No data available for this section [facility] Summary Purpose Family History No Family [...] FoundDocuments on File Type Date 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 Advance Directives and Living Will Power of Balance Weigher Advance Directive Response Recorded Date/ Time Advance Directives No June 06, 2 018 3:52pm Chief Complaint and Reason for Visit Chief Complaint Screening Additional Source Comments INFORMATION SOURCE (unrecogn ized section and content) DATE CREATED AUTHOR 03/21/2018 [facility] DATE CREATED AUTHOR AUTHOR'S ORGANIZ ATION 10/14/2019 [facility] DATE CREATED AUTHOR AUTHOR'S ORGANIZ ATION 04/27/2022 [facility] DATE CREATED AUTHOR AUTHOR'S ORGANIZ ATION 01/03/2024 [facility] DATE CREATED AUTHOR AUTHOR'S ORGANIZ ATION 02/08/2024 [facility] DATE CREATED AUTHOR AUTHOR'S ORGANIZ ATION 02/13/2024 [facility] DATE CREATED AUTHOR AUTHOR'S ORGANIZ ATION 04/19/2024 [facility] DATE CREATED AUTHOR AUTHOR'S ORGANIZ ATION 09/10/2024 [facility] DATE CREATED AUTHOR AUTHOR'S ORGANIZ ATION 10/25/2024 [facility] Care Teams (unrecognized sec tion and content) Team Status: Active Member Role Status Dates Anamika Valle MD Primary Care Provider Active Team Status: Inactive Member Role Status Dates Anamika Valle MD Primary Care Provider Active Referral Self Attending Provider Active Hvac Service Tech Relationship Specialty Start Date End Date Anamika Valle MD PCP - General 10/24/04 Anamika Valle MD [address] [place] [address] Referring Family Medicine 10/05/22 Hvac Service Tech Relationship Specialty Start Date End Date Anamika Valle MD [address] [place] [address] PCP - General Family Medicine 09/21/22 Hvac Service Tech Relationship Specialty Start Date End Date Anamika Valle MD [address] [place] [address] PCP - General Family Medicine 09/21/22 Team Status: Inactive Member Role Status Dates Anamika Valle MD Primary Care Provide r, Referring Provider Active Start: December 27, 2023 End: December 27, 2023 Referral Self Attending Provider Active Start: O ctober 2023 End: December 27, 2023 Hvac Service Tech Relationship Specialty Start Date End Date Anamika Valle MD [address] [place] [facility] [address] PCP - General Family Medicine 09/21/22 Hvac Service Tech Relationship Specialty Start Date End Date Anamika Valle MD [address] [place] [facility] [address] PCP - General Family Medicine 09/21/22 Hvac Service Tech Relationship Specialty Start Date End Date Anamika Valle MD [address] [id number] PCP - General Family Medicine 09/21/22 Hvac Service Tech Relationship Specialty Start Date End Date Anamika Valle MD [address] [facility], [id number] PCP - General Family Medicine 09/21/22 Hvac Service Tech Relationship Specialty Start Date End Date Anamika Valle MD [address] [id number] PCP - General Family Medicine 09/21/22 Hvac Service Tech Relationship Specialty Start Date End Date Anamika Valle MD [address] [place] [facility] [address] PCP - General Family Medicine 09/21/22 Hvac Service Tech Relationship Specialty Start Date End Date Anamika Valle MD [address] [place] [facility] [address] PCP - General Family Medicine 09/21/22 Hvac Service Tech Relationship Specialty Start Date End Date Anamika Valle MD [address] [place] [facility] [address] PCP - General Family Medicine 09/21/22 Hvac Service Tech Relationship Specialty Start Date End Date Anamika Valle MD PCP - General 10/24/04 Anamika Valle MD [address] [place] [address] Referring Family Medicine 10/05/22 Hvac Service Tech Relationship Specialty Start Date End Date Anamika Valle MD PCP - General 10/24/04 Anamika Valle MD [address] [place] [address] Referring Family Medicine 10/05/22 Hvac Service Tech Relationship Specialty Start Date End Date Anamika Valle MD [address] [place] [address] PCP - General Family Medicine 09/21/22 Goals [...] or prosecute any alcohol or drug abuse patient.[facility] the event this information is protected by the Federal Confidentiality of Alcohol and Drug Abuse Patient Records regulations: The Federal rules restrict any use of the information to criminally investigate or prosecute any alcohol or drug abuse patient.[facility] the event this information is protected by the Federal Confidentiality of Alcohol and Drug Abuse Patient Records regulations: The Federal rules restrict any use of the information to criminally investigate or prosecute any alcohol or drug abuse patient.[facility] Reason for Visit (unrecogniz ed [...] Problem Specialty Diagnoses / Procedures Referred By Contkale t Referred To Contact Ent - Otolaryngology Diagnoses Tinnitus, unspecified laterality Procedures CONSULT TO ENT OFFICE/OUTPATIENT [facility] 60 MINUTES Anamika Valle MD [address] [place] [address] Phone: tel: fax: Referral ID Status Reason Start Date Expiration Date V isits Requested Visits Authorized [id number] Closed PCP Requested Referral 08/14/2024 08/14/2025 1 1 Reason Comments Follow-up 2wk lesion check Reason Comments Follow-up Bx check Reason Comments Mohs Micrographic Surgery FOR RECORDS PERTAINING TO PATIENTS WHO ARE [...] PRIMARY CLINICAL RECORDS. [facility] [employer] [facility], [facility]. provides no warranty or guarantee of the accuracy or completeness of information in this document.
--- NOTE | 2024-11-02 10:31 | ED.BACK1 ---
HPI HPI - Back Pain/Injury General Chief Complaint: Back Pain/Injury Stated Complaint: BACK PAIN Time Seen by Provider: 11/02/24 10:22 Source: patient Mode of arrival: Wheelchair Limitations: no limitations History of Present Illness HPI Narrative: The patient is a 68-year-old female who presents to the emergency department for evaluation of back pain. She has acute exacerbation of chronic back pain. She takes tenacity and from her primary care doctor. She stated yesterday somehow she threw it out. She is experiencing back pain in her bilateral lumbar area that radiates up into her shoulders and neck. Patient has not had any loss of bowel or bladder. No urinary retention. However she states that she had to go to the bathroom in the middle of the night and had to crawl to the bathroom but could not make it there and urinated on herself. She did note that she had to go to the bathroom and was unable to hold it due to the pain not because she was unaware that she was going. The patient states that she has taken tenacity in and an ointment that she is rubbed on her back and it has not helped. Patient denies any numbness or weakness in the lower extremities. No saddle anesthesia. Patient states that she does not want me to evaluate her because it is going to hurt her. She wants me to give her pain medications and that is why she came. Pain is a 10 out of 10. Worse to move or touch. Relieved by nothing. Pain is spasming. Related Data Home Medications ?Medication ?Instructions ?Recorded ?Confirmed doxepin 10 mg capsule 10 mg PO DAILY 01/19/24 04/15/24 latanoprost 0.005 % eye drops drp ophthalmic (eye) DAILY 01/19/24 tizanidine 4 mg tablet 4 mg PO Q12H 01/19/24 04/15/24 ascorbic acid (vitamin C) 1,000 mg 1 g PO DAILY 04/13/24 04/15/24 capsule biotin 1 mg capsule 1 mg PO DAILY 04/13/24 04/15/24 calcium 100 mg capsule mg PO 04/13/24 collagen supplement 04/13/24 meloxicam 7.5 mg tablet 7.5 mg PO DAILY 04/13/24 04/15/24 vitamin B complex 1 tab PO DAILY 04/13/24 04/15/24 zinc 50 mg capsule 50 mg PO DAILY 04/13/24 04/15/24 Previous Rx's ?Medication ?Instructions ?Recorded cyclobenzaprine 5 mg tablet 5 mg PO Q8H #14 tabs 11/02/24 hydrocodone 5 mg-acetaminophen 325 1 tab PO Q6H PRN pain #14 tabs 11/02/24 mg tablet ondansetron 4 mg disintegrating 4 mg PO Q6H PRN nausea and 11/02/24 tablet vomiting #14 tabs Allergies Allergy/AdvReac Type Severity Reaction Status Date / Time Sulfa (Sulfonamide Allergy Unknown Verified 04/13/24 09:36 Antibiotics) codeine AdvReac Intermediate UPSET Verified 11/02/24 10:39 STOMACH Opioid HPI Opioid Management Most Recent Opioid Data: Last Pain Scale 10 Today, 10:02 Review of Systems ROS Narrative 10 Systems were reviewed, and unless noted in the HPI, all other systems are reviewed, unremarkable, or noncontributory. PFSH PFS Medical History Arthritis ?M19.90 - Unspecified osteoarthritis, unspecified site (ICD-10) Constipation ?K59.00 - Constipation, unspecified (ICD-10) Varicose vein of leg ?I83.90 - Asymptomatic varicose veins of unspecified lower extremity (ICD-10) Renal cyst, left ?N28.1 - Cyst of kidney, acquired (ICD-10) Raynaud phenomenon ?I73.00 - Raynaud's syndrome without gangrene (ICD-10) Osteopenia ?M85.80 - Other specified disorders of bone density and structure, unspecified site (ICD-10) Occult blood positive stool ?R19.5 - Other fecal abnormalities (ICD-10) Multinodular goiter ?E04.2 - Nontoxic multinodular goiter (ICD-10) Lumbar disc disease ?M51.9 - Unspecified thoracic, thoracolumbar and lumbosacral intervertebral disc disorder (ICD-10) Gastroesophageal reflux ?K21.9 - Gastro-esophageal reflux disease without esophagitis (ICD-10) Complex regional pain syndrome I ?G90.50 - Complex regional pain syndrome I, unspecified (ICD-10) Cervical disc disorder ?M50.90 - Cervical disc disorder, unspecified, unspecified cervical region (ICD-10) Hearing loss ?H91.90 - Unspecified hearing loss, unspecified ear (ICD-10) Appendicitis ?K37 - Unspecified appendicitis (ICD-10) Surgical History History of total abdominal hysterectomy and bilateral salpingo-oophorectomy ?Z90.710 - Acquired absence of both cervix and uterus (ICD-10) ?Z90.722 - Acquired absence of ovaries, bilateral (ICD-10) ?Z90.79 - Acquired absence of other genital organ(s) (ICD-10) History of carpal tunnel release ?Z98.890 - Other specified postprocedural states (ICD-10) History of appendectomy ?Z90.49 - Acquired absence of other specified parts of digestive tract (ICD-10) Family History Other Family history of Alzheimer's disease Family history of bone cancer Family history of cancer Family history of coronary artery disease Family history of diabetes mellitus Family history of heart disease Family history of hypertension Family history of myocardial infarction Family history of stroke Social History Within the past year, how often did you have a drink containing alcohol: monthly or less Do you use any of these nicotine containing products: vaping products Non-prescribed substance use: cannabis (any form) Previous occupational history: retired Highest level of school completed/degree received: high school graduate Little interest or pleasure in doing things: not at all Feeling down, depressed, or hopeless: not at all Exam Narrative Exam Narrative: Prior to examining the patient, I have washed with hospital approved and provided Antiseptic 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 Prior to touching the patient, I asked for consent to examine the patient.? General: Alert and oriented, well nourished, mild distress. Eye: PERRL, EOMI, normal conjunctiva. Pupils are 2 to 3 mm and nonreactive. Patient wears glasses. HENT: Normocephalic, normal hearing, moist oral mucosa, no scleral icterus Neck: Supple, non-tender, no midline point tenderness. Lungs: Clear to auscultation and percussion, non-labored respiration. Heart: Normal rate, regular rhythm, no murmur, gallop or edema. Musculoskeletal: Patient has no evidence of swelling or deformity. Patient has no midline point tenderness to the spine. Patient has pain to light touch to the skin of the lumbar spine. Skin: Skin is warm, dry and pink, no rashes or lesions. Neurologic: Awake, alert, and oriented X3, CN II-XII intact. Patient provided a lane and effort poor examination of her extremities for my evaluation. She does have 2 out of 4 patellar reflexes that are symmetrical. In reference however to her muscle strength. It is symmetrical and she can dorsiflex, plantarflex, extensor hallucis longus, hip flexors, quadriceps, and hamstrings were symmetrical. She has no deficit to light touch or pressure. Effort was: About a 4 out of 5. We could not recruit more strength and the patient was not willing to try harder because of the discomfort. Psychiatric: Cooperative, appropriate mood and affect.? Following the conclusion of the examination, I have washed my hands thoroughly after removing examination gloves. Constitutional Vital Signs, click to edit/add: Last Vital Signs Temp 98.6 F 11/02/24 09:55 Pulse 74 11/02/24 12:04 Resp 18 11/02/24 12:04 BP 134/72 11/02/24 12:04 Pulse Ox 97 11/02/24 12:04 O2 Del Method Room Air 11/02/24 12:04 Course Course Hospital Course: Patient arrived to the emergency department complaining of neck and back pain. Patient is unwilling to comply with the proper examination. Patient will be given intramuscular injections of morphine 4 mg IM, Toradol 15 mg IM, methylprednisolone 125 mg IM. Will reassess the patient. Reevaluation(s) Reevaluation #1: Went back into evaluate the patient who had received the injections about 45 minutes prior to reassessment and the patient still states that her pain is about a 8-1/2 out of 10. Her significant other at bedside states that he feels like she sitting up better in the chair and appears more comfortable. They are really motivated to go home. He wanted to know why no imaging was done. He wanted an x-ray performed. I told him that we would be looking more at disc dysfunction which would be an MRI which we do not do in the emergency department. I did offer to do an x-ray to see if she had some type of spontaneous compression fracture but the patient had no midline point tenderness to suggest an acute fracture. The patient at this time is willing to try Flexeril that has worked well for her in the past we will going to give her a dose here. Leave the gentleman has someplace else to be and would like to take her home. Patient wants to go home and wants to get dressed. Patient has capacity to make her own medical decision. I am concerned because he stated that she was a little dopey when she walked to the bathroom. They do not live together. But he states he was willing to check on her throughout the day. I feel like this is a reasonable opportunity. The patient does not appear toxic or in distress. I did broach the subject of admitting the patient for pain control and they did not want to explore that option at this time. Time: 11:44 Vital Signs Vital signs: Vital Signs Temperature 98.6 F 11/02/24 09:55 Pulse Rate 75 11/02/24 09:55 Respiratory Rate 18 11/02/24 09:55 Blood Pressure 141/94 H 11/02/24 09:55 Pulse Oximetry 100 11/02/24 09:55 Oxygen Delivery Method Room Air 11/02/24 09:55 Temperature 98.6 F 11/02/24 09:55 Pulse Rate 74 11/02/24 12:04 Respiratory Rate 11/02/24 12:04 Blood Pressure 134/72 11/02/24 12:04 Pulse Oximetry 97 11/02/24 12:04 Oxygen Delivery Method Room Air 11/02/24 12:04 MDM - Back Pain/Injury Differential Diagnosis Differential diagnosis: Likely lumbar radiculopathy, sciatica, strain of lumbar region, renal colic, pyelonephritis, thoracic back pain, AAA and discitis Medical Records Attestation: I reviewed the patient's medical records. Discharge Plan Discharge Chief Complaint: Back Pain/Injury Clinical Impression: Acute lumbar back pain Patient Disposition: Home, Self-Care Time of Disposition Decision: 11:45 Condition: Good Mode of Transportation: Private Vehicle Prescriptions / Home Meds: New cyclobenzaprine 5 mg tablet 5 mg PO Q8H Qty: 14 0RF hydrocodone-acetaminophen 5-325 mg tablet 1 tab PO Q6H PRN (Reason: pain) Qty: 14 0RF ondansetron 4 mg tablet,disintegrating 4 mg PO Q6H PRN (Reason: nausea and vomiting) Qty: 14 0RF No Action latanoprost 0.005 % drops OPHTHALMIC (EYE) DAILY tizanidine 4 mg tablet 4 mg PO Q12H doxepin 10 mg capsule 10 mg PO DAILY meloxicam 7.5 mg tablet 7.5 mg PO DAILY ascorbic acid (vitamin C) 1,000 mg capsule 1 g PO DAILY vitamin B complex Tablet 1 tab PO DAILY zinc 50 mg capsule 50 mg PO DAILY calcium 100 mg capsule PO collagen supplement biotin 1 mg capsule 1 mg PO DAILY Print Language: Malagasy Instructions: Acute Low Back Pain (ED) Additional Instructions: Please follow-up with your primary care physician. Dr. Valle may want to prescribe you physical therapy or have you scheduled for an MRI. Please do not take tizanidine and Flexeril together. You should not take them on the same day at all. It is either 1 muscle relaxer or the other. Please use caution when taking with your prescribed pain medications today. I would make sure that I was alternating them. Referrals: Kenan Valle MD [Primary Care Provider, Family Practice] - 1 week Discharge Date/Time: 11/02/24 12:06
[2024-11-02] MEDS: MORPHINE SULFATE 4 MG/ML VIAL IM (10:48)
[2024-11-02] MEDS: KETOROLAC TROMETHAMINE 30 MG/ML VIAL IM (10:48)
[2024-11-02] MEDS: METHYLPREDNISOLONE SOD SUCC PF 125 MG/2 ML VIAL IM (10:48)
[2024-11-02] MEDS: CYCLOBENZAPRINE HCL 10 MG TABLET PO (11:56)
[2024-11-02 12:04] VITALS: BP 134/72; PULSE 74; O2SAT 97
== END 2024-11-02 12:06 | disposition home or self-care (01) ==
PROVIDERS: Emergency Provider Emergency Medicine; PCP Family Medicine
DX: M54.50 Low back pain, unspecified (principal); Z90.710 Acquired absence of both cervix and uterus; Z90.722 Acquired absence of ovaries, bilateral; Z90.79 Acquired absence of other genital organ(s); Z90.49 Acquired absence of other specified parts of digestive tract; F17.290 Nicotine dependence, other tobacco product, uncomplicated
CPT/HCPCS: 96372; 99284; J1885; J2270; J2919

== ENCOUNTER 2024-11-04 10:41 | Outpatient (OUT) | payer MEDICARE, SELFPAY ==
--- NOTE | 2024-11-04 10:50 | XR_ITS ---
[place] [id number] Patient Name: GILLIAN HERMOSILLO MRN: [id number] date: 1955 Sex: F Assigned Patient Location: [facility] Current Patient Location: [facility] Accession/Order Number: [id number] Exam Date: 11/04/2024 13:36 Report Date: 11/04/2024 13:38 At the request of: ANAMIKA BENAVIDES MD Procedure: XR lumbar spine min 4V 4 views Lumbar Spine HISTORY: Lower back pain. Twisting injury COMPARISON: None POSTSURGICAL CHANGES: None BONY ALIGNMENT: Adequate HYPERMOBILITY:No bending imaging. LISTHESIS:Mild L5-S1 retrolisthesis FRACTURE: None DEGENERATIVE CHANGES: Extensive L5-S1 spondylosis. Extensive multilevel facet degeneration SOFT TISSUES: Unremarkable BONY MINERALIZATION:Decreased XR/XR lumbar spine min 4V IMPRESSION: Extensive lower lumbar degenerative changes Impression dictated by: King Malin M.D. 11/04/2024 1:38 PM Dictation Location: [place] Electronically authenticated by: [id number] Date: 11/04/2024 13:38
--- OUTSIDE RECORDS SUMMARY | 2024-11-04 10:52 | XMS_ITS | CCD ---
Author Organization [facility] Care Team Providers Care Inclusion Special Education Teacher Name Role Phone PHYSICIAN, DEFAULT Unavailable Unavailable PHYSICIAN, DEFAULT Unavailable Unavailable JANINE VALLELAS Unavailable Unavailable JI, ABDULAZIM Unavailable Unavailable JI, ABDULAZIM Unavailable Unavailable JANINE VALLELAS Unavailable Unavailable ANAMIKA VALLE Unavailable Unavailable [place] Unavailable Unavailable JI, ABDULAZIM Unavailable Unavailable [place] Unavailable Unavailable BOUCHRA HARPER Unavailable Unavailable ANAMIKA [...] Attending Unavailable VICTORIA MARTIN Attending Unavailable SHIRIN ESCOBAR A Attending Unavailable SEMAJ SANCHEZ A Attending Unavailable Allergies Allergy Classification Reported Allergen(s) Allergy Type Date of Onset Reaction(s) Facility (20 sources) Codeine; Translations: [CODEINE] Drug Allergy 11-30-19 05 Nausea Only, Gastrointestinal irritation (disorder) [facility] Repository (1 source) Etodolac Drug Allergy 03-21-19 17 [facility] Repository (2 sources) no latex allergy [Other] Propensity to adverse reactions 11-30-19 05 [facility] (20 sources) Etodolac Allergy to substance 09-22-19 23 [facility] (20 sources) Sulfonamides (Antibiotic) Drug Allergy 07-14-19 22 Hives [facility] (20 sources) Other Propensity to adverse reactions 11-30-19 05 [facility] (1 source) Unable to Assess Drug allergy (disorder) 10-07-19 19 [facility] Repository (20 sources) Ciprofloxacin; Translations: [ciprofloxacin] Drug Allergy 06-02-19 25 Patient reported problems (finding) [facility] Medications Current Medications Medication Drug Class(es) [...] Start: 01-21-2023 take 2 tablets by mo [facility] at bedtime tiZANidine (Zanaflex) 4 MG [...] meds, nerve injury, and recurrence were addressed.) [place] Protocol: Procedure explained and questions answered to patient or proxy's satisfaction: Yes Test results available and properly labeled: Yes Pathology report reviewed: Yes Photo or diagram used for site identification: Yes Site/side marked: Yes Anesthesia: Anesthesia method: local infiltration Local anesthetic: lidocaine 1% WITH epi and sodium bicarbonate Procedure Details: Biopsy accession number: [id number] Biopsy lab: [facility] Date of biopsy: 09/16/2024 Frozen section biopsy [...] given on the day of surgery?: No Critical [facility] hospital Skin repairon 10-23-2024 Complexity: Intermediate Final length [...] uncontrollable bleeding, or complications. Dressing type: bandage Critical access hospital No Panel Informationon 09-16 Type of biopsy: [...] Photo taken Amount of lidocaine used: 1cc [facility] No Panel InformationOrdered By: Aydee Heart on 09-16-2024 [facility] CNOVon 09-09-2024 CNOV Office Visit (OTOLBD ) XENA EWING ([id number]) 1955 F [facility] Date Time Provider Department 09/09/24 12:00 PM ALEJANDRA WESTON OTOLBD During your visit today, we recorded the following information about you: Alejandra Weston MD 09/09/2024 4:46 PM Signed SECTION OF OTOLOGY, NEUROTOLOGY AND LATERAL SKULL BASE SURGERY Department of Otolaryngology - Head and Neck Surgery [facility] Surgical [place], [facility] September 09, 2024 09/09/2024 Xena Ewing is [...] Tobacco Use: High Risk (08/27/2024) Received from [facility] Patient History Smoking Tobacco Use: Never Smokeless [...] lesions, n (more content not included)... Normal [facility] Lab Miscellaneous-LCon 03-23 Lab Miscellaneous COMMENT Invalid Interpretation Code [facility] Comment on above: Result Comment: Test Ordered: [id number] von Willebrand Genes Result Comment MNEGA PDF report to be sent separately This test was developed and its performance characteristics determined by [facility]. It has not been cleared or approved by the Food and Drug Administration. Performed at: [address] [id number] PhD Alfred Hwang Performed By: #### 1 [id number] #### [facility] [address] [place] [id number] Lupus Anticoagon 02-10-2024 aPTT.lupus sensitive Coag (PPP) [Time] 29.4 second(s) Invalid Interpretation Code 0.0-43.5 [facility] Comment on above: Performed By: #### 2 [id number] #### [facility] [address] [place] [address]674 dRVVT Coag (PPP) [Time] 32.8 second(s) Invalid Interpretation Code 0.0-47.0 [facility] Comment on above: Performed By: #### 2 [id number] #### [facility] [address] [place] [address] 58973 Lupus anticoagulant two screening tests W Reflex Coag (PPP) [Interp] Comment: Invalid Interpretation Code [facility] Comment on above: Result Comment: No l upus anticoagulant was detected. Performed at: [address] [id number] MD Andrew Wilburn Performed By: #### 2 [id number] #### [facility] [address] [place] [address] 24718 vWF Activityon 02-10-2024 vWf ristocetin cofactor act actual/normal Platelet aggregation (PPP) [Relative time] 346 % High 50-200 [facility] Comment on above: Result Comment: Perf ormed at: [address] [id number] MD Andrew Wilburn Performed By: #### 2 [id number] #### [facility] [address] [place] [address] von Willebrand Factor (vWF) Agon 02-10-2024 vWf Ag actual/normal IA (PPP) [Relative mass conc] 368 % High 50-200 [facility] Comment on above: Result Comment: VWF [...] developed and its performance characteristics determined by [employer]. It has not been cleared or approved by the Food and Drug Administration. Performed at: [address] [id number] MD Andrew Wilburn Performed By: #### 2 [id number] #### [facility] [address] [place] [address] COAGULATIONOrdered By: Jeffrey Nelson on 02-06-2024 Platelet function (closure time) collagen+EPINEPHrine induced (Bld) [Time] 96 s Normal 70 - 138 second(s) [facility] Comment on above: Interpretive Data: N ormal ASA vWD Glanzmann s Thrombasthenia ------- ------ ------- COL/EPI Normal Abnormal Abnormal Abnormal Col/ADP Normal Normal Abnormal Abnormal Lab Miscellaneous-LCon 02-05 Test Code 706055 Invalid Interpretation Code [facility] Comment on above: Performed By: #### 1 [id number] #### [facility] [address] [place] [address] Test Name von Willebrand Invalid Interpretation Code [facility] Comment on above: Performed By: #### 1 [id number] #### [facility] [address] [place] [address] Plt Function Assayon 024 Platelet function (closure time) collagen+EPINEPHrine induced (Bld) [Time] 96 second(s) Normal 70-138 [facility] Comment on above: Result Comment: Norm al ASA vWD Glaangus???s Thrombasthenia ------- ------ ------- COL/EPI Normal Abnormal Abnormal Abnormal Col/ADP Normal Normal Abnormal Abnormal Performed By: #### 1 [id number] #### [facility] [address] [place] [address] Reference Laboratory Testing Ordered By: Paulette Frye on 02-06-2024 Test Code 507564 1 Invalid Interpretation Code [facility] Test Name von Willebrand Invalid Interpretation Code [facility] Summary[facility] 1 04-06-2023 Ambulatory Visit [...] you for choosing us for your care. [facility] Provider Letteron 01-10-2024 Provider Letter Provider Letter January 10, 2024 XENA EWING [address] [place] [address] [address] [place] [id number] : 1955 Dear Gildardo, We have been trying to reach you with no success regarding a referral from Dr Valle. It is important that you return our call upon receiving this letter. Also, at the time of your call, please provide us with your current information. Thank you for your prompt attention to this matter. Sincerely, [facility] General Surgery [phone] [facility] MM screening mammo BI w/CADo n 12-27-2023 MM screening mammo BI w/CAD [facility] Main [address] [address] Mammography Report Signed Patient: Xena Ewing MR#: [id number] : 1955 Acct:[id number] Age/Sex: 68 / F ADM Date: 12/27/23 Loc: [place] Room: Type: REG CLI Attending Dr: Referral [...] Schmidt Jr., D.O.12/27/2023 1:07 PM Dictation Location: [facility] Transcribed By: [facility] 12/27/23 1307 Dictated By: Blake Schmidt Jr, DO 12/27/23 130 Signed By: 12/27/23 1307 Normal [facility] No Panel Informationon 12-16 [facility] ACOG PANEL 2: 30 to 65on 04-26-2022 . . Normal [facility] Comment on above: Result Comment: Perf ormed at: WB Performed By: #### 4 [id number] #### [facility] [address] [address] [address] Kayy Virgen Age Gdln ACOG Testing 30-65 Normal [facility] Comment on above: Performed By: #### 4 [id number] #### [facility] [address] [place], [place] [address] Dr. Kayy Virgen DIAGNOSIS: Comment Normal [facility] Comment on above: Result Comment: UNSA TISFACTORY FOR EVALUATION. Performed at: WB Performed By: #### 4 [id number] #### [facility] [address] [address] [address] Kayy Virgen HPV Aptima Negative Normal Negative [facility] Comment on above: Result Comment: This nucleic acid amplification test detects fourteen high-risk HPV types (16,18,31,33,35,39,45,51,52,56,58,59,66,68) without differentiation. Performed at: =G Performed By: #### 4 [id number] #### [facility] [address] [address] [address] Kayy Virgen HPV Genotype Reflex Comment Normal [facility] Comment on above: Result Comment: Crit eria not met, HPV Genotype not performed. Performed at: WB Performed By: #### 4 [id number] #### [facility] [address] [place] [address] Dr. Kayy Virgen Methodology: Comment Normal [facility] Comment on above: Result Comment: This liquid based ThinPrep(R) pap test was screened with the use of an image guided system. Performed at: WB Performed By: #### 4 [id number] #### [facility] [address] [place] [address] Dr. Kayy Virgen Note: Comment Normal [facility] Comment on above: Result Comment: The Pap smear is a screening test designed to aid in the detection of premalignant and malignant conditions of the uterine cervix. It is not a diagnostic procedure and should not be used as the sole means of detecting cervical cancer. Both false-positive and false-negative reports do occur. . Performed at: WB Performed By: #### 4 [id number] #### [facility] [address] [place] [address] Dr. Kayy Virgen Performed by: Comment Normal [facility] Comment on above: Result Comment: Arturo Peters, Cage Loader (ASCP) Performed at: [facility]YT Performed By: #### 4 [id number] #### [facility] [address] [place] [address] Dr. Kayy Virgen QC reviewed by: Comment Normal [facility] [place] Comment on above: Result Comment: Pepe Cordova, Supervisory Cage Loader (ASCP) Performed at: WB Performed By: #### 4 [id number] #### [facility] [address] [address] [address] Kayy Virgen Recommendation: Comment Normal [facility] [place] Comment on above: Result Comment: Sugg est follow up as clinically appropriate. Performed at: WB Performed By: #### 4 [id number] #### [facility] [address] [address] [address] Kayy Virgen Specimen adequacy: Comment Normal [facility] Comment on above: Result Comment: Spec imen processed and examined but unsatisfactory for evaluation of epithelial abnormality because of insufficient cellularity. Performed at: WB Performed By: #### 4 [id number] #### [facility] [address] [place] [address] Dr. Kayy Virgen US THYROIDon 01-05-2022 US [...] TR 4 nodule, previously biopsied TI-RADS: The [employer] TI-RADS committee's white paper recommendations for thyroid lesions classified as TR3 (mildly suspicious) are listed below: > 1.5 cm. Follow-up ultrasound in 1, 3, and 5 years. > 2.5 cm. FNA. J. Am Anais Radiol 2017;14:587-595. Electronically authenticated by: ENIO MOHAN Date: 2022-01-05 15:25 Normal [facility] T4, T3U, FTI LABCORPon 11-10 Free Thyroxine Index 2.0 Normal 1.2-4.9 [facility] Comment on above: Performed By: #### T HYLC ####[facility] [address] [id number]. Kayy Virgen T3 Uptake 26 % Normal 24-39 [facility] Comment on above: Performed By: #### T HYLC ####[facility] [address] [address]Dr. Kayy Virgen T4 [Mass/Vol] 7.5 ug/dL Normal 4.5-12.0 [facility] Comment on above: Performed By: #### T HYLC ####[facility] [address] [id number]. Shereesamia Virgen CBC AUTO DIFFon 11-09-2021 BASO # 0.1 103/ul Normal 0.0-0.1 [facility] Comment on above: Performed By: #### C BC ####[facility] [address] [place], [place] [address]Dr. Kayy Virgen Basophils/100 WBC (Bld) 2.1 % Critically high 0.2-2.0 [facility] Comment on above: Performed By: #### C BC ####[facility] [address] [place], [place] [address]Dr. Shereesamia Virgen EO # 0.2 103/ul Normal 0.0-0.7 [facility] Comment on above: Performed By: #### C BC ####[facility] [address] [place], [place] [address]Dr. Kayy Virgen Eosinophils/100 WBC (Bld) 5.1 % Normal 0.9-7.0 [facility] Comment on above: Performed By: #### C BC ####[facility] [address] [place], [place] [address]Dr. Shereesamia Virgen Erythrocyte distribution width (RBC) [Ratio] 14.6 % Normal 11.0-15.0 [facility] Comment on above: Performed By: #### C BC ####[facility] [address] [place], [place] [address]Dr. Kayy Virgen Hematocrit (Bld) [Volume fraction] 38.5 % Normal 36.0-48.0 [facility] Comment on above: Performed By: #### C BC ####[facility] [address] [id number]. Kayy Virgen Hemoglobin (Bld) [Mass/Vol] 12.4 g/dL Normal 12.0-16.0 [facility] Comment on above: Performed By: #### C BC ####[facility] [address] [address]Dr. Kayy Virgen IG # 0.01 10e3/ul Normal 0.00-0.03 [facility] Comment on above: Performed By: #### C BC ####[facility] [address] [address]Dr. Kayy Virgen IG % 0.2 % Normal 0.0-0.5 [facility] Comment on above: Performed By: #### C BC ####[facility] [address] [address]Dr. Kayy Param LYMPH # 1.5 103/ul Normal 1.2-3.8 [facility] Comment on above: Performed By: #### C BC ####[facility] [address] [address]Dr. Kayy Param Lymphocytes/100 WBC (Bld) 33.7 % Normal 20.5-60.0 [facility] Comment on above: Performed By: #### C BC ####[facility] [address] [address]Dr. Shereesamia Virgen MANUAL DIFF REQ NO Normal [facility] [place] Comment on above: Performed By: #### C BC ####[facility] [address] [address]Dr. Kayy Virgen MCH (RBC) [Entitic mass] 26.7 pg Normal 26.7-34.0 [facility] Comment on above: Performed By: #### C BC ####[facility] [address] [address]Dr. Kayy Param MCHC (RBC) [Mass/Vol] 32.2 g/dL Normal 29.9-35.2 [facility] Comment on above: Performed By: #### C BC ####[facility] [address] [address]Dr. Kayy Virgen MCV (RBC) [Entitic vol] 82.8 fL Normal 81.0-99.0 [facility] Comment on above: Performed By: #### C BC ####[facility] [address] [address]Dr. Kayy Virgen MONO # 0.5 103/ul Normal 0.3-0.8 [facility] Comment on above: Performed By: #### C BC ####[facility] [address] [address]Dr. Shereesamia Virgen Monocytes/100 WBC (Bld) 11.9 % Normal 1.7-12.0 [facility] Comment on above: Performed By: #### C BC ####[facility] [address] [place], [place] [address]Dr. Kayy Param NEUT # 2.0 103/ul Normal 1.4-6.5 [facility] Comment on above: Performed By: #### C BC ####[facility] [address] [place], [place] [address]Dr. Shereesamia Virgen Neutrophils/100 WBC (Bld) 47.0 % Normal 43.0-75.0 [facility] Comment on above: Performed By: #### C BC ####[facility] [address] [place], [place] [address]Dr. Kayy Virgen Platelet mean volume (Bld) [Entitic vol] 9.7 fL Normal 9.5-13.5 [facility] Comment on above: Performed By: #### C BC ####[facility] [address] [place], [place] [address]Dr. Kayy Virgen PLT 269 103/ul Normal 150-450 [facility] Comment on above: Performed By: #### C BC ####[facility] [address] [place], [place] [address]Dr. Kayy Virgen RBC 4.65 106/ul Normal 4.20-5.40 [facility] Comment on above: Performed By: #### C BC ####[facility] [address] [id number]. Kayy Virgen WBC 4.3 103/ul Normal 4.0-11.0 [facility] Comment on above: Performed By: #### C BC ####[facility] [address] [id number]. Kayy Virgen GLYCOHEMOGLOBIN A1Con 2021 ADA RECOMMENDATION SEE BELOW Normal [facility] Comment on above: Result Comment: ADA RECOMMENDED LIMIT 4.0 - 6.0 ADA THERAPEUTIC TARGET < 7.0 ACTION SUGGESTED > 7.0 Performed By: #### A 1C #### [facility] [address] [place] [address] Dr. Kayy Virgen Glucose [Mass/Vol] 117 mg/dL Normal [facility] Comment on above: Performed By: #### A 1C #### [facility] [address] [place] [address] Dr. Kayy Virgen HbA1c (Bld) [Mass fraction] 5.7 % Normal 4.5-6.2 [facility] Comment on above: Performed By: #### A 1C #### [facility] [address] [place] [address] Dr. Kayy Virgen IRONon 11-09-2021 Iron [Mass/Vol] 100.0 ug/dL Normal 50.0-170.0 [facility] Comment on above: Performed By: #### I STPEHANI #### [facility] [address] [place] [address] Dr. Kayy Virgen PROF 14(COMP METB)on 022 Albumin [Mass/Vol] 4.0 g/dL Normal 3.4-5.0 [facility] Comment on above: Performed By: #### C MERRILL, TSH #### [facility] [address] [place] [address] Dr. Kayy Virgen Albumin/Globulin [Mass ratio] 1.1 {ratio} Normal [facility] Comment on above: Performed By: #### C MERRILL, TSH #### [facility] [address] [place] [address] Dr. Kayy Virgen ALP [Catalytic activity/Vol] 109 U/L Normal 46-116 [facility] Comment on above: Performed By: #### C MP, TSH #### [facility] [address] [address] [address] Kayy Virgen ALT [Catalytic activity/Vol] 26 U/L Normal 14-59 [facility] Comment on above: Performed By: #### C MP, TSH #### [facility] [address] [address] [address] Kayy Virgen Anion gap [Moles/Vol] 11.2 mmol/L Normal [facility] Comment on above: Performed By: #### C MP, TSH #### [facility] [address] [place] [address] Dr. Kayy Virgen AST [Catalytic activity/Vol] 58 U/L Critically high 15-37 [facility] Comment on above: Performed By: #### C MP, TSH #### [facility] [address] [address] [address] Kayy Virgen Bilirubin [Mass/Vol] 0.4 mg/dL Normal 0.2-1.0 [facility] Comment on above: Performed By: #### C MP, TSH #### [facility] [address] [place] [address] Dr. Kayy Virgen Calcium [Mass/Vol] 9.8 mg/dL Normal 8.5-10.1 [facility] Comment on above: Performed By: #### C MP, TSH #### [facility] [address] [address] [address] Kayy Virgen Chloride [Moles/Vol] 103 mmol/L Normal 98-107 [facility] Comment on above: Performed By: #### C MP, TSH #### [facility] [address] [address] [address] Kayy Virgen CO2 [Moles/Vol] 28.2 mmol/L Normal 21.0-32.0 [facility] Comment on above: Performed By: #### C MP, TSH #### [facility] [address] [place] [address] Dr. Kayy Virgen Creatinine [Mass/Vol] 0.98 mg/dL Normal 0.55-1.02 [facility] Comment on above: Performed By: #### C MP, TSH #### [facility] [address] [address] [address] Kayy Virgen EGFR-AF CANADIAN >60 Normal >=60 [facility] Comment on above: Performed By: #### C MP, TSH #### [facility] [address] [address] [address] Kayy Virgen EGFR-NON AF CANADIAN 57 mL/min/1.73m2 Critically low >=60 [facility] Comment on above: Performed By: #### C MP, TSH #### [facility] [address] [address] [address] Kayy Virgen Globulin (S) [Mass/Vol] 3.8 g/dL Normal [facility] Comment on above: Performed By: #### C MP, TSH #### [facility] [address] [address] [address] Kayy Virgen Glucose [Mass/Vol] 102 mg/dL Normal 74-106 [facility] Comment on above: Performed By: #### C MP, TSH #### [facility] [address] [address] [address] Kayy Virgen Potassium [Moles/Vol] 4.4 mmol/L Normal 3.5-5.1 [facility] Comment on above: Performed By: #### C MP, TSH #### [facility] [address] [address] [address] Kayy Virgen Protein [Mass/Vol] 7.8 g/dL Normal 6.4-8.2 [facility] Comment on above: Performed By: #### C MP, TSH #### [facility] [address] [address] [address] Kayy Virgen Sodium [Moles/Vol] 138 mmol/L Normal 136-145 [facility] Comment on above: Performed By: #### C MP, TSH #### [facility] [address] [address] [address] Kayy Virgen Urea nitrogen [Mass/Vol] 22.0 mg/dL Critically high 7.0-18.0 [facility] Comment on above: Performed By: #### C MP, TSH #### [facility] [address] [address] [address] Kayy Virgen Urea nitrogen/Creatinine [Mass ratio] 22.4 mg/mg Normal [facility] Comment on above: Performed By: #### C MP, TSH #### [facility] [address] [address] [address] Kayy Virgen TSHon 11-09-2021 TSH 1.200 uIU/mL Normal 0.358-3.740 [facility] Comment on above: Performed By: #### C MP, TSH #### [facility] [address] [place] [address] Dr. Kayy Virgen AMYLASEon 08-31-2021 Amylase [Catalytic activity/Vol] 34 U/L Normal 25-115 [facility] Comment on above: Performed By: #### A MY, CMP, LIPA ####[facility] [address] [place] [address]Dr. Kayy Virgen CBC AUTO DIFFon 08-31-2021 BASO # 0.1 103/ul Normal 0.0-0.1 [facility] Comment on above: Performed By: #### C BC ####[facility] [address] [place] [address]Dr. Kayy Virgen Basophils/100 WBC (Bld) 0.8 % Normal 0.2-2.0 [facility] Comment on above: Performed By: #### C BC ####[facility] Nfvizulsml9[address] [place] [address]DrIrene Virgen EO # 0.0 103/ul Normal 0.0-0.7 [facility] Comment on above: Performed By: #### C BC ####[facility] B[address] [place] [address]Dr. Kayy Virgen Eosinophils/100 WBC (Bld) 0.6 % Critically low 0.9-7.0 [facility] Comment on above: Performed By: #### C BC ####[facility] [address] [place], [place] [address]Dr. Kayy Virgen Erythrocyte distribution width (RBC) [Ratio] 13.9 % Normal 11.0-15.0 [facility] Comment on above: Performed By: #### C BC ####[facility] [address] [place], [place] [address]Dr. Kayy Virgen Hematocrit (Bld) [Volume fraction] 37.7 % Normal 36.0-48.0 [facility] Comment on above: Performed By: #### C BC ####[facility] Z[address] [place], [place] [address]Dr. Kayy Virgen Hemoglobin (Bld) [Mass/Vol] 12.3 g/dL Normal 12.0-16.0 [facility] Comment on above: Performed By: #### C BC ####[facility] [address] [place], [place] [address]Dr. Kayy Virgen IG # 0.02 10e3/ul Normal 0.00-0.03 [facility] Comment on above: Performed By: #### C BC ####[facility] [address] [place], [place] [address]Dr. Kayy Virgen IG % 0.3 % Normal 0.0-0.5 [facility] Comment on above: Performed By: #### C BC ####[facility] Tuq[address] [place], [place] [address]Dr. Kayy Virgen LYMPH # 1.4 103/ul Normal 1.2-3.8 [facility] Comment on above: Performed By: #### C BC ####[facility] Azrvs[address]fty[address] [place], [place] [address]Dr. Kayy Virgen Lymphocytes/100 WBC (Bld) 20.8 % Normal 20.5-60.0 [facility] Comment on above: Performed By: #### C BC ####[facility] Chrqxc[address]ub[address] [place], [place] [address]Dr. Kayy Virgen MANUAL DIFF REQ NO Normal [facility] [place] Comment on above: Performed By: #### C BC ####[facility] [address] [place] [id number]. Kayy Param MCH (RBC) [Entitic mass] 26.9 pg Normal 26.7-34.0 [facility] Comment on above: Performed By: #### C BC ####[facility] [address]bf[address] [place] [id number]. Kayy Param MCHC (RBC) [Mass/Vol] 32.6 g/dL Normal 29.9-35.2 [facility] Comment on above: Performed By: #### C BC ####[facility] [address] [place] [address]Dr. Shereesam[place] Virgen MCV (RBC) [Entitic vol] 82.5 fL Normal 81.0-99.0 [facility] Comment on above: Performed By: #### C BC ####[facility] [address] [place], [place] [address]Dr. Kayy Virgen MONO # 0.6 103/ul Normal 0.3-0.8 [facility] Comment on above: Performed By: #### C BC ####[facility] Ionhigylii[address] [place], [place] [address]Dr. She[place] Virgen Monocytes/100 WBC (Bld) 8.8 % Normal 1.7-12.0 [facility] Comment on above: Performed By: #### C BC ####[facility] [address] [place], [place] [address]Dr. Kayy Virgen NEUT # 4.5 103/ul Normal 1.4-6.5 [facility] Comment on above: Performed By: #### C BC ####[facility] [address] [place], [place] [id number]. Kayy Virgen Neutrophils/100 WBC (Bld) 68.7 % Normal 43.0-75.0 [facility] Comment on above: Performed By: #### C BC ####[facility] [address] [place], [place] [id number]. Kayy Virgen Platelet mean volume (Bld) [Entitic vol] 10.2 fL Normal 9.5-13.5 [facility] Comment on above: Performed By: #### C BC ####[facility] [address]wm[address] [place], [place] [address]Ls. Kayy Virgen PLT 265 103/ul Normal 150-450 [facility] Comment on above: Performed By: #### C BC ####[facility] [address]xar64[address] [place], [place] [address]Zq. Kayy Virgen RBC 4.57 106/ul Normal 4.20-5.40 [facility] Comment on above: Performed By: #### C BC ####[facility] M[address]lwzuzn90[address] [place], [place] [address]Uc. Kayy Virgen WBC 6.5 103/ul Normal 4.0-11.0 [facility] Comment on above: Performed By: #### C BC ####[facility] Nkvdpq[address]ue[address] [place], [place] [address]. [address] ABD/PELVIS WO CONon 08-31 [...] DANNA CASTLE Date: 2021-08-31 12:25 Normal [facility] ER URINE PROFILEon 2 Bilirubin Ql (U) Negative Normal NEGATIVE [facility] Comment on above: Performed By: #### E RUR #### [facility] [address] [place] [address] Dr. Kayy Virgen Clarity (U) CLEAR Normal CLEAR [facility] Comment on above: Performed By: #### E RUR #### [facility] [address] [place] [address] Dr. Kayy Virgen Color (U) LT. YELLOW Normal YELLOW [facility] Comment on above: Performed By: #### E RUR #### [facility] [address] [place] [address] Dr. Kayy CABRERA A micrscopic examination will be performed if indicated. Normal [facility] Comment on above: Performed By: #### E RUR #### [facility] [address] [place] [address] Dr. Kayy Virgen Glucose Ql (U) Negative Normal NEGATIVE [facility] Comment on above: Performed By: #### E RUR #### [facility] [address] [place] [address] Dr. Kayy Virgen Hemoglobin Ql (U) Negative Normal NEGATIVE [facility] Comment on above: Performed By: #### E RUR #### [facility] [address] [place] [address] Dr. Kayy Virgen Ketones Ql (U) Negative Normal NEGATIVE [facility] Comment on above: Performed By: #### E RUR #### [facility] [address] [place] [address] Dr. Kayy Virgen LEUKOCYTES Negative Normal NEGATIVE [facility] Comment on above: Performed By: #### E RUR #### [facility] [address] [place] [address] Dr. Kayy Virgen Nitrite Ql (U) Negative Normal NEGATIVE [facility] Comment on above: Performed By: #### E RUR #### [facility] [address] [place] [address] [address] Kayy Virgen pH (U) 6.0 [pH] Normal 5-9 [facility] Comment on above: Performed By: #### E RUR #### [facility] [address] [address] [address] Kayy Virgen SPEC GRAVITY <=1.005 Abnormal 1.005-<=1.[address] [place] [address] Comment on above: Performed By: #### E RUR #### [facility] [address] [address] [address] Kayy Virgen UA PROTEIN Negative Normal NEGATIVE/ TRACE [facility] Comment on above: Performed By: #### E RUR #### [facility] [address] [place] [address] Dr. Kayy Virgen UR MICRO IND NOT INDICATED Normal [facility] [place] Comment on above: Performed By: #### E RUR #### [facility] [address] [place] [address] Dr. Kayy Virgen Urobilinogen Qn (U) 0.2 {Cuauhtemoc'U}/dL Normal 0.2 - 1. 0 [facility] Comment on above: Performed By: #### E RUR #### [facility] [address] [place] [address] Dr. Kayy Virgen LIPASEon 08-31-2021 Lipase [Catalytic activity/Vol] 73.0 U/L Normal 73.0-393.0 [facility] Comment on above: Performed By: #### A MY, CMP, LIPA #### [facility] [address] [address] [address] Kayy Virgen PROF 14(COMP METB)on 022 Albumin [Mass/Vol] 3.6 g/dL Normal 3.4-5.0 [facility] Comment on above: Performed By: #### A MY, CMP, LIPA ####[facility] [address] [place] [address]Dr. Kayy Virgen Albumin/Globulin [Mass ratio] 0.9 {ratio} Normal [facility] Comment on above: Performed By: #### A MY, CMP, LIPA ####[facility] Rx[address]aquxky[address] [place] [address]Dr. Kayy Virgen ALP [Catalytic activity/Vol] 98 U/L Normal 46-116 [facility] Comment on above: Performed By: #### A MY, CMP, LIPA ####[facility] [address] [place] [address]Dr. Kayy Virgen ALT [Catalytic activity/Vol] 22 U/L Normal 14-59 [facility] Comment on above: Performed By: #### A MY, CMP, LIPA ####[facility] [address] [place] [address]Dr. Kayy Virgen Anion gap [Moles/Vol] 12.6 mmol/L Normal [facility] Comment on above: Performed By: #### A MY, CMP, LIPA ####[facility] [address] [place] [address]Dr. Kayy Virgen AST [Catalytic activity/Vol] 44 U/L Critically high 15-37 [facility] Comment on above: Performed By: #### A MY, CMP, LIPA ####[facility] [address] [place] [address]Dr. Kayy Virgen Bilirubin [Mass/Vol] 0.5 mg/dL Normal 0.2-1.0 [facility] Comment on above: Performed By: #### A MY, CMP, LIPA ####[facility] Ofq[address]dpfmw[address] [place] [address]Dr. Kayy Virgen Calcium [Mass/Vol] 9.2 mg/dL Normal 8.5-10.1 [facility] Comment on above: Performed By: #### A MY, CMP, LIPA ####[facility] [address] [place] [address]Dr. Kayy Virgen Chloride [Moles/Vol] 104 mmol/L Normal 98-107 [facility] Comment on above: Performed By: #### A MY, CMP, LIPA ####[facility] [address]foin[address] [place] [id number]. Kayy Virgen CO2 [Moles/Vol] 24.3 mmol/L Normal 21.0-32.0 [facility] Comment on above: Performed By: #### A MY, CMP, LIPA ####[facility] [address] [place] [address]Dr. Kayy Virgen Creatinine [Mass/Vol] 0.87 mg/dL Normal 0.55-1.02 [facility] Comment on above: Performed By: #### A MY, CMP, LIPA ####[facility] [address] [place] [address]Dr. Kayy Virgen EGFR-AF CANADIAN >60 Normal >=60 [facility] Comment on above: Performed By: #### A MY, CMP, LIPA ####[facility] [address] [place] [address]Dr. Kayy Param EGFR-NON AF CANADIAN >60 Normal >=60 [facility] Comment on above: Performed By: #### A MY, CMP, LIPA ####[facility] [address] [place] [address]Dr. Kayy Virgen Globulin (S) [Mass/Vol] 4.0 g/dL Normal [facility] Comment on above: Performed By: #### A MY, CMP, LIPA ####[facility] Hzgiaanaqs[address] [place] [address]Dr. Kayy Virgen Glucose [Mass/Vol] 96 mg/dL Normal 74-106 [facility] Comment on above: Performed By: #### A MY, CMP, LIPA ####[facility] [address]urwp[address] [place] [address]Dr. Kayy Virgen Potassium [Moles/Vol] 3.9 mmol/L Normal 3.5-5.1 [facility] Comment on above: Performed By: #### A MY, CMP, LIPA ####[facility] [address] [place] [address]Dr. Kayy Param Protein [Mass/Vol] 7.6 g/dL Normal 6.4-8.2 [facility] Comment on above: Performed By: #### A MY, CMP, LIPA ####[facility] Oct[address]ogdz[address] [place], [place] [address]Vr. Kayy Virgen Sodium [Moles/Vol] 137 mmol/L Normal 136-145 [facility] Comment on above: Performed By: #### A MY, CMP, LIPA ####[facility] X[address]flu[address] [place], [place] [address]If. Kayy Virgen Urea nitrogen [Mass/Vol] 11.0 mg/dL Normal 7.0-18.0 [facility] Comment on above: Performed By: #### A MY, CMP, LIPA ####[facility] [address] [place], [place] [address]Op. Kayy Virgen Urea nitrogen/Creatinine [Mass ratio] 12.6 mg/mg Normal [facility] Comment on above: Performed By: #### A MY, CMP, LIPA ####[facility] [address] [place], [place] [address]Eb. Kayy Virgen US THYROID FN ASP BXon 07-05 US THYROID FN ASP BX Begin Addendum #1 COLLECTED DATE/TIME: 06/29/2021 13:56 EDT Final Diagnosis Report for [facility] [place] (A/B) RIGHT THYROID NODULE; FINE NEEDLE [...] 2. Pathology results are pending. Normal [facility] US THYROIDon 06-21-2021 US THYROID EXAMINATION: [...] nodule. Fine needle aspiration recommended TI-RADS: The [employer] TI-RADS committee's white paper recommendations for thyroid lesions classified as TR4 (moderately suspicious) are listed below: > 1.0 cm. Follow-up ultrasound in 1, 2, 3, and 5 years. > 1.5 cm. FNA. J. Am Anais Radiol 2017;14:587-595. Electronically authenticated by: ENIO MOHAN Date: 2021-06-21 12:10 Normal [facility] US CAROTID ART BILon 022 US [...] DANNA CASTLE Date: 2021-06-08 13:16 Normal [facility] Blood Occult Stool Screen #1 on 10-13-2019 Date, Stool #1 [id number] [facility] [place], [place] Date, Stool #2 [...] [place], [place] Time, Stool #3 NOT REPORTED [facility]- [place], [place] Occult Blood, Fecalon 2019 Occult Blood 1 Negative Normal NEG [facility] Comment on above: Performed By: #### O BN #### [facility] [address] [place] [place] [address] Cruise Agent: Elisabeth Worthy MD Specimen 1 Date [facility] Comment on above: Performed By: #### O BN #### [facility] [address] [place] [place] [address] Cruise Agent: Elisabeth Worthy MD Specimen 1 Time 1199 [facility] Comment on above: Performed By: #### O BN #### [facility] [address] [place] [place] [address] Cruise Agent: Elisabeth Worthy MD Specimen 2 Date NOT REPORTED Normal [facility] Comment on above: Performed By: #### O BN #### [facility] [address] [place] [address] Cruise Agent: Elisabeth Worthy MD Specimen 2 Time NOT REPORTED Normal [facility] Comment on above: Performed By: #### O BN #### [facility] [address] [place] [place] [address] Cruise Agent: Elisabeth Worthy MD Specimen 3 Date NOT REPORTED Normal [facility] Comment on above: Performed By: #### O BN #### [facility] [address] [place], [place] [id number] Cruise Agent: Elisabeth Worthy MD Specimen 3 Time NOT REPORTED Normal [facility] Comment on above: Performed By: #### O BN #### [facility] [address] [place], [place] [id number] Cruise Agent: Elisabeth Worthy MD Occult Blood 2 NOT REPORTED Normal NEG [facility] Comment on above: Performed By: #### O BN #### [facility] [address] [place] [place] [address] Cruise Agent: Elisabeth Worthy MD Occult Blood 3 NOT REPORTED Normal NEG [facility] Comment on above: Performed By: #### O BN #### [facility] [address] [place] [phone] Cruise Agent: Elisabeth Worthy MD Free Thyroxine Indexon 10-07 FTI Ratio 2.0 ug/dL Normal 1.4-3.[address] [facility] Comment on above: Performed By: #### Jeramie PAUL FE #### [address] [phone] Cruise Agent: Otoniel Ash MD #### TSH, LIPR, CP, GLYHGB, CDP #### [facility] [address] [place] [address] Cruise Agent: Elisabeth Worthy MD T4 [Mass/Vol] 29.74 % Normal 22.5-37.0 [facility] Comment on above: Performed By: #### F HUMBERTO, FE #### [address] [id number] Cruise Agent: Otoniel Ash MD #### TSH, LIPR, CP, GLYHGB, CDP #### [facility] [address] [place] [address] Cruise Agent: Elisabeth Worthy MD T4 [Mass/Vol] 6.6 ug/dL Normal 4.5-10.9 [facility] Comment on above: Performed By: #### F TI, FE #### [facility] [address] [place], [place] [id number] Cruise Agent: Otoniel Ash MD #### TSH, LIPR, CP, GLYHGB, CDP #### [facility] [address] [place] [place] [address] Cruise Agent: Elisabeth Worthy MD Ironon 10-08-2019 Iron [Mass/Vol] 73 ug/dL Normal 37-145 [facility] Comment on above: Performed By: #### F TI, FE #### [facility] [address] [place], [place] [id number] Cruise Agent: Otoniel Ash MD #### TSH, LIPR, CP, GLYHGB, CDP #### [facility] [address] [place] [address] Cruise Agent: Elisabeth Worthy MD T3 uptake and FTIon 10-08-19 Free Thyroxine Index 2 ug/dL 1.4 - 3 .1 ug/dL [place] T4 [Mass/Vol] 29.74 % 22.5 - 37 % [place] T4, Total 6.6 ug/dL 4.5 - 10.9 ug/dL [place] CBC Auto Differentialon 09-16 Basophils (Bld) [#/Vol] 0.07 10*3/uL [place] Basophils/100 WBC (Bld) 1 % 0 - 2 % [place] Differential Type NOT REPORTED [place] Eosinophils (Bld) [#/Vol] 0.06 10*3/uL [place] Eosinophils/100 WBC (Bld) 1 % 1 - 4 % [place] Erythrocyte distribution width (RBC) [Ratio] 14.5 % High 11.8 - 14.4 % [place] Hematocrit (Bld) [Volume fraction] 42.4 % 36.3 - 47.1 % [place] Hemoglobin (Bld) [Mass/Vol] 13.2 g/dL 11.9 - 15.1 g/dL [place] Immature granulocytes (Bld) [#/Vol] 10*3/uL [place] Immature granulocytes (Bld) [#/Vol] 0 % 0 [place] Interpretation and review of laboratory results Abnormal [place] Lymphocytes (Bld) [#/Vol] 1.87 10*3/uL [place] Lymphocytes/100 WBC (Bld) 33 % 24 - 43 % [place] MCH (RBC) [Entitic mass] 26.1 pg 25.2 - 33.5 pg [place] MCHC (RBC) [Mass/Vol] 31.1 g/dL 28.4 - 34.8 g/dL [place] MCV (RBC) [Entitic vol] 84.0 fL 82.6 - 102.9 fL [place] Monocytes (Bld) [#/Vol] 0.45 10*3/uL [place] Monocytes/100 WBC (Bld) 8 % 3 - 12 % [place] Platelet mean volume (Bld) [Entitic vol] 10.1 fL 8.1 - 13.5 fL [place] Platelets (Bld) [#/Vol] 270 10*3/uL [place] Platelets (Bld) [#/Vol] NOT REPORTED [place] RBC (Bld) [#/Vol] 5.05 10*6/uL 3.95 - 5.1 1 m/uL [place] RBC morphology finding Nom (Bld) NOT REPORTED [place] Segmented neutrophils/100 WBC (Bld) 57 % 36 - 65 % [place] Segs Absolute 3.17 [place] WBC (Bld) [#/Vol] 5.6 10*3/uL [place] WBC (Bld) [#/Vol] 0.0 10*3/uL 0.0 per 10 0 WBC [place] WBC Morphology NOT REPORTED [place] CBC with Diffon 10-07-2019 Abs. Basophil 0.07 k/uL Normal 0.00-0.20 [facility] Comment on above: Performed By: #### F TI, FE #### [address] [address] Cruise Agent: Otoniel Ash MD #### TSH, LIPR, CP, GLYHGB, CDP #### [facility] [address] [place] [address] [place] [address] Cruise Agent: Elisabeth Worthy MD Abs.Imm.Granulocyte <0.03 Normal 0.00-0.[address] [facility] Comment on above: Performed By: #### F TI, FE #### [place] [address] Cruise Agent: Otoniel Ash MD #### TSH, LIPR, CP, GLYHGB, CDP #### [facility] [address] [place] [address] [place] [phone] Cruise Agent: Elisabeth Worthy MD Abs.Neutrophil (Seg) 3.17 k/uL Normal 1.50-8.10 [facility] Comment on above: Performed By: #### F TI, FE #### [place] [address] Cruise Agent: Otoniel Ash MD #### TSH, LIPR, CP, GLYHGB, CDP #### [address] [place] [phone] Cruise Agent: Elisabeth Worthy MD Basophils/100 WBC (Bld) 1 % Normal 0-[address] [facility] Comment on above: Performed By: #### F TI, FE #### [address] [address] Cruise Agent: Otoniel Ash MD #### TSH, LIPR, CP, GLYHGB, CDP #### [facility] [address] [place] [phone] Cruise Agent: Elisabeth Worthy MD Eosinophils (Bld) [#/Vol] 0.06 10*3/uL Normal 0.00-0.[address] [facility] Comment on above: Performed By: #### F TI, FE #### [address] [phone] Cruise Agent: Otoniel Ash MD #### TSH, LIPR, CP, GLYHGB, CDP #### [address] [place] [phone] Cruise Agent: Elisabeth Worthy MD Eosinophils/100 WBC (Bld) 1 % Normal 1-[address] [facility] Comment on above: Performed By: #### F TI, FE #### [address] [address] Cruise Agent: Otoniel Ash MD #### TSH, LIPR, CP, GLYHGB, CDP #### [address] [place] [phone] Cruise Agent: Elisabeth Worthy MD Erythrocyte distribution width (RBC) [Ratio] 14.5 % High 11.8-14.[address] [facility] Comment on above: Performed By: #### F TI, FE #### [address] [id number] Cruise Agent: Otoniel Ash MD #### TSH, LIPR, CP, GLYHGB, CDP #### [address] [place] [phone] Cruise Agent: Elisabeth Worthy MD Hematocrit (Bld) [Volume fraction] 42.4 % Normal 36.3-47.[address] [facility] Comment on above: Performed By: #### F TI, FE #### [address] [phone] Cruise Agent: Otoniel Ash MD #### TSH, LIPR, CP, GLYHGB, CDP #### [address] [place] [address] Cruise Agent: Elisabeth Worthy MD Hemoglobin (Bld) [Mass/Vol] 13.2 g/dL Normal 11.9-15.[address] [facility] Comment on above: Performed By: #### F TI, FE #### [address] [phone] Cruise Agent: Otoniel Ash MD #### TSH, LIPR, CP, GLYHGB, CDP #### [address] [place] [phone] Cruise Agent: Elisabeth Worthy MD Immature granulocytes (Bld) [#/Vol] 0 % Normal [address] [facility] Comment on above: Performed By: #### F TI, FE #### [address] [phone] Cruise Agent: Otoniel Ash MD #### TSH, LIPR, CP, GLYHGB, CDP #### [address] [place] [phone] Cruise Agent: Elisabeth Worthy MD Lymphocytes (Bld) [#/Vol] 1.87 10*3/uL Normal 1.10-3.[address] [facility] Comment on above: Performed By: #### F TI, FE #### [address] [phone] Cruise Agent: Otoniel Ash MD #### TSH, LIPR, CP, GLYHGB, CDP #### [address] [place] [address] Cruise Agent: Elisabeth Worthy MD Lymphocytes/100 WBC (Bld) 33 % Normal 24-[address] [facility] Comment on above: Performed By: #### F TI, FE #### [address] [phone] Cruise Agent: Otoniel Ash MD #### TSH, LIPR, CP, GLYHGB, CDP #### [address] [place] [phone] Cruise Agent: Elisabeth Worthy MD MCH (RBC) [Entitic mass] 26.1 pg Normal 25.2-33.[address] [facility] Comment on above: Performed By: #### F TI, FE #### [address] [address] Cruise Agent: Otoniel Ash MD #### TSH, LIPR, CP, GLYHGB, CDP #### [address] [place] [phone] Cruise Agent: Elisabeth Worthy MD MCHC (RBC) [Mass/Vol] 31.1 g/dL Normal 28.4-34.8 [facility] Comment on above: Performed By: #### F TI, FE #### [address] [address] Cruise Agent: Otoniel Ash MD #### TSH, LIPR, CP, GLYHGB, CDP #### [address] [place] [phone] Cruise Agent: Elisabeth Worthy MD MCV (RBC) [Entitic vol] 84.0 fL Normal 82.6-102.[address] [facility] Comment on above: Performed By: #### F TI, FE #### [address] [phone] Cruise Agent: Otoniel Ash MD #### TSH, LIPR, CP, GLYHGB, CDP #### [address] [place] [phone] Cruise Agent: Elisabeth Worthy MD Monocytes (Bld) [#/Vol] 0.45 10*3/uL Normal 0.10-1.[address] [facility] Comment on above: Performed By: #### F TI, FE #### [place] [address] [place] [address] Cruise Agent: Otoniel Ash MD #### TSH, LIPR, CP, GLYHGB, CDP #### [facility] [address] [place], [place] [phone] Cruise Agent: Elisabeth Worthy MD Monocytes/100 WBC (Bld) 8 % Normal 3-[address] [facility] Comment on above: Performed By: #### F TI, FE #### [address] [id number] Cruise Agent: Otoniel Ash MD #### TSH, LIPR, CP, GLYHGB, CDP #### [address] [place] [phone] Cruise Agent: Elisabeth Worthy MD Neutrophil (Seg) 57 % Normal 36-65 [facility] Comment on above: Performed By: #### F TI, FE #### [address] [address] Cruise Agent: Otoniel Ash MD #### TSH, LIPR, CP, GLYHGB, CDP #### [address] [place] [phone] Cruise Agent: Elisabeth Worthy MD NRBC Automated 0.0 per 100 WBC Normal 0.[address] [facility] Comment on above: Performed By: #### F TI, FE #### [address] [address] Cruise Agent: Otoniel Ash MD #### TSH, LIPR, CP, GLYHGB, CDP #### [facility] [address] [place], [place] [phone] Cruise Agent: Elisabeth Worthy MD Platelet mean volume (Bld) [Entitic vol] 10.1 fL Normal 8.1-13.[address] [facility] Comment on above: Performed By: #### F TI, FE #### [address] [address] Cruise Agent: Otoniel Ash MD #### TSH, LIPR, CP, GLYHGB, CDP #### [address] [place], [place] [phone] Cruise Agent: Elisabeth Worthy MD Platelets (Bld) [#/Vol] 270 10*3/uL Normal 138-[address] [facility] Comment on above: Performed By: #### F TI, FE #### [address] [address] Cruise Agent: Otoniel Ash MD #### TSH, LIPR, CP, GLYHGB, CDP #### [address] [place] [phone] Cruise Agent: Elisabeth Worthy MD RBC (Bld) [#/Vol] 5.05 10*6/uL Normal 3.95-5.[address] [facility] Comment on above: Performed By: #### F TI, FE #### [address] [address] Cruise Agent: Otoniel Ash MD #### TSH, LIPR, CP, GLYHGB, CDP #### [address] [place] [phone] Cruise Agent: Elisabeth Worthy MD WBC (Bld) [#/Vol] 5.6 10*3/uL Normal 3.5-11.[address] [facility] Comment on above: Performed By: #### F TI, FE #### [address] [address] Cruise Agent: Otoniel Ash MD #### TSH, LIPR, CP, GLYHGB, CDP #### [address] [place] [phone] Cruise Agent: Elisabeth Worthy MD Auto Diff Performed NOT REPORTED Normal [facility] Comment on above: Performed By: #### F TI, FE #### [address] [address] Cruise Agent: Otoniel Ash MD #### TSH, LIPR, CP, GLYHGB, CDP #### [address] [place] [phone] Cruise Agent: Elisabeth Worthy MD Platelets (Bld) [#/Vol] NOT REPORTED Normal [facility] Comment on above: Performed By: #### F TI, FE #### [address] [address] Cruise Agent: Otoniel Ash MD #### TSH, LIPR, CP, GLYHGB, CDP #### [address] [place] [address] Cruise Agent: Elisabeth Worthy MD RBC morphology finding Nom (Bld) NOT REPORTED Normal [facility] Comment on above: Performed By: #### F TI, FE #### [address] [address] Cruise Agent: Otoniel Ash MD #### TSH, LIPR, CP, GLYHGB, CDP #### [address] [place] [phone] Cruise Agent: Elisabeth Worthy MD WBC Morphology NOT REPORTED Normal [facility] Comment on above: Performed By: #### F TI, FE #### [address] [address] Cruise Agent: Otoniel Ash MD #### TSH, LIPR, CP, GLYHGB, CDP #### [address] [place] [phone] Cruise Agent: Elisabeth Worthy MD Comp Metabolic Profon 2019 (cont.) Normal [facility] Comment on above: Result Comment: Aver age GFR for 60-69 years old: 85 mL/min/1.73sq m Chronic Kidney Disease: <60 mL/min/1.73sq m Kidney failure: <15 mL/min/1.73sq m eGFR calculated using average adult body mass. Additional eGFR calculator available at: http://www.[employer]/multiple_crcl_2011.htm Performed By: #### F TI, FE #### [address] [address] Cruise Agent: Otoniel Ash MD #### TSH, LIPR, CP, GLYHGB, CDP #### [facility] [address] [place] [place] [address] Cruise Agent: Elisabeth Worthy MD Albumin [Mass/Vol] 4.5 g/dL Normal 3.5-5.[address] [facility] Comment on above: Performed By: #### F TI, FE #### [address] [address] Cruise Agent: Otoniel Ash MD #### TSH, LIPR, CP, GLYHGB, CDP #### [facility] [address] [place] [place] [address] Cruise Agent: Elisabeth Worthy MD Albumin/Globulin [Mass ratio] 1.4 {ratio} Normal 1.0-2.[address] [facility] Comment on above: Performed By: #### F TI, FE #### [address] [address] Cruise Agent: Otoniel Ash MD #### TSH, LIPR, CP, GLYHGB, CDP #### [facility] [address] [place] [place] [address] Cruise Agent: Elisabeth Worthy MD Alkaline Phos 94 U/L Normal 35-104 [facility] Comment on above: Performed By: #### F TI, FE #### [address] [address] Cruise Agent: Otoniel Ash MD #### TSH, LIPR, CP, GLYHGB, CDP #### [facility] [address] [place], [place] [phone] Cruise Agent: Elisabeth Worthy MD ALT [Catalytic activity/Vol] 10 U/L Normal 5-[address] [facility] Comment on above: Performed By: #### F TI, FE #### [address] [address] Cruise Agent: Otoniel Ash MD #### TSH, LIPR, CP, GLYHGB, CDP #### [address] [place], [place] [phone] Cruise Agent: Elisabeth Worthy MD Anion gap [Moles/Vol] 12 mmol/L Normal 9-17 [facility] Comment on above: Performed By: #### F TI, FE #### [address] [address] Cruise Agent: Otoniel Ash MD #### TSH, LIPR, CP, GLYHGB, CDP #### [address] [place], [place] [phone] Cruise Agent: Elisabeth Worthy MD AST [Catalytic activity/Vol] 40 U/L High <[address] [facility] Comment on above: Performed By: #### F TI, FE #### [address] [address] Cruise Agent: Otoniel Ash MD #### TSH, LIPR, CP, GLYHGB, CDP #### [address] [place], [place] [phone] Cruise Agent: Elisabeth Worthy MD Bilirubin Ql (U) 0.27 mg/dL Low 0.3-1.2 [facility] Comment on above: Performed By: #### F TI, FE #### [address] [address] Cruise Agent: Otoniel Ash MD #### TSH, LIPR, CP, GLYHGB, CDP #### [facility] [address] [place], [place] [phone] Cruise Agent: Elisabeth Worthy MD BUN/CRE Ratio 22 High 9-20 [facility] Comment on above: Performed By: #### F TI, FE #### [address] [address] Cruise Agent: Otoniel Ash MD #### TSH, LIPR, CP, GLYHGB, CDP #### [facility] [address] [place] [address] Dr. [place], [place] [phone] Cruise Agent: Elisabeth Worthy MD Calcium [Mass/Vol] 10.0 mg/dL Normal 8.6-10.[address] [facility] Comment on above: Performed By: #### F TI, FE #### [address] [address] Cruise Agent: Otoniel Ash MD #### TSH, LIPR, CP, GLYHGB, CDP #### [facility] [address] [place] [address] Dr. [place], [place] [phone] Cruise Agent: Elisabeth Worthy MD Chloride [Moles/Vol] 105 mmol/L Normal 98-107 [facility] Comment on above: Performed By: #### F TI, FE #### [address] [address] Cruise Agent: Otoniel Ash MD #### TSH, LIPR, CP, GLYHGB, CDP #### [facility] [address] [place] [address] [place], [place] [phone] Cruise Agent: Elisabeth Worthy MD CO2 [Moles/Vol] 21 mmol/L Normal 20-31 [facility] Comment on above: Performed By: #### F TI, FE #### [address] [address] Cruise Agent: Otoniel Ash MD #### TSH, LIPR, CP, GLYHGB, CDP #### [address] [place], [place] [phone] Cruise Agent: Elisabeth Worthy MD Creatinine [Mass/Vol] 0.79 mg/dL Normal 0.50-0.90 [facility] Comment on above: Performed By: #### F TI, FE #### [address] [address] Cruise Agent: Otoniel Ash MD #### TSH, LIPR, CP, GLYHGB, CDP #### [facility] [address] [place] [address] [place] [address] Cruise Agent: Elisabeth Worthy MD GFR, Amer >60 Normal >60 [facility] Comment on above: Performed By: #### F TI, FE #### [address] [address] Cruise Agent: Otoniel Ash MD #### TSH, LIPR, CP, GLYHGB, CDP #### [facility] [address] [place] [address] Dr. [place], [place] [phone] Cruise Agent: Elisabeth Worthy MD GFR,non Amer >60 Normal >60 [facility] Comment on above: Performed By: #### F TI, FE #### [address] [address] Cruise Agent: Otoniel Ash MD #### TSH, LIPR, CP, GLYHGB, CDP #### [address] [place] [address] Cruise Agent: Elisabeth Worthy MD Glucose [Mass/Vol] 99 mg/dL Normal 70-[address] [facility] Comment on above: Performed By: #### F TI, FE #### [address] [address] Cruise Agent: Otoniel Ash MD #### TSH, LIPR, CP, GLYHGB, CDP #### [address] [place], [place] [phone] Cruise Agent: Elisabeth Worthy MD Potassium [Moles/Vol] 4.1 mmol/L Normal 3.7-5.3 [facility] Comment on above: Performed By: #### F TI, FE #### [address] [address] Cruise Agent: Otoniel Ash MD #### TSH, LIPR, CP, GLYHGB, CDP #### [facility] [address] [place] [address] Dr. [place], [place] [phone] Cruise Agent: Elisabeth Worthy MD Protein [Mass/Vol] 7.7 g/dL Normal 6.4-8.[address] [facility] Comment on above: Performed By: #### F TI, FE #### [address] [address] Cruise Agent: Otoniel Ash MD #### TSH, LIPR, CP, GLYHGB, CDP #### [address] [place], [place] [phone] Cruise Agent: Elisabeth Worthy MD Sodium [Moles/Vol] 138 mmol/L Normal 135-[address] [facility] Comment on above: Performed By: #### F TI, FE #### [address] [address] Cruise Agent: Otoniel Ash MD #### TSH, LIPR, CP, GLYHGB, CDP #### [address] [place], [place] [phone] Cruise Agent: Elisabeth Worthy MD Staging: Normal [facility] Comment on above: Result Comment: Stag e 1: Some kidney damage normal GFR Stage 2: Mild kidney damage GFR 60-89 Stage 3: Moderate kidney damage GFR 30-59 Stage 4: Severe kidney damage GFR 15-29 Stage 5: Severe kidney damage GFR <15 ESRD - chronic treatment by dialysis or transplant Performed By: #### F TI, FE #### [facility] [address] [place], [place] [phone] Cruise Agent: Otoniel Ash MD #### TSH, LIPR, CP, GLYHGB, CDP #### [facility] [address] [place] [place] [address] Cruise Agent: Elisabeth Worthy MD Urea nitrogen [Mass/Vol] 17 mg/dL Normal 8- [facility] Comment on above: Performed By: #### F TI, FE #### [facility] [address] [place], [place] [phone] Cruise Agent: Otoniel Ash MD #### TSH, LIPR, CP, GLYHGB, CDP #### [facility] [address] [place] [address] Cruise Agent: Elisabeth Worthy MD Comprehensive Metabolic Pane [facility] 10-07-2019 Albumin [Mass/Vol] 4.5 g/dL 3.5 - 5.2 g/dL [place] Albumin/Globulin [Mass ratio] 1.4 {ratio} [place] ALP [Catalytic activity/Vol] 94 U/L 35 - 104 U/L [place] ALT [Catalytic activity/Vol] 10 U/L 5 - 33 U/L [place] Anion gap [Moles/Vol] 12 mmol/L 9 - 17 mmol/L [place] AST [Catalytic activity/Vol] 40 U/L High <32 [place] Bilirubin Ql (U) 0.27 mg/dL Low 0.3 - 1.2 mg/dL [place] Bun/Cre Ratio 22 High [place] Calcium [Mass/Vol] 10.0 mg/dL 8.6 - 10. 4 mg/dL [place] Chloride [Moles/Vol] 105 mmol/L 98 - 10 7 mmol/L [place] CO2 [Moles/Vol] 21 mmol/L 20 - 31 mmol/L [place] Creatinine [Mass/Vol] 0.79 mg/dL 0.5 - 0.9 mg/dL [place] GFR >60 >60 mL/min [place] GFR Non- >60 >60 mL/min [place] Glucose [Mass/Vol] 99 mg/dL 70 - 99 mg/dL [place] Potassium [Moles/Vol] 4.1 mmol/L 3.7 - 5.3 mmol/L [place] Protein [Mass/Vol] 7.7 g/dL 6.4 - 8.3 g/dL [place] Sodium [Moles/Vol] 138 mmol/L 135 - 144 mmol/L [place] Urea nitrogen [Mass/Vol] 17 mg/dL 8 - 23 mg/dL [place] Hemoglobin A1Con 10-07-2019 HbA1c (Bld) [Mass fraction] 5.3 % Normal 4.8-5.[address] [facility] Comment on above: Performed By: #### eJramie PAUL FE #### [address] [address] Cruise Agent: Otoniel Ash MD #### TSH, LIPR, CP, GLYHGB, CDP #### [facility] [address] [place] [address] Cruise Agent: Elisabeth Worthy MD HbA1c (Bld) [Mass fraction] 105 mg/dL Normal [facility] Comment on above: Result Comment: The ADA and AACC recommend providing the estimated average glucose result to permit better patient understanding of their HBA1c result. Performed By: #### F TI, FE #### [place] [address] [place], [place] [phone] Cruise Agent: Otoniel Ash MD #### TSH, LIPR, CP, GLYHGB, CDP #### [facility] [address] [place] [address] Cruise Agent: Elisabeth Worthy MD Glucose [Mass/Vol] 105 mg/dL [place] Comment on above: The ADA and AACC rec ommend providing the estimated average glucose result to permit better patient understanding of their HBA1c result. HbA1c (Bld) [Mass fraction] 5.3 % 4.8 - 5.9 % [place] Ironon 10-07-2019 Iron [Mass/Vol] 73 ug/dL 37 - 145 ug/dL [place] Lipid Panelon 10-07-2019 Cholesterol [Mass/Vol] 229 mg/dL High <200 [place] Comment on above: Cholesterol Guidelines: <200 Desirable 200-240 Borderline >240 Undesirable Cholesterol in HDL [Mass/Vol] 67 mg/dL >40 [place] Comment on above: HDL Guidelines: <40 Undesirable 40-59 Borderline >59 Desirable Cholesterol in LDL [Mass/Vol] 127 mg/dL 0 - 130 mg/dL [place] Comment on above: LDL Guidelines: <100 Desirable 100-129 Near to/above Desirable 130-159 Borderline >159 Undesirable Direct (measured) LDL and calculated LDL are not interchangeable tests. Cholesterol in VLDL [Mass/Vol] NOT REPORTED High 1 - 30 mg/dL [place] Cholesterol.total/Cho lesterol in HDL [Mass ratio] 3.4 {ratio} <5 [place] Triglyceride [Mass/Vol] 175 mg/dL High <150 [place] Comment on above: Triglyceride Guidelines: <150 Desirable 150-199 Borderline 200-499 High >499 Very high Based on AHA Guidelines for fasting triglyceride, December 2011. Lipid Profileon 10-07-2019 Cholesterol [Mass/Vol] 229 mg/dL High <[address] [facility] Comment on above: Result Comment: Cholesterol Guidelines: <200 Desirable 200-240 Borderline >240 Undesirable Performed By: #### F TI, FE #### [facility] [employer] [address] [place] [address] Cruise Agent: Otoniel Ash MD #### TSH, LIPR, CP, GLYHGB, CDP #### [facility] [address] [place], [place] [phone] Cruise Agent: Elisabeth Worthy MD Cholesterol in HDL [Mass/Vol] 67 mg/dL Normal >[address] [facility] Comment on above: Result Comment: HDL Guidelines: <40 Undesirable 40-59 Borderline >59 Desirable Performed By: #### F TI, FE #### [place] [address] [place] [address] Cruise Agent: Otoniel Ash MD #### TSH, LIPR, CP, GLYHGB, CDP #### [facility] [address] [place] [place] [address] Cruise Agent: Elisabeth Worthy MD Cholesterol in LDL [Mass/Vol] 127 mg/dL Normal 0-[address] [facility] Comment on above: Result Comment: LDL Guidelines: <100 Desirable 100-129 Near to/above Desirable 130-159 Borderline >159 Undesirable Direct (measured) LDL and calculated LDL are not interchangeable tests. Performed By: #### F TI, FE #### [address] [address] Cruise Agent: Otoniel Ash MD #### TSH, LIPR, CP, GLYHGB, CDP #### [address] [place] [phone] Cruise Agent: Elisabeth Worthy MD Cholesterol.total/Cho lesterol in HDL [Mass ratio] 3.4 {ratio} Normal <[address] [facility] Comment on above: Performed By: #### F TI, FE #### [place] [address] [place] [address] Cruise Agent: Otoniel Ash MD #### TSH, LIPR, CP, GLYHGB, CDP #### [facility] [address] [place], [place] [phone] Cruise Agent: Elisabeth Worthy MD Triglyceride [Mass/Vol] 175 mg/dL High <[address] [facility] Comment on above: Result Comment: Triglyceride Guidelines: <150 Desirable 150-199 Borderline 200-499 High >499 Very high Based on AHA Guidelines for fasting triglyceride, December 2011. Performed By: #### F TI, FE #### [facility] [employer] [address] [place], [place] [phone] Cruise Agent: Otoniel Ash MD #### TSH, LIPR, CP, GLYHGB, CDP #### [facility] [address] [place] [place] [address] Cruise Agent: Elisabeth Worthy MD Cholesterol in VLDL [Mass/Vol] NOT REPORTED Normal 04-[address] [facility] Comment on above: Performed By: #### F TI, FE #### [facility] [address] [place], [place] [phone] Cruise Agent: Otoniel Ash MD #### TSH, LIPR, CP, GLYHGB, CDP #### [facility] [address] [place] [address] Cruise Agent: Elisabeth Worthy MD Metabolic Panelon 10-07-2019 GFR/1.73 sq M predicted among non-blacks MDRD (S/P/Bld) [Vol rate/Area] [place] Comment on above: Stage 1: Some [...] body mass. Additional eGFR calculator available at: http://www.[employer]/multiple_crcl_2011.htm Otheron 10-07-2019 Interpretation and review of laboratory results Abnormal [place] TSH without Reflexon 020 TSH Qn 1.12 m[IU]/L [place] Thyroid Stim. Horm.on 2019 TSH Qn 1.12 m[IU]/L Normal 0.30-5.[address] [facility] Comment on above: Performed By: #### F TI, FE #### [facility] [address] [place] [address] Cruise Agent: Otoniel Ash MD #### TSH, LIPR, CP, GLYHGB, CDP #### [facility] [address] [place] [place] [address] Cruise Agent: Elisabeth Worthy MD Operative Reporton 8 Operative Report MR#: [id number] [facility] Pt. Name: Xena Ewing Room #: 0C Discharge Date: Birthdate: 1955 OPERATIVE REPORTDATE OF SURGERY: 03/17/2018SURGEON: Bart Holcomb M.D.CUSTOMER SALES DISTRIBUTOR: Carlton Galicia M.D.PREOPERATIVE DIAGNOSIS: Right recurrent de [...] Dict: 03/17/2018/10:00 Finn/Chad Andino Trans: 03/17/2018 11:55 [id number]: Anamika Valle M.D. [address], [facility] [id number] Normal [facility] POC GLUCOSE LABon 03-17-2018 Glucose mass conc 89 mg/dL Normal 70-100 [facility] Comment on above: Performed By: #### [id number] ####[facility] [place] [address], [facility] Vital Signs Date Time Vital Sign Value Performing Clinician Facility 10-23-2024 09:44-0400 Diastolic blood pressure 78 mm[Hg] Victoria Martin MD Work Phone: [facility] 10-23-2024 09:44-0400 Systolic blood pressure 138 mm[Hg] Victoria Martin MD Work Phone: [facility] 10-01-2024 09:29-0400 Body height 165.1 cm Semaj Brown DPM Work Phone: [facility] 10-01-2024 09:29-0400 Body mass index (BMI) [Ratio] 21.47 kg/m2 Semaj Brown DPM Work Phone: [facility] 10-01-2024 09:29-0400 Body weight 58.51 kg Semaj Brown DPM Work Phone: [facility] 10-01-2024 09:29-0400 Respiratory rate 18 /min Semaj Brown DPM Work Phone: [facility] 09-10-2024 09:18-0400 Body height 165.1 cm Semaj Brown DPM Work Phone: [facility] 09-10-2024 09:18-0400 Body mass index (BMI) [Ratio] 21.47 kg/m2 Semaj Brown DPM Work Phone: [facility] 09-10-2024 09:18-0400 Body weight 58.51 kg Semaj Brown DPM Work Phone: [facility] 09-10-2024 09:18-0400 Respiratory rate 18 /min Semaj Brown DPM Work Phone: [facility] 08-27-2024 08:42-0400 Body height 165.1 cm Semaj Brown DPM Work Phone: [facility] 08-27-2024 08:42-0400 Body mass index (BMI) [Ratio] 21.47 kg/m2 Semaj Brown DPM Work Phone: [facility] 08-27-2024 08:42-0400 Body weight 58.51 kg Semaj Brown DPM Work Phone: [facility] 08-27-2024 08:42-0400 Respiratory rate 18 /min Semaj Brown DPM Work Phone: [facility] 08-13-2024 08:41-0400 Body height 165.1 cm Semaj Brown DPM Work Phone: [facility] 08-13-2024 08:41-0400 Body mass index (BMI) [Ratio] 21.47 kg/m2 Semaj Brown DPM Work Phone: [facility] 08-13-2024 08:41-0400 Body weight 58.51 kg Semaj Brown DPM Work Phone: [facility] 08-13-2024 08:41-0400 Respiratory rate 18 /min Semaj Brown DPM Work Phone: [facility] 07-30-2024 09:19-0400 Body height 165.1 cm Semaj Brown DPM Work Phone: [facility] 07-30-2024 09:19-0400 Body mass index (BMI) [Ratio] 21.47 kg/m2 Semaj Brown DPM Work Phone: [facility] 07-30-2024 09:19-0400 Body weight 58.51 kg Semaj Brown DPM Work Phone: [facility] 07-30-2024 09:19-0400 Respiratory rate 16 /min Semaj Brown DPM Work Phone: [facility] 07-09-2024 08:48-0400 Body height 165.1 cm Semaj Brown DPM Work Phone: [facility] 07-09-2024 08:48-0400 Body mass index (BMI) [Ratio] 21.47 kg/m2 Semaj Brown DPM Work Phone: [facility] 07-09-2024 08:48-0400 Body weight 58.51 kg Semaj Brown DPM Work Phone: [facility] 07-09-2024 08:48-0400 Respiratory rate 18 /min Semaj Brown DPM Work Phone: [facility] 06-01-2024 11:12-0400 Body mass index (BMI) [Ratio] 21.6 kg/m2 Severo Patricio DO Work Phone: [facility] 06-01-2024 11:12-0400 Body weight 58.88 kg Severo Ptaricio DO Work Phone: [facility] 06-01-2024 11:12-0400 Diastolic blood pressure 74 mm[Hg] Severo Patricio DO Work Phone: [facility] 06-01-2024 11:12-0400 Systolic blood pressure 124 mm[Hg] Severo Patricio DO Work Phone: [facility] 05-28-2024 11:26-0400 Body height 165.1 cm Semaj Brown DPM Work Phone: [facility] 05-28-2024 11:26-0400 Body mass index (BMI) [Ratio] 21.47 kg/m2 Semaj Brown DPM Work Phone: [facility] 05-28-2024 11:26-0400 Body weight 58.51 kg Semaj Brown DPM Work Phone: [facility] 05-28-2024 11:26-0400 Respiratory rate 18 /min Semaj Brown DPM Work Phone: [facility] 04-09-2024 10:48-0500 Body height 165.1 cm Semaj Brown DPM Work Phone: [facility] 04-09-2024 10:48-0500 Body mass index (BMI) [Ratio] 21.47 kg/m2 Semaj Brown DPM Work Phone: [facility] 04-09-2024 10:48-0500 Body weight 58.51 kg Semaj Brown DPM Work Phone: [facility] 04-09-2024 10:48-0500 Respiratory rate 18 /min Semaj Sanchez DPM Work Phone: [facility] 03-19-2024 15:44-0500 Body height 165.1 cm Semaj Sanchez DPM Work Phone: [facility] 03-19-2024 15:44-0500 Body mass index (BMI) [Ratio] 21.47 kg/m2 Semaj Sanchez DPM Work Phone: [facility] 03-19-2024 15:44-0500 Body weight 58.51 kg Semaj Sanchez DPM Work Phone: [facility] 03-19-2024 15:44-0500 Respiratory rate 18 /min Semaj Sanchez DPM Work Phone: [facility] 02-05-2024 14:03-0500 Blood Pressure Location [facility] 02-05-2024 14:03-0500 Diastolic blood pressure 84 mm[Hg] [facility] 02-05-2024 14:03-0500 Heart rate 72 /min [facility] 02-05-2024 14:03-0500 Respiratory rate 16 /min [facility] 02-05-2024 14:03-0500 Systolic blood pressure 132 mm[Hg] [facility] 10-23-2022 11:13-0400 Body height 165.1 cm Claire West MD Work Phone: [facility] 10-23-2022 11:13-0400 Body weight 73.07 kg Claire West MD Work Phone: [facility] 10-23-2022 11:13-0400 Diastolic blood pressure 71 mm[Hg] Claire West MD Work Phone: [facility] 10-23-2022 11:130400 Heart rate 77 /min Claire West MD Work Phone: [facility] 10-23-2022 11:130400 Systolic blood pressure 125 mm[Hg] Claire West MD Work Phone: [facility] Encounters Encounter Date Encounter Type Care Provider Facility Start: 10-23-2024 End: 10-23-2024 Bamboo flowsvandana Martin MD [facility] Start: 10-23-2024 End: 10-23-2024 Bamboo daniel Martin MD [facility] Start: 10-23-2024 End: 10-23-2024 Patient encounter procedure Victoria Martin MD Work Phone: [facility] Comment on above: 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 Start: 10-23-2024 End: 10-23-2024 ambulatory VICTORIA MARTIN Not Available Start: 10-19-2024 End: 10-19-2024 ambulatory EVERETT SILVA Not Available Start: 10-19-2024 End: 10-19-2024 Patient encounter procedure Everett Silva BLADE GRINDER Work Phone: [facility] Comment on [...] 09-16-2024 Bamboo flowsvandana Amaya MD Work Phone: [facility] Start: 09-16-2024 End: 09-16-2024 Bamedmund Amaya MD Work Phone: [facility] Start: 09-10-2024 End: 09-10-2024 Bamboo flowsheet Semaj Sanchez DPM Work Phone: [facility] [facility] Start: 09-10-2024 End: 09-10-2024 Bamboo flowsheet Semaj Sanchez DPM Work Phone: [facility] Start: 09-10-2024 End: 09-10-2024 ambulatory SEMAJ SANCHEZ Not Available Start: 09-10-2024 End: 09-10-2024 Office outpatient visit 15 minutes Semaj Sanchez DPM Work Phone: [facility] Comment on above: Verruca [...] Start: 09-09-2024 End: 09-09-2024 ambulatory ANAMIKA VALLE Facility:[facility] Start: 08-27-2024 End: 08-27-2024 Bamboo [...] Start: 06-01-2024 End: 06-01-2024 Patient encounter procedure Esvero Patricio DO Work Phone: [facility] Work [...] Bamboo flowsheet Semaj Sanchez DPM Work Phone: [facility] Start: 05-28-2024 End: 05-28-2024 Bamboo flowsheet Semaj Sanchez DPM Work Phone: [facility] Start: 05-28-2024 End: 05-28-2024 ambulatory SEMAJ SANCHEZ Not Available Start: 05-28-2024 End: 05-28-2024 Patient encounter procedure Semaj Sanchez DPM Work Phone: [facility] Comment on above: 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 (Primary Dx); Verruca plantaris; Foot pain, right; Foot pain, left Start: 04-15-2024 End: 04-15-2024 ambulatory Rubén MANUEL Facility:[id number] Start: 04-09-2024 End: 04-09-2024 Bamboo flowsheet Semaj Sanchez DPM Work Phone: [facility] Start: 04-09-2024 End: 04-09-2024 Bamboo flowsheet Semaj Sanchez DPM Work Phone: [facility] Start: 04-09-2024 End: 04-09-2024 Patient encounter procedure Semaj Sanchez DPM Work Phone: [facility] Comment on above: Verruca plantaris (P rimary Dx); Foot pain, right; Foot pain, left Start: 04-09-2024 End: 04-09-2024 ambulatory SEMAJ SANCHEZ Not Available Start: 03-19-2024 End: 03-19-2024 Office outpatient visit 15 minutes Semaj Sanchez DPM Work Phone: [facility] Comment on above: Neoplasm [...] Start: 02-06-2024 End: 02-06-2024 ambulatory GEORGES BURNS Facility:[facility] Start: 02-06-2024 End: 02-06-[address] GEORGES BURNS [facility] Start: 02-05-2024 End: 02-05-2024 ambulatory Rubén MANUEL Facility:[facility] Start: 02-05-2024 End: 02-05-2024 Patient encounter procedure Rubén MANUEL [facility] Start: 12-27-2023 End: 12-27-2023 Patient encounter procedure MD Anamika Valle Work Phone: [facility] Work Phone: Start: 12-27-2023 End: 12-27-2023 ambulatory MD Anamika Valle Work Phone: [facility] Work Phone: Start: 12-17-2023 End: 12-17-2023 Bamboo flowsheet Shirin Escobar [employer] Work Phone: [facility] Start: 12-17-2023 End: 12-17-2023 Bamboo flowsheet Shirin Escobar [employer] Work Phone: [facility] Start: 12-17-2023 End: 12-17-2023 Office outpatient new 20 minutes Shirin A Felter [employer] Work Phone: [facility] Comment on above: Other nonthrombocyto penic purpura (CMS/HCC) (Primary Dx); Actinic keratosis Start: 12-17-2023 End: 12-17-2023 ambulatory SHIRIN A FELTER Not Available Start: 12-24-2022 End: 12-24-2022 ambulatory MD Anamika Valle Work Phone: [facility] Work Phone: Start: 12-24-2022 End: 12-24-2022 Patient encounter procedure MD [facility]amika Valle [facility] Work Phone: Start: 10-23-2022 End: 10-23-2022 Patient encounter procedure Claire West MD Work Phone: General Surgery Comment on above: Ventral hernia witho ut obstruction or gangrene (Primary Dx) Start: 04-19-2022 End: 04-19-2022 ambulatory DESTINI DOOLEY Facility:[facility] Start: 01-05-2022 End: 01-06-[address] ANAMIKA VALLE Facility:[facility] Start: 12-21-2021 End: 12-21-2021 ambulatory MD Anamika Valle Work Phone: [facility] Work Phone: Start: 12-21-2021 End: 12-21-2021 Patient encounter procedure MD Anamika Valle [facility] Start: 11-09-2021 End: 11-10-[address] ANAMIKA VALLE Facility:[facility] Start: 08-31-2021 End: 08-31-[address] ANAMIKA VALLE Facility:[facility] Start: 06-29-2021 End: 06-29-[address] ANAMIKA VALLE Facility:[facility] Start: 06-21-2021 End: 06-22-[address] ANAMIKA VALLE Facility:[facility] Start: 06-08-2021 End: 06-09-[address] ANAMIKA VALLE Facility: Start: 10-13-2019 End: 10-14-2019 Patient encounter procedure [facility] Start: 10-13-2019 End: 10-13-2019 Subsequent hospital visit by physician Anamika Valle [facility] Start: 10-07-2019 End: 10-08-2019 Patient encounter procedure [facility] Start: 10-07-2019 End: 10-07-2019 Subsequent hospital visit by physician [facility] Drawing Room [facility] Comment on above: Arrived Start: 03-17-2018 End: 03-18-2018 Patient encounter procedure GIOVANI HOLCOMB Facility:[facility] Start: 02-14-2018 End: 02-15-2018 Patient encounter procedure DEFAULT PHYSICIAN Facility:[facility] Procedures Date Procedure Procedure Detail Performing Clinician Start: 10-23-2024 SKIN REPAIR Victoria manuel MD Work Phone: Start: 10-23-2024 MOHS SURGERY Victoria manuel MD Work Phone: Start: 09-16-2024 SKIN / NAIL BIOPSY Varinder Amaya MD Work Phone: Start: 12-27-2023 Screening mammograph y of bilateral breasts MD Anamika Valle Work Phone: Start: 12-17-2023 CRYOTHERAPY SKIN LESION Shirin A Felter [employer] Work Phone: Start: 12-24-2022 Screening mammograph y of bilateral breasts MD Anamika Valle Work Phone: Start: 04-19-2022 Mammography Shirin Fe lter [employer] Work Phone: Start: 12-21-2021 Screening mammograph y [...] RSV Vaccine (1 - 1-dose 75+ series) [facility] Start: 06-01-2028 DTaP/Tdap/Td vaccine (2 - Td) DTaP/Tdap/Td vaccine (2 - Td) [facility] [place] Start: 06-01-2028 Urine microalbumin profile DTaP,Tdap,Td Vaccine (2 - Td or Tdap) [facility] Start: 06-03-2025 End: 06-03-2025 Patient encounter procedure [facility] Start: 11-16-2024 Influenza vaccination [facility] Start: 11-06-2024 End: 11-06-2024 Patient encounter procedure 11/06/2024 10:30 AM EDT Office Visit [facility] [address] [place] [address] Victoira Martin MD [address] [place] [address] [facility] Start: 10-23-2024 End: 10-23-2024 Patient encounter procedure [facility] Comment on above: Arrived Start: 10-06-2024 Lipid panel [facility] Start: 10-01-2024 End: 10-01-2024 Patient encounter procedure 10/01/2024 9:10 AM EDT Office Visit [facility] [address] [place] [address] Semaj Sanchze DPM [address] [facility] [address] [place] [address] [facility] Start: 09-16-2024 End: 09-16-2024 Patient encounter procedure 09/16/2024 2:35 PM EDT Office Visit [facility] [address] [place] [address] Marianna Amaya MD [address] [place] [address] Arrived [facility] Comment on above: Arrived Start: 08-27-2024 End: 08-27-2024 Patient encounter procedure 08/27/2024 8:50 AM EDT Office Visit [facility] [address] [facility] [address] [place] [address] Semaj Sanchez, DPM [address] [address] Neoplasm of uncertain behavior of skin (Primary Dx) [facility] Comment on above: Neoplasm of uncertain behavior of skin ( Primary Dx) Start: 08-13-2024 End: 08-13-2024 Patient encounter procedure 08/13/2024 8:40 AM EDT Office Visit [facility] [address] [facility] [address] [place] [address] Semaj Sanchez, DPM [address] [address] Neoplasm of uncertain behavior of skin (Primary Dx) [facility] Comment on above: Neoplasm of uncertain behavior of skin ( Primary Dx) Start: 08-06-2024 End: 08-06-2024 Patient encounter procedure 08/06/2024 11:20 AM EDT Procedure Visit [facility] [address] [facility] [address] [place] [address] Semaj Sanchez, DPM [address] [address] [facility] Start: 07-30-2024 End: 07-30-2024 Patient encounter procedure 07/30/2024 9:30 AM EDT Office Visit [facility] [address] [facility] [address] [place] [address] Semaj Sanchez, DPM [address] [address] Verruca plantaris (Primary Dx); Foot pain, right; Foot pain, left [facility] Comment on above: Verruca plantaris (Primary Dx); Foot pain, right; Foot pain, left Start: 07-09-2024 End: 07-09-2024 Patient encounter procedure 07/09/2024 8:50 AM EDT Office Visit [facility] [address] [facility] [address] [place] [phone] Semaj Sanchez DPM [address] [address] Arrived [facility] Comment on above: Arrived Start: 06-11-2024 End: 06-11-2024 Patient encounter procedure 06/11/2024 11:30 AM EDT Office Visit [facility] [address] [facility] [address] [place] [id number] Semaj Sanchez DPM [address] [address] [facility] Start: 06-01-2024 End: 06-01-2025 DXA Skeletal system Views for bone density DEXA bone density Imaging Routine Postmenopausal state Expected: 06/01/2024 (Approximate), Expires: 06/01/2025 [facility] Comment on above: Expected: 06/01/2024 (Approximate), Expi res: 06/01/2025 Start: 06-01-2024 End: 08-01-2025 MG Breast - bilateral Screening Bilateral screening mammogram Imaging Routine Breast cancer screening by mammogram Expected: 06/01/2024, Expires: 08/01/2025 [facility] Work Phone: Comment on above: Expected: 06/01/2024, Expires: Start: 06-01-2024 End: 06-01-2024 Patient encounter procedure [facility] Comment on above: Arrived Start: 05-28-2024 End: 05-28-2024 Patient encounter procedure 05/28/2024 11:00 AM EDT Procedure Visit [facility] [address] [facility] [address] [place] [phone] Semaj Sanchez DPM [address] [address] [facility] Start: 04-09-2024 End: 04-09-2024 Patient encounter procedure 04/09/2024 11:00 AM EST Office Visit [facility] [address] [facility] [address] [place] [address] Semaj Sanchez DPM [address] [address] Verruca plantaris (Primary Dx); Foot pain, right; Foot pain, left [facility] Comment on above: Verruca plantaris (Primary Dx); Foot pain, right; Foot pain, left Start: 03-19-2024 End: 03-19-2024 Patient encounter procedure 03/19/2024 3:50 PM EST Office Visit [facility] [address] [facility] [address] [place] [address] Semaj Sanchez DPM [address] [address] [facility] Start: 03-18-2024 Advance Directive Discussion Advance Directive Discussion [facility] Start: 03-18-2024 Medicare Advantage Annual Wellness Visit Medicare Advantage Annual Wellness Visit [facility] Start: 12-17-2023 End: 12-17-2023 Patient encounter procedure 12/17/2023 11:05 AM EDT Office Visit [facility] [address] [place] [address] Shirin Escobar, [employer] [address] [place] [address] Arrived [facility] Comment on above: Arrived Start: 11-17-2023 Covid-19 Vaccine () Covid-19 Vaccine () [facility] Start: 11-17-2023 Influenza vaccination Influenza Vaccine (#1) [facility] Start: 04-19-2023 Screening for malignant neoplasm of breast [facility] Start: 11-16-2022 Influenza vaccination INFLUENZA (#1) [facility] Start: 10-06-2022 Diabetes Screening Diabetes Screening [facility] Start: 04-21-2022 COVID-19 VACCINE (5 - Pfizer series) COVID-19 VACCINE (5 - Pfizer series) [facility] Start: 03-18-2022 ADVANCE DIRECTIVE DISCUSSION ADVANCE DIRECTIVE DISCUSSION [facility] Start: 03-18-2022 DEPRESSION ASSESSMENT DEPRESSION ASSESSMENT [facility] Start: 2021 BONE DENSITY BONE DENSITY [facility] Start: 2021 Pneumococcal Vaccine: 65+ Years (2 of 2 - PCV) Pneumococcal Vaccine: 65+ Years (2 of 2 - PCV) [facility] Start: 2021 Screening for osteoporosis Bone Density Screening [facility] Start: 11-17-2019 Influenza vaccination Flu vaccine (#1) [place], [place] Start: 06-27-2016 Pneumococcal Vaccine: 50+ (2 of 2 - PCV) Pneumococcal Vaccine: 50+ (2 of 2 - PCV) [facility] Start: 06-27-2016 Pneumococcal Vaccine: 65+ Years (2 of 2 - PCV) Pneumococcal Vaccine: 65+ Years (2 of 2 - PCV) [facility] Start: 2006 Influenza vaccination LUNG CANCER SCREENING [facility] Start: 2006 Screening for malignant neoplasm of breast Breast cancer screen [place], [place] Start: 2006 Screening for malignant neoplasm of colon Colon cancer screen colonoscopy [place], [place] Start: 2006 Screening for malignant neoplasm of lung Lung Cancer Screening [facility] Start: 2006 Shingles Vaccine (1 of 2) Shingles Vaccine (1 of 2) [place], [place] Start: 2006 SHINGRIX VACCINE (1 of 2) SHINGRIX VACCINE (1 of 2) [facility] Start: 2001 COLOGUARD (FIT-DNA) COLOGUARD (FIT-DNA) [facility] Start: 2001 Colonoscopy COLONOSCOPY [facility] Start: 2001 COLORECTAL CANCER SCREENING COLORECTAL CANCER SCREENING [facility] Start: [address] COLONOGRAPHY [facility] Start: 2001 DIABETES SCREEN DIABETES SCREEN [facility] Start: 2001 FECAL OCCULT BLOOD FECAL OCCULT BLOOD [facility] Start: 2001 LIPID SCREEN LIPID SCREEN [facility] Start: 2001 Screening for malignant neoplasm of colon [facility] Start: 2001 SIGMOIDOSCOPY SIGMOIDOSCOPY [facility] Start: 1996 Lipid panel Lipid screen [place], [place] Start: 1996 Mammography MAMMOGRAM [facility] Start: 1996 Screening for malignant neoplasm of breast Mammogram Screening [facility] Start: 1977 Screening for malignant neoplasm of cervix Cervical cancer screen [place], [place] Start: 12-12-1975 Urine microalbumin profile DTAP,TDAP,TD (1 - Tdap) [facility] Start: 1974 Anxiety Screening Anxiety Screening [facility] Start: 1974 Depression Screening Depression Screening [facility] Start: 1974 HEPATITIS C SCREENING HEPATITIS C SCREENING [facility] Start: 1974 Hepatitis C screening Hepatitis C Screening [facility] Start: 1974 HIV SCREENING HIV SCREENING [facility] Start: 12-12-1971 HIV screening HIV screen [place], [place] Start: 1962 PNEUMOCOCCAL: 65+ (1 - PCV) PNEUMOCOCCAL: 65+ (1 - PCV) [facility] Start: 1956 Hepatitis C screening Hepatitis C screen [place], [place] Start: 1956 Screening for malignant neoplasm of colon [facility] Dermatopathology exam Dermatopat hology exam Pathology and Cytology Timed Neoplasm of unspecified behavior of bone, soft tissue, and skin Release Upon Ordering for 1 Occurrences starting 09/16/2024 [facility] Work Phone: Comment on above: Release Upon Ordering for 1 Occurrences starting 09/16/2024 THIN PREP TIS PAP AN D HR HPV DNA THIN PREP TIS PAP AND HR HPV DNA Pathology and Cytology Routine Well woman exam with routine gynecological exam Ordered: 06/01/2024 [facility] Comment on above: Ordered: 06/01/2024 End: 09-10-2025 [facility]iology Routine Tinnitus, unspecified laterality Mixed conductive and sensorineural hearing loss of left ear with restricted hearing of right ear 1 Occurrences starting 09/09/2024 until 09/10/2025 [facility] Work Phone: Comment on above: 1 Occurrences starting 09/09/2024 until 09/10/2025 Immunizations Immunization Date Immunization Notes Care Provider Angie stacy 12-19-2021 SARS-CoV-2 (COVID-19 ) [id number] Rubén NILL [facility] 04-04-2021 SARS-CoV-2 (COVID-19 ) mRNA BNT-162b2 vax Rubén NILL [facility] 12-16-2020 SARS-CoV-2 (COVID-19 ) mRNA BNT-162b2 vax Rubén NILL [facility] 11-28-2020 SARS-CoV-2 (COVID-19 ) mRNA BNT-162b2 vax Rubén NILL [facility] 06-05-2018 influenza virus vaccine, unspecified formulation Shirin Durbinreese [facility] Work Phone: [facility] 06-01-2018 tetanus toxoid, redu tu diphtheria toxoid, and acellular pertussis vaccine, adsorbed [facility] Room [place] Payers Date Payer Category Payer Self-pay [id number] 2023 Medicare (Managed Care) [id number]. [id number] 2023 Medicare [id number] 2022 Medicare [id number] 2019 Unknown [id number] 2019 Unknown [employer] - EXCHANGE [id number] 2019-Present [phone] [address] [place] [address] [id number] 1959 Medicare [id number] 1959 Medicare [id number] 1959 Private Health Insurance [facility] [id number] 1956 Unknown [id number] 2.16.840.1.809137.3.579.2.6 47 1956 Unknown [id number] 2.16.840.1.773308.3.579.2.6 47 1956 Unknown [id number] 2.16.840.1.769251.3.579.2.1 73 1956 Unknown [id number] 2.16.840.1.975118.3.579.2.1 73 1956 Unknown [id number] 2.16.840.1.706712.3.579.2.5 93 1956 Unknown [id number] 2.16.840.1.501377.3.579.2.5 93 1956 Unknown [id number] 2.16.840.1.893096.3.579.2.5 93 1956 Unknown [id number] 2.16.840.1.907235.3.579.2.5 93 1956 Unknown [id number] 2.16.840.1.188495.3.579.2.5 93 1956 Unknown [id number] 2.16.840.1.768173.3.579.2.5 93 1956 Unknown [id number] 2.16.840.1.812393.3.579.2.5 93 1956 Unknown [id number] 2.16.840.1.785517.3.579.2.7 27 1956 Unknown [id number] 2.16.840.1.482765.3.579.2.7 1956 Unknown [id number] 2.16.840.1.065422.3.579.2.7 27 1956 Unknown [id number] 2.16.840.1.105877.3.579.2.1 259 1956 Unknown [id number] 2.16.840.1.804685.3.579.2.1 259 1956 Unknown [id number] 2.16.840.1.413234.3.579.2.1 259 1956 Unknown [id number] 2.16.840.1.341067.3.579.2.1 259 1956 Unknown [id number] 2.16.840.1.429282.3.579.2.1 259 1956 Unknown [id number] 2.16.840.1.317328.3.579.2.1 1956 Unknown [id number] 2.16.840.1.658051.3.579.2.1 259 1956 Unknown [id number] 2.16.840.1.233677.3.579.2.1 259 1956 Unknown [id number] 2.16.840.1.259160.3.579.2.1 259 1956 Unknown [id number] 2.16.840.1.344613.3.579.2.1 259 1956 Unknown [id number] 2.16.840.1.909242.3.579.2.1 259 1956 Unknown [id number] 2.16.840.1.622799.3.579.2.1 259 1956 Unknown [id number] 2.16.840.1.216898.3.579.2.1 259 1956 Unknown [id number] 2.16.840.1.073738.3.579.2.1 259 Medicare Medicare [id number] Unknown [id number] Unknown Unknown HCAP/HFA/FAP Active [id number] Unknown [id number] 2.16.840.1.872725.3.579.2.5 31 Social History Date Type Detail Facility Start: 05-31-2018 End: 02-05-2024 Tobacco smoking status NHIS [facility] Start: 05-31-2018 Alcohol intake Ex-drinker (finding) [place], [place] Start: 1955 Sex Assigned At Not on file M [place], [place] Exposure to SARS-CoV -2 (event) Not sure [place], [place] Start: 1955 Sex Assigned At Female F [facility] Start: 10-23-2022 Tobacco smoking stat us NHIS Smokes tobacco daily [facility] History of tobacco use Cigarette Smoker C [facility] Start: 10-23-2022 End: 10-23-2024 Cigarettes smoked current (pack per day) - Reported 1 [facility] Start: 10-23-2022 End: 03-19-2024 Tobacco use and exposure User of smokeless tobacco [facility] Start: 10-23-2022 End: 10-23-2024 Alcohol intake Lifetime non-drinker (finding) [facility] Start: 10-23-2022 End: 10-23-2024 [facility] Start: 10-23-2022 Tobacco Comment Vape Jose Armando[facility] Start: 09-21-2022 End: 03-19-2024 Tobacco smoking status NHIS Never smoked tobacco [facility] Start: 04-27-2023 Alcohol Comment Caffine intake : 2-3 cups per day, coffee; tea [facility] National Score (1-10 0), lower number is lower risk 94 [facility] Functional Status Date Assessment Result Facility 02-05-2024 Functional Status N/A [facility] [place] Clinical Notes 08-31-2021 to 10-23-2024 Victoria Martin MD - 10/23/2024 9:00 AM EDTEverett Silva NP - 10/19/2024 9:30 AM LEAHTSemja Sanchez DPM - 10/01/2024 9:10 AM Lilli [...] CARCINOMA (BCC) OF UPPER BACK Mid Back [place] macule at biopsy site Re-measured today at 1.3 x 1.0 cm Mohs surgery Consent obtained: written (The rationale for Mohs as well as the risks, benefits, and alternatives. The risks of infection, scarring, bleeding, prolonged wound healing, incomplete removal, allergy to anesthesia or meds, nerve injury, and recurrence were addressed.) [place] Protocol: Procedure explained and questions answered to patient or proxy's satisfaction: Yes Test results available and properly labeled: Yes Pathology report reviewed: Yes Photo or diagram used for site identification: Yes Site/side marked: Yes Anesthesia: Anesthesia method: local infiltration Local anesthetic: lidocaine 1% WITH epi and sodium bicarbonate Procedure Details: Biopsy accession number: [id number] Biopsy lab: [facility] Date of biopsy: 09/16/2024 Frozen section biopsy [...] 14 day S/R documented in this encounter [facility] 10-19-2024 History of Present illness Narrative Reason for Appointment: Patient ID: Xena Ewing is a 68 y.o. female who presents for No chief complaint on file. Patient presents today via telephone call for a telehealth appointment. Patients Phone #: [phone] (mobile) Date: 10/19/2024 Time: 10:14 AM of [...] Everett Silva NP documented in this encounter [facility] 10-01-2024 History of Present illness Narrative Patient: Xena wEing : 1955 PCP: Anamika Valle MD SUBJECTIVE [...] Semaj Sanchez DPM documented in this encounter [facility] 09-16-2024 History of Present illness Narrative Images [...] BONE, SOFT TISSUE, AND SKIN Mid Back [place] papule Lesion biopsy Type of biopsy: tangential [...] any new/changing lesions documented in this encounter [facility] 09-10-2024 History of Present illness Narrative Patient: [...] Semaj Sanchez DPM documented in this encounter [facility] 09-09-2024 Note HNO ID: [id number] Author: ALEJANDRA WESTON MD Service: ? Author Type: Physician Type: Progress Notes Filed: 09/09/2024 16:46 Note Text: SECTION OF OTOLOGY, NEUROTOLOGY AND LATERAL SKULL BASE SURGERY Department of Otolaryngology - Head and Neck Surgery [facility] September 09, 2024 09/09/2024 Xena Ewing is [...] Tobacco Use: High Risk (08/27/2024) Received from [facility] Patient History Smoking Tobacco Use: Never Smokeless [...] side and sensorineu (more content not included)... [facility] 09-09-2024 History of Present illness Narrative Images from the original note were not included. SECTION OF OTOLOGY, NEUROTOLOGY AND LATERAL SKULL BASE SURGERY Department of Otolaryngology - Head and Neck Surgery [facility] Surgical [place], [facility] September 09, 2024 09/09/2024 Xena Ewing is [...] Tobacco Use: High Risk (08/27/2024) Received from [facility] Patient History Smoking Tobacco Use: Never Smokeless [...] [facility] for comprehensive evaluation and treatment plan. Noted [...] MD Otology/Neurotology/Lateral Skull-Base Surgery Head and Neck [place] [facility] Medical Decision Making: Problems: Moderate: New problem with uncertain prognosis Data: Unique source(s) for external note(s) reviewed: 1 Unique test result(s) reviewed: 1 Unique test(s) ordered: 1 Risk: Minimal: Minimal risk from testing/treatment Medical Decision Making Level: 4 - Moderate documented in this encounter [facility] 08-27-2024 History of Present illness [...] Semaj Sanchez DPM documented in this encounter [facility] 08-13-2024 History of Present illness Narrative Patient: [...] care. Right foot lesion specimen sent to [facility] for pathology report Semaj Sanchez DPM documented in this encounter [facility] 07-09-2024 History of Present illness Narrative Patient: [...] Semaj Sanchez DPM documented in this encounter [facility] 06-01-2024 History of Present illness Narrative Reason [...] nursing note reviewed. Exam conducted with a cage fighter present. Vitals: Estimated body mass index is [...] Severo Curry DO documented in this encounter [facility] 05-28-2024 History of Present illness Narrative Patient: [...] Semaj Sanchez DPM documented in this encounter [facility] 04-09-2024 History of Present illness Narrative Patient: [...] Semaj Sanchez DPM documented in this encounter [facility] 03-19-2024 History of Present illness Narrative Patient: [...] pathological diagnosis of specimen. Patient may take cxmb-era-pachvtx NSAID p.r.n. for pain Application of salinocaine [...] Semaj Sanchez DPM documented in this encounter [facility] 02-06-2024 Evaluation + Plan note Diagnostic Tests Pendingvon Willebrand Factor (vWF) Ag 02/06/24Lupus Anticoagulant 02/06/24vWF Activity 02/06/24 [facility] 02-05-2024 Note General Surgery Offi [...] Father. Immunizations Vaccine Date Status SARS-CoV-2 (COVID-19) [id number] 12/19/2021 Recorded SARS-CoV-2 ( (more content not included)... [facility] Comment on above: Result Comment: Elec [...] limited to risks of scarring, darker or benefits processor pigmentary changes, recurrence, incomplete removal and infection. [...] any new/changing lesions documented in this encounter [facility] 10-23-2022 History of Present illness Narrative GENERAL [...] Bariatric Surgery cc: Referring provider Anamika Valle [address] [place] [phone] Medical Decision Making: Problems: Low: Stable chronic illness Data: Independent interpretation of test from other physician/QHCP Medical Decision Making Level: 3 - Low documented in this encounter [facility] 08-31-2021 Note OPERATIVE NOTE OPERATION DATE: 08/31/2021 PREOPERATIVE DIAGNOSIS: Acute appendicitis. POSTOPERATIVE DIAGNOSIS: Acute appendicitis. PROCEDURE PERFORMED: Laparoscopic appendectomy. SURGEON: Elisabeth Rehman M.D. 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 [facility] Signed and Approved by: DR ELISABETH REHMAN . 09/15/2021 06:33:00 [facility] Evaluation + Plan note No data available for this section [facility] [place] Evaluation note No assessment inform ation available [facility] Work Phone: Evaluation note Diagnosis Ventral hernia without obstruction or gangrene- Primary Ventral hernia, unspecified, without mention of obstruction or gangrene [facility] Other nonthrombocytopenic purpura (CMS/HCC)- Primary Actinic keratosis documented in this encounter [facility]* Diagnosis Neoplasm of uncertain [...] unspecified laterality- Primary [facility] Neoplasm of uncertain behavior of skin- Primary Verruca plantaris Plantar wart Foot pain, left Pain in soft tissues of limb [facility] Diagnosis 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 Tinnitus, unspecified laterality Temporomandibular joint disorder Temporomandibular joint disorders, unspecified [facility] Verruca plantaris- Primary [...] follow-up [facility]aj Sanchez DPM [facility] No data available for this section [facility] Progress note No data available for this section [facility] Summary Purpose Family History No Family [...] FoundDocuments on File Type Date Recorded 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 Expl anation Advance Directives and Living Will Power of Geodetic Engineer Advance Directive Response Recorded Date/ Time Advance Directives No June 06, 2 018 3:52pm Chief Complaint and Reason for Visit Chief Complaint Screening Additional Source Comments INFORMATION SOURCE (unrecogn ized section and content) DATE CREATED AUTHOR 03/21/2018 [facility] DATE CREATED AUTHOR AUTHOR'S ORGANIZ ATION 10/14/2019 [facility] DATE CREATED AUTHOR AUTHOR'S ORGANIZ ATION 04/27/2022 [facility] DATE CREATED AUTHOR AUTHOR'S ORGANIZ ATION 01/03/2024 [facility] DATE CREATED AUTHOR AUTHOR'S ORGANIZ ATION 02/08/2024 [facility] DATE CREATED AUTHOR AUTHOR'S ORGANIZ ATION 02/13/2024 [facility] DATE CREATED AUTHOR AUTHOR'S ORGANIZ ATION 04/19/2024 [facility] DATE CREATED AUTHOR AUTHOR'S ORGANIZ ATION 09/10/2024 [facility] DATE CREATED AUTHOR AUTHOR'S ORGANIZ ATION 10/25/2024 [facility] Care Teams (unrecognized sec tion and content) Team Status: Active Member Role Status Dates Anamika Valle MD Primary Care Provider Active Team Status: Inactive Member Role Status Dates Anamika Valle MD Primary Care Provider Active Referral Self Attending Provider Active Inclusion Special Education Teacher Relationship Specialty Start Date End Date Anamika Valle MD PCP - General 10/24/04 Anamika Valle MD [address] [place] [address] Referring Family Medicine 10/05/22 Inclusion Special Education Teacher Relationship Specialty Start Date End Date Anamika Valle MD [address] [place] [address] PCP - General Family Medicine 09/21/22 Inclusion Special Education Teacher Relationship Specialty Start Date End Date Anamika Valle MD [address] [place] [address] PCP - General Family Medicine 09/21/22 Team Status: Inactive Member Role Status Dates Anamika Valle MD Primary Care Provide r, Referring Provider Active Start: December 27, 2023 End: December 27, 2023 Referral Self Attending Provider Active Start: O ctober 2023 End: December 27, 2023 Inclusion Special Education Teacher Relationship Specialty Start Date End Date Anamika Valle MD [address] [facility] [address] PCP - General Family Medicine 09/21/22 Inclusion Special Education Teacher Relationship Specialty Start Date End Date Anamika Valle MD [address] [facility] [address] PCP - General Family Medicine 09/21/22 Inclusion Special Education Teacher Relationship Specialty Start Date End Date Anamika Valle MD [address] [facility], [phone] PCP - General Family Medicine 09/21/22 Inclusion Special Education Teacher Relationship Specialty Start Date End Date Anamika Valle MD [address] [facility], [phone] PCP - General Family Medicine 09/21/22 Inclusion Special Education Teacher Relationship Specialty Start Date End Date Anamika Valle MD [address] [facility], [id number] PCP - General Family Medicine 09/21/22 Inclusion Special Education Teacher Relationship Specialty Start Date End Date Anamika Valle MD [address] [facility] [address] PCP - General Family Medicine 09/21/22 Inclusion Special Education Teacher Relationship Specialty Start Date End Date Anamika Valle MD [address] [facility] [address] PCP - General Family Medicine 09/21/22 Inclusion Special Education Teacher Relationship Specialty Start Date End Date Anamika Valle MD [address] [facility] [address] PCP - General Family Medicine 09/21/22 Inclusion Special Education Teacher Relationship Specialty Start Date End Date Anamika Valle MD PCP - General 10/24/04 Anamika Valle MD [address] [place] [address] Referring Family Medicine 10/05/22 Inclusion Special Education Teacher Relationship Specialty Start Date End Date Anamika Valle MD PCP - General 10/24/04 Anamika Valle MD [address] [place] [address] Referring Family Medicine 10/05/22 Inclusion Special Education Teacher Relationship Specialty Start Date End Date Anamika Valle MD [address] [place] [address] PCP - General Family Medicine 09/21/22 Goals [...] or prosecute any alcohol or drug abuse patient.[facility] the event this information is protected by the Federal Confidentiality of Alcohol and Drug Abuse Patient Records regulations: The Federal rules restrict any use of the information to criminally investigate or prosecute any alcohol or drug abuse patient.[facility] Hospital[facility] the event this information is protected by the Federal Confidentiality of Alcohol and Drug Abuse Patient Records regulations: The Federal rules restrict any use of the information to criminally investigate or prosecute any alcohol or drug abuse patient.[facility] Reason for Visit (unrecogniz ed [...] unspecified laterality Procedures CONSULT TO ENT OFFICE/OUTPATIENT [facility]3] 60 MINUTES Anamika Valle MD [address] [place] [address] Phone: tel: fax: Referral ID Status Reason Start Date Expiration Date V isits Requested Visits Authorized [id number] Closed PCP Requested Referral 08/14/2024 08/14/2025 1 [...] BE BASED ON THE PRIMARY CLINICAL RECORDS. [facility] [employer], [facility]. provides no warranty or guarantee of the accuracy or completeness of information in this document.
== END 2024-11-04 10:42 | disposition home or self-care (01) ==
LOC: RAD 10:42
PROVIDERS: PCP Family Medicine; Visit Provider Family Medicine
DX: M51.9 Unspecified thoracic, thoracolumbar and lumbosacral intervertebral disc disorder (principal); M51.369 Other intervertebral disc degeneration, lumbar region without mention of lumbar back pain or lower extremity pain
CPT/HCPCS: 72110

== ENCOUNTER 2024-11-05 10:28 | Outpatient (OUT) | payer MEDICARE, SELFPAY ==
--- NOTE | 2024-11-05 10:31 | US_ITS ---
The [address] [address] Patient Name: GILLIAN HERMOSILLO MRN: [id number] date: 1955 Sex: F Assigned Patient Location: US Current Patient Location: US Accession/Order Number: [id number] Exam Date: 11/05/2024 13:18 Report Date: 11/05/2024 13:21 At the request of: ANAMIKA BENAVIDES MD Procedure: US thyroid Thyroid Ultrasound HISTORY: Thyroid nodules identified with prior CT examination COMPARISON: 10/26/2024 The RIGHT lobe measures 5.1 x 3.3 x 2.7cm. LEFT lobe measures 4.7 x 1.7 x 1.7 cm. Isthmus has an AP dimension of 0.3cm. 3.8 cm right mid solid hyperechoic tolerated wide nodule identified. 6 mm left mid cystic nodule identified.. No microcalcifications identified. Symmetric blood flow of the thyroid gland identified. US/US thyroid IMPRESSION: 3.8 cm right mid solid nodule. Fine-needle aspiration recommended. Impression dictated by: King Malin M.D. 11/05/2024 1:21 PM Dictation Location: Q ChipNEW WAYSIDE EMERGENCY HOSPITALInsync Electronically authenticated by: [id number] Y Date: 11/05/2024 13:21
--- OUTSIDE RECORDS SUMMARY | 2024-11-05 10:34 | XMS_ITS | CCD ---
Author Organization [facility] Care Team Providers Care Shredded Filler Hopper Feeder Name Role Phone PHYSICIAN, DEFAULT Unavailable Unavailable [...] Care Unavailable Anamika Valle Primary Care Provider [phone] MD Anamika Valle Primary Care Provider Self, [...] MAKAYLA, DR WILLSON Primary Care Unavailable DR AANMIKA VALLE Consulting Unavailable MARQUES, DR ENIO Vasquez [...] 05 Nausea Only, Gastrointestinal irritation (disorder) [facility] (1 source) Etodolac Drug Allergy 03-21-19 17 [facility] (2 sources) no latex allergy [Other] Propensity to adverse reactions 11-30-19 05 [facility] (20 sources) Etodolac Allergy to substance 09-22-19 23 [facility] (20 sources) Sulfonamides (Antibiotic) Drug Allergy 07-14-19 22 Hives [facility] (20 sources) Other Propensity to adverse reactions 11-30-19 05 [facility] (1 source) Unable to Assess Drug allergy (disorder) 10-07-19 19 [facility]ository (20 sources) Ciprofloxacin; Translations: [ciprofloxacin] Drug Allergy 06-02-19 25 Patient reported problems (finding) [facility] Medications Current Medications Medication Drug Class(es) [...] AT BEDTIME NEEDED FOR ANXIETY estrogens, conjugated (long-term) 0.625 mg oral tablet (3 sources) Estrogen [...] 22 g 10/23/2024 Active Start: 10-23-2024 mupirocin (Raiela troban) 2 % ointment Indications: Basal cell [...] Start: 01-21-2023 take 2 tablets by mo [facility] at bedtime tiZANidine (Zanaflex) 4 MG tablet [...] meds, nerve injury, and recurrence were addressed.) [place] Protocol: Procedure explained and questions answered to patient or proxy's satisfaction: Yes Test results available and properly labeled: Yes Pathology report reviewed: Yes Photo or diagram used for site identification: Yes Site/side marked: Yes Anesthesia: Anesthesia method: local infiltration Local anesthetic: lidocaine 1% WITH epi and sodium bicarbonate Procedure Details: Biopsy accession number: [id number] Biopsy lab: [facility] Date of biopsy: 09/16/2024 Frozen section biopsy [...] given on the day of surgery?: No [facility] Skin repairon 10-23-2024 Complexity: Intermediate Final length [...] uncontrollable bleeding, or complications. Dressing type: bandage [facility] No Panel Informationon 09-16 Type of biopsy: [...] Photo taken Amount of lidocaine used: 1cc [facility] No Panel InformationOrdered By: Aydee Heart on 09-16-2024 [facility] CNOVon 09-09-2024 CNOV Office Visit (OTOLBD ) XENA EWING ([id number]) 1955 F [facility] Date Time Provider Department 09/09/24 12:00 PM ALEJANDRA WESTON OTOLBD During your visit today, we recorded the following information about you: Alejandra Weston MD 09/09/2024 4:46 PM Signed SECTION OF OTOLOGY, NEUROTOLOGY AND LATERAL SKULL BASE SURGERY Department of Otolaryngology - Head and Neck Surgery [facility] [place] September 09, 2024 09/09/2024 Xena Ewing is [...] Tobacco Use: High Risk (08/27/2024) Received from [facility] Patient History Smoking Tobacco Use: Never Smokeless [...] lesions, n (more content not included)... Normal [facility] Lab Miscellaneous-LCon 03-23 Lab Miscellaneous COMMENT Invalid Interpretation Code [facility] Comment on above: Result Comment: Test Ordered: [id number] von Willebrand Genes Result Comment MNEGA PDF report to be sent separately This test was developed and its performance characteristics determined by [facility]. It has not been cleared or approved by the Food and Drug Administration. Performed at: [address] [id number] PhD Alfred Hwang Performed By: #### 1 [id number] #### [facility] [address] [place] [address] Lupus Anticoagon 02-10-2024 aPTT.lupus sensitive Coag (PPP) [Time] 29.4 second(s) Invalid Interpretation Code 0.0-43.[address] [facility] Comment on above: Performed By: #### 2 [id number] #### [facility] [address] [place] [address] dRVVT Coag (PPP) [Time] 32.8 second(s) Invalid Interpretation Code 0.0-47.[address] [facility] Comment on above: Performed By: #### 2 [id number] #### [facility] [address] [place] [address] Lupus anticoagulant two screening tests W Reflex Coag (PPP) [Interp] Comment: Invalid Interpretation Code [facility] Comment on above: Result Comment: No l upus anticoagulant was detected. Performed at: [address] [id number] MD Andrew Wilburn Performed By: #### 2 [id number] #### [facility] [address] [place] [address] vWF Activityon 02-10-2024 vWf ristocetin cofactor act actual/normal Platelet aggregation (PPP) [Relative time] 346 % High 50-[address] [facility] Comment on above: Result Comment: Perf ormed at: [address] [id number] MD Andrew Wilburn Performed By: #### 2 [id number] #### [facility] [address] [place] [address] von Willebrand Factor (vWF) Agon 02-10-2024 vWf [...] developed and its performance characteristics determined by [facility]. It has not been cleared or approved by the Food and Drug Administration. Performed at: [address] [id number] MD Andrew Wilburn Performed By: #### 2 [id number] #### [facility] [address] [place] [address] COAGULATIONOrdered By: Jeffrey Nelson on 02-06-2024 Platelet function (closure time) collagen+EPINEPHrine induced (Bld) [Time] 96 s Normal 70 - 138 second(s) [facility] Comment on above: Interpretive Data: N ormal ASA vWD Glanzmann s Thrombasthenia ------- ------ ------- COL/EPI Normal Abnormal Abnormal Abnormal Col/ADP Normal Normal Abnormal Abnormal Lab Miscellaneous-LCon 02-05 Test Code 853632 Invalid Interpretation Code [facility] Comment on above: Performed By: #### 1 [id number] #### [facility] [address] [place] [address] Test Name von Willebrand Invalid Interpretation Code [facility] Comment on above: Performed By: #### 1 [id number] #### [facility] [address] [place] [address] Plt Function Assayon 024 Platelet function (closure time) collagen+EPINEPHrine induced (Bld) [Time] 96 second(s) Normal 70-138 [facility] Comment on above: Result Comment: Norm al ASA vWD Glaangus???s Thrombasthenia ------- ------ ------- COL/EPI Normal Abnormal Abnormal Abnormal Col/ADP Normal Normal Abnormal Abnormal Performed By: #### 1 [id number] #### [facility] [address] [place] [address] Reference Laboratory Testing Ordered By: Paulette Frye on 02-06-2024 Test Code 985866 1 Invalid Interpretation Code [facility] Test Name von Willebrand Invalid Interpretation Code [facility] Summaryon 1 04-06-2023 Ambulatory Visit Summary Ambulatory Visit Summary XENA EWING :1955 Visit Date:02/05/2024 Ambulatory Visit Instructions Your Diagnosis Positive fecal occult blood test Your Care Team Attending Physician - MAR CLRAKE, Rubén Holman Primary Care Physician - Anamika [...] you for choosing us for your care. [facility] Provider Letteron 01-10-2024 Provider Letter Provider Letter January 10, 2024 XENA EWING [address] [place] [address] [address] [place] [id number] : 1955 Dear Gildardo, We have been trying to reach you with no success regarding a referral from Dr Valle. It is important that you return our call upon receiving this letter. Also, at the time of your call, please provide us with your current information. Thank you for your prompt attention to this matter. Sincerely, [facility] General Surgery [phone] [facility] MM screening mammo BI w/CADo n 12-27-2023 MM screening mammo BI w/CAD [facility] Main [address] [address] Mammography Report Signed Patient: Xena Ewing MR#: [id number] : 1955 Acct:[id number] Age/Sex: 68 / F ADM Date: 12/27/23 Loc: MD Room: Type: REG CLI Attending Dr: Referral [...] Schmidt Jr., D.O.12/27/2023 1:07 PM Dictation Location: [facility] Transcribed By: [facility] 12/27/23 1307 Dictated By: Blake Schmidt Jr, DO 12/27/23 130 Signed By: 12/27/23 1307 Normal [facility] No Panel Informationon 12-16 [facility] ACOG PANEL 2: 30 to 65on 04-26-2022 . . Normal [facility] Comment on above: Result Comment: Perf ormed at: WB Performed By: #### 4 [id number] #### [facility] [address] [address] [address] Kayy Virgen Age Gdln ACOG Testing 30-65 Normal [facility] Comment on above: Performed By: #### 4 [id number] #### [facility] [address] [place], [place] [address] Dr. Kayy Virgen DIAGNOSIS: Comment Normal [facility] Comment on above: Result Comment: UNSA TISFACTORY FOR EVALUATION. Performed at: WB Performed By: #### 4 [id number] #### [facility] [address] [address] [address] Kayy Virgen HPV Aptima Negative Normal Negative [facility] Comment on above: Result Comment: This nucleic acid amplification test detects fourteen high-risk HPV types (16,18,31,33,35,39,45,51,52,56,58,59,66,68) without differentiation. Performed at: =G Performed By: #### 4 [id number] #### [facility] [address] [address] [address] Kayy Virgen HPV Genotype Reflex Comment Normal [facility] Comment on above: Result Comment: Crit eria not met, HPV Genotype not performed. Performed at: WB Performed By: #### 4 [id number] #### [facility] [address] [place] [address] Dr. Kayy Virgen Methodology: Comment Normal [facility] Comment on above: Result Comment: This liquid based ThinPrep(R) pap test was screened with the use of an image guided system. Performed at: WB Performed By: #### 4 [id number] #### [facility] [address] [place] [address] Dr. Kayy Virgen Note: Comment Normal [facility] Comment on above: Result [...] Performed at: WB Performed By: #### 4 [id number] #### [facility] [address] [place] [address] Dr. Kayy Virgen Performed by: Comment Normal [facility] Comment on above: Result Comment: Arturo Peters, Rooms Director (ASCP) Performed at: [facility] Performed By: #### 4 [id number] #### [facility] [address] [place] [address] Dr. Kayy Virgen QC reviewed by: Comment Normal [facility] Comment on above: Result Comment: Pepe Cordova, Supervisory Rooms Director (ASCP) Performed at: WB Performed By: #### 4 [id number] #### [facility] [address] [address] [address] Kayy Virgen Recommendation: Comment Normal [facility] Comment on above: Result Comment: Sugg est follow up as clinically appropriate. Performed at: WB Performed By: #### 4 [id number] #### [facility] [address] [address] [address] Kayy Virgen Specimen adequacy: Comment Normal [facility] Comment on above: Result Comment: Spec imen processed and examined but unsatisfactory for evaluation of epithelial abnormality because of insufficient cellularity. Performed at: WB Performed By: #### 4 [id number] #### [facility] [address] [place] [address] Dr. Kayy Virgen US THYROIDon 01-05-2022 US [...] TR 4 nodule, previously biopsied TI-RADS: [employer] [place] [employer] TI-RADS committee's white paper recommendations for thyroid lesions classified as TR3 (mildly suspicious) are listed below: > 1.5 cm. Follow-up ultrasound in 1, 3, and 5 years. > 2.5 cm. FNA. J. Am Anais Radiol 2017;14:587-595. Electronically authenticated by: ENIO MOHAN Date: 2022-01-05 15:25 Normal [facility] T4, T3U, FTI LABCORPon 11-10 Free Thyroxine Index 2.0 Normal 1.2-4.9 [facility] Comment on above: Performed By: #### T HYLC ####[facility] [address] [id number]. Kayy Virgen T3 Uptake 26 % Normal 24-39 [facility] Comment on above: Performed By: #### T HYLC ####[facility] [address] [id number]. Kayy Virgen T4 [Mass/Vol] 7.5 ug/dL Normal 4.5-12.0 [facility] Comment on above: Performed By: #### T HYLC ####[facility] [address] [id number]. Shereesamia Virgen CBC AUTO DIFFon 11-09-2021 BASO # 0.1 103/ul Normal 0.0-0.1 [facility] Comment on above: Performed By: #### C BC ####[facility] [address] [place], [place] [address]Dr. Kayy Virgen Basophils/100 WBC (Bld) 2.1 % Critically high 0.2-2.0 [facility] Comment on above: Performed By: #### C BC ####[facility] [address] [place], [place] [address]Dr. Shereesamia Virgen EO # 0.2 103/ul Normal 0.0-0.7 [facility] Comment on above: Performed By: #### C BC ####[facility] [address] [place], [place] [address]Dr. Kayy Virgen Eosinophils/100 WBC (Bld) 5.1 % Normal 0.9-7.0 [facility] Comment on above: Performed By: #### C BC ####[facility] [address] [place], [place] [address]Dr. Shereesamia Virgen Erythrocyte distribution width (RBC) [Ratio] 14.6 % Normal 11.0-15.0 [facility] Comment on above: Performed By: #### C BC ####[facility] [address] [place], [place] [address]Dr. Kayy Virgen Hematocrit (Bld) [Volume fraction] 38.5 % Normal 36.0-48.0 [facility] Comment on above: Performed By: #### C BC ####[facility] [address] [id number]. Kayy Virgen Hemoglobin (Bld) [Mass/Vol] 12.4 g/dL Normal 12.0-16.0 [facility] Comment on above: Performed By: #### C BC ####[facility] [address] [id number]. Kayy Virgen IG # 0.01 10e3/ul Normal 0.00-0.03 [facility] Comment on above: Performed By: #### C BC ####[facility] [address] [address]Dr. Kayy Virgen IG % 0.2 % Normal 0.0-0.5 [facility] Comment on above: Performed By: #### C BC ####[facility] [address] [address]Dr. Kayy Param LYMPH # 1.5 103/ul Normal 1.2-3.8 [facility] Comment on above: Performed By: #### C BC ####[facility] [address] [address]Dr. Kayy Param Lymphocytes/100 WBC (Bld) 33.7 % Normal 20.5-60.0 [facility] Comment on above: Performed By: #### C BC ####[facility] [address] [address]Dr. Shereesamia Virgen MANUAL DIFF REQ NO Normal [facility] Comment on above: Performed By: #### C BC ####[facility] [address] [id number]. Kayy Virgen MCH (RBC) [Entitic mass] 26.7 pg Normal 26.7-34.0 [facility] Comment on above: Performed By: #### C BC ####[facility] [address] [id number]. Kayy Param MCHC (RBC) [Mass/Vol] 32.2 g/dL Normal 29.9-35.2 [facility] Comment on above: Performed By: #### C BC ####[facility] [address] [id number]. Kayy Virgen MCV (RBC) [Entitic vol] 82.8 fL Normal 81.0-99.0 [facility] Comment on above: Performed By: #### C BC ####[facility] [address] [id number]. Kayy Virgen MONO # 0.5 103/ul Normal 0.3-0.8 [facility] Comment on above: Performed By: #### C BC ####[facility] [address] [id number]. Shereesamia Virgen Monocytes/100 WBC (Bld) 11.9 % Normal 1.7-12.0 [facility] Comment on above: Performed By: #### C BC ####[facility] [address] [place], [place] [address]Dr. Kayy Param NEUT # 2.0 103/ul Normal 1.4-6.5 [facility] Comment on above: Performed By: #### C BC ####[facility] [address] [place], [place] [address]Dr. Shereesamia Virgen Neutrophils/100 WBC (Bld) 47.0 % Normal 43.0-75.0 [facility] Comment on above: Performed By: #### C BC ####[facility] [address] [place], [place] [address]Dr. Kayy Virgen Platelet mean volume (Bld) [Entitic vol] 9.7 fL Normal 9.5-13.5 [facility] Comment on above: Performed By: #### C BC ####[facility] [address] [place], [place] [address]Dr. Kayy Virgen PLT 269 103/ul Normal 150-450 [facility] Comment on above: Performed By: #### C BC ####[facility] [address] [place], [place] [address]Dr. Kayy Virgen RBC 4.65 106/ul Normal 4.20-5.40 [facility] Comment on above: Performed By: #### C BC ####[facility] [address] [phone]. Kayy Virgen WBC 4.3 103/ul Normal 4.0-11.0 [facility] Comment on above: Performed By: #### C BC ####[facility] [address] [id number]. Kayy Virgen GLYCOHEMOGLOBIN A1Con 2021 ADA RECOMMENDATION SEE BELOW Normal [facility] Comment on above: Result Comment: ADA RECOMMENDED LIMIT 4.0 - 6.0 ADA THERAPEUTIC TARGET < 7.0 ACTION SUGGESTED > 7.0 Performed By: #### A 1C #### [facility] [address] [place] [address] Dr. Kayy Virgen Glucose [Mass/Vol] 117 mg/dL Normal [facility] Comment on above: Performed By: #### A 1C #### [facility] [address] [place] [address] Dr. Kayy Virgen HbA1c (Bld) [Mass fraction] 5.7 % Normal 4.5-6.2 [facility] Comment on above: Performed By: #### A 1C #### [facility] [address] [place] [address] Dr. Kayy Virgen IRONon 11-09-2021 Iron [Mass/Vol] 100.0 ug/dL Normal 50.0-170.0 [facility] Comment on above: Performed By: #### I STEPHANI #### [facility] [address] [place] [address] Dr. Kayy Virgen PROF 14(COMP METB)on 022 Albumin [Mass/Vol] 4.0 g/dL Normal 3.4-5.0 [facility] Comment on above: Performed By: #### C MERRILL, TSH #### [facility] [address] [place] [address] Dr. Kayy Virgen Albumin/Globulin [Mass ratio] 1.1 {ratio} Normal [facility] Comment on above: Performed By: #### C MERRILL, TSH #### [facility] [address] [place] [address] Dr. Kayy Virgen ALP [Catalytic activity/Vol] 109 U/L Normal 46-116 [facility] Comment on above: Performed By: #### C MP, TSH #### [facility] [address] [address] [address] Kayy Virgen ALT [Catalytic activity/Vol] 26 U/L Normal 14-59 [facility] Comment on above: Performed By: #### C MP, TSH #### [facility] [address] [address] [address] Kayy Virgen Anion gap [Moles/Vol] 11.2 mmol/L Normal [facility] Comment on above: Performed By: #### C MP, TSH #### [facility] [address] [place] [address] Dr. Kayy Virgen AST [Catalytic activity/Vol] 58 U/L Critically high 15-37 [facility] Comment on above: Performed By: #### C MP, TSH #### [facility] [address] [address] [address] Kayy Virgen Bilirubin [Mass/Vol] 0.4 mg/dL Normal 0.2-1.0 [facility] Comment on above: Performed By: #### C MP, TSH #### [facility] [address] [place] [address] Dr. Kayy Virgen Calcium [Mass/Vol] 9.8 mg/dL Normal 8.5-10.1 [facility] Comment on above: Performed By: #### C MP, TSH #### [facility] [address] [address] [address] Kayy Virgen Chloride [Moles/Vol] 103 mmol/L Normal 98-107 [facility] Comment on above: Performed By: #### C MP, TSH #### [facility] [address] [address] [address] Kayy Virgen CO2 [Moles/Vol] 28.2 mmol/L Normal 21.0-32.0 [facility] Comment on above: Performed By: #### C MP, TSH #### [facility] [address] [place] [address] Dr. Kayy Virgen Creatinine [Mass/Vol] 0.98 mg/dL Normal 0.55-1.02 [facility] Comment on above: Performed By: #### C MP, TSH #### [facility] [address] [address] [address] Kayy Virgen EGFR-AF NIGERIAN >60 Normal >=60 [facility] Comment on above: Performed By: #### C MP, TSH #### [facility] [address] [address] [address] Kayy Virgen EGFR-NON AF NIGERIAN 57 mL/min/1.73m2 Critically low >=60 [facility] Comment on above: Performed By: #### C MP, TSH #### [facility] [address] [address] [address] Kayy Virgen Globulin (S) [Mass/Vol] 3.8 g/dL Normal [facility] Comment on above: Performed By: #### C MP, TSH #### [facility] [address] [address] [address] Kayy Virgen Glucose [Mass/Vol] 102 mg/dL Normal 74-106 [facility] Comment on above: Performed By: #### C MP, TSH #### [facility] [address] [address] [address] Kayy Virgen Potassium [Moles/Vol] 4.4 mmol/L Normal 3.5-5.1 [facility] Comment on above: Performed By: #### C MP, TSH #### [facility] [address] [address] [address] Kayy Virgen Protein [Mass/Vol] 7.8 g/dL Normal 6.4-8.2 [facility] Comment on above: Performed By: #### C MP, TSH #### [facility] [address] [address] [address] Kayy Virgen Sodium [Moles/Vol] 138 mmol/L Normal 136-145 [facility] Comment on above: Performed By: #### C MP, TSH #### [facility] [address] [address] [address] Kayy Virgen Urea nitrogen [Mass/Vol] 22.0 mg/dL Critically high 7.0-18.0 [facility] Comment on above: Performed By: #### C MP, TSH #### [facility] [address] [address] [address] Kayy Virgen Urea nitrogen/Creatinine [Mass ratio] 22.4 mg/mg Normal [facility] Comment on above: Performed By: #### C MP, TSH #### [facility] [address] [address] [address] Kayy Virgen TSHon 11-09-2021 TSH 1.200 uIU/mL Normal 0.358-3.740 [facility] Comment on above: Performed By: #### C MP, TSH #### [facility] [address] [place] [address] Dr. Kayy Virgen AMYLASEon 08-31-2021 Amylase [Catalytic activity/Vol] 34 U/L Normal 25-115 [facility] Comment on above: Performed By: #### A MY, CMP, LIPA ####[facility] [address] [address]Dr. Kayy Virgen CBC AUTO DIFFon 08-31-2021 BASO # 0.1 103/ul Normal 0.0-0.1 [facility] Comment on above: Performed By: #### C BC ####[facility] [address] [address]Dr. Kayy Virgen Basophils/100 WBC (Bld) 0.8 % Normal 0.2-2.0 [facility] Comment on above: Performed By: #### C BC ####[facility] [address] [address]DrIrene Virgen EO # 0.0 103/ul Normal 0.0-0.7 [facility] Comment on above: Performed By: #### C BC ####[facility] [address] [address]Dr. Kayy Virgen Eosinophils/100 WBC (Bld) 0.6 % Critically low 0.9-7.0 [facility] Center Comment on above: Performed By: #### C BC ####[facility] Nfxro[address] [place], [place] [address]Dr. Kayy Virgen Erythrocyte distribution width (RBC) [Ratio] 13.9 % Normal 11.0-15.0 [facility] Comment on above: Performed By: #### C BC ####[facility] Ycrtoocxpk[address] [place], [place] [address]Dr. Kayy Virgen Hematocrit (Bld) [Volume fraction] 37.7 % Normal 36.0-48.0 [facility] Comment on above: Performed By: #### C BC ####[facility] Gfdmnanquc[address] [place], [place] [address]Dr. Kayy Virgen Hemoglobin (Bld) [Mass/Vol] 12.3 g/dL Normal 12.0-16.0 [facility] Comment on above: Performed By: #### C BC ####[facility] Lbipksrbeq[address] [place], [place] [address]Dr. Kayy Virgen IG # 0.02 10e3/ul Normal 0.00-0.03 [facility] Comment on above: Performed By: #### C BC ####[facility] Z[address]ttd[address]lsz[address] [place], [place] [address]Dr. Kayy Virgen IG % 0.3 % Normal 0.0-0.5 [facility] Comment on above: Performed By: #### C BC ####[facility] Gujygsmrra[address] [place], [place] [address]Dr. Kayy Virgen LYMPH # 1.4 103/ul Normal 1.2-3.8 [facility] Comment on above: Performed By: #### C BC ####[facility] Qgjc[address]akfy[address] [place], [place] [address]Dr. Kayy Virgen Lymphocytes/100 WBC (Bld) 20.8 % Normal 20.5-60.0 [facility] Comment on above: Performed By: #### C BC ####[facility] Mlbazidwfi[address] [place], [place] [address]Dr. Kayy Virgen MANUAL DIFF REQ NO Normal [facility] Comment on above: Performed By: #### C BC ####[facility] [address] [place] [id number]. Kayy Param MCH (RBC) [Entitic mass] 26.9 pg Normal 26.7-34.0 [facility] Comment on above: Performed By: #### C BC ####[facility] [address]okk[address] [place] [id number]. Kayy Param MCHC (RBC) [Mass/Vol] 32.6 g/dL Normal 29.9-35.2 [facility] Comment on above: Performed By: #### C BC ####[facility] [address] [place] [address]Dr. Shereesamia Virgen MCV (RBC) [Entitic vol] 82.5 fL Normal 81.0-99.0 [facility] Comment on above: Performed By: #### C BC ####[facility] Pwvjinmdac[address] [place], [place] [address]Dr. Kayy Virgen MONO # 0.6 103/ul Normal 0.3-0.8 [facility] Comment on above: Performed By: #### C BC ####[facility] Dcpbspkdge[address] [place], [place] [address]Dr. Shereesamia Virgen Monocytes/100 WBC (Bld) 8.8 % Normal 1.7-12.0 [facility] Comment on above: Performed By: #### C BC ####[facility] Pydmjkubjr[address] [place], [place] [address]Dr. Kayy Virgen NEUT # 4.5 103/ul Normal 1.4-6.5 [facility] Comment on above: Performed By: #### C BC ####[facility] [address] [place], [place] [address]Dr. Kayy Virgen Neutrophils/100 WBC (Bld) 68.7 % Normal 43.0-75.0 [facility] Comment on above: Performed By: #### C BC ####[facility] Movquzfnii[address] [place], [place] [address]Dr. Kayy Virgen Platelet mean volume (Bld) [Entitic vol] 10.2 fL Normal 9.5-13.5 [facility] Comment on above: Performed By: #### C BC ####[facility] [address] [place], [place] [address]Ul. Kayy Virgen PLT 265 103/ul Normal 150-450 [facility] Comment on above: Performed By: #### C BC ####[facility] Cl[address] [place], [place] [address]Ig. Kayy Virgen RBC 4.57 106/ul Normal 4.20-5.40 [facility] Comment on above: Performed By: #### C BC ####[facility] [address] [place], [place] [address]Io. Kayy Virgen WBC 6.5 103/ul Normal 4.0-11.0 [facility] Comment on above: Performed By: #### C BC ####[facility] [address] [place], [place] [address]Wf. [address] CT ABD/PELVIS WO CONon 08-31 [...] DANNA CASTLE Date: 2021-08-31 12:25 Normal [facility] ER URINE PROFILEon 2 Bilirubin Ql (U) Negative Normal NEGATIVE [facility] [place] [facility] Comment on above: Performed By: #### E RUR #### [facility] [address] [place] [address] Dr. Kayy Virgen Clarity (U) CLEAR Normal CLEAR [facility] Comment on above: Performed By: #### E RUR #### [facility] [address] [place] [address] Dr. Kayy Virgen Color (U) LT. YELLOW Normal YELLOW [facility] Comment on above: Performed By: #### E RUR #### [facility] [address] [place] [address] Dr. Kayy CABRERA A micrscopic examination will be performed if indicated. Normal [facility] Comment on above: Performed By: #### E RUR #### [facility] [address] [place] [address] Dr. Kayy Virgen Glucose Ql (U) Negative Normal NEGATIVE [facility] Comment on above: Performed By: #### E RUR #### [facility] [address] [place] [address] Dr. Kayy Virgen Hemoglobin Ql (U) Negative Normal NEGATIVE [facility] Comment on above: Performed By: #### E RUR #### [facility] [address] [place] [address] Dr. Kayy Virgen Ketones Ql (U) Negative Normal NEGATIVE [facility] Comment on above: Performed By: #### E RUR #### [facility] [address] [place] [address] Dr. Kayy Virgen LEUKOCYTES Negative Normal NEGATIVE [facility] Comment on above: Performed By: #### E RUR #### [facility] [address] [place] [address] Dr. Kayy Virgen Nitrite Ql (U) Negative Normal NEGATIVE [facility] Comment on above: Performed By: #### E RUR #### [facility] [address] [address] [address] Kayy Virgen pH (U) 6.0 [pH] Normal 5-9 [facility] Comment on above: Performed By: #### E RUR #### [facility] [address] [address] [address] Kayy Virgen SPEC GRAVITY <=1.005 Abnormal 1.005-<=1.[address] [place] [address] Comment on above: Performed By: #### E RUR #### [facility] [address] [address] [address] Kayy Virgen UA PROTEIN Negative Normal NEGATIVE/ TRACE [facility] Comment on above: Performed By: #### E RUR #### [facility] [address] [place] [address] Dr. Kayy Virgen UR MICRO IND NOT INDICATED Normal [facility] Comment on above: Performed By: #### E RUR #### [facility] [address] [place] [address] Dr. Kayy Virgen Urobilinogen Qn (U) 0.2 {Cuauhtemoc'U}/dL Normal 0.2 - 1. 0 [facility] Comment on above: Performed By: #### E RUR #### [facility] [address] [place] [address] Dr. Kayy Virgen LIPASEon 08-31-2021 Lipase [Catalytic activity/Vol] 73.0 U/L Normal 73.0-393.0 [facility] Comment on above: Performed By: #### A MY, CMP, LIPA #### [facility] [address] [address] [address] Kayy Virgen PROF 14(COMP METB)on 022 Albumin [Mass/Vol] 3.6 g/dL Normal 3.4-5.0 [facility] Comment on above: Performed By: #### A MY, CMP, LIPA ####[facility] [address] [place] [address]Dr. Kayy Virgen Albumin/Globulin [Mass ratio] 0.9 {ratio} Normal [facility] Comment on above: Performed By: #### A MY, CMP, LIPA ####[facility] [address] [place] [address]Dr. Kayy Virgen ALP [Catalytic activity/Vol] 98 U/L Normal 46-116 [facility] Comment on above: Performed By: #### A MY, CMP, LIPA ####[facility] [address] [place] [address]Dr. Kayy Virgen ALT [Catalytic activity/Vol] 22 U/L Normal 14-59 [facility] Comment on above: Performed By: #### A MY, CMP, LIPA ####[facility] [address] [place] [address]Dr. Kayy Virgen Anion gap [Moles/Vol] 12.6 mmol/L Normal [facility] Comment on above: Performed By: #### A MY, CMP, LIPA ####[facility] [address] [place] [address]Dr. Kayy Virgen AST [Catalytic activity/Vol] 44 U/L Critically high 15-37 [facility] Comment on above: Performed By: #### A MY, CMP, LIPA ####[facility] [address] [place] [address]Dr. Kayy Virgen Bilirubin [Mass/Vol] 0.5 mg/dL Normal 0.2-1.0 [facility] Comment on above: Performed By: #### A MY, CMP, LIPA ####[facility] [address] [place] [address]Dr. Kayy Virgen Calcium [Mass/Vol] 9.2 mg/dL Normal 8.5-10.1 [facility] Comment on above: Performed By: #### A MY, CMP, LIPA ####[facility] [address] [place] [address]Dr. Kayy Virgen Chloride [Moles/Vol] 104 mmol/L Normal 98-107 [facility] Comment on above: Performed By: #### A MY, CMP, LIPA ####[facility] [address] [place] [id number]. Kayy Virgen CO2 [Moles/Vol] 24.3 mmol/L Normal 21.0-32.0 [facility] [place] [facility] Comment on above: Performed By: #### A MY, CMP, LIPA ####[facility] [address] [place] [address]Dr. Kayy Virgen Creatinine [Mass/Vol] 0.87 mg/dL Normal 0.55-1.02 [facility] Comment on above: Performed By: #### A MY, CMP, LIPA ####[facility] [address] [place] [address]Dr. Kayy Virgen EGFR-AF NIGERIAN >60 Normal >=60 [facility] Comment on above: Performed By: #### A MY, CMP, LIPA ####[facility] [address] [place] [address]Dr. Kayy Param EGFR-NON AF NIGERIAN >60 Normal >=60 [facility] Comment on above: Performed By: #### A MY, CMP, LIPA ####[facility] [address] [place] [address]Dr. Kayy Virgen Globulin (S) [Mass/Vol] 4.0 g/dL Normal [facility] Comment on above: Performed By: #### A MY, CMP, LIPA ####[facility] [address]mrbi[address] [place] [address]Dr. Kayy Virgen Glucose [Mass/Vol] 96 mg/dL Normal 74-106 [facility] Comment on above: Performed By: #### A MY, CMP, LIPA ####[facility] [address] [place] [address]Dr. Kayy Virgen Potassium [Moles/Vol] 3.9 mmol/L Normal 3.5-5.1 [facility] Comment on above: Performed By: #### A MY, CMP, LIPA ####[facility] [address] [place] [address]Dr. Kayy Param Protein [Mass/Vol] 7.6 g/dL Normal 6.4-8.2 [facility] Comment on above: Performed By: #### A MY, CMP, LIPA ####[facility] [address] [place], [place] [address]Vl. Kayy Virgen Sodium [Moles/Vol] 137 mmol/L Normal 136-145 [facility] Comment on above: Performed By: #### A MY, CMP, LIPA ####[facility] [address] [place], [place] [address]Sh. Kayy Virgen Urea nitrogen [Mass/Vol] 11.0 mg/dL Normal 7.0-18.0 [facility] Comment on above: Performed By: #### A MY, CMP, LIPA ####[facility] [address] [place], [place] [address]En. Kayy Virgen Urea nitrogen/Creatinine [Mass ratio] 12.6 mg/mg Normal [facility] Comment on above: Performed By: #### A MY, CMP, LIPA ####[facility] [address] [place], [place] [address]Gn. Kayy Virgen US THYROID FN ASP BXon 07-05 US THYROID FN ASP BX Begin Addendum #1 COLLECTED DATE/TIME: 06/29/2021 13:56 EDT Final Diagnosis Report for [facility] (A/B) RIGHT THYROID NODULE; FINE NEEDLE [...] 2. Pathology results are pending. Normal [facility] US THYROIDon 06-21-2021 US THYROID EXAMINATION: US [...] nodule. Fine needle aspiration recommended TI-RADS: [employer] [place] [employer] TI-RADS committee's white paper recommendations for thyroid lesions classified as TR4 (moderately suspicious) are listed below: > 1.0 cm. Follow-up ultrasound in 1, 2, 3, and 5 years. > 1.5 cm. FNA. J. Am Anais Radiol 2017;14:[id number]. Electronically authenticated by: ENIO MOHAN Date: 2021-06-21 12:10 Normal [facility] US CAROTID ART BILon 022 US CAROTID [...] DANNA CASTLE Date: 2021-06-08 13:16 Normal [facility] Blood Occult Stool Screen #1 on 10-13-2019 Date, Stool #1 [id number] [facility] [place], [place] Date, Stool #2 [...] [place], [place] Time, Stool #3 NOT REPORTED [facility]- [place], [place] Occult Blood, Fecalon 2019 Occult Blood 1 Negative Normal NEG [facility] Comment on above: Performed By: #### O BN #### [facility] [address] [place] [address] [place] Aide: Elisabeth Worthy MD Specimen 1 Date [facility] Comment on above: Performed By: #### O BN #### [facility] [address] [place] [address] [place] Aide: Elisabeth Worthy MD Specimen 1 Time 1199 [facility] Comment on above: Performed By: #### O BN #### [facility] [address] [place] [address] [place] Aide: Elisabeth Worthy MD Specimen 2 Date NOT REPORTED Normal [facility] Comment on above: Performed By: #### O BN #### [facility] [address] [place] [address] [place] Aide: Elisabeth Worthy MD Specimen 2 Time NOT REPORTED Normal [facility] Comment on above: Performed By: #### O BN #### [facility] [address] [place] [address] [place] Aide: Elisabeth Worthy MD Specimen 3 Date NOT REPORTED Normal [facility] Comment on above: Performed By: #### O BN #### [facility] [address] [place], [place] [id number] [place] Aide: Elisabeth Worthy MD Specimen 3 Time NOT REPORTED Normal [facility] Comment on above: Performed By: #### O BN #### [facility] [address] [place], [place] [phone] [place] Aide: Elisabeth Worthy MD Occult Blood 2 NOT REPORTED Normal NEG [facility] Comment on above: Performed By: #### O BN #### [facility] [address] [place] [address] [place] Aide: Elisabeth Worthy MD Occult Blood 3 NOT REPORTED Normal NEG [facility] Comment on above: Performed By: #### O BN #### [facility] [address] [place] [phone] [place] Aide: Elisabeth Worthy MD Free Thyroxine Indexon 10-07 FTI Ratio 2.0 ug/dL Normal 1.4-3.1 [facility] Comment on above: Performed By: #### Jeramie PAUL FE #### [address] [phone] [place] Aide: Otoniel Ash MD #### TSH, LIPR, CP, GLYHGB, CDP #### [facility] [address] [place] [address] [place] Aide: Elisabeth Worthy MD T4 [Mass/Vol] 29.74 % Normal 22.5-37.0 [facility] Comment on above: Performed By: #### F HUMBERTO, FE #### [address] [id number] [place] Aide: Otoniel Ash MD #### TSH, LIPR, CP, GLYHGB, CDP #### [facility] [address] [place] [address] [place] Aide: Elisabeth Worthy MD T4 [Mass/Vol] 6.6 ug/dL Normal 4.5-10.9 [facility] Comment on above: Performed By: #### F TI, FE #### [facility] [address] [place], [place] [address] [place] Aide: Otoniel Ash MD #### TSH, LIPR, CP, GLYHGB, CDP #### [facility] [address] [place] [address] [place] Aide: Elisabeth Worthy MD Ironon 10-08-2019 Iron [Mass/Vol] 73 ug/dL Normal 37-145 [facility] Comment on above: Performed By: #### F TI, FE #### [facility] [address] [place], [place] [phone] [place] Aide: Otoniel Ash MD #### TSH, LIPR, CP, GLYHGB, CDP #### [facility] [address] [place] [address] [place] Aide: Elisabeth Worthy MD T3 uptake and FTIon 10-08-19 Free Thyroxine Index 2 ug/dL 1.4 - 3 .1 ug/dL [place] T4 [Mass/Vol] 29.74 % 22.5 - 37 % [place] T4, Total 6.6 ug/dL 4.5 - 10.9 ug/dL [place] CBC Auto Differentialon 09-16 Basophils (Bld) [#/Vol] 0.07 10*3/uL [place] Basophils/100 WBC (Bld) 1 % 0 - 2 % [place] Differential Type NOT REPORTED [place] Eosinophils (Bld) [#/Vol] 0.06 10*3/uL [place] Eosinophils/100 WBC (Bld) 1 % 1 - 4 % [place] Erythrocyte distribution width (RBC) [Ratio] 14.5 % High 11.8 - 14.4 % [place] Hematocrit (Bld) [Volume fraction] 42.4 % 36.3 - 47.1 % [place] Hemoglobin (Bld) [Mass/Vol] 13.2 g/dL 11.9 - 15.1 g/dL [place] Immature granulocytes (Bld) [#/Vol] 10*3/uL [place] Immature granulocytes (Bld) [#/Vol] 0 % 0 [place] Interpretation and review of laboratory results Abnormal [place] Lymphocytes (Bld) [#/Vol] 1.87 10*3/uL [place] Lymphocytes/100 WBC (Bld) 33 % 24 - 43 % [place] MCH (RBC) [Entitic mass] 26.1 pg 25.2 - 33.5 pg [place] MCHC (RBC) [Mass/Vol] 31.1 g/dL 28.4 - 34.8 g/dL [place] MCV (RBC) [Entitic vol] 84.0 fL 82.6 - 102.9 fL [place] Monocytes (Bld) [#/Vol] 0.45 10*3/uL [place] Monocytes/100 WBC (Bld) 8 % 3 - 12 % [place] Platelet mean volume (Bld) [Entitic vol] 10.1 fL 8.1 - 13.5 fL [place] Platelets (Bld) [#/Vol] 270 10*3/uL [place] Platelets (Bld) [#/Vol] NOT REPORTED [place] RBC (Bld) [#/Vol] 5.05 10*6/uL 3.95 - 5.1 1 m/uL [place] RBC morphology finding Nom (Bld) NOT REPORTED [place] Segmented neutrophils/100 WBC (Bld) 57 % 36 - 65 % [place] Segs Absolute 3.17 [place] WBC (Bld) [#/Vol] 5.6 10*3/uL [place] WBC (Bld) [#/Vol] 0.0 10*3/uL 0.0 per 10 0 WBC [place] WBC Morphology NOT REPORTED [place] CBC with Diffon 10-07-2019 Abs. Basophil 0.07 k/uL Normal 0.00-0.20 [facility] Comment on above: Performed By: #### F TI, FE #### [address] [address] [place] Aide: Otoniel Ash MD #### TSH, LIPR, CP, GLYHGB, CDP #### [facility] [address] [place] [address] [place] [address] [place] Aide: Elisabeth Worthy MD Abs.Imm.Granulocyte <0.03 Normal 0.00-0.30 [facility] Comment on above: Performed By: #### F TI, FE #### [place] [address] [place] Aide: Otoniel Ash MD #### TSH, LIPR, CP, GLYHGB, CDP #### [facility] [address] [place] [address] [place] [phone] [place] Aide: Elisabeth Worthy MD Abs.Neutrophil (Seg) 3.17 k/uL Normal 1.50-8.10 [facility] Comment on above: Performed By: #### F TI, FE #### [place] [address] [place] Aide: Otoniel Ash MD #### TSH, LIPR, CP, GLYHGB, CDP #### [address] [place] [phone] [place] Aide: Elisabeth Worthy MD Basophils/100 WBC (Bld) 1 % Normal 0-2 [facility] Comment on above: Performed By: #### F TI, FE #### [address] [address] [place] Aide: Otoniel Ash MD #### TSH, LIPR, CP, GLYHGB, CDP #### [facility] [address] [place] [phone] [place] Aide: Elisabeth Worthy MD Eosinophils (Bld) [#/Vol] 0.06 10*3/uL Normal 0.00-0.44 [facility] Comment on above: Performed By: #### F TI, FE #### [address] [id number] [place] Aide: Otoniel Ash MD #### TSH, LIPR, CP, GLYHGB, CDP #### [address] [place] [phone] [place] Aide: Elisabeth Worthy MD Eosinophils/100 WBC (Bld) 1 % Normal 1-4 [facility] Comment on above: Performed By: #### F TI, FE #### [address] [address] [place] Aide: Otoniel Ash MD #### TSH, LIPR, CP, GLYHGB, CDP #### [address] [place] [phone] [place] Aide: Elisabeth Worthy MD Erythrocyte distribution width (RBC) [Ratio] 14.5 % High 11.8-14.4 [facility] Comment on above: Performed By: #### F TI, FE #### [address] [id number] [place] Aide: Otoniel Ash MD #### TSH, LIPR, CP, GLYHGB, CDP #### [address] [place] [phone] [place] Aide: Elisabeth Worthy MD Hematocrit (Bld) [Volume fraction] 42.4 % Normal 36.3-47.1 [facility] Comment on above: Performed By: #### F TI, FE #### [address] [phone] [place] Aide: Otoniel Ash MD #### TSH, LIPR, CP, GLYHGB, CDP #### [address] [place] [address] [place] Aide: Elisabeth Worthy MD Hemoglobin (Bld) [Mass/Vol] 13.2 g/dL Normal 11.9-15.1 [facility] Comment on above: Performed By: #### F TI, FE #### [address] [phone] [place] Aide: Otoniel Ash MD #### TSH, LIPR, CP, GLYHGB, CDP #### [address] [place] [phone] [place] Aide: Elisabeth Worthy MD Immature granulocytes (Bld) [#/Vol] 0 % Normal 0 [facility] Comment on above: Performed By: #### F TI, FE #### [address] [phone] [place] Aide: Otoniel Ash MD #### TSH, LIPR, CP, GLYHGB, CDP #### [address] [place] [phone] [place] Aide: Elisabeth Worthy MD Lymphocytes (Bld) [#/Vol] 1.87 10*3/uL Normal 1.10-3.70 [facility] Comment on above: Performed By: #### F TI, FE #### [address] [phone] [place] Aide: Otoniel Ash MD #### TSH, LIPR, CP, GLYHGB, CDP #### [address] [place] [address] [place] Aide: Elisabeth Worthy MD Lymphocytes/100 WBC (Bld) 33 % Normal 24-43 [facility] Comment on above: Performed By: #### F TI, FE #### [address] [phone] [place] Aide: Otoniel Ash MD #### TSH, LIPR, CP, GLYHGB, CDP #### [address] [place] [phone] [place] Aide: Elisabeth Worthy MD MCH (RBC) [Entitic mass] 26.1 pg Normal 25.2-33.5 [facility] Comment on above: Performed By: #### F TI, FE #### [address] [address] [place] Aide: Otoniel sAh MD #### TSH, LIPR, CP, GLYHGB, CDP #### [address] [place] [phone] [place] Aide: Elisabeth Worthy MD MCHC (RBC) [Mass/Vol] 31.1 g/dL Normal 28.4-34.8 [facility] Comment on above: Performed By: #### F TI, FE #### [address] [address] [place] Aide: Otoniel Ash MD #### TSH, LIPR, CP, GLYHGB, CDP #### [address] [place] [phone] [place] Aide: Elisabeth Worthy MD MCV (RBC) [Entitic vol] 84.0 fL Normal 82.6-102.9 [facility] Comment on above: Performed By: #### F TI, FE #### [address] [id number] [place] Aide: Otoniel Ash MD #### TSH, LIPR, CP, GLYHGB, CDP #### [address] [place] [phone] [place] Aide: Elisabeth Worthy MD Monocytes (Bld) [#/Vol] 0.45 10*3/uL Normal 0.10-1.20 [facility] Comment on above: Performed By: #### F TI, FE #### [place] [address] [place] [address] [place] Aide: Otoniel Ash MD #### TSH, LIPR, CP, GLYHGB, CDP #### [facility] [address] [place], [place] [phone] [place] Aide: Elisabeth Worthy MD Monocytes/100 WBC (Bld) 8 % Normal 3-12 [facility] Comment on above: Performed By: #### F TI, FE #### [address] [phone] [place] Aide: Otoniel Ash MD #### TSH, LIPR, CP, GLYHGB, CDP #### [address] [place] [phone] [place] Aide: Elisabeth Worthy MD Neutrophil (Seg) 57 % Normal 36-65 [facility] Comment on above: Performed By: #### F TI, FE #### [address] [address] [place] Aide: Otoniel Ash MD #### TSH, LIPR, CP, GLYHGB, CDP #### [address] [place] [id number] [place] Aide: Elisabeth Worthy MD NRBC Automated 0.0 per 100 WBC Normal 0.0 [facility] Comment on above: Performed By: #### F TI, FE #### [address] [address] [place] Aide: Otoniel Ash MD #### TSH, LIPR, CP, GLYHGB, CDP #### [facility] [address] [place], [place] [id number] [place] Aide: Elisabeth Worthy MD Platelet mean volume (Bld) [Entitic vol] 10.1 fL Normal 8.1-13.5 [facility] Comment on above: Performed By: #### F TI, FE #### [address] [address] [place] Aide: Otoniel Ash MD #### TSH, LIPR, CP, GLYHGB, CDP #### [address] [place], [place] [id number] [place] Aide: Elisabeth Worthy MD Platelets (Bld) [#/Vol] 270 10*3/uL Normal 138-453 [facility] Comment on above: Performed By: #### F TI, FE #### [address] [address] [place] Aide: Otoniel Ash MD #### TSH, LIPR, CP, GLYHGB, CDP #### [address] [place] [phone] [place] Aide: Elisabeth Worthy MD RBC (Bld) [#/Vol] 5.05 10*6/uL Normal 3.95-5.11 [facility] Comment on above: Performed By: #### F TI, FE #### [address] [address] [place] Aide: Otoniel Ash MD #### TSH, LIPR, CP, GLYHGB, CDP #### [address] [place] [phone] [place] Aide: Elisabeth Worthy MD WBC (Bld) [#/Vol] 5.6 10*3/uL Normal 3.5-11.3 [facility] Comment on above: Performed By: #### F TI, FE #### [address] [address] [place] Aide: Otoniel Ash MD #### TSH, LIPR, CP, GLYHGB, CDP #### [address] [place] [phone] [place] Aide: Elisabeth Worthy MD Auto Diff Performed NOT REPORTED Normal [facility] Comment on above: Performed By: #### F TI, FE #### [address] [address] [place] Aide: Otoniel Ash MD #### TSH, LIPR, CP, GLYHGB, CDP #### [address] [place] [phone] [place] Aide: Elisabeth Worthy MD Platelets (Bld) [#/Vol] NOT REPORTED Normal [facility] Comment on above: Performed By: #### F TI, FE #### [address] [address] [place] Aide: Otoniel Ash MD #### TSH, LIPR, CP, GLYHGB, CDP #### [address] [place] [address] [place] Aide: Elisabeth Worthy MD RBC morphology finding Nom (Bld) NOT REPORTED Normal [facility] Comment on above: Performed By: #### F TI, FE #### [address] [address] [place] Aide: Otoniel Ash MD #### TSH, LIPR, CP, GLYHGB, CDP #### [address] [place] [phone] [place] Aide: Elisabeth Worthy MD WBC Morphology NOT REPORTED Normal [facility] Comment on above: Performed By: #### F TI, FE #### [address] [address] [place] Aide: Otoniel Ash MD #### TSH, LIPR, CP, GLYHGB, CDP #### [address] [place] [phone] [place] Aide: Elisabeth Worthy MD Comp Metabolic Profon 2019 (cont.) Normal [facility] Comment on above: Result Comment: Aver age GFR for 60-69 years old: 85 mL/min/1.73sq m Chronic Kidney Disease: <60 mL/min/1.73sq m Kidney failure: <15 mL/min/1.73sq m eGFR calculated using average adult body mass. Additional eGFR calculator available at: http://www.TastemakerX/multiple_crcl_2011.htm Performed By: #### F TI, FE #### [address] [address] [place] Aide: Otoniel Ash MD #### TSH, LIPR, CP, GLYHGB, CDP #### [facility] [address] [place] [address] [place] Aide: Elisabeth Worthy MD Albumin [Mass/Vol] 4.5 g/dL Normal 3.5-5.2 [facility] Comment on above: Performed By: #### F TI, FE #### [address] [address] [place] Aide: Otoniel Ash MD #### TSH, LIPR, CP, GLYHGB, CDP #### [facility] [address] [place] [address] [place] Aide: Elisabeth Worthy MD Albumin/Globulin [Mass ratio] 1.4 {ratio} Normal 1.0-2.5 [facility] Comment on above: Performed By: #### F TI, FE #### [address] [address] [place] Aide: Otoniel Ash MD #### TSH, LIPR, CP, GLYHGB, CDP #### [facility] [address] [place] [address] [place] Aide: Elisabeth Worthy MD Alkaline Phos 94 U/L Normal 35-104 [facility] Comment on above: Performed By: #### F TI, FE #### [address] [address] [place] Aide: Otoniel Ahs MD #### TSH, LIPR, CP, GLYHGB, CDP #### [facility] [address] [place], [place] [phone] [place] Aide: Elisabeth Worthy MD ALT [Catalytic activity/Vol] 10 U/L Normal 5-33 [facility] Comment on above: Performed By: #### F TI, FE #### [address] [address] Congressional [place] Aide: Otoniel Ash MD #### TSH, LIPR, CP, GLYHGB, CDP #### [address] [place], [place] [id number] [place] Aide: Elisabeth Worthy MD Anion gap [Moles/Vol] 12 mmol/L Normal 9-17 [facility] Comment on above: Performed By: #### F TI, FE #### [address] [address] [place] Aide: Otoniel Ash MD #### TSH, LIPR, CP, GLYHGB, CDP #### [address] [place], [place] [phone] [place] Aide: Elisabeth Worthy MD AST [Catalytic activity/Vol] 40 U/L High <32 [facility] Comment on above: Performed By: #### F TI, FE #### [address] [address] [place] Aide: Otoniel Ash MD #### TSH, LIPR, CP, GLYHGB, CDP #### [address] [place], [place] [phone] [place] Aide: Elisabeth Worthy MD Bilirubin Ql (U) 0.27 mg/dL Low 0.3-1.2 [facility] Comment on above: Performed By: #### F TI, FE #### [address] [address] [place] Aide: Otoniel Ash MD #### TSH, LIPR, CP, GLYHGB, CDP #### [facility] [address] [place], [place] [phone] [place] Aide: Elisabeth Worthy MD BUN/CRE Ratio 22 High 9-20 [facility] Comment on above: Performed By: #### F TI, FE #### [address] [address] [place] Aide: Otoniel Ash MD #### TSH, LIPR, CP, GLYHGB, CDP #### [facility] [address] [place] [address] Dr. [place], [place] 1969183 [place] Aide: Elisabeth Worthy MD Calcium [Mass/Vol] 10.0 mg/dL Normal 8.6-10.4 [facility] Comment on above: Performed By: #### F TI, FE #### [address] [address] [place] Aide: Otoniel Ash MD #### TSH, LIPR, CP, GLYHGB, CDP #### [facility] [address] [place] [address] Dr. [place], [place] [phone] [place] Aide: Elisabeth Worthy MD Chloride [Moles/Vol] 105 mmol/L Normal 98-107 [facility] Comment on above: Performed By: #### F TI, FE #### [address] [address] [place] Aide: Otoniel Ash MD #### TSH, LIPR, CP, GLYHGB, CDP #### [facility] [address] [place] [address] [place], [place] [phone] [place] Aide: Elisabeth Worthy MD CO2 [Moles/Vol] 21 mmol/L Normal 20-31 [facility] Comment on above: Performed By: #### F TI, FE #### [address] [address] [place] Aide: Otoniel Ash MD #### TSH, LIPR, CP, GLYHGB, CDP #### [address] [place], [place] [phone] [place] Aide: Elisabeth Worthy MD Creatinine [Mass/Vol] 0.79 mg/dL Normal 0.50-0.90 [facility] Comment on above: Performed By: #### F TI, FE #### [address] [address] [place] Aide: Otoniel Ash MD #### TSH, LIPR, CP, GLYHGB, CDP #### [facility] [address] [place] [address] [place] [address] [place] Aide: Elisabeth Worthy MD GFR, Amer >60 Normal >60 [facility] Comment on above: Performed By: #### F TI, FE #### [address] [address] [place] Aide: Otoniel Ash MD #### TSH, LIPR, CP, GLYHGB, CDP #### [facility] [address] [place] [address] Dr. [place], [place] [phone] [place] Aide: Elisabeth Worthy MD GFR,non Amer >60 Normal >60 [facility] Comment on above: Performed By: #### F TI, FE #### [address] [address] Congressional [place] Aide: Otoniel Ash MD #### TSH, LIPR, CP, GLYHGB, CDP #### [address] [place] [address] [place] Aide: Elisabeth Worthy MD Glucose [Mass/Vol] 99 mg/dL Normal 70-99 [facility] Comment on above: Performed By: #### F TI, FE #### [address] [address] [place] Aide: Otoniel Ash MD #### TSH, LIPR, CP, GLYHGB, CDP #### [address] [place], [place] 0205183 [place] Aide: Elisabeth Worthy MD Potassium [Moles/Vol] 4.1 mmol/L Normal 3.7-5.3 [facility] Comment on above: Performed By: #### F TI, FE #### [address] [address] [place] Aide: Otoniel Ash MD #### TSH, LIPR, CP, GLYHGB, CDP #### [facility] [address] [place] [address] Dr. [place], [place] [phone] [place] Aide: Elisabeth Worthy MD Protein [Mass/Vol] 7.7 g/dL Normal 6.4-8.3 [facility] Comment on above: Performed By: #### F TI, FE #### [address] [address] [place] Aide: Otoniel Ash MD #### TSH, LIPR, CP, GLYHGB, CDP #### [address] [place], [place] [phone] [place] Aide: Elisabeth Worthy MD Sodium [Moles/Vol] 138 mmol/L Normal 135-144 [facility] Comment on above: Performed By: #### F TI, FE #### [address] [address] [place] Aide: Otoniel Ash MD #### TSH, LIPR, CP, GLYHGB, CDP #### [address] [place], [place] [phone] [place] Aide: Elisabeth Worthy MD Staging: Normal [facility] Comment on above: Result Comment: Stag e 1: Some kidney damage normal GFR Stage 2: Mild kidney damage GFR 60-89 Stage 3: Moderate kidney damage GFR 30-59 Stage 4: Severe kidney damage GFR 15-29 Stage 5: Severe kidney damage GFR <15 ESRD - chronic treatment by dialysis or transplant Performed By: #### F TI, FE #### [facility] [address] [place], [place] [id number] [place] Aide: Otoniel Ash MD #### TSH, LIPR, CP, GLYHGB, CDP #### [facility] [address] [place] [address] [place] Aide: Elisabeth Worthy MD Urea nitrogen [Mass/Vol] 17 mg/dL Normal 8- [facility] Comment on above: Performed By: #### F TI, FE #### [facility] [address] [place], [place] [id number] [place] Aide: Otoniel Ash MD #### TSH, LIPR, CP, GLYHGB, CDP #### [facility] [address] [place] [address] [place] Aide: Elisabeth Worthy MD Comprehensive Metabolic Pane [facility] 10-07-2019 Albumin [Mass/Vol] 4.5 g/dL 3.5 - 5.2 g/dL [place], [place] Albumin/Globulin [Mass ratio] 1.4 {ratio} [place] ALP [Catalytic activity/Vol] 94 U/L 35 - 104 U/L [place] ALT [Catalytic activity/Vol] 10 U/L 5 - 33 U/L [place] Anion gap [Moles/Vol] 12 mmol/L 9 - 17 mmol/L [place] AST [Catalytic activity/Vol] 40 U/L High <32 [place] Bilirubin Ql (U) 0.27 mg/dL Low 0.3 - 1.2 mg/dL [place] Bun/Cre Ratio 22 High [place] Calcium [Mass/Vol] 10.0 mg/dL 8.6 - 10. 4 mg/dL [place] Chloride [Moles/Vol] 105 mmol/L 98 - 10 7 mmol/L [place] CO2 [Moles/Vol] 21 mmol/L 20 - 31 mmol/L [place] Creatinine [Mass/Vol] 0.79 mg/dL 0.5 - 0.9 mg/dL [place] GFR >60 >60 mL/min [place] GFR Non- >60 >60 mL/min [place] Glucose [Mass/Vol] 99 mg/dL 70 - 99 mg/dL [place] Potassium [Moles/Vol] 4.1 mmol/L 3.7 - 5.3 mmol/L [place] Protein [Mass/Vol] 7.7 g/dL 6.4 - 8.3 g/dL [place] Sodium [Moles/Vol] 138 mmol/L 135 - 144 mmol/L [place] Urea nitrogen [Mass/Vol] 17 mg/dL 8 - 23 mg/dL [place] Hemoglobin A1Con 10-07-2019 HbA1c (Bld) [Mass fraction] 5.3 % Normal 4.8-5.9 [facility] Comment on above: Performed By: #### Jeramie PAUL FE #### [address] [address] [place] Aide: Otoniel Ash MD #### TSH, LIPR, CP, GLYHGB, CDP #### [facility] [address] [place] [address] [place] Aide: Elisabeth Worthy MD HbA1c (Bld) [Mass fraction] 105 mg/dL Normal [facility] Comment on above: Result Comment: The ADA and AACC recommend providing the estimated average glucose result to permit better patient understanding of their HBA1c result. Performed By: #### F TI, FE #### [place] [address] [place], [place] [id number] [place] Aide: Otoniel Ash MD #### TSH, LIPR, CP, GLYHGB, CDP #### [facility] [address] [place] [address] [place] Aide: Elisabeth Worthy MD Glucose [Mass/Vol] 105 mg/dL [place] Comment on above: The ADA and AACC rec ommend providing the estimated average glucose result to permit better patient understanding of their HBA1c result. HbA1c (Bld) [Mass fraction] 5.3 % 4.8 - 5.9 % [place] Ironon 10-07-2019 Iron [Mass/Vol] 73 ug/dL 37 - 145 ug/dL [place] Lipid Panelon 10-07-2019 Cholesterol [Mass/Vol] 229 mg/dL High <200 [place] Comment on above: Cholesterol Guidelines: <200 Desirable 200-240 Borderline >240 Undesirable Cholesterol in HDL [Mass/Vol] 67 mg/dL >40 [place] Comment on above: HDL Guidelines: <40 Undesirable 40-59 Borderline >59 Desirable Cholesterol in LDL [Mass/Vol] 127 mg/dL 0 - 130 mg/dL [place] Comment on above: LDL Guidelines: <100 Desirable 100-129 Near to/above Desirable 130-159 Borderline >159 Undesirable Direct (measured) LDL and calculated LDL are not interchangeable tests. Cholesterol in VLDL [Mass/Vol] NOT REPORTED High 1 - 30 mg/dL [place] Cholesterol.total/Cho lesterol in HDL [Mass ratio] 3.4 {ratio} <5 [place] Triglyceride [Mass/Vol] 175 mg/dL High <150 [place] Comment on above: Triglyceride Guidelines: <150 Desirable 150-199 Borderline 200-499 High >499 Very high Based on AHA Guidelines for fasting triglyceride, December 2011. Lipid Profileon 10-07-2019 Cholesterol [Mass/Vol] 229 mg/dL High <200 [facility] Comment on above: Result Comment: Cholesterol Guidelines: <200 Desirable 200-240 Borderline >240 Undesirable Performed By: #### F TI, FE #### [facility] [address] [place] [address] [place] Aide: Otoniel Ash MD #### TSH, LIPR, CP, GLYHGB, CDP #### [facility] [address] [place], [place] [phone] [place] Aide: Elisabeth Worthy MD Cholesterol in HDL [Mass/Vol] 67 mg/dL Normal >40 [facility] Comment on above: Result Comment: HDL Guidelines: <40 Undesirable 40-59 Borderline >59 Desirable Performed By: #### F TI, FE #### [place] [address] [place] [address] [place] Aide: Otoniel Ash MD #### TSH, LIPR, CP, GLYHGB, CDP #### [facility] [address] [place] [address] [place] Aide: Elisabeth Worthy MD Cholesterol in LDL [Mass/Vol] 127 mg/dL Normal 0-130 [facility] Comment on above: Result Comment: LDL Guidelines: <100 Desirable 100-129 Near to/above Desirable 130-159 Borderline >159 Undesirable Direct (measured) LDL and calculated LDL are not interchangeable tests. Performed By: #### F TI, FE #### [address] [address] [place] Aide: Otoniel Ash MD #### TSH, LIPR, CP, GLYHGB, CDP #### [address] [place] [phone] [place] Aide: Elisabeth Worthy MD Cholesterol.total/Cho lesterol in HDL [Mass ratio] 3.4 {ratio} Normal <5 [facility] Comment on above: Performed By: #### F TI, FE #### [place] [address] [place] [address] [place] Aide: Otoniel Ash MD #### TSH, LIPR, CP, GLYHGB, CDP #### [facility] [address] [place], [place] [phone] [place] Aide: Elisabeth Worthy MD Triglyceride [Mass/Vol] 175 mg/dL High <150 [facility] Comment on above: Result Comment: Triglyceride Guidelines: <150 Desirable 150-199 Borderline 200-499 High >499 Very high Based on AHA Guidelines for fasting triglyceride, December 2011. Performed By: #### F TI, FE #### [facility] [address] [place], [place] [id number] [place] Aide: Otoniel Ash MD #### TSH, LIPR, CP, GLYHGB, CDP #### [facility] [address] [place] [address] [place] Aide: Elisabeth Worthy MD Cholesterol in VLDL [Mass/Vol] NOT REPORTED Normal 04-16 [facility] Comment on above: Performed By: #### F TI, FE #### [facility] [address] [place], [place] [phone] [place] Aide: Otoniel Ash MD #### TSH, LIPR, CP, GLYHGB, CDP #### [facility] [address] [place] [address] [place] Aide: Elisabeth Worthy MD Metabolic Panelon 10-07-2019 GFR/1.73 sq M predicted among non-blacks MDRD (S/P/Bld) [Vol rate/Area] [place] Comment on above: Stage 1: Some [...] body mass. Additional eGFR calculator available at: http://www.Ther[employer].clypd/multiple_crcl_2011.htm Otheron 10-07-2019 Interpretation and review of laboratory results Abnormal [place] TSH without Reflexon 020 TSH Qn 1.12 m[IU]/L [place] Thyroid Stim. Horm.on 2019 TSH Qn 1.12 m[IU]/L Normal 0.30-5.00 [facility] Comment on above: Performed By: #### F TI, FE #### [facility] [address] [place] [address] [place] Aide: Otoniel Ash MD #### TSH, LIPR, CP, GLYHGB, CDP #### [facility] [address] [place] [address] [place] Aide: Elisabeth Worthy MD Operative Reporton 8 Operative Report MR#: [id number] [facility] Pt. Name: Xena Ewing Room #: 0C Discharge Date: Birthdate: 1955 OPERATIVE REPORTDATE OF SURGERY: 03/17/2018SURGEON: Bart Holcomb M.D.TOY MECHANIC: Carlton Galicia M.D.PREOPERATIVE DIAGNOSIS: Right recurrent [...] Dict: 03/17/2018/10:00 Finn/Chad Andino Trans: 03/17/2018 11:55 [id number]: Anamika Valle M.D. [address], [facility] [id number] [facility] POC GLUCOSE LABon 03-17-2018 Glucose mass conc 89 mg/dL Normal 70-[address] [facility] Comment on above: Performed By: #### [id number] ####[facility] [place] [address], [facility] Vital Signs Date Time Vital Sign Value Performing Clinician Facility 10-23-2024 09:44-0400 Diastolic blood pressure 78 mm[Hg] Victoria Martin MD Work Phone: [facility] 10-23-2024 09:44-0400 Systolic blood pressure 138 mm[Hg] Victoria Martin MD Work Phone: [facility] 10-01-2024 09:29-0400 Body height 165.1 cm Semaj Brown DPM Work Phone: [facility] 10-01-2024 09:29-0400 Body mass index (BMI) [Ratio] 21.47 kg/m2 Semaj Brown DPM Work Phone: [facility] 10-01-2024 09:29-0400 Body weight 58.51 kg Semaj Brown DPM Work Phone: [facility] 10-01-2024 09:29-0400 Respiratory rate 18 /min Semaj Brown DPM Work Phone: [facility] 09-10-2024 09:18-0400 Body height 165.1 cm Semaj Brown DPM Work Phone: [facility] 09-10-2024 09:18-0400 Body mass index (BMI) [Ratio] 21.47 kg/m2 Semaj Brown DPM Work Phone: [facility] 09-10-2024 09:18-0400 Body weight 58.51 kg Semaj Brown DPM Work Phone: [facility] 09-10-2024 09:18-0400 Respiratory rate 18 /min Semaj Brown DPM Work Phone: [facility] 08-27-2024 08:42-0400 Body height 165.1 cm Semaj Brown DPM Work Phone: [facility] 08-27-2024 08:42-0400 Body mass index (BMI) [Ratio] 21.47 kg/m2 Semaj Brown DPM Work Phone: [facility] 08-27-2024 08:42-0400 Body weight 58.51 kg Semaj Brown DPM Work Phone: [facility] 08-27-2024 08:42-0400 Respiratory rate 18 /min Semaj Brown DPM Work Phone: [facility] 08-13-2024 08:41-0400 Body height 165.1 cm Semaj Brown DPM Work Phone: [facility] 08-13-2024 08:41-0400 Body mass index (BMI) [Ratio] 21.47 kg/m2 Semaj Brown DPM Work Phone: [facility] 08-13-2024 08:41-0400 Body weight 58.51 kg Semaj Brown DPM Work Phone: [facility] 08-13-2024 08:41-0400 Respiratory rate 18 /min Semaj Brown DPM Work Phone: [facility] 07-30-2024 09:19-0400 Body height 165.1 cm Semaj Brown DPM Work Phone: [facility] 07-30-2024 09:19-0400 Body mass index (BMI) [Ratio] 21.47 kg/m2 Semaj Brown DPM Work Phone: [facility] 07-30-2024 09:19-0400 Body weight 58.51 kg Semaj Brown DPM Work Phone: [facility] 07-30-2024 09:19-0400 Respiratory rate 16 /min Semaj Brown DPM Work Phone: [facility] 07-09-2024 08:48-0400 Body height 165.1 cm Semaj Brown DPM Work Phone: [facility] 07-09-2024 08:48-0400 Body mass index (BMI) [Ratio] 21.47 kg/m2 Semaj Brown DPM Work Phone: [facility] 07-09-2024 08:48-0400 Body weight 58.51 kg Semaj Brown DPM Work Phone: [facility] 07-09-2024 08:48-0400 Respiratory rate 18 /min Semaj Brown DPM Work Phone: [facility] 06-01-2024 11:12-0400 Body mass index (BMI) [Ratio] 21.6 kg/m2 Severo Patricio DO Work Phone: [facility] 06-01-2024 11:12-0400 Body weight 58.88 kg Severo Patricio DO Work Phone: [facility] 06-01-2024 11:12-0400 Diastolic blood pressure 74 mm[Hg] Severo Patricio DO Work Phone: [facility] 06-01-2024 11:12-0400 Systolic blood pressure 124 mm[Hg] Severo Patricio DO Work Phone: [facility] 05-28-2024 11:26-0400 Body height 165.1 cm Semaj Brown DPM Work Phone: [facility] 05-28-2024 11:26-0400 Body mass index (BMI) [Ratio] 21.47 kg/m2 Semaj Brown DPM Work Phone: [facility] 05-28-2024 11:26-0400 Body weight 58.51 kg Semaj Brown DPM Work Phone: [facility] 05-28-2024 11:26-0400 Respiratory rate 18 /min Semaj Brown DPM Work Phone: [facility] 04-09-2024 10:48-0500 Body height 165.1 cm Semaj Brown DPM Work Phone: [facility] 04-09-2024 10:48-0500 Body mass index (BMI) [Ratio] 21.47 kg/m2 Semaj Brown DPM Work Phone: [facility] 04-09-2024 10:48-0500 Body weight 58.51 kg Semaj Brown DPM Work Phone: [facility] 04-09-2024 10:48-0500 Respiratory rate 18 /min Semaj Sanchez DPM Work Phone: [facility] 03-19-2024 15:44-0500 Body height 165.1 cm Semaj Sanchez DPM Work Phone: [facility] 03-19-2024 15:44-0500 Body mass index (BMI) [Ratio] 21.47 kg/m2 Semaj Sanchez DPM Work Phone: [facility] 03-19-2024 15:44-0500 Body weight 58.51 kg Semaj Sanchez DPM Work Phone: [facility] 03-19-2024 15:44-0500 Respiratory rate 18 /min Semaj Sanchez DPM Work Phone: [facility] 02-05-2024 14:03-0500 Blood Pressure Location Rubén NILL [facility] 02-05-2024 14:03-0500 Diastolic blood pressure 84 mm[Hg] Rubén NILL [facility] 02-05-2024 14:03-0500 Heart rate 72 /min Rubén NILL [facility] 02-05-2024 14:03-0500 Respiratory rate 16 /min Rubén NILL [facility] 02-05-2024 14:03-0500 Systolic blood pressure 132 mm[Hg] Rubén NILL [facility] 10-23-2022 11:13-0400 Body height 165.1 cm Claire West MD Work Phone: [facility] 10-23-2022 11:13-0400 Body weight 73.07 kg Claire West MD Work Phone: [facility] 10-23-2022 11:13-0400 Diastolic blood pressure 71 mm[Hg] Claire West MD Work Phone: [facility] 10-23-2022 11:130400 Heart rate 77 /min Claire West MD Work Phone: [facility] 10-23-2022 11:130400 Systolic blood pressure 125 mm[Hg] Claire West MD Work Phone: [facility] [facility] En[facility] Encounter Date Encounter Type Care Provider Facility Start: 10-23-2024 End: 10-23-2024 Bamboo flowsvandana Martin MD [facility] Start: 10-23-2024 End: 10-23-2024 Bamboo daniel Martin MD [facility] Start: 10-23-2024 End: 10-23-2024 Patient encounter procedure Victoria Martin MD Work Phone: [facility] Comment on above: 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 Start: 10-23-2024 End: 10-23-2024 ambulatory VICTORIA MARTIN Not Available Start: 10-19-2024 End: 10-19-2024 ambulatory EVERETT SILVA Not Available Start: 10-19-2024 End: 10-19-2024 Patient encounter procedure Everett Silva INSTALLATION & MAINTENANCE EXECUTIVE Work Phone: [facility] Comment on [...] 09-16-2024 Bamboo flowsvandana Amaya MD Work Phone: [facility] Start: 09-16-2024 End: 09-16-2024 Bamedmund Amaya MD Work Phone: [facility] Start: 09-10-2024 End: 09-10-2024 Bamboo flowsheet Semaj Sanchez DPM Work Phone: [facility] Start: 09-10-2024 End: 09-10-2024 Bamboo flowsheet Semaj Sanchez DPM Work Phone: [facility] Start: 09-10-2024 End: 09-10-2024 ambulatory SEMAJ SANCHEZ Not Available Start: 09-10-2024 End: 09-10-2024 Office outpatient visit 15 minutes Semaj Sanchez DPM Work Phone: [facility] Comment on above: Verruca [...] Start: 09-09-2024 End: 09-09-2024 ambulatory ANAMIKA VALLE Facility:[facility] Start: 08-27-2024 End: 08-27-2024 Bamboo flowsheet [...] Bamboo flowsheet Semaj Sanchez DPM Work Phone: [facility] Start: 05-28-2024 End: 05-28-2024 Bamboo flowsheet Semaj Sanchez DPM Work Phone: [facility] Start: 05-28-2024 End: 05-28-2024 ambulatory SEMAJ SANCHEZ Not Available Start: 05-28-2024 End: 05-28-2024 Patient encounter procedure Semaj Sanchez DPM Work Phone: [facility] Comment on above: 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 (Primary Dx); Verruca plantaris; Foot pain, right; Foot pain, left Start: 04-15-2024 End: 04-15-2024 ambulatory Rubén MANUEL Facility:[id number] Start: 04-09-2024 End: 04-09-2024 Bamboo flowsheet Semaj Sanchez DPM Work Phone: [facility] Start: 04-09-2024 End: 04-09-2024 Bamboo flowsheet Semaj Sanchez DPM Work Phone: [facility] Start: 04-09-2024 End: 04-09-2024 Patient encounter procedure Semaj Sanchez DPM Work Phone: [facility] Comment on above: Verruca plantaris (P rimary Dx); Foot pain, right; Foot pain, left Start: 04-09-2024 End: 04-09-2024 ambulatory SEMAJ SANCHEZ Not Available Start: 03-19-2024 End: 03-19-2024 Office outpatient visit 15 minutes Semaj Sanchez DPM Work Phone: [facility] Comment on above: Neoplasm of [...] Start: 02-06-2024 End: 02-06-2024 ambulatory GEORGES BURNS Facility[place] Start: 02-06-2024 End: 02-06-[address] GEORGES BURNS [facility] Start: 02-05-2024 End: 02-05-2024 ambulatory Rubén MANUEL Facility:[facility] Start: 02-05-2024 End: 02-05-2024 Patient encounter procedure Rubén MANUEL [facility] Start: 12-27-2023 End: 12-27-2023 Patient encounter procedure MD Anamika Valle Work Phone: [facility] Work Phone: Start: 12-27-2023 End: 12-27-2023 ambulatory MD Anamika Valle Work Phone: [facility] Work Phone: Start: 12-17-2023 End: 12-17-2023 Bamboo flowsheet Shirin Escobar CHAIN REPAIRER-MAINTENANCE CLERK Work Phone: [facility] Start: 12-17-2023 End: 12-17-2023 Bamboo flowsheet Shirin Escobar CHAIN REPAIRER-MAINTENANCE CLERK Work Phone: [facility] Start: 12-17-2023 End: 12-17-2023 Office outpatient new 20 minutes Shirin A Felter CHAIN REPAIRER-MAINTENANCE CLERK Work Phone: [facility] Comment on above: Other nonthrombocyto penic purpura (CMS/HCC) (Primary Dx); Actinic keratosis Start: 12-17-2023 End: 12-17-2023 ambulatory SHIRIN A FELTER Not Available Start: 12-24-2022 End: 12-24-2022 ambulatory MD Anamika Valle Work Phone: [facility] Work Phone: Start: 12-24-2022 End: 12-24-2022 Patient encounter procedure MD [facility]ika Val[facility] Work [facility]: Start: 10-23-2022 End: 10-23-2022 Patient encounter procedure Claire West MD Work Phone: General Surgery Comment on above: Ventral hernia witho ut obstruction or gangrene (Primary Dx) Start: 04-19-2022 End: 04-19-2022 ambulatory DESTINI DOOLEY Facility:[facility] Start: 01-05-2022 End: 01-06-[address] ANAMIKA VALLE Facility:[facility] Start: 12-21-2021 End: 12-21-2021 ambulatory MD Anamika Valle Work Phone: [facility] Work Phone: Start: 12-21-2021 End: 12-21-2021 Patient encounter procedure MD [facility]amika Valle [facility] Start: 11-09-2021 End: 11-10-[address] ANAMIKA VALLE Facility:[facility] Start: 08-31-2021 End: 08-31-[address] ANAMIKA VALLE Facility:[facility] Start: 06-29-2021 End: 06-29-[address] ANAMIKA VALLE Facility:[facility] Start: 06-21-2021 End: 06-22-[address] ANAMIKA VALLE Facility:[facility] Start: 06-08-2021 End: 06-09-[address] ANAMIKA VALLE Facility: Start: 10-13-2019 End: 10-14-2019 Patient encounter procedure [facility] Start: 10-13-2019 End: 10-13-2019 Subsequent hospital visit by physician Anamika Valle [facility] Start: 10-07-2019 End: 10-08-2019 Patient encounter procedure [facility] Start: 10-07-2019 End: 10-07-2019 Subsequent hospital visit by physician [facility] Drawing Room [facility] Comment on above: Arrived Start: 03-17-2018 End: 03-18-2018 Patient encounter procedure GIOVANI HOLCOMB Facility:[facility] Start: 02-14-2018 End: 02-15-2018 Patient encounter procedure DEFAULT PHYSICIAN Facility:[facility] Procedures Date Procedure Procedure Detail Performing Clinician Start: 10-23-2024 SKIN REPAIR Victoria manuel MD Work Phone: Start: 10-23-2024 MOHS SURGERY Victoria manuel MD Work Phone: Start: 09-16-2024 SKIN / NAIL BIOPSY Varinder Amaya MD Work Phone: Start: 12-27-2023 Screening mammograph y of bilateral breasts MD Anamika Valle Work Phone: Start: 12-17-2023 CRYOTHERAPY SKIN LESION Shirin A Felter CHAIN REPAIRER-MAINTENANCE CLERK Work Phone: Start: 12-24-2022 Screening mammograph y of bilateral breasts MD Anamika Valle Work Phone: Start: 04-19-2022 Mammography Shirin Fe lter CHAIN REPAIRER-MAINTENANCE CLERK Work Phone: Start: 12-21-2021 Screening mammograph y [...] Thyroid horm uptk/th yroid hormone binding ratio nAamika Valle Work Phone: Start: 10-07-2019 Lipid 1996 [...] RSV Vaccine (1 - 1-dose 75+ series) [facility] Start: 06-01-2028 DTaP/Tdap/Td vaccine (2 - Td) DTaP/Tdap/Td vaccine (2 - Td) [facility] [place] Start: 06-01-2028 Urine microalbumin profile DTaP,Tdap,Td Vaccine (2 - Td or Tdap) [facility] Start: 06-03-2025 End: 06-03-2025 Patient encounter procedure [facility] Start: 11-16-2024 Influenza vaccination [facility] Start: 11-06-2024 End: 11-06-2024 Patient encounter procedure 11/06/2024 10:30 AM EDT Office Visit [facility] [address] [place] [address] Victoria Martin MD [address] [place] [address] [facility] Start: 10-23-2024 End: 10-23-2024 Patient encounter procedure [facility] Comment on above: Arrived Start: 10-06-2024 Lipid panel [facility] Start: 10-01-2024 End: 10-01-2024 Patient encounter procedure 10/01/2024 9:10 AM EDT Office Visit [facility] [address] [place] [address] Semaj Sanchez DPM [address] [facility] [address] [place] [address] [facility] Start: 09-16-2024 End: 09-16-2024 Patient encounter procedure 09/16/2024 2:35 PM EDT Office Visit [facility] [address] [place] [address] Marianna Amaya MD [address] [place] [address] Arrived [facility] Comment on above: Arrived Start: 08-27-2024 End: 08-27-2024 Patient encounter procedure 08/27/2024 8:50 AM EDT Office Visit [facility] [address] [facility] [address] [place] [address] Semaj Sanchez, DPM [address] [address] Neoplasm of uncertain behavior of skin (Primary Dx) [facility] Comment on above: Neoplasm of uncertain behavior of skin ( Primary Dx) Start: 08-13-2024 End: 08-13-2024 Patient encounter procedure 08/13/2024 8:40 AM EDT Office Visit [facility] [address] [facility] [address] [place] [address] Semaj Sanchez, DPM [address] [address] Neoplasm of uncertain behavior of skin (Primary Dx) [facility] Comment on above: Neoplasm of uncertain behavior of skin ( Primary Dx) Start: 08-06-2024 End: 08-06-2024 Patient encounter procedure 08/06/2024 11:20 AM EDT Procedure Visit [facility] [address] [facility] [address] [place] [address] Semaj Sanchez, DPM [address] [address] [facility] Start: 07-30-2024 End: 07-30-2024 Patient encounter procedure 07/30/2024 9:30 AM EDT Office Visit [facility] [address] [facility] [address] [place] [address] Semaj Sanchez, DPM [address] [address] Verruca plantaris (Primary Dx); Foot pain, right; Foot pain, left [facility] Comment on above: Verruca plantaris (Primary Dx); Foot pain, right; Foot pain, left Start: 07-09-2024 End: 07-09-2024 Patient encounter procedure 07/09/2024 8:50 AM EDT Office Visit [facility] [address] [facility] [address] [place] [phone] Semaj Sanchez DPM [address] [address] Arrived [facility] Comment on above: Arrived Start: 06-11-2024 End: 06-11-2024 Patient encounter procedure 06/11/2024 11:30 AM EDT Office Visit [facility] [address] [facility] [address] [place] [phone] Semaj Sanchez DPM [address] [address] [facility] Start: 06-01-2024 End: 06-01-2025 DXA Skeletal system Views for bone density DEXA bone density Imaging Routine Postmenopausal state Expected: 06/01/2024 (Approximate), Expires: 06/01/2025 [facility] Comment on above: Expected: 06/01/2024 (Approximate), Expi res: 06/01/2025 Start: 06-01-2024 End: 08-01-2025 MG Breast - bilateral Screening Bilateral screening mammogram Imaging Routine Breast cancer screening by mammogram Expected: 06/01/2024, Expires: 08/01/2025 [facility] Work Phone: Comment on above: Expected: 06/01/2024, Expires: Start: 06-01-2024 End: 06-01-2024 Patient encounter procedure [facility] Comment on above: Arrived Start: 05-28-2024 End: 05-28-2024 Patient encounter procedure 05/28/2024 11:00 AM EDT Procedure Visit [facility] [address] [facility] [address] [place] [phone] Semaj Sanchez DPM [address] [address] [facility] Start: 04-09-2024 End: 04-09-2024 Patient encounter procedure 04/09/2024 11:00 AM EST Office Visit [facility] [address] [facility] [address] [place] [address] Semaj Sanchez DPM [address] [address] Verruca plantaris (Primary Dx); Foot pain, right; Foot pain, left [facility] Comment on above: Verruca plantaris (Primary Dx); Foot pain, right; Foot pain, left Start: 03-19-2024 End: 03-19-2024 Patient encounter procedure 03/19/2024 3:50 PM EST Office Visit [facility] [address] [facility] [address] [place] [address] Semaj Sanchez DPM [address] [address] [facility] Start: 03-18-2024 Advance Directive Discussion Advance Directive Discussion [facility] Start: 03-18-2024 Medicare Advantage Annual Wellness Visit Medicare Advantage Annual Wellness Visit [facility] Start: 12-17-2023 End: 12-17-2023 Patient encounter procedure 12/17/2023 11:05 AM EDT Office Visit [facility] [address] [place] [address] Shirin Escobar, CHAIN REPAIRER-MAINTENANCE CLERK [address] [place] [address] Arrived [facility] Comment on above: Arrived Start: 11-17-2023 Covid-19 Vaccine () Covid-19 Vaccine () [facility] Start: 11-17-2023 Influenza vaccination Influenza Vaccine (#1) [facility] Start: 04-19-2023 Screening for malignant neoplasm of breast [facility] Start: 11-16-2022 Influenza vaccination INFLUENZA (#1) [facility] Start: 10-06-2022 Diabetes Screening Diabetes Screening [facility] Start: 04-21-2022 COVID-19 VACCINE (5 - Pfizer series) COVID-19 VACCINE (5 - Pfizer series) [facility] Start: 03-18-2022 ADVANCE DIRECTIVE DISCUSSION ADVANCE DIRECTIVE DISCUSSION [facility] Start: 03-18-2022 DEPRESSION ASSESSMENT DEPRESSION ASSESSMENT [facility] Start: 2021 BONE DENSITY BONE DENSITY [facility] Start: 2021 Pneumococcal Vaccine: 65+ Years (2 of 2 - PCV) Pneumococcal Vaccine: 65+ Years (2 of 2 - PCV) [facility] Start: 2021 Screening for osteoporosis Bone Density Screening [facility] Start: 11-17-2019 Influenza vaccination Flu vaccine (#1) [place], [place] Start: 06-27-2016 Pneumococcal Vaccine: 50+ (2 of 2 - PCV) Pneumococcal Vaccine: 50+ (2 of 2 - PCV) [facility] Start: 06-27-2016 Pneumococcal Vaccine: 65+ Years (2 of 2 - PCV) Pneumococcal Vaccine: 65+ Years (2 of 2 - PCV) [facility] Start: 2006 Influenza vaccination LUNG CANCER SCREENING [facility] Start: 2006 Screening for malignant neoplasm of breast Breast cancer screen [place], [place] Start: 2006 Screening for malignant neoplasm of colon Colon cancer screen colonoscopy [place], [place] Start: 2006 Screening for malignant neoplasm of lung Lung Cancer Screening [facility] Start: 2006 Shingles Vaccine (1 of 2) Shingles Vaccine (1 of 2) [place], [place] Start: 2006 SHINGRIX VACCINE (1 of 2) SHINGRIX VACCINE (1 of 2) [facility] Start: 2001 COLOGUARD (FIT-DNA) COLOGUARD (FIT-DNA) [facility] Start: 2001 Colonoscopy COLONOSCOPY [facility] Start: 2001 COLORECTAL CANCER SCREENING COLORECTAL CANCER SCREENING [facility] Start: [address] COLONOGRAPHY [facility] Start: 2001 DIABETES SCREEN DIABETES SCREEN [facility] Start: 2001 FECAL OCCULT BLOOD FECAL OCCULT BLOOD [facility] Start: 2001 LIPID SCREEN LIPID SCREEN [facility] Start: 2001 Screening for malignant neoplasm of colon [facility] Start: 2001 SIGMOIDOSCOPY SIGMOIDOSCOPY [facility] Start: 1996 Lipid panel Lipid screen [place], [place] Start: 1996 Mammography MAMMOGRAM [facility] Start: 1996 Screening for malignant neoplasm of breast Mammogram Screening [facility] Start: 1977 Screening for malignant neoplasm of cervix Cervical cancer screen [place], [place] Start: 12-12-1975 Urine microalbumin profile DTAP,TDAP,TD (1 - Tdap) [facility] Start: 1974 Anxiety Screening Anxiety Screening [facility] Start: 1974 Depression Screening Depression Screening [facility] Start: 1974 HEPATITIS C SCREENING HEPATITIS C SCREENING [facility] Start: 1974 Hepatitis C screening Hepatitis C Screening [facility] Start: 1974 HIV SCREENING HIV SCREENING [facility] Start: 12-12-1971 HIV screening HIV screen [place], [place] Start: 1962 PNEUMOCOCCAL: 65+ (1 - PCV) PNEUMOCOCCAL: 65+ (1 - PCV) [facility] Start: 1956 Hepatitis C screening Hepatitis C screen [place], [place] Start: 1956 Screening for malignant neoplasm of colon [facility] Dermatopathology exam Dermatopat hology exam Pathology and Cytology Timed Neoplasm of unspecified behavior of bone, soft tissue, and skin Release Upon Ordering for 1 Occurrences starting 09/16/2024 [facility] Work Phone: Comment on above: Release Upon Ordering for 1 Occurrences starting 09/16/2024 THIN PREP TIS PAP AN D HR HPV DNA THIN PREP TIS PAP AND HR HPV DNA Pathology and Cytology Routine Well woman exam with routine gynecological exam Ordered: 06/01/2024 [facility] Comment on above: Ordered: 06/01/2024 End: 09-10-2025 [facility] Audiology Routine Tinnitus, unspecified laterality Mixed conductive and sensorineural hearing loss of left ear with restricted hearing of right ear 1 Occurrences starting 09/09/2024 until 09/10/2025 [facility] Work Phone: Comment on above: 1 Occurrences starting 09/09/2024 until 09/10/2025 Immunizations Immunization Date Immunization Notes Care Provider Angie stacy 12-19-2021 SARS-CoV-2 (COVID-19 ) [id number] Rubén NILL [facility] 04-04-2021 SARS-CoV-2 (COVID-19 ) mRNA BNT-162b2 vax Rubén NILL [facility] 12-16-2020 SARS-CoV-2 (COVID-19 ) mRNA BNT-162b2 vax Rubén NILL [facility] 11-28-2020 SARS-CoV-2 (COVID-19 ) mRNA BNT-162b2 vax Rubén NILL [facility] 06-05-2018 influenza virus vaccine, unspecified formulation [facility]in [facility]reese [facility] Work Phone: [facility] 06-01-2018 tetanus toxoid, redu tu diphtheria toxoid, and acellular pertussis vaccine, adsorbed [facility] Room [place], [place] Payers Date Payer Category Payer Self-pay [id number] 2023 Medicare (Managed Care) [id number]. [id number] 2023 Medicare [id number] 2022 Medicare [id number] 2019 Unknown [id number] 2019 Unknown [employer] CHUCK - EXCHANGE [id number] 2019-Present [phone] [address] [place] [address] [id number] 1959 Medicare [id number] 1959 Medicare [id number] 1959 Private Health Insurance [facility] [id number] 1956 Unknown [id number] 2.16.840.1.891352.3.579.2.6 47 1956 Unknown [id number] 2.16.840.1.263848.3.579.2.6 47 1956 Unknown [id number] 2.16.840.1.851897.3.579.2.1 73 1956 Unknown [id number] 2.16.840.1.291067.3.579.2.1 73 1956 Unknown [id number] 2.16.840.1.513550.3.579.2.5 93 1956 Unknown [id number] 2.16.840.1.510649.3.579.2.5 93 1956 Unknown [id number] 2.16.840.1.454683.3.579.2.5 93 1956 Unknown [id number] 2.16.840.1.924475.3.579.2.5 93 1956 Unknown [id number] 2.16.840.1.273575.3.579.2.5 93 1956 Unknown [id number] 2.16.840.1.687933.3.579.2.5 93 1956 Unknown [id number] 2.16.840.1.222853.3.579.2.5 93 1956 Unknown [id number] 2.16.840.1.041585.3.579.2.7 27 1956 Unknown [id number] 2.16.840.1.637277.3.579.2.7 1956 Unknown [id number] 2.16.840.1.150874.3.579.2.7 27 1956 Unknown [id number] 2.16.840.1.040942.3.579.2.1 259 1956 Unknown [id number] 2.16.840.1.943524.3.579.2.1 259 1956 Unknown [id number] 2.16.840.1.090601.3.579.2.1 259 1956 Unknown [id number] 2.16.840.1.361306.3.579.2.1 259 1956 Unknown [id number] 2.16.840.1.552383.3.579.2.1 259 1956 Unknown [id number] 2.16.840.1.699638.3.579.2.1 1956 Unknown [id number] 2.16.840.1.441936.3.579.2.1 259 1956 Unknown [id number] 2.16.840.1.933955.3.579.2.1 259 1956 Unknown [id number] 2.16.840.1.889282.3.579.2.1 259 1956 Unknown [id number] 2.16.840.1.314184.3.579.2.1 259 1956 Unknown [id number] 2.16.840.1.438292.3.579.2.1 259 1956 Unknown [id number] 2.16.840.1.839019.3.579.2.1 259 1956 Unknown [id number] 2.16.840.1.353234.3.579.2.1 259 1956 Unknown [id number] 2.16.840.1.423619.3.579.2.1 259 Medicare Medicare [id number] Unknown [id number] Unknown Unknown HCAP/HFA/FAP Active [id number] Unknown [id number] 2.16.840.1.294577.3.579.2.5 31 Social History Date Type Detail Facility Start: 05-31-2018 End: 02-05-2024 Tobacco smoking status NHIS Former smoker [facility] Start: 05-31-2018 Alcohol intake Ex-drinker (finding) [place], [place] Start: 1955 Sex Assigned At Not on file M [place], [place] Exposure to SARS-CoV -2 (event) Not sure [place], [place] Start: 1955 Sex Assigned At Female F [facility] Start: 10-23-2022 Tobacco smoking stat us NHIS Smokes tobacco daily [facility] History of tobacco use Cigarette Smoker [facility] Start: 10-23-2022 End: 10-23-2024 Cigarettes smoked current (pack per day) - Reported 1 [facility] Start: 10-23-2022 End: 03-19-2024 Tobacco use and exposure User of smokeless tobacco [facility] Start: 10-23-2022 End: 10-23-2024 Alcohol intake Lifetime non-drinker (finding) [facility] Start: 10-23-2022 End: 10-23-2024 [facility] Start: 10-23-2022 Tobacco Comment Vape Jose Armandoa [facility] Start: 09-21-2022 End: 03-19-2024 Tobacco smoking status NHIS Never smoked tobacco [facility] Start: 04-27-2023 Alcohol Comment Caffine intake : 2-3 cups per day, coffee; tea [facility] National Score (1-10 0), lower number is lower risk 94 [facility] Functional Status Date Assessment Result Facility 02-05-2024 Functional Status N/A [facility] General Surgery [place] Clinical Notes 08-31-2021 to 10-23-2024 Victoria Martin [...] CARCINOMA (BCC) OF UPPER BACK Mid Back [place] macule at biopsy site Re-measured today at 1.3 x 1.0 cm Mohs surgery Consent obtained: written (The rationale for Mohs as well as the risks, benefits, and alternatives. The risks of infection, scarring, bleeding, prolonged wound healing, incomplete removal, allergy to anesthesia or meds, nerve injury, and recurrence were addressed.) [place] Protocol: Procedure explained and questions answered to patient or proxy's satisfaction: Yes Test results available and properly labeled: Yes Pathology report reviewed: Yes Photo or diagram used for site identification: Yes Site/side marked: Yes Anesthesia: Anesthesia method: local infiltration Local anesthetic: lidocaine 1% WITH epi and sodium bicarbonate Procedure Details: Biopsy accession number: [id number] Biopsy lab: [facility] Date of biopsy: 09/16/2024 Frozen section biopsy [...] 14 day S/R documented in this encounter [facility] 10-19-2024 History of Present illness Narrative Reason for Appointment: Patient ID: Xena Ewing is a 68 y.o. female who presents for No chief complaint on file. Patient presents today via telephone call for a telehealth appointment. Patients Phone #: [phone] (mobile) Date: 10/19/2024 Time: 10:14 AM of [...] Everett Silva NP documented in this encounter [facility] 10-01-2024 History of Present illness Narrative Patient: [...] Sanchez DPM documented in this encounter [facility] 09-16-2024 History of Present illness Narrative Images [...] BONE, SOFT TISSUE, AND SKIN Mid Back [place] papule Lesion biopsy Type of biopsy: tangential [...] new/changing lesions documented in this encounter [facility] 09-10-2024 History of Present illness Narrative Patient: [...] Sanchez DPM documented in this encounter [facility] 09-09-2024 Note HNO ID: [id number] Author: ALEJANDRA WESTON MD Service: ? Author Type: Physician Type: Progress Notes Filed: 09/09/2024 16:46 Note Text: SECTION OF OTOLOGY, NEUROTOLOGY AND LATERAL SKULL BASE SURGERY Department of Otolaryngology - Head and Neck Surgery [facility] September 09, 2024 09/09/2024 Xena Ewing [...] Tobacco Use: High Risk (08/27/2024) Received from [facility] Patient History Smoking Tobacco Use: Never Smokeless [...] side and sensorineu (more content not included)... [facility] 09-09-2024 History of Present illness Narrative Images from the original note were not included. SECTION OF OTOLOGY, NEUROTOLOGY AND LATERAL SKULL BASE SURGERY Department of Otolaryngology - Head and Neck Surgery [facility] [place], [facility] September 09, 2024 09/09/2024 Xena Ewing is [...] Tobacco Use: High Risk (08/27/2024) Received from [facility] Patient History Smoking Tobacco Use: Never Smokeless [...] Referred to [facility] for comprehensive evaluation and treatment [...] MD Otology/Neurotology/Lateral Skull-Base Surgery Head and Neck [place] [facility] Medical Decision Making: Problems: Moderate: New problem with uncertain prognosis Data: Unique source(s) for external note(s) reviewed: 1 Unique test result(s) reviewed: 1 Unique test(s) ordered: 1 Risk: Minimal: Minimal risk from testing/treatment Medical Decision Making Level: 4 - Moderate documented in this encounter [facility] 08-27-2024 History of Present illness [...] Sanchez DPM documented in this encounter [facility] 08-13-2024 History of Present illness Narrative Patient: [...] care. Right foot lesion specimen sent to [facility] for pathology report Semaj Sanchez DPM documented in this encounter [facility] 07-09-2024 History of Present illness Narrative Patient: [...] Sanchez DPM documented in this encounter [facility] 06-01-2024 History of Present illness Narrative Reason [...] nursing note reviewed. Exam conducted with a senior mechanical development engineer present. Vitals: Estimated body mass index is [...] Curry DO documented in this encounter [facility] 05-28-2024 History of Present illness Narrative Patient: [...] Sanchez DPM documented in this encounter [facility] 04-09-2024 History of Present illness Narrative Patient: [...] Sanchez DPM documented in this encounter [facility] 03-19-2024 History of Present illness Narrative Patient: [...] pathological diagnosis of specimen. Patient may take [id number] NSAID p.r.n. for pain Application of salinocaine [...] Sanchez DPM documented in this encounter [facility] 02-06-2024 Evaluation + Plan note Diagnostic Tests Pendingvon Willebrand Factor (vWF) Ag 02/06/24Lupus Anticoagulant 02/06/24vWF Activity 02/06/24 [facility] 02-05-2024 Note General Surgery Offi ce/Clinic [...] Father. Immunizations Vaccine Date Status SARS-CoV-2 (COVID-19) [id number] 12/19/2021 Recorded SARS-CoV-2 ( (more content not [...] limited to risks of scarring, darker or community relations liaison pigmentary changes, recurrence, incomplete removal and infection. [...] new/changing lesions documented in this encounter [facility] 10-23-2022 History of Present illness Narrative GENERAL [...] Bariatric Surgery cc: Referring provider Anamika Valle [address] [place] [id number] Medical Decision Making: Problems: Low: Stable chronic illness Data: Independent interpretation of test from other physician/QHCP Medical Decision Making Level: 3 - Low documented in this encounter [facility] 08-31-2021 Note OPERATIVE NOTE OPERATION DATE: 08/31/2021 PREOPERATIVE DIAGNOSIS: Acute appendicitis. POSTOPERATIVE DIAGNOSIS: Acute appendicitis. PROCEDURE PERFORMED: Laparoscopic appendectomy. SURGEON: Elisabeth Rehman M.D. TOY MECHANIC: PINA Corona ANESTHESIA: General, 0.5% Marcaine [...] taken to the PACU in fair condition. [facility] Signed and Approved by: DR ELISABETH REHMAN . 09/15/2021 06:33:00 [facility] Evaluation + Plan note No data available for this section [facility] [place] Evaluation note No assessment inform ation available [facility] Work Phone: Evaluation note Diagnosis Ventral hernia without obstruction or gangrene- Primary Ventral hernia, unspecified, without mention of obstruction or gangrene [facility] Other nonthrombocytopenic purpura (CMS/HCC)- Primary Actinic keratosis documented in this encounter [facility]* Diagnosis Neoplasm of uncertain behavior [...] unspecified laterality- Primary [facility] Neoplasm of uncertain behavior of skin- Primary Verruca plantaris Plantar wart Foot pain, left Pain in soft tissues of limb [facility] Diagnosis 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 Tinnitus, unspecified laterality Temporomandibular joint disorder Temporomandibular joint disorders, unspecified [facility] Verruca plantaris- Primary [...] follow-up Semaj Sanchez DPM [facility] No data available for this section [facility] Progress note No data available for this section [facility] Summary Purpose Family History No Family [...] FoundDocuments on File Type Date Recorded 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 Expl anation Advance Directives and Living Will Power of Epic [facility] Advance Directive Response Recorded Date/ Time Advance Directives No June 06, 2 018 3:52pm Chief Complaint and Reason for Visit Chief Complaint Screening Additional Source Comments INFORMATION SOURCE (unrecogn ized section and content) DATE CREATED AUTHOR 03/21/2018 [facility] DATE CREATED AUTHOR AUTHOR'S ORGANIZ ATION 10/14/2019 [facility] DATE CREATED AUTHOR AUTHOR'S ORGANIZ ATION 04/27/2022 [facility] DATE CREATED AUTHOR AUTHOR'S ORGANIZ ATION 01/03/2024 [facility] DATE CREATED AUTHOR AUTHOR'S ORGANIZ ATION 02/08/2024 [facility] DATE CREATED AUTHOR AUTHOR'S ORGANIZ ATION 02/13/2024 [facility]rary [facility] DATE CREATED AUTHOR AUTHOR'S ORGANIZ ATION 04/19/2024 Holly [facility]den [facility] DATE CREATED AUTHOR AUTHOR'S ORGANIZ ATION 09/10/2024 [facility] DATE CREATED AUTHOR AUTHOR'S ORGANIZ ATION 10/25/2024 [facility] Care Teams (unrecognized sec tion and content) Team Status: Active Member Role Status Dates Anamika Valle MD Primary Care Provider Active Team Status: Inactive Member Role Status Dates Anamika Valle MD Primary Care Provider Active Referral Self Attending Provider Active Shredded Filler Hopper Feeder Relationship Specialty Start Date End Date Anamika Valle MD PCP - General 10/24/04 Anamika Valle MD [address] [place] [address] Referring Family Medicine 10/05/22 Shredded Filler Hopper Feeder Relationship Specialty Start Date End Date Anamika Valle MD [address] [place] [address] PCP - General Family Medicine 09/21/22 Shredded Filler Hopper Feeder Relationship Specialty Start Date End Date Anamika Valle MD [address] [place] [address] PCP - General Family Medicine 09/21/22 Team Status: Inactive Member Role Status Dates Anamika Valle MD Primary Care Provide r, Referring Provider Active Start: December 27, 2023 End: December 27, 2023 Referral Self Attending Provider Active Start: O ctober 2023 End: December 27, 2023 Shredded Filler Hopper Feeder Relationship Specialty Start Date End Date Anamika Valle MD [address] [facility] [place] [address] PCP - General Family Medicine 09/21/22 Shredded Filler Hopper Feeder Relationship Specialty Start Date End Date Anamika Valle MD [address] [facility] [place] [address] PCP - General Family Medicine 09/21/22 Shredded Filler Hopper Feeder Relationship Specialty Start Date End Date Anamika Valle MD [address] [facility], [id number] PCP - General Family Medicine 09/21/22 Shredded Filler Hopper Feeder Relationship Specialty Start Date End Date Anamika Valle MD [address] [facility], [id number] PCP - General Family Medicine 09/21/22 Shredded Filler Hopper Feeder Relationship Specialty Start Date End Date Anamika Valle MD [address] [facility], [id number] PCP - General Family Medicine 09/21/22 Shredded Filler Hopper Feeder Relationship Specialty Start Date End Date Anamika Valle MD [address] [facility] [place] [address] PCP - General Family Medicine 09/21/22 Shredded Filler Hopper Feeder Relationship Specialty Start Date End Date Anamika Valle MD [address] [facility] [place] [address] PCP - General Family Medicine 09/21/22 Shredded Filler Hopper Feeder Relationship Specialty Start Date End Date Anamika Valle MD [address] [facility] [place] [address] PCP - General Family Medicine 09/21/22 Shredded Filler Hopper Feeder Relationship Specialty Start Date End Date Anamika Valle MD PCP - General 10/24/04 Anamika Valle MD [address] [place] [address] Referring Family Medicine 10/05/22 Shredded Filler Hopper Feeder Relationship Specialty Start Date End Date Anamika Valle MD PCP - General 10/24/04 Anamika Valle MD [address] [place] [address] Referring Family Medicine 10/05/22 Shredded Filler Hopper Feeder Relationship Specialty Start Date End Date Anamika Valle MD [address] [place] [address] PCP - General Family Medicine 09/21/22 Goals [...] or prosecute any alcohol or drug abuse patient.[facility] Hospital[facility] the event this information is protected by the Federal Confidentiality of Alcohol and Drug Abuse Patient Records regulations: The Federal rules restrict any use of the information to criminally investigate or prosecute any alcohol or drug abuse patient.[facility] Hospital[facility] the event this information is protected by the Federal Confidentiality of Alcohol and Drug Abuse Patient Records regulations: The Federal rules restrict any use of the information to criminally investigate or prosecute any alcohol or drug abuse patient.[facility] Reason for Visit (unrecogniz ed [...] CONSULT TO ENT OFFICE/OUTPATIENT [facility] 60 MINUTES Anamika Valle MD [address] [place] [address] Phone: tel: fax: Referral ID Status Reason Start Date Expiration Date V isits Requested Visits Authorized [id number] Closed PCP Requested Referral 08/14/2024 08/14/2025 1 [...] BE BASED ON THE PRIMARY CLINICAL RECORDS. [facility] [employer], [facility]. provides no warranty or guarantee of the accuracy or completeness of information in this document.
== END 2024-11-05 10:29 | disposition home or self-care (01) ==
LOC: US 10:28
PROVIDERS: PCP Family Medicine; Visit Provider Family Medicine
DX: E04.1 Nontoxic single thyroid nodule (principal)
CPT/HCPCS: 76536

== ENCOUNTER 2024-11-20 11:30 | Emergency (ER) | payer MEDICARE, SELFPAY ==
[2024-11-20 11:43] VITALS: BP 168/88; PULSE 90; TEMP 36.4; O2SAT 99; BMI 21.1
--- OUTSIDE RECORDS SUMMARY | 2024-11-20 11:49 | XMS_ITS | CCD ---
Author Organization [facility] Care Team Providers Care Professor Of Family Medicine Name Role Phone PHYSICIAN, DEFAULT Unavailable Unavailable PHYSICIAN, DEFAULT Unavailable Unavailable JANINE BENAVIDESLAS Unavailable Unavailable JI, ABDULAZIM Unavailable Unavailable JI, ABDULAZIM Unavailable Unavailable JANINE BENAVIDESLAS Unavailable Unavailable ANAMIKA BENAVIDES Unavailable Unavailable [place] Unavailable Unavailable JI, ABDULAZIM Unavailable Unavailable [place] Unavailable Unavailable BOUCHRA HARPER Unavailable Unavailable ANAMIKA BENAVIDES Referring Unavailable ANAMIKA BENAVIDES Primary Care Unavailable ANAMIKA BENAVIDES Referring Unavailable ANAMIKA BENAVIDES Primary Care Unavailable Anamika Benavides Primary Care Provider [phone] MD Anamika Benavides Primary Care Provider Self, Referral Attending Provider Unavailable DR ANAMIKA BENAVIDES Admitting Unavailable MAKAYLA, DR WILLSON Attending Unavailable MAKAYLA, DR WILLSON Primary Care Unavailable MAKAYLA, DR WILLSON Consulting Unavailable DR Danna Hanna Consulting Unavailable DR ANAMIKA BENAVIDES Primary Care Unavailable WIDR ELISABETH BARNETT Admitting Unavailable WIECEKatelin, DR ELISABETH Irwin Attending Unavailable WIERICKA, DR ELISABETH Irwin Consulting Unavailable Corrine, DR Decker Consulting Unavailable DEXTER SAUNDERS Consulting Unavailable KELLY LEWIS Consulting Unavailable DANNA HERNANDES Consulting Unavailable DR ANAMIKA BENAVIDES Admitting Unavailable MAKAYLA, DR WILLSON Attending Unavailable MAKAYLA, DR WILLSON Primary Care Unavailable DR ANAMIKA BENAVIDES Consulting Unavailable Corrine, DR Decker Consulting Unavailable DR ANAMIKA BENAVIDES Admitting Unavailable MAKAYLA, DR WILLSON Attending Unavailable MAKAYLA, DR WILLSON Primary Care Unavailable DR ANAMIKA BENAVIDES Consulting Unavailable DR ENIO MOHAN V Consulting Unavailable DR ANAMIKA BENAVIDES Admitting Unavailable MAKAYLA, DR WILLSON Attending Unavailable MAKAYLA, DR WILLSON Primary Care Unavailable DR ANAMIKA BENAVIDES Consulting Unavailable MAKAYLA, DR WILLSON Admitting Unavailable MAKAYLA, DR WILLSON Attending Unavailable MAKAYLA, DR WILLSON Primary Care Unavailable MAKAYLA, DR WILLSON Consulting Unavailable MARQUES, DR ENIO Vasquez Consulting Unavailable DESTINI DOOLEY Admitting Unavailable DESTINI DOOLEY Attending Unavailable MAKAYLA, DR WILLSON Primary Care Unavailable DESTINI DOOLEY Consulting Unavailable Anamika Benavides MD Primary Care Provider Anamika Benavides MD Unavailable MD Anamika Benavides Primary Care Provider Self, Referral Attending Provider Unavailable Anamika Benavides MD Primary Care Provider MD Anamika Benavides Primary Care Provider MD Anamika Benavides Referring Provider Self, Referral Attending Provider Unavailable Anamika Benavides Referring Unavailable Anamika Benavides Primary Care Unavailable Self, Referral Attending Unavailable Self, Referral Admitting Unavailable Anamika Benavides Primary Care Physician KASIE BURNSORVA Attending Unavailable GRANT, GEORGES Admitting Unavailable Rubén MANUEL Attending Unavailable Anamika Benavides Referring Unavailable GRANT GEORGES Attending Unavailable GRANT, GEORGES Admitting Unavailable Rubén MANUEL Attending Unavailable Anamika Benavides MD Primary Care Provider Anamika Benavides MD Primary Care Provider Anamika Benavides MD Unavailable ANAMIKA BENAVIDES Referring Unavailable ANAMIKA BENAVIDES Primary Care Unavailable ALEJANDRA CALHOUN Attending Unavailable SEMAJ BENITEZ Attending Unavailable SEMAJ BENITEZ Attending Unavailable SEVERO CURRY Attending Unavailable SEMAJ BENITEZ Attending Unavailable ENRIQUETA BENITEZOLAS A Attending Unavailable ENRIQUETA BENITEZOLAS A Attending Unavailable ELI SEMAJ A Attending Unavailable ELI SEMAJ A Attending Unavailable MARIANNA HERRERA Attending Unavailable SEMAJ BENITEZ A Attending Unavailable EVERETT SILVA Attending Unavailable VICTORIA SAAB Attending Unavailable VICTORIA SAAB Attending Unavailable SHIRIN ESCOBAR A Attending Unavailable SEMAJ BENITEZ A Attending Unavailable Allergies Allergy Classification Reported Allergen(s) Allergy Type Date of Onset Reaction(s) Facility (20 sources) Codeine; Translations: [CODEINE] Drug Allergy 11-30-19 05 Nausea Only, Gastrointestinal irritation (disorder) [facility] (1 source) Etodolac Drug Allergy 03-21-19 17 [facility] (2 sources) no latex allergy [Other] Propensity to adverse reactions 11-30-19 05 [facility] (20 sources) Etodolac Allergy to substance 09-22-19 23 [facility] (20 sources) Sulfonamides (Antibiotic) Drug Allergy 07-14-19 22 Hives [facility] (20 sources) Other Propensity to adverse reactions 11-30-19 05 [facility] (1 source) Unable to Assess Drug allergy (disorder) 10-07-19 19 [facility] Repository (20 sources) Ciprofloxacin; Translations: [ciprofloxacin] Drug Allergy 06-02-19 25 Patient reported problems (finding) [facility] [place] Medications Current Medications Medication Drug Class(es) Dates Sig (Normalized) Sig (Original) alendronic acid 70 mg oral tablet (6 sources) Bisphosphonate Start: 10-19-2024 End: 10-19-2025 take [...] AT BEDTIME latanoprost 0.05 mg/ml ophthalmic solution (14 sources) Prostaglandin Analog Start: 08-02-2024 take 1 [...] Status: Ordered mupirocin 0.02 mg/mg topical ointment (3 sources) RNA Synthetase Inhibitor Antibacterial Start: 10-23-2024 mupirocin [...] Active Start: 01-21-2023 take 2 tablets by [facility] at bedtime tiZANidine (Zanaflex) 4 MG tablet 2 tablets Orally at bedtime for 90 days 01/21/2023 Active triamcinolone acetonide 1 mg/ml topical cream (11 sources) Corticosteroid Start: 09-16-2024 triamcinolone (Kenalog) 0.1 [...] JEANNE CAROTID ART] Onset: 2 Chronic Other aftercare (2 sources) Removal of sutures done; Translations: [Encounter for removal of sutures] 11-06-2024 Episodic Other bone disease and musculoskeletal deformities (4 [...] meds, nerve injury, and recurrence were addressed.) Almyra Protocol: Procedure explained and questions answered to patient or proxy's satisfaction: Yes Test results available and properly labeled: Yes Pathology report reviewed: Yes Photo or diagram used for site identification: Yes Site/side marked: Yes Anesthesia: Anesthesia method: local infiltration Local anesthetic: lidocaine 1% WITH epi and sodium bicarbonate Procedure Details: Biopsy accession number: [id number] Biopsy lab: [facility] Date of biopsy: 09/16/2024 Frozen section biopsy [...] tissue sections, stained, and evaluated by Dr. Saab for interpretation of deep and peripheral margins. [...] tissue sections, stained, and evaluated by Dr. Saab for interpretation of deep and peripheral margins. [...] given on the day of surgery?: No [facility] Skin repairon 10-23-2024 Complexity: Intermediate [...] uncontrollable bleeding, or complications. Dressing type: bandage [facility] No Panel Informationon 09-16 Type [...] Photo taken Amount of lidocaine used: 1cc [facility] No Panel InformationOrdered By: Aydee Heart on 09-16-2024 [facility] Rakesh 09-09-2024 CNOV Office Visit (OTOLBD ) XENA EWING ([id number]) 1955 F [facility] Date Time Provider Department 09/09/24 12:00 PM ALEJANDRA CALHOUN OTOLBD During your visit today, we recorded the following information about you: Alejandra Calhoun MD 09/09/2024 4:46 PM Signed SECTION OF OTOLOGY, NEUROTOLOGY AND LATERAL SKULL BASE SURGERY Department of Otolaryngology - Head and Neck Surgery [facility] September 09, 2024 09/09/2024 Xena Ewing is a 68 year old female referred by Anamika Benavides MD for tinnitus History of Present Illness [...] Tobacco Use: High Risk (08/27/2024) Received from [facility] Patient History Smoking Tobacco Use: Never Smokeless [...] lesions, n (more content not included)... Normal [facility] Lab Miscellaneous-LCon 03-23 Lab Miscellaneous COMMENT Invalid Interpretation Code [facility] Comment on above: Result Comment: Test Ordered: [id number] von Willebrand Genes Result Comment MNEGA PDF report to be sent separately This test was developed and its performance characteristics determined by [facility]. It has not been cleared or approved by the Food and Drug Administration. Performed at: [address] [id number] PhD Alfred Hwang Performed By: #### 1 [id number] #### [facility] [address] [place], [place] [id number] Lupus Anticoagon 02-10-2024 aPTT.lupus sensitive Coag (PPP) [Time] 29.4 second(s) Invalid Interpretation Code 0.0-43.5 [facility] Comment on above: Performed By: #### 2 [id number] #### [facility] [address] [place] [address] dRVVT Coag (PPP) [Time] 32.8 second(s) Invalid Interpretation Code 0.0-47.0 [facility] Comment on above: Performed By: #### 2 [id number] #### [facility] [address] [place] [address] Lupus anticoagulant two screening tests W Reflex Coag (PPP) [Interp] Comment: Invalid Interpretation Code [facility] Comment on above: Result Comment: No l upus anticoagulant was detected. Performed at: [address] [id number] MD Andrew Wilburn Performed By: #### 2 [id number] #### [facility] [address] [place] [address] vWF Activityon 02-10-2024 vWf ristocetin cofactor act actual/normal Platelet aggregation (PPP) [Relative time] 346 % High 50-200 [facility] Comment on above: Result Comment: Perf ormed at: [address] [id number] MD Andrew Wilburn Performed By: #### 2 [id number] #### [facility] [address] [place] [address] von Willebrand Factor (vWF) Agon 02-10-2024 vWf Ag actual/normal IA (PPP) [Relative mass conc] 368 % High 50-200 [facility] Comment on above: Result Comment: [...] developed and its performance characteristics determined by [facility]. It has not been cleared or approved by the Food and Drug Administration. Performed at: [address] [id number] MD Andrew Wilburn Performed By: #### 2 [id number] #### [facility] [address] [place] [address] COAGULATIONOrdered By: Jeffrey Nelson on 02-06-2024 Platelet function (closure time) collagen+EPINEPHrine induced (Bld) [Time] 96 s Normal 70 - 138 second(s) [facility] [place] [place] [facility] Comment on above: Interpretive Data: N ormal ASA vWD Glanzmann s Thrombasthenia ------- ------ ------- COL/EPI Normal Abnormal Abnormal Abnormal Col/ADP Normal Normal Abnormal Abnormal Lab Miscellaneous-LCon 02-05 Test Code 586401 Invalid Interpretation Code [facility] Comment on above: Performed By: #### 1 [id number] #### [facility] [address] [place] [address] Test Name von Willebrand Invalid Interpretation Code [facility] Comment on above: Performed By: #### 1 [id number] #### [facility] [address] [place] [address] Plt Function Assayon 024 Platelet function (closure time) collagen+EPINEPHrine induced (Bld) [Time] 96 second(s) Normal 70-138 [facility] Comment on above: Result Comment: Norm al ASA vWD Glanzmann???s Thrombasthenia ------- ------ ------- COL/EPI Normal Abnormal Abnormal Abnormal Col/ADP Normal Normal Abnormal Abnormal Performed By: #### 1 [id number] #### [facility] [address] [address] Reference Laboratory Testing Ordered By: Paulette Frye on 02-06-2024 Test Code 606990 1 Invalid Interpretation Code [facility] [place] SendOuts Test Name von Willebrand Invalid Interpretation Code [facility] [place] [facility] Summaryon 1 04-06-2023 Ambulatory Visit Summary Ambulatory Visit Summary XENA EWING :1955 Visit Date:02/05/2024 Ambulatory Visit Instructions Your Diagnosis Positive fecal occult blood test Your Care Team Attending Physician - MAR CLARKE, Rubén Holman Primary Care Physician - Makayla CLARKE, Anamika Referring Physician - Anamika Benavides MD This Is Your Medications List Contact [...] you for choosing us for your care. [facility] Provider Letteron 01-10-2024 Provider Letter Provider Letter January 10, 2024 XENA EWING [address] [place] [address] [address] [place], [place] [address] : 1955 Dear Ms. Ewing, We have been trying to reach you with no success regarding a referral from Dr Benavides. It is important that you return our call upon receiving this letter. Also, at the time of your call, please provide us with your current information. Thank you for your prompt attention to this matter. Sincerely, [facility] General Surgery [phone] [facility] MM screening mammo BI w/CADo n 12-27-2023 MM screening mammo BI w/CAD [facility] Main Kinder [address] [place] [id number] Mammography Report Signed Patient: Xena Ewing MR#: [id number] : 1955 Acct:[id number] Age/Sex: 68 / F ADM Date: 12/27/23 Loc: IN Room: Type: [facility] Attending Dr: Referral Self Copies to: Anamika Benavides MD SELF,REFERRAL Ordering Provider: SELF,REFERRAL Date of [...] Location: [facility] Transcribed By: [facility] 12/27/23 1307 Dictated By: Blake Schmidt Jr, DO 12/27/23 1304 Signed By: 12/27/23 1307 [facility] No Panel Informationon 12-16 [facility] PAP ACOG PANEL 2: 30 to 65on 04-26-2022 . . Normal [facility] Comment on above: Result Comment: Perf ormed at: WB Performed By: #### 4 [id number] #### [facility] [address] [place] [address] Dr. Kayy Virgen Age Gdln ACOG Testing 30-65 Normal [facility] Comment on above: Performed By: #### 4 [id number] #### [facility] [address] [address] [address] Kayy Virgen DIAGNOSIS: Comment Normal [facility] Comment on above: Result Comment: UNSA TISFACTORY FOR EVALUATION. Performed at: WB Performed By: #### 4 [id number] #### [facility] [address] [place] [address] Dr. Kayy Virgen HPV Aptima Negative Normal Negative [facility] Comment on above: Result Comment: This nucleic acid amplification test detects fourteen high-risk HPV types (16,18,31,33,35,39,45,51,52,56,58,59,66,68) without differentiation. Performed at: =G Performed By: #### 4 [id number] #### [facility] [address] [place] [address] Dr. Kayy Virgen HPV Genotype Reflex Comment Normal [facility] Comment on above: Result Comment: Crit eria not met, HPV Genotype not performed. Performed at: WB Performed By: #### 4 [id number] #### [facility] [address] [place] [address] Dr. Kayy Virgen Methodology: Comment Normal [facility] Comment on above: Result Comment: This liquid based ThinPrep(R) pap test was screened with the use of an image guided system. Performed at: WB Performed By: #### 4 [id number] #### [facility] [address] [place] [address] Dr. Kayy Virgen Note: Comment Normal [facility] Comment on above: Result Comment: The Pap smear is a screening test designed to aid in the detection of premalignant and malignant conditions of the uterine cervix. It is not a diagnostic procedure and should not be used as the sole means of detecting cervical cancer. Both false-positive and false-negative reports do occur. . Performed at: WB Performed By: #### 4 [id number] #### [facility] [address] [place] [address] Dr. Kayy Virgen Performed by: Comment Normal [facility] Comment on above: Result Comment: Arturo Peters, Emulsification Operator (ASCP) Performed at: [facility]YT Performed By: #### 4 [id number] #### [facility] [address] [place] [address] Dr. Kayy Virgen QC reviewed by: Comment Normal [facility] Comment on above: Result Comment: Pepe Cordova, Supervisory Emulsification Operator (ASCP) Performed at: WB Performed By: #### 4 [id number] #### [facility] [address] [place], [place] [address] Dr. Kayy Virgen Recommendation: Comment Normal [facility] Comment on above: Result Comment: Sugg est follow up as clinically appropriate. Performed at: WB Performed By: #### 4 [id number] #### [facility] [address] [place], [place] [address] Dr. Kayy Virgen Specimen adequacy: Comment Normal [facility] Comment on above: Result Comment: Spec imen processed and examined but unsatisfactory for evaluation of epithelial abnormality because of insufficient cellularity. Performed at: WB Performed By: #### 4 [id number] #### [facility] [address] [place], [place] [address] Dr. Kayy Virgen US THYROIDon 01-05-2022 US [...] TR 4 nodule, previously biopsied TI-RADS: The [employer] TI-RADS committee's white paper recommendations for thyroid lesions classified as TR3 (mildly suspicious) are listed below: > 1.5 cm. Follow-up ultrasound in 1, 3, and 5 years. > 2.5 cm. FNA. J. Am Anais Radiol 2017;14:587-595. Electronically authenticated by: ENIO MOHAN Date: 2022-01-05 15:25 Normal [facility] T4, T3U, FTI LABCORPon 11-10 Free Thyroxine Index 2.0 Normal 1.2-4.9 [facility] Comment on above: Performed By: #### T HYLC ####[facility] [address] [address]Dr. Kayy Virgen T3 Uptake 26 % Normal 24-39 [facility] Comment on above: Performed By: #### T HYLC ####[facility] [address] [id number]. Kayy Virgen T4 [Mass/Vol] 7.5 ug/dL Normal 4.5-12.0 [facility] Comment on above: Performed By: #### T HYLC ####[facility] [address] [address]Dr. Kayy Virgen CBC AUTO DIFFon 11-09-2021 BASO # 0.1 103/ul Normal 0.0-0.1 [facility] Comment on above: Performed By: #### C BC ####[facility] [address] [address]Dr. Kayy Param Basophils/100 WBC (Bld) 2.1 % Critically high 0.2-2.0 [facility] Comment on above: Performed By: #### C BC ####[facility] [address] [place], [place] [address]Dr. Kayy Virgen EO # 0.2 103/ul Normal 0.0-0.7 [facility] Comment on above: Performed By: #### C BC ####[facility] [address] [place], [place] [address]Dr. Kayy Virgen Eosinophils/100 WBC (Bld) 5.1 % Normal 0.9-7.0 [facility] Comment on above: Performed By: #### C BC ####[facility] [address] [place], [place] [address]Dr. Kayy Virgen Erythrocyte distribution width (RBC) [Ratio] 14.6 % Normal 11.0-15.0 [facility] Comment on above: Performed By: #### C BC ####[facility] [address] [place], [place] [address]Dr. Kayy Virgen Hematocrit (Bld) [Volume fraction] 38.5 % Normal 36.0-48.0 [facility] Comment on above: Performed By: #### C BC ####[facility] [address] [id number]. Kayy Virgen Hemoglobin (Bld) [Mass/Vol] 12.4 g/dL Normal 12.0-16.0 [facility] Comment on above: Performed By: #### C BC ####[facility] [address] [address]Dr. Kayy Virgen IG # 0.01 10e3/ul Normal 0.00-0.03 [facility] Comment on above: Performed By: #### C BC ####[facility] [address] [address]Dr. Kayy Virgen IG % 0.2 % Normal 0.0-0.5 [facility] Comment on above: Performed By: #### C BC ####[facility] [address] [address]Dr. Kayy Virgen LYMPH # 1.5 103/ul Normal 1.2-3.8 [facility] Comment on above: Performed By: #### C BC ####[facility] [address] [address]Dr. Kayy Virgen Lymphocytes/100 WBC (Bld) 33.7 % Normal 20.5-60.0 [facility] Comment on above: Performed By: #### C BC ####[facility] [address] [id number]. Kayy Virgen MANUAL DIFF REQ NO Normal [facility] Comment on above: Performed By: #### C BC ####[facility] [address] [place], [place] [address]Dr. Kayy Virgen MCH (RBC) [Entitic mass] 26.7 pg Normal 26.7-34.0 [facility] Comment on above: Performed By: #### C BC ####[facility] [address] [place], [place] [address]Dr. Kayy Virgen MCHC (RBC) [Mass/Vol] 32.2 g/dL Normal 29.9-35.2 [facility] Comment on above: Performed By: #### C BC ####[facility] [address] [id number]. Kayy Virgen MCV (RBC) [Entitic vol] 82.8 fL Normal 81.0-99.0 [facility] Comment on above: Performed By: #### C BC ####[facility] [address] [address]Dr. Kayy Virgen MONO # 0.5 103/ul Normal 0.3-0.8 [facility] Comment on above: Performed By: #### C BC ####[facility] [address] [address]Dr. Kayy Virgen Monocytes/100 WBC (Bld) 11.9 % Normal 1.7-12.0 [facility] Comment on above: Performed By: #### C BC ####[facility] [address] [place], [place] [address]Dr. Kayy Virgen NEUT # 2.0 103/ul Normal 1.4-6.5 [facility] Comment on above: Performed By: #### C BC ####[facility] [address] [place], [place] [address]Dr. Kayy Virgen Neutrophils/100 WBC (Bld) 47.0 % Normal 43.0-75.0 [facility] Comment on above: Performed By: #### C BC ####[facility] [address] [address]Dr. Kayy Virgen Platelet mean volume (Bld) [Entitic vol] 9.7 fL Normal 9.5-13.5 [facility] Comment on above: Performed By: #### C BC ####[facility] [address] [address]Dr. Kayy Param PLT 269 103/ul Normal 150-450 [facility] Comment on above: Performed By: #### C BC ####[facility] [address] [place], [place] [address]Dr. Kayy Param RBC 4.65 106/ul Normal 4.20-5.40 [facility] Comment on above: Performed By: #### C BC ####[facility] [address] [address]Dr. Kayy Viregn WBC 4.3 103/ul Normal 4.0-11.0 [facility] Comment on above: Performed By: #### C BC ####[facility] [address] [id number]. Kayy Virgen GLYCOHEMOGLOBIN A1Con 2021 ADA RECOMMENDATION SEE BELOW Normal [facility] Comment on above: Result Comment: ADA RECOMMENDED LIMIT 4.0 - 6.0 ADA THERAPEUTIC TARGET < 7.0 ACTION SUGGESTED > 7.0 Performed By: #### A 1C #### [facility] [address] [address] [address] Kayy Virgen Glucose [Mass/Vol] 117 mg/dL Normal [facility] Comment on above: Performed By: #### A 1C #### [facility] [address] [place] [address] Dr. Kayy Virgen HbA1c (Bld) [Mass fraction] 5.7 % Normal 4.5-6.2 [facility] Comment on above: Performed By: #### A 1C #### [facility] [address] [place] [address] Dr. Kayy Virgen IRONon 11-09-2021 Iron [Mass/Vol] 100.0 ug/dL Normal 50.0-170.0 [facility] Comment on above: Performed By: #### I STEPHANI #### [facility] [address] [address] [address] Kayy Virgen PROF 14(COMP METB)on 022 Albumin [Mass/Vol] 4.0 g/dL Normal 3.4-5.0 [facility] Comment on above: Performed By: #### C MP, TSH #### [facility] [address] [address] [address] Kayy Virgen Albumin/Globulin [Mass ratio] 1.1 {ratio} Normal [facility] Comment on above: Performed By: #### C MP, TSH #### [facility] [address] [address] [address] Kayy Virgen ALP [Catalytic activity/Vol] 109 U/L Normal 46-116 [facility] Comment on above: Performed By: #### C MP, TSH #### [facility] [address] [address] [address] Kayy Virgen ALT [Catalytic activity/Vol] 26 U/L Normal 14-59 [facility] Comment on above: Performed By: #### C MP, TSH #### [facility] [address] [address] [address] Kayy Virgen Anion gap [Moles/Vol] 11.2 mmol/L Normal [facility] Comment on above: Performed By: #### C MP, TSH #### [facility] [address] [address] [address] Kayy Virgen AST [Catalytic activity/Vol] 58 U/L Critically high 15-37 [facility] Comment on above: Performed By: #### C MP, TSH #### [facility] [address] [address] [address] Kayy Virgen Bilirubin [Mass/Vol] 0.4 mg/dL Normal 0.2-1.0 [facility] Comment on above: Performed By: #### C MP, TSH #### [facility] [address] [address] [address] Kayy Virgen Calcium [Mass/Vol] 9.8 mg/dL Normal 8.5-10.1 [facility] Comment on above: Performed By: #### C MP, TSH #### [facility] [address] [address] [address] Kayy Virgen Chloride [Moles/Vol] 103 mmol/L Normal 98-107 [facility] Comment on above: Performed By: #### C MP, TSH #### [facility] [address] [address] [address] Kayy Virgen CO2 [Moles/Vol] 28.2 mmol/L Normal 21.0-32.0 [facility] Comment on above: Performed By: #### C MP, TSH #### [facility] [address] [address] [address] Kayy Virgen Creatinine [Mass/Vol] 0.98 mg/dL Normal 0.55-1.02 [facility] Comment on above: Performed By: #### C MP, TSH #### [facility] [address] [address] [address] Kayy Virgen EGFR-AF ARGENTINE >60 Normal >=60 [facility] Comment on above: Performed By: #### C MP, TSH #### [facility] [address] [address] [address] Kayy Virgen EGFR-NON AF ARGENTINE 57 mL/min/1.73m2 Critically low >=60 [facility] Comment on above: Performed By: #### C MP, TSH #### [facility] [address] [address] [address] Kayy Virgen Globulin (S) [Mass/Vol] 3.8 g/dL Normal [facility] Comment on above: Performed By: #### C MP, TSH #### [facility] [address] [address] [address] Kayy Virgen Glucose [Mass/Vol] 102 mg/dL Normal 74-106 [facility] Comment on above: Performed By: #### C MP, TSH #### [facility] [address] [address] [address] Kayy Virgen Potassium [Moles/Vol] 4.4 mmol/L Normal 3.5-5.1 [facility] Comment on above: Performed By: #### C MP, TSH #### [facility] [address] [address] [address] Kayy Virgen Protein [Mass/Vol] 7.8 g/dL Normal 6.4-8.2 [facility] Comment on above: Performed By: #### C MP, TSH #### [facility] [address] [address] [address] Kayy Virgen Sodium [Moles/Vol] 138 mmol/L Normal 136-145 [facility] Comment on above: Performed By: #### C MP, TSH #### [facility] [address] [address] [address] Kayy Virgen Urea nitrogen [Mass/Vol] 22.0 mg/dL Critically high 7.0-18.0 [facility] Comment on above: Performed By: #### C MP, TSH #### [facility] [address] [place] [address] Dr. Kayy Virgen Urea nitrogen/Creatinine [Mass ratio] 22.4 mg/mg Normal [facility] Comment on above: Performed By: #### C MP, TSH #### [facility] [address] [address] [address] Kayy Virgen TSHon 11-09-2021 TSH 1.200 uIU/mL Normal 0.358-3.740 [facility] Comment on above: Performed By: #### C MP, TSH #### [facility] [address] [place] [address] Dr. Kayy Virgen AMYLASEon 08-31-2021 Amylase [Catalytic activity/Vol] 34 U/L Normal 25-115 [facility] Comment on above: Performed By: #### A MY, CMP, LIPA ####[facility] [address] [address]DrIrene Virgen CBC AUTO DIFFon 08-31-2021 BASO # 0.1 103/ul Normal 0.0-0.1 [facility] Comment on above: Performed By: #### C BC ####[facility] [address] [address]Dr. Kayy Virgen Basophils/100 WBC (Bld) 0.8 % Normal 0.2-2.0 [facility] Comment on above: Performed By: #### C BC ####[facility] [address] [address]Dr. Kayy Virgen EO # 0.0 103/ul Normal 0.0-0.7 [facility] Comment on above: Performed By: #### C BC ####[facility] [address] [address]Dr. Kayy Virgen Eosinophils/100 WBC (Bld) 0.6 % Critically low 0.9-7.0 [facility] Comment on above: Performed By: #### C BC ####[facility] [address] [place], [place] [address]Dr. Kayy Virgen Erythrocyte distribution width (RBC) [Ratio] 13.9 % Normal 11.0-15.0 [facility] Comment on above: Performed By: #### C BC ####[facility] [address] [place], [place] [address]Dr. Kayy Virgen Hematocrit (Bld) [Volume fraction] 37.7 % Normal 36.0-48.0 [facility] Comment on above: Performed By: #### C BC ####[facility] [address] [place], [place] [address]Dr. Kayy Virgen Hemoglobin (Bld) [Mass/Vol] 12.3 g/dL Normal 12.0-16.0 [facility] Comment on above: Performed By: #### C BC ####[facility] [address] [place], [place] [address]Dr. Kayy Virgen IG # 0.02 10e3/ul Normal 0.00-0.03 [facility] Comment on above: Performed By: #### C BC ####[facility] [address] [place], [place] [address]Dr. [place] Virgen IG % 0.3 % Normal 0.0-0.5 [facility] Comment on above: Performed By: #### C BC ####[facility] [address] [place], [place] [address]Dr. Kayy Virgen LYMPH # 1.4 103/ul Normal 1.2-3.8 [facility] Comment on above: Performed By: #### C BC ####[facility] [address] [place], [place] [address]Dr. [place] Virgen Lymphocytes/100 WBC (Bld) 20.8 % Normal 20.5-60.0 [facility] Comment on above: Performed By: #### C BC ####[facility] [address] [place], [place] [address]Dr. Kayy Virgen MANUAL DIFF REQ NO Normal [facility] Comment on above: Performed By: #### C BC ####[facility] [address] [place], [place] [address]Dr. Kayy Virgen MCH (RBC) [Entitic mass] 26.9 pg Normal 26.7-34.0 [facility] Comment on above: Performed By: #### C BC ####[facility] [address] [address]Dr. Kayy Virgen MCHC (RBC) [Mass/Vol] 32.6 g/dL Normal 29.9-35.2 [facility] Comment on above: Performed By: #### C BC ####[facility] [address] [address]Dr. Kayy Param MCV (RBC) [Entitic vol] 82.5 fL Normal 81.0-99.0 [facility] Comment on above: Performed By: #### C BC ####[facility] [address] [address]Dr. Kayy Param MONO # 0.6 103/ul Normal 0.3-0.8 [facility] Comment on above: Performed By: #### C BC ####[facility] [address] [place], [place] [address]Dr. [place] Virgen Monocytes/100 WBC (Bld) 8.8 % Normal 1.7-12.0 [facility] Comment on above: Performed By: #### C BC ####[facility] [address] [place], [place] [address]Dr. Kayy Virgen NEUT # 4.5 103/ul Normal 1.4-6.5 [facility] Comment on above: Performed By: #### C BC ####[facility] [address] [place], [place] [address]Dr. [place] Virgen Neutrophils/100 WBC (Bld) 68.7 % Normal 43.0-75.0 [facility] Comment on above: Performed By: #### C BC ####[facility] [address] [place], [place] [address]Dr. [place] Virgen Platelet mean volume (Bld) [Entitic vol] 10.2 fL Normal 9.5-13.5 [facility] Comment on above: Performed By: #### C BC ####[facility] [address] [place], [place] [address]Xp. Kayy Virgen PLT 265 103/ul Normal 150-450 [facility] Comment on above: Performed By: #### C BC ####[facility] [address] [place], [place] [address]Sc. Kayy Virgen RBC 4.57 106/ul Normal 4.20-5.40 [facility] Comment on above: Performed By: #### C BC ####[facility] [address] [place], [place] [address]Jf. Kayy Virgen WBC 6.5 103/ul Normal 4.0-11.0 [facility] Comment on above: Performed By: #### C BC ####[facility] [address] [place], [place] [address] ABD/PELVIS WO CONon 08-31 [...] DANNA HANNA Date: 2021-08-31 12:25 Normal [facility] ER URINE PROFILEon 2 Bilirubin Ql (U) Negative Normal NEGATIVE [facility] Comment on above: Performed By: #### E RUR #### [facility] [address] [place] [address] Dr. Kayy Virgen Clarity (U) CLEAR Normal CLEAR [facility] Comment on above: Performed By: #### E RUR #### [facility] [address] [place] [address] Dr. Kayy Virgen Color (U) LT. YELLOW Normal YELLOW [facility] Comment on above: Performed By: #### E RUR #### [facility] [address] [place] [address] Dr. Kayy CABRERA A micrscopic examination will be performed if indicated. Normal [facility] Comment on above: Performed By: #### E RUR #### [facility] [address] [place] [address] Dr. Kayy Virgen Glucose Ql (U) Negative Normal NEGATIVE [facility] Comment on above: Performed By: #### E RUR #### [facility] [address] [place] [address] Dr. Kayy Virgen Hemoglobin Ql (U) Negative Normal NEGATIVE [facility] Comment on above: Performed By: #### E RUR #### [facility] [address] [place] [address] Dr. Kayy Virgen Ketones Ql (U) Negative Normal NEGATIVE [facility] Comment on above: Performed By: #### E RUR #### [facility] [address] [place] [address] Dr. Kayy Virgen LEUKOCYTES Negative Normal NEGATIVE [facility] Comment on above: Performed By: #### E RUR #### [facility] [address] [place] [address] Dr. Kayy Virgen Nitrite Ql (U) Negative Normal NEGATIVE [facility] Comment on above: Performed By: #### E RUR #### [facility] [address] [address] [address] Kayy Virgen pH (U) 6.0 [pH] Normal 5-9 [facility] Comment on above: Performed By: #### E RUR #### [facility] [address] [address] [address] Kayy Virgen SPEC GRAVITY <=1.005 Abnormal 1.005-<=1.02 5 [facility] Comment on above: Performed By: #### E RUR #### [facility] [address] [address] [address] Kayy Virgen UA PROTEIN Negative Normal NEGATIVE/ TRACE [facility] Comment on above: Performed By: #### E RUR #### [facility] [address] [place] [address] Dr. Kayy Virgen UR MICRO IND NOT INDICATED Normal [facility] Comment on above: Performed By: #### E RUR #### [facility] [address] [place] [address] Dr. Kayy Virgen Urobilinogen Qn (U) 0.2 {Cuauhtemoc'U}/dL Normal 0.2 - 1. 0 [facility] Comment on above: Performed By: #### E RUR #### [facility] [address] [place] [address] Dr. Kayy Virgen LIPASEon 08-31-2021 Lipase [Catalytic activity/Vol] 73.0 U/L Normal 73.0-393.0 [facility] Comment on above: Performed By: #### A MY, CMP, LIPA #### [facility] [address] [address] [address] Kayy Virgen PROF 14(COMP METB)on 022 Albumin [Mass/Vol] 3.6 g/dL Normal 3.4-5.0 [facility] Comment on above: Performed By: #### A MY, CMP, LIPA ####[facility] [address] [address]Dr. Kayy Virgen Albumin/Globulin [Mass ratio] 0.9 {ratio} Normal [facility] Comment on above: Performed By: #### A MY, CMP, LIPA ####[facility] [address] [address]Dr. Kayy Virgen ALP [Catalytic activity/Vol] 98 U/L Normal 46-116 [facility] Comment on above: Performed By: #### A MY, CMP, LIPA ####[facility] [address] [address]Dr. Kayy Virgen ALT [Catalytic activity/Vol] 22 U/L Normal 14-59 [facility] Comment on above: Performed By: #### A MY, CMP, LIPA ####[facility] [address] [address]Dr. Kayy Virgen Anion gap [Moles/Vol] 12.6 mmol/L Normal [facility] Comment on above: Performed By: #### A MY, CMP, LIPA ####[facility] [address] [place], [place] [address]Dr. Kayy Virgen AST [Catalytic activity/Vol] 44 U/L Critically high 15-37 [facility] Comment on above: Performed By: #### A MY, CMP, LIPA ####[facility] [address] [place], [place] [address]Dr. Kayy Virgen Bilirubin [Mass/Vol] 0.5 mg/dL Normal 0.2-1.0 [facility] Comment on above: Performed By: #### A MY, CMP, LIPA ####[facility] [address] [place], [place] [address]Dr. Kayy Virgen Calcium [Mass/Vol] 9.2 mg/dL Normal 8.5-10.1 [facility] Comment on above: Performed By: #### A MY, CMP, LIPA ####[facility] [address] [place], [place] [address]Dr. Kayy Virgen Chloride [Moles/Vol] 104 mmol/L Normal 98-107 [facility] Comment on above: Performed By: #### A MY, CMP, LIPA ####[facility] [address] [place], [place] [address]Dr. Kayy Virgen CO2 [Moles/Vol] 24.3 mmol/L Normal 21.0-32.0 [facility] Comment on above: Performed By: #### A MY, CMP, LIPA ####[facility] [address] [id number]. Kayy Virgen Creatinine [Mass/Vol] 0.87 mg/dL Normal 0.55-1.02 [facility] Comment on above: Performed By: #### A MY, CMP, LIPA ####[facility] [address] [address]Dr. Kayy Virgen EGFR-AF ARGENTINE >60 Normal >=60 [facility] Comment on above: Performed By: #### A MY, CMP, LIPA ####[facility] [address] [address]Dr. Kayy Virgen EGFR-NON AF ARGENTINE >60 Normal >=60 [facility] Comment on above: Performed By: #### A MY, CMP, LIPA ####[facility] [address] [address]Dr. Kayy Virgen Globulin (S) [Mass/Vol] 4.0 g/dL Normal [facility] Comment on above: Performed By: #### A MY, CMP, LIPA ####[facility] [address] [address]Dr. Kayy Virgen Glucose [Mass/Vol] 96 mg/dL Normal 74-106 [facility] Comment on above: Performed By: #### A MY, CMP, LIPA ####[facility] [address] [address]Dr. Kayy Virgen Potassium [Moles/Vol] 3.9 mmol/L Normal 3.5-5.1 [facility] Comment on above: Performed By: #### A MY, CMP, LIPA ####[facility] [address] [address]Dr. Kayy Virgen Protein [Mass/Vol] 7.6 g/dL Normal 6.4-8.2 [facility] Comment on above: Performed By: #### A MY, CMP, LIPA ####[facility] [address] [place], [place] [address]Zz. Kayy Virgen Sodium [Moles/Vol] 137 mmol/L Normal 136-145 [facility] Comment on above: Performed By: #### A MY, CMP, LIPA ####[facility] [address] [place], [place] [address]Dv. Kayy Virgen Urea nitrogen [Mass/Vol] 11.0 mg/dL Normal 7.0-18.0 [facility] Comment on above: Performed By: #### A MY, CMP, LIPA ####[facility] [address] [place], [place] [address]Ki. Kayy Virgen Urea nitrogen/Creatinine [Mass ratio] 12.6 mg/mg Normal [facility] Comment on above: Performed By: #### A MY, CMP, LIPA ####[facility] [address] [place], [place] [address]Fq. Kayy Virgen US THYROID FN ASP BXon 07-05 US THYROID FN ASP BX Begin Addendum #1 COLLECTED DATE/TIME: 06/29/2021 13:56 EDT Final Diagnosis Report for [facility] [place] (A/B) RIGHT THYROID NODULE; FINE NEEDLE ASPIRATION: -BENIGN FOLLICULAR NODULE. 07/05/[address] Benavides. Verified with Laura that report was present [...] Pathology results are pending. Normal [facility] US THYROIDon 06-21-2021 US THYROID EXAMINATION: US [...] nodule. Fine needle aspiration recommended TI-RADS: The [employer] TI-RADS committee's white paper recommendations for thyroid lesions classified as TR4 (moderately suspicious) are listed below: > 1.0 cm. Follow-up ultrasound in 1, 2, 3, and 5 years. > 1.5 cm. FNA. J. Am Anais Radiol 2017;14:[id number]. Electronically authenticated by: ENIO MOHAN Date: 2021-06-21 12:10 Normal [facility] US CAROTID ART BILon 06-08- 022 [...] by: DANNA HANNA Date: 2021-06-08 13:16 Normal [facility] Blood Occult Stool Screen #1 on 10-13-2019 Date, Stool #1 [id number] [facility] [place] Date, Stool #2 NOT REPORTED [facility] [place] Date, Stool #3 NOT REPORTED [facility] [place] Hemoglobin.gastrointe stinal spec 1 Ql (Stl) Negative NEGATIVE [facility] [place] Hemoglobin.gastrointe stinal spec 2 Ql (Stl) NOT REPORTED NEGATIVE [facility] [place] Hemoglobin.gastrointe stinal spec 3 Ql (Stl) NOT REPORTED NEGATIVE [facility] [place] Time, Stool #1 1200 [facility] [place] Time, Stool #2 NOT REPORTED [facility] [place] Time, Stool #3 NOT REPORTED [facility] [place] Occult Blood, Fecalon 2019 Occult Blood 1 Negative Normal NEG [facility] Comment on above: Performed By: #### O BN #### [facility] [address] [place], [place] [id number] Emergency Dispatcher: Elisabeth Worthy MD Specimen 1 Date Normal [facility] Comment on above: Performed By: #### O BN #### [facility] [address] [place], [place] [id number] Emergency Dispatcher: Elisabeth Worthy MD Specimen 1 Time 1199 Normal [facility] Comment on above: Performed By: #### O BN #### [facility] [address] [place], [place] [id number] Emergency Dispatcher: Elisabeth Worthy MD Specimen 2 Date NOT REPORTED Normal [facility] Comment on above: Performed By: #### O BN #### [facility] [address] [place] [address] Emergency Dispatcher: Elisabeth Worthy MD Specimen 2 Time NOT REPORTED Normal [facility] Comment on above: Performed By: #### O BN #### [facility] [address] [place] [address] Emergency Dispatcher: Elisabeth Worthy MD Specimen 3 Date NOT REPORTED Normal [facility] Comment on above: Performed By: #### O BN #### [facility] [address] [place], [place] [id number] Emergency Dispatcher: Elisabeth Worthy MD Specimen 3 Time NOT REPORTED Normal [facility] Comment on above: Performed By: #### O BN #### [facility] [address] [place], [place] [address] Emergency Dispatcher: Elisabeth Worthy MD Occult Blood 2 NOT REPORTED Normal NEG [facility] Comment on above: Performed By: #### O BN #### [facility] [address] [place], [place] [id number] Emergency Dispatcher: Elisabeth Worthy MD Occult Blood 3 NOT REPORTED Normal NEG [facility] Comment on above: Performed By: #### O BN #### [facility] [address] [place], [place] [id number] Emergency Dispatcher: Elisabeth Worthy MD Free Thyroxine Indexon 10-07 FTI Ratio 2.0 ug/dL Normal 1.4-3.1 [facility] Comment on above: Performed By: #### F TI, FE #### [address] [address] Emergency Dispatcher: Otoniel Ash MD #### TSH, LIPR, CP, GLYHGB, CDP #### [facility] [address] [place], [place] [id number] Emergency Dispatcher: Elisabeth Worthy MD T4 [Mass/Vol] 29.74 % Normal 22.5-37.0 [facility] Comment on above: Performed By: #### F TI, FE #### [facility] [address] [place] [address] Emergency Dispatcher: Otoniel Ash MD #### TSH, LIPR, CP, GLYHGB, CDP #### [facility] [address] [place] [address] Emergency Dispatcher: Elisabeth Worthy MD T4 [Mass/Vol] 6.6 ug/dL Normal 4.5-10.9 [facility] Comment on above: Performed By: #### F TI, FE #### [facility] [address], [place] [id number] Emergency Dispatcher: Otoniel Ash MD #### TSH, LIPR, CP, GLYHGB, CDP #### [facility] [address] [place] [address] Emergency Dispatcher: Elisabeth Worthy MD Ironon 10-08-2019 Iron [Mass/Vol] 73 ug/dL Normal 37-145 [facility] Comment on above: Performed By: #### F TI, FE #### [facility] [address], [place] [id number] Emergency Dispatcher: Otoniel Ash MD #### TSH, LIPR, CP, GLYHGB, CDP #### [facility] [address] [place] [address] [place] [address] Emergency Dispatcher: Elisabeth Worthy MD T3 uptake and FTIon 10-08-19 Free Thyroxine Index 2 ug/dL 1.4 - 3 .1 ug/dL [place] T4 [Mass/Vol] 29.74 % 22.5 - 37 % [place] T4, Total 6.6 ug/dL 4.5 - 10.9 ug/dL [place] CBC Auto Differentialon 09-16 Basophils (Bld) [#/Vol] 0.07 10*3/uL [place] Basophils/100 WBC (Bld) 1 % 0 - 2 % [place] Differential Type NOT REPORTED [place] Eosinophils (Bld) [#/Vol] 0.06 10*3/uL [place] Eosinophils/100 WBC (Bld) 1 % 1 - 4 % [place] Erythrocyte distribution width (RBC) [Ratio] 14.5 % High 11.8 - 14.4 % [place] Hematocrit (Bld) [Volume fraction] 42.4 % 36.3 - 47.1 % [place] Hemoglobin (Bld) [Mass/Vol] 13.2 g/dL 11.9 - 15.1 g/dL [place] Immature granulocytes (Bld) [#/Vol] 10*3/uL [place] Immature granulocytes (Bld) [#/Vol] 0 % 0 [place] Interpretation and review of laboratory results Abnormal [place] Lymphocytes (Bld) [#/Vol] 1.87 10*3/uL [place] Lymphocytes/100 WBC (Bld) 33 % 24 - 43 % [place] MCH (RBC) [Entitic mass] 26.1 pg 25.2 - 33.5 pg [place] MCHC (RBC) [Mass/Vol] 31.1 g/dL 28.4 - 34.8 g/dL [place] MCV (RBC) [Entitic vol] 84.0 fL 82.6 - 102.9 fL [place] Monocytes (Bld) [#/Vol] 0.45 10*3/uL [place] Monocytes/100 WBC (Bld) 8 % 3 - 12 % [place] Platelet mean volume (Bld) [Entitic vol] 10.1 fL 8.1 - 13.5 fL [place] Platelets (Bld) [#/Vol] 270 10*3/uL [place] Platelets (Bld) [#/Vol] NOT REPORTED [place] RBC (Bld) [#/Vol] 5.05 10*6/uL 3.95 - 5.1 1 m/uL [place] RBC morphology finding Nom (Bld) NOT REPORTED [place] Segmented neutrophils/100 WBC (Bld) 57 % 36 - 65 % [place] Segs Absolute 3.17 [place] WBC (Bld) [#/Vol] 5.6 10*3/uL [place] WBC (Bld) [#/Vol] 0.0 10*3/uL 0.0 per 10 0 WBC [place] WBC Morphology NOT REPORTED [place] CBC with Diffon 10-07-2019 Abs. Basophil 0.07 k/uL Normal 0.00-0.20 [facility] Comment on above: Performed By: #### F TI, FE #### [address] [address] Emergency Dispatcher: Otoniel Ash MD #### TSH, LIPR, CP, GLYHGB, CDP #### [address] [place] [phone] Emergency Dispatcher: Elisabeth Worthy MD Abs.Imm.Granulocyte <0.03 Normal 0.00-0.30 [facility] Comment on above: Performed By: #### F TI, FE #### [address] [id number] Emergency Dispatcher: Otoniel Ash MD #### TSH, LIPR, CP, GLYHGB, CDP #### [address] [place] [phone] Emergency Dispatcher: Elisabeth Worthy MD Abs.Neutrophil (Seg) 3.17 k/uL Normal 1.50-8.10 [facility] [place] Comment on above: Performed By: #### F TI, FE #### [address] [address] Emergency Dispatcher: Otoniel Ash MD #### TSH, LIPR, CP, GLYHGB, CDP #### [address] [place], [place] [address] Emergency Dispatcher: Elisabeth Worthy MD Basophils/100 WBC (Bld) 1 % Normal 0-2 [facility] Comment on above: Performed By: #### F TI, FE #### [address] [address] Emergency Dispatcher: Otoniel Ash MD #### TSH, LIPR, CP, GLYHGB, CDP #### [address] [place] [phone] Emergency Dispatcher: Elisabeth Worthy MD Eosinophils (Bld) [#/Vol] 0.06 10*3/uL Normal 0.00-0.44 [facility] Comment on above: Performed By: #### F TI, FE #### [address] [phone] Emergency Dispatcher: Otoniel Ash MD #### TSH, LIPR, CP, GLYHGB, CDP #### [address] [place] [phone] Emergency Dispatcher: Elisabeth Worthy MD Eosinophils/100 WBC (Bld) 1 % Normal 1-4 [facility] Comment on above: Performed By: #### F TI, FE #### [address] [phone] Emergency Dispatcher: Otoniel Ash MD #### TSH, LIPR, CP, GLYHGB, CDP #### [address] [place] [phone] Emergency Dispatcher: Elisabeth Worthy MD Erythrocyte distribution width (RBC) [Ratio] 14.5 % High 11.8-14.4 [facility] Comment on above: Performed By: #### F TI, FE #### [address] [id number] Emergency Dispatcher: Otoniel Ash MD #### TSH, LIPR, CP, GLYHGB, CDP #### [address] [place] [phone] Emergency Dispatcher: Elisabeth Worthy MD Hematocrit (Bld) [Volume fraction] 42.4 % Normal 36.3-47.1 [facility] Comment on above: Performed By: #### F TI, FE #### [address] [id number] Emergency Dispatcher: Otoniel Ash MD #### TSH, LIPR, CP, GLYHGB, CDP #### [facility] [address] [place] [address] Emergency Dispatcher: Elisabeth Worthy MD Hemoglobin (Bld) [Mass/Vol] 13.2 g/dL Normal 11.9-15.1 [facility] Comment on above: Performed By: #### F TI, FE #### [address] [address] Emergency Dispatcher: Otoniel Ash MD #### TSH, LIPR, CP, GLYHGB, CDP #### [facility] [address] [place] [address] Emergency Dispatcher: Elisabeth Worthy MD Immature granulocytes (Bld) [#/Vol] 0 % Normal 0 [facility] Comment on above: Performed By: #### F TI, FE #### [address] [address] Emergency Dispatcher: Otoniel Ash MD #### TSH, LIPR, CP, GLYHGB, CDP #### [address] [place] [phone] Emergency Dispatcher: Elisabeth Worthy MD Lymphocytes (Bld) [#/Vol] 1.87 10*3/uL Normal 1.10-3.70 [facility] Comment on above: Performed By: #### F TI, FE #### [address] [address] Emergency Dispatcher: Otoniel Ash MD #### TSH, LIPR, CP, GLYHGB, CDP #### [facility] [address] [place] [address] Emergency Dispatcher: Elisabeth Worthy MD Lymphocytes/100 WBC (Bld) 33 % Normal 24-43 [facility] Comment on above: Performed By: #### F TI, FE #### [address] [id number] Emergency Dispatcher: Otoniel Ash MD #### TSH, LIPR, CP, GLYHGB, CDP #### [address] [place] [phone] Emergency Dispatcher: Elisabeth Worthy MD MCH (RBC) [Entitic mass] 26.1 pg Normal 25.2-33.5 [facility] Comment on above: Performed By: #### F TI, FE #### [place] [address] Emergency Dispatcher: Otoniel Ash MD #### TSH, LIPR, CP, GLYHGB, CDP #### [address] [place] [phone] Emergency Dispatcher: Elisabeth Worthy MD MCHC (RBC) [Mass/Vol] 31.1 g/dL Normal 28.4-34.8 [facility] Comment on above: Performed By: #### F TI, FE #### [place] [address] Emergency Dispatcher: Otoniel Ash MD #### TSH, LIPR, CP, GLYHGB, CDP #### [address] [place] [phone] Emergency Dispatcher: Elisabeth Worthy MD MCV (RBC) [Entitic vol] 84.0 fL Normal 82.6-102.9 [facility] Comment on above: Performed By: #### F TI, FE #### [address] [id number] Emergency Dispatcher: Otoniel Ash MD #### TSH, LIPR, CP, GLYHGB, CDP #### [address] [place] [phone] Emergency Dispatcher: Elisabeth Worthy MD Monocytes (Bld) [#/Vol] 0.45 10*3/uL Normal 0.10-1.20 [facility] Comment on above: Performed By: #### F TI, FE #### [place] [address] [place] [address] Emergency Dispatcher: Otoniel Ash MD #### TSH, LIPR, CP, GLYHGB, CDP #### [facility] [address] [place], [place] [phone] Emergency Dispatcher: Elisabeth Worthy MD Monocytes/100 WBC (Bld) 8 % Normal 3-12 [facility] Comment on above: Performed By: #### F TI, FE #### [address] [address] Emergency Dispatcher: Otoniel Ash MD #### TSH, LIPR, CP, GLYHGB, CDP #### [facility] [address] [place] [address] Dr. [place], [place] [phone] Emergency Dispatcher: Elisabeth Worthy MD Neutrophil (Seg) 57 % Normal 36-65 [facility] Comment on above: Performed By: #### F TI, FE #### [address] [address] Emergency Dispatcher: Otoniel Ash MD #### TSH, LIPR, CP, GLYHGB, CDP #### [facility] [address] [place] [address] Dr. [place], [place] [phone] Emergency Dispatcher: Elisabeth Worthy MD NRBC Automated 0.0 per 100 WBC Normal 0.0 [facility] Comment on above: Performed By: #### F TI, FE #### [address] [address] Emergency Dispatcher: Otoniel Ash MD #### TSH, LIPR, CP, GLYHGB, CDP #### [address] [place], [place] [phone] Emergency Dispatcher: Elisabeth Worthy MD Platelet mean volume (Bld) [Entitic vol] 10.1 fL Normal 8.1-13.5 [facility] Comment on above: Performed By: #### F TI, FE #### [address] [place] [address] Emergency Dispatcher: Otoniel Ash MD #### TSH, LIPR, CP, GLYHGB, CDP #### [facility] [address] [place] [address] Emergency Dispatcher: Elisabeth Worthy MD Platelets (Bld) [#/Vol] 270 10*3/uL Normal 138-453 [facility] Comment on above: Performed By: #### F TI, FE #### [address] [address] Emergency Dispatcher: Otoniel Ash MD #### TSH, LIPR, CP, GLYHGB, CDP #### [address] [place] [phone] Emergency Dispatcher: Elisabeth Worthy MD RBC (Bld) [#/Vol] 5.05 10*6/uL Normal 3.95-5.11 [facility] Comment on above: Performed By: #### F TI, FE #### [address] [address] Emergency Dispatcher: Otoniel Ash MD #### TSH, LIPR, CP, GLYHGB, CDP #### [address] [place] [address] Emergency Dispatcher: Elisabeth Worthy MD WBC (Bld) [#/Vol] 5.6 10*3/uL Normal 3.5-11.3 [facility] Comment on above: Performed By: #### F TI, FE #### [address] [address] Emergency Dispatcher: Otoniel Ash MD #### TSH, LIPR, CP, GLYHGB, CDP #### [address] [place] [phone] Emergency Dispatcher: Elisabeth Worthy MD Auto Diff Performed NOT REPORTED Normal [facility] Comment on above: Performed By: #### F TI, FE #### [address] [address] Emergency Dispatcher: Otoniel Ash MD #### TSH, LIPR, CP, GLYHGB, CDP #### [facility] [address] [place] [address] Dr. [place] [phone] Emergency Dispatcher: Elisabeth Worthy MD Platelets (Bld) [#/Vol] NOT REPORTED Normal [facility] Comment on above: Performed By: #### F TI, FE #### [address] [address] Emergency Dispatcher: Otoniel Ash MD #### TSH, LIPR, CP, GLYHGB, CDP #### [address] [place] [phone] Emergency Dispatcher: Elisabeth Worthy MD RBC morphology finding Nom (Bld) NOT REPORTED [facility] Comment on above: Performed By: #### F TI, FE #### [address] [address] Emergency Dispatcher: Otoniel Ash MD #### TSH, LIPR, CP, GLYHGB, CDP #### [address] [place] [phone] Emergency Dispatcher: Elisabeth Worthy MD WBC Morphology NOT REPORTED Normal [facility] Comment on above: Performed By: #### F TI, FE #### [address] [address] Emergency Dispatcher: Otoniel Ash MD #### TSH, LIPR, CP, GLYHGB, CDP #### [facility] [address] [place] [address] Dr. [place] [phone] Emergency Dispatcher: Elisabeth Worthy MD Comp Metabolic Profon 2019 (cont.) Normal [facility] Comment on above: Result Comment: Aver age GFR for 60-69 years old: 85 mL/min/1.73sq m Chronic Kidney Disease: <60 mL/min/1.73sq m Kidney failure: <15 mL/min/1.73sq m eGFR calculated using average adult body mass. Additional eGFR calculator available at: http://www.[employer].MaSpatule.com/multiple_crcl_2012.htm Performed By: #### F TI, FE #### [address] [address] Emergency Dispatcher: Otoniel Ash MD #### TSH, LIPR, CP, GLYHGB, CDP #### [address] [place] [phone] Emergency Dispatcher: Elisabeth Worthy MD Albumin [Mass/Vol] 4.5 g/dL Normal 3.5-5.2 [facility] Comment on above: Performed By: #### F HUMBERTO, FE #### [address] [address] Emergency Dispatcher: Otoniel Ash MD #### TSH, LIPR, CP, GLYHGB, CDP #### [address] [place] [phone] Emergency Dispatcher: Elisabeth Worthy MD Albumin/Globulin [Mass ratio] 1.4 {ratio} Normal 1.0-2.5 [facility] Comment on above: Performed By: #### F TI, FE #### [address] [address] Emergency Dispatcher: Otoniel Ash MD #### TSH, LIPR, CP, GLYHGB, CDP #### [address] [place] [address] Emergency Dispatcher: Elisabeth Worthy MD Alkaline Phos 94 U/L Normal 35-104 [facility] Comment on above: Performed By: #### F TI, FE #### [address] [phone] Emergency Dispatcher: Otoniel Ash MD #### TSH, LIPR, CP, GLYHGB, CDP #### [address] [place] [address] Emergency Dispatcher: Elisabeth Worthy MD ALT [Catalytic activity/Vol] 10 U/L Normal 5-33 [facility] Comment on above: Performed By: #### F TI, FE #### [address] [address] Emergency Dispatcher: Otoniel Ash MD #### TSH, LIPR, CP, GLYHGB, CDP #### [address] [place] [phone] Emergency Dispatcher: Elisabeth Worthy MD Anion gap [Moles/Vol] 12 mmol/L Normal 9-17 [facility] Comment on above: Performed By: #### F TI, FE #### [address] [phone] Emergency Dispatcher: Otoniel Ash MD #### TSH, LIPR, CP, GLYHGB, CDP #### [address] [place] [phone] Emergency Dispatcher: Elisabeth Worthy MD AST [Catalytic activity/Vol] 40 U/L High <32 [facility] Comment on above: Performed By: #### F TI, FE #### [address] [address] Emergency Dispatcher: Otoniel Ash MD #### TSH, LIPR, CP, GLYHGB, CDP #### [address] [place] [address] Emergency Dispatcher: Elisabeth Worthy MD Bilirubin Ql (U) 0.27 mg/dL Low 0.3-1.2 [facility] Comment on above: Performed By: #### F TI, FE #### [address] [address] Emergency Dispatcher: Otoniel Ash MD #### TSH, LIPR, CP, GLYHGB, CDP #### [address] [place] [phone] Emergency Dispatcher: Elisabeth Worthy MD BUN/CRE Ratio 22 High 9-20 [facility] Comment on above: Performed By: #### F TI, FE #### [address] [address] Emergency Dispatcher: Otoniel Ash MD #### TSH, LIPR, CP, GLYHGB, CDP #### [address] [place] [phone] Emergency Dispatcher: Elisabeth Worthy MD Calcium [Mass/Vol] 10.0 mg/dL Normal 8.6-10.4 [facility] Comment on above: Performed By: #### F TI, FE #### [address] [id number] Emergency Dispatcher: Otoniel Ash MD #### TSH, LIPR, CP, GLYHGB, CDP #### [address] [place] [phone] Emergency Dispatcher: Elisabeth Worthy MD Chloride [Moles/Vol] 105 mmol/L Normal 98-107 [facility] Comment on above: Performed By: #### F TI, FE #### [address] [address] Emergency Dispatcher: Otoniel Ash MD #### TSH, LIPR, CP, GLYHGB, CDP #### [address] [place] [phone] Emergency Dispatcher: Elisabeth Worthy MD CO2 [Moles/Vol] 21 mmol/L Normal 20-31 [facility] Comment on above: Performed By: #### F TI, FE #### [address] [address] Emergency Dispatcher: Otoniel Ash MD #### TSH, LIPR, CP, GLYHGB, CDP #### [address] [place] [address] Emergency Dispatcher: Elisabeth Worthy MD Creatinine [Mass/Vol] 0.79 mg/dL Normal 0.50-0.90 [facility] Comment on above: Performed By: #### F TI, FE #### [address] [id number] Emergency Dispatcher: Otoniel Ash MD #### TSH, LIPR, CP, GLYHGB, CDP #### [address] [place] [address] Emergency Dispatcher: Elisabeth Worthy MD GFR, Amer >60 Normal >60 [facility] Comment on above: Performed By: #### F TI, FE #### [address] [address] Emergency Dispatcher: Otoniel Ash MD #### TSH, LIPR, CP, GLYHGB, CDP #### [address] [place] [address] Emergency Dispatcher: Elisabeth Worthy MD GFR,non Amer >60 Normal >60 [facility] Comment on above: Performed By: #### F TI, FE #### [address] [address] Emergency Dispatcher: Otoniel Ash MD #### TSH, LIPR, CP, GLYHGB, CDP #### [address] [place] [address] Emergency Dispatcher: Elisabeth Worthy MD Glucose [Mass/Vol] 99 mg/dL Normal 70-99 [facility] Comment on above: Performed By: #### F TI, FE #### [address] [place] [address] Emergency Dispatcher: Otoniel Ash MD #### TSH, LIPR, CP, GLYHGB, CDP #### [address] [place] [phone] Emergency Dispatcher: Elisabeth Worthy MD Potassium [Moles/Vol] 4.1 mmol/L Normal 3.7-5.3 [facility] Comment on above: Performed By: #### F TI, FE #### [address] [address] Emergency Dispatcher: Otoniel Ash MD #### TSH, LIPR, CP, GLYHGB, CDP #### [address] [place] [phone] Emergency Dispatcher: Elisabeth Worthy MD Protein [Mass/Vol] 7.7 g/dL Normal 6.4-8.3 [facility] Comment on above: Performed By: #### F TI, FE #### [address] [address] Emergency Dispatcher: Otoniel Ash MD #### TSH, LIPR, CP, GLYHGB, CDP #### [address] [place] [phone] Emergency Dispatcher: Elisabeth Worthy MD Sodium [Moles/Vol] 138 mmol/L Normal 135-144 [facility] Comment on above: Performed By: #### F TI, FE #### [address] [address] Emergency Dispatcher: Otoniel Ash MD #### TSH, LIPR, CP, GLYHGB, CDP #### [address] [place] [phone] Emergency Dispatcher: Elisabeth Worthy MD Staging: Normal [facility] Comment on above: Result Comment: Stag e 1: Some kidney damage normal GFR Stage 2: Mild kidney damage GFR 60-89 Stage 3: Moderate kidney damage GFR 30-59 Stage 4: Severe kidney damage GFR 15-29 Stage 5: Severe kidney damage GFR <15 ESRD - chronic treatment by dialysis or transplant Performed By: #### F TI, FE #### [address] [place], [place] [id number] Emergency Dispatcher: Otoniel Ash MD #### TSH, LIPR, CP, GLYHGB, CDP #### [facility] [address] [place] [address] Emergency Dispatcher: Elisabeth Worthy MD Urea nitrogen [Mass/Vol] 17 mg/dL Normal 8-23 [facility] Comment on above: Performed By: #### F TI, FE #### [facility] [address] [place], [place] [phone] Emergency Dispatcher: Otoniel Ash MD #### TSH, LIPR, CP, GLYHGB, CDP #### [facility] [address] [place] [address] Emergency Dispatcher: Elisabeth Worthy MD Comprehensive Metabolic Pane [facility] 10-07-2019 Albumin [Mass/Vol] 4.5 g/dL 3.5 - 5.2 g/dL [place] Albumin/Globulin [Mass ratio] 1.4 {ratio} [place] ALP [Catalytic activity/Vol] 94 U/L 35 - 104 U/L [place] ALT [Catalytic activity/Vol] 10 U/L 5 - 33 U/L [place] Anion gap [Moles/Vol] 12 mmol/L 9 - 17 mmol/L [place] AST [Catalytic activity/Vol] 40 U/L High <32 [place] Bilirubin Ql (U) 0.27 mg/dL Low 0.3 - 1.2 mg/dL [place] Bun/Cre Ratio 22 High [place] Calcium [Mass/Vol] 10.0 mg/dL 8.6 - 10. 4 mg/dL [place] Chloride [Moles/Vol] 105 mmol/L 98 - 10 7 mmol/L [place] CO2 [Moles/Vol] 21 mmol/L 20 - 31 mmol/L [place] Creatinine [Mass/Vol] 0.79 mg/dL 0.5 - 0.9 mg/dL [place] GFR >60 >60 mL/min [place] GFR Non- >60 >60 mL/min [place] Glucose [Mass/Vol] 99 mg/dL 70 - 99 mg/dL [place] Potassium [Moles/Vol] 4.1 mmol/L 3.7 - 5.3 mmol/L [place] Protein [Mass/Vol] 7.7 g/dL 6.4 - 8.3 g/dL [place] Sodium [Moles/Vol] 138 mmol/L 135 - 144 mmol/L [place] Urea nitrogen [Mass/Vol] 17 mg/dL 8 - 23 mg/dL [place] Hemoglobin A1Con 10-07-2019 HbA1c (Bld) [Mass fraction] 5.3 % Normal 4.8-5.9 [facility] Comment on above: Performed By: #### NGOC BOWMAN #### [address] [id number] Emergency Dispatcher: Otoniel Ash MD #### TSH, LIPR, CP, GLYHGB, CDP #### [address] [place] [address] Emergency Dispatcher: Elisabeth Worthy MD HbA1c (Bld) [Mass fraction] 105 mg/dL Normal [facility] Comment on above: Result Comment: The ADA and AACC recommend providing the estimated average glucose result to permit better patient understanding of their HBA1c result. Performed By: #### F HUMBERTO, FE #### [address] [place] [address] Emergency Dispatcher: Otoniel Ash MD #### TSH, LIPR, CP, GLYHGB, CDP #### [address] [place] [address] Emergency Dispatcher: Elisabeth Worthy MD Glucose [Mass/Vol] 105 mg/dL [place] Comment on above: The ADA and AACC rec ommend providing the estimated average glucose result to permit better patient understanding of their HBA1c result. HbA1c (Bld) [Mass fraction] 5.3 % 4.8 - 5.9 % [place] Ironon 10-07-2019 Iron [Mass/Vol] 73 ug/dL 37 - 145 ug/dL [place] Lipid Panelon 10-07-2019 Cholesterol [Mass/Vol] 229 mg/dL High <200 [place] Comment on above: Cholesterol Guidelines: <200 Desirable 200-240 Borderline >240 Undesirable Cholesterol in HDL [Mass/Vol] 67 mg/dL >40 [place] Comment on above: HDL Guidelines: <40 Undesirable 40-59 Borderline >59 Desirable Cholesterol in LDL [Mass/Vol] 127 mg/dL 0 - 130 mg/dL [place] Comment on above: LDL Guidelines: <100 Desirable 100-129 Near to/above Desirable 130-159 Borderline >159 Undesirable Direct (measured) LDL and calculated LDL are not interchangeable tests. Cholesterol in VLDL [Mass/Vol] NOT REPORTED High 1 - 30 mg/dL [place] Cholesterol.total/Cho lesterol in HDL [Mass ratio] 3.4 {ratio} <5 [place] Triglyceride [Mass/Vol] 175 mg/dL High <150 [place] Comment on above: Triglyceride Guidelines: <150 Desirable 150-199 Borderline 200-499 High >499 Very high Based on AHA Guidelines for fasting triglyceride, December 2011. Lipid Profileon 10-07-2019 Cholesterol [Mass/Vol] 229 mg/dL High <200 [facility] Comment on above: Result Comment: Cholesterol Guidelines: <200 Desirable 200-240 Borderline >240 Undesirable Performed By: #### F TI FE #### [facility] [address] [place] [address] Emergency Dispatcher: Ootniel Ash MD #### TSH, LIPR, CP, GLYHGB, CDP #### [facility] [address] [place] [address] Emergency Dispatcher: Elisabeth Worthy MD Cholesterol in HDL [Mass/Vol] 67 mg/dL Normal >40 [facility] Comment on above: Result Comment: HDL Guidelines: <40 Undesirable 40-59 Borderline >59 Desirable Performed By: #### F TI, FE #### [address] [id number] Emergency Dispatcher: Otoniel Ash MD #### TSH, LIPR, CP, GLYHGB, CDP #### [facility] [address] [place] [address] [place] [address] Emergency Dispatcher: Elisabeth Worthy MD Cholesterol in LDL [Mass/Vol] 127 mg/dL Normal 0-130 [facility] Comment on above: Result Comment: LDL Guidelines: <100 Desirable 100-129 Near to/above Desirable 130-159 Borderline >159 Undesirable Direct (measured) LDL and calculated LDL are not interchangeable tests. Performed By: #### F TI, FE #### [address] [id number] Emergency Dispatcher: Otoniel Ash MD #### TSH, LIPR, CP, GLYHGB, CDP #### [address] [place] [phone] Emergency Dispatcher: Elisabeth Worthy MD Cholesterol.total/Cho lesterol in HDL [Mass ratio] 3.4 {ratio} Normal <5 [facility] Comment on above: Performed By: #### F TI, FE #### [address] [id number] Emergency Dispatcher: Otoniel Ash MD #### TSH, LIPR, CP, GLYHGB, CDP #### [address] [place] [address] Emergency Dispatcher: Elisabeth Worthy MD Triglyceride [Mass/Vol] 175 mg/dL High <150 [facility] Comment on above: Result Comment: Triglyceride Guidelines: <150 Desirable 150-199 Borderline 200-499 High >499 Very high Based on AHA Guidelines for fasting triglyceride, December 2011. Performed By: #### F TI, FE #### [facility] [address] [place], [place] [id number] Emergency Dispatcher: Otoniel Ash MD #### TSH, LIPR, CP, GLYHGB, CDP #### [facility] [address] [place] [address] Emergency Dispatcher: Elisabeth Worthy MD Cholesterol in VLDL [Mass/Vol] NOT REPORTED Normal 04-16 [facility] Comment on above: Performed By: #### F TI, FE #### [facility] [address] [place], [place] [id number] Emergency Dispatcher: Otoniel Ash MD #### TSH, LIPR, CP, GLYHGB, CDP #### [facility] [address] [place] [address] Emergency Dispatcher: Elisabeth Worthy MD Metabolic Panelon 10-07-2019 GFR/1.73 sq M predicted among non-blacks MDRD (S/P/Bld) [Vol rate/Area] [place] Comment on above: Stage 1: Some [...] body mass. Additional eGFR calculator available at: http://www.[employer].MaSpatule.com/multiple_crcl_2011.htm Otheron 10-07-2019 Interpretation and review of laboratory results Abnormal [place] TSH without Reflexon 020 TSH Qn 1.12 m[IU]/L [place] Thyroid Stim. Horm.on 2019 TSH Qn 1.12 m[IU]/L Normal 0.30-5.00 [facility] Comment on above: Performed By: #### F TI, FE #### [facility] [address] [place] [address] Emergency Dispatcher: Otoniel Ahs MD #### TSH, LIPR, CP, GLYHGB, CDP #### [facility] [address] [place] [address] Emergency Dispatcher: Elisabeth Worthy MD Operative Reporton 8 Operative Report MR#: [id number] [facility] Pt. Name: Xena Ewing Room #: 0C Discharge Date: Birthdate: 1955 OPERATIVE REPORTDATE OF SURGERY: 03/17/2018SURGEON: Bart Holcomb M.D.FISH FLIPPER: Carlton Galicia M.D.PREOPERATIVE DIAGNOSIS: Right recurrent de [...] Dict: 03/17/2018/10:00 Finn/Chad Andino Trans: 03/17/2018 11:55 A/Marissa_[id number]: Anamika Benavides M.D. [address], [facility] [id number] Normal [facility] POC GLUCOSE LABon 03-17-2018 Glucose mass conc 89 mg/dL Normal 70-100 [facility] Comment on above: Performed By: #### [id number] ####[facility] [place] [address], [facility] Vital Signs Date Time Vital Sign Value Performing Clinician Facility 10-23-2024 09:44-0400 Diastolic blood pressure 78 mm[Hg] Victoria Saab MD Work Phone: [facility] 10-23-2024 09:44-0400 Systolic blood pressure 138 mm[Hg] Victoria Saab MD Work Phone: [facility] 10-01-2024 09:29-0400 Body height 165.1 cm Semaj Brown DPM Work Phone: [facility] 10-01-2024 09:29-0400 Body mass index (BMI) [Ratio] 21.47 kg/m2 Semaj Brown DPM Work Phone: [facility] 10-01-2024 09:29-0400 Body weight 58.51 kg Semaj Brown DPM Work Phone: [facility] 10-01-2024 09:29-0400 Respiratory rate 18 /min Semaj Brown DPM Work Phone: [facility] 09-10-2024 09:18-0400 Body height 165.1 cm Semaj Brown DPM Work Phone: [facility] 09-10-2024 09:18-0400 Body mass index (BMI) [Ratio] 21.47 kg/m2 Semaj Brown DPM Work Phone: [facility] 09-10-2024 09:18-0400 Body weight 58.51 kg Semaj Brown DPM Work Phone: [facility] 09-10-2024 09:18-0400 Respiratory rate 18 /min Semaj Brown DPM Work Phone: [facility] 08-27-2024 08:42-0400 Body height 165.1 cm Semaj Brown DPM Work Phone: [facility] 08-27-2024 08:42-0400 Body mass index (BMI) [Ratio] 21.47 kg/m2 Semaj Brown DPM Work Phone: [facility] 08-27-2024 08:42-0400 Body weight 58.51 kg Semaj Brown DPM Work Phone: [facility] 08-27-2024 08:42-0400 Respiratory rate 18 /min Semaj Brown DPM Work Phone: [facility] 08-13-2024 08:41-0400 Body height 165.1 cm Semaj Brown DPM Work Phone: [facility] 08-13-2024 08:41-0400 Body mass index (BMI) [Ratio] 21.47 kg/m2 Semaj Brown DPM Work Phone: [facility] 08-13-2024 08:41-0400 Body weight 58.51 kg Semaj Brown DPM Work Phone: [facility] 08-13-2024 08:41-0400 Respiratory rate 18 /min Semaj Brown DPM Work Phone: [facility] 07-30-2024 09:19-0400 Body height 165.1 cm Semaj Brown DPM Work Phone: [facility] 07-30-2024 09:19-0400 Body mass index (BMI) [Ratio] 21.47 kg/m2 Semaj Brown DPM Work Phone: [facility] 07-30-2024 09:19-0400 Body weight 58.51 kg Semaj Brown DPM Work Phone: [facility] 07-30-2024 09:19-0400 Respiratory rate 16 /min Semaj Brown DPM Work Phone: [facility] 07-09-2024 08:48-0400 Body height 165.1 cm Semaj Brown DPM Work Phone: [facility] 07-09-2024 08:48-0400 Body mass index (BMI) [Ratio] 21.47 kg/m2 Semaj Brown DPM Work Phone: [facility] 07-09-2024 08:48-0400 Body weight 58.51 kg Semaj Brown DPM Work Phone: [facility] [place] 07-09-2024 08:48-0400 Respiratory rate 18 /min Semaj Brown DPM Work Phone: [facility] [place] 06-01-2024 11:12-0400 Body mass index (BMI) [Ratio] 21.6 kg/m2 Severo Patricio DO Work Phone: [facility] [place] 06-01-2024 11:12-0400 Body weight 58.88 kg Severo Patricio DO Work Phone: [facility] [place] 06-01-2024 11:12-0400 Diastolic blood pressure 74 mm[Hg] Severo Patricio DO Work Phone: [facility] [place] 06-01-2024 11:12-0400 Systolic blood pressure 124 mm[Hg] Severo Patricio DO Work Phone: [facility] [place] 05-28-2024 11:26-0400 Body height 165.1 cm Semaj Brown DPM Work Phone: [facility] [place] 05-28-2024 11:26-0400 Body mass index (BMI) [Ratio] 21.47 kg/m2 Semaj Benitez DPM Work Phone: [facility] [place] 05-28-2024 11:26-0400 Body weight 58.51 kg Semaj Brown DPM Work Phone: [facility] [place] 05-28-2024 11:26-0400 Respiratory rate 18 /min Semaj Benitez DPM Work Phone: [facility] [place] 04-09-2024 10:48-0500 Body height 165.1 cm Semaj Benitez DPM Work Phone: [facility] [place] 04-09-2024 10:48-0500 Body mass index (BMI) [Ratio] 21.47 kg/m2 Semaj Brown DPM Work Phone: [facility] [place] 04-09-2024 10:48-0500 Body weight 58.51 kg Semaj Brown DPM Work Phone: [facility] [place] 04-09-2024 10:48-0500 Respiratory rate 18 /min Semaj Brown DPM Work Phone: [facility] [place] 03-19-2024 15:44-0500 Body height 165.1 cm Semaj Benitez DPM Work Phone: [facility] [place] 03-19-2024 15:44-0500 Body mass index (BMI) [Ratio] 21.47 kg/m2 Semaj Benitez DPM Work Phone: [facility] [place] 03-19-2024 15:44-0500 Body weight 58.51 kg Semaj Benitez DPM Work Phone: [facility] [place] 03-19-2024 15:44-0500 Respiratory rate 18 /min Semaj Benitez DPM Work Phone: [facility] [place] 02-05-2024 14:03-0500 Blood Pressure Location Rubén NILL [facility] 02-05-2024 14:03-0500 Diastolic blood pressure 84 mm[Hg] Rubén NILL [facility] 02-05-2024 14:03-0500 Heart rate 72 /min Rubén NILL [facility] 02-05-2024 14:03-0500 Respiratory rate 16 /min Rubén NILL [facility] 02-05-2024 14:03-0500 Systolic blood pressure 132 mm[Hg] Rubén NILL [facility] 10-23-2022 11:13-0400 Body height 165.1 cm Claire West MD Work Phone: [facility] 10-23-2022 11:13-0400 Body weight 73.07 kg Claire West MD Work Phone: [facility] 10-23-2022 11:13-0400 Diastolic blood pressure 71 mm[Hg] Claire West MD Work Phone: [facility] 10-23-2022 11:13-0400 Heart rate 77 /min Claire West MD Work Phone: [facility] 10-23-2022 11: Systolic blood pressure 125 mm[Hg] Claire West MD Work Phone: [facility] Encounters Encounter Date Encounter Type Care Provider Facility Start: 11-06-2024 End: 11-06-2024 ambulatory VICTORIA SAAB Not Available Start: 11-06-2024 End: 11-06-2024 Postop follow up visit related to original px Victoria Saab [facility] Comment on above: Encounter for remova l of sutures (Primary Dx) Start: 10-23-2024 End: 10-23-2024 Bamboo flowsvandana Saab MD [facility] Start: 10-23-2024 End: 10-23-2024 Bamboo flowsheet Victoria Saab MD Work Phone: [facility] Start: 10-23-2024 End: 10-23-2024 Patient encounter procedure Victoria Saab MD Work Phone: [facility] Comment on above: 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 Start: 10-23-2024 End: 10-23-2024 ambulatory VICTORIA SAAB Not Available Start: 10-19-2024 End: 10-19-2024 ambulatory EVERETT SILVA Not Available Start: 10-19-2024 End: 10-19-2024 Patient encounter procedure Everett Silva WALLET ASSEMBLER Work Phone: [facility] Comment on above: Osteopenia of hip, u nspecified laterality (Primary Dx) Start: 10-01-2024 End: 10-01-2024 Bamboo flowsheet Semaj Benitez DPM Work Phone: [facility] Start: 10-01-2024 End: 10-01-2024 Bamboo flowsheet Semaj Benitez DPM Work Phone: [facility] Start: 10-01-2024 End: 10-01-2024 ambulatory SEMAJ BENITEZ Not Available Start: 10-01-2024 End: 10-01-2024 Office outpatient visit 15 minutes Semaj Benitez DPM Work Phone: [facility] Comment on above: Neoplasm of uncertai n behavior of skin (Primary Dx) Start: 09-16-2024 End: 09-16-2024 Office outpatient visit 25 minutes Marianna Herrera MD Work Phone: [facility] Comment on above: Other atopic dermati tis (Primary Dx); Neoplasm of unspecified behavior of bone, soft tissue, and skin Start: 09-16-2024 End: 09-16-2024 ambulatory MARIANNA HERRERA Not Available Start: 09-16-2024 End: 09-16-2024 Bamedmund Herrera MD Work Phone: [facility] Start: 09-16-2024 End: 09-16-2024 Bamboo flowsvandana Herrera MD Work Phone: [facility] Start: 09-10-2024 End: 09-10-2024 Bamboo flowsheet Semaj Benitez DPM Work Phone: [facility] Start: 09-10-2024 End: 09-10-2024 Bamboo flowsheet Semaj Benitez DPM Work Phone: [facility] Start: 09-10-2024 End: 09-10-2024 ambulatory SEMAJ BENITEZ Not Available Start: 09-10-2024 End: 09-10-2024 Office outpatient visit 15 minutes Semaj Benitez DPM Work Phone: [facility] Comment on above: Verruca plantaris (P rimary Dx); Foot pain, left; Neoplasm of uncertain behavior of skin Start: 09-09-2024 End: 09-09-2024 Patient encounter procedure Alejandra Calhoun MD Work Phone: Otolaryngology Comment on above: 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); Tinnitus, unspecified laterality; Temporomandibular joint disorder Start: 09-09-2024 End: 09-09-2024 ambulatory ANAMIKA BENAVIDES Facility:[facility] Start: 08-27-2024 End: 08-27-2024 Bamboo flowsheet Semaj Benitez DPM Work Phone: [facility] Start: 08-27-2024 End: 08-27-2024 Bamboo flowsheet Semaj Benitez DPM Work Phone: [facility] Start: 08-27-2024 End: 08-27-2024 Office outpatient visit 15 minutes Semaj Benitez DPM Work Phone: [facility] Comment on above: Neoplasm of uncertai n behavior of skin (Primary Dx); Verruca plantaris; Foot pain, left Start: 08-27-2024 End: 08-27-2024 ambulatory SEMAJ BENITEZ Not Available Start: 08-14-2024 End: 08-14-2024 Transcribe Orders Anamika Benavides MD Work Phone: Referring Physician Comment on above: Tinnitus, unspecifie d laterality (Primary Dx) Start: 08-13-2024 End: 08-13-2024 Bamboo flowsheet Semaj Benitez DPM Work Phone: [facility] Start: 08-13-2024 End: 08-13-2024 Bamboo flowsheet Semaj Benitez DPM Work Phone: [facility] Start: 08-13-2024 End: 08-13-2024 Patient encounter procedure Semaj Benitez DPM Work Phone: [facility] Comment on above: Neoplasm of uncertai n behavior of skin (Primary Dx) Start: 08-13-2024 End: 08-13-2024 ambulatory SEMAJ BENITEZ Not Available Start: 07-30-2024 End: 07-30-2024 Bamboo flowsheet Semaj Benitez DPM Work Phone: [facility] Start: 07-30-2024 End: 07-30-2024 Bamboo flowsheet Semaj Finn Eli DPM Work Phone: [facility] Start: 07-30-2024 End: 07-30-2024 Patient encounter procedure Semaj Finn Eli DPM Work Phone: [facility] Comment on above: Verruca plantaris (P rimary Dx); Foot pain, right; Foot pain, left Start: 07-30-2024 End: 07-30-2024 ambulatory SEMAJ BENITEZ Not Available Start: 07-09-2024 End: 07-09-2024 Bamboo flowsheet Semaj Benitez DPM Work Phone: [facility] Start: 07-09-2024 End: 07-09-2024 Bamboo flowsheet Semaj Benitez DPM Work Phone: [facility] Start: 07-09-2024 End: 07-09-2024 Patient encounter procedure Semaj Finn Eli DPM Work Phone: [facility] Comment on above: Verruca plantaris (P rimary Dx); Foot pain, right; Foot pain, left Start: 07-09-2024 End: 07-09-2024 ambulatory SEMAJ BENITEZ Not Available Start: 06-01-2024 End: 06-01-2024 Bamboo flowsheet Severo Patricio DO Work Phone: [facility] Start: 06-01-2024 End: 06-01-2024 Bamboo flowsheet Severo Patricio DO Work Phone: [facility] Start: 06-01-2024 End: 06-01-2024 Patient encounter procedure Severo Patricio DO Work Phone: [facility] Work Phone: Start: 06-01-2024 End: 06-01-2024 Periodic preventive med est patient 65yrs& older Severo Curry DO Work Phone: [facility] Comment on above: Well woman exam with routine gynecological exam; Breast cancer screening by mammogram; Postmenopausal state Start: 06-01-2024 End: 06-01-2024 ambulatory SEVERO CURRY Not Available Start: 05-28-2024 End: 05-28-2024 Bamboo flowsheet Semaj Benitez DPM Work Phone: [facility] Start: 05-28-2024 End: 05-28-2024 Bamboo flowsheet Semaj Benitez DPM Work Phone: [facility] Start: 05-28-2024 End: 05-28-2024 ambulatory SEMAJ BENITEZ Not Available Start: 05-28-2024 End: 05-28-2024 Patient encounter procedure Semaj Benitez DPM Work Phone: [facility] Comment on above: 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 (Primary Dx); Verruca plantaris; Foot pain, right; Foot pain, left Start: 04-15-2024 End: 04-15-2024 ambulatory Rubén MANUEL Facility:[id number] Start: 04-09-2024 End: 04-09-2024 Bamboo flowsheet Semaj Benitez DPM Work Phone: [facility] Start: 04-09-2024 End: 04-09-2024 Bamboo flowsheet Semaj Benitez DPM Work Phone: [facility] Start: 04-09-2024 End: 04-09-2024 Patient encounter procedure Semaj Benitez DPM Work Phone: [facility] Comment on above: Verruca plantaris (P rimary Dx); Foot pain, right; Foot pain, left Start: 04-09-2024 End: 04-09-2024 ambulatory SEMAJ BENITEZ Not Available Start: 03-19-2024 End: 03-19-2024 Office outpatient visit 15 minutes Semaj Benitez DPM Work Phone: [facility] Comment on above: Neoplasm of uncertai n behavior of skin (Primary Dx); Verruca plantaris; Foot pain, right; Foot pain, left; Pain due to onychomycosis of toenails of both feet Start: 03-19-2024 End: 03-19-2024 ambulatory SEMAJ BENITEZ Not Available Start: 03-19-2024 End: 03-19-2024 Bamboo flowsheet Semaj Benitez DPM Work Phone: [facility] Start: 03-19-2024 End: 03-19-2024 Bamboo flowsheet Semaj Benitez DPM Work Phone: [facility] Start: 02-06-2024 End: 02-06-2024 ambulatory GEORGES BURNS Facility[place] [place] Start: 02-06-2024 End: 02-06-[address] GEORGES BURNS [facility] Start: 02-05-2024 End: 02-05-2024 ambulatory Rubén MANUEL Facility:[facility] Start: 02-05-2024 End: 02-05-2024 Patient encounter procedure Rubén MANUEL [facility] Start: 12-27-2023 End: 12-27-2023 Patient encounter procedure MD Anamika Benavides Work Phone: [facility] Work Phone: Start: 12-27-2023 End: 12-27-2023 ambulatory MD Anamika Benavides Work Phone: [facility] Work Phone: Start: 12-17-2023 End: 12-17-2023 Bamboo flowsheet Shirin A Felter ENVIRONMENTAL ANALYST-SUPERVISOR ADVICE Work Phone: [facility] Start: 12-17-2023 End: 12-17-2023 Bamboo flowsheet Shirin A Felter ENVIRONMENTAL ANALYST-SUPERVISOR ADVICE Work Phone: [facility] Start: 12-17-2023 End: 12-17-2023 Office outpatient new 20 minutes Shirin Briseno Felter ENVIRONMENTAL ANALYST-SUPERVISOR ADVICE Work Phone: [facility] Comment on above: Other nonthrombocyto penic purpura (CMS/HCC) (Primary Dx); Actinic keratosis Start: 12-17-2023 End: 12-17-2023 ambulatory SHIRIN A FELTER Not Available Start: 12-24-2022 End: 12-24-2022 ambulatory MD Anamika Benavides Work Phone: [facility] Work Phone: Start: 12-24-2022 End: 12-24-2022 Patient encounter procedure MD Anamika Benavides Work Phone: [facility] Work Phone: Start: 10-23-2022 End: 10-23-2022 Patient encounter procedure Claire West MD Work Phone: General Surgery Comment on above: Ventral hernia witho ut obstruction or gangrene (Primary Dx) Start: 04-19-2022 End: 04-19-2022 ambulatory DESTINI DOOLEY Facility:[facility] Start: 01-05-2022 End: 01-06-[address] ANAMIKA BENAVIDES Facility:[facility] Start: 12-21-2021 End: 12-21-2021 ambulatory MD Anamika Benavides Work Phone: [facility] Work Phone: Start: 12-21-2021 End: 12-21-2021 Patient encounter procedure MD Anamika Benavides Work Phone: [facility] Start: 11-09-2021 End: 11-10-[address] ANAMIKA BENAVIDES Facility:[facility] Start: 08-31-2021 End: 08-31-[address] ANAMIKA EBNAVIDES Facility:[facility] Start: 06-29-2021 End: 06-29-[address] ANAMIKA BENAVIDES Facility:[facility] Start: 06-21-2021 End: 06-22-[address] ANAMIKA BENAVIDES Facility:[facility] Start: 06-08-2021 End: 06-09-[address] ANAMIKA BENAVIDES Facility:[facility] Start: 10-13-2019 End: 10-14-2019 Patient encounter procedure [facility] Start: 10-13-2019 End: 10-13-2019 Subsequent hospital visit by physician Anamika Benavides [facility] Start: 10-07-2019 End: 10-08-2019 Patient encounter procedure [facility] Start: 10-07-2019 End: 10-07-2019 Subsequent hospital visit by physician [facility] Drawing Room [facility] Comment on above: Arrived Start: 03-17-2018 End: 03-18-2018 Patient encounter procedure GIOVANI AIKENA Facility:[facility] Start: 02-14-2018 End: 02-15-2018 Patient encounter procedure DEFAULT PHYSICIAN Facility:[facility] Procedures Date Procedure Procedure Detail Performing Clinician Start: 10-23-2024 SKIN REPAIR Victoria manuel MD Work Phone: Start: 10-23-2024 MOHS SURGERY Victoria manuel MD Work Phone: Start: 09-16-2024 SKIN / NAIL BIOPSY Varindernahum Herrera MD Work Phone: Start: 12-27-2023 Screening mammograph y of bilateral breasts MD Anamika Benavides Work Phone: Start: 12-17-2023 CRYOTHERAPY SKIN LESION Shirin Escobar ENVIRONMENTAL ANALYST-SUPERVISOR ADVICE Work Phone: Start: 12-24-2022 Screening mammograph y of bilateral breasts MD Anamika Benavides Work Phone: Start: 04-19-2022 Mammography Shirin alvarez ENVIRONMENTAL ANALYST-SUPERVISOR ADVICE Work Phone: Start: 12-21-2021 Screening mammograph y of bilateral breasts MD Anamika Benavides Work Phone: Start: 10-13-2019 Virus centrifuge enh ncd id imfluor stain ea ANAMIKA HOBabar Start: 10-13-2019 BLOOD OCCULT STOOL S CREEN [...] count complete auto&auto difrntl wbc Anamika M Makayla Work Phone: Start: 10-07-2019 Comprehensive metabo lic panel Anamika M Hoy Work Phone: Start: 10-07-2019 Hemoglobin glycosylated a1c Anamika M Makayla Work Phone: Start: 10-07-2019 Lipid panel Anamkia M Hoy Work Phone: Start: 10-07-2019 Thyroid horm uptk/th yroid hormone binding ratio Anamika M Makayla Work Phone: Start: 10-07-2019 Lipid 1996 panel - S sammi or Plasma Anamika Benavides MD Work Phone: Start: 03-17-2018 ANESTH LOWER ARM SURGERY [facility]OUCHRA HARPER Start: 03-17-2018 INCISION OF TENDON SHEATH ABDULAZIM JI Appendectomy Rubén MANUEL Colonoscopy Rubén MANUEL Decompression of med vernon nerve Rubén MANUEL Re-release of carpal tunnel Rubén MANUEL Total abdominal hysterectomy with bilateral salpingo-oophorectomy Rubén ACEVEDOJonnie Plan of Treatment Date Care Activity Detail Author Start: 12-12-2031 RSV Vaccine (1 - 1-dose 75+ series) RSV Vaccine (1 - 1-dose 75+ series) [facility] Start: 06-01-2028 DTaP/Tdap/Td vaccine (2 - Td) DTaP/Tdap/Td vaccine (2 - Td) [facility] [place] Start: 06-01-2028 Urine microalbumin profile DTaP,Tdap,Td Vaccine (2 - Td or Tdap) [facility] Start: 06-03-2025 End: 06-03-2025 Patient encounter procedure [facility] Start: 04-28-2025 End: 04-28-2025 Patient encounter procedure 04/28/2025 10:45 AM EST Office Visit [facility] [address] [place] [address] Marianna Herrera MD [address] [place] [address] [facility] Start: 11-19-2024 End: 11-19-2024 Patient encounter procedure 11/19/2024 4:40 PM EDT Office Visit [facility] [address] [facility] [address] [place] [id number] Semaj Benitez DPM [address] [facility] [address] [place] [address] [facility] Start: 11-16-2024 Influenza vaccination [facility] Start: 11-06-2024 End: 11-06-2024 Patient encounter procedure 11/06/2024 10:30 AM EDT Office Visit [facility] [address] [place] [address] Victoria Saab MD [address] [place] [address] [facility] Start: 10-23-2024 End: 10-23-2024 Patient encounter procedure [facility] Comment on above: Arrived Start: 10-06-2024 Lipid panel [facility] Start: 10-01-2024 End: 10-01-2024 Patient encounter procedure 10/01/2024 9:10 AM EDT Office Visit [facility] [address] [place] [address] Semaj Benitez, DPM [address] [address] [facility] Start: 09-16-2024 End: 09-16-2024 Patient encounter procedure 09/16/2024 2:35 PM EDT Office Visit [facility] [address] [place] [id number] Marianna Herrera MD [address] [place] [address] Arrived [facility] Comment on above: Arrived Start: 08-27-2024 End: 08-27-2024 Patient encounter procedure 08/27/2024 8:50 AM EDT Office Visit [facility] [address] [place] [address] Semaj Benitez DPM [address] [address] Neoplasm of uncertain behavior of skin (Primary Dx) [facility] Comment on above: Neoplasm of uncertain behavior of skin ( Primary Dx) Start: 08-13-2024 End: 08-13-2024 Patient encounter procedure 08/13/2024 8:40 AM EDT Office Visit [facility] [address] [place] [address] Semaj Benitez DPM [address] [address] Neoplasm of uncertain behavior of skin (Primary Dx) [facility] Comment on above: Neoplasm of uncertain behavior of skin ( Primary Dx) Start: 08-06-2024 End: 08-06-2024 Patient encounter procedure 08/06/2024 11:20 AM EDT Procedure Visit [facility] [address] [facility] [address] [place] [address] Semaj Benitez DPM [address] [address] [facility] Start: 07-30-2024 End: 07-30-2024 Patient encounter procedure 07/30/2024 9:30 AM EDT Office Visit [facility] [address] [facility] [address] [place] [address] Semja Benitez DPM [address] [address] Verruca plantaris (Primary Dx); Foot pain, right; Foot pain, left [facility] Comment on above: Verruca plantaris (Primary Dx); Foot pain, right; Foot pain, left Start: 07-09-2024 End: 07-09-2024 Patient encounter procedure 07/09/2024 8:50 AM EDT Office Visit [facility] [address] [facility] [address] [place] [address] Semaj Benitez DPM [address] [address] Arrived [facility] Comment on above: Arrived Start: 06-11-2024 End: 06-11-2024 Patient encounter procedure 06/11/2024 11:30 AM EDT Office Visit [facility] [address] [facility] [address] [place] [address] Semaj Benitez DPM [address] [address] [facility] Start: 06-01-2024 End: 06-01-2025 [...] [facility] [address] [place] [address] Semaj Benitez DPM [address] [address] [facility] Start: 04-09-2024 End: 04-09-2024 Patient encounter procedure 04/09/2024 11:00 AM EST Office Visit [facility] [address] [place] [address] Semaj Benitez DPM [address] [address] Verruca plantaris (Primary Dx); Foot pain, right; Foot pain, left [facility] Comment on above: Verruca plantaris (Primary Dx); Foot pain, right; Foot pain, left Start: 03-19-2024 End: 03-19-2024 Patient encounter procedure 03/19/2024 3:50 PM EST Office Visit [facility] [address] [place] [phone] Semaj Benitez DPM [address] [place] [address] [facility] Start: 03-18-2024 Advance Directive Discussion Advance Directive Discussion [facility] Start: 03-18-2024 Medicare [facility] Annual Wellness Visit Medicare [facility] Annual Wellness Visit [facility] Start: 12-17-2023 End: 12-17-2023 Patient encounter procedure 12/17/2023 11:05 AM EDT Office Visit [facility] [address] [place] [address] Shirin Escobar APRN-SUPERVISOR ADVICE [address] [place] [address] Arrived [facility] Comment on above: Arrived Start: 11-17-2023 Covid-19 Vaccine ( season) Covid-19 Vaccine ( season) [facility] Start: 11-17-2023 Influenza vaccination Influenza Vaccine (#1) [facility] Start: 04-19-2023 Screening for malignant neoplasm of breast [facility] Start: 11-16-2022 Influenza vaccination INFLUENZA (#1) [facility] Start: 10-06-2022 Diabetes Screening Diabetes Screening [facility] Start: 04-21-2022 COVID-19 VACCINE (5 - Pfizer series) COVID-19 VACCINE (5 - Pfizer series) [facility] Start: 03-18-2022 ADVANCE DIRECTIVE DISCUSSION ADVANCE DIRECTIVE DISCUSSION [facility] Start: 03-18-2022 DEPRESSION ASSESSMENT DEPRESSION ASSESSMENT [facility] Start: 2021 BONE DENSITY BONE DENSITY [facility] Start: 2021 Pneumococcal Vaccine: 65+ Years (2 of 2 - PCV) Pneumococcal Vaccine: 65+ Years (2 of 2 - PCV) [facility] Start: 2021 Screening for osteoporosis Bone Density Screening [facility] Start: 11-17-2019 Influenza vaccination Flu vaccine (#1) [place], [place] Start: 06-27-2016 Pneumococcal Vaccine: 50+ (2 of 2 - PCV) Pneumococcal Vaccine: 50+ (2 of 2 - PCV) [facility] Start: 06-27-2016 Pneumococcal Vaccine: 65+ Years (2 of 2 - PCV) Pneumococcal Vaccine: 65+ Years (2 of 2 - PCV) [facility] Start: 2006 Influenza vaccination LUNG CANCER SCREENING [facility] Start: 2006 Screening for malignant neoplasm of breast Breast cancer screen [place], [place] Start: 2006 Screening for malignant neoplasm of colon Colon cancer screen colonoscopy [place], [place] Start: 2006 Screening for malignant neoplasm of lung Lung Cancer Screening [facility] Start: 2006 Shingles Vaccine (1 of 2) Shingles Vaccine (1 of 2) [facility] [place] [place] Start: 2006 SHINGRIX VACCINE (1 of 2) SHINGRIX VACCINE (1 of 2) [facility] Start: 2001 COLOGUARD (FIT-DNA) COLOGUARD (FIT-DNA) [facility] Start: 2001 Colonoscopy COLONOSCOPY [facility] Start: 2001 COLORECTAL CANCER SCREENING COLORECTAL CANCER SCREENING [facility] Start: [address] COLONOGRAPHY [facility] Start: 2001 DIABETES SCREEN DIABETES SCREEN [facility] Start: 2001 FECAL OCCULT BLOOD FECAL OCCULT BLOOD [facility] Start: 2001 LIPID SCREEN LIPID SCREEN [facility] Start: 2001 Screening for malignant neoplasm of colon [facility] Start: 2001 SIGMOIDOSCOPY SIGMOIDOSCOPY [facility] Start: 1996 Lipid panel Lipid screen [place], [place] Start: 1996 Mammography MAMMOGRAM [facility] Start: 1996 Screening for malignant neoplasm of breast Mammogram Screening [facility] Start: 1977 Screening for malignant neoplasm of cervix Cervical cancer screen [place], [place] Start: 12-12-1975 Urine microalbumin profile DTAP,TDAP,TD (1 - Tdap) [facility] Start: 1974 Anxiety Screening Anxiety Screening [facility] Start: 1974 Depression Screening Depression Screening [facility] Start: 1974 HEPATITIS C SCREENING HEPATITIS C SCREENING [facility] Start: 1974 Hepatitis C screening Hepatitis C Screening [facility] Start: 1974 HIV SCREENING HIV SCREENING [facility] Start: 12-12-1971 HIV screening HIV screen [place], [place] Start: 1962 PNEUMOCOCCAL: 65+ (1 - PCV) PNEUMOCOCCAL: 65+ (1 - PCV) [facility] Start: 1956 Hepatitis C screening Hepatitis C screen [place], [place] Start: 1956 Screening for malignant neoplasm of colon [facility] Dermatopathology exam Dermatopat hology exam Pathology and Cytology Timed Neoplasm of unspecified behavior of bone, soft tissue, and skin Release Upon Ordering for 1 Occurrences starting 09/16/2024 [facility] [employer] Work Phone: Comment on above: Release Upon Ordering for 1 Occurrences starting 09/16/2024 THIN PREP TIS PAP AN D HR HPV DNA THIN PREP TIS PAP AND HR HPV DNA Pathology and Cytology Routine Well woman exam with routine gynecological exam Ordered: 06/01/2024 [facility] [employer] Comment on above: Ordered: 06/01/2024 End: 09-10-2025 [facility] Audiology Routine Tinnitus, unspecified laterality Mixed conductive and sensorineural hearing loss of left ear with restricted hearing of right ear 1 Occurrences starting 09/09/2024 until 09/10/2025 [facility] Work Phone: Comment on above: 1 Occurrences starting 09/09/2024 until 09/10/2025 Immunizations Immunization Date Immunization Notes Care Provider Angie sandoval 12-19-2021 SARS-CoV-2 (COVID-19 ) [id number].[id number] Rubén MANUEL [facility] 04-04-2021 SARS-CoV-2 (COVID-19 ) mRNA BNT-162b2 vax Rubén MANUEL [facility] 12-16-2020 SARS-CoV-2 (COVID-19 ) mRNA BNT-162b2 vax Rubén MANUEL [facility] 11-28-2020 SARS-CoV-2 (COVID-19 ) mRNA BNT-162b2 vax Rubén MANUEL [facility] [place] 06-05-2018 influenza virus vaccine, unspecified formulation Shirin Escobar ENVIRONMENTAL ANALYST-SUPERVISOR ADVICE Work Phone: [facility] 06-01-2018 tetanus toxoid, redu tu diphtheria toxoid, and acellular pertussis vaccine, adsorbed Mth Room [place], [place] Payers Date Payer Category Payer Self-pay [id number] 2023 Medicare (Managed Care) [id number]. [id number] 2023 Medicare [id number] 2022 Medicare [id number] 2019 Unknown [id number] 2019 Unknown [employer] M [employer] CHUCK - EXCHANGE [id number] 2019-Present [phone] [address] [place] [address] [id number] .[id number] 1959 Medicare [id number] 1959 Medicare [id number] 1959 Private Health Insurance [id number] 1956 Unknown [id number] 2.16.840.1.449720.3.579.2.6 47 1956 Unknown [id number] 2.16.840.1.738298.3.579.2.6 47 1956 Unknown [id number] 2.16.840.1.597895.3.579.2.1 73 1956 Unknown [id number] 2.16.840.1.146677.3.579.2.1 73 1956 Unknown [id number] 2.16.840.1.270661.3.579.2.5 93 1956 Unknown [id number] 2.16.840.1.376217.3.579.2.5 93 1956 Unknown [id number] 2.16.840.1.019395.3.579.2.5 93 1956 Unknown [id number] 2.16.840.1.525506.3.579.2.5 93 1956 Unknown [id number] 2.16.840.1.768144.3.579.2.5 93 1956 Unknown [id number] 2.16.840.1.735151.3.579.2.5 93 1956 Unknown [id number] 2.16.840.1.166731.3.579.2.5 93 1956 Unknown [id number] 2.16.840.1.130175.3.579.2.7 27 1956 Unknown [id number] 2.16.840.1.485846.3.579.2.7 27 1956 Unknown [id number] 2.16.840.1.867376.3.579.2.7 27 1956 Unknown [id number] 2.16.840.1.245653.3.579.2.1 259 1956 Unknown [id number] 2.16.840.1.893513.3.579.2.1 259 1956 Unknown [id number] 2.16.840.1.279450.3.579.2.1 259 1956 Unknown [id number] 2.16.840.1.034340.3.579.2.1 259 1956 Unknown [id number] 2.16.840.1.724714.3.579.2.1 259 1956 Unknown [id number] 2.16.840.1.771289.3.579.2.1 259 1956 Unknown [id number] 2.16.840.1.748200.3.579.2.1 259 1956 Unknown [id number] 2.16.840.1.885764.3.579.2.1 259 1956 Unknown [id number] 2.16.840.1.046937.3.579.2.1 259 1956 Unknown [id number] 2.16.840.1.187016.3.579.2.1 259 1956 Unknown [id number] 2.16.840.1.479797.3.579.2.1 259 1956 Unknown [id number] 2.16.840.1.036047.3.579.2.1 259 1956 Unknown [id number] 2.16.840.1.969246.3.579.2.1 259 1956 Unknown [id number] 2.16.840.1.101892.3.579.2.1 259 1956 Unknown [id number] 2.16.840.1.942906.3.579.2.1 259 Medicare Medicare [id number] Unknown [id number] Unknown Unknown HCAP/HFA/FAP Active [id number] Unknown [id number] 2.16840.1.153210.3.579.2.5 31 Social History Date Type Detail Facility Start: 05-31-2018 End: 02-05-2024 Tobacco smoking status MSIS Former smoker [facility] Start: 05-31-2018 [facility] Start: 1955 [facility] Exposure to SARS-CoV -2 (event) Not sure [facility]SE [facility] JUSTICE Start: 1955 Sex Assigned At Female F [facility] Start: 10-23-2022 Tobacco smoking stat us NHIS Smokes tobacco daily [facility] History of tobacco use Cigarette Smoker C [facility] Start: 10-23-2022 End: 10-23-2024 Cigarettes smoked current (pack per day) - Reported 1 [facility] Start: 10-23-2022 End: 03-19-2024 Tobacco use and exposure User of smokeless tobacco [facility] Start: 10-23-2022 End: 11-06-2024 Alcohol intake Lifetime non-drinker (finding) [facility] Start: 10-23-2022 End: 10-23-2024 Tobacco use panel [facility] Start: 10-23-2022 Tobacco Comment [facility] Start: 09-21-2022 End: 03-19-2024 Tobacco smoking status NHIS Never smoked tobacco [facility] Start: 04-27-2023 Alcohol Comment Caffine intake : 2-3 cups per day, coffee; tea [facility] National Score (1-10 0), lower number is lower risk 94 [facility] Functional Status Date Assessment Result Facility 02-05-2024 Functional Status N/A [facility] [place] Clinical Notes 08-31-2021 to 11-06-2024 Victoria Hodge LPN - 11/06/2024 10:30 AM Cy Saab MD - 10/23/2024 9:00 AM Winifred Silva NP - 10/19/2024 9:30 AM Riki Benitez DPM - 10/01/2024 9:10 AM EDT Note Date & Type Note Facility 11-06-2024 History of Present illness Narrative Images from the original note were not included. Suture Removal Patient here for suture removal: No complaints of redness, drainage or swelling at site, compliant with wound care. Location: mid back Procedure Performed: Mohs Micrographic Surgery Date of Procedure: 10/23/2024 Medications: Mupirocin ointment All pertinent medical history, medications, and allergies were reviewed. General Exam: alert, oriented to person, place, and time, normal affect, well appearing A focused exam completed based on patient reported problems, see below: Skin Exam 1. ENCOUNTER FOR REMOVAL OF SUTURES Mid Back Sutures are intact and skin edges are well-approximated. Mild erythema along incision line but no signs of infection noted, Surrounding mild contact dermatitis from bandage. Suture Removal: Procedure: Sutures were removed without difficulty. Tincture of Benzoin was applied around site in preparation of steri-strips. Steri-strips were applied Post-Procedure instructions: Instructed to discontinue wound care and to keep steri strips on for at least 5-7 days. Surrounding mild contact dermatitis from bandage. Recommended OTC hydrocortisone cream, avoid applying directly on incision line. Next Visit: as scheduled documented in this encounter [facility] 10-23-2024 History of Present illness Narrative Images [...] CARCINOMA (BCC) OF UPPER BACK Mid Back [place] macule at biopsy site Re-measured today at 1.3 x 1.0 cm Mohs surgery Consent obtained: written (The rationale for Mohs as well as the risks, benefits, and alternatives. The risks of infection, scarring, bleeding, prolonged wound healing, incomplete removal, allergy to anesthesia or meds, nerve injury, and recurrence were addressed.) Almyra Protocol: Procedure explained and questions answered to patient or proxy's satisfaction: Yes Test results available and properly labeled: Yes Pathology report reviewed: Yes Photo or diagram used for site identification: Yes Site/side marked: Yes Anesthesia: Anesthesia method: local infiltration Local anesthetic: lidocaine 1% WITH epi and sodium bicarbonate Procedure Details: Biopsy accession number: [id number] Biopsy lab: [facility] Date of biopsy: 09/16/2024 Frozen section biopsy [...] tissue sections, stained, and evaluated by Dr. Saab for interpretation of deep and peripheral margins. [...] tissue sections, stained, and evaluated by Dr. Saab for interpretation of deep and peripheral margins. [...] 14 day S/R documented in this encounter [facility] 10-19-2024 History of Present illness Narrative Reason for Appointment: Patient ID: Xena Ewing is a 68 y.o. female who presents for No chief complaint on file. Patient presents today via telephone call for a telehealth appointment. Patients Phone #: [phone] (mobile) Date: 10/19/2024 Time: 10:14 AM of [...] RT 1997, LT 1998 DE QUERVAIN'S RELEASE 2006/2007 INNER EAR SURGERY 2005 repair ear drum LAPAROSCOPY DIAGNOSTIC / BIOPSY / ASPIRATION / LYSIS TOTAL ABDOMINAL HYSTERECTOMY W/ BILATERAL SALPINGOOPHORECTOMY 1995 TYMPANOPLASTY 2006 ULNAR NERVE REPAIR Right 2001 WRIST SURGERY Left 2016 Allergies Allergen Reactions Ciprofloxacin Other Reaction(s): Patient [...] Everett Silva NP documented in this encounter [facility] 10-01-2024 History of Present illness Narrative Patient: Xena Ewing : 1955 PCP: Anamika Benavides MD SUBJECTIVE Patient presents today for follow [...] PRN pain Reviewed path report today. Semaj Benitez DPM documented in this encounter [facility] 09-16-2024 History of Present illness Narrative Images [...] BONE, SOFT TISSUE, AND SKIN Mid Back [place] papule Lesion biopsy Type of biopsy: tangential [...] any new/changing lesions documented in this encounter [facility] 09-10-2024 History of Present illness Narrative Patient: Xena Ewing : 1955 PCP: Anamika Benavides MD SUBJECTIVE Patient presents today for follow [...] patient was instructed on post-op care. Semaj Benitez DPM documented in this encounter [facility] 09-09-2024 Note HNO ID: [id number] Author: ALEJANDRA CALHOUN MD Service: ? Author Type: Physician Type: Progress Notes Filed: 09/09/2024 16:46 Note Text: SECTION OF OTOLOGY, NEUROTOLOGY AND LATERAL SKULL BASE SURGERY Department of Otolaryngology - Head and Neck Surgery [facility] [place] September 09, 2024 09/09/2024 Xena Ewing is a 68 year old female referred by Anamika Benavides MD for tinnitus History of Present Illness [...] Tobacco Use: High Risk (08/27/2024) Received from [facility] Patient History Smoking Tobacco Use: Never Smokeless [...] side and sensorineu (more content not included)... [facility] 09-09-2024 History of Present illness Narrative Images from the original note were not included. SECTION OF OTOLOGY, NEUROTOLOGY AND LATERAL SKULL BASE SURGERY Department of Otolaryngology - Head and Neck Surgery [facility] [place] September 09, 2024 09/09/2024 Xena Ewing is a 68 year old female referred by Anamika Benavides MD for tinnitus History of Present Illness [...] Tobacco Use: High Risk (08/27/2024) Received from [facility] Patient History Smoking Tobacco Use: Never Smokeless [...] Referred to [facility] at the [facility] for comprehensive evaluation and treatment [...] concerning findings are noted on imaging. Alejandra Calhoun MD Otology/Neurotology/Lateral Skull-Base Surgery Head and Neck [place] [facility] Medical Decision Making: Problems: Moderate: New problem with uncertain prognosis Data: Unique source(s) for external note(s) reviewed: 1 Unique test result(s) reviewed: 1 Unique test(s) ordered: 1 Risk: Minimal: Minimal risk from testing/treatment Medical Decision Making Level: 4 - Moderate documented in this encounter [facility] 08-27-2024 History of Present illness Narrative Patient: Xena Ewing : 1955 PCP: Anamika Benavides MD SUBJECTIVE Patient presents today for follow [...] foot wet. Reviewed pathology report today Semaj Benitez DPM documented in this encounter [facility] 08-13-2024 History of Present illness Narrative Patient: Xena Ewing : 1955 PCP: Anamika Benavides MD SUBJECTIVE Patient presents today for follow [...] care. Right foot lesion specimen sent to [facility] for pathology report Semaj Benitez DPM documented in this encounter [facility] 07-09-2024 History of Present illness Narrative Patient: Xena Ewing : 1955 PCP: Anamika Benavides MD SUBJECTIVE Patient presents today for follow [...] removal of right foot near future Semaj Benitez DPM documented in this encounter [facility] 06-01-2024 History of Present illness Narrative Reason for Appointment: Patient ID: Xena Ewing is a 68 y.o. female who presents for [employer] Visit Patient presents today for Annual [...] nursing note reviewed. Exam conducted with a hand cigar making supervisor present. Vitals: Estimated body mass index is [...] Severo Curry DO documented in this encounter [facility] 05-28-2024 History of Present illness Narrative Patient: Xena Ewing : 1955 PCP: Anamika Benavides MD SUBJECTIVE Patient presents today for follow [...] given. Application of DSD post procedure. Semaj Benitez DPM documented in this encounter [facility] 04-09-2024 History of Present illness Narrative Patient: Xena Ewing : 1955 PCP: Anamika Benavides MD SUBJECTIVE Patient presents today for follow [...] given. Application of DSD post procedure. Semaj Benitez DPM documented in this encounter [facility] 03-19-2024 History of Present illness Narrative Patient: Xena Ewing : 1955 PCP: Anamika Benavides MD SUBJECTIVE This is a 68 y.o. [...] pathological diagnosis of specimen. Patient may take [id number] NSAID p.r.n. for pain Application of salinocaine [...] given. Application of DSD post procedure. Semaj Benitez DPM documented in this encounter [facility] 02-06-2024 Evaluation + Plan note Diagnostic Tests Pendingvon Willebrand Factor (vWF) Ag 02/06/24Lupus Anticoagulant 02/06/24vWF Activity 02/06/24 [facility] 02-05-2024 Note General Surgery Offi ce/Clinic Note Chief Complaint consultation for positive occult stool HPI Staff 68 year old female presents on consultation from Dr. Benavides for positive occult stool. Denies abdominal or [...] Father. Immunizations Vaccine Date Status SARS-CoV-2 (COVID-19) mRNAMUL.[id number] 12/19/2021 Recorded SARS-CoV-2 ( (more content not included)... [facility] Comment on above: Result Comment: [...] limited to risks of scarring, darker or java web developer pigmentary changes, recurrence, incomplete removal and infection. [...] any new/changing lesions documented in this encounter [facility] 10-23-2022 History of Present illness Narrative GENERAL [...] and Bariatric Surgery cc: Referring provider Anamika Benavides [address] [facility] [id number] Medical Decision Making: Problems: Low: Stable chronic illness Data: Independent interpretation of test from other physician/QHCP Medical Decision Making Level: 3 - Low documented in this encounter [facility] 08-31-2021 Note OPERATIVE NOTE OPERATION DATE: 08/31/2021 PREOPERATIVE DIAGNOSIS: Acute appendicitis. POSTOPERATIVE DIAGNOSIS: Acute appendicitis. PROCEDURE PERFORMED: Laparoscopic appendectomy. SURGEON: Elisabeth Rehman M.D. FISH FLIPPER: PINA Corona ANESTHESIA: General, 0.5% Marcaine for [...] taken to the PACU in fair condition. [facility] Signed and Approved by: DR ELISABETH REHMAN . 09/15/2021 06:33:00 [facility] Evaluation + Plan note No data available for this section [facility] [place] Evaluation note No assessment inform ation available [facility] Work Phone: Evaluation note Diagnosis Ventral hernia without obstruction or gangrene- Primary Ventral hernia, unspecified, without mention of obstruction or gangrene [facility] Other nonthrombocytopenic purpura (CMS/HCC)- Primary Actinic keratosis documented in this encounter [facility]* Diagnosis Neoplasm of uncertain behavior of skin- Primary Verruca plantaris Plantar wart Foot pain, right Pain in soft tissues of limb Foot pain, left Pain in soft tissues of limb Pain due to onychomycosis of toenails of both feet documented in this encounter [facility] HealthcareEvaluation note* Diagnosis Verruca plantaris- Primary Plantar wart Foot pain, right Pain in soft tissues of limb Foot pain, left Pain in soft tissues of limb documented in this encounter [facility] HealthcareEvaluation note* Diagnosis Pain due to onychomycosis of toenails of both feet- Primary Verruca plantaris Plantar wart Foot pain, right Pain in soft tissues of limb Foot pain, left Pain in soft tissues of limb documented in this encounter [facility] HealthcareEvaluation note* Diagnosis Well woman exam with [...] of both feet documented in this encounter [facility] HealthcareEvaluation note* Diagnosis Neoplasm of uncertain behavior of skin- Primary documented in this encounter [facility] Healthcare[facility] note* Diagnosis Tinnitus, unspecified laterality- Primary [facility] Neoplasm of uncertain behavior of skin- Primary Verruca plantaris Plantar wart Foot pain, left Pain in soft tissues of limb documented in this encounter [facility] HealthcareEvaluation note* Diagnosis 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 Tinnitus, unspecified laterality Temporomandibular joint disorder Temporomandibular joint disorders, unspecified [facility] Diagnosis Verruca plantaris- Primary Plantar wart Foot pain, left Pain in soft tissues of limb Neoplasm of uncertain behavior of skin documented in this encounter [facility] Healthcare[facility] note* Diagnosis Other atopic dermatitis- Primary Neoplasm of unspecified behavior of bone, soft tissue, and skin documented in this encounter [facility] note* Diagnosis Neoplasm of uncertain behavior of skin- Primary documented in this encounter [facility] Healthcare[facility] note* Diagnosis Osteopenia of hip, unspecified laterality- Primary documented in this encounter [facility]* Diagnosis 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 documented in this encounter [facility]* Diagnosis Encounter for removal of sutures- Primary [facility]* Semaj Benitez DPM - 07/30/2024 9:30 AM EDT Patient: Xena Ewing : 1955 PCP: Anamika Benavides MD SUBJECTIVE Patient presents today for follow [...] of right foot lesion on follow-up Semaj [facility]z DPM [facility] No data available for this section [facility] Progress note No data available for this section [facility] Summary Purpose Family History No Family [...] FoundDocuments on File Type Date Recorded 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 Advance Directives and Living Will Power of Pulp Maker Advance Directive Response Recorded Date/ Time Advance Directives No June 06, 2 018 3:52pm Chief Complaint and Reason for Visit Chief Complaint Screening Additional Source Comments INFORMATION SOURCE (unrecogn ized section and content) DATE CREATED AUTHOR 03/21/2018 [facility] DATE CREATED AUTHOR AUTHOR'S ORGANIZ ATION 10/14/2019 [facility] DATE CREATED AUTHOR AUTHOR'S ORGANIZ ATION 04/27/2022 [facility] DATE CREATED AUTHOR AUTHOR'S ORGANIZ ATION 01/03/2024 [facility] DATE CREATED AUTHOR AUTHOR'S ORGANIZ ATION 02/08/2024 [facility] DATE CREATED AUTHOR AUTHOR'S ORGANIZ ATION 02/13/2024 [facility] DATE CREATED AUTHOR AUTHOR'S ORGANIZ ATION 04/19/2024 [facility] DATE CREATED AUTHOR AUTHOR'S ORGANIZ ATION 09/10/2024 [facility] DATE CREATED AUTHOR AUTHOR'S ORGANIZ ATION 11/08/2024 [facility] d[facility] Specialists EPIC Care Teams (unrecognized sec tion and content) Team Status: Active Member Role Status Dates Anamika Benavides MD Primary Care Provider Active Team Status: Inactive Member Role Status Dates Anamika Benavides MD Primary Care Provider Active Referral Self Attending Provider Active Professor Of Family Medicine Relationship Specialty Start Date End Date Anamika Benavides MD PCP - General 10/24/04 Anamika Benavides MD [address] [place] [address] Referring Family Medicine 10/05/22 Professor Of Family Medicine Relationship Specialty Start Date End Date Anamika Benavides MD [address] [place] [address] PCP - General Family Medicine 09/21/22 Professor Of Family Medicine Relationship Specialty Start Date End Date Anamika Benavides MD [address] [facility] [place] [address] PCP - General Family Medicine 09/21/22 Team Status: Inactive Member Role Status Dates Anamika Benavides MD Primary Care Provide r, Referring Provider Active Start: December 27, 2023 End: December 27, 2023 Referral Self Attending Provider Active Start: O ct2023 End: December 27, 2023 Professor Of Family Medicine Relationship Specialty Start Date End Date Anamika Benavides MD [address] [facility] [place] [address] PCP - General Family Medicine 09/21/22 Professor Of Family Medicine Relationship Specialty Start Date End Date Anamika Benavides MD [address] [facility] [place] [address] PCP - General Family Medicine 09/21/22 Professor Of Family Medicine Relationship Specialty Start Date End Date Anamika Benavides MD [address] [facility] [place] [address] PCP - General Family Medicine 09/21/22 Professor Of Family Medicine Relationship Specialty Start Date End Date Anamika Benavides MD [address] [facility] [place] [address] PCP - General Family Medicine 09/21/22 Professor Of Family Medicine Relationship Specialty Start Date End Date Anamika Benavides MD [address] [facility] [place] [address] PCP - General Family Medicine 09/21/22 Professor Of Family Medicine Relationship Specialty Start Date End Date Anamika Benavides MD [address] [facility] [place] [address] PCP - General Family Medicine 09/21/22 Professor Of Family Medicine Relationship Specialty Start Date End Date Anamika Benavides MD [address] [facility] [place] [address] PCP - General Family Medicine 09/21/22 Professor Of Family Medicine Relationship Specialty Start Date End Date Anamika Benavides MD [address] [facility] [place] [address] PCP - General Family Medicine 09/21/22 Professor Of Family Medicine Relationship Specialty Start Date End Date Anamika Benavides MD PCP - General 10/24/04 Anamika Benavides MD [address] [place] [address] Referring Family Medicine 10/05/22 Professor Of Family Medicine Relationship Specialty Start Date End Date Anamika Benavides MD PCP - General 10/24/04 Anamika Benavides MD [address] [place] [address] Referring Family Medicine 10/05/22 Professor Of Family Medicine Relationship Specialty Start Date End Date Anamika Benavides MD [address] [facility] [place] [address] PCP - General Family Medicine 09/21/22 Professor Of Family Medicine Relationship Specialty Start Date End Date Anamika Benavides MD [address] [place] [address] PCP - General Family Medicine 09/21/22 Goals [...] or prosecute any alcohol or drug abuse patient.[facility] the event this information is protected by the Federal Confidentiality of Alcohol and Drug Abuse Patient Records regulations: The Federal rules restrict any use of the information to criminally investigate or prosecute any alcohol or drug abuse patient.[facility] Center[facility] the event this information is protected by the Federal Confidentiality of Alcohol and Drug Abuse Patient Records regulations: The Federal rules restrict any use of the information to criminally investigate or prosecute any alcohol or drug abuse patient.[facility] Reason for Visit (unrecogniz [...] Problem Specialty Diagnoses / Procedures Referred By Yolanda t Referred To Contact Ent - Otolaryngology Diagnoses Tinnitus, unspecified laterality Procedures CONSULT TO ENT OFFICE/OUTPATIENT [facility] 60 MINUTES Anamika Benavides MD [address] [place] [address] Phone: tel: fax: Referral ID Status Reason Start Date Expiration Date V isits Requested Visits Authorized [id number] Closed PCP Requested Referral 08/14/2024 08/14/2025 1 1 Reason Comments Follow-up 2wk lesion check Reason Comments Follow-up Bx check Reason Comments Mohs Micrographic Surgery Reason Comments Suture / Staple Removal FOR RECORDS PERTAINING TO PATIENTS WHO ARE [...] BE BASED ON THE PRIMARY CLINICAL RECORDS. [facility] [employer] provides no warranty or guarantee of the accuracy or completeness of information in this document.
--- NOTE | 2024-11-20 11:53 | CT_ITS ---
The [address] [address] Patient Name: GILLIAN HERMOSILLO MRN: [id number] date: 1955 Sex: F Assigned Patient Location: ER Current Patient Location: ER Accession/Order Number: [id number] Exam Date: 11/20/2024 12:55 Report Date: 11/20/2024 13:20 At the request of: ANNALEE CABRALES DO Procedure: CT head/brain wo con CT BRAIN WITHOUT CONTRAST: CLINICAL HISTORY: Headache for the past 4 days COMPARISON: None TECHNIQUE: Contiguous axial unenhanced images were obtained through the brain. This CT exam was performed using one or more following dose reduction techniques: Automated exposure control, adjustment of the mA and/or kV according to patient size, or use of iterative reconstruction technique. FINDINGS: The ventricles are normal in size and position. There are no areas of abnormal attenuation. There is no hemorrhage, mass effect or extra-axial collections. The imaged paranasal sinuses are clear. There is prior left mastoidectomy. The remaining mastoid air cells are clear. CT/CT head/brain wo con IMPRESSION: NO ACUTE INTRACRANIAL ABNORMALITY. Impression dictated by: Megan Lee M.D. 11/20/2024 1:20 PM Dictation Location: [place] [address] Electronically authenticated by: [id number] Y Date: 11/20/2024 13:20
--- NOTE | 2024-11-20 11:53 | CT_ITS ---
The [address] [address] Patient Name: GILLIAN HERMOSILLO MRN: [id number] date: 1955 Sex: F Assigned Patient Location: ER Current Patient Location: Accession/Order Number: [id number] Exam Date: 11/20/2024 12:55 Report Date: 11/20/2024 13:43 At the request of: ANNALEE CABRALES DO Procedure: CT angio neck CTA OF THE HEAD AND NECK WITH CONTRAST CLINICAL DATA: Headaches for the past 4 days. COMPARISON: None Spiral images were obtained through the head and neck following 100 MLO Omnipaque 350. Sagittal and coronal MIP as well as 3-D volume rendered reconstructions of the carotid arteries and [place] reviewed. Stenosis is evaluated using NASCET criteria. This CT exam was performed using one or more following dose reduction techniques: Automated exposure control, adjustment of the mA and/or kV according to patient size, or use of iterative reconstruction technique. There is minimal plaque at the aortic arch and proximal left subclavian artery. There are similar caliber vertebral arteries, without evidence of stenosis or dissection. There is minimal plaque at the bifurcation of the right carotid artery and extending into the external carotid artery. There is no associated stenosis. There is no plaque or luminal narrowing on the left. There is slight reversal of the normal cervical curvature and mild degenerative changes. A large right thyroid nodule is visualized measuring almost 4 x 3.4 x 2.9 cm in size. The upper imaged lungs show minor apical scarring. The distal vertebral, basilar and posterior cerebral arteries are patent. The left posterior communicating artery is visualized however the right is not well seen. There is a small amount of plaque at the left carotid siphon with minimal associated luminal narrowing. The left A1 segment is hypoplastic. The anterior and middle cerebral arteries are otherwise patent, without focal stenosis or suspected thrombosis. No cerebral aneurysms are seen. The dural venous sinuses are patent. CT/CT angio head IMPRESSION: MINOR PLAQUE, WITHOUT SIGNIFICANT ASSOCIATED STENOSIS OR VASCULAR OCCLUSIVE DISEASE. NO EVIDENCE OF ANEURYSM. INCIDENTAL RIGHT THYROID NODULE. THIS WAS ALSO EVALUATED ON RECENT THYROID ULTRASOUND. Impression dictated by: Megan Lee M.D. 11/20/2024 1:43 PM Dictation Location: [employer] Electronically authenticated by: [id number] Y Date: 11/20/2024 13:43
--- NOTE | 2024-11-20 11:53 | CT_ITS ---
The [address] [address] Patient Name: GILLIAN HERMOSILLO MRN: [id number] date: 1955 Sex: F Assigned Patient Location: ER Current Patient Location: Accession/Order Number: [id number] Exam Date: 11/20/2024 12:55 Report Date: 11/20/2024 13:43 At the request of: ANNALEE CABRALES DO Procedure: CT angio neck CTA OF THE HEAD AND NECK WITH CONTRAST CLINICAL DATA: Headaches for the past 4 days. COMPARISON: None Spiral images were obtained through the head and neck following 100 MLO Omnipaque 350. Sagittal and coronal MIP as well as 3-D volume rendered reconstructions of the carotid arteries and [place] reviewed. Stenosis is evaluated using NASCET criteria. This CT exam was performed using one or more following dose reduction techniques: Automated exposure control, adjustment of the mA and/or kV according to patient size, or use of iterative reconstruction technique. There is minimal plaque at the aortic arch and proximal left subclavian artery. There are similar caliber vertebral arteries, without evidence of stenosis or dissection. There is minimal plaque at the bifurcation of the right carotid artery and extending into the external carotid artery. There is no associated stenosis. There is no plaque or luminal narrowing on the left. There is slight reversal of the normal cervical curvature and mild degenerative changes. A large right thyroid nodule is visualized measuring almost 4 x 3.4 x 2.9 cm in size. The upper imaged lungs show minor apical scarring. The distal vertebral, basilar and posterior cerebral arteries are patent. The left posterior communicating artery is visualized however the right is not well seen. There is a small amount of plaque at the left carotid siphon with minimal associated luminal narrowing. The left A1 segment is hypoplastic. The anterior and middle cerebral arteries are otherwise patent, without focal stenosis or suspected thrombosis. No cerebral aneurysms are seen. The dural venous sinuses are patent. CT/CT angio neck IMPRESSION: MINOR PLAQUE, WITHOUT SIGNIFICANT ASSOCIATED STENOSIS OR VASCULAR OCCLUSIVE DISEASE. NO EVIDENCE OF ANEURYSM. INCIDENTAL RIGHT THYROID NODULE. THIS WAS ALSO EVALUATED ON RECENT THYROID ULTRASOUND. Impression dictated by: Megan Lee M.D. 11/20/2024 1:43 PM Dictation Location: [employer] Electronically authenticated by: [id number] Y Date: 11/20/2024 13:43
[2024-11-20 12:12] VITALS: O2SAT 99
[2024-11-20 12:30] LABS: Hematocrit 36.8 % (36.0-48.0); Hemoglobin 12.4 g/dL (12.0-16.0); Mean Corpuscular HGB Conc 33.7 g/dL (29.9-35.2); Mean Corpuscular Hemoglobin 27.3 pg (26.7-34.0); Mean Corpuscular Volume 81.1 fL (81.0-99.0); Platelet Count 293 10^3/uL (150-450); Red Blood Count 4.54 10^6/uL (4.20-5.40); White Blood Count 10.8 10^3/uL (4.0-11.0)
[2024-11-20] MEDS: 0.9 % SODIUM CHLORIDE 1,000 ML 1000 ML IV (12:38)
[2024-11-20 12:40] LABS: Anion Gap 12.1; Blood Urea Nitrogen 25.0 mg/dL (7.0-18.0); Calcium 9.5 mg/dL (8.5-10.1); Carbon Dioxide 26.3 mmol/L (21.0-32.0); Chloride 103 mmol/L (98-107); Estimated GFR (African America >60 (>=60 mL/min/1.73m^2); Estimated GFR (Non-African Ame 59 (>=60 mL/min/1.73m^2); Glucose 101 mg/dL (74-106); Potassium 3.4 mmol/L (3.5-5.1); Sodium 138 mmol/L (136-145)
[2024-11-20] MEDS: PROCHLORPERAZINE 10 MG/2 ML VIAL IV (12:40)
[2024-11-20] MEDS: MORPHINE SULFATE 2 MG/ML SYRINGE IV (12:45)
--- NOTE | 2024-11-20 13:05 | PC.NURSE ---
pt in CT at this time.
[2024-11-20] MEDS: diphenhydrAMINE HCL 25 MG in 0.9 % SODIUM CHLORIDE 100 ML 301.5 MG IV (13:19)
[2024-11-20] MEDS: MAGNESIUM SULFATE IN WATER 2 GM/50 ML PREMIX IV (13:20)
--- NOTE | 2024-11-20 13:22 | ED.GENADUL1 ---
HPI HPI - General Adult General Chief complaint: Headache Stated complaint: NEEDS CT SENT BY DR VALLE Time Seen by Provider: 11/20/24 11:44 Source: patient Mode of arrival: walk-in History of Present Illness HPI narrative: Patient is a 68-year-old female presenting to the emergency department for evaluation of a headache. Patient states that 4 days ago she started experiencing a global headache that was acute in onset. She states she felt faint during the onset of the symptoms, but never lost consciousness. She states that she felt her arm and legs feel warm as well. Since the onset of her headache, it has persisted and has not gotten any better. She states it is constant in nature. She denies any other associated symptoms. She denies any neck pain or stiffness. No fevers or chills. No history of intracranial aneurysms or prior strokes. She denies any visual changes, decreased visual acuity, or double vision. She does note some photophobia. She denies nausea or vomiting. She denies numbness/tingling/weakness in extremities. She denies any vertigo or gait imbalance. She denies any history of trauma. She is not on blood thinners. Denies history of migraines. Related Data Home Medications ?Medication ?Instructions ?Recorded ?Confirmed doxepin 10 mg capsule 10 mg PO DAILY 01/19/24 04/15/24 latanoprost 0.005 % eye drops drp ophthalmic (eye) DAILY 01/19/24 tizanidine 4 mg tablet 4 mg PO Q12H 01/19/24 04/15/24 ascorbic acid (vitamin C) 1,000 mg 1 g PO DAILY 04/13/24 04/15/24 capsule biotin 1 mg capsule 1 mg PO DAILY 04/13/24 04/15/24 calcium 100 mg capsule mg PO 04/13/24 collagen supplement 04/13/24 meloxicam 7.5 mg tablet 7.5 mg PO DAILY 04/13/24 04/15/24 vitamin B complex 1 tab PO DAILY 04/13/24 04/15/24 zinc 50 mg capsule 50 mg PO DAILY 04/13/24 04/15/24 Previous Rx's ?Medication ?Instructions ?Recorded cyclobenzaprine 5 mg tablet 5 mg PO Q8H #14 tabs 11/02/24 hydrocodone 5 mg-acetaminophen 325 1 tab PO Q6H PRN pain #14 tabs 11/02/24 mg tablet ondansetron 4 mg disintegrating 4 mg PO Q6H PRN nausea and 11/02/24 tablet vomiting #14 tabs Allergies Allergy/AdvReac Type Severity Reaction Status Date / Time Sulfa (Sulfonamide Allergy Unknown Verified 11/20/24 11:43 Antibiotics) codeine AdvReac Intermediate UPSET Verified 11/20/24 11:43 STOMACH Opioid HPI Opioid Management Most Recent Opioid Data: Last Pain Scale 10 Today, 12:45 Last ED Pain Assessment Today, 12:12 Last MAR Pain Assessment Today, 12:45 Review of Systems ROS Status of ROS 10 or more systems reviewed and unremarkable except as noted in history and below [facility] Medical History Arthritis ?M19.90 - Unspecified osteoarthritis, unspecified site (ICD-10) Constipation ?K59.00 - Constipation, unspecified (ICD-10) Varicose vein of leg ?I83.90 - Asymptomatic varicose veins of unspecified lower extremity (ICD-10) Renal cyst, left ?N28.1 - Cyst of kidney, acquired (ICD-10) Raynaud phenomenon ?I73.00 - Raynaud's syndrome without gangrene (ICD-10) Osteopenia ?M85.80 - Other specified disorders of bone density and structure, unspecified site (ICD-10) Occult blood positive stool ?R19.5 - Other fecal abnormalities (ICD-10) Multinodular goiter ?E04.2 - Nontoxic multinodular goiter (ICD-10) Lumbar disc disease ?M51.9 - Unspecified thoracic, thoracolumbar and lumbosacral intervertebral disc disorder (ICD-10) Gastroesophageal reflux ?K21.9 - Gastro-esophageal reflux disease without esophagitis (ICD-10) Complex regional pain syndrome I ?G90.50 - Complex regional pain syndrome I, unspecified (ICD-10) Cervical disc disorder ?M50.90 - Cervical disc disorder, unspecified, unspecified cervical region (ICD-10) Hearing loss ?H91.90 - Unspecified hearing loss, unspecified ear (ICD-10) Appendicitis ?K37 - Unspecified appendicitis (ICD-10) Surgical History History of total abdominal hysterectomy and bilateral salpingo-oophorectomy ?Z90.710 - Acquired absence of both cervix and uterus (ICD-10) ?Z90.722 - Acquired absence of ovaries, bilateral (ICD-10) ?Z90.79 - Acquired absence of other genital organ(s) (ICD-10) History of carpal tunnel release ?Z98.890 - Other specified postprocedural states (ICD-10) History of appendectomy ?Z90.49 - Acquired absence of other specified parts of digestive tract (ICD-10) Family History Other Family history of Alzheimer's disease Family history of bone cancer Family history of cancer Family history of coronary artery disease Family history of diabetes mellitus Family history of heart disease Family history of hypertension Family history of myocardial infarction Family history of stroke Social History Within the past year, how often did you have a drink containing alcohol: monthly or less Do you use any of these nicotine containing products: vaping products Non-prescribed substance use: cannabis (any form) Previous occupational history: retired Highest level of school completed/degree received: high school graduate Little interest or pleasure in doing things: not at all Feeling down, depressed, or hopeless: not at all Exam Narrative Exam Narrative: CONSTITUTIONAL: Patient appears uncomfortable, but awake and alert and mentating appropriately. She is sitting in a dark room with sunglasses on SKIN: Was warm and dry. EYES: No scleral icterus. No conjunctival pallor. No scleral injection. EARS, NOSE, THROAT: Moist oral mucosa. No nuchal rigidity. RESPIRATORY: Clear to auscultation bilaterally, no wheezes, crackles, or stridor, no use of accessory muscles CARDIOVASCULAR: Normal rate and regular rhythm. There is no S3, S4, murmur, rub. GASTROINTESTINAL: Abdomen was soft, non-tender, and non-distended. There is no guarding or rebound tenderness MUSCULOSKELETAL: There was no lower extremity edema, erythema, or tenderness. NEUROLOGIC: Patient is alert and oriented to person place and time with normal speech. Memory is normal and thought process is intact. GCS 15. Sensation: sensation to light touch is intact bilaterally in upper and lower extremities. Motor: Good muscle tone. Strength is 5/5 bilaterally in the upper and lower extremities. Cerebellar: Finger to nose intact. Cranial Nerves: Pupils are round, reactive to light and accommodation. Extraocular movements are intact without ptosis. No nystagmus. Facial sensation intact bilaterally to light touch in the V1, V2, V3 distribution. Visual acuity intact. Facial muscle strength is normal and equal bilaterally. Hearing is normal bilaterally. Palate and uvula elevate symmetrically. Shoulder shrug strong and equal bilaterally. Tongue protrudes midline and moves symmetrically. Constitutional Vital Signs, click to edit/add: Last Vital Signs Temp 97.6 F 11/20/24 11:43 Pulse 90 11/20/24 11:43 Resp 18 11/20/24 11:43 BP 168/88 H 11/20/24 11:43 Pulse Ox 99 11/20/24 12:12 O2 Del Method Room Air 11/20/24 12:12 Course Vital Signs Vital signs: Vital Signs Temperature 97.6 F 11/20/24 11:43 Pulse Rate 90 11/20/24 11:43 Respiratory Rate 18 11/20/24 11:43 Blood Pressure 168/88 H 11/20/24 11:43 Pulse Oximetry 99 11/20/24 11:43 Oxygen Delivery Method Room Air 11/20/24 11:43 Temperature 97.6 F 11/20/24 11:43 Pulse Rate 90 11/20/24 11:43 Respiratory Rate 18 11/20/24 11:43 Blood Pressure 168/88 H 11/20/24 11:43 Pulse Oximetry 99 11/20/24 12:12 Oxygen Delivery Method Room Air 11/20/24 12:12 Medical Decision Making [facility] Narrative Medical decision making narrative: Patient is a 68-year-old female presenting to the emergency department for 4 day history of acute onset, persistent headache. Her vital signs are significant for mild hypertension, otherwise were within normal limits. She is afebrile and hemodynamically stable. The patient appears uncomfortable and complaining of a headache, she sitting in the darkly lit room with sunglasses on. She has a normal physical examination otherwise. She has no focal neurologic deficits. Differential diagnosis includes migraine headache, tension headache, intracranial neoplasm/space-occupying lesion, intracranial hemorrhage, subarachnoid hemorrhage, intracranial aneurysm. Low concern for meningitis as she is afebrile without nuchal rigidity. CT/CTA of the head and neck were obtained. IV was established and laboratory studies were obtained. She was given 1 L bolus normal saline, 2 g IV magnesium sulfate, IV Compazine, 2 mg IV morphine, and IV Benadryl for symptomatic treatment. CT head independently reviewed/interpreted by myself demonstrated no acute intracranial pathology or hemorrhage. CTA of the head/neck demonstrated no acute process. No large vessel occlusion, aneurysm, or dissections. No evidence of SAH. Laboratory studies were unremarkable. No significant electrolyte or metabolic derangement. No evidence of acute kidney injury. No anemia, leukocytosis, or thrombocytopenia. On reevaluation, patient states she feels significantly improved and is requesting to be discharged home. Her headache is 50% improved per the patient. Given that she had an acute onset of a headache, I was initially concern for subarachnoid hemorrhage. Because she is 4 days out from the onset of her headache, I cannot definitively rule out SAH with a CT head. I did offer lumbar puncture to definitely rule out SAH/xanthochromia, however the patient states she feels improved and declined further diagnostic testing. I instructed her to return to the emergency department should her symptoms worsen or she develops any new/concerning symptoms. She remains neurologically intact at the time of discharge. Patient understands and agrees to plan. FINAL IMPRESSION: #Acute migraine headache, improved DISPOSITION: Discharged home CONDITION: Fair Lab Data Lab results reviewed: Yes I reviewed the patient's lab results Labs: Lab Results 11/20/24 Range/Units 12:10 WBC 10.8 (4.0-11.0) 10^3/uL RBC 4.54 (4.20-5.40) 10^6/uL Hgb 12.4 (12.0-16.0) g/dL Hct 36.8 (36.0-48.0) % MCV 81.1 (81.0-99.0) fL MCH 27.3 (26.7-34.0) pg MCHC 33.7 (29.9-35.2) g/dL RDW 14.6 (11.0-15.0) % Plt Count 293 (150-450) 10^3/uL MPV 9.5 (9.5-13.5) fL Sodium 138 (136-145) mmol/L Potassium 3.4 L (3.5-5.1) mmol/L Chloride 103 (98-107) mmol/L Carbon Dioxide 26.3 (21.0-32.0) mmol/L Anion Gap 12.1 BUN 25.0 H (7.0-18.0) mg/dL Creatinine 0.94 (0.55-1.02) mg/dL Est GFR ( Amer) >60 (>=60 mL/min/1.73m^2) Est GFR (Non-Af Amer) 59 L (>=60 mL/min/1.73m^2) BUN/Creatinine Ratio 26.6 Glucose 101 (74-106) mg/dL Calcium 9.5 (8.5-10.1) mg/dL Imaging Data CT scan - head: Attestation: I personally reviewed and interpreted this imaging study as follows: Radiologist's impression: ITS Impressions Head CT 11/20/24 11:53 IMPRESSION: NO ACUTE INTRACRANIAL ABNORMALITY. Impression dictated by: Megan Lee M.D. 11/20/2024 1:20 PM Dictation Location: [employer] Electronically authenticated by: [id number] Y Date: 11/20/2024 13:20 Head CTA 11/20/24 11:53 IMPRESSION: MINOR PLAQUE, WITHOUT SIGNIFICANT ASSOCIATED STENOSIS OR VASCULAR OCCLUSIVE DISEASE. NO EVIDENCE OF ANEURYSM. INCIDENTAL RIGHT THYROID NODULE. THIS WAS ALSO EVALUATED ON RECENT THYROID ULTRASOUND. Impression dictated by: Megan Lee M.D. 11/20/2024 1:43 PM Dictation Location: [employer] Electronically authenticated by: [id number] Y Date: 11/20/2024 13:43 Neck CTA 11/20/24 11:53 IMPRESSION: MINOR PLAQUE, WITHOUT SIGNIFICANT ASSOCIATED STENOSIS OR VASCULAR OCCLUSIVE DISEASE. NO EVIDENCE OF ANEURYSM. INCIDENTAL RIGHT THYROID NODULE. THIS WAS ALSO EVALUATED ON RECENT THYROID ULTRASOUND. Impression dictated by: Megan Lee M.D. 11/20/2024 1:43 PM Dictation Location: [employer] Electronically authenticated by: [id number] Y Date: 11/20/2024 13:43 Discharge Plan Discharge Chief Complaint: Headache Clinical Impression: Migraine Patient Disposition: Home, Self-Care Time of Disposition Decision: 13:52 Condition: Fair Mode of Transportation: Private Vehicle Prescriptions / Home Meds: No Action latanoprost 0.005 % drops OPHTHALMIC (EYE) DAILY tizanidine 4 mg tablet 4 mg PO Q12H doxepin 10 mg capsule 10 mg PO DAILY cyclobenzaprine 5 mg tablet 5 mg PO Q8H Qty: 14 0RF hydrocodone-acetaminophen 5-325 mg tablet 1 tab PO Q6H PRN (Reason: pain) Qty: 14 0RF ondansetron 4 mg tablet,disintegrating 4 mg PO Q6H PRN (Reason: nausea and vomiting) Qty: 14 0RF meloxicam 7.5 mg tablet 7.5 mg PO DAILY ascorbic acid (vitamin C) 1,000 mg capsule 1 g PO DAILY vitamin B complex Tablet 1 tab PO DAILY zinc 50 mg capsule 50 mg PO DAILY calcium 100 mg capsule PO collagen supplement biotin 1 mg capsule 1 mg PO DAILY Print Language: Slovenian Instructions: Migraine Headache (ED) Referrals: Kenan Valle MD [Primary Care Provider, Family Practice] - 1 week
--- NOTE | 2024-11-20 13:54 | PC.NURSE ---
pt has call light on, upon entry to pts room, pt expresses readiness for discharge and improvement of VINSON and symptoms. Dr. Daigle made aware of pt requesting discharge home.
[2024-11-20 13:59] VITALS: PULSE 70; O2SAT 97
== END 2024-11-20 14:01 | disposition home or self-care (01) ==
PROVIDERS: Emergency Provider Student in an Organized Health Care Education/Training Program; PCP Family Medicine
DX: G43.909 Migraine, unspecified, not intractable, without status migrainosus (principal); Z90.710 Acquired absence of both cervix and uterus; Z90.722 Acquired absence of ovaries, bilateral; Z90.79 Acquired absence of other genital organ(s); Z90.49 Acquired absence of other specified parts of digestive tract; F17.290 Nicotine dependence, other tobacco product, uncomplicated
CPT/HCPCS: 36415; 70450; 70496; 70498; 80048; 85027; 96365; 96368; 96375; 99285; J0780; J1200; J2270; J3475; Q9967

== ENCOUNTER 2024-12-14 09:35 | Outpatient (OUT) | payer MEDICARE, SELFPAY ==
--- OUTSIDE RECORDS SUMMARY | 2024-12-10 14:51 | XMS_ITS ---
Author Name Auto Generated Organization OHIP Care Team Providers Care Supervisor [employer] Name Role Phone GEORGES BURNS Admitting Unavailable GEORGES BURNS Attending Unavailable Rubén MANUEL Attending Unavailable Anamika Valle Referring Unavailable NILL, Rubén R Attending Unavailable Janine Vallelas Referring Unavailable NILL, Rubén R Attending Unavailable GRANT, GEORGES Admitting Unavailable GRANT, GEORGES Attending Unavailable BROWN, JESSICA A Attending Unavailable BROWN, JESSICA A Attending Unavailable SHEELA, DESI Attending Unavailable BROWN, JESSICA A Attending Unavailable BROWN, JESSICA A Attending Unavailable BROWN, JESSICA A Attending Unavailable BROWN, JESSICA A Attending Unavailable BROWN, JESSICA A Attending Unavailable PETITTI, MARIANNA A Attending Unavailable BROWN, JESSICA A Attending Unavailable AYAH, EVERETT Attending Unavailable KAISER, ROSEMARY Attending Unavailable KAISER, ROSEMARY Attending Unavailable BROWN, JESSICA A Attending Unavailable FELTSHIRIN MARTE A Attending Unavailable BROWN, JESSICA A Attending Unavailable PETITTI, MARIANNA A Attending Unavailable BROWN, JESSICA A Attending Unavailable Hoy, Anamika M Attending Unavailable Hoy, Anamika M Primary Care Unavailable Hoy Anamika M Admitting Unavailable Self, Referral Attending Unavailable Self, Referral Admitting Unavailable Hoy, Anamika M Referring Unavailable Hoy, Anamika M Primary Care Unavailable ALEJANDRA WESTON Attending Unavailable HOJANINE SlaterLAS M Referring Unavailable HOY, ANAMIKA M Primary Care Unavailable PROBLEMS DATE TYPE CONDITION / CODE ATTENDING STATUS [facility] 12/08/2024 Unknown Nontoxic single thyroid nodule / E04.1(ICD-10) Anamika Valle [facility] 12/08/2024 Unknown Personal history of other endocrine, nutritional and metabolic disease / Z86.39(ICD-10) Anamika Valle [facility] 09/09/2024 Active Mixed conductive and sensorineural hearing loss of left ear with restricted hearing of right ear / H90.A32(ICD-10) ALEJANDRA WESTON Active [facility] 09/09/2024 Active Tinnitus, unspec ified laterality / H93.19(ICD-10) ALEJANDRA WESTON Active [facility] 12/27/2023 Unknown Encounter for ut reening mammogram for malignant neoplasm of breast / Z12.31(ICD-10) Self, Referral [facility] PROCEDURES No Procedure Records Found RESULTS CNPN Observed: 12/09/2024 12:00 AM Status: COMPLETED Source: [facility] Telephone (HNQ) XENA EWING ([id number]) 1955 F T Date Time Provider Department 12/09/24 ALEJANDRA WESTON HNQ During your visit today, we recorded the following information about you: Tobias Garcia 12/09/2024 2:52 PM Signed Person Calling: Patient Reason for Call: Called asking to be set up with the [facility] - I do not see a referral from Dr. Weston in her chart so patient is requesting that she put one in. Conchis can you set patient up once Dr. Weston puts the order in? Pt Phone #: [phone] Pharmacy Name and # : Pt last seen: Visit date not found Enio Esparza PA-C 12/09/2024 3:31 PM Signed Addended by: ENIO MENDOZA on: 12/09/2024 03:31 PM Modules accepted: Conchis Callejas 12/09/2024 4:07 PM Signed Patient has been contacted via [employer] for next steps to enroll. Allergies As of Date: 12/09/2024 Noted Allergy Reaction CODEINE 11/29/2004 Date Reviewed: 09/09/2024 Reviewed by: Alejandra Weston MD - Fully Assessed Primary Visit Diagnosis:Tinnitus, bilateral [H93.13] Order(s):[facility] [[id number]] Order #: [id number]: 1 FUTURE Prescriptions as of 12/09/2024 - latanoprost (XALATAN) 0.005 % ophthalmic solution instill 1 drop in both eyes at bedtime - tiZANidine (ZANAFLEX) 4 mg tablet 2 tablets Orally at bedtime for 90 days - amoxicillin-clavulanic acid (AUGMENTIN) 875-125 mg per tablet Take 1 tablet by mouth every 12 hours. - amitriptyline (ELAVIL) 50 mg tablet Take 50 mg by mouth every evening. - cyclobenzaprine (FLEXERIL) 10 mg tablet Take 10 mg by mouth three times daily. - doxepin capsule 10 mg TAKE 1 TO 2 CAPSULES BY MOUTH AT BEDTIME NEEDED FOR ANXIETY - famotidine (PEPCID) 40 mg tablet TAKE 1 TABLET BY MOUTH TWICE DAILY with one dose being AT BEDTIME - pantoprazole DR (PROTONIX) 40 mg tablet Take 1 tablet by mouth every afternoon. - sucralfate (CARAFATE) 1 gram tablet TAKE 1 TABLET BY MOUTH FOUR TIMES DAILY (BEFORE MEALS AND AT BEDTIME ON AN EMPTY STOMACH) - meloxicam (MOBIC) 7.5 mg tablet Take 1 tablet by mouth every afternoon. - alprazolam (XANAX) 0.5 mg ORAL Tab ONE BY MOUTH EVERY HS - PREMARIN 0.625 MG ORAL TAB Take one(1) tablet daily. - ZANTAC 150 MG ORAL TAB Take one(1) tablet daily. Problem List As Of Date 12/09/2024 Noted Resolved CONDUCT HEARING LOSS NOS [H90.2] 11/14/2005 Encounter Status:Closed by TOBIAS GARCIA on 12/09/24 US NEEDLE ASPIRATION Observed: 12:33 PM Status: COMPLETED Source: [facility] [place] [address] Ultrasound Report Signed Patient: Xena Ewing MR#: [id number] : 1955 Acct:[id number] Age/Sex: 68 / F ADM Date: 12/08/24 Loc: Room: Type: [facility] Attending Dr: Anamika Valle MD Ordering Provider: Anamika Valle MD Date of Service: 12/08/24 US/US needle aspiration: E04.1 Copies to: Anamika Valle MD US needle aspiration 12/08/2024 11:56 AM SIGNS AND SYMPTOMS: E04.1 FINE NEEDLE ASPIRATION INFORMED CONSENT: Reason for procedure was discussed with the patient. The procedure expectations risks benefits options and alternatives were discussed. All the questions were answered. The patient understood the results cannot be guaranteed. The procedure is indicated and risks were acceptable. Consent was obtained. PROCEDURE: Grayscale sonographic images in was used to visualize the nodule in the right thyroid lobe. The nodule measures 3.9 x 2.8 x 3.2 cm in greatest dimension. The skin was marked over this location. The skin was prepped and draped in a sterile manner. 5 mL of lidocaine 2% without epinephrine were used for local anesthesia. Using a 25-gauge spinal needle a total of 4 fine needle aspirates were performed under ultrasound visualization. The specimens were deemed to be adequate for diagnosis. The needles were removed and hemostasis was gained using manual pressure. The patient tolerated the procedure well. No immediate complications were detected. US/US needle aspiration IMPRESSION: Successful ultrasound-guided fine-needle aspiration of a right thyroid nodule. Impression dictated by: Ricardo Mojica M.D. 12/08/2024 12:35 PM Dictation Location: [place] [address] Tech: Aydee Watkins Transcribed By: [facility] 12/08/24 123 Dictated By: Ricardo Mojica II, MD 12/08/24 123 Signed By: <Electronically signed by Ricardo Mojica II, MD in OV> 12/08/24 1235 L Observed: 12/08/2024 11:24 AM Status: F Source: [facility] ----- ------- Specimen: [id number] Received: 12/08/24-1150 Status: BABAK [place]ays Num: [id number] Spec Type: Cytology Subm Dr: Ricardo Mojica II, MD Tissues: A FNA SLIDES NOPATH (RT THYROID) Procedures: Cyto Int and Re, DIFF QWIK/3, PAPSTN/4 ----- ------- Age/ Patient Sex Location Account Attending Physician ----- ------- Xena Ewing 68/F [id number] Anamika Valle MD ----- ------- SPEC NUM: [id number] RECD: 12/08/24 STATUS: BABAK REDouglas NUM: [id number] MICHAEL: 12/08/[address] [facility] DR: Ricardo Mojica II, MD ENTERED: 12/08/[address] [facility] [address]: Anamika Valle MD SPEC TYPE: Cytology DEPT: CNG ENTERED BY: [id number] RECV BY: [id number] ORDERED: Cyto Int and Re, DIFF QWIK/3, PAPSTN/4 ORDERED: Cyto Int and Re, DIFF QWIK/3, PAPSTN/4 Pathological Diagnosis Right thyroid nodule FNA: - Atypia of uncertain significance, [place] category III Comment: ThyroSeq testing pending Clinical Information Thyroid Nodule Gross Description Received fixed in Cytolyt is 32 ml red slightly hazy fixed fluid for cytology said to have been obtained as Right Thyroid. ThinPrep preparations are prepared for microscopic examination. Also received are 6 total smeared slides and a Thyroseq vial stored at -20 for microscopic examination. (MG/nh) Immediate Evaluation Sheets of follicular cells -(Adequate) 2nd pass in Throseq Pending stains-(likely [place] II) Armando Castaneda 12/08/24 ----- ------- Specimen: [id number] Received: 12/08/24 Status: BABAK [place] Num: [id number] Spec Type: Cytology Subm Dr: Ricardo Mojica II, MD Tissues: A FNA SLIDES NOPATH (RT THYROID) Procedures: Cyto Int and Re, DIFF QWIK/3, PAPSTN/4 ----- ------- Patient: Xena Ewing [id number] (Continued) ----- ------- Specimen: [id number] Received: 12/08/24 (Continued) Signed (signature on file) Alvin Barkley JR, MD 12/10/24900 ----- ------- Specimen: [id number] Received: 12/08/24 Status: BABAK [place] Num: [id number] Spec Type: Cytology Subm Dr: Ricardo Mojica II, MD Tissues: A FNA SLIDES NOPATH (RT THYROID) Procedures: Cyto Int and Re, DIFF QWIK/3, PAPSTN/4 ----- ------- Patient: Xena Ewing [id number] (Continued) ----- ------- Specimen: [id number] Received: 12/08/24 (Continued) Microscopic Description Microscopic examination was completed. CPT Codes 45022 69244 ----- ------- ----- ------- Specimen: [id number] Received: 12/08/24-1150 Status: BABAK [place] Num: [id number] Spec Type: Cytology Subm Dr: Ricardo Mojica II, MD Tissues: A FNA SLIDES NOPATH (RT THYROID) Procedures: Cyto Int and Re, DIFF QWIK/3, PAPSTN/4 ----- ------- Patient: Xena Ewing [id number] (Continued) ----- ------- Signed (signature on file) Alvin Barkley JR, MD 12/10/24 09 PLATELET COUNT Collected: 10:10 AM Status: F Source: [facility] TYPE CODE TESTS RESULT OUT OF RANGE REFERENCE UNITS LAB PLT Platelet Count 321 Normal 150-450 10*3/uL Result Comment: PERFORMED BY : [place] [address] PATHOLOGIST VAN DRIVER HELPER ARMANDO CASTANEDA M.D. Performed By: #### PLT, PP # ### [address] COAGULATION PROFILE Collected: 12/08/2024 10:10 AM S tatus: F Source: [facility] TYPE CODE TESTS RESULT OUT OF RANGE REFERENCE UNITS LAB R PT Prothrombin Time 10.7 Normal 9.0-12.9 s Result Comment: A hematocrit value greater than 55% may lead to inaccurate results in coagulation testing. Patients having hematocrit values >55% require a special collection tube for coagulation studies. Please contact the laboratory at [phone] for redraw instructions. LAB INR INR 0.9 Result Comment: INR Therapeu tic Range A) Pre- and Peroperative OAT started two weeks before surgery. NOT HIP SURGERY: 1.5 - 2.5 HIP SURGERY: 2 - 3 B) Primary and secondary prevention of venous THROMBOSIS: 2 - 3 C) Active venous thrombosis, pulmonary embolism and prevention of recurrent venous thrombosis: 2 - 3 D) Prevention of arterial thromboembolism including patients with mechanical heart valves: 3 - 4.5 LAB PTT Partial Thromboplastin Time 30.5 Normal 25.1-36.5 s Result Comment: A hematocrit value greater than 55% may lead to inaccurate results in coagulation testing. Patients having hematocrit values >55% require a special collection tube for coagulation studies. Please contact the laboratory at [phone] for redraw instructions. PERFORMED BY: [place] [phone] PATHOLOGIST VAN DRIVER HELPER ARMANDO CASTANEDA M.D. Performed By: #### PLT, PP # ### [address] PROGRESS Observed: 09/09/2024 12:18 PM Status: COMPLETED Source: [facility] HNO ID: [id number] Author: ALEJANDRA WESTON MD Service: ? Author Type: Physician Type: Progress Notes Filed: 09/09/2024 16:46 Note Text: SECTION OF OTOLOGY, NEUROTOLOGY AND LATERAL SKULL BASE SURGERY Department of Otolaryngology - Head and Neck Surgery [facility] [place] September 09, 2024 09/09/2024 Xena Ewing [...] Tobacco Use: High Risk (08/27/2024) Received from [facility] Patient History Smoking Tobacco Use: Never Smokeless [...] Referred to [facility] for comprehensive evaluation and treatment plan. Noted [...] MD Otology/Neurotology/Lateral Skull-Base Surgery Head and Neck [place] [facility] Medical Decision Making: Problems: Moderate: New problem with uncertain prognosis Data: Unique source(s) for external note(s) reviewed: 1 Unique test result(s) reviewed: 1 Unique test(s) ordered: 1 Risk: Minimal: Minimal risk from testing/treatment Medical Decision Making Level: 4 - Moderate CNOV Observed: 09/09/2024 12:00 PM Status: COMPLETED Source: [facility] Office Visit (OTOLBD) MARISABEL EWINGANN ([id number]) 1955 F [facility] Date Time Provider Department 09/09/24 12:00 PM ALEJANDRA WESTON OTOLBD During your visit today, we recorded the following information about you: Alejandra Weston MD 09/09/2024 4:46 PM Signed SECTION OF OTOLOGY, NEUROTOLOGY AND LATERAL SKULL BASE SURGERY Department of Otolaryngology - Head and Neck Surgery [facility] 09, 2024 09/09/2024 Xena Ewing is [...] Tobacco Use: High Risk (08/27/2024) Received from [facility] Patient History Smoking Tobacco Use: Never Smokeless [...] Referred to [facility] for comprehensive evaluation and treatment plan. Noted [...] MD Otology/Neurotology/Lateral Skull-Base Surgery Head and Neck [facility] [facility] Medical Decision Making: Problems: Moderate: New problem with uncertain prognosis Data: Unique source(s) for external note(s) reviewed: 1 Unique test result(s) reviewed: 1 Unique test(s) ordered: 1 Risk: Minimal: Minimal risk from testing/treatment Medical Decision Making Level: 4 - Moderate Referring Provider: ANAMIKA VALLE [[id number]] Allergies As of Date: 09/09/2024 Noted Allergy Reaction CODEINE 11/29/2004 Date Reviewed: 09/09/2024 Reviewed by: Alejandra Weston MD - Fully Assessed Reason for Visit: Ear Problem [38] Primary Visit Diagnosis:Mixed conductive and sensorineural hearing loss of left ear with restricted hearing of right ear [H90.A32] Other Visit Diagnoses:Tinnitus, unspecified laterality [H93.19] Temporomandibular joint disorder [M26.609] Order(s):CONSULT TO ENT [9008] Order #: [id number]: 1 [facility] [2809445] Order #: [id number]: 1 FUTURE Prescriptions as of 09/09/2024 - latanoprost (XALATAN) 0.005 % ophthalmic solution instill 1 drop in both eyes at bedtime - tiZANidine (ZANAFLEX) 4 mg tablet 2 tablets Orally at bedtime for 90 days - amoxicillin-clavulanic acid (AUGMENTIN) 875-125 mg per tablet Take 1 tablet by mouth every 12 hours. - amitriptyline (ELAVIL) 50 mg tablet Take 50 mg by mouth every evening. - cyclobenzaprine (FLEXERIL) 10 mg tablet Take 10 mg by mouth three times daily. - doxepin capsule 10 mg TAKE 1 TO 2 CAPSULES BY MOUTH AT BEDTIME NEEDED FOR ANXIETY - famotidine (PEPCID) 40 mg tablet TAKE 1 TABLET BY MOUTH TWICE DAILY with one dose being AT BEDTIME - pantoprazole DR (PROTONIX) 40 mg tablet Take 1 tablet by mouth every afternoon. - sucralfate (CARAFATE) 1 gram tablet TAKE 1 TABLET BY MOUTH FOUR TIMES DAILY (BEFORE MEALS AND AT BEDTIME ON AN EMPTY STOMACH) - meloxicam (MOBIC) 7.5 mg tablet Take 1 tablet by mouth every afternoon. - alprazolam (XANAX) 0.5 mg ORAL Tab ONE BY MOUTH EVERY HS - PREMARIN 0.625 MG ORAL TAB Take one(1) tablet daily. - ZANTAC 150 MG ORAL TAB Take one(1) tablet daily. Problem List As Of Date 09/09/2024 Noted Resolved CONDUCT HEARING LOSS NOS [H90.2] 11/14/2005 Encounter Status:Closed by ALEJANDRA WESTON on 09/09/24 PLT FUNCTION ASSAY Collected: 4:16 PM Status: F Source: [facility] TYPE CODE TESTS RESULT OUT OF RANGE REFERENCE UNITS LAB 71256-6([facility]) PLATELET FUNCTION.MICHAEL AGEN+EPINEPHR INE INDUCED:TIME: PT:BLD:QN: 96 Normal 70-138 second(s) Result Comment: Normal ASA vWD Glanzmann???s Thrombasthenia ------- ------ ------- COL/EPI Normal Abnormal Abnormal Abnormal Col/ADP Normal Normal Abnormal Abnormal Performed By: #### [id number] #### [facility] [address] [place] [address] LAB MISCELLANEOUS-LC Collected: 02/06/2024 4:16 PM S tatus: F Source: [facility] TYPE CODE TESTS RESULT OUT OF RANGE REFERENCE UNITS LAB CD:[id number] ([facility]) Lab Miscellaneous COMMENT Unknown Result Comment: Test Ordered : 839601 von Willebrand Genes Result Comment MNEGA PDF report to be sent separately This test was developed and its performance characteristics determined by [facility]. It has not been cleared or approved by the Food and Drug Administration. Performed at: [address] [id number] PhD Alfred Hwang LAB CD:[id number] ([facility]) Test Code 388465 Unknown LAB 66085868(LOIN C) Test Name von Willebrand Unknown Performed By: #### [id number] #### [facility] [address] [place] [address] VON WILLEBRAND FACTOR (VWF) AG Collected: 02/06/2024 4:16 PM Status: F Source: [facility] TYPE CODE TESTS RESULT OUT OF RANGE REFERENCE UNITS LAB 26309-0([facility]) VON WILLEBRAND FACTOR AG ACTUAL/NORMAL: RELMCNC:PT:PPP :QN:IA 368 High 50-200 % Result Comment: VWF may elev ate in normal , in samples drawn from [...] developed and its performance characteristics determined by [employer]. It has not been cleared or approved by the Food and Drug Administration. Performed at: [address] [id number] MD Andrew Wilburn Performed By: #### [id number] #### [facility] [address] [place] [address] LUPUS ANTICOAG Collected: 02/06/2024 4:16 PM Status: F Source: [facility] TYPE CODE TESTS RESULT OUT OF RANGE REFERENCE UNITS LAB 57092-0([facility]) COAGULATION SURFACE INDUCED.LUPUS SENSITIVE:TIME:P T:PPP:QN:COAG 29.4 Unknown 0.0-43.5 second(s ) LAB 6303-2([facility]) COAGULATION DILUTE ALICIA VIPER VENOM INDUCED:TIME:PT: PPP:QN:COAG 32.8 Unknown 0.0-47.0 second(s ) LAB 32125-3([facility]) LUPUS ANTICOAGULANT TWO SCREENING TESTS W REFLEX:IMP:PT:PP P:NOM:COAG Comment: Unknown Result Comment: No lupus ant icoagulant was detected. Performed at: [address] [id number] MD Andrew Wilburn Performed By: #### [id number] # ### [facility] [address] [place] [address] VWF ACTIVITY Collected: 02/06/2024 4:16 PM Status: F Source: [facility] TYPE CODE TESTS RESULT OUT OF RANGE REFERENCE UNITS LAB 6014-5(LOINC) VON WILLEBRAND FACTOR.RISTOCET IN COFACTOR ACTIVITY ACTUAL/NORMAL:R ELTIME:PT:PPP:Q N:PLATELET AGGR 346 High 50-200 % Result Comment: Performed at : [facility] [address] [id number] MD Andrew Wilburn Performed By: #### [id number] #### [facility] [address] [place] [address] AMBULATORY VISIT SUMMARY Observed: 02/04 2:42 PM Status: F Source: [facility] Ambulatory Visit Summary MARISABEL EWINGVERNA Messer :1955 Visit Date:02/05/2024 Ambulatory Visit Instructions Your [...] you for choosing us for your care. GENERAL SURGERY OFFICE/CLINI C NOTE Observed: 02/05/2024 2:39 PM Status: F Source: [facility] General Surgery Office/Clini c Note Chief Complaint consultation for positive occult [...] days ago Tobacco Use:. Current vaping or e- cigarette use Smokeless Tobacco Use:. Cigarettes, Vaping, 1 per day. Started age 16.0 Years., 02/05/2024 Family History Diabetes mellitus type 2: Father and Sister. Hypertension: Father. Immunizations Vaccine Date Status SARS-CoV-2 (COVID-19) mRNAMUL.ORD![id number] 12/19/2021 Recorded SARS-CoV-2 (COVID-19) mRNA BNT-162b2 vax 04/04/2021 Recorded SARS-CoV-2 (COVID-19) mRNA BNT-162b2 vax 12/16/2020 Recorded SARS-CoV-2 (COVID-19) mRNA BNT-162b2 vax 11/28/2020 Recorded Result Comment: Electronical ly Signed By: MAR CLARKE, Rubén Robbins\Date and Time Signed: 02/05/24 14:40 EST PROVIDER LETTER Observed: 01/10/2024 12:42 PM Status: F Source: [facility] Provider Letter January 10, 2024 XENA EWING [address] [place] [address] [address], [place] [address] : 1955 Dear Ms. Ewing, We have been trying to reach you with no success regarding a referral from Dr Valle. It is important that you return our call upon receiving this letter. Also, at the time of your call, please provide us with your current information. Thank you for your prompt attention to this matter. Sincerely, [facility] Surgery [phone] MM SCREENING MAMMO BI W/CAD Observed: 12/27/2023 1:04 PM Status: COMPLETED Source: [facility] [place] [address] Mammography Report Signed Patient: Xena Ewing MR#: [id number] : 1955 Acct:[id number] Age/Sex: 68 / F ADM Date: 12/27/23 Loc: [place] Room: Type: [facility] Attending Dr: Referral Self Copies to: [...] Schmidt Jr., D.O.12/27/2023 1:07 PM Dictation Location: [facility] Transcribed By: PWS 12/27/23 1307 Dictated By: Blake Schmidt Jr, DO 12/27/23 1304 Signed By: <Electronically signed by Blake Schmidt Jr, DO in OV> 12/27/23 1307 ALLERGIES DATE TYPE / CODE NAME / CODE REACTION SEVERITY SOURCE 12/08/2024 Drug Allergy/4160 94489(SNOMED CT) Sulfa (Sulfonamide Antibiotics)/F 797516405(RXNO RM) Hives Unknown [facility] 12/08/2024 Drug Allergy/4160 76616(SNOMED CT) codeine/Z58586 1550(RXNORM) Gastrointestinal Upset Unknown [facility] 10/06/2018 Drug Allergy/4160 64486(SNOMED CT) Unable to Assess/O801117 795(RXNORM) [facility] 11/29/2004 DRUG INGREDI/4195 89836(SNOMED CT) CODEINE [facility] DR/507998958 (SNOMED CT) codeine 421932312 [facility] DR/974681813 (SNOMED CT) Cipro [id number] [facility] ENCOUNTERS ADMIT/DISCHARGE ACCOUNT NUMBER ADMITTING ENCOUNTER CLASS LOCATION SOURCE 12/10/2024/12/11/19 [id number] Ambulatory Building:NOM S CI ASAD [facility] 12/08/2024/12/09/19 [id number] [facility] 12/03/2024/12/04/19 [id number] Ambulatory Building:NOM S SWSDERM [facility] 11/26/2024/11/27/19 25 [id number] Ambulatory Building:NOM S CI POD [facility] 11/06/2024/11/07/19 25 [id number] [facility] 10/23/2024/10/24/19 25 [id number] [facility] 10/19/2024/10/20/19 25 [id number] Ambulatory Building:NOM S BCP OB [facility] 10/01/2024/10/02/19 25 [id number] Ambulatory Building:NOM S CI POD [facility] 09/16/2024/09/17/19 25 [id number] Amb[facility] 09/10/2024/09/11/19 25 [id number] Ambulatory Building:NOM S CI POD [facility] 09/09/2024/09/10/19 25 [id number] [facility] 08/27/2024/08/28/19 25 [id number] Ambulatory Building:NOM S CI POD [facility] 08/13/2024/08/14/19 25 [id number] Ambulatory Building:NOM S CI POD [facility] 07/30/2024/07/31/19 25 [id number] Ambulatory Building:NOM S CI POD [facility] 07/09/2024/07/10/19 25 [id number] Ambulatory Building:NOM S CI POD [facility] 06/01/2024/06/02/19 25 [id number] Ambulatory Building:NOM S BCP OB [facility] 05/28/2024/05/29/19 25 [id number] Ambulatory Building:NOM S CI POD [facility] 04/15/2024/04/15/19 25 [id number] Ambulatory CD:[id number] 7Building:CD :[id number] [facility] 04/09/2024/04/09/19 25 [id number] Ambulatory Building:NOM S CI POD [facility] EPIC 03/19/2024/03/19/19 25 [id number] Ambulatory Building:NOM S CI POD [facility] EPIC 02/06/2024/02/06/20 24 [id number] GRANT, GEORGES Ambulatory FTBuilding :FT LAB [facility] 02/06/2024 [id number] GRANT, GEORGES Ambulatory FTBuilding :FT LAB [facility] 02/05/2024/02/05/20 24 [id number] Ambulatory [place]: Sam[place]Room : Exam 2 [facility] 12/27/2023/12/27/19 24 [id number] Self, [facility] 12/17/2023/12/17/19 24 [id number] Ambulatory Building:JONAH PERSON [facility] EPIC 09/14/2022 [id number] Ambulatory [place]:[facility] PAYERS ENCOUNTER GUARANTOR PAYER SUBSCRIBER SOURCE 12/10/2024 XENA SANDS: [place] [address]Vxk: (HP) Primary Insurance:ANTHEM MEDICARE ADVANTAGEPolicy Number: [id number] Date:2023-03-18 XENA SANDS: [id number] [facility] [address] [facility] 12/08/2024 Xena Banerjee [place] [address]Hry: (HP) Primary Insurance:[facility] PFFSPolicy Number: [id number] Date:2024-11-06 Xena OchoaB: [id number] [place] [address]Vlk: (HP) [facility] 12/08/2024 Secondary Insurance:Self PayPolicy Number: Effective Date:2024-11-17 [facility] XENA [place]ANDS: [place] [address]Fzo: (HP) Primary Insurance:ANTHEM MEDICARE ADVANTAGEPolicy Number: [id number] Date:2023-03-18 XENA Ayde JAIMEEDOB: [id number] [place] [address] [facility] EPIC 11/26/2024 XENA EWINGDOB: [place] [address]Iuu: (HP) Primary Insurance:ANTHEM MEDICARE ADVANTAGEPolicy Number: [id number] Date:2023-03-18 XENA EWINGDOB: [id number] [place] [address] [facility] EPIC 11/06/2024 XENA [place]INGDOB: [place] [address]Jbh: (HP) Primary Insurance:ANTHEM MEDICARE ADVANTAGEPolicy Number: [id number] Date:2023-03-18 XENA EWINGDOB: [id number] [place] [address] [facility] EPIC 10/23/2024 XENA EWINGDOB: [place] [address]Svh: (HP) Primary Insurance:ANTHEM MEDICARE ADVANTAGEPolicy Number: [id number] Date:2023-03-18 XENA EWINGDOB: [id number] [place] [address] [facility] EPIC 10/19/2024 XENA [place]INGDOB: [place] [address]Zsg: (HP) Primary Insurance:ANTHEM MEDICARE ADVANTAGEPolicy Number: [id number] Date:2023-03-18 XENA EWINGDOB: [id number] [place] [address] [facility] EPIC 10/01/2024 XENA OCHOAB: [place] [address]Ilc: (HP) Primary Insurance:ANTHEM MEDICARE ADVANTAGEPolicy Number: [id number] Date:2023-03-18 XENA OCHOAB: [id number] [place] [address] [facility] EPIC 09/16/2024 XENA OCHOAB: [place] [address]Kyl: (HP) Primary Insurance:ANTHEM MEDICARE ADVANTAGEPolicy Number: [id number] Date:2023-03-18 XENA OCHOAB: [id number] [place] [address] [facility] 09/10/2024 XENA OCHOAB: [place] [address]Kkz: (HP) Primary Insurance:ANTHEM MEDICARE ADVANTAGEPolicy Number: [id number] Date:2023-03-18 XENA OCHOAB: [id number] [place] [address] [facility] EPIC 09/09/2024 Primary Insurance:[employer]HE[employer] MEDICARE ADVANTAGE OPolicy Number: [id number] Date:[id number] Name:uJstin OCHOAB: [id number] [place] [address] [facility] 08/27/2024 XENA OCHOAB: [place] [address]Hon: (HP) Primary Insurance:ANTHEM MEDICARE ADVANTAGEPolicy Number: [id number] Date:2023-03-18 XENA OCHOAB: [id number] [place] [address] [facility] EPIC 08/13/2024 XENA OCHOAB: [place] [address]Pbo: (HP) Primary Insurance:ANTHEM MEDICARE ADVANTAGEPolicy Number: [id number] Date:2023-03-18 XENA EWINGDOB: [id number] [place] [address] [facility] EPIC 07/30/2024 XENA EWINGDOB: [place] [address]Scu: (HP) Primary Insurance:ANTHEM MEDICARE ADVANTAGEPolicy Number: [id number] Date:2023-03-18 XENA OCHOAB: [id number] [place] [address] [facility] EPIC 07/09/2024 XENA OCHOAB: [place] [address]Yai: (HP) Primary Insurance:ANTHEM MEDICARE ADVANTAGEPolicy Number: [id number] Date:2023-03-18 XENA OCHOAB: [id number] [place] [address] [facility] EPIC 06/01/2024 XENA OCHOAB: [place] [address]Hze: (HP) Primary Insurance:ANTHEM MEDICARE ADVANTAGEPolicy Number: [id number] Date:2023-03-18 XENA OCHOAB: [id number] [place] [address] [facility] EPIC 05/28/2024 XENA OCHOAB: [place] [address]Ajj: (HP) Primary Insurance:[facility] MEDICARE ADVANTAGEPolicy Number: [id number] Date:2023-03-18 XENA OCHOAB: [id number] [place] [address] [facility] EPIC 04/15/2024 XENA OCHOAB: EMILY DRTel: ~~(4 1 (HP) Primary Insurance:AnthemPolicy Number: [id number] Date:[id number] [address] [place] [address]DX: XENA BELL [facility] 04/09/2024 XENA OCHOAB: [place] [address]Iwy: (HP) Primary Insurance:ANTHEM MEDICARE ADVANTAGEPolicy Number: [id number] Date:2023-03-18 XENA OCHOAB: [id number] [place] [address] [facility] EPIC 03/19/2024 XENA OCHOAB: [place] [address]Rmx: (HP) Primary Insurance:ANTHEM MEDICARE ADVANTAGEPolicy Number: [id number] Date:2023-03-18 XENA OCHOAB: [id number] [place] [address] [facility] EPIC 02/06/2024 XENA OCHOAB: EMILY DRTel: ~~(4 1 (HP) Primary Insurance:AnthemPolicy Number: [id number] Date:[id number] [address] [place] [address]SU: XENA BELL [facility] 02/05/2024 XENA OCHOAB: EMILY ~~(4 1 (HP) Primary Insurance:AnthemPolicy Number: [id number] Date:4335-36-07[address], [place] [address]CZ: XENA BELL [facility] 12/27/2023 Xean Banerjee [place] [address]Fgv: (HP) Primary Insurance:[facility] PFFSPolicy Number: [id number] Date:2023-12-02 Xena OchoaB: [id number] [place] [address]Jxq: (HP) [facility] 12/27/2023 Secondary Insurance:Self PayPolicy Number: Effective Date:2023-12-02 [facility] 12/17/2023 XENA OCHOAB: [place] [address]Dlh: (HP) Primary Insurance:ANTHEM MEDICARE ADVANTAGEPolicy Number: [id number] Date:2023-03-18 XENA OCHOAB: [id number] [place] [address] [facility] 09/14/2022 XENA OCHOAB: EMILY ~(41 9 (HP) Primary Insurance:HUMANAPolicy Number: [id number] Date:[id number] [id number] [place] [address]WJ: XENA BELL [facility]
--- NOTE | 2024-12-14 09:45 | ECG_ITS ---
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
[2024-12-14 10:06] LABS: Anion Gap 15.1; Blood Urea Nitrogen 29.0 mg/dL (7.0-18.0); Calcium 10.0 mg/dL (8.5-10.1); Carbon Dioxide 25.7 mmol/L (21.0-32.0); Chloride 101 mmol/L (98-107); Estimated GFR (African America >60 (>=60 mL/min/1.73m^2); Estimated GFR (Non-African Ame 56 (>=60 mL/min/1.73m^2); Glucose 96 mg/dL (74-106); Potassium 3.8 mmol/L (3.5-5.1); Sodium 138 mmol/L (136-145)
== END 2024-12-14 09:36 | disposition home or self-care (01) ==
LOC: CARD 09:36
PROVIDERS: PCP Family Medicine
DX: Z01.812 Encounter for preprocedural laboratory examination (principal); Z01.810 Encounter for preprocedural cardiovascular examination
CPT/HCPCS: 36415; 80048; 93005

== ENCOUNTER 2024-12-14 16:11 | Outpatient (RCR) | payer MEDICARE, SELFPAY | END 2024-12-16 11:45 | disposition home or self-care (01) | LOC: PT 16:11 | PROVIDERS: PCP Family Medicine; Visit Provider Family Medicine | DX: M51.9 Unspecified thoracic, thoracolumbar and lumbosacral intervertebral disc disorder (principal) | CPT/HCPCS: 97161 ==